=== PATIENT | female | born 1940 | race Caucasian/White ===

== ENCOUNTER → 2017-05-13 | Outpatient (CLI) | payer MEDICARE, OTHER ==
[~2017-05-13] MED LIST: ACET-2222 PO; ACHD5005 PO; CATHETER FLUSH 10 ML SYR IV PRN; CHOL2000 PO; CPR500T PO; D50KC PO; DULO60CA6 PO; ESTR0.5T3 PO; FOLI1TAB24 PO; HYDR1TAB PO; IOHEXOL 350 MG/ML 100 ML (OMNIPAQUE 350) VIAL IV ONE; LEVO500T2 PO; LVT.05T PO; LVT.088T; MECL12.579 PO; MULT-974 PO; NAPR220C11 PO; NF-ESOM40C PO; NITR-65 PO; NS 100 ML (IVPB) BAG IV ONE; OMEP-10 PO; ONDA4TAB8 SL; ONDAN4ODT PO; PARO7.5C PO; PRD20T PO; RNT150T PO; SCP1.5TD TD; SULF1TAB38 PO; TRAM50TA2 PO; VITA15DR3 PO; VITIAMS
[2017-05-13 14:22] LABS: RED BLOOD COUNT 5.46 10^6/uL (4.35-5.85); RED CELL DISTRIBUTION WIDTH 13.9 % (10.0-14.5); WHITE BLOOD COUNT 9.7 10^3/uL (4.3-11.0)
[2017-05-13 14:38] LABS: ALBUMIN 4.4 GM/DL (3.2-4.5); BILIRUBIN,TOTAL 0.6 MG/DL (0.1-1.0); CALCIUM 10.2 MG/DL (8.5-10.1); CREATININE SERUM 0.94 MG/DL (0.60-1.30); POTASSIUM 4.2 MMOL/L (3.6-5.0)
--- NOTE | 2017-05-13 15:18 | Diagnostic Imaging Report ---
PROCEDURE: CT abdomen and pelvis with contrast. TECHNIQUE: Multiple contiguous axial images were obtained through the abdomen and pelvis after administration of intravenous contrast. INDICATION: Abdominal pain with nausea and diarrhea. COMPARISON: CT abdomen and pelvis of 11/30/2015. FINDINGS: Lower chest: The lung bases are clear. No pericardial or pleural effusion. Peritoneum: No free intraperitoneal air or fluid. Liver and biliary system: Diffuse hypoattenuation of the liver suggests hepatic steatosis. No focal hepatic lesion. Status post cholecystectomy. No biliary duct dilatation. Spleen and Pancreas: Spleen is normal. The pancreas enhances normally without mass lesion or peripancreatic inflammatory changes. Adrenals: Normal. tract: Stable large exophytic cyst arising from the posterior mid portion of the right kidney, which measures 8.3 x 5.1 cm. No suspicious enhancing renal mass on either side. No obstructive uropathy or urinary tract calculi. Urinary bladder is decompressed and poorly evaluated. Status post hysterectomy. No adnexal mass. GI tract: Stable small hiatus hernia. In the right lower quadrant of the abdomen, there are multiple fluid-filled small bowel loops which demonstrate circumferential wall thickening indicative of enteritis. There is surrounding stranding in the mesenteric fat. No pneumatosis, abscess formation, or evidence of perforation. No dilated small bowel loops to indicate bowel obstruction. Appendix is normal. Vasculature and Lymph nodes: Normal caliber aorta with scattered atherosclerotic plaques. No abdominal or pelvic lymphadenopathy. Retroaortic left renal vein is noted. Musculoskeletal: No concerning osseous lesion. Right total hip arthroplasty without complication. IMPRESSION: 1. Active enteritis involving multiple bowel loops in the right lower quadrant. This is likely infectious in etiology. An ischemic etiology would have a similar appearance, although this is thought less likely due to minimal atherosclerotic disease throughout the aorta and its branches. 2. No bowel obstruction, perforation, or abscess. 3. Diffuse hepatic steatosis. Dictated by: Dictated on workstation # [id number]
== END ==
LOC: RAD 13:57
PROVIDERS: ATTEND Nurse Practitioner Family
DX: K52.9 Noninfective gastroenteritis and colitis, unspecified (principal); K76.0 Fatty (change of) liver, not elsewhere classified; N28.1 Cyst of kidney, acquired; K44.9 Diaphragmatic hernia without obstruction or gangrene; Z96.641 Presence of right artificial hip joint; Z90.49 Acquired absence of other specified parts of digestive tract
CPT/HCPCS: 36415; 74177; 80053; 85027

== ENCOUNTER → 2017-07-08 | Outpatient (CLI) | payer MEDICARE, OTHER ==
[~2017-07-08] MED LIST changes: -CATHETER FLUSH 10 ML SYR IV PRN; -IOHEXOL 350 MG/ML 100 ML (OMNIPAQUE 350) VIAL IV ONE; -NS 100 ML (IVPB) BAG IV ONE
== END ==
LOC: PREOP 05:20
PROVIDERS: ATTEND Surgery
DX: Z01.818 Encounter for other preprocedural examination (principal); Z12.11 Encounter for screening for malignant neoplasm of colon; K21.9 Gastro-esophageal reflux disease without esophagitis

== ENCOUNTER 2017-07-21 05:37 | Outpatient (CLI) | payer MEDICARE, OTHER ==
[~2017-07-21] VITALS: Ht 167.6 cm; Wt 78.0 kg
[2017-07-21] MEDS ORDERED: CHOL200014 PO (11:07)
[2017-07-21] MEDS ORDERED: ESOM40CA52 PO (11:07)
[2017-07-21] MEDS ORDERED: BUPR-42 PO (11:07)
[2017-07-21] MEDS ORDERED: NAPR220C46 PO (11:07)
== END 2017-07-21 11:08 ==
LOC: PREOP 05:37
PROVIDERS: ATTEND Surgery
DX: Z01.818 Encounter for other preprocedural examination (principal); K21.9 Gastro-esophageal reflux disease without esophagitis; Z12.11 Encounter for screening for malignant neoplasm of colon

== ENCOUNTER 2017-07-25 07:30 | Day surgery (SDC) | payer MEDICARE, OTHER ==
[~2017-07-25] VITALS: Ht 167.6 cm; Wt 78.0 kg
[~2017-07-25 07:30] MED LIST changes: +BUPR-42 PO; +CHOL200014 PO; +ESOM40CA52 PO; +NAPR220C46 PO
--- OUTSIDE RECORDS SUMMARY | 2017-07-25 07:32 | XMS REPORT ---
Author ISMAEL Villeda [employer] Address Unknown Phone Unavailable Care Team Providers Care Refined Syrup Operator Name Role Phone ISMAEL VELASCO Unavailable Allergies No Known Allergies Problems Problem Type Condition Code Onset Dates Condition Status Assessment Screening for tuberculosis Z11.1 Active Assessment Visit for TB skin test Z11.1 Active Medications No Known Medications Procedures Procedure Coding System Code Date TB INTRADERMAL TEST CPT-4 32754 Aug 23, 2016 Results Name Result Date Reference Range Unit Abnormality Flag TB INTRADERMAL ----INDURATION (mm) 0mm 20160825 0 - 15 mm ----Time Read [id number] ----Date read 08/25/1620160825 ----Injected by Ana MAKI [id number] ----Exp. date [id number] ----Read by Anyi [id number] ----Date injected 08/23/201620160825 ----RESULTS (Pos/Neg) negative [id number] ----Time Injected 09:36 AM [id number] ----Site RFA [id number] ----Lot # [id number] Summary Purpose eClinicalWorks Submission
--- OUTSIDE RECORDS SUMMARY | 2017-07-25 07:33 | XMS REPORT | Continuity of Care Document ---
Author Author [facility] Organization [facility] Address Unknown Phone Unavailable Allergies Active Description Code Type Severity Reaction Onset Reported/Identified Relationship to Patient Clinical Status Yes Penicillins [id number] Drug Allergy Mild RASH, ITCHING 12/10/2010 Yes codeine [id number] Drug Allergy Unknown RASH, ITCHING 12/06/2014 Medications Problems Date Dx Coded Attending Type Code Diagnosis Diagnosed By 10/17/2010 Ot 446.5 10/17/2010 Ot 780.4 10/28/2010 Ot 780.4 10/28/2010 Ot 787.01 12/10/2010 Ot 173.0 12/10/2010 Ot 173.3 02/14/2011 Ot 599.0 02/14/2011 Ot 788.0 02/14/2011 Ot 789.09 03/08/2011 Ot 300.00 03/08/2011 Ot 599.0 03/08/2011 Ot 782.1 04/06/2011 Ot 530.19 04/06/2011 Ot 535.40 10/22/2011 Ot 276.51 10/22/2011 Ot 787.03 10/22/2011 Ot 787.91 11/15/2014 Ot 433.30 11/15/2014 Ot 793.89 11/15/2014 Ot V76.12 11/15/2014 Ot 173.0 11/15/2014 Ot 173.3 11/15/2014 Ot 780.79 11/15/2014 Ot V72.63 11/15/2014 Ot V72.81 11/15/2014 Ot V74.8 11/15/2014 Ot 530.81 11/15/2014 Ot 553.3 11/15/2014 Ot 723.1 11/15/2014 Ot 787.20 11/15/2014 Ot 433.10 11/15/2014 Ot 268.9 11/15/2014 Ot 733.90 11/15/2014 Ot V82.81 11/15/2014 KARIN MUSTAFA FACC, ALI FACP CCDS Ot 530.81 11/15/2014 KARIN MUSTAFA FACC, ALI FACP CCDS Ot 627.2 11/15/2014 KARIN MUSTAFA FACC, ALI FACP CCDS Ot 780.79 11/15/2014 KARIN MUSTAFA FACC, ALI FACP CCDS Ot 786.09 11/15/2014 KARIN MUSTAFA FACC, ALI FACP CCDS Ot 786.50 11/15/2014 KARIN MUSTAFA FACC, ALI FACP CCDS Ot 530.81 11/15/2014 KARIN MUSTAFA FACC, ALI FACP CCDS Ot 627.2 11/15/2014 KARIN MUSTAFA FACC, ALI FACP CCDS Ot 780.79 11/15/2014 KARIN MUSTAFA FACC, ALI FACP CCDS Ot 786.09 11/15/2014 KARIN MUSTAFA FACC, ALI FACP CCDS Ot 786.50 11/25/2014 Ot 433.30 11/25/2014 Ot 793.89 11/25/2014 Ot V76.12 11/25/2014 Ot 173.0 11/25/2014 Ot 173.3 11/25/2014 Ot 780.79 11/25/2014 Ot V72.63 11/25/2014 Ot V72.81 11/25/2014 Ot V74.8 11/25/2014 Ot 530.81 11/25/2014 Ot 553.3 11/25/2014 Ot 723.1 11/25/2014 Ot 787.20 11/25/2014 Ot 433.10 11/25/2014 Ot 268.9 11/25/2014 Ot 733.90 11/25/2014 Ot V82.81 11/25/2014 KARIN MUSTAFA FACC, ALI FACP CCDS Ot 530.81 11/25/2014 KARIN MUSTAFA FACC, ALI FACP CCDS Ot 627.2 11/25/2014 KARIN MUSTAFA FACC, ALI FACP CCDS Ot 780.79 11/25/2014 KARIN MUSTAFA FACC, ALI FACP CCDS Ot 786.09 11/25/2014 KARIN MUSTAFA FACC, ALI FACP CCDS Ot 786.50 11/25/2014 KARIN MUSTAFA FACC, ALI FACP CCDS Ot 530.81 11/25/2014 KARIN MUSTAFA FACC, ALI FACP CCDS Ot 627.2 11/25/2014 KARIN BELLC, ALI FACP CCDS Ot 780.79 11/25/2014 KARIN MUSTAFA FACC, ALI FACP CCDS Ot 786.09 11/25/2014 KARIN MUSTAFA FACC, ALI FACP CCDS Ot 786.50 12/06/2014 Ot 272.0 PURE HYPERCHOLESTEROLEM 12/06/2014 Ot 530.81 ESOPHAGEAL REFLUX 12/06/2014 Ot 729.5 PAIN IN LIMB 12/06/2014 Ot 786.50 CHEST PAIN NOS 12/06/2014 Ot V58.69 OT MED,LT,CURRENT USE 11/06/2015 Ot 173.0 11/06/2015 Ot 173.3 11/06/2015 Ot 780.79 11/06/2015 Ot V72.63 11/06/2015 Ot V72.81 11/06/2015 Ot V74.8 11/06/2015 Ot 530.81 11/06/2015 Ot 553.3 11/06/2015 Ot 723.1 11/06/2015 Ot 787.20 11/06/2015 Ot 433.10 11/06/2015 Ot 268.9 11/06/2015 Ot 733.90 11/06/2015 Ot V82.81 11/06/2015 KARIN MUSTAFA FACC, YULIET FACP CCDS Ot 530.81 11/06/2015 KARIN MUSTAFA FACC, ALI FACP CCDS Ot 627.2 11/06/2015 KARIN MUSTAFA FACC, ALI FACP CCDS Ot 780.79 11/06/2015 KARIN BELLC, ALI FACP CCDS Ot 786.09 11/06/2015 KARIN BELLC, ALI FACP CCDS Ot 786.50 11/06/2015 KARIN MUSTAFA FACC, ALI FACP CCDS Ot 530.81 11/06/2015 KARIN MUSTAFA FACC, ALI FACP CCDS Ot 627.2 11/06/2015 KARIN BELLC, ALI FACP CCDS Ot 780.79 11/06/2015 KARIN BELLC, ALI FACP CCDS Ot 786.09 11/06/2015 KARIN BELLC, ALI FACP CCDS Ot 786.50 11/06/2015 JUAN CHEN MD Ot 785.9 11/06/2015 Ot 173.0 11/06/2015 Ot 173.3 11/06/2015 Ot 780.79 11/06/2015 Ot V72.63 11/06/2015 Ot V72.81 11/06/2015 Ot V74.8 11/06/2015 Ot 530.81 11/06/2015 Ot 553.3 11/06/2015 Ot 723.1 11/06/2015 Ot 787.20 11/06/2015 Ot 433.10 11/06/2015 Ot 268.9 11/06/2015 Ot 733.90 11/06/2015 Ot V82.81 11/06/2015 KARIN MUSTAFA FAC, ALI FACP CCDS Ot 530.81 11/06/2015 KARIN MUSTAFA FAC, ALI FACP CCDS Ot 627.2 11/06/2015 KARIN MUSTAFA FAC, ALI FACP CCDS Ot 780.79 11/06/2015 KARIN MUSTAFA FAC, ALI FACP CCDS Ot 786.09 11/06/2015 KARIN MUSTAFA FAC, ALI FACP CCDS Ot 786.50 11/06/2015 KARIN MUSTAFA FAC, ALI FACP CCDS Ot 530.81 11/06/2015 KARIN MUSTAFA FACC, ALI FACP CCDS Ot 627.2 11/06/2015 KARIN MUSTAFA FAC, ALI FACP CCDS Ot 780.79 11/06/2015 KARIN MUSTAFA FAC, ALI FACP CCDS Ot 786.09 11/06/2015 KARIN MUSTAFA FAC, ALI FACP CCDS Ot 786.50 11/06/2015 GUSTAVO MUSTAFA, JUAN A Ot 785.9 11/11/2015 GUSTAVO MUSTAFA, JUAN A Ot 785.9 11/27/2015 BLADIMIR ARCE Ot I65.23 11/30/2015 BRITT MUSTAFA, SATINDER Parra Ot M79.1 MYALGIA 11/30/2015 SATINDER DE LA TORRE MD Ot N28.1 CYST OF KIDNEY, ACQUIRED 11/30/2015 BRITT MUSTAFA, SATINDER Parra Ot R10.11 RIGHT UPPER QUADRANT PAIN 11/30/2015 SATINDER DE LA TORRE MD Ot R11.2 NAUSEA WITH VOMITING, UNSPECIFIED 11/30/2015 SATINDER DE LA TORRE MD Ot R19.7 DIARRHEA, UNSPECIFIED 11/30/2015 SATINDER DE LA TORRE MD Ot Z98.1 ARTHRODESIS STATUS 12/12/2015 BLADIMIR ARCE SOUND TECHNICIAN Ot I65.23 01/12/2016 BLADIMIR ARCE SOUND TECHNICIAN Ot M19.031 01/15/2016 BLADIMIR ARCE SOUND TECHNICIAN Ot M19.031 01/16/2016 BRITT MUSTAFA, SATINDER T Ot M79.1 MYALGIA 01/16/2016 BRITT MUSTAFA, SATINDER T Ot N28.1 CYST OF KIDNEY, ACQUIRED 01/16/2016 SATINDER DE LA TORRE MD T Ot R10.11 RIGHT UPPER QUADRANT PAIN 01/16/2016 SATINDER DE LA TORRE MD T Ot R11.2 NAUSEA WITH VOMITING, UNSPECIFIED 01/16/2016 SATINDER DE LA TORRE MD T Ot R19.7 DIARRHEA, UNSPECIFIED 01/16/2016 BRITT MUSTAFA, SATINDER T Ot Z98.1 ARTHRODESIS STATUS 01/29/2016 BLADIMIR ARCE SOUND TECHNICIAN Ot M19.031 PRIMARY OSTEOARTHRITIS, RIGHT WRIST 01/30/2016 SATINDER DE LA TORRE MD T Ot M79.1 MYALGIA 01/30/2016 BRITT MUSTAFA, SATINDER T Ot N28.1 CYST OF KIDNEY, ACQUIRED 01/30/2016 SATINDER DE LA TORRE MD T Ot R10.11 RIGHT UPPER QUADRANT PAIN 01/30/2016 SATINDER DE LA TORRE MD T Ot R11.2 NAUSEA WITH VOMITING, UNSPECIFIED 01/30/2016 SATINDER DE LA TORRE MD T Ot R19.7 DIARRHEA, UNSPECIFIED 01/30/2016 BRITT MUSTAFA, SATINDER T Ot Z98.1 ARTHRODESIS STATUS 02/19/2016 BLADIMIR ARCE SOUND TECHNICIAN Ot M19.031 PRIMARY OSTEOARTHRITIS, RIGHT WRIST 02/20/2016 THALIA HU SALES PROMOTION DIRECTOR Ot M25.521 PAIN IN RIGHT ELBOW 02/20/2016 THALIA HU SALES PROMOTION DIRECTOR Ot M79.631 PAIN IN RIGHT FOREARM 03/19/2016 LISA RIVERA DO Ot M25.531 PAIN IN RIGHT WRIST 03/19/2016 LISA RIVERA DO Ot M25.531 PAIN IN RIGHT WRIST 04/09/2016 LISA RIVERA DO Ot M24.831 OTH SPECIFIC JOINT DERANGEMENTS OF RIGHT 04/09/2016 LISA RIVERA DO Ot M25.531 PAIN IN RIGHT WRIST 04/09/2016 LISA RIVERA DO Ot M65.841 OTHER SYNOVITIS AND TENOSYNOVITIS, RIGHT 04/21/2016 LISA RIVERA DO Ot M24.831 OTH SPECIFIC JOINT DERANGEMENTS OF RIGHT 04/21/2016 LISA RIVERA DO Ot M25.531 PAIN IN RIGHT WRIST 04/21/2016 LISA RIVERA DO Ot M65.841 OTHER SYNOVITIS AND TENOSYNOVITIS, RIGHT 05/13/2017 Ot 433.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 W O CEREBRAL IN 05/13/2017 Ot 268.9 VITAMIN D DEFICIENCY NOS 05/13/2017 Ot 733.90 BONE CARTILAGE DIS NOS 05/13/2017 Ot V82.81 SCREENING FOR OSTEOPOROSIS 05/13/2017 KARIN MUSTAFA FACC, ALI FACP CCDS Ot 530.81 ESOPHAGEAL REFLUX 05/13/2017 KARIN MUSTAFA FACC, ALI FACP CCDS Ot 627.2 SYMPT MENOPAUSE OR FEMALE CLIMACTERIC ST 05/13/2017 KARIN MUSTAFA FACC, ALI FACP CCDS Ot 780.79 OTH MALAISE FATIGUE 05/13/2017 KARIN MUSTAFA FACC, ALI FACP CCDS Ot 786.09 RESPIRATORY ABNORM NEC 05/13/2017 KARIN MUSTAFA FACC, ALI FACP CCDS Ot 786.50 CHEST PAIN NOS 05/13/2017 KARIN MUSTAFA FACC, ALI FACP CCDS Ot 530.81 ESOPHAGEAL REFLUX 05/13/2017 KARIN MUSTAFA FACC, ALI FACP CCDS Ot 627.2 SYMPT MENOPAUSE OR FEMALE CLIMACTERIC ST 05/13/2017 KARIN MUSTAFA FACC, ALI FACP CCDS Ot 780.79 OTH MALAISE FATIGUE 05/13/2017 KARIN MUSTAFA FACC, ALI FACP CCDS Ot 786.09 RESPIRATORY ABNORM NEC 05/13/2017 KARIN MUSTAFA FACC, ALI FACP CCDS Ot 786.50 CHEST PAIN NOS 05/13/2017 JUAN CHEN MD Ot 785.9 CARDIOVAS SYS SYMP NEC 05/13/2017 BLADIMIR ARCE SOUND TECHNICIAN Ot I65.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 AND STENOSIS OF BILATERAL BUCK 05/13/2017 BLADIMIR ARCE SOUND TECHNICIAN Ot M19.031 PRIMARY OSTEOARTHRITIS, RIGHT WRIST 05/13/2017 THALIA HU Nicholas SALES PROMOTION DIRECTOR Ot M25.521 PAIN IN RIGHT ELBOW 05/13/2017 THALIA HU Nicholas SALES PROMOTION DIRECTOR Ot M79.631 PAIN IN RIGHT FOREARM 05/13/2017 MIGUEL CASTRO LISA Alexander Ot M24.831 OTH SPECIFIC JOINT DERANGEMENTS OF RIGHT 05/13/2017 MIGUEL CASTRO LISA Alexander Ot M25.531 PAIN IN RIGHT WRIST 05/13/2017 MIGUEL CASTRO LISA Alexander Ot M65.841 OTHER SYNOVITIS AND TENOSYNOVITIS, RIGHT 05/16/2017 BLADIMIR ARCE SOUND TECHNICIAN Ot K44.9 DIAPHRAGMATIC HERNIA WITHOUT OBSTRUCTION 05/16/2017 BLADIMIR ARCE SOUND TECHNICIAN Ot K52.9 NONINFECTIVE GASTROENTERITIS AND COLITIS 05/16/2017 BLADIMIR ARCE SOUND TECHNICIAN Ot K76.0 FATTY (CHANGE OF) LIVER, NOT ELSEWHERE C 05/16/2017 BLADIMIR ARCE SOUND TECHNICIAN Ot N28.1 CYST OF KIDNEY, ACQUIRED 05/16/2017 BLADIMIR ARCE SOUND TECHNICIAN Ot Z90.49 ACQUIRED ABSENCE OF OTHER SPECIFIED PART 05/16/2017 BLADIMIR ARCE SOUND TECHNICIAN Ot Z96.641 PRESENCE OF RIGHT ARTIFICIAL HIP JOINT 06/07/2017 BLADIMIR ARCE SOUND TECHNICIAN Ot K44.9 DIAPHRAGMATIC HERNIA WITHOUT OBSTRUCTION 06/07/2017 BLADIMIR ARCE SOUND TECHNICIAN Ot K52.9 NONINFECTIVE GASTROENTERITIS AND COLITIS 06/07/2017 BLADIMIR ARCE SOUND TECHNICIAN Ot K76.0 FATTY (CHANGE OF) LIVER, NOT ELSEWHERE C 06/07/2017 BLADIMIR ARCE SOUND TECHNICIAN Ot N28.1 CYST OF KIDNEY, ACQUIRED 06/07/2017 BLADIMIR ARCE SOUND TECHNICIAN Ot Z90.49 ACQUIRED ABSENCE OF OTHER SPECIFIED PART 06/07/2017 BLADIMIR ARCE SOUND TECHNICIAN Ot Z96.641 PRESENCE OF RIGHT ARTIFICIAL HIP JOINT Procedures Results Test Result Range Automated blood complete blood count (hemogram) panel - 05/13/17 14:12 Blood leukocytes automated count (number/volume) 9.7 10*3/ uL 4.3-11.0 Blood erythrocytes automated count (number/volume) 5.46 10*6 /uL 4.35-5.85 Venous blood hemoglobin measurement (mass/volume) 16.4 g/dL 11.5-16.0 Blood hematocrit (volume fraction) 49 % 35-52 Automated erythrocyte mean corpuscular volume 89 [foz_us] 80-99 Automated erythrocyte mean corpuscular hemoglobin (mass per erythrocyte) 30 pg 25-34 Automated erythrocyte mean corpuscular hemoglobin concentration measurement ( mass/volume) 34 g/dL 32-36 Automated erythrocyte distribution width ratio 13.9 % 10.0-14.5 Automated blood platelet count (count/volume) 298 10*3/uL 130-400 Automated blood platelet mean volume measurement 10.0 [foz_ us] 7.4-10.4 Comprehensive metabolic panel - 05/13/17 14:12 Serum or plasma sodium measurement (moles/volume) 142 mmol/ L 135-145 Serum or plasma potassium measurement (moles/volume) 4.2 mmol/L 3.6-5.0 Serum or plasma chloride measurement (moles/volume) 106 mmol /L 98-107 Carbon dioxide 25 mmol/L 21-32 Serum or plasma anion gap determination (moles/volume) 11 mmol/L 5-14 Serum or plasma urea nitrogen measurement (mass/volume) 7 mg /dL 7-18 Serum or plasma creatinine measurement (mass/volume) 0.94 mg /dL 0.60-1.30 Serum or plasma urea nitrogen/creatinine mass ratio 7 NRG Serum or plasma creatinine measurement with calculation of estimated glomerular filtration rate 58 NRG Serum or plasma glucose measurement (mass/volume) 116 mg/dL 70-105 Serum or plasma calcium measurement (mass/volume) 10.2 mg/ dL 8.5-10.1 Serum or plasma total bilirubin measurement (mass/volume) 0.6 mg/dL 0.1-1.0 Serum or plasma alkaline phosphatase measurement (enzymatic activity/volume) 134 U/L 40-136 Serum or plasma aspartate aminotransferase measurement (enzymatic activity/ volume) 25 U/L 5-34 Serum or plasma alanine aminotransferase measurement (enzymatic activity/volume ) 27 U/L 0-55 Serum or plasma protein measurement (mass/volume) 8.0 g/dL 6.4-8.2 Serum or plasma albumin measurement (mass/volume) 4.4 g/dL 3.2-4.5 Encounters ACCT No. Visit Date/Time Discharge Status Pt. Type Provider Facility Loc./Unit Complaint [id number] 07/08/2017 05:20:00 2016 23:59:59 CLS Outpatient TREVOR BEACH MD [facility] PREOP SCREENING/CHRONIC GERD [id number] 05/13/2017 13:57:00 2016 23:59:59 CLS Outpatient BLADIMIR ARCE [facility] RAD ABD PAIN [id number] 03/19/2016 17:02:00 2015 23:59:59 CLS Outpatient MIGUEL LISA [facility] RAD RT WRIST PAIN [id number] 02/19/2016 09:38:00 2015 23:59:59 CLS Outpatient THALIA HU APRN [facility] RAD RT ELBOW AND FOREARM PAIN SEVERE [id number] 01/09/2016 14:34:00 2015 23:59:59 CLS Outpatient BLADIMIR ARCE [facility] RAD RT WRIST PAIN [id number] 11/30/2015 09:03:00 2015 13:12:00 DIS Emergency BRITT MUSTAFA, SATINDER Parra [facility] ER BODY ACHES,VOMITING,DIARRHEA [id number] 11/06/2015 12:33:00 2015 23:59:59 CLS Outpatient BLADIMIR ARCE [facility] RAD STENOSIS [id number] 11/18/2014 11:00:00 2014 23:59:59 CLS Outpatient JUAN CHEN MD [facility] RAD CAROTID BRUIT [id number] 07/30/2013 10:59:00 2012 23:59:59 CLS Outpatient KARIN MUSTAFA FACC, YULIET BERRIOS CCDS [facility] RAD CP,DYSPNEA,WEAKNESS [id number] 07/25/2013 07:44:00 2012 23:59:59 CLS Outpatient YULIET FRAZIER MD, FACC, FACP CCDS [facility] CARD CP,DYSPNEA,WEAKNESS [id number] 07/25/2017 09:15:00 PEN Preadmit TREVOR BEACH MD [facility] ENDO SCREENING/CHRONIC GERD [id number] 12/06/2014 06:47:00 Document Registration [id number] 01/05/2013 08:43:00 Document Registration [id number] 02/11/2012 10:40:00 Document Registration [id number] 10/22/2011 06:11:00 Document Registration [id number] 04/22/2011 08:29:00 Document Registration [id number] 04/06/2011 07:26:00 Document Registration [id number] 03/08/2011 06:38:00 Document Registration [id number] 02/14/2011 16:13:00 Document Registration [id number] 12/10/2010 05:38:00 Document Registration [id number] 12/03/2010 11:01:00 Document Registration [id number] 10/28/2010 12:35:00 Document Registration [id number] 10/17/2010 12:21:00 Document Registration [id number] 03/30/2010 09:50:00 Document Registration
[2017-07-25 07:57] VITALS: BP 114/52
[2017-07-25] MEDS ORDERED: HURRICAINE EXT TUBE (BENZOCAINE) XX PRN (08:00)
[2017-07-25] MEDS ORDERED: NS IV 500 ML 500 ML IV PRN (08:00)
[2017-07-25] MEDS ORDERED: fentaNYL INJECTION 100 MCG/2 ML AMP ONE ×2 (09:25)
[2017-07-25] MEDS ORDERED: HURRICAINE EXT TUBE (BENZOCAINE) ONE (09:26)
[2017-07-25] MEDS ORDERED: MIDAZOLAM 2 MG/2 ML (VERSED) VIAL ONE ×4 (09:26)
--- NOTE | 2017-07-25 09:35 | History & Physicial ---
History of Present Illness History of Present Illness Reason for visit/HPI to undergo upper endoscopy to investigate symptoms of reflux disease and concomitant screening colonoscopy. Reports being told about a rectal polyp on a screening colonoscopy 15 years ago. No family history of colon cancer. Date of Admission Date Seen by Provider: Jul 25, 2017 Time Seen by Provider: 09:32 I consulted on this patient on 07/25/17 09:31 Attending Physician Trevor Perales MD Admitting Physician Abril Sheridan MD Consult Allergies and Home Medications Allergies Coded Allergies: Penicillins (Verified Allergy, Mild, RASH, ITCHING, 12/10/10) codeine (Unverified Allergy, Unknown, RASH, ITCHING, 12/06/14) Home Medications Bupropion HCl 150 Mg Tab.er.24h, 150 MG PO DAILY, (Reported) Cholecalciferol (Vitamin D3) 2,000 Unit Tablet, 2,000 UNIT PO DAILY, (Reported) Esomeprazole Magnesium 40 Mg Capsule.dr, 40 MG PO DAILY, (Reported) Naproxen Sodium 220 Mg Capsule, 440 MG PO DAILY, (Reported) take 2 (220mg) tabs Past Cslzafl-Dhdozo-Mdqqdk Hx Patient Social History Marrital Status: Employed/Student: retired Alcohol Use: Denies Use Recreational Drug Use: No Smoking Status: Former Smoker Recent Foreign Travel: No Contact w/other who traveled: No Recent Hopitalizations: No Recent Infectious Disease Expo: No Immunizations Up To Date Date of Pneumonia Vaccine: Jul 03, 2013 Date of Influenza Vaccine: Jul 03, 2016 Seasonal Allergies Seasonal Allergies: No Surgeries Yes Section, Hysterectomy, Joint Replacement, Orthopedic Respiratory No Cardiovascular Yes High Cholesterol Reproductive System : Yes Hx Reproductive Disorders: No Sexually Transmitted Disease: No FA[employer] FO[employer]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 History: Hysterectomy Gastrointestinal Yes Gastroesophageal Reflux Musculoskeletal Yes Arthritis, Chronic Back Pain Endocrine History of Endocrine Disorders: No Cancer Skin Psychosocial History of Psychiatric Problem: Yes Behavioral Health Disorders: Anxiety, Depression Integumentary Skin/Integumentary Disorders: Psoriasis Blood Transfusions Adverse Reaction to a Blood Tr: No Constitutional: no symptoms reported EENTM: no symptoms reported Respiratory: no symptoms reported Cardiovascular: no symptoms reported Gastrointestinal: see HPI Genitourinary: no symptoms reported Musculoskeletal: joint pain Skin: rash Psychiatric/Neurological: Anxiety Physical Exam Vital Signs Vital Sign - Last 12Hours 07/25/17 07:57 Temp 97.5 Pulse 81 Resp 16 B/P (MAP) 114/52 Pulse Ox 95 O2 Delivery Room Air Capillary Refill : General Appearance: No Apparent Distress HEENT: Normal ENT Inspection Neck: Normal Inspection Respiratory: Lungs Clear Cardiovascular: Regular Rate, Rhythm Gastrointestinal: Non Tender, Soft Back: Normal Inspection Extremity: Normal Inspection Neurologic/Psychiatric: Alert, Oriented x3 Skin: Warm/Dry Assessment/Plan Assessment and Plan epigastric pain. Personal history of polyps.4 upper endoscopy and colonoscopy. Details reviewed thoroughly and she is in agreement to proceed. Problems: TREVOR PERALES MD Jul 25, 2017 9:35 am
--- NOTE | 2017-07-25 09:36 | Conscious Sedation/ASA ---
Conscious Sedation Pre-Proced Time Reviewed: 08:56 ASA Class: 2 Airway Mallampati Classification: ([place] appropriate class) I. II. III, IV Lungs Heart ASA score ASA 1: a normal healthy patient ASA 2: a patient with a mild systemic disease (mid diabetes, controlled hypertension, obesity ASA 3: a patient with a severe systemic disease that limits activity (angina , COPD, prior Myocardial infarction) ASA 4: a patient with an incapacitating disease that is a constant threat to life (CHF, renal failure) ASA 5: a moribund patient not expected to survive 24 hrs. (ruptured aneurysm) ASA 6: a declared brain patient whose organs are being harvested. For emergent operations, add the letter E after the classification Grade 2 Sedation Plan: Discussed options with patient/fam Note The patient is an appropriate candidate to undergo the planned procedure, sedation, and anesthesia. The patient immediately re-assessed prior to indication. TREVOR BEACH MD Jul 25, 2017 9:36 am
[2017-07-25] MEDS: fentaNYL INJECTION 100 MCG/2 ML AMP IVP PRN ×2 (09:39→09:57)
[2017-07-25] MEDS: MIDAZOLAM 2 MG/2 ML (VERSED) VIAL IVP PRN ×3 (09:40→10:05)
--- NOTE | 2017-07-25 10:18 | Endo Procedure Record ---
Endo Procedure Report Date of Procedure Jul 25, 2017 Surgeon (s) TREVOR BEACH MD Post Procedure/Op Diagnosis EGD: Hiatal hernia. Antral erosions and distal gastritis colonoscopy: 1 mm polyp at mid transverse colon Procedure Performed EGD with antral biopsy Colonoscopy to cecum hot biopsy polypectomy Description of Procedure Anesthesia Type: Conscious Sedation Specimen(s) collected/removed antral mucosa. Transverse colon polyp Description of the Procedure indication for procedure: This lady came in for an endoscopic assessment of symptoms of gastroesophageal reflux and for screening colonoscopy. Informed consent was obtained after reviewing the procedures in detail. Description of the procedures: EGD: She was placed in left lateral decubitus position and her vital signs were monitored. Conscious sedation was achieved using Versed and fentanyl. The proximal gastroscope was then introduced down the esophagus, past the stomach, into the proximal duodenum. Findings Esophagus: Short, hiatal hernia with no esophagitis. Stomach: 1 mm distal gastric erosion with mild gastritis. Biopsy for H. pylori was obtained. Duodenum: Normal She tolerated the procedure well and was turned around in preparation for colonoscopy Impression: Symptoms of reflux disease. Distal gastritis and gastric erosion. Helicobacter status pending. Colonoscopy/polypectomy: Digital rectal examination was unremarkable. The colonoscope was then introduced in the rectum and advanced with some difficulty to the cecum. It was then withdrawn slowly and the mucosa examined in a systematic fashion Findings: Internal hemorrhoids of mild severity. 1 mm polyp at the mid transverse colon, that is excised with hot biopsy forceps. She tolerated the procedures well and was taken back to the nursing area in a stable condition. Impression: Screening colonoscopy. Small polyp excised from the transverse colon. Recommend repeating in 5 years. Copies To: JUAN CHEN MD, XAVIER M MD Jul 25, 2017 10:18 am
--- NOTE | 2017-07-25 10:19 | Discharge Inst-Simple/Standard ---
Discharge Inst-Standard Discharge Medications New, Converted or Re-Newed RX: Other Patient Instructions/Follow Up Plan of Care/Instructions/FU: repeat colonoscopy in 5 years Activity as Tolerated: Yes Discharge Diet: No Restrictions [place] MD Jul 25, 2017 10:19 am
[2017-07-25 10:45] VITALS: BP 127/65
[2017-07-25 11:10] VITALS: BP 116/76
[2017-07-25 11:16] VITALS: BP 116/76
== END 2017-07-25 11:20 | disposition home or self-care (01) ==
LOC: ENDO 07:30
PROVIDERS: ATTEND Surgery
DX: K25.9 Gastric ulcer, unspecified as acute or chronic, without hemorrhage or perforation (principal); K63.5 Polyp of colon; K29.70 Gastritis, unspecified, without bleeding; K44.9 Diaphragmatic hernia without obstruction or gangrene; Z87.891 Personal history of nicotine dependence; E78.00 Pure hypercholesterolemia, unspecified; F32.9 Major depressive disorder, single episode, unspecified; F41.9 Anxiety disorder, unspecified; Z86.010 Personal history of colon polyps
CPT/HCPCS: 88305

== ENCOUNTER → 2018-04-14 | Outpatient (CLI) | payer MEDICARE, OTHER ==
--- NOTE | 2018-04-14 15:15 | Diagnostic Imaging Report ---
PROCEDURE: US carotid duplex, bilateral. TECHNIQUE: Multiple real-time grayscale images were obtained over the carotid arteries in various projections, bilaterally. Additional duplex Doppler and color Doppler images were also obtained. INDICATION: Carotid bruit. FINDINGS: There is mild plaque at the right carotid bifurcation. The velocities are within normal limits. No velocity elevation or stenosis is identified. Both vertebral arteries demonstrate antegrade flow. IMPRESSION: No evidence of a hemodynamically significant stenosis. Parameters based on the consensus panel Joseph-Scale and Doppler ultrasound criteria published August 2003, Radiology, Volume 229. DOPPLER (peak systolic velocity M/S Right Left CCA .74 .75 ICA Proximal .65 .68 ICA Mid .72 .82 ICA Distal .58 1.07 RATIO 1.0 1.7 ECA 1.03 1.01 VERT .60 .50 Dictated by: Dictated on workstation # [id number]
== END ==
LOC: RAD 14:05
PROVIDERS: ATTEND Nurse Practitioner Family
DX: R09.89 Other specified symptoms and signs involving the circulatory and respiratory systems (principal)
CPT/HCPCS: 93880

== ENCOUNTER 2018-06-14 05:57 | Outpatient (CLI) | payer MEDICARE, OTHER ==
[~2018-06-14 05:57] MED LIST changes: -CHOL200014 PO; +CHOL200085 PO; +CYAN10007 PO; +MULT-35 PO
== END 2018-06-14 13:26 | disposition home or self-care (01) ==
LOC: PREOP 05:57
PROVIDERS: ATTEND Specialist
DX: Z01.818 Encounter for other preprocedural examination (principal)

== ENCOUNTER 2018-06-16 07:22 | Day surgery (SDC) | payer MEDICARE, OTHER ==
[~2018-06-16] VITALS: Ht 167.6 cm; Wt 78.0 kg
[2018-06-16] MEDS ORDERED: EPINEPHrine INJECTION 1 MG/ML AMP INJ ONE (07:30)
[2018-06-16] MEDS ORDERED: LIDOCAINE PF 1% 2 ML AMP IR PRN (07:30)
[2018-06-16] MEDS ORDERED: VANCOMYCIN/BSS (COMPOUNDED) 10 MG/ML SYR OP ONE (07:30)
[2018-06-16] MEDS ORDERED: POVIDONE (BETADINE) OPHTH SOLN 5% 30 ML OP ONE (07:30)
[2018-06-16] MEDS ORDERED: TIMOLOL MALEATE 0.5% 5 ML (TIMOPTIC) BTL OU PRN (07:30)
--- OUTSIDE RECORDS SUMMARY | 2018-06-16 07:31 | XMS REPORT | CCD ---
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 Name Role Phone PP Unavailable CCM Unavailable Summary Purpose Interface Exchange Insurance Providers Payer name Policy type / Coverage type Covered republican ID Effective Begin Date Effective End Date WPS Medicare Part B Medicare Part B [id number] Unknown Unknown E[employer] LIFE Medicare Part B [id number] Unknown Unknown Family history Sister Diagnosis Age At Onset No Family Disease Entered N/A Mother Diagnosis Age At Onset Osteoporosis Unknown Daughter Diagnosis Age At Onset No Family Disease Entered N/A Father Diagnosis Age At Onset Heart Attack Unknown Daughter Diagnosis Age At Onset No Family Disease Entered N/A Side Diagnosis Age At Onset Diabetes mellitus Type 2 Unknown Brother Diagnosis Age At Onset Heart Attack Unknown Cancer Unknown Social History Social History Element Codes Description Effective Dates Tobacco history SNOMED CT: 486934517 Never smoker 11/30/[address]: 311242682 Never drinks alcohol 11/30/2012 Has the patient ever used illegal drugs? Unknown Has never used illegal drugs 11/30/2012 Has the patient used marijuana? Unknown No 11/30/2012 Has the patient used cocaine? Unknown No 11/30/2012 Allergies, Adverse Reactions, Alerts Substance Reaction Codes Entered Date Inactivated Date Status CODEINE rash RxNorm: 2670 11/30/2012 No Inactive Date Active Past Medical History Illness Codes Condition Status Onset Date Resolved Date Generalized anxiety disorder ICD-9: 300.00 ICD-10: F41.1 Active 06/21/2017 Unknown Major depressive disorder, single episode, moderate ICD-9: 296.22 ICD-10: F32.1 Active 06/21/2017 Unknown Other psoriasis ICD-9 : 696.1 ICD-10: L40.8 Active 11/16/2016 Unknown Periapical abscess without sinus ICD-9: 522.4 ICD-10: K04.7 Active 10/18/2017 Unknown Gastro-esophageal reflux disease without esophagitis ICD-9: 530.81 ICD-10: K21.9 Active 06/14/2017 Unknown Generalized abdominal pain ICD-9: 789.07 ICD-10: R10.84 Active 05/13/2017 Unknown Major depressive disorder, single episode, unspecified ICD-9: 311 ICD-10: F32.9 Active 04/12/2016 Unknown Other pruritus ICD-9: 698.8 ICD-10: L29.8 Active 06/14/2017 Unknown Infectious gastroenteritis and colitis, unspecified ICD-9: 009.0 ICD-10: A09 Active 05/13/2017 Unknown Nausea ICD-9: 787.02 ICD-10: R11.0 Active 12/08/2015 Unknown Other fatigue ICD-9: 780.79 ICD-10: R53.83 Active 01/13/2017 Unknown Vitamin B12 deficiency anemia, unspecified ICD-9: 266.2 ICD-10: D51.9 Active 10/30/2015 Unknown Vitamin D deficiency, unspecified ICD-9: 268.9 ICD-10: E55.9 Active 12/05/2012 Unknown Other chronic pain ICD -9: 338.29 ICD-10: G89.29 Active 06/09/2016 Unknown Primary generalized (osteo)arthritis ICD-9: 715.09 ICD-10: M15.0 Active 06/09/2016 Unknown Muscle weakness (generalized) ICD-9: 780.79 ICD-10: M62.81 Active 04/12/2016 Unknown Pain in left hand ICD- 9: 729.5 ICD-10: M79.642 Active 04/12/2016 Unknown Pain in right hand ICD -9: 729.5 ICD-10: M79.641 Active 04/12/2016 Unknown Cellulitis of chest wall ICD-9: 682.2 ICD-10: L03.313 Active 03/21/2016 Unknown Pain in right wrist ICD-9: 719.43 ICD-10: M25.531 Active 03/01/2016 Unknown Tinea corporis ICD-9: 110.5 ICD-10: B35.4 Active 02/22/2016 Unknown Rash and other nonspecific skin eruption ICD-9: 782.1 ICD-10: R21 Active 11/13/2015 Unknown Mixed hyperlipidemia ICD-9: 272.4 ICD-10: E78.2 Active 10/30/2015 Unknown Biceps tendonitis ICD- 9: 726.12 Active 12/12/2014 Unknown CAROTID ART OCC W/O INFARC ICD-9: 433.10 Active 11/11/2014 Unknown HYPERLIPIDEMIA ICD-9: 272.4 Active 11/11/2014 Unknown Diaphoresis ICD-9: 780.8 Active 07/03/2014 Unknown Fatigue ICD-9: 780.79 Active 07/03/2014 Unknown Sleep-disordered breathing ICD-9: 780.59 Active 07/03/2014 Unknown Tinea corporis ICD-9: 110.5 Active 07/03/2014 Unknown VACCIN FOR INFLUENZA ICD-9: V04.81 ICD-10: Z23 Active 07/03/2014 Unknown Sciatica Unknown Active 12/04/2013 Unknown Rash ICD-9: 782.1 Active 12/04/2013 Unknown Sciatica ICD-9: 724.3 Active 12/04/2013 Unknown Post menopausal syndrome ICD-9: V49.81 Active 07/16/2013 Unknown Abdominal pain ICD-9: 789.00 Active 07/02/2013 Unknown Hot flashes not due to menopause ICD-9: 782.62 Active 2012 Unknown Nausea ICD-9: 787.02 Active 07/02/2013 Unknown Acute back pain ICD-9 : 724.5 Active 06/18/2013 Unknown Acute oral pain ICD-9 : 528.9 Active 06/18/2013 Unknown Chills ICD-9: 780.64 Active 06/18/2013 Unknown Vitamin B12 deficiency ICD-9: 266.2 Active 02/15/2013 Unknown Vitamin B12 deficiency (dietary) anemia ICD-9: 281.1 Active Unknown Hyperlipidemia Unknown Active 12/15/2012 Unknown Elevated blood pressure ICD-9: 796.2 Active 12/15/2012 Unknown Abnormal glucose ICD-9 : 790.29 Active 12/05/2012 Unknown Arthritis ICD-9: 716.90 Active 12/05/2012 Unknown Benign essential tremor ICD-9: 333.1 Active 12/05/2012 Unknown Depressive disorder ICD-9: 311 Active 12/05/2012 Unknown Drug therapy ICD-9: V58.69 Active 12/05/2012 Unknown Insomnia ICD-9: 780.52 Active 12/05/2012 Unknown Peripheral neuropathy ICD-9: 356.9 Active 12/05/2012 Unknown Routine physicl lab exam ICD-9: V72.62 Active 12/05/2012 Unknown Vitamin d deficiency ICD-9: 268.9 Active 12/05/2012 Unknown Depression Unknown Active 11/30/2012 Unknown Gastroesophageal reflux disease Unknown Active 11/30/2012 Unknown shingles Unknown Active 11/30/2012 Unknown ESOPHAGEAL REFLUX ICD- 9: 530.81 Active 11/30/2012 Unknown Problems Condition Codes Effective Dates Condition Status Generalized anxiety disorder ICD-9: 300.00 ICD-10: F41.1 06/21/2017 Active Major depressive disorder, single episode, moderate ICD-9: 296.22 ICD-10: F32.1 06/21/2017 Active Other psoriasis ICD-9 : 696.1 ICD-10: L40.8 11/16/2016 Active Periapical abscess without sinus ICD-9: 522.4 ICD-10: K04.7 10/18/2017 Active Gastro-esophageal reflux disease without esophagitis ICD-9: 530.81 ICD-10: K21.9 06/14/2017 Active Generalized abdominal pain ICD-9: 789.07 ICD-10: R10.84 05/13/2017 Active Major depressive disorder, single episode, unspecified ICD-9: 311 ICD-10: F32.9 04/12/2016 Active Other pruritus ICD-9: 698.8 ICD-10: L29.8 06/14/2017 Active Infectious gastroenteritis and colitis, unspecified ICD-9: 009.0 ICD-10: A09 05/13/2017 Active Nausea ICD-9: 787.02 ICD-10: R11.0 12/08/2015 Active Other fatigue ICD-9: 780.79 ICD-10: R53.83 01/13/2017 Active Vitamin B12 deficiency anemia, unspecified ICD-9: 266.2 ICD-10: D51.9 10/30/2015 Active Vitamin D deficiency, unspecified ICD-9: 268.9 ICD-10: E55.9 12/05/2012 Active Other chronic pain ICD -9: 338.29 ICD-10: G89.29 06/09/2016 Active Primary generalized (osteo)arthritis ICD-9: 715.09 ICD-10: M15.0 06/09/2016 Active Muscle weakness (generalized) ICD-9: 780.79 ICD-10: M62.81 04/12/2016 Active Pain in left hand ICD- 9: 729.5 ICD-10: M79.642 04/12/2016 Active Pain in right hand ICD -9: 729.5 ICD-10: M79.641 04/12/2016 Active Cellulitis of chest wall ICD-9: 682.2 ICD-10: L03.313 03/21/2016 Active Pain in right wrist ICD-9: 719.43 ICD-10: M25.531 03/01/2016 Active Tinea corporis ICD-9: 110.5 ICD-10: B35.4 02/22/2016 Active Rash and other nonspecific skin eruption ICD-9: 782.1 ICD-10: R21 11/13/2015 Active Mixed hyperlipidemia ICD-9: 272.4 ICD-10: E78.2 10/30/2015 Active Biceps tendonitis ICD- 9: 726.12 12/12/2014 Active CAROTID ART OCC W/O INFARC ICD-9: 433.10 11/11/2014 Active HYPERLIPIDEMIA ICD-9: 272.4 11/11/2014 Active Diaphoresis ICD-9: 780.8 07/03/2014 Active Fatigue ICD-9: 780.79 07/03/2014 Active Sleep-disordered breathing ICD-9: 780.59 07/03/2014 Active Tinea corporis ICD-9: 110.5 07/03/2014 Active VACCIN FOR INFLUENZA ICD-9: V04.81 ICD-10: Z23 07/03/2014 Active Sciatica Unknown 12/04/2013 Active Rash ICD-9: 782.1 12/04/2013 Active Sciatica ICD-9: 724.3 12/04/2013 Active Post menopausal syndrome ICD-9: V49.81 07/16/2013 Active Abdominal pain ICD-9: 789.00 07/02/2013 Active Hot flashes not due to menopause ICD-9: 782.62 07/02/2013 Active Nausea ICD-9: 787.02 07/02/2013 Active Acute back pain ICD-9 : 724.5 06/18/2013 Active Acute oral pain ICD-9 : 528.9 06/18/2013 Active Chills ICD-9: 780.64 06/18/2013 Active Vitamin B12 deficiency ICD-9: 266.2 02/15/2013 Active Vitamin B12 deficiency (dietary) anemia ICD-9: 281.1 02/15/2013 Active Hyperlipidemia Unknown 12/15/2012 Active Elevated blood pressure ICD-9: 796.2 12/15/2012 Active Abnormal glucose ICD-9 : 790.29 12/05/2012 Active Arthritis ICD-9: 716.90 12/05/2012 Active Benign essential tremor ICD-9: 333.1 12/05/2012 Active Depressive disorder ICD-9: 311 12/05/2012 Active Drug therapy ICD-9: V58.69 12/05/2012 Active Insomnia ICD-9: 780.52 12/05/2012 Active Peripheral neuropathy ICD-9: 356.9 12/05/2012 Active Routine physicl lab exam ICD-9: V72.62 12/05/2012 Active Vitamin d deficiency ICD-9: 268.9 12/05/2012 Active Depression Unknown 11/30/2012 Active Gastroesophageal reflux disease Unknown 11/30/2012 Active shingles Unknown 11/30/2012 Active ESOPHAGEAL REFLUX ICD- 9: 530.81 11/30/2012 Active Medications Medication Codes Instructions Start Date Stop Date Status Fill Instructions Nexium 40 mg capsule,delayed release RxNorm: 968955 TAKE ONE CAPSULE BY MOUTH ONCE DAILY 10/31/2017 No Stop Date Active Cymbalta 30 mg capsule,delayed release RxNorm: 952685 1 Capsule(s) PO daily 10/18/2017 04/15/2018 Active tramadol 50 mg tablet RxNorm: 975308 1 Tablet(s) PO TID as needed 10/18/2017 No Stop Date Active clindamycin HCl 300 mg capsule RxNorm: 511284 1 Capsule(s) PO TID 10/18/2017 10/27/2017 Inactive Cymbalta 30 mg capsule,delayed release RxNorm: 808619 1 Capsule(s) PO daily 10/04/2017 10/17/2017 Inactive Cymbalta 30 mg capsule,delayed release RxNorm: 964355 1 Capsule(s) PO daily 10/04/2017 10/03/2017 Inactive betamethasone dipropionate 0.05 % topical cream RxNorm: 298119 1 Application TOP BID 08/31/2017 No Stop Date Active prednisone 20 mg tablet RxNorm: 329206 2 Tablet(s) PO daily 09/04/2017 Inactive Wellbutrin XL 150 mg 24 hr tablet, extended release RxNorm: 656788 1 Tablet(s) PO daily 07/26/2017 10/17/2017 Inactive Wellbutrin XL 150 mg 24 hr tablet, extended release RxNorm: 366846 1 Tablet(s) PO daily 06/21/2017 07/20/2017 Inactive hydroxyzine HCl 25 mg tablet RxNorm: 762317 1 Tablet(s) PO TID as needed 06/14/2017 No Stop Date Active itching/insomnia Pepcid 20 mg tablet RxNorm: 818092 1 Tablet(s) PO BID 201606/23/2017 Inactive Flagyl 500 mg tablet RxNorm: 309430 1 Tablet(s) PO TID 201605/22/2017 Inactive Cipro 500 mg tablet RxNorm: 316541 1 Tablet(s) PO BID 201605/22/2017 Inactive Lexapro 20 mg tablet RxNorm: 608060 Tablet(s) TAKE ONE TABLET BY MOUTH ONCE DAILY 03/04/2017 08/15/2017 Inactive Nexium 40 mg capsule,delayed release RxNorm: 535593 TAKE ONE CAPSULE BY MOUTH ONCE DAILY 02/14/2017 08/15/2017 Inactive Vitamin D2 50,000 unit capsule RxNorm: 796808 1 Capsule(s) PO QW 01/19/2017 04/12/2017 Inactive one weekly for 12 weeks then 2000 units daily thereafter Lexapro 20 mg tablet RxNorm: 828968 TAKE ONE TABLET BY MOUTH ONCE DAILY 01/14/2017 03/03/2017 Inactive betamethasone dipropionate 0.05 % topical ointment RxNorm: 495130 1 Application TOP BID in between gentamycin applications 11/16/2016 No Stop Date Active prednisone 10 mg tablet RxNorm: 559662 Tablet(s) PO UD 201610/17/2017 Inactive 6,6,5,5,4,4,3,3,2,2,1,1, then 1/2 every other day x 2 doses Lexapro 20 mg tablet RxNorm: 803199 Tablet(s) 1 Tablet(s) PO daily 08/27/2016 03/03/2017 Inactive Lexapro 20 mg tablet RxNorm: 965342 1 Tablet(s) PO daily 201508/26/2016 Inactive Lexapro 20 mg tablet RxNorm: 222742 1 Tablet(s) PO daily 201508/24/2016 Inactive Lexapro 20 mg tablet RxNorm: 533355 1 Tablet(s) PO daily 201507/21/2016 Inactive hydrocodone 5 mg-acetaminophen 325 mg tablet RxNorm: 498805 1 Tablet(s) PO Q6 PRN 06/10/2016 No Stop Date Active hydroxyzine HCl 25 mg tablet RxNorm: 095817 1 Tablet(s) PO HS PRN 06/10/2016 07/09/2016 Inactive itching/anxiety/insomnia meloxicam 7.5 mg tablet RxNorm: 769692 2 Tablet(s) PO daily 05/201608/16/2017 Inactive Lexapro 20 mg tablet RxNorm: 678903 1 Tablet(s) PO daily 201506/10/2016 Inactive prednisone 10 mg tablets in a dose pack RxNorm: 340730 1 Tablet(s) PO UD 04/13/2016 04/18/2016 Inactive 6-5-4-3-2-1 Kenalog 40 mg/mL suspension for injection RxNorm: 5979947 Milliliter(s) Inj 04/13/2016 04/13/2016 Inactive Lexapro 20 mg tablet RxNorm: 403968 1 Tablet(s) PO daily 201504/29/2016 Inactive Vitamin D3 5,000 unit tablet RxNorm: 144440 2 Tablet(s) PO daily 03/22/2016 No Stop Date Active gentamicin 0.1 % topical ointment RxNorm: 487086 1 Application TOP QID to affected skin tissue 03/22/20162015 Inactive folic acid 1 mg tablet RxNorm: 435675 1 Tablet(s) PO daily 10/17/2017 Inactive betamethasone dipropionate 0.05 % topical ointment RxNorm: 652770 1 Application TOP BID in between gentamycin applications 03/15/2016 11/15/2016 Inactive gentamicin 0.1 % topical ointment RxNorm: 927870 1 Application TOP QID to affected skin tissue 03/02/20162015 Inactive ciprofloxacin 500 mg tablet RxNorm: 892265 1 Tablet(s) PO BID 03/02/2016 03/11/2016 Inactive nystatin 100,000 unit/gram topical cream RxNorm: 206206 1 Application TOP BID 02/23/2016 No Stop Date Active Lexapro 20 mg tablet RxNorm: 995602 1 Tablet(s) PO daily 201503/23/2016 Inactive prednisone 20 mg tablet RxNorm: 773812 2 Tablet(s) PO daily 02/27/2016 Inactive Ultram 50 mg tablet RxNorm: 400430 1 Tablet(s) PO Q6 PRN as needed 02/19/2016 03/01/2016 Inactive duloxetine 60 mg capsule,delayed release RxNorm: 985420 1 Capsule(s) PO daily 01/26/2016 03/01/2016 Inactive [SAVINGS FOR UNINSURED PATIENTS -- BIN:815244, PCN: ASPROD1, Group: [id number], ID# [id number], Process claim through [employer], for questions: . THIS IS NOT INSURANCE.] Nexium 40 mg capsule,delayed release RxNorm: 421899 1 Tablet(s) PO daily 01/09/2016 04/02/2017 Inactive [SAVINGS FOR NON-COVERED DRUGS -- BIN:252943, PCN: ASPROD1, Group: XXXXX, ID# [id number], Questions: . THIS IS NOT INSURANCE.] ketoconazole 2 % topical cream RxNorm: 254053 1 Application TOP BID 01/09/2016 01/22/2016 Inactive triamcinolone acetonide 0.1 % topical cream RxNorm: 5379970 1 Application TOP BID 01/09/2016 01/22/2016 Inactive Nexium 40 mg capsule,delayed release RxNorm: 507428 1 Tablet(s) PO daily 01/09/2016 01/08/2016 Inactive [SAVINGS FOR NON-COVERED DRUGS -- BIN:248003, PCN: ASPROD1, Group: XXXXX, ID# [id number], Questions: . THIS IS NOT INSURANCE.] Diflucan 150 mg tablet RxNorm: 804756 1 Tablet(s) PO daily 05/201602/06/2016 Inactive daily x 7 days then weekly x 4 weeks clotrimazole 1 % topical cream RxNorm: 930117 1 Application TOP BID 12/09/2015 12/22/2015 Inactive hydroxyzine HCl 25 mg tablet RxNorm: 063931 1 Tablet(s) PO HS PRN 11/14/2015 06/13/2017 Inactive itching/insomnia Levaquin 500 mg tablet RxNorm: 366141 1 Tablet(s) PO daily 09/201611/23/2015 Inactive Vitamin D2 50,000 unit capsule RxNorm: 507363 1 Capsule(s) PO QW 11/05/2015 01/27/2016 Inactive one weekly for 12 weeks then 2000 units daily thereafter duloxetine 60 mg capsule,delayed release RxNorm: 404486 1 Capsule(s) PO daily 11/04/2015 01/25/2016 Inactive [SAVINGS FOR UNINSURED PATIENTS -- BIN:275321, PCN: ASPROD1, Group: [id number], ID# [id number], Process claim through [employer], for questions: . THIS IS NOT INSURANCE.] Levaquin 500 mg tablet RxNorm: 823081 1 Tablet(s) PO daily hold diflucan while on the ABX then resume diflucan once completed 11/03/2015 11/09/2015 Inactive Levaquin 500 mg tablet RxNorm: 908853 1 Tablet(s) PO daily 10/201511/02/2015 Inactive nystatin 100,000 unit/gram topical powder RxNorm: 397908 1 Application TOP QID apply to breast tissue, and abdominal folds 10/31/2015 12/29/2015 Inactive dispense quantity sufficient Diflucan 150 mg tablet RxNorm: 983990 1 Tablet(s) PO daily 11/13/2015 Inactive daily x 10 days then weekly x 4 weeks Diflucan 150 mg tablet RxNorm: 970237 1 Tablet(s) PO every other day 10/08/2015 11/18/2015 Inactive [SAVINGS FOR UNINSURED PATIENTS -- BIN:622943, PCN: ASPROD1, Group: [id number], ID# [id number], Process claim through [employer], for questions: . THIS IS NOT INSURANCE.] nystatin 100,000 unit/gram topical powder RxNorm: 254762 1 Application TOP QID apply to breast tissue, and abdominal folds 07/28/2015 08/24/2015 Inactive dispense quantity sufficient mupirocin 2 % topical ointment RxNorm: 913232 1 Application TOP TID apply under breast tissue and abdominal folds 07/24/2015 03/01/2016 Inactive dispense qs x 14 days nystatin 100,000 unit/gram topical powder RxNorm: 892623 1 Application TOP QID apply to breast tissue, and abdominal folds 07/24/2015 07/27/2015 Inactive dispense quantity sufficient pravastatin 20 mg tablet RxNorm: 318742 1 Tablet(s) PO daily 03/01/2016 Inactive [SAVINGS FOR UNINSURED PATIENTS -- BIN:583595, PCN: ASPROD1, Group: [id number] , ID# [id number], Process claim through [employer], for questions: . THIS IS NOT INSURANCE.] Nexium 40 mg capsule,delayed release RxNorm: 675157 TAKE ONE CAPSULE BY MOUTH ONCE DAILY 12/30/2014 06/27/2015 Inactive Nexium 40 mg capsule,delayed release RxNorm: 111944 1 Tablet(s) PO daily 12/30/2014 01/08/2016 Inactive [SAVINGS FOR NON-COVERED DRUGS -- BIN:114794, PCN: ASPROD1, Group: XXXXX, ID# [id number], Questions: . THIS IS NOT INSURANCE.] prednisone 20 mg tablet RxNorm: 902138 3 Tablet(s) PO daily 09/201512/16/2014 Inactive [SAVINGS FOR NON-COVERED DRUGS -- BIN:423494, PCN: ASPROD1, Group: XXXXX, ID# [id number], Questions: . THIS IS NOT INSURANCE.] Kenalog 40 mg/mL suspension for injection RxNorm: 0399356 Milliliter(s) Inj 12/12/2014 12/12/2014 Inactive [SAVINGS FOR NON-COVERED DRUGS -- BIN:927164, PCN: ASPROD1, Group: XXXXX, ID# [id number], Questions: . THIS IS NOT INSURANCE.] pravastatin 10 mg tablet RxNorm: 163181 1 Tablet(s) PO daily 11/17/2014 Inactive pravastatin 10 mg tablet RxNorm: 179163 1 Tablet(s) PO daily 11/17/2014 Inactive [SAVINGS FOR UNINSURED PATIENTS -- BIN:434129, PCN: ASPROD1, Group: [id number] , ID# [id number], Process claim through [employer], for questions: . THIS IS NOT INSURANCE.] pravastatin 10 mg tablet RxNorm: 400129 1 Tablet(s) PO daily 06/15/2015 Inactive pravastatin 10 mg tablet RxNorm: 290561 1 Tablet(s) PO daily 03/02/2015 Inactive [SAVINGS FOR UNINSURED PATIENTS -- BIN:672821, PCN: ASPROD1, Group: [id number] , ID# [id number], Process claim through [employer], for questions: . THIS IS NOT INSURANCE.] duloxetine 60 mg capsule,delayed release RxNorm: 091053 1 Capsule(s) PO daily 11/11/2014 06/08/2015 Inactive [SAVINGS FOR UNINSURED PATIENTS -- BIN:796456, PCN: ASPROD1, Group: [id number], ID# [id number], Process claim through [employer], for questions: . THIS IS NOT INSURANCE.] Brisdelle 7.5 mg capsule RxNorm: 2488708 1 Capsule(s) PO daily 11/11/2014 01/09/2015 Inactive [SAVINGS FOR UNINSURED PATIENTS -- BIN:995303, PCN: ASPROD1, Group: AME08, ID# [id number], Process claim through [employer], for questions: . THIS IS NOT INSURANCE.] Diflucan 150 mg tablet RxNorm: 316539 1 Tablet(s) PO every other day 11/11/2014 12/22/2014 Inactive [SAVINGS FOR UNINSURED PATIENTS -- BIN:928682, PCN: ASPROD1, Group: [id number], ID# [id number], Process claim through [employer], for questions: [phone]. THIS IS NOT INSURANCE.] nystatin 100,000 unit/gram topical powder RxNorm: 569624 1 Application TOP QID apply to breast tissue, and abdominal folds 07/15/2014 07/28/2014 Inactive dispense quantity sufficient Diflucan 150 mg tablet RxNorm: 202848 1 Tablet(s) PO daily 10/201307/07/2014 Inactive mupirocin 2 % topical ointment RxNorm: 464315 1 Application TOP TID apply under breast tissue and abdominal folds 05/17/2014 06/13/2014 Inactive dispense qs x 14 days gemfibrozil 600 mg tablet RxNorm: 404847 1 Tablet(s) PO BID 08/201412/10/2013 Inactive gemfibrozil 600 mg tablet RxNorm: 817200 1 Tablet(s) PO BID 08/201403/02/2015 Inactive Medrol ([place]armine) 4 mg tablets in a dose pack RxNorm: 733916 Tablet(s) PO as directed 12/05/2013 06/03/2014 Inactive Ultram 50 mg tablet RxNorm: 434725 1 Tablet(s) PO Q6 PRN 12/0502/18/2016 Inactive nystatin 100,000 unit/gram topical powder RxNorm: 354887 1 Application TOP QID apply to breast tissue, and abdominal folds 12/04/2013 07/02/2014 Inactive dispense quantity sufficient Nexium 40 mg capsule,delayed release RxNorm: 495336 1 Tablet(s) PO daily 12/04/2013 12/29/2014 Inactive Kenalog 40 mg/mL suspension for injection RxNorm: 8619669 Milliliter(s) Inj 12/04/2013 12/04/2013 Inactive mupirocin 2 % topical ointment RxNorm: 702138 1 Application TOP TID apply under breast tissue and abdominal folds 12/04/2013 12/17/2013 Inactive dispense qs x 14 days Cymbalta 60 mg capsule,delayed release RxNorm: 133456 1 Capsule(s) PO daily 12/04/2013 11/10/2014 Inactive Diflucan 150 mg tablet RxNorm: 054886 1 Tablet(s) PO daily 11/28/2013 Inactive Cymbalta 60 mg capsule,delayed release RxNorm: 970312 1 Capsule(s) PO daily 11/13/2013 12/03/2013 Inactive Diflucan 150 mg tablet RxNorm: 902309 1 Tablet(s) PO daily 08/201411/19/2013 Inactive nystatin 100,000 unit/gram topical powder RxNorm: 658412 1 Gram(s) TOP BID 11/13/2013 11/22/2013 Inactive Vitamin D2 50,000 unit capsule RxNorm: 543742 1 Capsule(s) PO QW 07/03/2013 No Stop Date Active one weekly for 12 weeks then 2000 units daily thereafter sucralfate 100 mg/mL Oral Susp RxNorm: 013114 10 Milliliter(s) PO QID 07/02/2013 10/29/2013 Inactive estradiol 0.5 mg tablet RxNorm: 269768 1 Tablet(s) PO daily 07/02/2014 Inactive promethazine 25 mg/mL Injection RxNorm: 661771 Milliliter(s) Inj 07/02/2013 07/02/2013 Inactive Kenalog 40 mg/mL Susp for Injection RxNorm: 6972582 Milliliter(s) Inj 06/18/2013 06/18/2013 Inactive clindamycin 300 mg capsule RxNorm: 146639 1 Capsule(s) PO TID 06/18/2013 06/24/2013 Inactive meloxicam 7.5 mg tablet RxNorm: 132448 1 Tablet(s) PO daily 07/01/2013 Inactive Cymbalta 60 mg capsule,delayed release RxNorm: 494937 1 Capsule(s) PO daily 05/07/2013 11/02/2013 Inactive Nexium 40 mg capsule,delayed release RxNorm: 021368 1 Tablet(s) PO daily 02/15/2013 09/12/2013 Inactive Vitamin D2 50,000 unit capsule RxNorm: 245921 1 Capsule(s) PO QW 12/07/2012 03/06/2013 Inactive one weekly for 12 weeks then 2000 units daily thereafter Vitamin D2 50,000 unit capsule RxNorm: 842681 1 Capsule(s) PO QW 12/07/2012 12/06/2012 Inactive one weekly for 12 weeks then 2000 units daily thereafter pantoprazole 40 mg tablet,delayed release RxNorm: 602867 1 Tablet(s) PO QPM 11/30/2012 02/14/2013 Inactive sucralfate 100 mg/mL Oral Susp RxNorm: 538843 10 Milliliter(s) PO QID 10 ML by mouth before meals and before bed 11/30/2012 02/15/2013 Inactive multivitamin tablet RxNorm: 1 Tablet(s) PO daily No Start Date Active jonny [place] 3 Krill Oil RxNorm: 1 PO BID No Start Date Active Xanax 0.5 mg tablet RxNorm: 019101 1/2 to 1 Tablet(s) PO Q6 PRN No Start Date 03/01/2016 Inactive Cymbalta 60 mg capsule,delayed release RxNorm: 128277 1 Capsule(s) PO daily No Start Date 05/06/2013 Inactive betamethasone dipropionate 0.05 % topical ointment RxNorm: 563667 1 Application TOP BID in between gentamycin applications No Start Date 03/14/2016 Inactive Aleve 220 mg tablet RxNorm: 188274 2 Tablet(s) PO daily No Start Date 03/21/2016 Inactive Vitamin B-12 1,000 mcg tablet RxNorm: 628845 1 Tablet(s) PO daily No Start Date 10/17/2017 Inactive Vitamin D3 2,000 unit capsule RxNorm: 929990 1 Capsule(s) PO daily No Start Date 12/12/2013 Inactive omeprazole 20 mg capsule,delayed release RxNorm: 908223 1 Capsule(s) PO daily No Start Date 11/30/2012 Inactive Ultram 50 mg tablet RxNorm: 286517 1 Tablet(s) PO Q6 PRN No Start Date 12/04/2013 Inactive folic acid oral RxNorm : oral No Start Date 03/21/2016 Inactive Vitamin D3 5,000 unit tablet RxNorm: 129672 1 Tablet(s) PO daily No Start Date 03/21/2016 Inactive Calcium 500 + D (D3) 500 mg-125 unit tablet RxNorm: 284937 1 Tablet(s) PO daily No Start Date 03/21/2016 Inactive Medrol (Carmine) 4 mg tablets in a dose pack RxNorm: 972802 Tablet(s) PO as doctor directed No Start Date 12/04/2013 Inactive Medication Administered Medication Codes Instructions Start Date Status Kenalog 40 mg/mL suspension for injection RxNorm: 3378773 Milliliter 04/13/2016 No longer Active Kenalog 40 mg/mL suspension for injection RxNorm: 3068197 [facility] 12/12/2014 No longer Active Kenalog 40 mg/mL suspension for injection RxNorm: 1389066 [facility] 12/04/2013 No longer Active promethazine 25 mg/mL Injection RxNorm: 645124 [facility] 07/02/2013 No longer Active Kenalog 40 mg/mL Susp for Injection RxNorm: 4314783 [facility] 06/18/2013 No longer Active Immunizations Vaccine Codes Date Status Influenza CVX: 141 07/03/2014 completed Influenza CVX: 141 10/02/2012 completed Assessments Condition Codes Effective Dates Generalized anxiety disorder ICD-10: F41.1 ICD-9: 300.00 10/18/2017 Periapical abscess without sinus ICD-10: K04.7 ICD-9: 522.4 10/18/2017 Major depressive disorder, single episode, moderate ICD-10: F32.1 ICD-9: 296.22 10/18/2017 Other psoriasis ICD-10: L40.8 ICD-9: 696.1 10/18/2017 Gastro-esophageal reflux disease without esophagitis ICD-10 : K21.9 ICD-9: 530.81 08/31/2017 Major depressive disorder, single episode, unspecified ICD- 10: F32.9 ICD-9: 311 06/14/2017 Other pruritus ICD-10: L29.8 ICD-9: 698.8 06/14/2017 Generalized abdominal pain ICD-10: R10.84 ICD-9: 789.07 05/13/2017 Nausea ICD-10: R11.0 ICD-9: 787.02 05/13/2017 Infectious gastroenteritis and colitis, unspecified ICD-10: A09 ICD-9: 009.0 05/13/2017 Vitamin D deficiency, unspecified ICD-10: E55.9 ICD-9: 268.9 01/13/2017 Vitamin B12 deficiency anemia, unspecified ICD-10: D51.9 ICD-9: 266.2 01/13/2017 Other fatigue ICD-10: R53.83 ICD-9: 780.79 01/13/2017 Primary generalized (osteo)arthritis ICD-10: M15.0 ICD-9: 715.09 06/10/2016 Other chronic pain ICD-10: G89.29 ICD-9: 338.29 06/10/2016 Pain in left hand ICD-10: M79.642 ICD-9: 729.5 04/13/2016 Muscle weakness (generalized) ICD-10: M62.81 ICD-9: 780.79 04/13/2016 Pain in right hand ICD-10: M79.641 ICD-9: 729.5 04/13/2016 Cellulitis of chest wall ICD-10: L03.313 ICD-9: 682.2 03/22/2016 Pain in right wrist ICD-10: M25.531 ICD-9: 719.43 03/02/2016 Tinea corporis ICD-10: B35.4 ICD-9: 110.5 02/23/2016 Rash and other nonspecific skin eruption ICD-10: R21 ICD-9: 782.1 11/14/2015 Mixed hyperlipidemia ICD-10: E78.2 ICD-9: 272.4 10/31/2015 Biceps tendonitis ICD-9: 726.12 2014 CAROTID ART OCC W/O INFARC ICD-9: 433.10 11/11/2014 Tinea corporis ICD-9: 110.5 11/11/2014 HYPERLIPIDEMIA ICD-9: 272.4 11/11/2014 Sleep-disordered breathing ICD-9: 780.59 07/03/2014 Diaphoresis ICD-9: 780.8 07/03/2014 VACCIN FOR INFLUENZA ICD-10: Z23 ICD-9: V04.81 07/03/2014 Fatigue ICD-9: 780.79 07/03/2014 Sciatica ICD-9: 724.3 12/04/2013 VITAMIN D DEFICIENCY ICD-9: 268.9 2013 OTHER ABNORMAL GLUCOSE ICD-9: 790.29 01/2014 DEPRESSIVE DISORDER NEC ICD-9: 311 2013 B12 DEFIC ANEMIA NEC ICD-9: 281.1 2013 Rash ICD-9: 782.1 12/04/2013 Post menopausal syndrome ICD-9: V49.81 ESOPHAGEAL REFLUX ICD-9: 530.81 2012 IDIO PERIPH NEURPTHY ICD-9: 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 2012 Nausea ICD-9: 787.02 07/02/2013 Abdominal pain ICD-9: 789.00 07/02/2013 Hot flashes not due to menopause ICD-9: 782.62 07/02/2013 Acute oral pain ICD-9: 528.9 06/18/2013 Acute back pain ICD-9: 724.5 06/18/2013 Chills ICD-9: 780.64 06/18/2013 Vitamin B12 deficiency ICD-9: 266.2 02/15 Elevated blood pressure ICD-9: 796.2 Benign essential tremor ICD-9: 333.1 01/2013 Insomnia ICD-9: 780.52 12/05/2012 Drug therapy ICD-9: V58.69 12/05/2012 Routine physicl lab exam ICD-9: V72.62 Arthritis ICD-9: 716.90 12/05/2012 Reason For Visit Reason For Visit Effective Dates Notes anxiety 10/18/2017 medication follow up 08/31/2017 medication follow up 06/21/2017 fatigue 06/14/2017 abdominal pain 05/13/2017 psoriasis 11/30/2016 psoriasis 11/16/2016 joint complaint 06/10/2016 joint complaint 04/13/2016 pain wrist pain 03/22/2016 wrist pain 03/02/2016 wrist pain 02/23/2016 rash 01/09/2016 Hospital Follow Up 12/09/2015 rash 11/14/2015 rash 10/31/2015 Hospital Follow Up 12/12/2014 rash 11/11/2014 excessive sweating diaphoresis 07/03/2014 under breasts and abd fold rash 12/04/2013 rash 11/13/2013 medication follow up 07/16/2013 back pain 07/02/2013 back pain 06/18/2013 fatigue 02/15/2013 hyperlipidemia 12/15/2012 fatigue 11/30/2012 Results Observation Observation Code Item Item Code Result Date Vitamin D 25 Oh Sif1937 VITAMIN D, 25 HYDROXY 34.42 ng/mL B12 Cgs677 B12 562.00 pg/ml 01/13/2017 Cbc With Differential Ord2 WBC 8.06 K/ul 01/13/2017 Cbc With Differential Ord2 RBC 4.68 M/ul 01/13/2017 Cbc With Differential Ord2 HGB 14.9 g/dl 01/13/2017 Cbc With Differential Ord2 HCT 44.4 % 01/13/2017 Cbc With Differential Ord2 Neut% 54.2 % 01/13/2017 Cbc With Differential Ord2 Lymph% 36.7 % 01/13/2017 Cbc With Differential Ord2 MCV 94.9 fl 01/13/2017 Cbc With Differential Ord2 [place]% 6.7 % 01/13/2017 Cbc With Differential Ord2 MCH 31.8 pg 01/13/2017 Cbc With Differential Ord2 MCHC 33.6 pg 01/13/2017 Cbc With Differential Ord2 Eos% 1.9 % 01/13/2017 Cbc With Differential Ord2 PLT 271 K/ul 01/13/2017 Cbc With Differential Ord2 Baso% 0.5 % 01/13/2017 Cbc With Differential Ord2 Neut ABS# 4.37 K/ul 01/13/2017 Cbc With Differential Ord2 RDW 13.3 % 01/13/2017 Cbc With Differential Ord2 Lymph ABS# 2.96 K/ul 01/13/2017 Cbc With Differential Ord2 [place] ABS# 0.5 K/ul 01/13/2017 Cbc With Differential Ord2 Eos ABS# 0.2 K/ul 01/13/2017 Cbc With Differential Ord2 Baso ABS# 0.0 K/ul 01/13/2017 Elle Reflex Profile [id number] ELLE (ARVIND) SCREEN NONE DETECTED 04/17/2016 Comp Metabolic Igt756 NA 138 mEq/L 04/13/2016 Comp Metabolic Luy051 K 3.7 mEq/L 04/13/2016 Comp Metabolic Ztr899 CL 104 mEq/L 04/13/2016 Comp Metabolic Eaj875 CO2 25.0 mEq/L 04/13/2016 Comp Metabolic Sxn643 ANION GAP 13 04/13/2016 Comp Metabolic Kvw660 GLUCOSE 146 mg/dL 04/13/2016 Comp Metabolic Lrx518 Creat 0.9 mg/dL 04/13/2016 Comp Metabolic Jzs604 eGFR 69 ml/min/1.73m2 04/13/2016 Comp Metabolic Vpw914 BUN 14 mg/dL 04/13/2016 Comp Metabolic Uam749 B/C Ratio 16.5 Ratio 04/13/2016 Comp Metabolic Pxi584 CALCIUM 9.5 mg/dL 04/13/2016 Comp Metabolic Nzv592 ALK PHOS 107 U/L 04/13/2016 Comp Metabolic Dzy651 AST(SGOT) 16 U/L 04/13/2016 Comp Metabolic Lqv493 ALT(SGPT) 17 U/L 04/13/2016 Comp Metabolic Otf807 BILI T 0.2 mg/dL 04/13/2016 Comp Metabolic Xip775 ALBUMIN 4.0 g/dL 04/13/2016 Comp Metabolic Vej319 TPRO 6.6 g/dL 04/13/2016 Comp Metabolic Mbn879 GLOB 2.6 g/dL 04/13/2016 Comp Metabolic Bim434 A/G Ratio 1.5 Ratio 04/13/2016 Comp Metabolic Mlt164 Osmo 279 mOsmo 04/13/2016 Sed Rate Ord21 ESR 36 mm/hr 04/13/2016 C-Reactive Protein Qnt Crqnt CRP 1.3 mg/dl 04/13/2016 Uric Acid Ord77 Uric A 6.7 mg/dL 04/13/2016 Ra Factor Ynf677 RA FACTOR <10 IU/ml 04/13/2016 Cbc With Differential Ord2 WBC 9.07 K/ul 04/13/2016 Cbc With Differential Ord2 RBC 4.38 M/ul 04/13/2016 Cbc With Differential Ord2 HGB 13.5 g/dl 04/13/2016 Cbc With Differential Ord2 Neut% 49.1 % 04/13/2016 Cbc With Differential Ord2 HCT 40.0 % 04/13/2016 Cbc With Differential Ord2 MCV 91.3 fl 04/13/2016 Cbc With Differential Ord2 Lymph% 42.6 % 04/13/2016 Cbc With Differential Ord2 MCH 30.8 pg 04/13/2016 Cbc With Differential Ord2 [place]% 6.7 % 04/13/2016 Cbc With Differential Ord2 MCHC 33.8 pg 04/13/2016 Cbc With Differential Ord2 Eos% 1.3 % 04/13/2016 Cbc With Differential Ord2 PLT 270 K/ul 04/13/2016 Cbc With Differential Ord2 Baso% 0.3 % 04/13/2016 Cbc With Differential Ord2 RDW 13.7 % 04/13/2016 Cbc With Differential Ord2 Neut ABS# 4.45 K/ul 04/13/2016 Cbc With Differential Ord2 Lymph ABS# 3.86 K/ul 04/13/2016 Cbc With Differential Ord2 [place] ABS# 0.6 K/ul 04/13/2016 Cbc With Differential Ord2 Eos ABS# 0.1 K/ul 04/13/2016 Cbc With Differential Ord2 Baso ABS# 0.0 K/ul 04/13/2016 Vitamin D 25 Oh [id number] VITAMIN D, 25 HYDROXY 49.37 ng/mL Sed Rate Ord21 ESR 37 mm/hr 02/24/2016 C-Reactive Protein Qnt Crqnt CRP 1.8 mg/dl 02/24/2016 Cbc With Differential Ord2 WBC 10.59 K/ul 02/24/2016 Cbc With Differential Ord2 RBC 5.13 M/ul 02/24/2016 Cbc With Differential Ord2 HGB 15.6 g/dl 02/24/2016 Cbc With Differential Ord2 HCT 47.2 % 02/24/2016 Cbc With Differential Ord2 Neut% 48.7 % 02/24/2016 Cbc With Differential Ord2 Lymph% 42.8 % 02/24/2016 Cbc With Differential Ord2 MCV 92.0 fl 02/24/2016 Cbc With Differential Ord2 MCH 30.4 pg 02/24/2016 Cbc With Differential Ord2 [place]% 6.8 % 02/24/2016 Cbc With Differential Ord2 MCHC 33.1 pg 02/24/2016 Cbc With Differential Ord2 Eos% 1.4 % 02/24/2016 Cbc With Differential Ord2 Baso% 0.3 % 02/24/2016 Cbc With Differential Ord2 PLT 361 K/ul 02/24/2016 Cbc With Differential Ord2 Neut ABS# 5.16 K/ul 02/24/2016 Cbc With Differential Ord2 RDW 13.6 % 02/24/2016 Cbc With Differential Ord2 Lymph ABS# 4.53 K/ul 02/24/2016 Cbc With Differential Ord2 [place] ABS# 0.7 K/ul 02/24/2016 Cbc With Differential Ord2 Eos ABS# 0.2 K/ul 02/24/2016 Cbc With Differential Ord2 Baso ABS# 0.0 K/ul 02/24/2016 Comp Metabolic Wxp815 NA 136 mEq/L 02/24/2016 Comp Metabolic Ryi635 K 4.2 mEq/L 02/24/2016 Comp Metabolic Idz250 CL 98 mEq/L 02/24/2016 Comp Metabolic Nje832 CO2 30.0 mEq/L 02/24/2016 Comp Metabolic Qjs065 ANION GAP 12 02/24/2016 Comp Metabolic Dux011 GLUCOSE 115 mg/dL 02/24/2016 Comp Metabolic Haq683 Creat 0.9 mg/dL 02/24/2016 Comp Metabolic Clb913 eGFR 67 ml/min/1.73m2 02/24/2016 Comp Metabolic Qwe589 BUN 22 mg/dL 02/24/2016 Comp Metabolic Zet401 B/C Ratio 25.3 Ratio 02/24/2016 Comp Metabolic Mfp120 CALCIUM 9.8 mg/dL 02/24/2016 Comp Metabolic Uye230 ALK PHOS 124 U/L 02/24/2016 Comp Metabolic Ola404 AST(SGOT) 19 U/L 02/24/2016 Comp Metabolic Zdl642 ALT(SGPT) 18 U/L 02/24/2016 Comp Metabolic Syq465 BILI T 0.4 mg/dL 02/24/2016 Comp Metabolic Xir984 ALBUMIN 4.6 g/dL 02/24/2016 Comp Metabolic Myg448 TPRO 7.8 g/dL 02/24/2016 Comp Metabolic Flz949 GLOB 3.3 g/dL 02/24/2016 Comp Metabolic Vyb019 A/G Ratio 1.4 Ratio 02/24/2016 Comp Metabolic Mcp742 Osmo 276 mOsmo 02/24/2016 Tsh Ord6 hTSH II 4.37 uIU/mL 10/31/2015 B12 Cst173 B12 327.00 pg/ml 10/31/2015 Cbc With Differential Ord2 WBC 7.04 K/ul 10/31/2015 Cbc With Differential Ord2 RBC 4.76 M/ul 10/31/2015 Cbc With Differential Ord2 HGB 14.9 g/dl 10/31/2015 Cbc With Differential Ord2 Neut% 41.7 % 10/31/2015 Cbc With Differential Ord2 HCT 43.4 % 10/31/2015 Cbc With Differential Ord2 MCV 91.2 fl 10/31/2015 Cbc With Differential Ord2 Lymph% 48.4 % 10/31/2015 Cbc With Differential Ord2 [place]% 7.2 % 10/31/2015 Cbc With Differential Ord2 MCH 31.3 pg 10/31/2015 Cbc With Differential Ord2 Eos% 2.1 % 10/31/2015 Cbc With Differential Ord2 MCHC 34.3 pg 10/31/2015 Cbc With Differential Ord2 PLT 263 K/ul 10/31/2015 Cbc With Differential Ord2 Baso% 0.6 % 10/31/2015 Cbc With Differential Ord2 RDW 13.4 % 10/31/2015 Cbc With Differential Ord2 Neut ABS# 2.93 K/ul 10/31/2015 Cbc With Differential Ord2 Lymph ABS# 3.41 K/ul 10/31/2015 Cbc With Differential Ord2 [place] ABS# 0.5 K/ul 10/31/2015 Cbc With Differential Ord2 Eos ABS# 0.2 K/ul 10/31/2015 Cbc With Differential Ord2 Baso ABS# 0.0 K/ul 10/31/2015 Cbc With Differential Ord2 New Analyzer Notice Please note new ref ranges starting 10-15-2015 due to implemntation of new five part differential hematolgy analyzer. 10/31/2015 Vitamin D 25 Oh [id number] VITAMIN D, 25 HYDROXY 33.87 ng/mL Lipid Ord30 CHOL 168 mg/dL 10/31/2015 Lipid Ord30 HDL 30.0 mg/dl 10/31/2015 Lipid Ord30 TRIG 293 mg/dL 10/31/2015 Lipid Ord30 LDL 79 mg/dL 10/31/2015 Lipid Ord30 C/HDL 5.6 Ratio 10/31/2015 Comp Metabolic Mye498 NA 140 mEq/L 10/31/2015 Comp Metabolic Xsx355 K 4.0 mEq/L 10/31/2015 Comp Metabolic Lnj292 CL 103 mEq/L 10/31/2015 Comp Metabolic Wfs002 CO2 29.0 mEq/L 10/31/2015 Comp Metabolic Eew527 ANION GAP 12 10/31/2015 Comp Metabolic Ydv054 GLUCOSE 104 mg/dL 10/31/2015 Comp Metabolic Avl798 Creat 0.9 mg/dL 10/31/2015 Comp Metabolic Yem571 eGFR 62 ml/min/1.73m2 10/31/2015 Comp Metabolic Yax048 BUN 13 mg/dL 10/31/2015 Comp Metabolic Bbu906 B/C Ratio 13.8 Ratio 10/31/2015 Comp Metabolic Kki424 CALCIUM 9.5 mg/dL 10/31/2015 Comp Metabolic Eeo629 ALK PHOS 102 U/L 10/31/2015 Comp Metabolic Fku534 AST(SGOT) 19 U/L 10/31/2015 Comp Metabolic Gqm762 ALT(SGPT) 17 U/L 10/31/2015 Comp Metabolic Qww470 BILI T 0.3 mg/dL 10/31/2015 Comp Metabolic Awk389 ALBUMIN 4.1 g/dL 10/31/2015 Comp Metabolic Mke131 TPRO 6.8 g/dL 10/31/2015 Comp Metabolic Hsd595 GLOB 2.7 g/dL 10/31/2015 Comp Metabolic Rze105 A/G Ratio 1.5 Ratio 10/31/2015 Comp Metabolic Gat983 Osmo 280 mOsmo 10/31/2015 CHEM 14 6486836 AST 19 U/L 02/28/2015 CHEM 14 6173234 ALT 15 IU/L 02/28/2015 CHEM 14 7195049 BUN 16 MG/DL 02/28/2015 CHEM 14 5874528 ALBUMIN 4.7 GM/DL 02/28/2015 CHEM 14 6149061 CHLORIDE 99 MMOL/L 02/28/2015 CHEM 14 9385243 BILI TOT 0.5 MG/DL 02/28/2015 CHEM 14 3531914 ALK PHOS 111 U/L 02/28/2015 CHEM 14 8931280 SODIUM 135 MMOL/L 02/28/2015 CHEM 14 3025459 CREATININE 1.10 MG/DL 02/28/2015 CHEM 14 1274257 CALCIUM 10.1 MG/DL 02/28/2015 CHEM 14 0829203 POTASSIUM 4.0 MMOL/L 02/28/2015 CHEM 14 3031294 PROT TOT 8.2 GM/DL 02/28/2015 CHEM 14 5379388 GLUCOSE 123 MG/DL 02/28/2015 CHEM 14 9940567 BICARB 29 MMOL/L 02/28/2015 CHEM 14 9093985 ANION GAP 7 MEQ/L 02/28/2015 LIPID GRP HDL TEST 38 MG/DL 02/28/2015 LIPID GRP TRIG 312 MG/DL 02/28/2015 LIPID GRP TEST LDL 148 MG/DL 02/28/2015 LIPID GRP CHOL 248 MG/DL 02/28/2015 LIPID GRP RCHOL/HDL 6.53 RATIO 02/28/2015 LIPID GRP NON-HDL CH 210 MG/DL 02/28/2015 GFR CALC 0568026 GFR AA 59.0L ML/MIN 02/28/2015 GFR CALC 4562173 GFR NON-AA 49.0L ML/MIN 02/28/2015 GFR CALC 9213478 GFR AA >60 ML/MIN 11/11/2014 GFR CALC 4884890 GFR NON-AA 55.0L ML/MIN 11/11/2014 CHEM 14 4918604 AST 20 U/L 11/11/2014 CHEM 14 3104197 ALT 14 IU/L 11/11/2014 CHEM 14 6092990 BUN 13 MG/DL 11/11/2014 CHEM 14 4166104 ALBUMIN 4.4 GM/DL 11/11/2014 CHEM 14 4869033 CHLORIDE 104 MMOL/L 11/11/2014 CHEM 14 0874721 BILI TOT 0.3 MG/DL 11/11/2014 CHEM 14 0602434 ALK PHOS 113 U/L 11/11/2014 CHEM 14 7753439 SODIUM 140 MMOL/L 11/11/2014 CHEM 14 3868811 CREATININE 0.98 MG/DL 11/11/2014 CHEM 14 5247816 CALCIUM 9.6 MG/DL 11/11/2014 CHEM 14 9393179 POTASSIUM 3.9 MMOL/L 11/11/2014 CHEM 14 2078919 PROT TOT 7.5 GM/DL 11/11/2014 CHEM 14 5297847 GLUCOSE 102 MG/DL 11/11/2014 CHEM 14 2859497 BICARB 28 MMOL/L 11/11/2014 CHEM 14 3702801 ANION GAP 8 MEQ/L 11/11/2014 CBC 8436345 WBC 6.6 10e9/L 11/11/2014 CBC 9678541 RBC 4.89 10e12/L 11/11/2014 CBC 5452774 HGB 15.2 g/dL 11/11/2014 CBC 8978304 HCT DET 45.2 % 11/11/2014 CBC 4346905 MCV 92.4 fL 11/11/2014 CBC 9668975 MCH 31.1 pg 11/11/2014 CBC 2847440 MCHC 33.6 g/dL 11/11/2014 CBC 3130067 PLT 275 10e9/L 11/11/2014 CBC 0516906 MPV 10.1 fL 11/11/2014 CBC 4051030 RC % 43.7 % 11/11/2014 CBC 4204536 LY % 46.5 % 11/11/2014 CBC 9253796 MON % 7.2 % 11/11/2014 CBC 4315450 EOS % 2.0 % 11/11/2014 CBC 6344532 BASO % 0.6 % 11/11/2014 CBC 2587635 RDW 13.3 % 11/11/2014 CBC 8842402 ABS RC 2.88 10e9/L 11/11/2014 CBC 9095256 ABS LYMPH 3.07 10e9/L 11/11/2014 CBC 4560893 ABS MONO 0.48 10e9/L 11/11/2014 CBC 7568576 ABS EOS 0.13 10e9/L 11/11/2014 CBC 4566717 ABS BASO 0.04 10e9/L 11/11/2014 CBC 9497458 RDW-SD 44.1 fL 11/11/2014 LIPID GRP HDL TEST 34 MG/DL 11/11/2014 LIPID GRP TRIG 173 MG/DL 11/11/2014 LIPID GRP TEST LDL 140 MG/DL 11/11/2014 LIPID GRP CHOL 209 MG/DL 11/11/2014 LIPID GRP RCHOL/HDL 6.15 RATIO 11/11/2014 LIPID GRP NON-HDL CH 175 MG/DL 11/11/2014 TSH 4677510 TSH 2.055 uIU/ML 11/11/2014 TSH 7361667 TSH 2.956 uIU/ML 12/04/2013 VIT D TOTL 8686182 VIT D TOTL 29 NG/ML 12/04/2013 LIPID GRP HDL TEST 33 MG/DL 12/04/2013 LIPID GRP TRIG 291 MG/DL 12/04/2013 LIPID GRP TEST LDL 124 MG/DL 12/04/2013 LIPID GRP CHOL 215 MG/DL 12/04/2013 LIPID GRP RCHOL/HDL 6.52 RATIO 12/04/2013 GFR CALC 3259397 GFR AA >60 ML/MIN 12/04/2013 GFR CALC 2315285 GFR NON-AA 57.0L ML/MIN 12/04/2013 CBC 0429817 WBC 7.2 10e9/L 12/04/2013 CBC 4719382 RBC 4.98 10e12/L 12/04/2013 CBC 5931479 HGB 15.8 g/dL 12/04/2013 CBC 1182586 HCT DET 46.0 % 12/04/2013 CBC 1725310 MCV 92.4 fL 12/04/2013 CBC 0573102 MCH 31.7 pg 12/04/2013 CBC 7669452 MCHC 34.3 g/dL 12/04/2013 CBC 1141699 PLT 266 10e9/L 12/04/2013 CBC 3879771 MPV 9.9 fL 12/04/2013 CBC 6492524 RC % 49.1 % 12/04/2013 CBC 0232425 LY % 41.9 % 12/04/2013 CBC 7471425 MON % 6.5 % 12/04/2013 CBC 0006670 EOS % 1.8 % 12/04/2013 CBC 6748353 BASO % 0.7 % 12/04/2013 CBC 2716880 RDW 13.3 % 12/04/2013 CBC 0514379 ABS RC 3.54 10e9/L 12/04/2013 CBC 8631802 ABS LYMPH 3.02 10e9/L 12/04/2013 CBC 0097722 ABS MONO 0.47 10e9/L 12/04/2013 CBC 7763414 ABS EOS 0.13 10e9/L 12/04/2013 CBC 8087472 ABS BASO 0.05 10e9/L 12/04/2013 CBC 4925278 RDW-SD 44.0 fL 12/04/2013 CHEM 14 2426421 AST 20 U/L 12/04/2013 CHEM 14 8883241 ALT 18 IU/L 12/04/2013 CHEM 14 5258507 BUN 13 MG/DL 12/04/2013 CHEM 14 3903527 ALBUMIN 4.5 GM/DL 12/04/2013 CHEM 14 4302882 CHLORIDE 104 MMOL/L 12/04/2013 CHEM 14 2502516 BILI TOT 0.3 MG/DL 12/04/2013 CHEM 14 0146125 ALK PHOS 92 U/L 12/04/2013 CHEM 14 9704117 SODIUM 140 MMOL/L 12/04/2013 CHEM 14 4693192 CREATININE 0.96 MG/DL 12/04/2013 CHEM 14 3498757 CALCIUM 9.8 MG/DL 12/04/2013 CHEM 14 1234386 POTASSIUM 4.2 MMOL/L 12/04/2013 CHEM 14 2588317 PROT TOT 7.1 GM/DL 12/04/2013 CHEM 14 3883313 GLUCOSE 111 MG/DL 12/04/2013 CHEM 14 7537514 BICARB 27 MMOL/L 12/04/2013 CHEM 14 1017996 ANION GAP 9 MEQ/L 12/04/2013 A1C HPLC 3719155 A1C HPLC 76496-7 5.4 % 12/04/2013 VIT B 12 8696484 VIT B 12 672 PG/ML 07/02/2013 GFR CALC 5853711 GFR AA >60 ML/MIN 07/02/2013 GFR CALC 4287325 GFR NON-AA 54.0L ML/MIN 07/02/2013 TSH 6492316 TSH 1.599 uIU/ML 07/02/2013 FREE T4 4365576 FREE T4 1.09 NG/DL 07/02/2013 CBC 6961627 WBC 11.1 10e9/L 07/02/2013 CBC 4024156 RBC 5.08 10e12/L 07/02/2013 CBC 6391034 HGB 16.1 g/dL 07/02/2013 CBC 8372451 HCT DET 46.6 % 07/02/2013 CBC 3081694 MCV 91.7 fL 07/02/2013 CBC 8899481 MCH 31.7 pg 07/02/2013 CBC 5103745 MCHC 34.5 g/dL 07/02/2013 CBC 6065181 PLT 287 10e9/L 07/02/2013 CBC 3755605 MPV 9.6 fL 07/02/2013 CBC 1187802 RC % 56.1 % 07/02/2013 CBC 5596173 LY % 35.3 % 07/02/2013 CBC 8539848 MON % 7.1 % 07/02/2013 CBC 4292269 EOS % 1.2 % 07/02/2013 CBC 8680961 BASO % 0.3 % 07/02/2013 CBC 1639851 RDW 14.1 % 07/02/2013 CBC 9242640 ABS RC 6.23 10e9/L 07/02/2013 CBC 5412668 ABS LYMPH 3.92 10e9/L 07/02/2013 CBC 2825656 ABS MONO 0.79 10e9/L 07/02/2013 CBC 0144560 ABS EOS 0.13 10e9/L 07/02/2013 CBC 5336441 ABS BASO 0.03 10e9/L 07/02/2013 CBC 1276248 RDW-SD 46.1 fL 07/02/2013 VIT D TOTL 8597513 VIT D TOTL 29 NG/ML 07/02/2013 CHEM 14 6395353 AST 19 U/L 07/02/2013 CHEM 14 9513956 ALT 20 IU/L 07/02/2013 CHEM 14 8342831 BUN 17 MG/DL 07/02/2013 CHEM 14 5835687 ALBUMIN 4.9 GM/DL 07/02/2013 CHEM 14 3750859 CHLORIDE 103 MMOL/L 07/02/2013 CHEM 14 8427707 BILI TOT 0.3 MG/DL 07/02/2013 CHEM 14 8122221 ALK PHOS 108 U/L 07/02/2013 CHEM 14 0841493 SODIUM 139 MMOL/L 07/02/2013 CHEM 14 5901042 CREATININE 1.01 MG/DL 07/02/2013 CHEM 14 7573557 CALCIUM 10.1 MG/DL 07/02/2013 CHEM 14 9114593 POTASSIUM 4.2 MMOL/L 07/02/2013 CHEM 14 0929723 PROT TOT 7.5 GM/DL 07/02/2013 CHEM 14 4317346 GLUCOSE 94 MG/DL 07/02/2013 CHEM 14 0826803 BICARB 29 MMOL/L 07/02/2013 CHEM 14 9691929 ANION GAP 7 MEQ/L 07/02/2013 A1C HPLC 5939090 A1C HPLC 88824-4 5.9 % 12/06/2012 CBC 2461400 WBC 8.0 10e9/L 12/05/2012 CBC 7293500 RBC 4.83 10e12/L 12/05/2012 CBC 8458064 HGB 15.1 g/dL 12/05/2012 CBC 0731691 HCT DET 44.0 % 12/05/2012 CBC 2429240 MCV 91.1 fL 12/05/2012 CBC 9262482 MCH 31.3 pg 12/05/2012 CBC 8836708 MCHC 34.3 g/dL 12/05/2012 CBC 3892382 PLT 260 10e9/L 12/05/2012 CBC 4018260 MPV 10.0 fL 12/05/2012 CBC 7406174 RC % 41.9 % 12/05/2012 CBC 9678615 LY % 48.1 % 12/05/2012 CBC 1322522 MON % 7.6 % 12/05/2012 CBC 6773121 EOS % 1.9 % 12/05/2012 CBC 1524247 BASO % 0.5 % 12/05/2012 CBC 5821158 RDW 13.4 % 12/05/2012 CBC 3047701 ABS RC 3.35 10e9/L 12/05/2012 CBC 4434144 ABS LYMPH 3.85 10e9/L 12/05/2012 CBC 4849104 ABS MONO 0.61 10e9/L 12/05/2012 CBC 5245352 ABS EOS 0.15 10e9/L 12/05/2012 CBC 0131843 ABS BASO 0.04 10e9/L 12/05/2012 CBC 5054175 RDW-SD 43.4 fL 12/05/2012 FERRITIN 3642693 FERRITIN 151 NG/ML 12/05/2012 CRP 5054357 CRP 0.6 MG/DL 12/05/2012 FOLIC ACID 4331662 FOLIC ACID 12.2 NG/ML 12/05/2012 VIT B 12 0278819 VIT B 12 389 PG/ML 12/05/2012 GFR CALC 4144473 GFR AA >60 ML/MIN 12/05/2012 GFR CALC 7668166 GFR NON-AA 57.0L ML/MIN 12/05/2012 LIPID GRP HDL TEST 28 MG/DL 12/05/2012 LIPID GRP TRIG 237 MG/DL 12/05/2012 LIPID GRP TEST LDL 98 MG/DL 12/05/2012 LIPID GRP CHOL 173 MG/DL 12/05/2012 LIPID GRP RCHOL/HDL 6.18 RATIO 12/05/2012 VIT D TOTL 3679002 VIT D TOTL 16 NG/ML 12/05/2012 CHEM 14 2734526 AST 21 U/L 12/05/2012 CHEM 14 7143772 ALT 24 IU/L 12/05/2012 CHEM 14 8674967 BUN 14 MG/DL 12/05/2012 CHEM 14 3961327 ALBUMIN 4.3 GM/DL 12/05/2012 CHEM 14 3262838 CHLORIDE 106 MMOL/L 12/05/2012 CHEM 14 8219703 BILI TOT 0.4 MG/DL 12/05/2012 CHEM 14 1175957 ALK PHOS 102 U/L 12/05/2012 CHEM 14 [id number] SODIUM 141 MMOL/L 12/05/2012 CHEM 14 [id number] CREATININE 0.96 MG/DL 12/05/2012 CHEM 14 2679316 CALCIUM 9.8 MG/DL 12/05/2012 CHEM 14 2158596 POTASSIUM 4.1 MMOL/L 12/05/2012 CHEM 14 9174974 PROT TOT 6.8 GM/DL 12/05/2012 CHEM 14 8281885 GLUCOSE 107 MG/DL 12/05/2012 CHEM 14 [id number] BICARB 28 MMOL/L 12/05/2012 CHEM 14 [id number] ANION GAP 7 MEQ/L 12/05/2012 TSH 8138525 TSH 3.097 uIU/ML 12/05/2012 %SAT/TIBC 7799743 TIBC 305 UG/DL 12/05/2012 %SAT/TIBC 9530375 % SATURAT 25 % 12/05/2012 %SAT/TIBC 8745039 UIBC 229 MCG/DL 12/05/2012 ESR 0142439 ESR 14 MM/HR 12/05/2012 IRON TEST [id number] IRON TEST 76 UG/DL 12/05/2012 MAGNESIUM [id number] MAGNESIUM 1.6 MEQ/L 12/05/2012 UA 96775 Specific [place] 1.030 DateTime(Free Text in ) UA 86640 PH 5.0 DateTime(Free Text in ) UA 53604 GLUCOSE neg DateTime(Free Text in ) UA 89877 Protein neg DateTime(Free Text in ) UA 69508 Blood neg DateTime(Free Text in ) UA 36997 Bilirubin neg DateTime(Free Text in ) UA 84003 Ketones neg DateTime(Free Text in ) UA 49187 Urobilinogen neg DateTime(Free Text in ) UA 25764 Nitrite neg DateTime(Free Text in ) UA 02281 Leukocytes trace DateTime(Free Text in ) Review of Systems System Result Effective Dates Constitutional No recent illness 2017 Constitutional No diaphoresis 10/18/2017 Constitutional No chills 10/18/2017 Constitutional No fever 10/18/2017 Eyes No eye erythema 10/18/2017 Ears/Nose/Throat/Neck No nasal allergies 10/18/2017 Ears/Nose/Throat/Neck No nasal discharge 10/18/2017 Ears/Nose/Throat/Neck oral pain 2017 Cardiovascular No chest pain/pressure Cardiovascular No dyspnea 10/18/2017 Respiratory No cough 10/18/2017 Respiratory No chest congestion 2017 Gastrointestinal No constipation 2017 Gastrointestinal No diarrhea 10/18/2017 Gastrointestinal No abdominal pain 2017 Dermatologic rash 10/18/2017 Neurologic No alteration of consciousness 10/18/2017 Neurologic No mental status change 2017 Psychiatric depression 10/18/2017 Psychiatric anxiety 10/18/2017 Constitutional No recent illness 2016 Constitutional No chills 08/31/2017 Constitutional No diaphoresis 08/31/2017 Constitutional No fever 08/31/2017 Eyes No eye erythema 08/31/2017 Ears/Nose/Throat/Neck No nasal discharge 08/31/2017 Ears/Nose/Throat/Neck nasal allergies Cardiovascular No chest pain/pressure Cardiovascular No dyspnea 08/31/2017 Respiratory No cough 08/31/2017 Respiratory No chest congestion 2016 Gastrointestinal No constipation 2016 Gastrointestinal No diarrhea 08/31/2017 Gastrointestinal gastroesophageal reflux 08/31/2017 Gastrointestinal No vomiting 08/31/2017 Dermatologic rash 08/31/2017 Neurologic No alteration of consciousness 08/31/2017 Neurologic No mental status change 2016 Psychiatric anxiety 08/31/2017 Psychiatric depression 08/31/2017 Constitutional No recent illness 2016 Constitutional No chills 06/21/2017 Constitutional No diaphoresis 06/21/2017 Constitutional fatigue 06/21/2017 Constitutional No fever 06/21/2017 Constitutional malaise 06/21/2017 Eyes No eye erythema 06/21/2017 Ears/Nose/Throat/Neck No nasal allergies 06/21/2017 Ears/Nose/Throat/Neck No nasal discharge 06/21/2017 Cardiovascular No chest pain/pressure Cardiovascular No dyspnea 06/21/2017 Respiratory No cough 06/21/2017 Respiratory No dyspnea 06/21/2017 Gastrointestinal No abdominal pain 2016 Musculoskeletal No joint complaint 2016 Dermatologic rash 06/21/2017 Neurologic No alteration of consciousness 06/21/2017 Neurologic No mental status change 2016 Psychiatric anxiety 06/21/2017 Psychiatric depression 06/21/2017 Constitutional No recent illness 2016 Constitutional No chills 06/14/2017 Constitutional No diaphoresis 06/14/2017 Constitutional No fever 06/14/2017 Constitutional fatigue 06/14/2017 Constitutional malaise 06/14/2017 Eyes No eye erythema 06/14/2017 Ears/Nose/Throat/Neck No nasal discharge 06/14/2017 Ears/Nose/Throat/Neck No nasal allergies 06/14/2017 Cardiovascular No chest pain/pressure 09/2017 Cardiovascular No dyspnea 06/14/2017 Respiratory No cough 06/14/2017 Respiratory No dyspnea 06/14/2017 Gastrointestinal No abdominal pain 2016 Musculoskeletal No joint complaint 2016 Dermatologic rash 06/14/2017 Neurologic No alteration of consciousness 06/14/2017 Neurologic No mental status change 2016 Psychiatric depression 06/14/2017 Psychiatric anxiety 06/14/2017 Constitutional recent illness 05/13/2017 Constitutional anorexia 05/13/2017 Constitutional No night sweats 2016 Constitutional No chills 05/13/2017 Constitutional No diaphoresis 05/13/2017 Constitutional fatigue 05/13/2017 Constitutional No fever 05/13/2017 Constitutional No insomnia 05/13/2017 Constitutional No malaise 05/13/2017 Constitutional No weight loss 05/13/2017 Constitutional No weight gain 05/13/2017 Eyes No eye discharge 05/13/2017 Eyes No eye erythema 05/13/2017 Ears/Nose/Throat/Neck No dizziness 2016 Cardiovascular No chest pain/pressure 08/2017 Respiratory No cough 05/13/2017 Gastrointestinal abdominal pain 2016 Gastrointestinal No constipation 2016 Gastrointestinal No diarrhea 05/13/2017 Gastrointestinal nausea 05/13/2017 Gastrointestinal vomiting 05/13/2017 Genitourinary/Nephrology No dysuria 05/13 Musculoskeletal No joint complaint 2016 Dermatologic No rash 05/13/2017 Neurologic No alteration of consciousness 05/13/2017 Constitutional No recent illness 2016 Constitutional No fever 11/30/2016 Eyes No eye erythema 11/30/2016 Ears/Nose/Throat/Neck No nasal allergies 11/30/2016 Ears/Nose/Throat/Neck No nasal discharge 11/30/2016 Cardiovascular No chest pain/pressure Cardiovascular No dyspnea 11/30/2016 Respiratory No cough 11/30/2016 Respiratory No dyspnea 11/30/2016 Gastrointestinal No abdominal pain 2016 Dermatologic rash 11/30/2016 Neurologic No alteration of consciousness 11/30/2016 Neurologic No mental status change 2016 Constitutional No recent illness 2016 Constitutional No fever 11/16/2016 Eyes No eye erythema 11/16/2016 Ears/Nose/Throat/Neck No nasal allergies 11/16/2016 Ears/Nose/Throat/Neck No nasal discharge 11/16/2016 Cardiovascular No chest pain/pressure Cardiovascular No dyspnea 11/16/2016 Respiratory No cough 11/16/2016 Respiratory No dyspnea 11/16/2016 Gastrointestinal No abdominal pain 2016 Dermatologic rash 11/16/2016 Neurologic No alteration of consciousness 11/16/2016 Neurologic No mental status change 2016 Constitutional No recent illness 2015 Constitutional No anorexia 06/10/2016 Constitutional No night sweats 2015 Constitutional No chills 06/10/2016 Constitutional No diaphoresis 06/10/2016 Constitutional fatigue 06/10/2016 Constitutional No fever 06/10/2016 Constitutional insomnia 06/10/2016 Constitutional No malaise 06/10/2016 Constitutional No weight loss 06/10/2016 Constitutional No weight gain 06/10/2016 Eyes No eye discharge 06/10/2016 Eyes No eye erythema 06/10/2016 Ears/Nose/Throat/Neck dizziness 2015 Ears/Nose/Throat/Neck No headache 2015 Cardiovascular No chest pain/pressure 05/2016 Cardiovascular No dyspnea 06/10/2016 Cardiovascular No edema 06/10/2016 Respiratory No productive sputum 2015 Respiratory No cough 06/10/2016 Gastrointestinal No abdominal pain 2015 Gastrointestinal No constipation 2015 Gastrointestinal No diarrhea 06/10/2016 Genitourinary/Nephrology No dysuria 06/10 Musculoskeletal joint complaint 2015 Musculoskeletal muscle weakness 2015 Musculoskeletal myalgias 06/10/2016 Dermatologic No rash 06/10/2016 Neurologic No alteration of consciousness 06/10/2016 Psychiatric depression 06/10/2016 Constitutional No recent illness 2015 Constitutional No anorexia 04/13/2016 Constitutional No night sweats 2015 Constitutional No chills 04/13/2016 Constitutional No diaphoresis 04/13/2016 Constitutional No fever 04/13/2016 Constitutional fatigue 04/13/2016 Constitutional insomnia 04/13/2016 Constitutional No malaise 04/13/2016 Constitutional No weight loss 04/13/2016 Constitutional No weight gain 04/13/2016 Eyes No eye discharge 04/13/2016 Eyes No eye erythema 04/13/2016 Ears/Nose/Throat/Neck dizziness 2015 Ears/Nose/Throat/Neck No headache 2015 Cardiovascular No chest pain/pressure 09/2016 Cardiovascular No dyspnea 04/13/2016 Cardiovascular No edema 04/13/2016 Respiratory No productive sputum 2015 Respiratory No cough 04/13/2016 Gastrointestinal No abdominal pain 2015 Gastrointestinal No constipation 2015 Gastrointestinal No diarrhea 04/13/2016 Genitourinary/Nephrology No dysuria 04/13 Musculoskeletal joint complaint 2015 Musculoskeletal myalgias 04/13/2016 Musculoskeletal muscle weakness 2015 Dermatologic No rash 04/13/2016 Neurologic No alteration of consciousness 04/13/2016 Psychiatric depression 04/13/2016 Constitutional No recent illness 2015 Constitutional No chills 03/22/2016 Constitutional No diaphoresis 03/22/2016 Constitutional No fatigue 03/22/2016 Constitutional No fever 03/22/2016 Constitutional No insomnia 03/22/2016 Constitutional No malaise 03/22/2016 Eyes No blindness 03/22/2016 Ears/Nose/Throat/Neck No nasal allergies 03/22/2016 Ears/Nose/Throat/Neck No nasal discharge 03/22/2016 Cardiovascular No chest pain/pressure Cardiovascular No dyspnea 03/22/2016 Respiratory No chest congestion 2015 Respiratory No cough 03/22/2016 Respiratory No dyspnea on exertion 2015 Respiratory No dyspnea 03/22/2016 Gastrointestinal No abdominal pain 2015 Musculoskeletal joint complaint 2015 Musculoskeletal myalgias 03/22/2016 Dermatologic rash 03/22/2016 Neurologic No alteration of consciousness 03/22/2016 Neurologic No mental status change 2015 Psychiatric anxiety 03/22/2016 Psychiatric depression 03/22/2016 Constitutional No recent illness 2015 Constitutional No chills 03/02/2016 Constitutional No diaphoresis 03/02/2016 Constitutional No fatigue 03/02/2016 Constitutional No fever 03/02/2016 Constitutional No insomnia 03/02/2016 Constitutional No malaise 03/02/2016 Eyes No blindness 03/02/2016 Ears/Nose/Throat/Neck No nasal allergies 03/02/2016 Ears/Nose/Throat/Neck No nasal discharge 03/02/2016 Cardiovascular No chest pain/pressure Cardiovascular No dyspnea 03/02/2016 Respiratory No chest congestion 2015 Respiratory No cough 03/02/2016 Respiratory No dyspnea on exertion 2015 Respiratory No dyspnea 03/02/2016 Gastrointestinal No abdominal pain 2015 Musculoskeletal joint complaint 2015 Musculoskeletal myalgias 03/02/2016 Dermatologic rash 03/02/2016 Neurologic No alteration of consciousness 03/02/2016 Neurologic No mental status change 2015 Psychiatric anxiety 03/02/2016 Psychiatric depression 03/02/2016 Constitutional No chills 02/23/2016 Constitutional No diaphoresis 02/23/2016 Constitutional No fatigue 02/23/2016 Constitutional No fever 02/23/2016 Constitutional No insomnia 02/23/2016 Constitutional No malaise 02/23/2016 Cardiovascular No chest pain/pressure Cardiovascular No dyspnea 02/23/2016 Respiratory No chest congestion 2015 Respiratory No cough 02/23/2016 Respiratory No dyspnea on exertion 2015 Respiratory No dyspnea 02/23/2016 Musculoskeletal myalgias 02/23/2016 Constitutional No recent illness 2015 Eyes No eye erythema 02/23/2016 Ears/Nose/Throat/Neck No nasal allergies 02/23/2016 Ears/Nose/Throat/Neck No nasal discharge 02/23/2016 Gastrointestinal No abdominal pain 2015 Musculoskeletal joint complaint 2015 Dermatologic rash 02/23/2016 Neurologic No alteration of consciousness 02/23/2016 Neurologic No mental status change 2015 Psychiatric depression 02/23/2016 Psychiatric anxiety 02/23/2016 Constitutional No recent illness 2015 Constitutional No anorexia 01/09/2016 Constitutional No night sweats 2015 Constitutional No chills 01/09/2016 Constitutional No diaphoresis 01/09/2016 Constitutional No fatigue 01/09/2016 Constitutional No fever 01/09/2016 Constitutional No insomnia 01/09/2016 Constitutional No malaise 01/09/2016 Constitutional No weight loss 01/09/2016 Constitutional No weight gain 01/09/2016 Constitutional No obesity 01/09/2016 Dermatologic rash 01/09/2016 Dermatologic No sores 01/09/2016 Musculoskeletal joint complaint 2015 Musculoskeletal No muscle weakness 2015 Musculoskeletal myalgias 01/09/2016 Musculoskeletal swelling 01/09/2016 Respiratory No cough 01/09/2016 Respiratory No dyspnea on exertion 2015 Respiratory No dyspnea 01/09/2016 Respiratory No chest congestion 2015 Respiratory No cigarette smoking 2015 Respiratory No chest tightness 2015 Cardiovascular No chest pain/pressure 05/2016 Cardiovascular No dyspnea 01/09/2016 Constitutional No recent illness 2015 Constitutional No anorexia 12/09/2015 Constitutional No night sweats 2015 Constitutional No chills 12/09/2015 Constitutional No diaphoresis 12/09/2015 Constitutional No fatigue 12/09/2015 Constitutional No fever 12/09/2015 Constitutional No insomnia 12/09/2015 Constitutional No malaise 12/09/2015 Constitutional No weight loss 12/09/2015 Constitutional No weight gain 12/09/2015 Constitutional No obesity 12/09/2015 Ears/Nose/Throat/Neck No headache 2015 Ears/Nose/Throat/Neck No nasal allergies 12/09/2015 Ears/Nose/Throat/Neck No nasal discharge 12/09/2015 Ears/Nose/Throat/Neck No otalgia 2015 Ears/Nose/Throat/Neck No otitis media 05/2016 Ears/Nose/Throat/Neck No sinus congestion 12/09/2015 Ears/Nose/Throat/Neck No sore throat 05/2016 Cardiovascular No chest pain/pressure 05/2016 Respiratory No chest congestion 2015 Respiratory No chest tightness 2015 Respiratory No cigarette smoking 2015 Respiratory No cough 12/09/2015 Respiratory No dyspnea on exertion 2015 Respiratory No dyspnea 12/09/2015 Gastrointestinal No constipation 2015 Gastrointestinal diarrhea 12/09/2015 Genitourinary/Nephrology No dysuria 12/08 Musculoskeletal No bone pain 12/09/2015 Musculoskeletal No joint complaint 2015 Musculoskeletal No muscle weakness 2015 Musculoskeletal No myalgias 12/09/2015 Dermatologic rash 12/09/2015 Dermatologic No sores 12/09/2015 Psychiatric anxiety 12/09/2015 Psychiatric depression 12/09/2015 Gastrointestinal No abdominal pain 2015 Gastrointestinal nausea 12/09/2015 Gastrointestinal No vomiting 12/09/2015 Constitutional No recent illness 2015 Constitutional No anorexia 11/14/2015 Constitutional No night sweats 2015 Constitutional No chills 11/14/2015 Constitutional No diaphoresis 11/14/2015 Constitutional No fatigue 11/14/2015 Constitutional No fever 11/14/2015 Constitutional No insomnia 11/14/2015 Constitutional No malaise 11/14/2015 Constitutional No weight loss 11/14/2015 Constitutional No weight gain 11/14/2015 Constitutional No obesity 11/14/2015 Gastrointestinal No diarrhea 11/14/2015 Gastrointestinal No constipation 2015 Respiratory No cough 11/14/2015 Respiratory No cigarette smoking 2015 Respiratory No chest tightness 2015 Respiratory No chest congestion 2015 Respiratory No dyspnea 11/14/2015 Respiratory No dyspnea on exertion 2015 Cardiovascular No chest pain/pressure 09/2016 Dermatologic rash 11/14/2015 Dermatologic No sores 11/14/2015 Musculoskeletal No joint complaint 2015 Musculoskeletal No myalgias 11/14/2015 Musculoskeletal No muscle weakness 2015 Musculoskeletal No bone pain 11/14/2015 Genitourinary/Nephrology No dysuria 11/14 Ears/Nose/Throat/Neck No headache 2015 Ears/Nose/Throat/Neck No nasal allergies 11/14/2015 Ears/Nose/Throat/Neck No nasal discharge 11/14/2015 Ears/Nose/Throat/Neck No otalgia 2015 Ears/Nose/Throat/Neck No otitis media 09/2016 Ears/Nose/Throat/Neck No sore throat 09/2016 Ears/Nose/Throat/Neck No sinus congestion 11/14/2015 Dermatologic skin cancer 11/14/2015 Psychiatric anxiety 11/14/2015 Psychiatric depression 11/14/2015 Constitutional No anorexia 10/31/2015 Constitutional No recent illness 2015 Constitutional No night sweats 2015 Constitutional No chills 10/31/2015 Constitutional No diaphoresis 10/31/2015 Constitutional No fatigue 10/31/2015 Constitutional No fever 10/31/2015 Constitutional No insomnia 10/31/2015 Constitutional No malaise 10/31/2015 Constitutional No weight loss 10/31/2015 Constitutional No weight gain 10/31/2015 Eyes No eye discharge 10/31/2015 Eyes No eye erythema 10/31/2015 Dermatologic rash 10/31/2015 Dermatologic No sores 10/31/2015 Respiratory No productive sputum 2015 Respiratory No cough 10/31/2015 Gastrointestinal No hemorrhoids 2015 Gastrointestinal No constipation 2015 Genitourinary/Nephrology No dysuria 10/31 Psychiatric depression 10/31/2015 Constitutional No recent illness 2014 Constitutional No chills 12/12/2014 Constitutional No fatigue 12/12/2014 Constitutional No fever 12/12/2014 Constitutional No insomnia 12/12/2014 Constitutional No malaise 12/12/2014 Cardiovascular No chest pain/pressure 09/2015 Cardiovascular No dyspnea 12/12/2014 Cardiovascular No edema 12/12/2014 Cardiovascular No exercise intolerance Cardiovascular No fatigue 12/12/2014 Cardiovascular No near-syncope/dizziness 12/12/2014 Respiratory No chest tightness 2014 Respiratory No cigarette smoking 2014 Respiratory No cough 12/12/2014 Respiratory No dyspnea 12/12/2014 Respiratory No pedal edema 12/12/2014 Respiratory No snoring 12/12/2014 Respiratory No wheezing 12/12/2014 Gastrointestinal No hemorrhoids 2014 Gastrointestinal No abdominal pain 2014 Gastrointestinal No constipation 2014 Gastrointestinal No diarrhea 12/12/2014 Gastrointestinal No gastroesophageal reflux 12/12/2014 Gastrointestinal No melena 12/12/2014 Gastrointestinal No nausea 12/12/2014 Gastrointestinal No vomiting 12/12/2014 Genitourinary/Nephrology No dysuria 12/12 Genitourinary/Nephrology No nocturia 09/2015 Genitourinary/Nephrology No urinary incontinence 12/12/2014 Musculoskeletal No stiffness 12/12/2014 Musculoskeletal No swelling 12/12/2014 Musculoskeletal No back pain 12/12/2014 Musculoskeletal No muscle weakness 2014 Musculoskeletal myalgias 12/12/2014 Psychiatric No anxiety 12/12/2014 Psychiatric No depression 12/12/2014 Musculoskeletal shoulder pain 12/12/2014 Constitutional No recent illness 2014 Constitutional No chills 11/11/2014 Constitutional No fatigue 11/11/2014 Constitutional No fever 11/11/2014 Constitutional No insomnia 11/11/2014 Constitutional No malaise 11/11/2014 Cardiovascular No chest pain/pressure 06/2015 Cardiovascular No dyspnea 11/11/2014 Cardiovascular No edema 11/11/2014 Cardiovascular No exercise intolerance Cardiovascular No fatigue 11/11/2014 Cardiovascular No near-syncope/dizziness 11/11/2014 Respiratory No chest tightness 2014 Respiratory No cigarette smoking 2014 Respiratory No cough 11/11/2014 Respiratory No dyspnea 11/11/2014 Respiratory No pedal edema 11/11/2014 Respiratory No snoring 11/11/2014 Respiratory No wheezing 11/11/2014 Gastrointestinal No hemorrhoids 2014 Gastrointestinal No abdominal pain 2014 Gastrointestinal No constipation 2014 Gastrointestinal No diarrhea 11/11/2014 Gastrointestinal No gastroesophageal reflux 11/11/2014 Gastrointestinal No melena 11/11/2014 Gastrointestinal No nausea 11/11/2014 Gastrointestinal No vomiting 11/11/2014 Genitourinary/Nephrology No dysuria 11/11 Genitourinary/Nephrology No nocturia 06/2015 Genitourinary/Nephrology No urinary incontinence 11/11/2014 Musculoskeletal No stiffness 11/11/2014 Musculoskeletal No swelling 11/11/2014 Musculoskeletal No back pain 11/11/2014 Musculoskeletal No muscle weakness 2014 Musculoskeletal myalgias 11/11/2014 Dermatologic rash 11/11/2014 Psychiatric No anxiety 11/11/2014 Psychiatric No depression 11/11/2014 Eyes No blindness 11/11/2014 Eyes No vision change 11/11/2014 Ears/Nose/Throat/Neck No dental pain 06/2015 Ears/Nose/Throat/Neck No dizziness 2014 Ears/Nose/Throat/Neck No dysphagia 2014 Ears/Nose/Throat/Neck No headache 2014 Ears/Nose/Throat/Neck No hearing loss 06/2015 Ears/Nose/Throat/Neck No nasal allergies 11/11/2014 Ears/Nose/Throat/Neck No sore throat 06/2015 Ears/Nose/Throat/Neck No postnasal drip 11/11/2014 Ears/Nose/Throat/Neck No sinus congestion 11/11/2014 Neurologic No dizziness 11/11/2014 Neurologic No headache 11/11/2014 Neurologic No neck pain 11/11/2014 Neurologic No syncope 11/11/2014 Dermatologic sores 11/11/2014 Constitutional No recent illness 2013 Constitutional night sweats 07/03/2014 Constitutional diaphoresis 07/03/2014 Constitutional fatigue 07/03/2014 Constitutional No fever 07/03/2014 Constitutional malaise 07/03/2014 Constitutional weight gain 07/03/2014 Ears/Nose/Throat/Neck No dizziness 2013 Ears/Nose/Throat/Neck No facial weakness 07/03/2014 Ears/Nose/Throat/Neck No headache 2013 Cardiovascular No dyspnea 07/03/2014 Cardiovascular exercise intolerance 07/03 Cardiovascular fatigue 07/03/2014 Cardiovascular hypertension 07/03/2014 Respiratory No cough 07/03/2014 Respiratory No chest tightness 2013 Respiratory No chest congestion 2013 Respiratory No dyspnea on exertion 2013 Respiratory snoring 07/03/2014 Gastrointestinal No abdominal pain 2013 Dermatologic rash 07/03/2014 Dermatologic sores 07/03/2014 Psychiatric No anxiety 07/03/2014 Psychiatric depression 07/03/2014 Neurologic No headache 07/03/2014 Neurologic No dizziness 07/03/2014 Constitutional No recent illness 2013 Constitutional No chills 12/04/2013 Constitutional No fatigue 12/04/2013 Constitutional No fever 12/04/2013 Constitutional No insomnia 12/04/2013 Constitutional No malaise 12/04/2013 Cardiovascular No chest pain/pressure 01/2014 Cardiovascular No dyspnea 12/04/2013 Cardiovascular No edema 12/04/2013 Cardiovascular No exercise intolerance Cardiovascular No fatigue 12/04/2013 Cardiovascular No near-syncope/dizziness 12/04/2013 Respiratory No chest tightness 2013 Respiratory No cigarette smoking 2013 Respiratory No cough 12/04/2013 Respiratory No dyspnea 12/04/2013 Respiratory No pedal edema 12/04/2013 Respiratory No snoring 12/04/2013 Respiratory No wheezing 12/04/2013 Musculoskeletal No stiffness 12/04/2013 Musculoskeletal No swelling 12/04/2013 Musculoskeletal No muscle weakness 2013 Musculoskeletal myalgias 12/04/2013 Psychiatric No anxiety 12/04/2013 Psychiatric No depression 12/04/2013 Musculoskeletal No back pain 12/04/2013 Gastrointestinal No hemorrhoids 2013 Gastrointestinal No abdominal pain 2013 Gastrointestinal No constipation 2013 Gastrointestinal No diarrhea 12/04/2013 Gastrointestinal No gastroesophageal reflux 12/04/2013 Gastrointestinal No melena 12/04/2013 Gastrointestinal No nausea 12/04/2013 Gastrointestinal No vomiting 12/04/2013 Genitourinary/Nephrology No dysuria 12/04 Genitourinary/Nephrology No nocturia 01/2014 Genitourinary/Nephrology No urinary incontinence 12/04/2013 Dermatologic rash 12/04/2013 Constitutional No recent illness 2013 Constitutional No anorexia 11/13/2013 Constitutional No night sweats 2013 Constitutional No chills 11/13/2013 Constitutional No diaphoresis 11/13/2013 Constitutional No fatigue 11/13/2013 Constitutional No fever 11/13/2013 Constitutional No insomnia 11/13/2013 Constitutional No malaise 11/13/2013 Constitutional No weight loss 11/13/2013 Constitutional No weight gain 11/13/2013 Constitutional No recent illness 2012 Constitutional No chills 07/16/2013 Constitutional No fatigue 07/16/2013 Constitutional No fever 07/16/2013 Constitutional No insomnia 07/16/2013 Constitutional No malaise 07/16/2013 Cardiovascular No chest pain/pressure Cardiovascular No dyspnea 07/16/2013 Cardiovascular No edema 07/16/2013 Cardiovascular No exercise intolerance Cardiovascular No fatigue 07/16/2013 Cardiovascular No near-syncope/dizziness 07/16/2013 Respiratory No chest tightness 2012 Respiratory No cigarette smoking 2012 Respiratory No cough 07/16/2013 Respiratory No dyspnea 07/16/2013 Respiratory No pedal edema 07/16/2013 Respiratory No snoring 07/16/2013 Respiratory No wheezing 07/16/2013 Psychiatric No anxiety 07/16/2013 Psychiatric No depression 07/16/2013 Musculoskeletal No stiffness 07/16/2013 Musculoskeletal No swelling 07/16/2013 Musculoskeletal No muscle weakness 2012 Musculoskeletal No myalgias 07/16/2013 Constitutional No recent illness 2012 Constitutional No anorexia 07/02/2013 Constitutional No night sweats 2012 Constitutional No chills 07/02/2013 Constitutional No diaphoresis 07/02/2013 Constitutional fatigue 07/02/2013 Constitutional No fever 07/02/2013 Constitutional insomnia 07/02/2013 Constitutional No malaise 07/02/2013 Eyes No eye discharge 07/02/2013 Eyes No eye erythema 07/02/2013 Ears/Nose/Throat/Neck No dizziness 2012 Ears/Nose/Throat/Neck No headache 2012 Cardiovascular No chest pain/pressure Respiratory No cough 07/02/2013 Genitourinary/Nephrology No dysuria 07/02 Musculoskeletal No joint complaint 2012 Dermatologic No rash 07/02/2013 Dermatologic No sores 07/02/2013 Psychiatric anxiety 07/02/2013 Psychiatric depression 07/02/2013 Endocrine sweating 07/02/2013 Constitutional No recent illness 2012 Constitutional No anorexia 06/18/2013 Constitutional No night sweats 2012 Constitutional No chills 06/18/2013 Constitutional No diaphoresis 06/18/2013 Constitutional fatigue 06/18/2013 Constitutional No fever 06/18/2013 Constitutional insomnia 06/18/2013 Constitutional No malaise 06/18/2013 Eyes No eye discharge 06/18/2013 Eyes No eye erythema 06/18/2013 Cardiovascular No chest pain/pressure Respiratory No cough 06/18/2013 Genitourinary/Nephrology No dysuria 06/18 Dermatologic No rash 06/18/2013 Dermatologic No sores 06/18/2013 Psychiatric anxiety 06/18/2013 Psychiatric depression 06/18/2013 Ears/Nose/Throat/Neck dental pain 2012 Constitutional No recent illness 2012 Constitutional No anorexia 02/15/2013 Constitutional No night sweats 2012 Constitutional No chills 02/15/2013 Constitutional No diaphoresis 02/15/2013 Constitutional fatigue 02/15/2013 Constitutional No fever 02/15/2013 Constitutional insomnia 02/15/2013 Constitutional No malaise 02/15/2013 Eyes No eye discharge 02/15/2013 Eyes No eye erythema 02/15/2013 Ears/Nose/Throat/Neck No dizziness 2012 Ears/Nose/Throat/Neck No headache 2012 Cardiovascular No chest pain/pressure Respiratory No cough 02/15/2013 Genitourinary/Nephrology No dysuria 02/15 Musculoskeletal No joint complaint 2012 Dermatologic No rash 02/15/2013 Dermatologic No sores 02/15/2013 Psychiatric depression 02/15/2013 Psychiatric anxiety 02/15/2013 Constitutional No recent illness 2012 Constitutional No anorexia 12/15/2012 Constitutional No night sweats 2012 Constitutional No chills 12/15/2012 Constitutional No diaphoresis 12/15/2012 Constitutional fatigue 12/15/2012 Constitutional No fever 12/15/2012 Constitutional No insomnia 12/15/2012 Constitutional No malaise 12/15/2012 Eyes No eye discharge 12/15/2012 Eyes No eye erythema 12/15/2012 Ears/Nose/Throat/Neck No dizziness 2012 Ears/Nose/Throat/Neck No headache 2012 Cardiovascular No chest pain/pressure Respiratory No cough 12/15/2012 Gastrointestinal No vomiting 12/15/2012 Gastrointestinal No nausea 12/15/2012 Gastrointestinal No abdominal pain 2012 Gastrointestinal No constipation 2012 Gastrointestinal No diarrhea 12/15/2012 Genitourinary/Nephrology No dysuria 12/15 Musculoskeletal No joint complaint 2012 Dermatologic No sores 12/15/2012 Dermatologic No rash 12/15/2012 Genitourinary/Nephrology No dysuria 11/30 Musculoskeletal No joint complaint 2012 Dermatologic No rash 11/30/2012 Dermatologic No sores 11/30/2012 Constitutional No recent illness 2012 Constitutional No anorexia 11/30/2012 Constitutional No night sweats 2012 Constitutional No chills 11/30/2012 Constitutional No diaphoresis 11/30/2012 Constitutional fatigue 11/30/2012 Constitutional No fever 11/30/2012 Constitutional No insomnia 11/30/2012 Constitutional No malaise 11/30/2012 Eyes No eye discharge 11/30/2012 Eyes No eye erythema 11/30/2012 Ears/Nose/Throat/Neck No dizziness 2012 Ears/Nose/Throat/Neck No headache 2012 Cardiovascular No chest pain/pressure Respiratory No cough 11/30/2012 Gastrointestinal No abdominal pain 2012 Gastrointestinal No constipation 2012 Gastrointestinal No diarrhea 11/30/2012 Gastrointestinal No nausea 11/30/2012 Gastrointestinal No vomiting 11/30/2012 Physical Exam Exam Name System Name Item Name Status Result Effective Dates Notes Full Exam - General 1994 Constitutional general appearance Overall: well developed 10/18/2017 None Full Exam - General 1994 Constitutional general appearance Overall: in no acute distress 10/18/2017 None Full Exam - General 1994 Constitutional general appearance Overall: well nourished 10/18/2017 None Full Exam - General 1994 Eyes conjunctiva /eyelids Overall: conjunctiva clear 10/18/2017 None Full Exam - General 1994 Eyes conjunctiva /eyelids Overall: cornea clear 10/18/2017 None Full Exam - General 1994 Eyes conjunctiva /eyelids Overall: eyelids normal 10/18/2017 None Full Exam - General 1994 Eyes pupils and irises Overall: pupils equal, round, reactive to light and accomodation 10/18/2017 None Full Exam - General 1994 Ears/Nose/Throat lips/teeth/gingiva Overall: benign lips 10/18/2017 None Full Exam - General 1994 Ears/Nose/Throat lips/teeth/gingiva Teeth: broken teeth 10/18/2017 None Full Exam - General 1994 Ears/Nose/Throat lips/teeth/gingiva Teeth: partially edentulous 10/18/2017 None Full Exam - General 1994 Ears/Nose/Throat lips/teeth/gingiva Teeth: wears partial plate 10/18/2017 None Full Exam - General 1994 Ears/Nose/Throat oral cavity/pharynx/larynx Overall: oral mucosa clear 10/18/2017 None Full Exam - General 1994 Respiratory respiratory effort/rhythm Overall: no retractions 10/18/2017 None Full Exam - General 1994 Respiratory respiratory effort/rhythm Overall: normal rate 10/18/2017 None Full Exam - General 1994 Respiratory auscultation Overall: breath sounds clear bilaterally 10/18/2017 None Full Exam - General 1994 Cardiovascular auscultation of heart Overall: normal heart sounds 10/18/2017 None Full Exam - General 1994 Cardiovascular auscultation of heart Overall: regular rate 10/18/2017 None Full Exam - General 1994 Musculoskeletal head and neck Overall: head atraumatic 10/18/2017 None Full Exam - General 1994 Musculoskeletal gait and station Overall: normal station 10/18/2017 None Full Exam - General 1994 Musculoskeletal gait and station Overall: normal gait 10/18/2017 None Full Exam - General 1994 Neurologic cranial nerves Overall: crainial nerves 2 - 12 grossly intact 10/18/2017 None Full Exam - General 1994 Psychiatric orientation/consciousness Overall: oriented to person, place and time 10/18/2017 None Full Exam - General 1994 Psychiatric mood and affect Overall: normal mood and affect 10/18/2017 None Full Exam - General 1994 Psychiatric appearance Overall: well-groomed, good eye contact 10/18/2017 None Full Exam - General 1994 Constitutional general appearance Overall: well developed 08/31/2017 None Full Exam - General 1994 Constitutional general appearance Overall: well nourished 08/31/2017 None Full Exam - General 1994 Constitutional general appearance Evidence of Distress: mild distress 08/31/2017 None Full Exam - General 1994 Constitutional general appearance Evidence of Distress: anxious 08/31/2017 None Full Exam - General 1994 Constitutional general appearance Evidence of Distress: tearful 08/31/2017 None Full Exam - General 1994 Eyes conjunctiva /eyelids Overall: conjunctiva clear 08/31/2017 None Full Exam - General 1994 Eyes conjunctiva /eyelids Overall: cornea clear 08/31/2017 None Full Exam - General 1994 Eyes conjunctiva /eyelids Overall: eyelids normal 08/31/2017 None Full Exam - General 1994 Ears/Nose/Throat lips/teeth/gingiva Overall: benign lips 08/31/2017 None Full Exam - General 1994 Ears/Nose/Throat oral cavity/pharynx/larynx Overall: oral mucosa clear 08/31/2017 None Full Exam - General 1994 Respiratory respiratory effort/rhythm Overall: no retractions 08/31/2017 None Full Exam - General 1994 Respiratory respiratory effort/rhythm Overall: normal rate 08/31/2017 None Full Exam - General 1994 Respiratory auscultation Overall: breath sounds clear bilaterally 08/31/2017 None Full Exam - General 1994 Respiratory auscultation Diffuse: diminished 08/31/2017 None Full Exam - General 1994 Cardiovascular auscultation of heart Overall: regular rate 08/31/2017 None Full Exam - General 1994 Cardiovascular auscultation of heart Overall: normal heart sounds 08/31/2017 None Full Exam - General 1994 Musculoskeletal gait and station Overall: normal gait 08/31/2017 None Full Exam - General 1994 Musculoskeletal gait and station Overall: normal station 08/31/2017 None Full Exam - General 1994 Musculoskeletal head and neck Overall: head atraumatic 08/31/2017 None Full Exam - General 1994 Integument inspection of skin Location: right leg 08/31/2017 None Full Exam - General 1994 Integument inspection of skin Location: left leg 08/31/2017 None Full Exam - General 1994 Integument inspection of skin Location: right arm 08/31/2017 None Full Exam - General 1994 Integument inspection of skin Location: left arm 08/31/2017 None Full Exam - General 1994 Integument inspection of skin Dermatitis: scaling 08/31/2017 None Full Exam - General 1994 Integument inspection of skin Pigmentation: erythematous 08/31/2017 None Full Exam - General 1994 Integument inspection of skin Consistency: dry 08/31/2017 None Full Exam - General 1994 Neurologic cranial nerves Overall: crainial nerves 2 - 12 grossly intact 08/31/2017 None Full Exam - General 1994 Psychiatric orientation/consciousness Overall: oriented to person, place and time 08/31/2017 None Full Exam - General 1994 Psychiatric mood and affect Mood: flat 08/31/2017 None Full Exam - General 1994 Psychiatric mood and affect Mood: depressed 08/31/2017 None Full Exam - General 1994 Psychiatric mood and affect Mood: anxious 08/31/2017 None Full Exam - General 1994 Psychiatric mood and affect Affect: mood congruent 08/31/2017 None Full Exam - General 1994 Psychiatric appearance Overall: well-groomed, good eye contact 08/31/2017 None Full Exam - General 1994 Constitutional general appearance Overall: well developed 06/21/2017 None Full Exam - General 1994 Constitutional general appearance Overall: in no acute distress 06/21/2017 None Full Exam - General 1994 Constitutional general appearance Overall: well nourished 06/21/2017 None Full Exam - General 1994 Eyes conjunctiva /eyelids Overall: conjunctiva clear 06/21/2017 None Full Exam - General 1994 Eyes conjunctiva /eyelids Overall: eyelids normal 06/21/2017 None Full Exam - General 1994 Ears/Nose/Throat oral cavity/pharynx/larynx Overall: oral mucosa clear 06/21/2017 None Full Exam - General 1994 Respiratory auscultation Overall: breath sounds clear bilaterally 06/21/2017 None Full Exam - General 1994 Respiratory respiratory effort/rhythm Overall: no retractions 06/21/2017 None Full Exam - General 1994 Respiratory respiratory effort/rhythm Overall: normal rate 06/21/2017 None Full Exam - General 1994 Cardiovascular auscultation of heart Overall: regular rate 06/21/2017 None Full Exam - General 1994 Cardiovascular auscultation of heart Overall: normal heart sounds 06/21/2017 None Full Exam - General 1994 Musculoskeletal gait and station Overall: normal gait 06/21/2017 None Full Exam - General 1994 Musculoskeletal gait and station Overall: normal station 06/21/2017 None Full Exam - General 1994 Musculoskeletal head and neck Overall: head atraumatic 06/21/2017 None Full Exam - General 1994 Integument inspection of skin Dermatitis: erythema 06/21/2017 None Full Exam - General 1994 Integument inspection of skin Dermatitis: scaling 06/21/2017 None Full Exam - General 1994 Integument inspection of skin Location: left leg 06/21/2017 None Full Exam - General 1994 Integument inspection of skin Location: right leg 06/21/2017 None Full Exam - General 1994 Neurologic cranial nerves Overall: crainial nerves 2 - 12 grossly intact 06/21/2017 None Full Exam - General 1994 Psychiatric orientation/consciousness Overall: oriented to person, place and time 06/21/2017 None Full Exam - General 1994 Psychiatric mood and affect Mood: depressed 06/21/2017 None Full Exam - General 1994 Psychiatric appearance Overall: well-groomed, good eye contact 06/21/2017 None Full Exam - General 1994 Constitutional general appearance Overall: well developed 06/14/2017 None Full Exam - General 1994 Constitutional general appearance Overall: in no acute distress 06/14/2017 None Full Exam - General 1994 Constitutional general appearance Overall: well nourished 06/14/2017 None Full Exam - General 1994 Eyes conjunctiva /eyelids Overall: conjunctiva clear 06/14/2017 None Full Exam - General 1994 Eyes conjunctiva /eyelids Overall: eyelids normal 06/14/2017 None Full Exam - General 1994 Ears/Nose/Throat oral cavity/pharynx/larynx Overall: oral mucosa clear 06/14/2017 None Full Exam - General 1994 Respiratory respiratory effort/rhythm Overall: no retractions 06/14/2017 None Full Exam - General 1994 Respiratory respiratory effort/rhythm Overall: normal rate 06/14/2017 None Full Exam - General 1994 Respiratory auscultation Overall: breath sounds clear bilaterally 06/14/2017 None Full Exam - General 1994 Cardiovascular auscultation of heart Overall: regular rate 06/14/2017 None Full Exam - General 1994 Cardiovascular auscultation of heart Overall: normal heart sounds 06/14/2017 None Full Exam - General 1994 Musculoskeletal gait and station Overall: normal gait 06/14/2017 None Full Exam - General 1994 Musculoskeletal gait and station Overall: normal station 06/14/2017 None Full Exam - General 1994 Musculoskeletal head and neck Overall: head atraumatic 06/14/2017 None Full Exam - General 1994 Integument inspection of skin Location: right leg 06/14/2017 None Full Exam - General 1994 Integument inspection of skin Location: left leg 06/14/2017 None Full Exam - General 1994 Integument inspection of skin Dermatitis: erythema 06/14/2017 None Full Exam - General 1994 Integument inspection of skin Dermatitis: scaling 06/14/2017 None Full Exam - General 1994 Neurologic cranial nerves Overall: crainial nerves 2 - 12 grossly intact 06/14/2017 None Full Exam - General 1994 Psychiatric orientation/consciousness Overall: oriented to person, place and time 06/14/2017 None Full Exam - General 1994 Psychiatric appearance Overall: well-groomed, good eye contact 06/14/2017 None Full Exam - General 1994 Psychiatric mood and affect Mood: depressed 06/14/2017 None Full Exam - General 1994 Constitutional general appearance Overall: well developed 05/13/2017 None Full Exam - General 1994 Constitutional general appearance Overall: well nourished 05/13/2017 None Full Exam - General 1994 Constitutional general appearance Evidence of Distress: in no acute distress 05/13/2017 None Full Exam - General 1994 Psychiatric orientation/consciousness Overall: oriented to person, place and time 05/13/2017 None Full Exam - General 1994 Lymphatic neck nodes Overall: posterior cervical chain benign 05/13/2017 None Full Exam - General 1994 Lymphatic neck nodes Overall: anterior cervical chain benign 05/13/2017 None Full Exam - General 1994 Ears/Nose/Throat otoscopic exam Overall: tympanic membranes clear 05/13/2017 None Full Exam - General 1994 Ears/Nose/Throat otoscopic exam Overall: external auditory canals clear 05/13/2017 None Full Exam - General 1994 Eyes conjunctiva /eyelids Overall: conjunctiva clear 05/13/2017 None Full Exam - General 1994 Eyes pupils and irises Overall: pupils equal, round, reactive to light and accomodation 05/13/2017 None Full Exam - General 1994 Respiratory auscultation Overall: breath sounds clear bilaterally 05/13/2017 None Full Exam - General 1994 Respiratory respiratory effort/rhythm Overall: no retractions 05/13/2017 None Full Exam - General 1994 Respiratory respiratory effort/rhythm Overall: normal rate 05/13/2017 None Full Exam - General 1994 Cardiovascular auscultation of heart Overall: no murmurs 05/13/2017 None Full Exam - General 1994 Cardiovascular auscultation of heart Overall: normal heart sounds 05/13/2017 None Full Exam - General 1994 Cardiovascular auscultation of heart Overall: regular rate 05/13/2017 None Full Exam - General 1994 Cardiovascular extremities Overall: no clubbing 05/13/2017 None Full Exam - General 1994 Abdomen abdominal exam Bowel sounds: hypoactive 05/13/2017 None Full Exam - General 1994 Abdomen abdominal exam Upper quadrant: tender to palpation 05/13/2017 None Full Exam - General 1994 Abdomen abdominal exam Lower quadrant: tender to palpation 05/13/2017 None Full Exam - General 1994 Abdomen abdominal exam Upper quadrant: rebound tenderness 05/13/2017 None Full Exam - Dermatology Constitutional general appearance Overall: well nourished 11/30/2016 None Full Exam - Dermatology Constitutional general appearance Overall: well developed 11/30/2016 None Full Exam - Dermatology Constitutional general appearance Overall: in no acute distress 11/30/2016 None Full Exam - Dermatology Eyes conjunctiva/ eyelids Overall: clear conjunctiva bilaterally 11/30/2016 None Full Exam - Dermatology Respiratory auscultation Overall: breath sounds clear bilaterally 11/30/2016 None Full Exam - Dermatology Respiratory respiratory effort/rhythm Overall: no retractions 11/30/2016 None Full Exam - Dermatology Respiratory respiratory effort/rhythm Overall: normal rate 11/30/2016 None Full Exam - Dermatology Integument insp & palp - abdomen Lesion: plaque 11/30/2016 None Full Exam - Dermatology Integument insp & palp - abdomen Location: on the lower abdomen 11/30/2016 None Full Exam - Dermatology Integument insp & palp - abdomen Color: erythematous 11/30/2016 None Full Exam - Dermatology Integument insp & palp - abdomen Appearance: scaly 11/30/2016 None Full Exam - Dermatology Integument insp & palp - back Lesion: plaque 11/30/2016 None Full Exam - Dermatology Integument insp & palp - back Location: on the mid back 11/30/2016 None Full Exam - Dermatology Integument insp & palp - back Location: on the lower back 11/30/2016 None Full Exam - Dermatology Integument insp & palp - back Color: erythematous 11/30/2016 None Full Exam - Dermatology Integument insp & palp - back Appearance: scaly 11/30/2016 None Full Exam - Dermatology Integument insp & palp - left upper extremity Lesion: plaque 11/30/2016 None Full Exam - Dermatology Integument insp & palp - left upper extremity Location: on the forearm 11/30/2016 None Full Exam - Dermatology Integument insp & palp - left upper extremity Color: erythematous 11/30/2016 None Full Exam - Dermatology Integument insp & palp - left upper extremity Appearance: scaly 11/30/2016 None Full Exam - Dermatology Integument insp & palp - right upper extremity Lesion: plaque 11/30/2016 None Full Exam - Dermatology Integument insp & palp - right upper extremity Location: on the forearm 11/30/2016 None Full Exam - Dermatology Integument insp & palp - right upper extremity Color: erythematous 11/30/2016 None Full Exam - Dermatology Integument insp & palp - right upper extremity Appearance: scaly 11/30/2016 None Full Exam - Dermatology Integument insp & palp - left lower extremity Lesion: plaque 11/30/2016 None Full Exam - Dermatology Integument insp & palp - left lower extremity Location: on the harris 11/30/2016 None Full Exam - Dermatology Integument insp & palp - left lower extremity Location: on the calf 11/30/2016 None Full Exam - Dermatology Integument insp & palp - left lower extremity Color: erythematous 11/30/2016 None Full Exam - Dermatology Integument insp & palp - left lower extremity Appearance: scaly 11/30/2016 None Full Exam - Dermatology Integument insp & palp - right lower extremity Lesion: plaque 11/30/2016 None Full Exam - Dermatology Integument insp & palp - right lower extremity Location: on the harris 11/30/2016 None Full Exam - Dermatology Integument insp & palp - right lower extremity Location: on the calf 11/30/2016 None Full Exam - Dermatology Integument insp & palp - right lower extremity Color: erythematous 11/30/2016 None Full Exam - Dermatology Integument insp & palp - right lower extremity Appearance: scaly 11/30/2016 None Full Exam - Dermatology Psychiatric orientation Overall: oriented to person, place and time 11/30/2016 None Full Exam - Dermatology Psychiatric mood and affect Overall: normal mood and affect 11/30/2016 None Full Exam - Dermatology Psychiatric mood and affect Mood: anxious 11/30/2016 None Full Exam - Dermatology Constitutional general appearance Overall: well nourished 11/16/2016 None Full Exam - Dermatology Constitutional general appearance Overall: well developed 11/16/2016 None Full Exam - Dermatology Constitutional general appearance Overall: in no acute distress 11/16/2016 None Full Exam - Dermatology Eyes conjunctiva/ eyelids Overall: clear conjunctiva bilaterally 11/16/2016 None Full Exam - Dermatology Ears/Nose/Throat lips/teeth/gingiva Overall: benign lips 11/16/2016 None Full Exam - Dermatology Respiratory respiratory effort/rhythm Overall: no retractions 11/16/2016 None Full Exam - Dermatology Respiratory respiratory effort/rhythm Overall: normal rate 11/16/2016 None Full Exam - Dermatology Respiratory auscultation Overall: breath sounds clear bilaterally 11/16/2016 None Full Exam - Dermatology Integument insp & palp - back Location: on the lower back 11/16/2016 None Full Exam - Dermatology Integument insp & palp - back Location: on the mid back 11/16/2016 None Full Exam - Dermatology Integument insp & palp - back Lesion: plaque 11/16/2016 None Full Exam - Dermatology Integument insp & palp - back Color: erythematous 11/16/2016 None Full Exam - Dermatology Integument insp & palp - back Appearance: scaly 11/16/2016 None Full Exam - Dermatology Integument insp & palp - left upper extremity Location: on the forearm 11/16/2016 None Full Exam - Dermatology Integument insp & palp - left upper extremity Color: erythematous 11/16/2016 None Full Exam - Dermatology Integument insp & palp - left upper extremity Lesion: plaque 11/16/2016 None Full Exam - Dermatology Integument insp & palp - left upper extremity Appearance: scaly 11/16/2016 None Full Exam - Dermatology Integument insp & palp - right upper extremity Location: on the forearm 11/16/2016 None Full Exam - Dermatology Integument insp & palp - right upper extremity Lesion: plaque 11/16/2016 None Full Exam - Dermatology Integument insp & palp - right upper extremity Color: erythematous 11/16/2016 None Full Exam - Dermatology Integument insp & palp - right upper extremity Appearance: scaly 11/16/2016 None Full Exam - Dermatology Integument insp & palp - abdomen Location: on the lower abdomen 11/16/2016 None Full Exam - Dermatology Integument insp & palp - abdomen Color: erythematous 11/16/2016 None Full Exam - Dermatology Integument insp & palp - abdomen Lesion: plaque 11/16/2016 None Full Exam - Dermatology Integument insp & palp - abdomen Appearance: scaly 11/16/2016 None Full Exam - Dermatology Integument insp & palp - left lower extremity Location: on the harris 11/16/2016 None Full Exam - Dermatology Integument insp & palp - left lower extremity Location: on the calf 11/16/2016 None Full Exam - Dermatology Integument insp & palp - left lower extremity Lesion: plaque 11/16/2016 None Full Exam - Dermatology Integument insp & palp - left lower extremity Color: erythematous 11/16/2016 None Full Exam - Dermatology Integument insp & palp - left lower extremity Appearance: scaly 11/16/2016 None Full Exam - Dermatology Integument insp & palp - right lower extremity Lesion: plaque 11/16/2016 None Full Exam - Dermatology Integument insp & palp - right lower extremity Location: on the calf 11/16/2016 None Full Exam - Dermatology Integument insp & palp - right lower extremity Location: on the [place]arris 11/16/2016 None Full Exam - Dermatology Integument insp & palp - right lower extremity Color: erythematous 11/16/2016 None Full Exam - Dermatology Integument insp & palp - right lower extremity Appearance: scaly 11/16/2016 None Full Exam - Dermatology Psychiatric orientation Overall: oriented to person, place and time 11/16/2016 None Full Exam - Dermatology Psychiatric mood and affect Overall: normal mood and affect 11/16/2016 None Full Exam - General 1994 Constitutional general appearance Development: well developed 06/10/2016 None Full Exam - General 1994 Constitutional general appearance Development: appears stated age 0906/10/2016 None Full Exam - General 1994 Constitutional general appearance Hygiene/Attention to Grooming: good hygiene 06/10/2016 None Full Exam - General 1994 Eyes conjunctiva /eyelids Overall: conjunctiva clear 06/10/2016 None Full Exam - General 1994 Eyes conjunctiva /eyelids Overall: cornea clear 06/10/2016 None Full Exam - General 1994 Eyes conjunctiva /eyelids Overall: eyelids normal 06/10/2016 None Full Exam - General 1994 Eyes pupils and irises Overall: pupils equal, round, reactive to light and accomodation 06/10/2016 None Full Exam - General 1994 Ears/Nose/Throat lips/teeth/gingiva Overall: benign lips 06/10/2016 None Full Exam - General 1994 Ears/Nose/Throat lips/teeth/gingiva Overall: normal dentition 06/10/2016 None Full Exam - General 1994 Respiratory respiratory effort/rhythm Overall: no retractions 06/10/2016 None Full Exam - General 1994 Respiratory respiratory effort/rhythm Overall: normal rate 06/10/2016 None Full Exam - General 1994 Cardiovascular extremities Overall: no clubbing 06/10/2016 None Full Exam - General 1994 Abdomen abdominal exam Overall: no tenderness 06/10/2016 None Full Exam - General 1994 Abdomen abdominal exam Overall: normal bowel sounds 06/10/2016 None Full Exam - General 1994 Musculoskeletal digits and nails MCPs: swelling 06/10/2016 None Full Exam - General 1994 Musculoskeletal upper extremity Palpation - wrist: tender 06/10/2016 None Full Exam - General 1994 Musculoskeletal upper extremity ROM - wrist: pain with flexion 06/10/2016 None Full Exam - General 1994 Neurologic cranial nerves Overall: crainial nerves 2 - 12 grossly intact 06/10/2016 None Full Exam - General 1994 Psychiatric orientation/consciousness Overall: oriented to person, place and time 06/10/2016 None Full Exam - General 1994 Psychiatric mood and affect Mood: depressed 06/10/2016 None Full Exam - General 1994 Psychiatric appearance Overall: well-groomed, good eye contact 06/10/2016 None Full Exam - General 1994 Musculoskeletal digits and nails MCPs: first 06/10/2016 None Full Exam - General 1994 Constitutional general appearance Development: well developed 04/13/2016 None Full Exam - General 1994 Constitutional general appearance Development: appears stated age 0704/13/2016 None Full Exam - General 1994 Constitutional general appearance Hygiene/Attention to Grooming: good hygiene 04/13/2016 None Full Exam - General 1994 Eyes conjunctiva /eyelids Overall: conjunctiva clear 04/13/2016 None Full Exam - General 1994 Eyes conjunctiva /eyelids Overall: cornea clear 04/13/2016 None Full Exam - General 1994 Eyes conjunctiva /eyelids Overall: eyelids normal 04/13/2016 None Full Exam - General 1994 Eyes pupils and irises Overall: pupils equal, round, reactive to light and accomodation 04/13/2016 None Full Exam - General 1994 Ears/Nose/Throat lips/teeth/gingiva Overall: benign lips 04/13/2016 None Full Exam - General 1994 Ears/Nose/Throat lips/teeth/gingiva Overall: normal dentition 04/13/2016 None Full Exam - General 1994 Respiratory respiratory effort/rhythm Overall: no retractions 04/13/2016 None Full Exam - General 1994 Respiratory respiratory effort/rhythm Overall: normal rate 04/13/2016 None Full Exam - General 1994 Cardiovascular extremities Overall: no clubbing 04/13/2016 None Full Exam - General 1994 Musculoskeletal upper extremity Palpation - wrist: tender 04/13/2016 None Full Exam - General 1994 Musculoskeletal upper extremity ROM - wrist: pain with flexion 04/13/2016 None Full Exam - General 1994 Neurologic cranial nerves Overall: crainial nerves 2 - 12 grossly intact 04/13/2016 None Full Exam - General 1994 Psychiatric orientation/consciousness Overall: oriented to person, place and time 04/13/2016 None Full Exam - General 1994 Psychiatric mood and affect Mood: depressed 04/13/2016 None Full Exam - General 1994 Psychiatric appearance Overall: well-groomed, good eye contact 04/13/2016 None Full Exam - General 1994 Abdomen abdominal exam Overall: no tenderness 04/13/2016 None Full Exam - General 1994 Abdomen abdominal exam Overall: normal bowel sounds 04/13/2016 None Full Exam - General 1994 Musculoskeletal digits and nails MCPs: third 04/13/2016 None Full Exam - General 1994 Musculoskeletal digits and nails MCPs: swelling 04/13/2016 None Full Exam - General 1994 Constitutional general appearance Development: well developed 03/22/2016 None Full Exam - General 1994 Constitutional general appearance Development: appears stated age 0603/22/2016 None Full Exam - General 1994 Constitutional general appearance Hygiene/Attention to Grooming: good hygiene 03/22/2016 None Full Exam - General 1994 Eyes conjunctiva /eyelids Overall: conjunctiva clear 03/22/2016 None Full Exam - General 1994 Eyes conjunctiva /eyelids Overall: cornea clear 03/22/2016 None Full Exam - General 1994 Eyes conjunctiva /eyelids Overall: eyelids normal 03/22/2016 None Full Exam - General 1994 Eyes pupils and irises Overall: pupils equal, round, reactive to light and accomodation 03/22/2016 None Full Exam - General 1994 Ears/Nose/Throat lips/teeth/gingiva Overall: benign lips 03/22/2016 None Full Exam - General 1994 Ears/Nose/Throat lips/teeth/gingiva Overall: normal dentition 03/22/2016 None Full Exam - General 1994 Respiratory respiratory effort/rhythm Overall: no retractions 03/22/2016 None Full Exam - General 1994 Respiratory respiratory effort/rhythm Overall: normal rate 03/22/2016 None Full Exam - General 1994 Cardiovascular extremities Overall: no clubbing 03/22/2016 None Full Exam - General 1994 Musculoskeletal upper extremity Palpation - wrist: tender 03/22/2016 None Full Exam - General 1994 Musculoskeletal upper extremity ROM - wrist: pain with flexion 03/22/2016 None Full Exam - General 1994 Integument inspection of skin Dermatitis: erythema 03/22/2016 under left breast and right breast and right groin/lower abdominal fold - tissue with minimal erythema Full Exam - General 1994 Integument inspection of skin Rash/Lesions: patch 03/22/2016 None Full Exam - General 1994 Neurologic cranial nerves Overall: crainial nerves 2 - 12 grossly intact 03/22/2016 None Full Exam - General 1994 Psychiatric orientation/consciousness Overall: oriented to person, place and time 03/22/2016 None Full Exam - General 1994 Psychiatric mood and affect Mood: depressed 03/22/2016 None Full Exam - General 1994 Psychiatric appearance Overall: well-groomed, good eye contact 03/22/2016 None Full Exam - General 1994 Constitutional general appearance Development: well developed 03/02/2016 None Full Exam - General 1994 Constitutional general appearance Development: appears stated age 0503/02/2016 None Full Exam - General 1994 Constitutional general appearance Hygiene/Attention to Grooming: good hygiene 03/02/2016 None Full Exam - General 1994 Eyes conjunctiva /eyelids Overall: conjunctiva clear 03/02/2016 None Full Exam - General 1994 Eyes conjunctiva /eyelids Overall: cornea clear 03/02/2016 None Full Exam - General 1994 Eyes conjunctiva /eyelids Overall: eyelids normal 03/02/2016 None Full Exam - General 1994 Eyes pupils and irises Overall: pupils equal, round, reactive to light and accomodation 03/02/2016 None Full Exam - General 1994 Ears/Nose/Throat lips/teeth/gingiva Overall: benign lips 03/02/2016 None Full Exam - General 1994 Ears/Nose/Throat lips/teeth/gingiva Overall: normal dentition 03/02/2016 None Full Exam - General 1994 Respiratory respiratory effort/rhythm Overall: no retractions 03/02/2016 None Full Exam - General 1994 Respiratory respiratory effort/rhythm Overall: normal rate 03/02/2016 None Full Exam - General 1994 Cardiovascular extremities Overall: no clubbing 03/02/2016 None Full Exam - General 1994 Musculoskeletal upper extremity Palpation - wrist: tender 03/02/2016 None Full Exam - General 1994 Musculoskeletal upper extremity ROM - wrist: pain with flexion 03/02/2016 None Full Exam - General 1994 Integument inspection of skin Dermatitis: erythema 03/02/2016 under left breast and right breast and right groin/lower abdominal fold - macerated tissue with erythema Full Exam - General 1994 Integument inspection of skin Rash/Lesions: patch 03/02/2016 None Full Exam - General 1994 Neurologic cranial nerves Overall: crainial nerves 2 - 12 grossly intact 03/02/2016 None Full Exam - General 1994 Psychiatric orientation/consciousness Overall: oriented to person, place and time 03/02/2016 None Full Exam - General 1994 Psychiatric mood and affect Mood: depressed 03/02/2016 None Full Exam - General 1994 Psychiatric appearance Overall: well-groomed, good eye contact 03/02/2016 None Full Exam - General 1994 Constitutional general appearance Development: well developed 02/23/2016 None Full Exam - General 1994 Constitutional general appearance Development: appears stated age 0502/23/2016 None Full Exam - General 1994 Constitutional general appearance Hygiene/Attention to Grooming: good hygiene 02/23/2016 None Full Exam - General 1994 Eyes conjunctiva /eyelids Overall: conjunctiva clear 02/23/2016 None Full Exam - General 1994 Eyes conjunctiva /eyelids Overall: cornea clear 02/23/2016 None Full Exam - General 1994 Eyes conjunctiva /eyelids Overall: eyelids normal 02/23/2016 None Full Exam - General 1994 Eyes pupils and irises Overall: pupils equal, round, reactive to light and accomodation 02/23/2016 None Full Exam - General 1994 Ears/Nose/Throat lips/teeth/gingiva Overall: benign lips 02/23/2016 None Full Exam - General 1994 Ears/Nose/Throat lips/teeth/gingiva Overall: normal dentition 02/23/2016 None Full Exam - General 1994 Respiratory respiratory effort/rhythm Overall: no retractions 02/23/2016 None Full Exam - General 1994 Respiratory respiratory effort/rhythm Overall: normal rate 02/23/2016 None Full Exam - General 1994 Cardiovascular extremities Overall: no clubbing 02/23/2016 None Full Exam - General 1994 Musculoskeletal upper extremity Palpation - wrist: tender 02/23/2016 None Full Exam - General 1994 Integument inspection of skin Dermatitis: erythema 02/23/2016 under left breast and right breast and right groin/lower abdominal fold - macerated tissue with erythema Full Exam - General 1994 Integument inspection of skin Rash/Lesions: patch 02/23/2016 None Full Exam - General 1994 Neurologic cranial nerves Overall: crainial nerves 2 - 12 grossly intact 02/23/2016 None Full Exam - General 1994 Psychiatric orientation/consciousness Overall: oriented to person, place and time 02/23/2016 None Full Exam - General 1994 Musculoskeletal upper extremity Palpation - wrist: positive Tinel's test 02/23/2016 None Full Exam - General 1994 Musculoskeletal upper extremity ROM - wrist: pain with flexion 02/23/2016 None Full Exam - General 1994 Psychiatric mood and affect Mood: depressed 02/23/2016 None Full Exam - General 1994 Psychiatric appearance Overall: well-groomed, good eye contact 02/23/2016 None Full Exam - General 1994 Constitutional general appearance Development: well developed 01/09/2016 None Full Exam - General 1994 Constitutional general appearance Development: appears stated age 0401/09/2016 None Full Exam - General 1994 Constitutional general appearance Hygiene/Attention to Grooming: good hygiene 01/09/2016 None Full Exam - General 1994 Eyes conjunctiva /eyelids Overall: conjunctiva clear 01/09/2016 None Full Exam - General 1994 Eyes conjunctiva /eyelids Overall: cornea clear 01/09/2016 None Full Exam - General 1994 Eyes conjunctiva /eyelids Overall: eyelids normal 01/09/2016 None Full Exam - General 1994 Eyes pupils and irises Overall: pupils equal, round, reactive to light and accomodation 01/09/2016 None Full Exam - General 1994 Ears/Nose/Throat lips/teeth/gingiva Overall: benign lips 01/09/2016 None Full Exam - General 1994 Ears/Nose/Throat lips/teeth/gingiva Overall: normal dentition 01/09/2016 None Full Exam - General 1994 Ears/Nose/Throat oral cavity/pharynx/larynx Overall: oral mucosa clear 01/09/2016 None Full Exam - General 1994 Ears/Nose/Throat oral cavity/pharynx/larynx Overall: oropharyngeal mucosa clear 01/09/2016 None Full Exam - General 1994 Ears/Nose/Throat oral cavity/pharynx/larynx Overall: hypopharynx benign 01/09/2016 None Full Exam - General 1994 Ears/Nose/Throat oral cavity/pharynx/larynx Overall: no masses 01/09/2016 None Full Exam - General 1994 Respiratory auscultation Overall: breath sounds clear bilaterally 01/09/2016 None Full Exam - General 1994 Respiratory respiratory effort/rhythm Overall: no retractions 01/09/2016 None Full Exam - General 1994 Respiratory respiratory effort/rhythm Overall: normal rate 01/09/2016 None Full Exam - General 1994 Cardiovascular extremities Overall: no clubbing 01/09/2016 None Full Exam - General 1994 Cardiovascular auscultation of heart Overall: regular rate 01/09/2016 None Full Exam - General 1994 Cardiovascular auscultation of heart Overall: normal heart sounds 01/09/2016 None Full Exam - General 1994 Abdomen abdominal exam Overall: no tenderness 01/09/2016 None Full Exam - General 1994 Abdomen abdominal exam Overall: normal bowel sounds 01/09/2016 None Full Exam - General 1994 Integument inspection of skin Dermatitis: erythema 01/09/2016 under left breast and right breast and right groin/lower abdominal fold - macerated tissue with erythema Full Exam - General 1994 Integument inspection of skin Rash/Lesions: patch 01/09/2016 None Full Exam - General 1994 Neurologic deep tendon reflexes Overall: deep tendon reflexes intact 01/09/2016 None Full Exam - General 1994 Neurologic cranial nerves Overall: crainial nerves 2 - 12 grossly intact 01/09/2016 None Full Exam - General 1994 Psychiatric orientation/consciousness Overall: oriented to person, place and time 01/09/2016 None Full Exam - General 1994 Psychiatric mood and affect Overall: normal mood and affect 01/09/2016 None Full Exam - General 1994 Musculoskeletal upper extremity Inspection - wrist: redness 01/09/2016 None Full Exam - General 1994 Musculoskeletal upper extremity Palpation - wrist: tender 01/09/2016 None Full Exam - General 1994 Constitutional general appearance Development: well developed 12/09/2015 None Full Exam - General 1994 Constitutional general appearance Development: appears stated age 0312/09/2015 None Full Exam - General 1994 Constitutional general appearance Hygiene/Attention to Grooming: good hygiene 12/09/2015 None Full Exam - General 1994 Eyes conjunctiva /eyelids Overall: conjunctiva clear 12/09/2015 None Full Exam - General 1994 Eyes conjunctiva /eyelids Overall: cornea clear 12/09/2015 None Full Exam - General 1994 Eyes conjunctiva /eyelids Overall: eyelids normal 12/09/2015 None Full Exam - General 1994 Eyes pupils and irises Overall: pupils equal, round, reactive to light and accomodation 12/09/2015 None Full Exam - General 1994 Ears/Nose/Throat lips/teeth/gingiva Overall: benign lips 12/09/2015 None Full Exam - General 1994 Ears/Nose/Throat lips/teeth/gingiva Overall: normal dentition 12/09/2015 None Full Exam - General 1994 Ears/Nose/Throat oral cavity/pharynx/larynx Overall: oral mucosa clear 12/09/2015 None Full Exam - General 1994 Ears/Nose/Throat oral cavity/pharynx/larynx Overall: oropharyngeal mucosa clear 12/09/2015 None Full Exam - General 1994 Ears/Nose/Throat oral cavity/pharynx/larynx Overall: hypopharynx benign 12/09/2015 None Full Exam - General 1994 Ears/Nose/Throat oral cavity/pharynx/larynx Overall: no masses 12/09/2015 None Full Exam - General 1994 Respiratory auscultation Overall: breath sounds clear bilaterally 12/09/2015 None Full Exam - General 1994 Respiratory respiratory effort/rhythm Overall: no retractions 12/09/2015 None Full Exam - General 1994 Respiratory respiratory effort/rhythm Overall: normal rate 12/09/2015 None Full Exam - General 1994 Cardiovascular extremities Overall: no clubbing 12/09/2015 None Full Exam - General 1994 Cardiovascular auscultation of heart Overall: regular rate 12/09/2015 None Full Exam - General 1994 Cardiovascular auscultation of heart Overall: normal heart sounds 12/09/2015 None Full Exam - General 1994 Abdomen abdominal exam Overall: no tenderness 12/09/2015 None Full Exam - General 1994 Abdomen abdominal exam Overall: normal bowel sounds 12/09/2015 None Full Exam - General 1994 Integument inspection of skin Dermatitis: erythema 12/09/2015 under left breast and right breast and right groin/lower abdominal fold - macerated tissue with erythema Full Exam - General 1994 Integument inspection of skin Rash/Lesions: patch 12/09/2015 None Full Exam - General 1994 Neurologic deep tendon reflexes Overall: deep tendon reflexes intact 12/09/2015 None Full Exam - General 1994 Neurologic cranial nerves Overall: crainial nerves 2 - 12 grossly intact 12/09/2015 None Full Exam - General 1994 Psychiatric orientation/consciousness Overall: oriented to person, place and time 12/09/2015 None Full Exam - General 1994 Psychiatric mood and affect Overall: normal mood and affect 12/09/2015 None Full Exam - General 1994 Constitutional general appearance Development: well developed 11/14/2015 None Full Exam - General 1994 Constitutional general appearance Development: appears stated age 0211/14/2015 None Full Exam - General 1994 Constitutional general appearance Hygiene/Attention to Grooming: good hygiene 11/14/2015 None Full Exam - General 1994 Eyes conjunctiva /eyelids Overall: conjunctiva clear 11/14/2015 None Full Exam - General 1994 Eyes conjunctiva /eyelids Overall: cornea clear 11/14/2015 None Full Exam - General 1994 Eyes conjunctiva /eyelids Overall: eyelids normal 11/14/2015 None Full Exam - General 1994 Eyes pupils and irises Overall: pupils equal, round, reactive to light and accomodation 11/14/2015 None Full Exam - General 1994 Ears/Nose/Throat lips/teeth/gingiva Overall: benign lips 11/14/2015 None Full Exam - General 1994 Ears/Nose/Throat lips/teeth/gingiva Overall: normal dentition 11/14/2015 None Full Exam - General 1994 Ears/Nose/Throat oral cavity/pharynx/larynx Overall: oral mucosa clear 11/14/2015 None Full Exam - General 1994 Ears/Nose/Throat oral cavity/pharynx/larynx Overall: oropharyngeal mucosa clear 11/14/2015 None Full Exam - General 1994 Ears/Nose/Throat oral cavity/pharynx/larynx Overall: hypopharynx benign 11/14/2015 None Full Exam - General 1994 Ears/Nose/Throat oral cavity/pharynx/larynx Overall: no masses 11/14/2015 None Full Exam - General 1994 Respiratory auscultation Overall: breath sounds clear bilaterally 11/14/2015 None Full Exam - General 1994 Respiratory respiratory effort/rhythm Overall: no retractions 11/14/2015 None Full Exam - General 1994 Respiratory respiratory effort/rhythm Overall: normal rate 11/14/2015 None Full Exam - General 1994 Cardiovascular extremities Overall: no clubbing 11/14/2015 None Full Exam - General 1994 Cardiovascular auscultation of heart Overall: regular rate 11/14/2015 None Full Exam - General 1994 Cardiovascular auscultation of heart Overall: normal heart sounds 11/14/2015 None Full Exam - General 1994 Abdomen abdominal exam Overall: no tenderness 11/14/2015 None Full Exam - General 1994 Abdomen abdominal exam Overall: normal bowel sounds 11/14/2015 None Full Exam - General 1994 Integument inspection of skin Dermatitis: erythema 11/14/2015 under left breast and right breast and right groin/lower abdominal fold - macerated tissue with erythema Full Exam - General 1994 Neurologic deep tendon reflexes Overall: deep tendon reflexes intact 11/14/2015 None Full Exam - General 1994 Neurologic cranial nerves Overall: crainial nerves 2 - 12 grossly intact 11/14/2015 None Full Exam - General 1994 Psychiatric orientation/consciousness Overall: oriented to person, place and time 11/14/2015 None Full Exam - General 1994 Psychiatric mood and affect Overall: normal mood and affect 11/14/2015 None Full Exam - General 1994 Integument inspection of skin Rash/Lesions: patch 11/14/2015 None Full Exam - General 1994 Constitutional general appearance Development: well developed 10/31/2015 None Full Exam - General 1994 Constitutional general appearance Development: appears stated age 0110/31/2015 None Full Exam - General 1994 Constitutional general appearance Hygiene/Attention to Grooming: good hygiene 10/31/2015 None Full Exam - General 1994 Eyes conjunctiva /eyelids Overall: conjunctiva clear 10/31/2015 None Full Exam - General 1994 Eyes conjunctiva /eyelids Overall: cornea clear 10/31/2015 None Full Exam - General 1994 Eyes conjunctiva /eyelids Overall: eyelids normal 10/31/2015 None Full Exam - General 1994 Eyes pupils and irises Overall: pupils equal, round, reactive to light and accomodation 10/31/2015 None Full Exam - General 1994 Ears/Nose/Throat otoscopic exam Overall: external auditory canals clear 10/31/2015 None Full Exam - General 1994 Ears/Nose/Throat otoscopic exam Overall: tympanic membranes clear 10/31/2015 None Full Exam - General 1994 Ears/Nose/Throat lips/teeth/gingiva Overall: benign lips 10/31/2015 None Full Exam - General 1994 Ears/Nose/Throat lips/teeth/gingiva Overall: normal dentition 10/31/2015 None Full Exam - General 1994 Ears/Nose/Throat oral cavity/pharynx/larynx Overall: oral mucosa clear 10/31/2015 None Full Exam - General 1994 Ears/Nose/Throat oral cavity/pharynx/larynx Overall: oropharyngeal mucosa clear 10/31/2015 None Full Exam - General 1994 Ears/Nose/Throat oral cavity/pharynx/larynx Overall: hypopharynx benign 10/31/2015 None Full Exam - General 1994 Ears/Nose/Throat oral cavity/pharynx/larynx Overall: no masses 10/31/2015 None Full Exam - General 1994 Respiratory auscultation Overall: breath sounds clear bilaterally 10/31/2015 None Full Exam - General 1994 Respiratory respiratory effort/rhythm Overall: no retractions 10/31/2015 None Full Exam - General 1994 Respiratory respiratory effort/rhythm Overall: normal rate 10/31/2015 None Full Exam - General 1994 Cardiovascular inspection of carotid pulses Carotid pulse: carotid bruit 10/31/2015 None Full Exam - General 1994 Cardiovascular extremities Overall: no clubbing 10/31/2015 None Full Exam - General 1994 Cardiovascular auscultation of heart Overall: regular rate 10/31/2015 None Full Exam - General 1994 Cardiovascular auscultation of heart Overall: normal heart sounds 10/31/2015 None Full Exam - General 1994 Abdomen abdominal exam Overall: no tenderness 10/31/2015 None Full Exam - General 1994 Abdomen abdominal exam Overall: normal bowel sounds 10/31/2015 None Full Exam - General 1994 Integument inspection of skin Dermatitis: erythema 10/31/2015 under left breast and right breast and right groin/lower abdominal fold - macerated tissue with erythema - appearance of yeast infection under tissue. Full Exam - General 1994 Neurologic deep tendon reflexes Overall: deep tendon reflexes intact 10/31/2015 None Full Exam - General 1994 Neurologic cranial nerves Overall: crainial nerves 2 - 12 grossly intact 10/31/2015 None Full Exam - General 1994 Psychiatric orientation/consciousness Overall: oriented to person, place and time 10/31/2015 None Full Exam - General 1994 Psychiatric mood and affect Overall: normal mood and affect 10/31/2015 None Full Exam - General 1994 Constitutional general appearance Development: well developed 12/12/2014 None Full Exam - General 1994 Constitutional general appearance Development: appears stated age 0312/12/2014 None Full Exam - General 1994 Constitutional general appearance Hygiene/Attention to Grooming: good hygiene 12/12/2014 None Full Exam - General 1994 Eyes conjunctiva /eyelids Overall: conjunctiva clear 12/12/2014 None Full Exam - General 1994 Eyes conjunctiva /eyelids Overall: cornea clear 12/12/2014 None Full Exam - General 1994 Eyes conjunctiva /eyelids Overall: eyelids normal 12/12/2014 None Full Exam - General 1994 Eyes pupils and irises Overall: pupils equal, round, reactive to light and accomodation 12/12/2014 None Full Exam - General 1994 Ears/Nose/Throat otoscopic exam Overall: external auditory canals clear 12/12/2014 None Full Exam - General 1994 Ears/Nose/Throat otoscopic exam Overall: tympanic membranes clear 12/12/2014 None Full Exam - General 1994 Ears/Nose/Throat lips/teeth/gingiva Overall: benign lips 12/12/2014 None Full Exam - General 1994 Ears/Nose/Throat lips/teeth/gingiva Overall: normal dentition 12/12/2014 None Full Exam - General 1994 Ears/Nose/Throat oral cavity/pharynx/larynx Overall: oral mucosa clear 12/12/2014 None Full Exam - General 1994 Ears/Nose/Throat oral cavity/pharynx/larynx Overall: oropharyngeal mucosa clear 12/12/2014 None Full Exam - General 1994 Ears/Nose/Throat oral cavity/pharynx/larynx Overall: hypopharynx benign 12/12/2014 None Full Exam - General 1994 Ears/Nose/Throat oral cavity/pharynx/larynx Overall: no masses 12/12/2014 None Full Exam - General 1994 Respiratory auscultation Overall: breath sounds clear bilaterally 12/12/2014 None Full Exam - General 1994 Respiratory respiratory effort/rhythm Overall: no retractions 12/12/2014 None Full Exam - General 1994 Respiratory respiratory effort/rhythm Overall: normal rate 12/12/2014 None Full Exam - General 1994 Cardiovascular extremities Overall: no clubbing 12/12/2014 None Full Exam - General 1994 Cardiovascular auscultation of heart Overall: regular rate 12/12/2014 None Full Exam - General 1994 Cardiovascular auscultation of heart Overall: normal heart sounds 12/12/2014 None Full Exam - General 1994 Abdomen abdominal exam Overall: no tenderness 12/12/2014 None Full Exam - General 1994 Abdomen abdominal exam Overall: normal bowel sounds 12/12/2014 None Full Exam - General 1994 Musculoskeletal spine, ribs and pelvis Sacroiliac joints: nontender 12/12/2014 but pt has tenderness deep in buttock on the left with pain down her posterior thigh Full Exam - General 1994 Integument inspection of skin Dermatitis: erythema 12/12/2014 under left breast and right breast and right groin/lower abdominal fold - macerated tissue with erythema - appearance of yeast infection under tissue. Full Exam - General 1994 Neurologic deep tendon reflexes Overall: deep tendon reflexes intact 12/12/2014 None Full Exam - General 1994 Neurologic cranial nerves Overall: crainial nerves 2 - 12 grossly intact 12/12/2014 None Full Exam - General 1994 Psychiatric orientation/consciousness Overall: oriented to person, place and time 12/12/2014 None Full Exam - General 1994 Psychiatric mood and affect Overall: normal mood and affect 12/12/2014 None Full Exam - General 1994 Musculoskeletal upper extremity Inspection - shoulder: a normal exam 12/12/2014 None Full Exam - General 1994 Musculoskeletal upper extremity Palpation - shoulder: tenderness @ subacromial space 12/12/2014 None Full Exam - General 1994 Musculoskeletal upper extremity Palpation - shoulder: tenderness @ bicipital groove 12/12/2014 None Full Exam - General 1994 Constitutional general appearance Development: well developed 11/11/2014 None Full Exam - General 1994 Constitutional general appearance Development: appears stated age 0211/11/2014 None Full Exam - General 1994 Constitutional general appearance Hygiene/Attention to Grooming: good hygiene 11/11/2014 None Full Exam - General 1994 Eyes conjunctiva /eyelids Overall: conjunctiva clear 11/11/2014 None Full Exam - General 1994 Eyes conjunctiva /eyelids Overall: cornea clear 11/11/2014 None Full Exam - General 1994 Eyes conjunctiva /eyelids Overall: eyelids normal 11/11/2014 None Full Exam - General 1994 Eyes pupils and irises Overall: pupils equal, round, reactive to light and accomodation 11/11/2014 None Full Exam - General 1994 Ears/Nose/Throat otoscopic exam Overall: external auditory canals clear 11/11/2014 None Full Exam - General 1994 Ears/Nose/Throat otoscopic exam Overall: tympanic membranes clear 11/11/2014 None Full Exam - General 1994 Ears/Nose/Throat lips/teeth/gingiva Overall: benign lips 11/11/2014 None Full Exam - General 1994 Ears/Nose/Throat lips/teeth/gingiva Overall: normal dentition 11/11/2014 None Full Exam - General 1994 Ears/Nose/Throat oral cavity/pharynx/larynx Overall: oral mucosa clear 11/11/2014 None Full Exam - General 1994 Ears/Nose/Throat oral cavity/pharynx/larynx Overall: oropharyngeal mucosa clear 11/11/2014 None Full Exam - General 1994 Ears/Nose/Throat oral cavity/pharynx/larynx Overall: hypopharynx benign 11/11/2014 None Full Exam - General 1994 Ears/Nose/Throat oral cavity/pharynx/larynx Overall: no masses 11/11/2014 None Full Exam - General 1994 Respiratory auscultation Overall: breath sounds clear bilaterally 11/11/2014 None Full Exam - General 1994 Respiratory respiratory effort/rhythm Overall: no retractions 11/11/2014 None Full Exam - General 1994 Respiratory respiratory effort/rhythm Overall: normal rate 11/11/2014 None Full Exam - General 1994 Cardiovascular extremities Overall: no clubbing 11/11/2014 None Full Exam - General 1994 Cardiovascular auscultation of heart Overall: regular rate 11/11/2014 None Full Exam - General 1994 Cardiovascular auscultation of heart Overall: normal heart sounds 11/11/2014 None Full Exam - General 1994 Abdomen abdominal exam Overall: no tenderness 11/11/2014 None Full Exam - General 1994 Abdomen abdominal exam Overall: normal bowel sounds 11/11/2014 None Full Exam - General 1994 Musculoskeletal spine, ribs and pelvis Sacroiliac joints: nontender 11/11/2014 but pt has tenderness deep in buttock on the left with pain down her posterior thigh Full Exam - General 1994 Integument inspection of skin Dermatitis: erythema 11/11/2014 under left breast and right breast and right groin/lower abdominal fold - macerated tissue with erythema - appearance of yeast infection under tissue. Full Exam - General 1994 Neurologic deep tendon reflexes Overall: deep tendon reflexes intact 11/11/2014 None Full Exam - General 1994 Neurologic cranial nerves Overall: crainial nerves 2 - 12 grossly intact 11/11/2014 None Full Exam - General 1994 Psychiatric orientation/consciousness Overall: oriented to person, place and time 11/11/2014 None Full Exam - General 1994 Psychiatric mood and affect Overall: normal mood and affect 11/11/2014 None Full Exam - General 1994 Cardiovascular inspection of carotid pulses Carotid pulse: carotid bruit 11/11/2014 None Full Exam - General 1994 Constitutional general appearance Development: well developed 07/03/2014 None Full Exam - General 1994 Constitutional general appearance Development: appears stated age 1007/03/2014 None Full Exam - General 1994 Constitutional general appearance Hygiene/Attention to Grooming: good hygiene 07/03/2014 None Full Exam - General 1994 Eyes conjunctiva /eyelids Overall: conjunctiva clear 07/03/2014 None Full Exam - General 1994 Eyes conjunctiva /eyelids Overall: cornea clear 07/03/2014 None Full Exam - General 1994 Eyes conjunctiva /eyelids Overall: eyelids normal 07/03/2014 None Full Exam - General 1994 Eyes pupils and irises Overall: pupils equal, round, reactive to light and accomodation 07/03/2014 None Full Exam - General 1994 Ears/Nose/Throat otoscopic exam Overall: external auditory canals clear 07/03/2014 None Full Exam - General 1994 Ears/Nose/Throat otoscopic exam Overall: tympanic membranes clear 07/03/2014 None Full Exam - General 1994 Ears/Nose/Throat lips/teeth/gingiva Overall: benign lips 07/03/2014 None Full Exam - General 1994 Ears/Nose/Throat lips/teeth/gingiva Overall: normal dentition 07/03/2014 None Full Exam - General 1994 Ears/Nose/Throat oral cavity/pharynx/larynx Overall: oral mucosa clear 07/03/2014 None Full Exam - General 1994 Ears/Nose/Throat oral cavity/pharynx/larynx Overall: oropharyngeal mucosa clear 07/03/2014 None Full Exam - General 1994 Ears/Nose/Throat oral cavity/pharynx/larynx Overall: no masses 07/03/2014 None Full Exam - General 1994 Respiratory auscultation Overall: breath sounds clear bilaterally 07/03/2014 None Full Exam - General 1994 Respiratory respiratory effort/rhythm Overall: no retractions 07/03/2014 None Full Exam - General 1994 Respiratory respiratory effort/rhythm Overall: normal rate 07/03/2014 None Full Exam - General 1994 Cardiovascular extremities Overall: no clubbing 07/03/2014 None Full Exam - General 1994 Cardiovascular auscultation of heart Overall: regular rate 07/03/2014 None Full Exam - General 1994 Cardiovascular auscultation of heart Overall: normal heart sounds 07/03/2014 None Full Exam - General 1994 Abdomen abdominal exam Overall: no tenderness 07/03/2014 None Full Exam - General 1994 Abdomen abdominal exam Overall: normal bowel sounds 07/03/2014 None Full Exam - General 1994 Integument inspection of skin Dermatitis: erythema 07/03/2014 under left breast and right breast and right groin/lower abdominal fold - macerated tissue with erythema - appearance of yeast infection under tissue. Full Exam - General 1994 Psychiatric orientation/consciousness Overall: oriented to person, place and time 07/03/2014 None Full Exam - General 1994 Psychiatric mood and affect Overall: normal mood and affect 07/03/2014 None Full Exam - General 1994 Constitutional general appearance Hygiene/Attention to Grooming: normal grooming 07/03/2014 None Full Exam - General 1994 Ears/Nose/Throat oral cavity/pharynx/larynx Overall: hypopharynx benign 07/03/2014 but difficult to visualize due to thick tongue and arched palate Full Exam - General 1994 Constitutional general appearance Development: well developed 12/04/2013 None Full Exam - General 1994 Constitutional general appearance Development: appears stated age 0312/04/2013 None Full Exam - General 1994 Constitutional general appearance Hygiene/Attention to Grooming: good hygiene 12/04/2013 None Full Exam - General 1994 Eyes conjunctiva /eyelids Overall: conjunctiva clear 12/04/2013 None Full Exam - General 1994 Eyes conjunctiva /eyelids Overall: cornea clear 12/04/2013 None Full Exam - General 1994 Eyes conjunctiva /eyelids Overall: eyelids normal 12/04/2013 None Full Exam - General 1994 Eyes pupils and irises Overall: pupils equal, round, reactive to light and accomodation 12/04/2013 None Full Exam - General 1994 Ears/Nose/Throat otoscopic exam Overall: external auditory canals clear 12/04/2013 None Full Exam - General 1994 Ears/Nose/Throat otoscopic exam Overall: tympanic membranes clear 12/04/2013 None Full Exam - General 1994 Ears/Nose/Throat lips/teeth/gingiva Overall: benign lips 12/04/2013 None Full Exam - General 1994 Ears/Nose/Throat lips/teeth/gingiva Overall: normal dentition 12/04/2013 None Full Exam - General 1994 Ears/Nose/Throat oral cavity/pharynx/larynx Overall: oral mucosa clear 12/04/2013 None Full Exam - General 1995 Ears/Nose/Throat oral cavity/pharynx/larynx Overall: oropharyngeal mucosa clear 12/04/2013 None Full Exam - General 1994 Ears/Nose/Throat oral cavity/pharynx/larynx Overall: hypopharynx benign 12/04/2013 None Full Exam - General 1994 Ears/Nose/Throat oral cavity/pharynx/larynx Overall: no masses 12/04/2013 None Full Exam - General 1994 Respiratory auscultation Overall: breath sounds clear bilaterally 12/04/2013 None Full Exam - General 1994 Respiratory respiratory effort/rhythm Overall: no retractions 12/04/2013 None Full Exam - General 1994 Respiratory respiratory effort/rhythm Overall: normal rate 12/04/2013 None Full Exam - General 1994 Cardiovascular extremities Overall: no clubbing 12/04/2013 None Full Exam - General 1994 Cardiovascular auscultation of heart Overall: regular rate 12/04/2013 None Full Exam - General 1994 Cardiovascular auscultation of heart Overall: normal heart sounds 12/04/2013 None Full Exam - General 1994 Abdomen abdominal exam Overall: no tenderness 12/04/2013 None Full Exam - General 1994 Abdomen abdominal exam Overall: normal bowel sounds 12/04/2013 None Full Exam - General 1994 Neurologic deep tendon reflexes Overall: deep tendon reflexes intact 12/04/2013 None Full Exam - General 1994 Neurologic cranial nerves Overall: crainial nerves 2 - 12 grossly intact 12/04/2013 None Full Exam - General 1994 Psychiatric orientation/consciousness Overall: oriented to person, place and time 12/04/2013 None Full Exam - General 1994 Psychiatric mood and affect Overall: normal mood and affect 12/04/2013 None Full Exam - General 1994 Integument inspection of skin Dermatitis: erythema 12/04/2013 under left breast and right breast and right groin/lower abdominal fold - macerated tissue with erythema - appearance of yeast infection under tissue. Full Exam - General 1994 Musculoskeletal spine, ribs and pelvis Sacroiliac joints: nontender 12/04/2013 but pt has tenderness deep in buttock on the left with pain down her posterior thigh Full Exam - General 1994 Constitutional general appearance Overall: well developed 11/13/2013 None Full Exam - General 1994 Constitutional general appearance Overall: in no acute distress 11/13/2013 None Full Exam - General 1994 Constitutional general appearance Overall: well nourished 11/13/2013 None Full Exam - General 1994 Psychiatric orientation/consciousness Overall: oriented to person, place and time 11/13/2013 None Full Exam - General 1994 Integument inspection of skin Location: inguinal area 11/13/2013 right Full Exam - General 1994 Integument inspection of skin Dermatitis: erythema 11/13/2013 None Full Exam - General 1994 Integument inspection of skin Rash/Lesions: patch 11/13/2013 under breasts and right abdominal fold Full Exam - General 1994 Constitutional general appearance Development: appears stated age 1007/16/2013 None Full Exam - General 1994 Constitutional general appearance Development: well developed 07/16/2013 None Full Exam - General 1994 Constitutional general appearance Hygiene/Attention to Grooming: good hygiene 07/16/2013 None Full Exam - General 1994 Eyes conjunctiva /eyelids Overall: conjunctiva clear 07/16/2013 None Full Exam - General 1994 Eyes conjunctiva /eyelids Overall: cornea clear 07/16/2013 None Full Exam - General 1994 Eyes conjunctiva /eyelids Overall: eyelids normal 07/16/2013 None Full Exam - General 1994 Eyes pupils and irises Overall: pupils equal, round, reactive to light and accomodation 07/16/2013 None Full Exam - General 1995 Ears/Nose/Throat otoscopic exam Overall: external auditory canals clear 07/16/2013 None Full Exam - General 1995 Ears/Nose/Throat otoscopic exam Overall: tympanic membranes clear 07/16/2013 None Full Exam - General 1995 Ears/Nose/Throat lips/teeth/gingiva Overall: benign lips 07/16/2013 None Full Exam - General 1995 Ears/Nose/Throat lips/teeth/gingiva Overall: normal dentition 07/16/2013 None Full Exam - General 1995 Ears/Nose/Throat oral cavity/pharynx/larynx Overall: hypopharynx benign 07/16/2013 None Full Exam - General 1995 Ears/Nose/Throat oral cavity/pharynx/larynx Overall: no masses 07/16/2013 None Full Exam - General 1995 Ears/Nose/Throat oral cavity/pharynx/larynx Overall: oral mucosa clear 07/16/2013 None Full Exam - General 1995 Ears/Nose/Throat oral cavity/pharynx/larynx Overall: oropharyngeal mucosa clear 07/16/2013 None Full Exam - General 1994 Respiratory auscultation Overall: breath sounds clear bilaterally 07/16/2013 None Full Exam - General 1994 Respiratory respiratory effort/rhythm Overall: no retractions 07/16/2013 None Full Exam - General 1994 Respiratory respiratory effort/rhythm Overall: normal rate 07/16/2013 None Full Exam - General 1994 Cardiovascular extremities Overall: no clubbing 07/16/2013 None Full Exam - General 1994 Cardiovascular auscultation of heart Overall: normal heart sounds 07/16/2013 None Full Exam - General 1994 Cardiovascular auscultation of heart Overall: regular rate 07/16/2013 None Full Exam - General 1994 Abdomen abdominal exam Overall: no tenderness 07/16/2013 None Full Exam - General 1994 Abdomen abdominal exam Overall: normal bowel sounds 07/16/2013 None Full Exam - General 1994 Integument inspection of skin Overall: few scattered moles, no gross abnormalities 07/16/2013 None Full Exam - General 1994 Neurologic deep tendon reflexes Overall: deep tendon reflexes intact 07/16/2013 None Full Exam - General 1994 Neurologic cranial nerves Overall: crainial nerves 2 - 12 grossly intact 07/16/2013 None Full Exam - General 1994 Psychiatric orientation/consciousness Overall: oriented to person, place and time 07/16/2013 None Full Exam - General 1994 Psychiatric mood and affect Overall: normal mood and affect 07/16/2013 None Full Exam - General 1995 Constitutional general appearance Overall: well developed 07/02/2013 None Full Exam - General 1995 Constitutional general appearance Overall: in no acute distress 07/02/2013 None Full Exam - General 1995 Constitutional general appearance Overall: well nourished 07/02/2013 None Full Exam - General 1995 Eyes conjunctiva /eyelids Overall: conjunctiva clear 07/02/2013 None Full Exam - General 1995 Eyes conjunctiva /eyelids Overall: cornea clear 07/02/2013 None Full Exam - General 1995 Eyes conjunctiva /eyelids Overall: eyelids normal 07/02/2013 None Full Exam - General 1995 Eyes pupils and irises Overall: pupils equal, round, reactive to light and accomodation 07/02/2013 None Full Exam - General 1995 Ears/Nose/Throat otoscopic exam Overall: external auditory canals clear 07/02/2013 None Full Exam - General 1995 Ears/Nose/Throat otoscopic exam Overall: tympanic membranes clear 07/02/2013 None Full Exam - General 1995 Ears/Nose/Throat oral cavity/pharynx/larynx Overall: oral mucosa clear 07/02/2013 None Full Exam - General 1995 Ears/Nose/Throat oral cavity/pharynx/larynx Overall: oropharyngeal mucosa clear 07/02/2013 None Full Exam - General 1995 Ears/Nose/Throat oral cavity/pharynx/larynx Overall: no masses 07/02/2013 None Full Exam - General 1994 Respiratory auscultation Overall: breath sounds clear bilaterally 07/02/2013 None Full Exam - General 1994 Respiratory respiratory effort/rhythm Overall: no retractions 07/02/2013 None Full Exam - General 1994 Respiratory respiratory effort/rhythm Overall: normal rate 07/02/2013 None Full Exam - General 1994 Cardiovascular extremities Overall: no clubbing 07/02/2013 None Full Exam - General 1994 Cardiovascular auscultation of heart Overall: regular rate 07/02/2013 None Full Exam - General 1994 Cardiovascular auscultation of heart Overall: normal heart sounds 07/02/2013 None Full Exam - General 1994 Cardiovascular auscultation of heart Overall: no murmurs 07/02/2013 None Full Exam - General 1994 Abdomen abdominal exam Overall: no tenderness 07/02/2013 None Full Exam - General 1994 Abdomen abdominal exam Overall: normal bowel sounds 07/02/2013 None Full Exam - General 1994 Lymphatic neck nodes Overall: anterior cervical chain benign 07/02/2013 None Full Exam - General 1994 Lymphatic neck nodes Overall: posterior cervical chain benign 07/02/2013 None Full Exam - General 1994 Neurologic cranial nerves Overall: crainial nerves 2 - 12 grossly intact 07/02/2013 None Full Exam - General 1994 Psychiatric orientation/consciousness Overall: oriented to person, place and time 07/02/2013 None Full Exam - General 1994 Lymphatic neck nodes Overall: posterior cervical chain benign 06/18/2013 None Full Exam - General 1994 Neurologic cranial nerves Overall: crainial nerves 2 - 12 grossly intact 06/18/2013 None Full Exam - General 1994 Psychiatric orientation/consciousness Overall: oriented to person, place and time 06/18/2013 None Full Exam - General 1994 Musculoskeletal spine, ribs and pelvis Sacroiliac joints: tender right sacroiliac joint 06/18/2013 None Full Exam - General 1994 Musculoskeletal spine, ribs and pelvis Sacroiliac joints: tender left sacroiliac joint 06/18/2013 None Full Exam - General 1994 Ears/Nose/Throat oral cavity/pharynx/larynx Overall: oral mucosa clear 06/18/2013 None Full Exam - General 1995 Ears/Nose/Throat oral cavity/pharynx/larynx Overall: oropharyngeal mucosa clear 06/18/2013 None Full Exam - General 1995 Ears/Nose/Throat oral cavity/pharynx/larynx Overall: no masses 06/18/2013 None Full Exam - General 1994 Respiratory auscultation Overall: breath sounds clear bilaterally 06/18/2013 None Full Exam - General 1994 Respiratory respiratory effort/rhythm Overall: no retractions 06/18/2013 None Full Exam - General 1994 Respiratory respiratory effort/rhythm Overall: normal rate 06/18/2013 None Full Exam - General 1994 Cardiovascular extremities Overall: no clubbing 06/18/2013 None Full Exam - General 1994 Cardiovascular auscultation of heart Overall: regular rate 06/18/2013 None Full Exam - General 1994 Cardiovascular auscultation of heart Overall: normal heart sounds 06/18/2013 None Full Exam - General 1994 Cardiovascular auscultation of heart Overall: no murmurs 06/18/2013 None Full Exam - General 1994 Abdomen abdominal exam Overall: no tenderness 06/18/2013 None Full Exam - General 1994 Abdomen abdominal exam Overall: normal bowel sounds 06/18/2013 None Full Exam - General 1994 Lymphatic neck nodes Overall: anterior cervical chain benign 06/18/2013 None Full Exam - General 1994 Constitutional general appearance Overall: well developed 06/18/2013 None Full Exam - General 1994 Constitutional general appearance Overall: in no acute distress 06/18/2013 None Full Exam - General 1994 Constitutional general appearance Overall: well nourished 06/18/2013 None Full Exam - General 1994 Eyes conjunctiva /eyelids Overall: conjunctiva clear 06/18/2013 None Full Exam - General 1994 Eyes conjunctiva /eyelids Overall: cornea clear 06/18/2013 None Full Exam - General 1994 Eyes conjunctiva /eyelids Overall: eyelids normal 06/18/2013 None Full Exam - General 1994 Eyes pupils and irises Overall: pupils equal, round, reactive to light and accomodation 06/18/2013 None Full Exam - General 1995 Ears/Nose/Throat otoscopic exam Overall: external auditory canals clear 06/18/2013 None Full Exam - General 1995 Ears/Nose/Throat otoscopic exam Overall: tympanic membranes clear 06/18/2013 None Full Exam - General 1994 Constitutional general appearance Overall: well developed 02/15/2013 None Full Exam - General 1994 Constitutional general appearance Overall: in no acute distress 02/15/2013 None Full Exam - General 1994 Constitutional general appearance Overall: well nourished 02/15/2013 None Full Exam - General 1994 Eyes conjunctiva /eyelids Overall: conjunctiva clear 02/15/2013 None Full Exam - General 1994 Eyes conjunctiva /eyelids Overall: cornea clear 02/15/2013 None Full Exam - General 1994 Eyes conjunctiva /eyelids Overall: eyelids normal 02/15/2013 None Full Exam - General 1994 Eyes pupils and irises Overall: pupils equal, round, reactive to light and accomodation 02/15/2013 None Full Exam - General 1995 Ears/Nose/Throat otoscopic exam Overall: external auditory canals clear 02/15/2013 None Full Exam - General 1995 Ears/Nose/Throat otoscopic exam Overall: tympanic membranes clear 02/15/2013 None Full Exam - General 1995 Ears/Nose/Throat oral cavity/pharynx/larynx Overall: oral mucosa clear 02/15/2013 None Full Exam - General 1995 Ears/Nose/Throat oral cavity/pharynx/larynx Overall: oropharyngeal mucosa clear 02/15/2013 None Full Exam - General 1995 Ears/Nose/Throat oral cavity/pharynx/larynx Overall: no masses 02/15/2013 None Full Exam - General 1994 Respiratory auscultation Overall: breath sounds clear bilaterally 02/15/2013 None Full Exam - General 1994 Respiratory respiratory effort/rhythm Overall: no retractions 02/15/2013 None Full Exam - General 1994 Respiratory respiratory effort/rhythm Overall: normal rate 02/15/2013 None Full Exam - General 1994 Cardiovascular extremities Overall: no clubbing 02/15/2013 None Full Exam - General 1994 Cardiovascular auscultation of heart Overall: regular rate 02/15/2013 None Full Exam - General 1994 Cardiovascular auscultation of heart Overall: normal heart sounds 02/15/2013 None Full Exam - General 1994 Cardiovascular auscultation of heart Overall: no murmurs 02/15/2013 None Full Exam - General 1994 Abdomen abdominal exam Overall: no tenderness 02/15/2013 None Full Exam - General 1994 Abdomen abdominal exam Overall: normal bowel sounds 02/15/2013 None Full Exam - General 1994 Lymphatic neck nodes Overall: anterior cervical chain benign 02/15/2013 None Full Exam - General 1994 Lymphatic neck nodes Overall: posterior cervical chain benign 02/15/2013 None Full Exam - General 1994 Neurologic cranial nerves Overall: crainial nerves 2 - 12 grossly intact 02/15/2013 None Full Exam - General 1994 Psychiatric orientation/consciousness Overall: oriented to person, place and time 02/15/2013 None Full Exam - General 1994 Psychiatric orientation/consciousness Overall: oriented to person, place and time 12/15/2012 None Full Exam - General 1994 Neurologic cranial nerves Overall: crainial nerves 2 - 12 grossly intact 12/15/2012 None Full Exam - General 1994 Lymphatic neck nodes Overall: anterior cervical chain benign 12/15/2012 None Full Exam - General 1994 Lymphatic neck nodes Overall: posterior cervical chain benign 12/15/2012 None Full Exam - General 1994 Abdomen abdominal exam Overall: no tenderness 12/15/2012 None Full Exam - General 1994 Abdomen abdominal exam Overall: normal bowel sounds 12/15/2012 None Full Exam - General 1994 Cardiovascular extremities Overall: no clubbing 12/15/2012 None Full Exam - General 1994 Cardiovascular auscultation of heart Overall: regular rate 12/15/2012 None Full Exam - General 1994 Cardiovascular auscultation of heart Overall: normal heart sounds 12/15/2012 None Full Exam - General 1994 Cardiovascular auscultation of heart Overall: no murmurs 12/15/2012 None Full Exam - General 1994 Respiratory auscultation Overall: breath sounds clear bilaterally 12/15/2012 None Full Exam - General 1994 Respiratory respiratory effort/rhythm Overall: normal rate 12/15/2012 None Full Exam - General 1994 Respiratory respiratory effort/rhythm Overall: no retractions 12/15/2012 None Full Exam - General 1995 Ears/Nose/Throat otoscopic exam Overall: tympanic membranes clear 12/15/2012 None Full Exam - General 1995 Ears/Nose/Throat otoscopic exam Overall: external auditory canals clear 12/15/2012 None Full Exam - General 1995 Ears/Nose/Throat oral cavity/pharynx/larynx Overall: oropharyngeal mucosa clear 12/15/2012 None Full Exam - General 1995 Ears/Nose/Throat oral cavity/pharynx/larynx Overall: no masses 12/15/2012 None Full Exam - General 1995 Ears/Nose/Throat oral cavity/pharynx/larynx Overall: oral mucosa clear 12/15/2012 None Full Exam - General 1994 Eyes pupils and irises Overall: pupils equal, round, reactive to light and accomodation 12/15/2012 None Full Exam - General 1994 Eyes conjunctiva /eyelids Overall: conjunctiva clear 12/15/2012 None Full Exam - General 1994 Eyes conjunctiva /eyelids Overall: eyelids normal 12/15/2012 None Full Exam - General 1995 Eyes conjunctiva /eyelids Overall: cornea clear 12/15/2012 None Full Exam - General 1994 Constitutional general appearance Overall: well nourished 12/15/2012 None Full Exam - General 1994 Constitutional general appearance Overall: well developed 12/15/2012 None Full Exam - General 1994 Constitutional general appearance Overall: in no acute distress 12/15/2012 None Full Exam - General 1995 Ears/Nose/Throat oral cavity/pharynx/larynx Overall: no masses 11/30/2012 None Full Exam - General 1994 Respiratory auscultation Overall: breath sounds clear bilaterally 11/30/2012 None Full Exam - General 1994 Respiratory respiratory effort/rhythm Overall: no retractions 11/30/2012 None Full Exam - General 1994 Respiratory respiratory effort/rhythm Overall: normal rate 11/30/2012 None Full Exam - General 1994 Cardiovascular extremities Overall: no clubbing 11/30/2012 None Full Exam - General 1994 Cardiovascular auscultation of heart Overall: regular rate 11/30/2012 None Full Exam - General 1994 Cardiovascular auscultation of heart Overall: normal heart sounds 11/30/2012 None Full Exam - General 1994 Cardiovascular auscultation of heart Overall: no murmurs 11/30/2012 None Full Exam - General 1994 Abdomen abdominal exam Overall: no tenderness 11/30/2012 None Full Exam - General 1994 Abdomen abdominal exam Overall: normal bowel sounds 11/30/2012 None Full Exam - General 1995 Lymphatic neck nodes Overall: anterior cervical chain benign 11/30/2012 None Full Exam - General 1994 Lymphatic neck nodes Overall: posterior cervical chain benign 11/30/2012 None Full Exam - General 1994 Neurologic cranial nerves Overall: crainial nerves 2 - 12 grossly intact 11/30/2012 None Full Exam - General 1994 Psychiatric orientation/consciousness Overall: oriented to person, place and time 11/30/2012 None Full Exam - General 1994 Constitutional general appearance Overall: well developed 11/30/2012 None Full Exam - General 1994 Constitutional general appearance Overall: in no acute distress 11/30/2012 None Full Exam - General 1994 Constitutional general appearance Overall: well nourished 11/30/2012 None Full Exam - General 1994 Eyes conjunctiva /eyelids Overall: conjunctiva clear 11/30/2012 None Full Exam - General 1994 Eyes conjunctiva /eyelids Overall: cornea clear 11/30/2012 None Full Exam - General 1994 Eyes conjunctiva /eyelids Overall: eyelids normal 11/30/2012 None Full Exam - General 1994 Eyes pupils and irises Overall: pupils equal, round, reactive to light and accomodation 11/30/2012 None Full Exam - General 1994 Ears/Nose/Throat otoscopic exam Overall: external auditory canals clear 11/30/2012 None Full Exam - General 1994 Ears/Nose/Throat otoscopic exam Overall: tympanic membranes clear 11/30/2012 None Full Exam - General 1994 Ears/Nose/Throat oral cavity/pharynx/larynx Overall: oral mucosa clear 11/30/2012 None Full Exam - General 1995 Ears/Nose/Throat oral cavity/pharynx/larynx Overall: oropharyngeal mucosa clear 11/30/2012 None Procedures Procedure Codes Date TRIAMCINOLONE ACET INJ NOS CPT-4: J3301 04/13/2016 TRIAMCINOLONE ACET INJ NOS CPT-4: J3301 12/12/2014 THER/PROPH/DIAG INJ SC/IM CPT-4: 06999 12/12/2014 FLU VACC 4 CECILIA 3 YRS PLUS IM SNOMED CT: [id number] CPT-4: 72388 07/03/2014 ADMIN INFLUENZA VIRUS VAC Assigned to/Lorraine White CPT-4: [id number] 07/03/2014 ROUTINE VENIPUNCTURE CPT-4: 82552 12/04/2013 TRIAMCINOLONE ACET INJ NOS CPT-4: J3301 12/04/2013 THER/PROPH/DIAG INJ SC/IM CPT-4: 86255 12/04/2013 ROUTINE VENIPUNCTURE CPT-4: 01772 07/02/2013 THER/PROPH/DIAG INJ SC/IM CPT-4: 80504 07/02/2013 PROMETHAZINE HCL INJECTION CPT-4: J2550 07/02/2013 PRESCRIP TRANSMIT VIA ERX SY CPT-4: G8553 07/02/2013 TRIAMCINOLONE ACET INJ NOS CPT-4: J3301 06/18/2013 THER/PROPH/DIAG INJ SC/IM CPT-4: 05123 06/18/2013 URINALYSIS NONAUTO W/O SCOPE CPT-4: 79232 06/18/2013 PRESCRIP TRANSMIT VIA ERX SY CPT-4: G8553 06/18/2013 VITAMIN B12 INJECTION CPT-4: J3420 02/15/2013 PRESCRIP TRANSMIT VIA ERX SY CPT-4: G8553 02/15/2013 ROUTINE VENIPUNCTURE CPT-4: 83078 12/05/2012 PRESCRIP TRANSMIT VIA ERX SY CPT-4: G8553 11/30/2012 Vital Signs Date Vital 10/18/2017 Blood Pressure 1: 134/84 Code : 8480-6 BMI: 29.0 Code : 72544-2 Heart Rate 1 : 71 bpm Height: 5'5" SpO2: 98% Weight: 174 lbs 08/31/2017 Blood Pressure 1: 134/76 Code : 8480-6 BMI: 29.5 Code : 40559-8 Heart Rate 1 : 78 bpm Height: 5'5" SpO2: 96% Weight: 177 lbs 06/21/2017 Blood Pressure 1: 136/82 Code : 8480-6 BMI: 29.6 Code : 33422-8 Heart Rate 1 : 76 bpm Height: 5'5" SpO2: 98% Weight: 178 lbs 06/14/2017 Blood Pressure 1: 132/74 Code : 8480-6 BMI: 29.0 Code : 87302-9 Heart Rate 1 : 71 bpm Height: 5'5" SpO2: 97% Weight: 174 lbs 05/13/2017 Blood Pressure 1: 122/80 Code : 8480-6 BMI: 29.6 Code : 83719-6 Heart Rate 1 : 88 bpm Height: 5'5" SpO2: 97% Temperature: 37.1 (C) / 98.7 (F) Weight: 178 lbs 11/30/2016 Blood Pressure 1: 136/70 Code : 8480-6 BMI: 31.6 Code : 17099-8 Heart Rate 1 : 74 bpm Height: 5'5" SpO2: 96% Weight: 190 lbs 11/16/2016 Blood Pressure 1: 124/76 Code : 8480-6 BMI: 32.1 Code : 50609-7 Heart Rate 1 : 94 bpm Height: 5'5" SpO2: 97% Weight: 193 lbs 06/10/2016 Blood Pressure 1: 128/86 Code : 8480-6 BMI: 30.3 Code : 62451-1 Heart Rate 1 : 88 bpm Height: 5'5" SpO2: 98% Weight: 182 lbs 04/13/2016 Blood Pressure 1: 102/56 Code : 8480-6 BMI: 30.5 Code : 52509-1 Heart Rate 1 : 63 bpm Height: 5'5" SpO2: 94% Weight: 183 lbs 03/22/2016 Blood Pressure 1: 138/78 Code : 8480-6 BMI: 30.5 Code : 00822-5 Heart Rate 1 : 63 bpm Height: 5'5" SpO2: 97% Weight: 183 lbs 03/02/2016 Blood Pressure 1: 122/72 Code : 8480-6 BMI: 30.8 Code : 14261-1 Heart Rate 1 : 71 bpm Height: 5'5" SpO2: 97% Weight: 185 lbs 02/23/2016 Blood Pressure 1: 146/86 Code : 8480-6 BMI: 30.3 Code : 37842-1 Heart Rate 1 : 100 bpm Height: 5'5" SpO2: 98% Weight: 182 lbs 01/09/2016 Blood Pressure 1: 138/74 Code : 8480-6 BMI: 31.6 Code : 15588-2 Heart Rate 1 : 83 bpm Height: 5'5" SpO2: 95% Weight: 190 lbs 12/09/2015 Blood Pressure 1: 140/70 Code : 8480-6 BMI: 30.5 Code : 39364-1 Heart Rate 1 : 73 bpm Height: 5'5" SpO2: 93% Weight: 183 lbs 11/14/2015 Blood Pressure 1: 174/84 Code : 8480-6 Blood Pressure 1: 156/84 Code: 8480-6 BMI: 31.6 Code: 14987-2 Heart Rate 1: 70 bpm Height: 5'5" SpO2: 97% Weight: 190 lbs 10/31/2015 Blood Pressure 1: 138/80 Code : 8480-6 BMI: 31.5 Code : 10342-5 Heart Rate 1 : 82 bpm Height: 5'5" SpO2: 98% Weight: 189 lbs 12/12/2014 Blood Pressure 1: 150/80 Code : 8480-6 BMI: 30.1 Code : 79064-4 Heart Rate 1 : 68 bpm Height: 5'5" Weight: 181 lbs 11/11/2014 Blood Pressure 1: 132/84 Code : 8480-6 BMI: 31.0 Code : 64786-1 Heart Rate 1 : 72 bpm Height: 5'5" Weight: 186 lbs 07/03/2014 Blood Pressure 1: 128/88 Code : 8480-6 BMI: 31.8 Code : 77129-6 Heart Rate 1 : 84 bpm Height: 5'5" SpO2: 96% Weight: 191 lbs 12/04/2013 Blood Pressure 1: 124/90 Code : 8480-6 BMI: 31.5 Code : 37332-5 Heart Rate 1 : 84 bpm Height: 5'5" Weight: 189 lbs 11/13/2013 Blood Pressure 1: 124/78 Code : 8480-6 BMI: 31.5 Code : 41766-0 Heart Rate 1 : 72 bpm Height: 5'5" Weight: 189 lbs 07/16/2013 Blood Pressure 1: 136/82 Code : 8480-6 BMI: 31.0 Code : 18642-6 Heart Rate 1 : 80 bpm Height: 5'5" Weight: 186 lbs 07/02/2013 Blood Pressure 1: 118/84 Code : 8480-6 BMI: 30.1 Code : 87553-7 Heart Rate 1 : 84 bpm Height: 5'5" SpO2: 98% Temperature: 36.3 (C) / 97.3 (F) Weight: 181 lbs 06/18/2013 Blood Pressure 1: 134/80 Code : 8480-6 BMI: 30.5 Code : 45431-6 Heart Rate 1 : 80 bpm Height: 5'5" Temperature: 36.1 (C) / 97.0 (F) Weight: 183 lbs 02/15/2013 Blood Pressure 1: 136/82 Code : 8480-6 BMI: 30.6 Code : 91488-7 Heart Rate 1 : 84 bpm Height: 5'5" Respiratory Rate: 16 bpm Weight: 184 lbs 12/15/2012 Blood Pressure 1: 140/78 Code : 8480-6 BMI: 31.5 Code : 45449-5 Heart Rate 1 : 68 bpm Height: 5'5" Weight: 189 lbs 11/30/2012 Blood Pressure 1: 132/70 Code : 8480-6 BMI: 31.7 Code : 39740-3 Heart Rate 1 : 84 bpm Height: 5'5" Respiratory Rate: 20 bpm Weight: 190 lbs 5 oz Functional Status No Functional Status data History of Present Illness Symptom Name Status Result Effective Date Notes anxiety Onset and Resolution ongoing 10/18/2017 None anxiety Alleviating Factors medication 10/18/2017 None depression Onset and Resolution ongoing 10/18/2017 None depression Alleviating Factors medication 10/18/2017 None medication follow up Location oral intake 08/31/2017 None medication follow up Quality chronic 08/31/2017 None medication follow up Additional Comments medication use 06/21/2017 None medication follow up Location oral intake 06/21/2017 None fatigue Limitation on Activities moderately limits activities 06/14/2017 None fatigue Onset of Symptom 4 months ago 06/14/2017 None fatigue Frequency of Episodes daily 06/14/2017 None fatigue Quality constant 06/14/2017 None fatigue Onset and Resolution gradual in onset 06/14/2017 None depression Quality chronic 06/14/2017 None depression Quality worsening 06/14/2017 None depression Onset and Resolution ongoing 06/14/2017 None depression Limitation on Activities moderately limits activities 06/14/2017 None depression Pertinent Findings Denies self -harm 06/14/2017 None depression Pertinent Findings Denies suicidal ideation 06/14/2017 None abdominal pain Location diffusely 05/13/2017 None abdominal pain Quality aching 05/13/2017 None abdominal pain Quality constant 05/13/2017 None abdominal pain Quality cramping 05/13/2017 None nausea Quality intermittent 05/13/2017 None nausea Onset and Resolution sudden in onset 05/13/2017 None diarrhea Quality loose 05/13/2017 None diarrhea Quality intermittent 05/13/2017 None diarrhea Onset and Resolution sudden in onset 05/13/2017 None abdominal pain Onset and Resolution ongoing 05/13/2017 None abdominal pain Onset of Symptom during adulthood 05/13/2017 None abdominal pain Limitation on Activities does not limit activities 05/13/2017 None abdominal pain Frequency of Episodes unchanged 05/13/2017 None abdominal pain Length of Episodes _ hours 05/13/2017 None psoriasis Alleviating Factors prescription medication 11/30/2016 None psoriasis Frequency of Episodes daily 11/30/2016 None psoriasis Onset of Symptom 6 months ago 11/30/2016 None psoriasis Quality constant 11/30/2016 None psoriasis Alleviating Factors prescription medication 11/16/2016 None psoriasis Frequency of Episodes daily 11/16/2016 None psoriasis Onset of Symptom 6 months ago 11/16/2016 None psoriasis Prior Treatments prescription medications 11/16/2016 None psoriasis Quality constant 11/16/2016 None joint complaint Location in both hips 06/10/2016 None joint complaint Location on both elbows 06/10/2016 both hands joint complaint Location on both knees 06/10/2016 None joint complaint Location on both shoulders 06/10/2016 None joint complaint Onset of Symptom _ months ago 06/10/2016 None joint complaint Limitation on Activities moderately limits activities 06/10/2016 None joint complaint Frequency of Episodes daily 06/10/2016 None joint complaint Pertinent Findings limitation of motion 06/10/2016 None joint complaint Location diffusely 04/13/2016 None joint complaint Quality aching 04/13/2016 None joint complaint Quality constant 04/13/2016 None joint complaint Quality dull pain 04/13/2016 None joint complaint Onset and Resolution sudden in onset 04/13/2016 None muscle weakness Location diffusely 04/13/2016 None muscle weakness Onset and Resolution gradual in onset 04/13/2016 None muscle weakness Onset of Symptom _ years ago 04/13/2016 None muscle weakness Frequency of Episodes daily 04/13/2016 None muscle weakness Quality both sides 04/13/2016 None muscle weakness Quality lower extremities 04/13/2016 None muscle weakness Quality upper extremities 04/13/2016 None muscle weakness Limitation on Activities moderately limits activities 04/13/2016 None muscle weakness Triggers no known associated factors 04/13/2016 None wrist pain Location on the right 03/22/2016 None wrist pain Location in the radial region 03/22/2016 None wrist pain Quality sharp pain 03/22/2016 None wrist pain Quality throbbing 03/22/2016 None wrist pain Quality burning sensation 03/22/2016 None wrist pain Quality acute 03/22/2016 None wrist pain Onset and Resolution ongoing 03/22/2016 None wrist pain Limitation on Activities is incapacitating 03/22/2016 None wrist pain Severity severe 03/22/2016 None wrist pain Exacerbating Factors dorsiflexion 03/22/2016 None wrist pain Exacerbating Factors palmar flexion 03/22/2016 None wrist pain Exacerbating Factors wrist motion 03/22/2016 None wrist pain Pertinent Findings Denies bruising 03/22/2016 None wrist pain Pertinent Findings decreased range of motion 03/22/2016 None wrist pain Pertinent Findings pain with movement 03/22/2016 None wrist pain Pertinent Findings Denies swelling 03/22/2016 None wrist pain Pertinent Findings Denies warmth 03/22/2016 None depression Onset and Resolution gradual in onset 03/22/2016 None depression Limitation on Activities moderately limits activities 03/22/2016 None depression Frequency of Episodes daily 03/22/2016 None depression Pertinent Findings depressed mood 03/22/2016 None rash Quality recurrent 03/22/2016 None rash Onset and Resolution ongoing 03/22/2016 None rash Limitation on Activities does not limit activities 03/22/2016 None rash Pertinent Findings itching 03/22/2016 None rash Pertinent Findings pain 03/22/2016 None wrist pain Quality improving 03/22/2016 None wrist pain Limitation on Activities moderately limits activities 03/22/2016 None depression Onset and Resolution ongoing 03/22/2016 None depression Quality improving 03/22/2016 None rash Onset of Symptom months ago 03/22/2016 None rash Severity improving 03/22/2016 None rash Alleviating Factors treatment medication 03/22/2016 None wrist pain Location on the right 03/02/2016 None wrist pain Location in the radial region 03/02/2016 None wrist pain Quality sharp pain 03/02/2016 None wrist pain Quality throbbing 03/02/2016 None wrist pain Quality burning sensation 03/02/2016 None wrist pain Quality acute 03/02/2016 None wrist pain Onset and Resolution ongoing 03/02/2016 None wrist pain Limitation on Activities is incapacitating 03/02/2016 None wrist pain Severity severe 03/02/2016 None wrist pain Exacerbating Factors dorsiflexion 03/02/2016 None wrist pain Exacerbating Factors palmar flexion 03/02/2016 None wrist pain Exacerbating Factors wrist motion 03/02/2016 None wrist pain Pertinent Findings Denies bruising 03/02/2016 None wrist pain Pertinent Findings decreased range of motion 03/02/2016 None wrist pain Pertinent Findings pain with movement 03/02/2016 None wrist pain Pertinent Findings Denies swelling 03/02/2016 None wrist pain Pertinent Findings Denies warmth 03/02/2016 None rash Onset and Resolution ongoing 03/02/2016 None rash Limitation on Activities does not limit activities 03/02/2016 None depression Onset and Resolution gradual in onset 03/02/2016 None depression Onset of Symptom 2 months ago 03/02/2016 None depression Limitation on Activities moderately limits activities 03/02/2016 None depression Frequency of Episodes daily 03/02/2016 None depression Pertinent Findings depressed mood 03/02/2016 None rash Quality recurrent 03/02/2016 None rash Onset of Symptom 5 months ago 03/02/2016 None rash Severity worsening 03/02/2016 None rash Pertinent Findings pain 03/02/2016 None rash Pertinent Findings itching 03/02/2016 None wrist pain Location on the right 02/23/2016 None wrist pain Location in the radial region 02/23/2016 None wrist pain Quality sharp pain 02/23/2016 None wrist pain Quality acute 02/23/2016 None wrist pain Quality burning sensation 02/23/2016 None wrist pain Quality throbbing 02/23/2016 None wrist pain Onset and Resolution ongoing 02/23/2016 None wrist pain Limitation on Activities is incapacitating 02/23/2016 None wrist pain Severity severe 02/23/2016 None wrist pain Severity moderate 02/23/2016 None wrist pain Mechanism of injury unknown 02/23/2016 None wrist pain Exacerbating Factors wrist motion 02/23/2016 None wrist pain Exacerbating Factors palmar flexion 02/23/2016 None wrist pain Exacerbating Factors dorsiflexion 02/23/2016 None wrist pain Pertinent Findings decreased range of motion 02/23/2016 None wrist pain Pertinent Findings pain with movement 02/23/2016 None wrist pain Pertinent Findings Denies swelling 02/23/2016 None wrist pain Pertinent Findings Denies warmth 02/23/2016 None wrist pain Pertinent Findings Denies bruising 02/23/2016 None rash Quality acute 05/2016 None rash Onset and Resolution ongoing 01/09/2016 None rash Onset of Symptom 1 month ago 01/09/2016 None rash Limitation on Activities does not limit activities 01/09/2016 None rash Severity improving 01/09/2016 None rash Triggers no known triggers 01/09/2016 None depression Onset and Resolution gradual in onset 01/09/2016 None depression Onset of Symptom 2 months ago 01/09/2016 None depression Limitation on Activities moderately limits activities 01/09/2016 None depression Frequency of Episodes daily 01/09/2016 None depression Pertinent Findings depressed mood 01/09/2016 None Hospital Follow Up Frequency of Episodes 1.5 weeks 12/09/2015 None Hospital Follow Up Pertinent Findings pain 12/09/2015 None rash Quality acute 09/2016 None rash Onset and Resolution ongoing 11/14/2015 None rash Onset of Symptom 1 month ago 11/14/2015 None rash Limitation on Activities does not limit activities 11/14/2015 None rash Severity improving 11/14/2015 None rash Triggers no known triggers 11/14/2015 None depression Onset and Resolution gradual in onset 11/14/2015 None depression Onset of Symptom 2 months ago 11/14/2015 None depression Limitation on Activities moderately limits activities 11/14/2015 None depression Frequency of Episodes daily 11/14/2015 None depression Pertinent Findings depressed mood 11/14/2015 None rash Location-Trunk on both breasts 10/31/2015 None rash Location-Trunk in the right groin area 10/31/2015 None rash Location-Trunk in the left groin area 10/31/2015 None depression Onset and Resolution gradual in onset 10/31/2015 None depression Onset of Symptom 2 months ago 10/31/2015 None depression Limitation on Activities moderately limits activities 10/31/2015 None depression Frequency of Episodes daily 10/31/2015 None depression Pertinent Findings depressed mood 10/31/2015 None rash Quality acute None rash Onset and Resolution ongoing 10/31/2015 None rash Color erythematous 10/31/2015 None rash Onset of Symptom 1 month ago 10/31/2015 None rash Limitation on Activities does not limit activities 10/31/2015 None rash Prior Treatments unresponsive to treatment 10/31/2015 None rash Severity improving 10/31/2015 None rash Triggers no known triggers 10/31/2015 None Hospital Follow Up _ Other: _ 12/12/2014 acid reflux. Had 3 Nitro and Morphine and her pain subsided. Was also given some type of liquid for acid reflux. Hospital Follow Up Onset of Symptom _ weeks ago 12/12/2014 happened last Tuesday. Was not admitted, just went to ER. Hospital Follow Up Pertinent Findings pain 12/12/2014 still has pain in left arm , from shoulder down to forearm, but bearable. Also having pain in right upper arm. rash Location-Major on the abdomen 11/11/2014 lower right side under skin fold rash Location-Trunk on the upper chest 11/11/2014 under both breasts rash Onset of Symptom _ weeks ago 11/11/2014 None rash Pertinent Findings Denies fever 11/11/2014 None rash Pertinent Findings itching 11/11/2014 None rash Pertinent Findings pain 11/11/2014 reports blistering under left breast ~generic Location diffusely 11/11/2014 reports excessive sweating. ~generic Onset and Resolution ongoing 11/11/2014 None ~generic Pertinent Findings Denies fever 11/11/2014 None rash Quality acute 06/2015 None rash Quality recurrent 11/11/2014 None rash Quality worsening 11/11/2014 None rash Quality enlarging 11/11/2014 None rash Onset and Resolution sudden in onset 11/11/2014 None rash Limitation on Activities does not limit activities 11/11/2014 None rash Severity worsening 11/11/2014 None rash Pertinent Findings history of similar rash 11/11/2014 None rash Pertinent Findings tenderness 11/11/2014 None diaphoresis Quality intermittent 07/03/2014 None diaphoresis Onset and Resolution ongoing 07/03/2014 None diaphoresis Severity severe 07/03/2014 None diaphoresis Triggers no known associated factors 07/03/2014 None diaphoresis Pertinent Findings Denies dizziness 07/03/2014 None diaphoresis Pertinent Findings dyspnea 07/03/2014 None rash Color pink 2013 None rash Pertinent Findings itching 07/03/2014 None rash Pertinent Findings Denies pain 07/03/2014 None rash Quality acute 01/2014 None rash Quality recurrent 12/04/2013 None rash Quality worsening 12/04/2013 None rash Quality enlarging 12/04/2013 None rash Onset and Resolution sudden in onset 12/04/2013 None rash Onset of Symptom _ weeks ago 12/04/2013 None rash Limitation on Activities does not limit activities 12/04/2013 None rash Severity worsening 12/04/2013 None rash Pertinent Findings history of similar rash 12/04/2013 None rash Pertinent Findings Denies itching 12/04/2013 None rash Pertinent Findings tenderness 12/04/2013 None hip pain Location on the left 12/04/2013 None hip pain Quality sharp pain 12/04/2013 None hip pain Quality worsening 12/04/2013 None hip pain Severity moderate 12/04/2013 None hip pain Radiating radiates down the leg to the foot 12/04/2013 None hip pain Location in the posterior region 12/04/2013 None hip pain Location in the buttocks 12/04/2013 None hip pain Pertinent Findings Denies bruising 12/04/2013 None hip pain Pertinent Findings decreased range of motion 12/04/2013 None hip pain Pertinent Findings straight leg raise pain 12/04/2013 None rash Location-Major on the chest 11/13/2013 None rash Location-Major on the abdomen 11/13/2013 UNDER FOLDS rash Quality acute 08/2014 None rash Color pink 2013 None rash Color red 2013 None rash Onset and Resolution sudden in onset 11/13/2013 None rash Quality recurrent 11/13/2013 None rash Quality worsening 11/13/2013 None rash Quality enlarging 11/13/2013 None rash Pertinent Findings tenderness 11/13/2013 None rash Pertinent Findings Denies itching 11/13/2013 None rash Pertinent Findings history of similar rash 11/13/2013 None rash Onset of Symptom _ weeks ago 11/13/2013 None rash Limitation on Activities does not limit activities 11/13/2013 None rash Severity worsening 11/13/2013 None medication follow up Location oral intake 07/16/2013 estradiol. patient states she is feeling much better. very happy with outcome. medication follow up Additional Comments medication use 07/16/2013 None nausea Onset and Resolution sudden in onset 07/02/2013 None nausea Onset of Symptom 3 days ago 07/02/2013 None nausea Severity moderate 07/02/2013 None nausea Pertinent Findings Denies bloating 07/02/2013 None nausea Pertinent Findings chills 07/02/2013 None back pain Location lumbar-sacral spine 07/02/2013 None back pain Quality improving 07/02/2013 unless she moves quickly back pain Severity mild 07/02/2013 None headache Location diffusely 07/02/2013 None headache Quality acute 07/02/2013 None headache Onset and Resolution sudden in onset 07/02/2013 None headache Onset of Symptom 2 days ago 07/02/2013 None headache Pertinent Findings anxiety 07/02/2013 None headache Pertinent Findings depressed mood 07/02/2013 None headache Pertinent Findings lethargy 07/02/2013 None headache Pertinent Findings nausea 07/02/2013 None headache Pertinent Findings sleep disturbance 07/02/2013 None headache Pertinent Findings weakness 07/02/2013 None headache Pertinent Findings Denies syncope 07/02/2013 but feels like she could pass out back pain Location lumbar-sacral spine 06/18/2013 None back pain Quality acute 06/18/2013 None back pain Onset and Resolution sudden in onset 06/18/2013 None back pain Quality throbbing 06/18/2013 None back pain Quality sharp 06/18/2013 None back pain Quality radiating 06/18/2013 down both legs back pain Pertinent Findings extremity numbness 06/18/2013 right side of thigh back pain Onset of Symptom 3 days ago 06/18/2013 None dyspepsia Quality upset stomach 02/15/2013 None dyspepsia Quality worsening 02/15/2013 took carafate and was nauseated all the time. taking omeprazole and it only takes the edge off dyspepsia Onset and Resolution ongoing 02/15/2013 None dyspepsia Pertinent Findings nausea 02/15/2013 None fatigue Quality worsening 02/15/2013 states she doesn't want to get out [facility] depression Quality chronic 02/15/2013 None depression Quality worsening 02/15/2013 thinks cymbalta isn't working dyspepsia Severity severe 02/15/2013 None dyspepsia Significant Medical Conditions acid reflux 02/15/2013 None dyspepsia Triggers meals 02/15/2013 None hyperlipidemia Onset of Symptom during adulthood 12/15/2012 None hyperlipidemia Triggers no known associated factors 12/15/2012 None hyperlipidemia Exacerbating Factors diet 12/15/2012 None hyperlipidemia Pertinent Findings Denies nausea 12/15/2012 None hyperlipidemia Pertinent Findings obesity 12/15/2012 None hyperlipidemia Pertinent Findings Denies vomiting 12/15/2012 None hyperlipidemia Quality decreased HDL 12/15/2012 None hyperlipidemia Quality increased TG 12/15/2012 None hyperlipidemia Onset and Resolution ongoing 12/15/2012 None fatigue Onset and Resolution gradual in onset 11/30/2012 None fatigue Onset of Symptom 1 1/2 months ago 11/30/2012 None gastroesophageal reflux Quality chronic 11/30/2012 None gastroesophageal reflux Onset and Resolution ongoing 11/30/2012 state omeprazole isnt working depression Quality chronic 11/30/2012 None depression Onset and Resolution ongoing 11/30/2012 states cymbalta is working now depression Triggers no known associated factors 11/30/2012 None depression Pertinent Findings Denies anxiety 11/30/2012 None depression Pertinent Findings depressed mood 11/30/2012 None depression Pertinent Findings sleep disturbance 11/30/2012 None Advance Directives No Advance Directive data Encounters Encounter Performer Location Codes Date EST. PATIENT, LEVEL III Diagnosis: Generalized anxiety disorder[ICD10: F41.1] Diagnosis: Major depressive disorder, single episode, moderate[ICD10: F32.1] Diagnosis: Other psoriasis[ICD10: L40.8] Diagnosis: Periapical abscess without sinus[ICD10: K04.7] Cydney Sheridan MD, [facility] CPT-4: 68784 10/18/2017 [id number] EST. PATIENT, LEVEL III Diagnosis: Gastro-esophageal reflux disease without esophagitis[ICD10: K21.9] Diagnosis: Generalized anxiety disorder[ICD10: F41.1] Diagnosis: Major depressive disorder, single episode, moderate[ICD10: F32.1] Diagnosis: Other psoriasis[ICD10: L40.8] Cydney Sheridan MD, [facility] CPT-4 : 67809 08/31/2017 93783 EST. PATIENT, LEVEL III Diagnosis: Gastro-esophageal reflux disease without esophagitis[ICD10: K21.9] Diagnosis: Generalized anxiety disorder[ICD10: F41.1] Diagnosis: Major depressive disorder, single episode, moderate[ICD10: F32.1] Cydney Sheridan MD, [facility] CPT-4: 66602 06/21/2017 94205 EST. PATIENT, LEVEL IV Diagnosis: Other psoriasis[ICD10: L40.8] Diagnosis: Major depressive disorder, single episode, unspecified[ICD10: F32.9] Diagnosis: Other pruritus[ICD10: L29.8] Diagnosis: Gastro-esophageal reflux disease without esophagitis[ICD10: K21.9] Cydney Sheridan MD, [facility] CPT-4: 40229 06/14/2017 ([id number]) 82111 EST. PATIENT, LEVEL IV Diagnosis: Generalized abdominal pain[ICD10: R10.84] Diagnosis: Infectious gastroenteritis and colitis, unspecified[ICD10: A09] Diagnosis: Nausea[ICD10: R11.0] Ingrid Sheridan MD, [facility] CPT-4: 59999 05/13/2017 30337 EST. PATIENT, LEVEL III Diagnosis: Other psoriasis[ICD10: L40.8] Cydney Sheridan MD, [facility] CPT-4 : 39922 11/30/2016 75028 EST. PATIENT, LEVEL IV Diagnosis: Other psoriasis[ICD10: L40.8] Cydney Sheridan MD, [facility] CPT-4 : 20350 11/16/2016 ([id number]) 31828 EST. PATIENT, LEVEL III Diagnosis: Primary generalized (osteo)arthritis[ICD10: M15.0] Diagnosis: Other chronic pain[ICD10: G89.29] Ingrid Sheridan MD, [facility] CPT-4: 18003 06/10/2016 ([id number]) 59247 EST. PATIENT, LEVEL IV Diagnosis: Muscle weakness (generalized)[ICD10: M62.81] Diagnosis: Pain in right hand[ICD10: M79.641] Diagnosis: Pain in left hand[ICD10: M79.642] Diagnosis: Major depressive disorder, single episode, unspecified[ICD10: F32.9] Ingrid Sheridan MD, [facility] CPT-4: 22153 04/13/2016 ([id number]) 32536 EST. PATIENT, LEVEL III Diagnosis: Vitamin D deficiency, unspecified[ICD10: E55.9] Diagnosis: Cellulitis of chest wall[ICD10: L03.313] Abril Sheridan MD, [facility] CPT-4: 37020 03/22/2016 ([id number]) 35204 EST. PATIENT, LEVEL IV Diagnosis: Cellulitis of chest wall[ICD10: L03.313] Diagnosis: Pain in right wrist[ICD10: M25.531] Diagnosis: Muscle weakness (generalized)[ICD10: M62.81] Diagnosis: Major depressive disorder, single episode, unspecified[ICD10: F32.9] Abril Sheridan MD, [facility] CPT-4: 45777 03/02/2016 36918 EST. PATIENT, LEVEL IV Diagnosis: Pain in right wrist[ICD10: M25.531] Diagnosis: Tinea corporis[ICD10: B35.4] Diagnosis: Major depressive disorder, single episode, unspecified[ICD10: F32.9] Diagnosis: Vitamin D deficiency, unspecified[ICD10: E55.9] Cydney Sheridan MD, [facility] CPT-4: 76698 02/23/2016 ([id number]) 20724 EST. PATIENT, LEVEL III Diagnosis: Tinea corporis[ICD10: B35.4] Diagnosis: Pain in right wrist[ICD10: M25.531] Ingrid Sheridan MD, [facility] CPT-4: 55587 01/09/2016 ([id number]) 29231 EST. PATIENT, LEVEL III Diagnosis: Tinea corporis[ICD10: B35.4] Diagnosis: Nausea[ICD10: R11.0] Ingrid Sheridan MD, [facility] CPT-4: 52868 12/09/2015 ([id number]) 23298 EST. PATIENT, LEVEL III Diagnosis: Tinea corporis[ICD10: B35.4] Diagnosis: Rash and other nonspecific skin eruption[ICD10: R21] Ingrid Sheridan MD, [facility] CPT-4: 21906 11/14/2015 ([id number]) 96895 EST. PATIENT, LEVEL IV Diagnosis: Tinea corporis[ICD10: B35.4] Diagnosis: Rash and other nonspecific skin eruption[ICD10: R21] Diagnosis: Major depressive disorder, single episode, unspecified[ICD10: F32.9] Diagnosis: Vitamin B12 deficiency anemia, unspecified[ICD10: D51.9] Diagnosis: Vitamin D deficiency, unspecified[ICD10: E55.9] Diagnosis: Mixed hyperlipidemia[ICD10: E78.2] Ingrid Sheridan MD, [facility] CPT-4: 33323 10/31/2015 ([id number]) 11987 EST. PATIENT, LEVEL III Diagnosis: Biceps tendonitis[ICD9: 726.12] Abril Sheridan MD, [facility] CPT- 4: 09147 12/12/2014 ([id number]) 11526 EST. 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 PATIENT, LEVEL IV Diagnosis: Sleep-disordered breathing[ICD9: 780.59] Diagnosis: Fatigue[ICD9: 780.79] Diagnosis: Diaphoresis[ICD9: 780.8] Diagnosis: Tinea corporis[ICD9: 110.5] Abril Sheridan MD, [facility] CPT- 4: 86263 07/03/2014 ([id number]) 26495 EST. PATIENT, LEVEL IV Diagnosis: HYPERLIPIDEMIA[ICD9: 272.4] Diagnosis: DEPRESSIVE DISORDER NEC[ICD9: 311] Diagnosis: Rash[ICD9: 782.1] Diagnosis: Sciatica[ICD9: 724.3] Abril Sheridan MD, [facility] CPT-4: 86227 12/04/2013 ([id number]) 56709 EST. PATIENT, LEVEL III Diagnosis: Tinea corporis[ICD9: 110.5] Ingrid Sheridan MD, [facility] CPT-4: 50989 11/13/2013 ([id number]) 39445 EST. PATIENT, LEVEL III Diagnosis: ESOPHAGEAL REFLUX[ICD9: 530.81] Diagnosis: Post menopausal syndrome[ICD9: V49.81] Abril Sheridan MD, [facility] CPT-4: 54695 07/16/2013 ([id number]) 43147 EST. PATIENT, LEVEL IV Diagnosis: ESOPHAGEAL REFLUX[ICD9: 530.81] Diagnosis: MALAISE AND FATIGUE[ICD9: 780.79] Diagnosis: Abdominal pain[ICD9: 789.00] Diagnosis: B12 DEFIC ANEMIA NEC[ICD9: 281.1] Abril Sheridan MD, [facility] CPT-4: 98068 07/02/2013 ([id number]) 09182 EST. PATIENT, LEVEL III Diagnosis: Acute back pain[ICD9: 724.5] Diagnosis: Chills[ICD9: 780.64] Diagnosis: Acute oral pain[ICD9: 528.9] Abril Sheridan MD, [facility] CPT- 4: 57798 06/18/2013 67333 EST. PATIENT, LEVEL IV Diagnosis: ESOPHAGEAL REFLUX[ICD9: 530.81] Diagnosis: VITAMIN D DEFICIENCY[ICD9: 268.9] Diagnosis: Vitamin B12 deficiency[ICD9: 266.2] Diagnosis: Vitamin B12 deficiency (dietary) anemia[ICD9: 281.1] Diagnosis: DEPRESSIVE DISORDER NEC[ICD9: 311] [facility] CPT-4: 87448 02/15/2013 ([id number]) 90612 EST. PATIENT, LEVEL IV Diagnosis: Hyperlipidemia[ICD9: 272.4] Diagnosis: VITAMIN D DEFICIENCY[ICD9: 268.9] Diagnosis: Elevated blood sugar[ICD9: 790.29] Diagnosis: Elevated blood pressure[ICD9: 796.2] Diagnosis: MALAISE AND FATIGUE[ICD9: 780.79] Ingrid [facility] CPT-4: 45292 12/15/2012 [id number]) 52610 EST. PATIENT, LEVEL III Diagnosis: ESOPHAGEAL REFLUX[ICD9: 530.81] Diagnosis: DEPRESSIVE DISORDER NEC[ICD9: 311] [facility] CPT-4: 32032 11/30/2012 Plan of Care Planned Activity Notes Codes Status Date Visit Plan: Chronic Depression and anxiety - the pt has symptoms of chronic anxiety and depression that have been fairly well controlled since the last office visit. The pt has expected periods of exacerbation with abatement of the symptoms with change in situational exposure. No change in current medications. 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 The pt has expected periods of exacerbation with abatement of the symptoms with change in situational exposure. Esophageal Reflux - the patient has been counseled against excessive intake of caffeine, spicy foods, peppermint, and cinnamon - all of which can exacerbate esophageal reflux. The patient is to take medications as prescribed and call the office if the symptoms are not improving. Psoriasis - will send RX - pt is to follow up with her specialist. The patient is to call for any change in symptoms, increase in size of the lesion, increase in pain, worsening redness , warmth, discharge. 08/31/2017 Appointment: Cydney Gilbert [facility]Ptel[facility] [address] [facility] [place] (15 min) Moderate 08/31/2017 Patient Education: Patient Medication Summary Completed 08/31/2017 Referral: Raghav Perales Referral Initiated 07/11/2017 Referral: Raghav Perlaes pt scheduled Initiated 06/27/2017 Visit Plan: Esophageal Reflux - the patient has been counseled against excessive intake of caffeine, spicy foods, peppermint, and cinnamon - all of which can exacerbate esophageal reflux. The patient is to take medications as prescribed and call the office if the symptoms are not improving. Anxiety - the patient has uncontrolled anxiety and will benefit from an SSRI on a daily basis to attempt control of the symptoms of anxiety ( tachycardia, overwhelming sensations, stress, insomnia, etc). Pt is aware of the risks and benefits of treatment with the above medications. Depression - uncontrolled - Pt has been counseled about the diagnosis of depression, the potential causes, and risks associated with the diagnosis. The pt denies suicidal ideation, or plans. The patient has been counseled about treatment options, and understands the risks associated with treatment of depression, as well as the risks associated with NOT treating the depression. I believe the pt will benefit from medical intervention and an antidepressant has been appropriately prescribed for this patient. 06/21/2017 Appointment: Cydney Gilbert WPtel: [phone] [facility] [place] (30 min) Complex 06/21/2017 Patient Education: Patient Medication Summary Completed 06/21/2017 Care Plan: Referral Order SNOMED-CT : 446242472 Pending 06/19/2017 Visit Plan: Psoriasis - Defer to Dermatology - pt is to notify clinic with changes in treatment plan. Pruritis - will send RX - pt is to notify clinic if symptoms do not improve, if they worsen, or with any changes , questions, or concerns. Depression - uncontrolled - Pt has been counseled about the diagnosis of depression, the potential causes, and risks associated with the diagnosis. The pt denies suicidal ideation, or plans. The patient has been counseled about treatment options, and understands the risks associated with treatment of depression, as well as the risks associated with NOT treating the depression. I believe the pt will benefit from medical intervention and an antidepressant has been appropriately prescribed for this patient. Esophageal Reflux - the patient has been counseled against excessive intake of caffeine, spicy foods, peppermint, and cinnamon - all of which can exacerbate esophageal reflux. The patient is to take medications as prescribed and call the office if the symptoms are not improving. 06/14/2017 Patient Education: Patient Medication Summary Completed 06/14/2017 Visit Plan: Infectious enteritis - discussed need to stay away from milk products while acutely ill with diarrhea and nausea and emesis as it may worsen the symptoms. Liquids initially until the nausea improves, then recommend to advance to bland diet for 1 day, then advance as tolerated. Call if symptoms not improved. 05/13/2017 Appointment: Ingrid Llanes WPtel: [address] [phone] (10 min) Simple 05/13/2017 Patient Education: Patient Medication Summary Completed 05/13/2017 Patient Education: Patient Medication Summary Completed 01/13/2017 Appointment: Abril Sheridan WPtel: [facility] (15 min) Moderate 12/09/2016 Visit Plan: Psoriasis - symptoms have improved from previous appointment - she is wanting to start Otezla - Spoke with Dr. Woods office on the phone, they are OK with prescribing the medication - appointment date and time given to pt. Pt is to notify clinic with any questions or concerns. 11/30/2016 Appointment: Cydney Gilbert WPtel: [facility] [place] (30 min) Complex 11/30/2016 Patient Education: Patient Medication Summary Completed 11/30/2016 Patient Education: Obesity Completed 11/30/2016 Visit Plan: Psoriasis Flare - Pt states that she has been seeing Dr. Woods, who wants to start her on Humira - she states that she does not want to start Humira, but has seen commercials for Otezla and she would like to try that - Will discuss with Dr. Sheridan - will send RX for acute flare and pruritus. 11/16/2016 Appointment: Cydney Gilbert WPtel: [phone] [facility] [place] (30 min) Complex 11/16/2016 Patient Education: Patient Medication Summary Completed 11/16/2016 Patient Education: Obesity Completed 11/16/2016 Visit Plan: Arthritis- occasionally uncontrolled symptoms- recommend pt to take antiinflammatory as directed for pain control. Use tylenol for break through pain symptoms. Chronic Pain Syndrome - pt has chronic pain - has been maintained on current medications, has not sought out other medications , only uses PRN pain medications as directed, and understands the consequences of over-medication. 06/10/2016 Patient Education: Patient Medication Summary Completed 06/10/2016 Patient Education: Obesity Completed 06/10/2016 Appointment: Ingrid Llanes WPtel: [facility] [phone] (15 min) Moderate 06/04/2016 Visit Plan: Inflammation of multiple joints including wrists, hands and muscles aches of legs-recheck inflammatory markers plus uric acid, elle, rf-kenlaog injection today in the office-start prednisone taper tomorrow Dityxbjncq-rdpqfbno-mm change in medication 04/13/2016 Patient Education: Patient Medication Summary Completed 04/13/2016 Patient Education: Obesity Completed 04/13/2016 Visit Plan: Cellulitis of chest wall - improving - but not completely resolved - refilled gentamycin drops for topical treatment of infection. Vitamin D deficiency - resume daily vitamin D supplementation. Hand pain - pt to keep appt with specialist for treatment of wrist derrangement. 03/22/2016 Patient Education: Patient Medication Summary Completed 03/22/2016 Patient Education: Obesity Completed 03/22/2016 Visit Plan: Cellulitis - continue with oral antibiotics as previously directed, return to clinic as previously directed, call for acute change in symptoms, worsening redness, warmth, discharge. rx for ciprofloxacin oral and gentamycin topically Inflammation of wrist and total body aches - recommend labs - crp, esr, cbc continue with increase in lexapro as previously directed at appt a few days ago 03/02/2016 Patient Education: Patient Medication Summary Completed 03/02/2016 Patient Education: Obesity Completed 03/02/2016 [facility] Completed 02/26/2016 Care Plan: Referral Order SNOMED-CT : [id number] Pending 02/24/2016 Visit Plan: Right wrist pain - ongoing - will check labs, refer to Dr. Mellisa Cline - will send RX, pt is to notify clinic if symptoms do not improve, if they worsen, or with any concerns Depression - uncontrolled - Pt has been counseled about the diagnosis of depression, the potential causes , and risks associated with the diagnosis. The pt denies suicidal ideation, or plans. The patient has been counseled about treatment options, and understands the risks associated with treatment of depression, as well as the risks associated with NOT treating the depression. I believe the pt will benefit from medical intervention and an antidepressant has been appropriately prescribed for this patient. 02/23/2016 Appointment: Cydney Gilbert WPtel: [facility] (15 min) Moderate 02/23/2016 Patient Education: Patient Medication Summary Completed 02/23/2016 Patient Education: Obesity Completed 02/23/2016 Appointment: Ingrid Llanes WPtel: [phone] [place] [address] (15 min) Moderate 01/29/2016 Visit Plan: Tinea-start triamcinolone/ketoconazole cream twice daily Right wrist pain-xray wrist 01/09/2016 Appointment: (30 min) Complex 01/09/2016 Patient Education: Patient Medication Summary Completed 01/09/2016 Patient Education: Obesity Completed 01/09/2016 Appointment: (15 min) Moderate 12/16/2015 Visit Plan: Tinea-continue Diflucan-start clotrimazole as directed Gastroenteritis-symptoms improved-call if symptoms do not resolve or if any worse 12/09/2015 Appointment: (30 min) Complex 12/09/2015 Patient Education: Patient Medication Summary Completed 12/09/2015 Patient Education: Obesity Completed 12/09/2015 Appointment: (15 min) Moderate 11/25/2015 Visit Plan: Rash-culture grew pseudomonas-recommend repeat course of levaquin-continue nystatin powder and keep clean/dry. Follow up in 10 days 11/14/2015 Appointment: (15 min) Moderate 11/14/2015 Patient Education: Patient Medication Summary Completed 11/14/2015 Visit Plan: Rash-cultured today in the office-Rx for diflucan and nystatin provided and instructed on use-follow up in 2 weeks Hqxdfvxtlg-fpjzhhhgx-vbm vitamin B12 and folic acid-check labs Hyerlipidemia- check labs 10/31/2015 Appointment: Ingrid Llanes WPtel: [address] [place], [place] [phone] (15 min) Moderate 10/31/2015 Patient Education: Patient Medication Summary Completed 10/31/2015 Visit Plan: Biceps tendinitis - pt to do exercises as directed, ant-inflammatories directed to be taken per RX instructions and pt to call if symptoms are not improved. 12/12/2014 Appointment: Abril Sheridan WPtel: [address] [place], [place] [phone] Follow up 12/12/2014 Patient Education: Patient Medication Summary Completed 12/12/2014 Appointment: Abril Sheridan WPtel: [address] [place], [place] [phone] [place] [address] follow up 12/11/2014 Visit Plan: Hyperlipidemia - pt has been counseled about appropriate diet, exercise, and need for low fat food choices. I have discussed the need for the patient to take medications as prescribed. If the patient has negative side effects from the medication, they are to CALL the office and not abruptly discontinue the medication without discussion with a practitioner in the office. We will check labs in 3-6 months for follow up on the patient's chronic medical problem and to assure normal liver response to medications. Hot flashes - pt to start on brisdel 7.5mg daily. Rash - rx for diflucan. 11/11/2014 Appointment: Abril Sheridan WPtel: [address] [place], [place] [phone] Follow up 11/11/2014 Patient Education: Patient Medication Summary Completed 11/11/2014 Care Plan: COMPLETE CBC AUTOMATED LOINC : 54108-0 Ordered 11/11/2014 Appointment: Abril Sheridan WPtel: [address] [place], [place] [phone] Follow up 11/04/2014 Visit Plan: Sleep disordered breathing - recommended appt for sleep apnea evaluation - appt with gallo on 07/16/14 @240pm Tinea - RX sent electronically to the pt's pharmacy. 07/03/2014 Appointment: Abril Sheridan WPtel: [facility] Follow up 07/03/2014 Patient Education: Patient Medication Summary Completed 07/03/2014 Visit Plan: Rash - uncertain etiology - recommended culture - continue with nystatin powder, and start on mupirocin ointment three times daily - try to keep skin folds clean and dry, and we will call her with the result of the skin culture, if the lesions do not improve, we will need to consider other treatments. Sciatica- exercises discussed with the patient, pt to continue with antiinflammatories. Pt is to call if the symptoms do not improve or if they worsen. Depression - improved on cymbalta - pt states that generic cymbalta did NOT work at all and cannot use the generic medication - she should call if the symptoms return. Vitamin D deficiency - recommended pt to continue with vitamin d supplementation. Hyperlipidemia - check labs. 12/04/2013 Appointment: Abril Sheridan WPtel: [facility] Other 12/04/2013 Patient Education: Patient Medication Summary Completed 12/04/2013 Visit Plan: Tinea-discussed natural and expected course of this diagnosis and to alert me if symptoms do not follow expected course, or if any worse, RX sent to patient's pharmacy and instructed on use. Patient verbalized understanding of plan. 11/13/2013 Appointment: Ingrid Llanes WPtel: [phone] Other 11/13/2013 Patient Education: Patient Medication Summary Completed 11/13/2013 Appointment: Abril Sheridan WPtel: [address] [place], [place] [phone] Follow up 10/16/2013 Visit Plan: Esophageal Reflux - the patient has been counseled against excessive intake of caffiene, spicy foods, peppermint, and cinnamon - all of which can exacerbate esophageal reflux. The patient is to take medications as prescribed and call the office if the symptoms are not improving. Post menopausal - pt to continue with estradiol, monitor symptoms, call if not improving. 07/16/2013 Appointment: Abril Sheridan WPtel: [address] [place], [place] [phone] Follow up 07/16/2013 Patient Education: Patient Medication Summary Completed 07/16/2013 Visit Plan: Esophageal Reflux - the patient has been counseled against excessive intake of caffiene, spicy foods, peppermint, and cinnamon - all of which can exacerbate esophageal reflux. The patient is to take medications as prescribed and call the office if the symptoms are not improving. Arthritis- occasionally uncontrolled symptoms- recommend pt to take antiinflammatory as directed for pain control. Use tylenol for break through pain symptoms. Hot flashes - start on low dose of estrogen to see if this may be a part of the reason pt is having the hot flashes Low back pain- the patient was instructed in appropriate posture, need for weight loss to alleviate abdominal obesity that is worsening the patient's back pain.. The pt is to use prn antiinflammatories to manage acute pain. The patient is to call the office if the pain is worsening or does not improve. 07/02/2013 Appointment: Abril Sheridan WPtel: [address] [place], [place] [phone] Other 07/02/2013 Patient Education: Patient Medication Summary Completed 07/02/2013 Visit Plan: Back pain - uncertain eitiology - check labs if symptoms not improved with MOBIC , will monitor cbc, chem panel, and add esr/ crp. Pt to start on mobic orally, RX for this sent to pt pharmacy - pt also given kenalog shot today in clinic. Chills/ sweats - may be multiple different differential diagnosis - however, pt has been having dental problems, will treat with clindamycin for potential oral infection and call if not improving. 06/18/2013 Appointment: Abril Sheridan WPtel: [address] [place], [place] [phone] [place] Other 06/18/2013 Patient Education: Patient Medication Summary Completed 06/18/2013 Appointment: Abril Sheridan WPtel: [address] [place], [place] [phone] [place] Follow up 03/01/2013 Visit Plan: Esophageal Reflux - the patient has been counseled against excessive intake of caffiene, spicy foods, peppermint, and cinnamon - all of which can exacerbate esophageal reflux. The patient is to take medications as prescribed and call the office if the symptoms are not improving. start on nexium referral to Dr. Earl for EGD B 12 deficiency - macrocytosis - severe fatigue - recommended shot today. Depression and insomnia - uncontrolled - will continue with cymbalta - hopefully with better sleep and b12, her depression will improve, will monitor and start on xanax 0.25mg po q 8 hours prn for anxiety/insomnia. Vitamin D deficiency - start on vitamin D 2000 units daily. 02/15/2013 Appointment: Abril Sher[phone] [facility] Follow up 02/15/2013 Patient Education: Patient Medication Summary Completed 02/15/2013 Visit Plan: Hyperlipidemia - pt has been counseled about appropriate diet, exercise, and need for low fat food choices. I have discussed the need for the patient to take medications as prescribed. If the patient has negative side effects from the medication, they are to CALL the office and not abruptly discontinue the medication without discussion with a practicioner in the office. We will check labs in 3-6 months for follow up on the patient's chronic medical problem and to assure normal liver response to medications. Vitamin D deficiency-start on 50,000 units weekly then 2000 units daily. Elevated blood sugar-hgb a1c 5.9%-discussed dietary and lifestyle modifications and ADA diet-cut back on sweets and carbs and repeat labs in 3 months. Elevated Blood Pressure - without diagnosis of hypertension - pt has been instructed to check blood pressure as an outpatient, record blood pressure and heart rate and report to the clinic in two weeks on the findings. Pt advised to cut back on added salt in the diet. Fatigue-B12 level low normal-recommend b complex daily and repeat labs in a few months. TSH 3-plan to repeat in 3 months as well. 12/15/2012 Appointment: Ingrid Llanes [facility]el: [phone] [facility] [id number] Follow up 12/15/2012 Patient Education: Patient Medication Summary Completed 12/15/2012 Patient Education: Patient Medication Summary Completed 12/05/2012 Visit Plan: Esophageal Reflux - the patient has been counseled against excessive intake of caffiene, spicy foods, peppermint, and cinnamon - all of which can exacerbate esophageal reflux. The patient is to take medications as prescribed and call the office if the symptoms are not improving. Pt started on carafate and pantoprazole. Chronic Depression and anxiety - the pt has symptoms of chronic anxiety and depression that have been fairly well controlled since the last office visit. The pt has expected periods of exacerbation with abatement of the symptoms with change in situational exposure. No change in current medications. 11/30/2012 Appointment: Abril Sheridan WPtel: [phone] [id number] New Patient 11/30/2012 Patient Education: Patient Medication Summary Completed 11/30/2012 Appointment: Abril Sheridan WPtel: [phone] [id number] New Patient 10/24/2012 Referral: Tj Pak [facility] Referral Initiated Referral: Raghav Perales Referral Initiated Instructions Comment decrease lexapro to 1/2 pill x 2 weeks then stop it. In 1 week start wellbutrin continue your current reflux medications colonoscopy and EGD with Dr. Hawley on 07/11 - they will fax you information for preparation. The hospital will call you the before to give you an exact time. Follow up in 1 month to see how the wellbutrin is doing. Let me know if you are not doing better and I will see you sooner. . Esophageal Reflux - the patient has been counseled against excessive intake of caffeine, spicy foods, peppermint, and cinnamon - all of which can exacerbate esophageal reflux. The patient is to take medications as prescribed and call the office if the symptoms are not improving. Anxiety - the patient has uncontrolled anxiety and will benefit from an SSRI on a daily basis to attempt control of the symptoms of anxiety (tachycardia, overwhelming sensations, stress, insomnia, etc). Pt is aware of the risks and benefits of treatment with the above medications. Depression - uncontrolled - Pt has been counseled about the diagnosis of depression, the potential causes, and risks associated with the diagnosis. The pt denies suicidal ideation, or plans. The patient has been counseled about treatment options, and understands the risks associated with treatment of depression, as well as the risks associated with NOT treating the depression. I believe the pt will benefit from medical intervention and an antidepressant has been appropriately prescribed for this patient. . Biceps tendinitis - pt to do exercises as directed, ant- inflammatories directed to be taken per RX instructions and pt to call if symptoms are not improved. . Chronic Depression and anxiety - the pt has symptoms of chronic anxiety and depression that have been fairly well controlled since the last office visit. The pt has expected periods of exacerbation with abatement of the symptoms with change in situational exposure. Esophageal Reflux - the patient has been counseled against excessive intake of caffeine, spicy foods, peppermint, and cinnamon - all of which can exacerbate esophageal reflux. The patient is to take medications as prescribed and call the office if the symptoms are not improving. Psoriasis - will send RX - pt is to follow up with her specialist. The patient is to call for any change in symptoms, increase in size of the lesion, increase in pain, worsening redness, warmth, discharge. . Psoriasis Flare - Pt states that she has been seeing Dr. Woods, who wants to start her on Humira - she states that she does not want to start Humira, but has seen commercials for Otezla and she would like to try that - Will discuss with Dr. Sheridan - will send RX for acute flare and pruritus. Appointment with Dr. Woods on at 9 AM - they said they are OK with prescribing you Otezla. . Psoriasis - symptoms have improved from previous appointment - she is wanting to start Otezla - Spoke with Dr. Woods office on the phone, they are OK with prescribing the medication - appointment date and time given to pt. Pt is to notify clinic with any questions or concerns. . Tinea-start triamcinolone/ketoconazole cream twice daily Right wrist pain-xray wrist b12 liquid start on vitamin D 2000mg daily. Esophageal Reflux - the patient has been counseled against excessive intake of caffiene, spicy foods, peppermint, and cinnamon - all of which can exacerbate esophageal reflux. The patient is to take medications as prescribed and call the office if the symptoms are not improving. start on nexium referral to Dr. Earl for EGD B 12 deficiency - macrocytosis - severe fatigue - recommended shot today. Depression and insomnia - uncontrolled - will continue with cymbalta - hopefully with better sleep and b12, her depression will improve, will monitor and start on xanax 0.25mg po q 8 hours prn for anxiety/insomnia. Vitamin D deficiency - start on vitamin D 2000 units daily. . Arthritis- occasionally uncontrolled symptoms- recommend pt to take antiinflammatory as directed for pain control. Use tylenol for break through pain symptoms. Chronic Pain Syndrome - pt has chronic pain - has been maintained on current medications, has not sought out other medications, only uses PRN pain medications as directed, and understands the consequences of over-medication. recommended pt to increase the nystatin powder to four times daily use mupirocin ointment three times daily.. Rash - uncertain etiology - recommended culture - continue with nystatin powder, and start on mupirocin ointment three times daily - try to keep skin folds clean and dry, and we will call her with the result of the skin culture, if the lesions do not improve, we will need to consider other treatments. Sciatica- exercises discussed with the patient, pt to continue with antiinflammatories. Pt is to call if the symptoms do not improve or if they worsen. Depression - improved on cymbalta - pt states that generic cymbalta did NOT work at all and cannot use the generic medication - she should call if the symptoms return. Vitamin D deficiency - recommended pt to continue with vitamin d supplementation. Hyperlipidemia - check labs. . Back pain - uncertain eitiology - check labs if symptoms not improved with MOBIC , will monitor cbc, chem panel, and add esr/crp. Pt to start on mobic orally, RX for this sent to pt pharmacy - pt also given kenalog shot today in clinic. Chills/ sweats - may be multiple different differential diagnosis - however, pt has been having dental problems, will treat with clindamycin for potential oral infection and call if not improving. . Hyperlipidemia - pt has been counseled about appropriate diet, exercise, and need for low fat food choices. I have discussed the need for the patient to take medications as prescribed. If the patient has negative side effects from the medication, they are to CALL the office and not abruptly discontinue the medication without discussion with a practitioner in the office. We will check labs in 3-6 months for follow up on the patient's chronic medical problem and to assure normal liver response to medications. Hot flashes - pt to start on brisdel 7.5mg daily. Rash - rx for diflucan. 1. will send hydroxyzine to take as needed for itching 2. I will call Dr. Woods office about changing the otezla - keep your appointment with her - call me and let me know what she says at your appointment. 3. will send pepcid to start for both itching and reflux/heartburn keep taking the generic nexium as well. 4. Come back in 1 week and we will stop your lexapro and switch you to a different medication possibly prozac or wellbutrin 5. I will refer you to Dr. Perales for a colonoscopy Call me with any changes, questions, or concerns before your next appointment. . Psoriasis - Defer to Dermatology - pt is to notify clinic with changes in treatment plan. Pruritis - will send RX - pt is to notify clinic if symptoms do not improve, if they worsen, or with any changes, questions, or concerns. Depression - uncontrolled - Pt has been counseled about the diagnosis of depression, the potential causes, and risks associated with the diagnosis. The pt denies suicidal ideation, or plans. The patient has been counseled about treatment options, and understands the risks associated with treatment of depression, as well as the risks associated with NOT treating the depression. I believe the pt will benefit from medical intervention and an antidepressant has been appropriately prescribed for this patient. Esophageal Reflux - the patient has been counseled against excessive intake of caffeine, spicy foods, peppermint, and cinnamon - all of which can exacerbate esophageal reflux. The patient is to take medications as prescribed and call the office if the symptoms are not improving. Vitamin D 5000 units daily [employer] and home - get two old goats - use on wrist twice daily. zopsor one pill three times daily x 6 days - then get ibuprofen and take three pills daily x 1 week then two pills twice daily x 2 weeks then as needed thereafter . Cellulitis - continue with oral antibiotics as previously directed, return to clinic as previously directed, call for acute change in symptoms, worsening redness, warmth, discharge. rx for ciprofloxacin oral and gentamycin topically Inflammation of wrist and total body aches - recommend labs - crp, esr, cbc continue with increase in lexapro as previously directed at appt a few days ago CALL TUESDAY WITH UPDATE . Son-discussed natural and expected course of this diagnosis and to alert me if symptoms do not follow expected course, or if any worse, RX sent to patient's pharmacy and instructed on use. Patient verbalized understanding of plan. [employer] oil 1 tab twice daily B complex daily After you finish the prescription vitamin D, start vitamin D 2000 units daily. Recommend increasing exercise to 30 minutes most days of the week. Decrease fatty food intake-no fried foods, fast foods. Cut back on sweets as well. . Hyperlipidemia - pt has been counseled about appropriate diet, exercise, and need for low fat food choices. I have discussed the need for the patient to take medications as prescribed. If the patient has negative side effects from the medication, they are to CALL the office and not abruptly discontinue the medication without discussion with a practicioner in the office. We will check labs in 3-6 months for follow up on the patient's chronic medical problem and to assure normal liver response to medications. Vitamin D deficiency-start on 50,000 units weekly then 2000 units daily. Elevated blood sugar-hgb a1c 5.9%-discussed dietary and lifestyle modifications and ADA diet-cut back on sweets and carbs and repeat labs in 3 months. Elevated Blood Pressure - without diagnosis of hypertension - pt has been instructed to check blood pressure as an outpatient, record blood pressure and heart rate and report to the clinic in two weeks on the findings. Pt advised to cut back on added salt in the diet. Fatigue-B12 level low normal-recommend b complex daily and repeat labs in a few months. TSH 3-plan to repeat in 3 months as well. . Chronic Depression and anxiety - the pt has symptoms of chronic anxiety and depression that have been fairly well controlled since the last office visit. The pt has expected periods of exacerbation with abatement of the symptoms with change in situational exposure. No change in current medications. 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 Esophageal Reflux - the patient has been counseled against excessive intake of caffiene, spicy foods, peppermint, and cinnamon - all of which can exacerbate esophageal reflux. The patient is to take medications as prescribed and call the office if the symptoms are not improving. Arthritis- occasionally uncontrolled symptoms- recommend pt to take antiinflammatory as directed for pain control. Use tylenol for break through pain symptoms. Hot flashes - start on low dose of estrogen to see if this may be a part of the reason pt is having the hot flashes Low back pain- the patient was instructed in appropriate posture, need for weight loss to alleviate abdominal obesity that is worsening the patient's back pain.. The pt is to use prn antiinflammatories to manage acute pain. The patient is to call the office if the pain is worsening or does not improve. DIFLUCAN 150MG DAILY X 10 DAYS THEN WEEKLY X 4 WEEKS KEEP GROIN AND BREASTS DRY USE NYSTATIN POWDER 4 TIMES DAILY VITAMIN B12 2000MCG DAILY FOLIC ACID 1MG DAILY . Rash-cultured today in the office-Rx for diflucan and nystatin provided and instructed on use-follow up in 2 weeks Cnxcglqhgm-oitwfvpcg-ghy vitamin B12 and folic acid-check labs Hyerlipidemia-check labs cbc, cmp CT ABD/PELVIS Clear liquid diet-advance as tolerated . Infectious enteritis - discussed need to stay away from milk products while acutely ill with diarrhea and nausea and emesis as it may worsen the symptoms. Liquids initially until the nausea improves, then recommend to advance to bland diet for 1 day, then advance as tolerated. Call if symptoms not improved. . Sleep disordered breathing - recommended appt for sleep apnea evaluation - appt with gallo on 07/16/14 @240pm Tinea - RX sent electronically to the pt's pharmacy. LEVAQUIN 500MG DAILY X 10 DAYS KEEP CLEAN AND DRY STOP USING MUPIROCIN OINTMENT-USE ONLY THE NYSTATIN POWDER LET AIR OUT WHEN ABLE FOLLOW UP IN 10 DAYS PRESCRIPTION FOR HYDROXYZINE TO USE NEEDED AT BEDTIME FOR ITCHING . Rash- culture grew pseudomonas-recommend repeat course of levaquin-continue nystatin powder and keep clean/dry. Follow up in 10 days . Cellulitis of chest wall - improving - but not completely resolved - refilled gentamycin drops for topical treatment of infection. Vitamin D deficiency - resume daily vitamin D supplementation. Hand pain - pt to keep appt with specialist for treatment of wrist derrangement. . Tinea-continue Diflucan-start clotrimazole as directed Gastroenteritis-symptoms improved-call if symptoms do not resolve or if any worse PREDNISONE 10MG 6-5-4-3-2-1 START TOMORROW!! OK TO TAKE HYDROCODONE NEEDED HOLD IBUPROFEN UNTIL YOU ARE FINISHED WITH THE PREDNISONE . Inflammation of multiple joints including wrists, hands and muscles aches of legs-recheck inflammatory markers plus uric acid, elle, rf-kenlaog injection today in the office-start prednisone taper tomorrow Ztnthqbvss-gpxqutxr-op change in medication . Esophageal Reflux - the patient has been counseled against excessive intake of caffiene, spicy foods, peppermint, and cinnamon - all of which can exacerbate esophageal reflux. The patient is to take medications as prescribed and call the office if the symptoms are not improving. Pt started on carafate and pantoprazole. Chronic Depression and anxiety - the pt has symptoms of chronic anxiety and depression that have been fairly well controlled since the last office visit. The pt has expected periods of exacerbation with abatement of the symptoms with change in situational exposure. No change in current medications. . Esophageal Reflux - the patient has been counseled against excessive intake of caffiene, spicy foods, peppermint, and cinnamon - all of which can exacerbate esophageal reflux. The patient is to take medications as prescribed and call the office if the symptoms are not improving. Post menopausal - pt to continue with estradiol, monitor symptoms, call if not improving. Will change from Cymbalta to Lexapro - take Cymbalta 60mg every other day x1 week. Take 1/2 Lexapro daily X1 week, then stop Cymbalta and take full pill of Lexapro daily. I will refer you to Dr. Pak. Take steroid as directed. Come get your blood drawn before starting the Prednisone. Take Lexapro at night, it can make you sleepy. . Right wrist pain - ongoing - will check labs, refer to Dr. Mellisa Cline - will send RX, pt is to notify clinic if symptoms do not improve, if they worsen, or with any concerns Depression - uncontrolled - Pt has been counseled about the diagnosis of depression, the potential causes, and risks associated with the diagnosis. The pt denies suicidal ideation, or plans. The patient has been counseled about treatment options, and understands the risks associated with treatment of depression, as well as the risks associated with NOT treating the depression. I believe the pt will benefit from medical intervention and an antidepressant has been appropriately prescribed for this patient.
--- OUTSIDE RECORDS SUMMARY | 2018-06-16 07:35 | XMS REPORT | CCD ---
Author Author Abril Sheridan Organization Abril Sheridan MD, [facility] Address [address] [place] [address] Phone Care Team Providers Care Service Girl Name Role Phone PP Unavailable CCM Unavailable Summary Purpose Interface Exchange Insurance Providers Payer name Policy type / Coverage type Covered alliance party ID Effective Begin Date Effective End Date WPS Medicare Part B Medicare Part B [id number] Unknown Unknown [employer] Medicare Part B [id number] Unknown Unknown Family history Sister Diagnosis Age [...] Description Effective Dates Tobacco history SNOMED CT: 048553861 Never smoker 11/30/[address]: 754008616 Never drinks alcohol 11/30/2012 Has the patient [...] Start Date Stop Date Status Fill Instructions Cymbalta 30 mg capsule,delayed release RxNorm: 025585 1 Capsule(s) PO daily 10/18/2017 04/15/2018 Active clindamycin HCl 300 mg capsule RxNorm: 527894 1 Capsule(s) PO TID 10/18/2017 10/27/2017 Active tramadol 50 mg tablet RxNorm: 646201 1 Tablet(s) PO TID as needed 10/18/2017 No Stop Date Active Cymbalta 30 mg capsule,delayed release RxNorm: 777063 1 Capsule(s) PO daily 10/04/2017 10/17/2017 Inactive Cymbalta 30 mg capsule,delayed release RxNorm: 274641 1 Capsule(s) PO daily 10/04/2017 10/03/2017 Inactive betamethasone dipropionate 0.05 % topical cream RxNorm: 354816 1 Application TOP BID 08/31/2017 No Stop Date Active prednisone 20 mg tablet RxNorm: 202299 2 Tablet(s) PO daily 09/04/2017 Inactive Wellbutrin XL 150 mg 24 hr tablet, extended release RxNorm: 543099 1 Tablet(s) PO daily 07/26/2017 10/17/2017 Inactive Wellbutrin XL 150 mg 24 hr tablet, extended release RxNorm: 332590 1 Tablet(s) PO daily 06/21/2017 07/20/2017 Inactive hydroxyzine HCl 25 mg tablet RxNorm: 817764 1 Tablet(s) PO TID as needed 06/14/2017 No Stop Date Active itching/insomnia Pepcid 20 mg tablet RxNorm: 861078 1 Tablet(s) PO BID 201606/23/2017 Inactive Flagyl 500 mg tablet RxNorm: 977971 1 Tablet(s) PO TID 201605/22/2017 Inactive Cipro 500 mg tablet RxNorm: 377796 1 Tablet(s) PO BID 201605/22/2017 Inactive Lexapro 20 mg tablet RxNorm: 610445 Tablet(s) TAKE ONE TABLET BY MOUTH ONCE DAILY 03/04/2017 08/15/2017 Inactive Nexium 40 mg capsule,delayed release RxNorm: 799356 TAKE ONE CAPSULE BY MOUTH ONCE DAILY 02/14/2017 08/15/2017 Inactive Vitamin D2 50,000 unit capsule RxNorm: 009959 1 Capsule(s) PO QW 01/19/2017 04/12/2017 Inactive one weekly for 12 weeks then 2000 units daily thereafter Lexapro 20 mg tablet RxNorm: 477681 TAKE ONE TABLET BY MOUTH ONCE DAILY 01/14/2017 03/03/2017 Inactive betamethasone dipropionate 0.05 % topical ointment RxNorm: 781620 1 Application TOP BID in between gentamycin applications 11/16/2016 No Stop Date Active prednisone 10 mg tablet RxNorm: 664133 Tablet(s) PO UD 201610/17/2017 Inactive 6,6,5,5,4,4,3,3,2,2,1,1, then 1/2 every other day x 2 doses Lexapro 20 mg tablet RxNorm: 802447 Tablet(s) 1 Tablet(s) PO daily 08/27/2016 03/03/2017 Inactive Lexapro 20 mg tablet RxNorm: 292567 1 Tablet(s) PO daily 201508/26/2016 Inactive Lexapro 20 mg tablet RxNorm: 591273 1 Tablet(s) PO daily 201508/24/2016 Inactive Lexapro 20 mg tablet RxNorm: 575837 1 Tablet(s) PO daily 201507/21/2016 Inactive hydrocodone 5 mg-acetaminophen 325 mg tablet RxNorm: 683748 1 Tablet(s) PO Q6 PRN 06/10/2016 No Stop Date Active hydroxyzine HCl 25 mg tablet RxNorm: 324309 1 Tablet(s) PO HS PRN 06/10/2016 07/09/2016 Inactive itching/anxiety/insomnia meloxicam 7.5 mg tablet RxNorm: 066360 2 Tablet(s) PO daily 05/201608/16/2017 Inactive Lexapro 20 mg tablet RxNorm: 046849 1 Tablet(s) PO daily 201506/10/2016 Inactive prednisone 10 mg tablets in a dose pack RxNorm: 178787 1 Tablet(s) PO UD 04/13/2016 04/18/2016 Inactive 6-5-4-3-2-1 Kenalog 40 mg/mL suspension for injection RxNorm: 2229824 Milliliter(s) Inj 04/13/2016 04/13/2016 Inactive Lexapro 20 mg tablet RxNorm: 276999 1 Tablet(s) PO daily 201504/29/2016 Inactive Vitamin D3 5,000 unit tablet RxNorm: 571533 2 Tablet(s) PO daily 03/22/2016 No Stop Date Active gentamicin 0.1 % topical ointment RxNorm: 204448 1 Application TOP QID to affected skin tissue 03/22/20162015 Inactive folic acid 1 mg tablet RxNorm: 845697 1 Tablet(s) PO daily 10/17/2017 Inactive betamethasone dipropionate 0.05 % topical ointment RxNorm: 699406 1 Application TOP BID in between gentamycin applications 03/15/2016 11/15/2016 Inactive gentamicin 0.1 % topical ointment RxNorm: 497671 1 Application TOP QID to affected skin tissue 03/02/20162015 Inactive ciprofloxacin 500 mg tablet RxNorm: 335666 1 Tablet(s) PO BID 03/02/2016 03/11/2016 Inactive nystatin 100,000 unit/gram topical cream RxNorm: 852999 1 Application TOP BID 02/23/2016 No Stop Date Active Lexapro 20 mg tablet RxNorm: 397023 1 Tablet(s) PO daily 201503/23/2016 Inactive prednisone 20 mg tablet RxNorm: 045527 2 Tablet(s) PO daily 02/27/2016 Inactive Ultram 50 mg tablet RxNorm: 909157 1 Tablet(s) PO Q6 PRN as needed 02/19/2016 03/01/2016 Inactive duloxetine 60 mg capsule,delayed release RxNorm: 938953 1 Capsule(s) PO daily 01/26/2016 03/01/2016 Inactive [SAVINGS FOR UNINSURED PATIENTS -- BIN:298247, PCN: ASPROD1, Group: AME08, ID# [id number], Process claim through [employer], for questions: . THIS IS NOT INSURANCE.] Nexium 40 mg capsule,delayed release RxNorm: 541780 1 Tablet(s) PO daily 01/09/2016 04/02/2017 Inactive [SAVINGS FOR NON-COVERED DRUGS -- BIN:702206, PCN: ASPROD1, Group: XXXXX, ID# [id number], Questions: . THIS IS NOT INSURANCE.] ketoconazole 2 % topical cream RxNorm: 613705 1 Application TOP BID 01/09/2016 01/22/2016 Inactive triamcinolone acetonide 0.1 % topical cream RxNorm: 6184446 1 Application TOP BID 01/09/2016 01/22/2016 Inactive Nexium 40 mg capsule,delayed release RxNorm: 165943 1 Tablet(s) PO daily 01/09/2016 01/08/2016 Inactive [SAVINGS FOR NON-COVERED DRUGS -- BIN:302306, PCN: ASPROD1, Group: XXXXX, ID# [id number], Questions: . THIS IS NOT INSURANCE.] Diflucan 150 mg tablet RxNorm: 035888 1 Tablet(s) PO daily 05/201602/06/2016 Inactive daily x 7 days then weekly x 4 weeks clotrimazole 1 % topical cream RxNorm: 558853 1 Application TOP BID 12/09/2015 12/22/2015 Inactive hydroxyzine HCl 25 mg tablet RxNorm: 706029 1 Tablet(s) PO HS PRN 11/14/2015 06/13/2017 Inactive itching/insomnia Levaquin 500 mg tablet RxNorm: 365883 1 Tablet(s) PO daily 09/201611/23/2015 Inactive Vitamin D2 50,000 unit capsule RxNorm: 396547 1 Capsule(s) PO QW 11/05/2015 01/27/2016 Inactive one weekly for 12 weeks then 2000 units daily thereafter duloxetine 60 mg capsule,delayed release RxNorm: 322663 1 Capsule(s) PO daily 11/04/2015 01/25/2016 Inactive [SAVINGS FOR UNINSURED PATIENTS -- BIN:814690, PCN: ASPROD1, Group: AME08, ID# [id number], Process claim through [employer], for questions: . THIS IS NOT INSURANCE.] Levaquin 500 mg tablet RxNorm: 748995 1 Tablet(s) PO daily hold diflucan while on the ABX then resume diflucan once completed 11/03/2015 11/09/2015 Inactive Levaquin 500 mg tablet RxNorm: 193385 1 Tablet(s) PO daily 10/201511/02/2015 Inactive nystatin 100,000 unit/gram topical powder RxNorm: 453286 1 Application TOP QID apply to breast tissue, and abdominal folds 10/31/2015 12/29/2015 Inactive dispense quantity sufficient Diflucan 150 mg tablet RxNorm: 108867 1 Tablet(s) PO daily 11/13/2015 Inactive daily x 10 days then weekly x 4 weeks Diflucan 150 mg tablet RxNorm: 438285 1 Tablet(s) PO every other day 10/08/2015 11/18/2015 Inactive [SAVINGS FOR UNINSURED PATIENTS -- BIN:845491, PCN: ASPROD1, Group: AME08, ID# [id number], Process claim through [employer], for questions: [phone]. THIS IS NOT INSURANCE.] nystatin 100,000 unit/gram topical powder RxNorm: 461937 1 Application TOP QID apply to breast tissue, and abdominal folds 07/28/2015 08/24/2015 Inactive dispense quantity sufficient mupirocin 2 % topical ointment RxNorm: 935770 1 Application TOP TID apply under breast tissue and abdominal folds 07/24/2015 03/01/2016 Inactive dispense qs x 14 days nystatin 100,000 unit/gram topical powder RxNorm: 044580 1 Application TOP QID apply to breast tissue, and abdominal folds 07/24/2015 07/27/2015 Inactive dispense quantity sufficient pravastatin 20 mg tablet RxNorm: 909935 1 Tablet(s) PO daily 03/01/2016 Inactive [SAVINGS FOR UNINSURED PATIENTS -- BIN:034333, PCN: ASPROD1, Group: AME08 , ID# [id number], Process claim through [employer], for questions: . THIS IS NOT INSURANCE.] Nexium 40 mg capsule,delayed release RxNorm: 749168 TAKE ONE CAPSULE BY MOUTH ONCE DAILY 12/30/2014 06/27/2015 Inactive Nexium 40 mg capsule,delayed release RxNorm: 538521 1 Tablet(s) PO daily 12/30/2014 01/08/2016 Inactive [SAVINGS FOR NON-COVERED DRUGS -- BIN:667516, PCN: ASPROD1, Group: XXXXX, ID# [id number], Questions: . THIS IS NOT INSURANCE.] prednisone 20 mg tablet RxNorm: 481663 3 Tablet(s) PO daily 09/201512/16/2014 Inactive [SAVINGS FOR NON-COVERED DRUGS -- BIN:327959, PCN: ASPROD1, Group: XXXXX, ID# [id number], Questions: . THIS IS NOT INSURANCE.] Kenalog 40 mg/mL suspension for injection RxNorm: 8087208 Milliliter(s) Inj 12/12/2014 12/12/2014 Inactive [SAVINGS FOR NON-COVERED DRUGS -- BIN:252380, PCN: ASPROD1, Group: XXXXX, ID# [id number], Questions: . THIS IS NOT INSURANCE.] pravastatin 10 mg tablet RxNorm: 293623 1 Tablet(s) PO daily 11/17/2014 Inactive pravastatin 10 mg tablet RxNorm: 722939 1 Tablet(s) PO daily 11/17/2014 Inactive [SAVINGS FOR UNINSURED PATIENTS -- BIN:343746, PCN: ASPROD1, Group: AME08 , ID# [id number], Process claim through [employer], for questions: . THIS IS NOT INSURANCE.] pravastatin 10 mg tablet RxNorm: 927426 1 Tablet(s) PO daily 06/15/2015 Inactive pravastatin 10 mg tablet RxNorm: 678325 1 Tablet(s) PO daily 03/02/2015 Inactive [SAVINGS FOR UNINSURED PATIENTS -- BIN:634492, PCN: ASPROD1, Group: AME08 , ID# [id number], Process claim through [employer], for questions: . THIS IS NOT INSURANCE.] duloxetine 60 mg capsule,delayed release RxNorm: 167199 1 Capsule(s) PO daily 11/11/2014 06/08/2015 Inactive [SAVINGS FOR UNINSURED PATIENTS -- BIN:808205, PCN: ASPROD1, Group: AME08, ID# [id number], Process claim through [employer], for questions: . THIS IS NOT INSURANCE.] Brisdelle 7.5 mg capsule RxNorm: 1230104 1 Capsule(s) PO daily 11/11/2014 01/09/2015 Inactive [SAVINGS FOR UNINSURED PATIENTS -- BIN:240560, PCN: ASPROD1, Group: AME08, ID# [id number], Process claim through [employer], for questions: [phone]. THIS IS NOT INSURANCE.] Diflucan 150 mg tablet RxNorm: 546595 1 Tablet(s) PO every other day 11/11/2014 12/22/2014 Inactive [SAVINGS FOR UNINSURED PATIENTS -- BIN:353522, PCN: ASPROD1, Group: AME08, ID# [id number], Process claim through [employer], for questions: [phone]. THIS IS NOT INSURANCE.] nystatin 100,000 unit/gram topical powder RxNorm: 866862 1 Application TOP QID apply to breast tissue, and abdominal folds 07/15/2014 07/28/2014 Inactive dispense quantity sufficient Diflucan 150 mg tablet RxNorm: 711146 1 Tablet(s) PO daily 10/201307/07/2014 Inactive mupirocin 2 % topical ointment RxNorm: 056698 1 Application TOP TID apply under breast tissue and abdominal folds 05/17/2014 06/13/2014 Inactive dispense qs x 14 days gemfibrozil 600 mg tablet RxNorm: 440265 1 Tablet(s) PO BID 08/201412/10/2013 Inactive gemfibrozil 600 mg tablet RxNorm: 726022 1 Tablet(s) PO BID 08/201403/02/2015 Inactive Medrol ([place]) 4 mg tablets in a dose pack RxNorm: 922854 Tablet(s) PO as directed 12/05/2013 06/03/2014 Inactive Ultram 50 mg tablet RxNorm: 509382 1 Tablet(s) PO Q6 PRN 12/0502/18/2016 Inactive nystatin 100,000 unit/gram topical powder RxNorm: 432204 1 Application TOP QID apply to breast tissue, and abdominal folds 12/04/2013 07/02/2014 Inactive dispense quantity sufficient Nexium 40 mg capsule,delayed release RxNorm: 245994 1 Tablet(s) PO daily 12/04/2013 12/29/2014 Inactive Kenalog 40 mg/mL suspension for injection RxNorm: 4498134 Milliliter(s) Inj 12/04/2013 12/04/2013 Inactive mupirocin 2 % topical ointment RxNorm: 323650 1 Application TOP TID apply under breast tissue and abdominal folds 12/04/2013 12/17/2013 Inactive dispense qs x 14 days Cymbalta 60 mg capsule,delayed release RxNorm: 619867 1 Capsule(s) PO daily 12/04/2013 11/10/2014 Inactive Diflucan 150 mg tablet RxNorm: 627021 1 Tablet(s) PO daily 11/28/2013 Inactive Cymbalta 60 mg capsule,delayed release RxNorm: 753855 1 Capsule(s) PO daily 11/13/2013 12/03/2013 Inactive Diflucan 150 mg tablet RxNorm: 802663 1 Tablet(s) PO daily 08/201411/19/2013 Inactive nystatin 100,000 unit/gram topical powder RxNorm: 292410 1 Gram(s) TOP BID 11/13/2013 11/22/2013 Inactive Vitamin D2 50,000 unit capsule RxNorm: 929203 1 Capsule(s) PO QW 07/03/2013 No Stop Date Active one weekly for 12 weeks then 2000 units daily thereafter sucralfate 100 mg/mL Oral Susp RxNorm: 506647 10 Milliliter(s) PO QID 07/02/2013 10/29/2013 Inactive estradiol 0.5 mg tablet RxNorm: 077230 1 Tablet(s) PO daily 07/02/2014 Inactive promethazine 25 mg/mL Injection RxNorm: 137298 Milliliter(s) Inj 07/02/2013 07/02/2013 Inactive Kenalog 40 mg/mL Susp for Injection RxNorm: 5867357 Milliliter(s) Inj 06/18/2013 06/18/2013 Inactive clindamycin 300 mg capsule RxNorm: 305826 1 Capsule(s) PO TID 06/18/2013 06/24/2013 Inactive meloxicam 7.5 mg tablet RxNorm: 604424 1 Tablet(s) PO daily 07/01/2013 Inactive Cymbalta 60 mg capsule,delayed release RxNorm: 952202 1 Capsule(s) PO daily 05/07/2013 11/02/2013 Inactive Nexium 40 mg capsule,delayed release RxNorm: 197184 1 Tablet(s) PO daily 02/15/2013 09/12/2013 Inactive Vitamin D2 50,000 unit capsule RxNorm: 057947 1 Capsule(s) PO QW 12/07/2012 03/06/2013 Inactive one weekly for 12 weeks then 2000 units daily thereafter Vitamin D2 50,000 unit capsule RxNorm: 808192 1 Capsule(s) PO QW 12/07/2012 12/06/2012 Inactive one weekly for 12 weeks then 2000 units daily thereafter pantoprazole 40 mg tablet,delayed release RxNorm: 219384 1 Tablet(s) PO QPM 11/30/2012 02/14/2013 Inactive sucralfate 100 mg/mL Oral Susp RxNorm: 895388 10 Milliliter(s) PO QID 10 ML by mouth before meals and before bed 11/30/2012 02/15/2013 Inactive multivitamin tablet RxNorm: 1 Tablet(s) PO daily No Start Date Active jonny Red [place] 3 Krill Oil RxNorm: 1 PO BID No Start Date Active Xanax 0.5 mg tablet RxNorm: 761111 1/2 to 1 Tablet(s) PO Q6 PRN No Start Date 03/01/2016 Inactive Cymbalta 60 mg capsule,delayed release RxNorm: 742173 1 Capsule(s) PO daily No Start Date 05/06/2013 Inactive betamethasone dipropionate 0.05 % topical ointment RxNorm: 646228 1 Application TOP BID in between gentamycin applications No Start Date 03/14/2016 Inactive Aleve 220 mg tablet RxNorm: 088686 2 Tablet(s) PO daily No Start Date 03/21/2016 Inactive Vitamin B-12 1,000 mcg tablet RxNorm: 266506 1 Tablet(s) PO daily No Start Date 10/17/2017 Inactive Vitamin D3 2,000 unit capsule RxNorm: 353841 1 Capsule(s) PO daily No Start Date 12/12/2013 Inactive omeprazole 20 mg capsule,delayed release RxNorm: 499197 1 Capsule(s) PO daily No Start Date 11/30/2012 Inactive Ultram 50 mg tablet RxNorm: 507279 1 Tablet(s) PO Q6 PRN No Start Date 12/04/2013 Inactive folic acid oral RxNorm : oral No Start Date 03/21/2016 Inactive Vitamin D3 5,000 unit tablet RxNorm: 379045 1 Tablet(s) PO daily No Start Date 03/21/2016 Inactive Calcium 500 + D (D3) 500 mg-125 unit tablet RxNorm: 120030 1 Tablet(s) PO daily No Start Date 03/21/2016 Inactive Medrol (Carmine) 4 mg tablets in a dose pack RxNorm: 083593 Tablet(s) PO as doctor directed No Start Date 12/04/2013 Inactive Medication Administered Medication Codes Instructions Start Date Status Kenalog 40 mg/mL suspension for injection RxNorm: 8741146 Milliliter 04/13/2016 No longer Active Kenalog 40 mg/mL suspension for injection RxNorm: 2835656 Milliliter 12/12/2014 No longer Active Kenalog 40 mg/mL suspension for injection RxNorm: 7284742 Milliliter 12/04/2013 No longer Active promethazine 25 mg/mL Injection RxNorm: 404642 Milliliter 07/02/2013 No longer Active Kenalog 40 mg/mL Susp for Injection RxNorm: 1420822 Milliliter 06/18/2013 No longer Active Immunizations Vaccine [...] Code Result Date Vitamin D 25 Oh [id number] VITAMIN D, 25 HYDROXY 34.42 ng/mL Cbc With Differential Ord2 WBC 8.06 K/ul 01/13/2017 Cbc With Differential Ord2 RBC 4.68 M/ul 01/13/2017 Cbc With Differential Ord2 HGB 14.9 g/dl 01/13/2017 Cbc With Differential Ord2 Neut% 54.2 % 01/13/2017 Cbc With Differential Ord2 HCT 44.4 % 01/13/2017 Cbc With Differential Ord2 MCV 94.9 fl 01/13/2017 Cbc With Differential Ord2 Lymph% 36.7 % 01/13/2017 Cbc With Differential Ord2 MCH 31.8 pg 01/13/2017 Cbc With Differential Ord2 [place]% 6.7 % 01/13/2017 Cbc With Differential Ord2 MCHC 33.6 pg 01/13/2017 Cbc With Differential Ord2 Eos% 1.9 % 01/13/2017 Cbc With Differential Ord2 PLT 271 K/ul 01/13/2017 Cbc With Differential Ord2 Baso% 0.5 % 01/13/2017 Cbc With Differential Ord2 RDW 13.3 % 01/13/2017 Cbc With Differential Ord2 Neut ABS# 4.37 K/ul 01/13/2017 Cbc With Differential Ord2 Lymph ABS# 2.96 K/ul 01/13/2017 Cbc With Differential Ord2 [place] ABS# 0.5 K/ul 01/13/2017 Cbc With Differential Ord2 Eos ABS# 0.2 K/ul 01/13/2017 Cbc With Differential Ord2 Baso ABS# 0.0 K/ul 01/13/2017 B12 Hej276 B12 562.00 pg/ml 01/13/2017 Elle Reflex Profile [id number] ELLE (ARVIND) SCREEN NONE DETECTED 04/17/2016 Cbc With Differential Ord2 WBC 9.07 K/ul [...] 30.8 pg 04/13/2016 Cbc With Differential Ord2 [place]% 6.7 % 04/13/2016 Cbc With Differential Ord2 [...] 3.86 K/ul 04/13/2016 Cbc With Differential Ord2 [place] ABS# 0.6 K/ul 04/13/2016 Cbc With Differential Ord2 Eos ABS# 0.1 K/ul 04/13/2016 Cbc With Differential Ord2 Baso ABS# 0.0 K/ul 04/13/2016 Ra Factor Azg406 RA FACTOR <10 IU/ml 04/13/2016 Comp Metabolic Zii478 NA 138 mEq/L 04/13/2016 Comp Metabolic Lld706 K 3.7 mEq/L 04/13/2016 Comp Metabolic Frr547 CL 104 mEq/L 04/13/2016 Comp Metabolic Njv665 CO2 25.0 mEq/L 04/13/2016 Comp Metabolic Ioo171 ANION GAP 13 04/13/2016 Comp Metabolic Aff743 GLUCOSE 146 mg/dL 04/13/2016 Comp Metabolic Gmo383 Creat 0.9 mg/dL 04/13/2016 Comp Metabolic Kkp658 eGFR 69 ml/min/1.73m2 04/13/2016 Comp Metabolic Ihv448 BUN 14 mg/dL 04/13/2016 Comp Metabolic Ial121 B/C Ratio 16.5 Ratio 04/13/2016 Comp Metabolic Czt525 CALCIUM 9.5 mg/dL 04/13/2016 Comp Metabolic Eno376 ALK PHOS 107 U/L 04/13/2016 Comp Metabolic Zmp588 AST(SGOT) 16 U/L 04/13/2016 Comp Metabolic Agp167 ALT(SGPT) 17 U/L 04/13/2016 Comp Metabolic Dfh202 BILI T 0.2 mg/dL 04/13/2016 Comp Metabolic Xdr221 ALBUMIN 4.0 g/dL 04/13/2016 Comp Metabolic Osb732 TPRO 6.6 g/dL 04/13/2016 Comp Metabolic Smi364 GLOB 2.6 g/dL 04/13/2016 Comp Metabolic Yoo645 A/G Ratio 1.5 Ratio 04/13/2016 Comp Metabolic Hfl960 Osmo 279 mOsmo 04/13/2016 Sed Rate Ord21 ESR 36 mm/hr 04/13/2016 Uric Acid Ord77 Uric A 6.7 mg/dL 04/13/2016 C-Reactive Protein Qnt Crqnt CRP 1.3 mg/dl 04/13/2016 Vitamin D 25 Oh Agv1929 VITAMIN D, 25 HYDROXY 49.37 ng/mL Comp Metabolic Jzx630 NA 136 mEq/L 02/24/2016 Comp Metabolic Cmw388 K 4.2 mEq/L 02/24/2016 Comp Metabolic Zho495 CL 98 mEq/L 02/24/2016 Comp Metabolic Oom611 CO2 30.0 mEq/L 02/24/2016 Comp Metabolic Ney896 ANION GAP 12 02/24/2016 Comp Metabolic Tuu151 GLUCOSE 115 mg/dL 02/24/2016 Comp Metabolic Zke802 Creat 0.9 mg/dL 02/24/2016 Comp Metabolic Asm954 eGFR 67 ml/min/1.73m2 02/24/2016 Comp Metabolic Avp872 BUN 22 mg/dL 02/24/2016 Comp Metabolic Nvu638 B/C Ratio 25.3 Ratio 02/24/2016 Comp Metabolic Dpu375 CALCIUM 9.8 mg/dL 02/24/2016 Comp Metabolic Fzk910 ALK PHOS 124 U/L 02/24/2016 Comp Metabolic Bvr607 AST(SGOT) 19 U/L 02/24/2016 Comp Metabolic Mio335 ALT(SGPT) 18 U/L 02/24/2016 Comp Metabolic Nhj974 BILI T 0.4 mg/dL 02/24/2016 Comp Metabolic Dry099 ALBUMIN 4.6 g/dL 02/24/2016 Comp Metabolic Knv153 TPRO 7.8 g/dL 02/24/2016 Comp Metabolic Exk870 GLOB 3.3 g/dL 02/24/2016 Comp Metabolic Gqr820 A/G Ratio 1.4 Ratio 02/24/2016 Comp Metabolic Vbe221 Osmo 276 mOsmo 02/24/2016 Sed Rate Ord21 ESR 37 mm/hr 02/24/2016 C-Reactive Protein Qnt Crqnt CRP 1.8 mg/dl 02/24/2016 Cbc With Differential Ord2 WBC 10.59 K/ul 02/24/2016 Cbc With Differential Ord2 RBC 5.13 M/ul 02/24/2016 Cbc With Differential Ord2 HGB 15.6 g/dl 02/24/2016 Cbc With Differential Ord2 Neut% 48.7 % 02/24/2016 Cbc With Differential Ord2 HCT 47.2 % 02/24/2016 Cbc With Differential Ord2 MCV 92.0 fl 02/24/2016 Cbc With Differential Ord2 Lymph% 42.8 % 02/24/2016 Cbc With Differential Ord2 MCH 30.4 pg 02/24/2016 Cbc With Differential Ord2 [place]% 6.8 % 02/24/2016 Cbc With Differential Ord2 MCHC 33.1 pg 02/24/2016 Cbc With Differential Ord2 Eos% 1.4 % 02/24/2016 Cbc With Differential Ord2 PLT 361 K/ul 02/24/2016 Cbc With Differential Ord2 Baso% 0.3 % 02/24/2016 Cbc With Differential Ord2 RDW 13.6 % 02/24/2016 Cbc With Differential Ord2 Neut ABS# 5.16 K/ul 02/24/2016 Cbc With Differential Ord2 Lymph ABS# 4.53 K/ul 02/24/2016 Cbc With Differential Ord2 [place] ABS# 0.7 K/ul 02/24/2016 Cbc With Differential Ord2 Eos ABS# 0.2 K/ul 02/24/2016 Cbc With Differential Ord2 Baso ABS# 0.0 K/ul 02/24/2016 Cbc With Differential Ord2 WBC 7.04 K/ul 10/31/2015 Cbc With Differential Ord2 RBC 4.76 M/ul 10/31/2015 Cbc With Differential Ord2 HGB 14.9 g/dl 10/31/2015 Cbc With Differential Ord2 Neut% 41.7 % 10/31/2015 Cbc With Differential Ord2 HCT 43.4 % 10/31/2015 Cbc With Differential Ord2 MCV 91.2 fl 10/31/2015 Cbc With Differential Ord2 Lymph% 48.4 % 10/31/2015 Cbc With Differential Ord2 MCH 31.3 pg 10/31/2015 Cbc With Differential Ord2 [place]% 7.2 % 10/31/2015 Cbc With Differential Ord2 MCHC 34.3 pg 10/31/2015 Cbc With Differential Ord2 Eos% 2.1 % 10/31/2015 Cbc With Differential Ord2 PLT 263 K/ul 10/31/2015 Cbc With Differential Ord2 Baso% 0.6 % 10/31/2015 Cbc With Differential Ord2 RDW 13.4 % 10/31/2015 Cbc With Differential Ord2 Neut ABS# 2.93 K/ul 10/31/2015 Cbc With Differential Ord2 Lymph ABS# 3.41 K/ul 10/31/2015 Cbc With Differential Ord2 [place] ABS# 0.5 K/ul 10/31/2015 Cbc With Differential Ord2 Eos ABS# 0.2 K/ul 10/31/2015 Cbc With Differential Ord2 Baso ABS# 0.0 K/ul 10/31/2015 Cbc With Differential Ord2 New Analyzer Notice Please note new ref ranges starting 10-15-2015 due to implemntation of new five part differential hematolgy analyzer. 10/31/2015 Vitamin D 25 Oh [id number] VITAMIN D, 25 HYDROXY 33.87 ng/mL Tsh Ord6 hTSH II 4.37 uIU/mL 10/31/2015 Lipid Ord30 CHOL 168 mg/dL 10/31/2015 Lipid Ord30 HDL 30.0 mg/dl 10/31/2015 Lipid Ord30 TRIG 293 mg/dL 10/31/2015 Lipid Ord30 LDL 79 mg/dL 10/31/2015 Lipid Ord30 C/HDL 5.6 Ratio 10/31/2015 B12 Qvv639 B12 327.00 pg/ml 10/31/2015 Comp Metabolic Lcy356 NA 140 mEq/L 10/31/2015 Comp Metabolic Xvh732 K 4.0 mEq/L 10/31/2015 Comp Metabolic Gkq305 CL 103 mEq/L 10/31/2015 Comp Metabolic Yvb187 CO2 29.0 mEq/L 10/31/2015 Comp Metabolic Bje448 ANION GAP 12 10/31/2015 Comp Metabolic Wrq932 GLUCOSE 104 mg/dL 10/31/2015 Comp Metabolic Wtc292 Creat 0.9 mg/dL 10/31/2015 Comp Metabolic Pqa964 eGFR 62 ml/min/1.73m2 10/31/2015 Comp Metabolic Geu142 BUN 13 mg/dL 10/31/2015 Comp Metabolic Brr027 B/C Ratio 13.8 Ratio 10/31/2015 Comp Metabolic Sfa468 CALCIUM 9.5 mg/dL 10/31/2015 Comp Metabolic Myg517 ALK PHOS 102 U/L 10/31/2015 Comp Metabolic Nwj928 AST(SGOT) 19 U/L 10/31/2015 Comp Metabolic Vtz660 ALT(SGPT) 17 U/L 10/31/2015 Comp Metabolic Oqe330 BILI T 0.3 mg/dL 10/31/2015 Comp Metabolic Xdy681 ALBUMIN 4.1 g/dL 10/31/2015 Comp Metabolic Hen197 TPRO 6.8 g/dL 10/31/2015 Comp Metabolic Ctb277 GLOB 2.7 g/dL 10/31/2015 Comp Metabolic Izr463 A/G Ratio 1.5 Ratio 10/31/2015 Comp Metabolic Xuk445 Osmo 280 mOsmo 10/31/2015 GFR CALC 4265355 GFR AA 59.0L ML/MIN 02/28/2015 GFR CALC 5390118 GFR NON-AA 49.0L ML/MIN 02/28/2015 CHEM 14 6080685 AST 19 U/L 02/28/2015 CHEM 14 4671237 ALT 15 IU/L 02/28/2015 CHEM 14 9475830 BUN 16 MG/DL 02/28/2015 CHEM 14 4051793 ALBUMIN 4.7 GM/DL 02/28/2015 CHEM 14 4035756 CHLORIDE 99 MMOL/L 02/28/2015 CHEM 14 2815303 BILI TOT 0.5 MG/DL 02/28/2015 CHEM 14 9140845 ALK PHOS 111 U/L 02/28/2015 CHEM 14 [id number] SODIUM 135 MMOL/L 02/28/2015 CHEM 14 [id number] CREATININE 1.10 MG/DL 02/28/2015 CHEM 14 3417842 CALCIUM 10.1 MG/DL 02/28/2015 CHEM 14 [id number] POTASSIUM 4.0 MMOL/L 02/28/2015 CHEM 14 0280250 PROT TOT 8.2 GM/DL 02/28/2015 CHEM 14 [id number] GLUCOSE 123 MG/DL 02/28/2015 CHEM 14 [id number] BICARB 29 MMOL/L 02/28/2015 CHEM 14 6037627 ANION GAP 7 MEQ/L 02/28/2015 LIPID GRP HDL TEST 38 MG/DL 02/28/2015 LIPID GRP TRIG 312 MG/DL 02/28/2015 LIPID GRP TEST LDL 148 MG/DL 02/28/2015 LIPID GRP CHOL 248 MG/DL 02/28/2015 LIPID GRP RCHOL/HDL 6.53 RATIO 02/28/2015 LIPID GRP NON-HDL CH 210 MG/DL 02/28/2015 LIPID GRP HDL TEST 34 MG/DL 11/11/2014 LIPID GRP TRIG 173 MG/DL 11/11/2014 LIPID GRP TEST LDL 140 MG/DL 11/11/2014 LIPID GRP CHOL 209 MG/DL 11/11/2014 LIPID GRP RCHOL/HDL 6.15 RATIO 11/11/2014 LIPID GRP [id number] NON-HDL CH 175 MG/DL 11/11/2014 CBC [id number] WBC 6.6 10e9/L 11/11/2014 CBC 0786700 RBC 4.89 10e12/L 11/11/2014 CBC 6162434 HGB 15.2 g/dL 11/11/2014 CBC 7644405 HCT DET 45.2 % 11/11/2014 CBC 3270427 MCV 92.4 fL 11/11/2014 CBC 2861761 MCH 31.1 pg 11/11/2014 CBC 4834114 MCHC 33.6 g/dL 11/11/2014 CBC 5329081 PLT 275 10e9/L 11/11/2014 CBC 0107118 MPV 10.1 fL 11/11/2014 CBC 0802571 RC % 43.7 % 11/11/2014 CBC 1702042 LY % 46.5 % 11/11/2014 CBC 2412684 MON % 7.2 % 11/11/2014 CBC 2482043 EOS % 2.0 % 11/11/2014 CBC 8402383 BASO % 0.6 % 11/11/2014 CBC 2005549 RDW 13.3 % 11/11/2014 CBC 8894290 ABS RC 2.88 10e9/L 11/11/2014 CBC 8036327 ABS LYMPH 3.07 10e9/L 11/11/2014 CBC 7616230 ABS MONO 0.48 10e9/L 11/11/2014 CBC 4839693 ABS EOS 0.13 10e9/L 11/11/2014 CBC 1382153 ABS BASO 0.04 10e9/L 11/11/2014 CBC 2435835 RDW-SD 44.1 fL 11/11/2014 CHEM 14 8165946 AST 20 U/L 11/11/2014 CHEM 14 4798033 ALT 14 IU/L 11/11/2014 CHEM 14 5234354 BUN 13 MG/DL 11/11/2014 CHEM 14 2630238 ALBUMIN 4.4 GM/DL 11/11/2014 CHEM 14 1294631 CHLORIDE 104 MMOL/L 11/11/2014 CHEM 14 4192474 BILI TOT 0.3 MG/DL 11/11/2014 CHEM 14 8087881 ALK PHOS 113 U/L 11/11/2014 CHEM 14 8972374 SODIUM 140 MMOL/L 11/11/2014 CHEM 14 4525235 CREATININE 0.98 MG/DL 11/11/2014 CHEM 14 8456321 CALCIUM 9.6 MG/DL 11/11/2014 CHEM 14 3426701 POTASSIUM 3.9 MMOL/L 11/11/2014 CHEM 14 5052557 PROT TOT 7.5 GM/DL 11/11/2014 CHEM 14 9008401 GLUCOSE 102 MG/DL 11/11/2014 CHEM 14 2387993 BICARB 28 MMOL/L 11/11/2014 CHEM 14 2066042 ANION GAP 8 MEQ/L 11/11/2014 GFR CALC 6914306 GFR AA >60 ML/MIN 11/11/2014 GFR CALC 6667498 GFR NON-AA 55.0L ML/MIN 11/11/2014 TSH 4887209 TSH 2.055 uIU/ML 11/11/2014 TSH 0695368 TSH 2.956 uIU/ML 12/04/2013 A1C HPLC 4645137 A1C HPLC 87922-1 5.4 % 12/04/2013 GFR CALC 9539635 GFR AA >60 ML/MIN 12/04/2013 GFR CALC 5760271 GFR NON-AA 57.0L ML/MIN 12/04/2013 CBC 4474032 WBC 7.2 10e9/L 12/04/2013 CBC 9819655 RBC 4.98 10e12/L 12/04/2013 CBC 6224550 HGB 15.8 g/dL 12/04/2013 CBC 3270397 HCT DET 46.0 % 12/04/2013 CBC 9681289 MCV 92.4 fL 12/04/2013 CBC 3518241 MCH 31.7 pg 12/04/2013 CBC 3392760 MCHC 34.3 g/dL 12/04/2013 CBC 3305535 PLT 266 10e9/L 12/04/2013 CBC 3888925 MPV 9.9 fL 12/04/2013 CBC 3433207 RC % 49.1 % 12/04/2013 CBC 3340334 LY % 41.9 % 12/04/2013 CBC 3495829 MON % 6.5 % 12/04/2013 CBC 8928228 EOS % 1.8 % 12/04/2013 CBC 2679923 BASO % 0.7 % 12/04/2013 CBC 6964030 RDW 13.3 % 12/04/2013 CBC 4011434 ABS RC 3.54 10e9/L 12/04/2013 CBC 3718547 ABS LYMPH 3.02 10e9/L 12/04/2013 CBC 4830897 ABS MONO 0.47 10e9/L 12/04/2013 CBC 6302006 ABS EOS 0.13 10e9/L 12/04/2013 CBC 0559580 ABS BASO 0.05 10e9/L 12/04/2013 CBC 9262112 RDW-SD 44.0 fL 12/04/2013 VIT D TOTL 1650802 VIT D TOTL 29 NG/ML 12/04/2013 LIPID GRP HDL TEST 33 MG/DL 12/04/2013 LIPID GRP TRIG 291 MG/DL 12/04/2013 LIPID GRP TEST LDL 124 MG/DL 12/04/2013 LIPID GRP CHOL 215 MG/DL 12/04/2013 LIPID GRP RCHOL/HDL 6.52 RATIO 12/04/2013 CHEM 14 5647820 AST 20 U/L 12/04/2013 CHEM 14 6314234 ALT 18 IU/L 12/04/2013 CHEM 14 0075617 BUN 13 MG/DL 12/04/2013 CHEM 14 2255248 ALBUMIN 4.5 GM/DL 12/04/2013 CHEM 14 3287586 CHLORIDE 104 MMOL/L 12/04/2013 CHEM 14 5586343 BILI TOT 0.3 MG/DL 12/04/2013 CHEM 14 1201812 ALK PHOS 92 U/L 12/04/2013 CHEM 14 4902147 SODIUM 140 MMOL/L 12/04/2013 CHEM 14 5300400 CREATININE 0.96 MG/DL 12/04/2013 CHEM 14 8676893 CALCIUM 9.8 MG/DL 12/04/2013 CHEM 14 5836824 POTASSIUM 4.2 MMOL/L 12/04/2013 CHEM 14 2695968 PROT TOT 7.1 GM/DL 12/04/2013 CHEM 14 6206825 GLUCOSE 111 MG/DL 12/04/2013 CHEM 14 1308546 BICARB 27 MMOL/L 12/04/2013 CHEM 14 1316379 ANION GAP 9 MEQ/L 12/04/2013 CHEM 14 9199119 AST 19 U/L 07/02/2013 CHEM 14 3750237 ALT 20 IU/L 07/02/2013 CHEM 14 4709071 BUN 17 MG/DL 07/02/2013 CHEM 14 7617645 ALBUMIN 4.9 GM/DL 07/02/2013 CHEM 14 3050527 CHLORIDE 103 MMOL/L 07/02/2013 CHEM 14 0766846 BILI TOT 0.3 MG/DL 07/02/2013 CHEM 14 1187509 ALK PHOS 108 U/L 07/02/2013 CHEM 14 6583087 SODIUM 139 MMOL/L 07/02/2013 CHEM 14 3170039 CREATININE 1.01 MG/DL 07/02/2013 CHEM 14 6873164 CALCIUM 10.1 MG/DL 07/02/2013 CHEM 14 9965245 POTASSIUM 4.2 MMOL/L 07/02/2013 CHEM 14 9222654 PROT TOT 7.5 GM/DL 07/02/2013 CHEM 14 3300722 GLUCOSE 94 MG/DL 07/02/2013 CHEM 14 1070749 BICARB 29 MMOL/L 07/02/2013 CHEM 14 4031807 ANION GAP 7 MEQ/L 07/02/2013 CBC 6846468 WBC 11.1 10e9/L 07/02/2013 CBC 3601001 RBC 5.08 10e12/L 07/02/2013 CBC 1375239 HGB 16.1 g/dL 07/02/2013 CBC 2550546 HCT DET 46.6 % 07/02/2013 CBC 6456414 MCV 91.7 fL 07/02/2013 CBC 4776025 MCH 31.7 pg 07/02/2013 CBC 7323656 MCHC 34.5 g/dL 07/02/2013 CBC 8788405 PLT 287 10e9/L 07/02/2013 CBC 9758709 MPV 9.6 fL 07/02/2013 CBC 6424457 RC % 56.1 % 07/02/2013 CBC 5432813 LY % 35.3 % 07/02/2013 CBC 4319790 MON % 7.1 % 07/02/2013 CBC 4252892 EOS % 1.2 % 07/02/2013 CBC 8007393 BASO % 0.3 % 07/02/2013 CBC 9035232 RDW 14.1 % 07/02/2013 CBC 5462044 ABS CR 6.23 10e9/L 07/02/2013 CBC 8598353 ABS LYMPH 3.92 10e9/L 07/02/2013 CBC 6194515 ABS MONO 0.79 10e9/L 07/02/2013 CBC 3370978 ABS EOS 0.13 10e9/L 07/02/2013 CBC 8078666 ABS BASO 0.03 10e9/L 07/02/2013 CBC 5865730 RDW-SD 46.1 fL 07/02/2013 VIT B 12 6399562 VIT B 12 672 PG/ML 07/02/2013 GFR CALC 5510263 GFR AA >60 ML/MIN 07/02/2013 GFR CALC 7249761 GFR NON-AA 54.0L ML/MIN 07/02/2013 FREE T4 9958844 FREE T4 1.09 NG/DL 07/02/2013 TSH 5478809 TSH 1.599 uIU/ML 07/02/2013 VIT D TOTL 4983984 VIT D TOTL 29 NG/ML 07/02/2013 A1C HPLC 2612846 A1C HPLC 83822-0 5.9 % 12/06/2012 LIPID GRP HDL TEST 28 MG/DL 12/05/2012 LIPID GRP TRIG 237 MG/DL 12/05/2012 LIPID GRP TEST LDL 98 MG/DL 12/05/2012 LIPID GRP CHOL 173 MG/DL 12/05/2012 LIPID GRP RCHOL/HDL 6.18 RATIO 12/05/2012 VIT D TOTL 2297230 VIT D TOTL 16 NG/ML 12/05/2012 CBC 7978930 WBC 8.0 10e9/L 12/05/2012 CBC 4121502 RBC 4.83 10e12/L 12/05/2012 CBC 5064895 HGB 15.1 g/dL 12/05/2012 CBC 9822806 HCT DET 44.0 % 12/05/2012 CBC 0419637 MCV 91.1 fL 12/05/2012 CBC 1470482 MCH 31.3 pg 12/05/2012 CBC 4515886 MCHC 34.3 g/dL 12/05/2012 CBC 7609485 PLT 260 10e9/L 12/05/2012 CBC 9554302 MPV 10.0 fL 12/05/2012 CBC 1106897 RC % 41.9 % 12/05/2012 CBC 4635014 LY % 48.1 % 12/05/2012 CBC 9136903 MON % 7.6 % 12/05/2012 CBC 7365920 EOS % 1.9 % 12/05/2012 CBC 4989149 BASO % 0.5 % 12/05/2012 CBC 4533869 RDW 13.4 % 12/05/2012 CBC 1915630 ABS RC 3.35 10e9/L 12/05/2012 CBC 3520607 ABS LYMPH 3.85 10e9/L 12/05/2012 CBC 5933336 ABS MONO 0.61 10e9/L 12/05/2012 CBC 3482555 ABS EOS 0.15 10e9/L 12/05/2012 CBC 1528679 ABS BASO 0.04 10e9/L 12/05/2012 CBC 2404884 RDW-SD 43.4 fL 12/05/2012 CHEM 14 2691594 AST 21 U/L 12/05/2012 CHEM 14 7128282 ALT 24 IU/L 12/05/2012 CHEM 14 3532833 BUN 14 MG/DL 12/05/2012 CHEM 14 6020878 ALBUMIN 4.3 GM/DL 12/05/2012 CHEM 14 8855715 CHLORIDE 106 MMOL/L 12/05/2012 CHEM 14 9370517 BILI TOT 0.4 MG/DL 12/05/2012 CHEM 14 3749476 ALK PHOS 102 U/L 12/05/2012 CHEM 14 3154999 SODIUM 141 MMOL/L 12/05/2012 CHEM 14 3559572 CREATININE 0.96 MG/DL 12/05/2012 CHEM 14 4093991 CALCIUM 9.8 MG/DL 12/05/2012 CHEM 14 1559283 POTASSIUM 4.1 MMOL/L 12/05/2012 CHEM 14 9511170 PROT TOT 6.8 GM/DL 12/05/2012 CHEM 14 6547194 GLUCOSE 107 MG/DL 12/05/2012 CHEM 14 6959987 BICARB 28 MMOL/L 12/05/2012 CHEM 14 8348222 ANION GAP 7 MEQ/L 12/05/2012 FERRITIN 6866363 FERRITIN 151 NG/ML 12/05/2012 MAGNESIUM 6083898 MAGNESIUM 1.6 MEQ/L 12/05/2012 CRP 4832761 CRP 0.6 MG/DL 12/05/2012 FOLIC ACID 2927917 FOLIC ACID 12.2 NG/ML 12/05/2012 VIT B 12 5973563 VIT B 12 389 PG/ML 12/05/2012 TSH 0562018 TSH 3.097 uIU/ML 12/05/2012 GFR CALC 1800967 GFR AA >60 ML/MIN 12/05/2012 GFR CALC 8504728 GFR NON-AA 57.0L ML/MIN 12/05/2012 %SAT/TIBC 4633154 TIBC 305 UG/DL 12/05/2012 %SAT/TIBC 8862052 % SATURAT 25 % 12/05/2012 %SAT/TIBC 5597591 UIBC 229 MCG/DL 12/05/2012 ESR 2343500 ESR 14 MM/HR 12/05/2012 IRON TEST 6144982 IRON TEST 76 UG/DL 12/05/2012 UA 08522 Specific Esko 1.030 DateTime(Free Text in ) UA 29003 PH 5.0 DateTime(Free Text in ) UA 42729 GLUCOSE neg DateTime(Free Text in ) UA 34526 Protein neg DateTime(Free Text in ) UA 48613 Blood neg DateTime(Free Text in Apr) UA 76579 Bilirubin neg DateTime(Free Text in Apr) UA 07061 Ketones neg DateTime(Free Text in ) UA 73157 Urobilinogen neg DateTime(Free Text in ) UA 93913 Nitrite neg DateTime(Free Text in ) UA 19913 Leukocytes trace DateTime(Free Text in ) Review [...] clear 12/09/2015 None Full Exam - General 1995 Ears/Nose/Throat [...] lips 12/04/2013 None Full Exam - General 1995 Ears/Nose/Throat lips/teeth/gingiva Overall: normal dentition 12/04/2013 None [...] accomodation 07/16/2013 None Full Exam - General 1994 Ears/Nose/Throat [...] affect 07/16/2013 None Full Exam - General 1994 Constitutional general appearance Overall: well developed 07/02/2013 [...] normal 07/02/2013 None Full Exam - General 1994 Eyes [...] 1994 Ears/Nose/Throat oral cavity/pharynx/larynx Overall: no masses 06/18/2013 [...] distress 06/18/2013 None Full Exam - General 1995 Constitutional general appearance Overall: well nourished 06/18/2013 [...] accomodation 02/15/2013 None Full Exam - General 1994 Ears/Nose/Throat otoscopic exam Overall: external auditory canals clear 02/15/2013 None Full Exam - General 1994 Ears/Nose/Throat otoscopic exam Overall: tympanic membranes clear 02/15/2013 None Full Exam - General 1994 Ears/Nose/Throat [...] tenderness 02/15/2013 None Full Exam - General 1995 Abdomen abdominal exam Overall: normal bowel sounds [...] normal 12/15/2012 None Full Exam - General 1994 Eyes conjunctiva /eyelids Overall: cornea clear 12/15/2012 None Full Exam - General 1994 Constitutional general appearance Overall: well nourished 12/15/2012 None Full Exam - General 1994 Constitutional general appearance Overall: well developed 12/15/2012 None Full Exam - General 1994 Constitutional general appearance Overall: in no acute distress 12/15/2012 None Full Exam - General 1994 Ears/Nose/Throat oral cavity/pharynx/larynx Overall: no masses 11/30/2012 [...] time 11/30/2012 None Full Exam - General 1995 Constitutional general appearance Overall: well developed 11/30/2012 [...] CPT-4: J3301 12/12/2014 THER/PROPH/DIAG INJ SC/IM CPT-4: 25732 12/12/2014 FLU VACC 4 CECILIA 3 YRS PLUS IM SNOMED CT: 51717900 CPT-4: 54392 07/03/2014 ADMIN INFLUENZA VIRUS VAC Assigned to/Lorraine White CPT-4: [id number] 07/03/2014 ROUTINE VENIPUNCTURE CPT-4: 87739 12/04/2013 TRIAMCINOLONE ACET INJ NOS CPT-4: J3301 12/04/2013 THER/PROPH/DIAG INJ SC/IM CPT-4: 86962 12/04/2013 ROUTINE VENIPUNCTURE CPT-4: 33145 07/02/2013 THER/PROPH/DIAG INJ SC/IM CPT-4: 68467 07/02/2013 PROMETHAZINE HCL INJECTION CPT-4: J2550 07/02/2013 PRESCRIP TRANSMIT VIA ERX SY CPT-4: G8553 07/02/2013 TRIAMCINOLONE ACET INJ NOS CPT-4: J3301 06/18/2013 THER/PROPH/DIAG INJ SC/IM CPT-4: 40235 06/18/2013 URINALYSIS NONAUTO W/O SCOPE CPT-4: 70682 06/18/2013 PRESCRIP TRANSMIT VIA ERX SY CPT-4: G8553 06/18/2013 VITAMIN B12 INJECTION CPT-4: J3420 02/15/2013 PRESCRIP TRANSMIT VIA ERX SY CPT-4: G8553 02/15/2013 ROUTINE VENIPUNCTURE CPT-4: 87975 12/05/2012 PRESCRIP TRANSMIT VIA ERX SY CPT-4: G8553 11/30/2012 Vital Signs Date Vital 10/18/2017 Blood Pressure 1: 134/84 Code : 8480-6 BMI: 29.0 Code : 59966-8 Heart Rate 1 : 71 bpm Height: 5'5" SpO2: 98% Weight: 174 lbs 08/31/2017 Blood Pressure 1: 134/76 Code : 8480-6 BMI: 29.5 Code : 95010-8 Heart Rate 1 : 78 bpm Height: 5'5" SpO2: 96% Weight: 177 lbs 06/21/2017 Blood Pressure 1: 136/82 Code : 8480-6 BMI: 29.6 Code : 17803-1 Heart Rate 1 : 76 bpm Height: 5'5" SpO2: 98% Weight: 178 lbs 06/14/2017 Blood Pressure 1: 132/74 Code : 8480-6 BMI: 29.0 Code : 93913-7 Heart Rate 1 : 71 bpm Height: 5'5" SpO2: 97% Weight: 174 lbs 05/13/2017 Blood Pressure 1: 122/80 Code : 8480-6 BMI: 29.6 Code : 22259-5 Heart Rate 1 : 88 bpm Height: 5'5" SpO2: 97% Temperature: 37.1 (C) / 98.7 (F) Weight: 178 lbs 11/30/2016 Blood Pressure 1: 136/70 Code : 8480-6 BMI: 31.6 Code : 14213-9 Heart Rate 1 : 74 bpm Height: 5'5" SpO2: 96% Weight: 190 lbs 11/16/2016 Blood Pressure 1: 124/76 Code : 8480-6 BMI: 32.1 Code : 17275-4 Heart Rate 1 : 94 bpm Height: 5'5" SpO2: 97% Weight: 193 lbs 06/10/2016 Blood Pressure 1: 128/86 Code : 8480-6 BMI: 30.3 Code : 02765-2 Heart Rate 1 : 88 bpm Height: 5'5" SpO2: 98% Weight: 182 lbs 04/13/2016 Blood Pressure 1: 102/56 Code : 8480-6 BMI: 30.5 Code : 63665-4 Heart Rate 1 : 63 bpm Height: 5'5" SpO2: 94% Weight: 183 lbs 03/22/2016 Blood Pressure 1: 138/78 Code : 8480-6 BMI: 30.5 Code : 85251-3 Heart Rate 1 : 63 bpm Height: 5'5" SpO2: 97% Weight: 183 lbs 03/02/2016 Blood Pressure 1: 122/72 Code : 8480-6 BMI: 30.8 Code : 01855-1 Heart Rate 1 : 71 bpm Height: 5'5" SpO2: 97% Weight: 185 lbs 02/23/2016 Blood Pressure 1: 146/86 Code : 8480-6 BMI: 30.3 Code : 41676-5 Heart Rate 1 : 100 bpm Height: 5'5" SpO2: 98% Weight: 182 lbs 01/09/2016 Blood Pressure 1: 138/74 Code : 8480-6 BMI: 31.6 Code : 50184-4 Heart Rate 1 : 83 bpm Height: 5'5" SpO2: 95% Weight: 190 lbs 12/09/2015 Blood Pressure 1: 140/70 Code : 8480-6 BMI: 30.5 Code : 67978-5 Heart Rate 1 : 73 bpm Height: 5'5" SpO2: 93% Weight: 183 lbs 11/14/2015 Blood Pressure 1: 174/84 Code : 8480-6 Blood Pressure 1: 156/84 Code: 8480-6 BMI: 31.6 Code: 58034-5 Heart Rate 1: 70 bpm Height: 5'5" SpO2: 97% Weight: 190 lbs 10/31/2015 Blood Pressure 1: 138/80 Code : 8480-6 BMI: 31.5 Code : 32256-4 Heart Rate 1 : 82 bpm Height: 5'5" SpO2: 98% Weight: 189 lbs 12/12/2014 Blood Pressure 1: 150/80 Code : 8480-6 BMI: 30.1 Code : 37971-2 Heart Rate 1 : 68 bpm Height: 5'5" Weight: 181 lbs 11/11/2014 Blood Pressure 1: 132/84 Code : 8480-6 BMI: 31.0 Code : 40586-5 Heart Rate 1 : 72 bpm Height: 5'5" Weight: 186 lbs 07/03/2014 Blood Pressure 1: 128/88 Code : 8480-6 BMI: 31.8 Code : 88960-7 Heart Rate 1 : 84 bpm Height: 5'5" SpO2: 96% Weight: 191 lbs 12/04/2013 Blood Pressure 1: 124/90 Code : 8480-6 BMI: 31.5 Code : 09384-1 Heart Rate 1 : 84 bpm Height: 5'5" Weight: 189 lbs 11/13/2013 Blood Pressure 1: 124/78 Code : 8480-6 BMI: 31.5 Code : 67152-3 Heart Rate 1 : 72 bpm Height: 5'5" Weight: 189 lbs 07/16/2013 Blood Pressure 1: 136/82 Code : 8480-6 BMI: 31.0 Code : 95647-9 Heart Rate 1 : 80 bpm Height: 5'5" Weight: 186 lbs 07/02/2013 Blood Pressure 1: 118/84 Code : 8480-6 BMI: 30.1 Code : 73929-9 Heart Rate 1 : 84 bpm Height: 5'5" SpO2: 98% Temperature: 36.3 (C) / 97.3 (F) Weight: 181 lbs 06/18/2013 Blood Pressure 1: 134/80 Code : 8480-6 BMI: 30.5 Code : 27644-3 Heart Rate 1 : 80 bpm Height: 5'5" Temperature: 36.1 (C) / 97.0 (F) Weight: 183 lbs 02/15/2013 Blood Pressure 1: 136/82 Code : 8480-6 BMI: 30.6 Code : 12625-3 Heart Rate 1 : 84 bpm Height: 5'5" Respiratory Rate: 16 bpm Weight: 184 lbs 12/15/2012 Blood Pressure 1: 140/78 Code : 8480-6 BMI: 31.5 Code : 32168-2 Heart Rate 1 : 68 bpm Height: 5'5" Weight: 189 lbs 11/30/2012 Blood Pressure 1: 132/70 Code : 8480-6 BMI: 31.7 Code : 80943-6 Heart Rate 1 : 84 bpm Height: [...] data Encounters Encounter Performer Location Codes Date 22410 EST. PATIENT, LEVEL III Diagnosis: Generalized anxiety disorder[ICD10: F41.1] Diagnosis: Major depressive disorder, single episode, moderate[ICD10: F32.1] Diagnosis: Other psoriasis[ICD10: L40.8] Diagnosis: Periapical abscess without sinus[ICD10: K04.7] Cydney Sheridan MD, [facility] CPT-4: 14203 10/18/2017 80426 EST. PATIENT, LEVEL III Diagnosis: Gastro-esophageal reflux disease without esophagitis[ICD10: K21.9] Diagnosis: Generalized anxiety disorder[ICD10: F41.1] Diagnosis: Major depressive disorder, single episode, moderate[ICD10: F32.1] Diagnosis: Other psoriasis[ICD10: L40.8] Cydney Sheridan MD, [facility] CPT-4 : 38612 08/31/2017 35189 EST. PATIENT, LEVEL III Diagnosis: Gastro-esophageal reflux disease without esophagitis[ICD10: K21.9] Diagnosis: Generalized anxiety disorder[ICD10: F41.1] Diagnosis: Major depressive disorder, single episode, moderate[ICD10: F32.1] Cydney Sheridan MD, [facility] CPT-4: 84046 06/21/2017 66451 EST. PATIENT, LEVEL IV Diagnosis: Other psoriasis[ICD10: L40.8] Diagnosis: Major depressive disorder, single episode, unspecified[ICD10: F32.9] Diagnosis: Other pruritus[ICD10: L29.8] Diagnosis: Gastro-esophageal reflux disease without esophagitis[ICD10: K21.9] Cydney Sheridan MD, [facility] CPT-4: 61181 06/14/2017 ([id number]) 65073 EST. PATIENT, LEVEL IV Diagnosis: Generalized abdominal pain[ICD10: R10.84] Diagnosis: Infectious gastroenteritis and colitis, unspecified[ICD10: A09] Diagnosis: Nausea[ICD10: R11.0] Ingrid Sheridan MD, [facility] CPT-4: 62282 05/13/2017 13770 EST. PATIENT, LEVEL III Diagnosis: Other psoriasis[ICD10: L40.8] Cydney Sheridan MD, [facility] CPT-4 : 82478 11/30/2016 53816 EST. PATIENT, LEVEL IV Diagnosis: Other psoriasis[ICD10: L40.8] Cydney Sheridan MD, [facility] CPT-4 : 88726 11/16/2016 ([id number]) 43644 EST. PATIENT, LEVEL III Diagnosis: Primary generalized (osteo)arthritis[ICD10: M15.0] Diagnosis: Other chronic pain[ICD10: G89.29] Ingrid Sheridan MD, [facility] CPT-4: 00457 06/10/2016 ([id number]) 61786 EST. PATIENT, LEVEL IV Diagnosis: Muscle weakness (generalized)[ICD10: M62.81] Diagnosis: Pain in right hand[ICD10: M79.641] Diagnosis: Pain in left hand[ICD10: M79.642] Diagnosis: Major depressive disorder, single episode, unspecified[ICD10: F32.9] Ingrid Sheridan MD, [facility] CPT-4: 30991 04/13/2016 ([id number]) 89790 EST. PATIENT, LEVEL III Diagnosis: Vitamin D deficiency, unspecified[ICD10: E55.9] Diagnosis: Cellulitis of chest wall[ICD10: L03.313] Abril Sheridan MD, [facility] CPT-4: 13963 03/22/2016 ([id number]) 36671 EST. PATIENT, LEVEL IV Diagnosis: Cellulitis of chest wall[ICD10: L03.313] Diagnosis: Pain in right wrist[ICD10: M25.531] Diagnosis: Muscle weakness (generalized)[ICD10: M62.81] Diagnosis: Major depressive disorder, single episode, unspecified[ICD10: F32.9] Abril Sheridan MD, [facility] CPT-4: 20536 03/02/2016 59027 EST. PATIENT, LEVEL IV Diagnosis: Pain in right wrist[ICD10: M25.531] Diagnosis: Tinea corporis[ICD10: B35.4] Diagnosis: Major depressive disorder, single episode, unspecified[ICD10: F32.9] Diagnosis: Vitamin D deficiency, unspecified[ICD10: E55.9] Cydney Sheridan MD, [facility] CPT-4: 19249 02/23/2016 ([id number]) 35211 EST. PATIENT, LEVEL III Diagnosis: Tinea corporis[ICD10: B35.4] Diagnosis: Pain in right wrist[ICD10: M25.531] Ingrid Sheridan MD, [facility] CPT-4: 76696 01/09/2016 ([id number]) 80042 EST. PATIENT, LEVEL III Diagnosis: Tinea corporis[ICD10: B35.4] Diagnosis: Nausea[ICD10: R11.0] Ingrid Sheridan MD, [facility] CPT-4: 27754 12/09/2015 ([id number]) 41432 EST. PATIENT, LEVEL III Diagnosis: Tinea corporis[ICD10: B35.4] Diagnosis: Rash and other nonspecific skin eruption[ICD10: R21] Ingrid Sheridan MD, [facility] CPT-4: 21105 11/14/2015 ([id number]) 02202 EST. PATIENT, LEVEL IV Diagnosis: Tinea corporis[ICD10: B35.4] Diagnosis: Rash and other nonspecific skin eruption[ICD10: R21] Diagnosis: Major depressive disorder, single episode, unspecified[ICD10: F32.9] Diagnosis: Vitamin B12 deficiency anemia, unspecified[ICD10: D51.9] Diagnosis: Vitamin D deficiency, unspecified[ICD10: E55.9] Diagnosis: Mixed hyperlipidemia[ICD10: E78.2] Ingrid Sheridan MD, [facility] CPT-4: 07918 10/31/2015 ([id number]) 78324 EST. PATIENT, LEVEL III Diagnosis: Biceps tendonitis[ICD9: 726.12] Abril Sheridan MD, [facility] CPT- 4: 41004 12/12/2014 ([id number]) 55468 EST. 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 PATIENT, LEVEL IV Diagnosis: Sleep-disordered breathing[ICD9: 780.59] Diagnosis: Fatigue[ICD9: 780.79] Diagnosis: Diaphoresis[ICD9: 780.8] Diagnosis: Tinea corporis[ICD9: 110.5] Abril Sheridan MD, [facility] CPT- 4: 38570 07/03/2014 ([id number]) 09377 EST. PATIENT, LEVEL IV Diagnosis: HYPERLIPIDEMIA[ICD9: 272.4] Diagnosis: DEPRESSIVE DISORDER NEC[ICD9: 311] Diagnosis: Rash[ICD9: 782.1] Diagnosis: Sciatica[ICD9: 724.3] Abril Sheridan MD, [facility] CPT-4: 73292 12/04/2013 ([id number]) 28036 EST. PATIENT, LEVEL III Diagnosis: Tinea corporis[ICD9: 110.5] Ingrid Sheridan MD, [facility] CPT-4: 06615 11/13/2013 ([id number]) 61536 EST. PATIENT, LEVEL III Diagnosis: ESOPHAGEAL REFLUX[ICD9: 530.81] Diagnosis: Post menopausal syndrome[ICD9: V49.81] Abril Sheridan MD, [facility] CPT-4: 42364 07/16/2013 ([id number]) 85253 EST. PATIENT, LEVEL IV Diagnosis: ESOPHAGEAL REFLUX[ICD9: 530.81] Diagnosis: MALAISE AND FATIGUE[ICD9: 780.79] Diagnosis: Abdominal pain[ICD9: 789.00] Diagnosis: B12 DEFIC ANEMIA NEC[ICD9: 281.1] Abril Sheridan MD, [facility] CPT-4: 72038 07/02/2013 ([id number]) 67709 EST. PATIENT, LEVEL III Diagnosis: Acute back pain[ICD9: 724.5] Diagnosis: Chills[ICD9: 780.64] Diagnosis: Acute oral pain[ICD9: 528.9] Abril Sheridan MD, [facility] CPT- 4: 82782 06/18/2013 [id number] EST. PATIENT, LEVEL IV Diagnosis: ESOPHAGEAL REFLUX[ICD9: 530.81] Diagnosis: VITAMIN D DEFICIENCY[ICD9: 268.9] Diagnosis: Vitamin B12 deficiency[ICD9: 266.2] Diagnosis: Vitamin B12 deficiency (dietary) anemia[ICD9: 281.1] Diagnosis: DEPRESSIVE DISORDER NEC[ICD9: 311] [facility] CPT-4: 00636 02/15/2013 ([id number] [id number] EST. PATIENT, LEVEL IV Diagnosis: Hyperlipidemia[ICD9: 272.4] Diagnosis: VITAMIN D DEFICIENCY[ICD9: 268.9] Diagnosis: Elevated blood sugar[ICD9: 790.29] Diagnosis: Elevated blood pressure[ICD9: 796.2] Diagnosis: MALAISE AND FATIGUE[ICD9: 780.79] Ingrid Sheridan MD, [facility] CPT-4: 94109 12/15/2012 ([id number] EST. 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 08/31/2017 [facility] [phone] [phone] ([facility]) Moderate 08/31/2017 Patient Education: Patient Medication Summary Completed 08/31/2017 Referral: Raghav Perales Referral Initiated 07/11/2017 Referral: Raghav Perales pt scheduled Initiated 06/27/2017 Visit Plan: Esophageal [...] patient. 06/21/2017 [facility] [phone] [phone] ([facility]) Complex 06/21/2017 Patient Education: Patient Medication Summary Completed 06/21/2017 Care Plan: Referral Order SNOMED-CT : [id number] Pending 06/19/2017 Visit Plan: Psoriasis - Defer [...] improved. 05/13/2017 Appointment: Ingrid Llanes WPtel: [phone] [phone] [place] (10 min) Simple 05/13/2017 Patient Education: Patient Medication Summary Completed 05/13/2017 Patient Education: Patient Medication Summary Completed 01/13/2017 Appointment: Abril Sheridan WPtel: [phone] [phone] [place] (15 min) Moderate 12/09/2016 Visit Plan: Psoriasis - symptoms have improved from previous appointment - she is wanting to start Otezla - Spoke with Dr. Woods office on the phone, they are OK with prescribing the medication - appointment date and time given to pt. Pt is to notify clinic with any questions or concerns. 11/30/2016 Appointment: Cydney Gilbert WPtel: [phone] [phone] (30 min) Complex 11/30/2016 Patient Education: Patient [...] pruritus. 11/16/2016 Appointment: Cydney Gilbert WPtel: [phone] [phone] (30 min) Complex 11/16/2016 Patient Education: Patient [...] Obesity Completed 06/10/2016 [facility]: [facility] [phone] [phone] (15 min) Moderate 06/04/2016 Visit Plan: Inflammation of multiple joints including wrists, hands and muscles aches of legs-recheck inflammatory markers plus uric acid, elle, rf-kenlaog injection today in the office-start prednisone taper tomorrow Rtfyeunlxs-mzmzuhsb-th change in medication 04/13/2016 Patient Education: Patient [...] Patient Education: Obesity Completed 03/02/2016 Referral: Tj Pak Referral Completed 02/26/2016 Care Plan: Referral Order SNOMED-CT : [id number] Pending 02/24/2016 Visit Plan: Right wrist pain [...] this patient. 02/23/2016 Appointment: Cydney Gilbert WPtel: [phone] [facility] (15 min) Moderate 02/23/2016 Patient Education: Patient Medication Summary Completed 02/23/2016 Patient Education: Obesity Completed 02/23/2016 Appointment: Ingrid Llanes WPtel: [phone] [phone] [place] (15 min) Moderate 01/29/2016 Visit Plan: Tinea-start [...] instructed on use-follow up in 2 weeks Fgkwccfeoj-rapfontww-fcl vitamin B12 and folic acid-check labs Hyerlipidemia- check labs 10/31/2015 Appointment: Ingrid Llanesl: [address] [place], [place] [phone] (15 min) Moderate 10/31/2015 Patient Education: Patient Medication Summary Completed 10/31/2015 Visit Plan: Biceps tendinitis - pt to do exercises as directed, ant-inflammatories directed to be taken per RX instructions and pt to call if symptoms are not improved. 12/12/2014 Appointment: Abril Sheridan WPtel: [address] [place], [place] [phone] Follow up 12/12/2014 Patient Education: Patient Medication Summary Completed 12/12/2014 Appointment: Abril Sheridan WPtel: [address] [place], [place] [id number] [place] [address] follow up 12/11/2014 Visit Plan: Hyperlipidemia - [...] for diflucan. 11/11/2014 Appointment: Abril Sheridan WPtel: [address] [place], [place] [phone] Follow up 11/11/2014 Patient Education: Patient Medication Summary Completed 11/11/2014 Care Plan: COMPLETE CBC AUTOMATED LOINC : 03318-8 Ordered 11/11/2014 Appointment: Abril Sheridan WPtel: [address] [place], [place] [phone] Follow up 11/04/2014 Visit Plan: Sleep disordered breathing - recommended appt for sleep apnea evaluation - appt with agllo on 07/16/14 @240pm Tinea - RX sent electronically to the pt's pharmacy. 07/03/2014 Appointment: Abril Sheridan WPtel: [address] [place], [place] [phone] Follow up 07/03/2014 Patient Education: Patient Medication [...] check labs. 12/04/2013 Appointment: Abril Sheridan WPtel: [address] [place], [place] [phone] Other 12/04/2013 Patient Education: Patient Medication Summary Completed 12/04/2013 Visit Plan: Tinea-discussed natural and expected course of this diagnosis and to alert me if symptoms do not follow expected course, or if any worse, RX sent to patient's pharmacy and instructed on use. Patient verbalized understanding of plan. 11/13/2013 Appointment: Ingrid Llanes WPtel: [address] [place], [place] [phone] [place] Other 11/13/2013 Patient Education: Patient Medication Summary Completed 11/13/2013 Appointment: Abril Sheridan WPtel: [address] [place], [place] [phone] [place] Follow up 10/16/2013 Visit Plan: Esophageal Reflux [...] not improving. 07/16/2013 Appointment: Abril Sheridan WPtel: [address] [place], [place] [phone] Follow up 07/16/2013 Patient Education: Patient Medication [...] not improve. 07/02/2013 Appointment: Abril Sheridan WPtel: [address] [place] [address] Other 07/02/2013 Patient Education: Patient Medication Summary [...] not improving. 06/18/2013 Appointment: Abril Sheridan WPtel: [facility] Other 06/18/2013 Patient Education: Patient Medication Summary Completed 06/18/2013 Appointment: Abril Sheridan WPtel: [phone] [facility] Follow up 03/01/2013 Visit Plan: Esophageal Reflux [...] units daily. 02/15/2013 [phone] [facility] up 02/15/2013 Patient Education: Patient Medication [...] as well. 12/15/2012 Appointment: [facility]el[phone] Follow up 12/15/2012 Patient Education: Patient Medication [...] current medications. 11/30/2012 Appointment: Abril Sheridan WPtel: [facility] New Patient 11/30/2012 Patient Education: Patient Medication Summary Completed 11/30/2012 Appointment: Abril Sheridan WPtel: [address] [place], [place] [phone] New Patient 10/24/2012 Referral: [facility] Pak [facility] Referral: Raghav Perales Referral Initiated Instructions Comment PREDNISONE 10MG 6-5-4-3-2-1 START TOMORROW!! OK TO TAKE HYDROCODONE NEEDED HOLD IBUPROFEN UNTIL YOU ARE FINISHED WITH THE PREDNISONE . Inflammation of multiple joints including wrists, hands and muscles aches of legs-recheck inflammatory markers plus uric acid, elle, rf-kenlaog injection today in the office-start prednisone taper tomorrow Dgdercdhen-xkyltwvk-na change in medication . Tinea-continue Diflucan-start clotrimazole as directed Gastroenteritis-symptoms improved-call if symptoms do not resolve or if any worse . Cellulitis of chest wall - improving - but not completely resolved - refilled gentamycin drops for topical treatment of infection. Vitamin D deficiency - resume daily vitamin D supplementation. Hand pain - pt to keep appt with specialist for treatment of wrist derrangement. LEVAQUIN 500MG DAILY X 10 DAYS KEEP CLEAN AND DRY STOP USING MUPIROCIN OINTMENT-USE ONLY THE NYSTATIN POWDER LET AIR OUT WHEN ABLE FOLLOW UP IN 10 DAYS PRESCRIPTION FOR HYDROXYZINE TO USE NEEDED AT BEDTIME FOR ITCHING . Rash- culture grew pseudomonas-recommend repeat course of levaquin-continue nystatin powder and keep clean/dry. Follow up in 10 days . Sleep disordered breathing - recommended appt for sleep apnea evaluation - appt with gallo on 07/16/14 @240pm Tinea - RX sent electronically to the pt's pharmacy. cbc, cmp CT ABD/PELVIS Clear liquid diet-advance as tolerated . Infectious enteritis - discussed need to stay away from milk products while acutely ill with diarrhea and nausea and emesis as it may worsen the symptoms. Liquids initially until the nausea improves, then recommend to advance to bland diet for 1 day, then advance as tolerated. Call if symptoms not improved. decrease lexapro to 1/2 pill x 2 [...] has been appropriately prescribed for this patient. DIFLUCAN 150MG DAILY X 10 DAYS THEN WEEKLY X 4 WEEKS KEEP GROIN AND BREASTS DRY USE NYSTATIN POWDER 4 TIMES DAILY VITAMIN B12 2000MCG DAILY FOLIC ACID 1MG DAILY . Rash-cultured today in the office-Rx for diflucan and nystatin provided and instructed on use-follow up in 2 weeks Felqvsxnry-nrgmubvfy-vnl vitamin B12 and folic acid-check labs Hyerlipidemia-check labs pt to start on carafate four times [...] pain is worsening or does not improve. Will change from Cymbalta to Lexapro - [...] been appropriately prescribed for this patient. . Chronic Depression and anxiety - the pt has symptoms of chronic anxiety and depression that have been fairly well controlled since the last office visit. The pt has expected periods of exacerbation with abatement of the symptoms with change in situational exposure. No change in current medications. 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 Biceps tendinitis - pt to do exercises as directed, ant- inflammatories directed to be taken per RX instructions and pt to call if symptoms are not improved. Jon[employer] Kr[employer] oil 1 tab twice [...] to repeat in 3 months as well. CALL TUESDAY WITH UPDATE . Tinea-discussed natural and expected course of this diagnosis and to alert me if symptoms do not follow expected course, or if any worse, RX sent to patient's pharmacy and instructed on use. Patient verbalized understanding of plan. Vitamin D 5000 units daily [employer] - get two old goats [...] directed at appt a few days ago . Chronic Depression and anxiety - the [...] in pain, worsening redness, warmth, discharge. . Esophageal Reflux - the patient has been counseled against excessive intake of caffiene, spicy foods, peppermint, and cinnamon - all of which can exacerbate esophageal reflux. The patient is to take medications as prescribed and call the office if the symptoms are not improving. Post menopausal - pt to continue with estradiol, monitor symptoms, call if not improving. . Psoriasis Flare - Pt states that she has been seeing Dr. Woods, who wants to start her on Humira - she states that she does not want to start Humira, but has seen commercials for Otezla and she would like to try that - Will discuss with Dr. Sheridan - will send RX for acute flare and pruritus. 1. will send hydroxyzine to take as [...] office if the symptoms are not improving. . Hyperlipidemia - pt has [...] 7.5mg daily. Rash - rx for diflucan. Appointment with Dr. Woods on at 9 [...] clinic with any questions or concerns. . Back pain - uncertain eitiology - [...] oral infection and call if not improving. recommended pt to increase the nystatin powder [...] d supplementation. Hyperlipidemia - check labs. . Arthritis- occasionally uncontrolled symptoms- recommend pt to take antiinflammatory as directed for pain control. Use tylenol for break through pain symptoms. Chronic Pain Syndrome - pt has chronic pain - has been maintained on current medications, has not sought out other medications, only uses PRN pain medications as directed, and understands the consequences of over-medication. . Tinea-start triamcinolone/ketoconazole cream twice daily Right [...] on vitamin D 2000 units daily. . Esophageal Reflux - the patient has [...]
[2018-06-16] MEDS: TETRACAINE 0.5% OPHTH SOLN 4 ML BTL (SINGLE DOSE ONLY) OU PRN ×3 (07:38→07:50)
--- OUTSIDE RECORDS SUMMARY | 2018-06-16 07:40 | XMS REPORT | CCD ---
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 Name Role Phone PP Unavailable CCM Unavailable Summary Purpose Interface Exchange Insurance Providers Payer name Policy type / Coverage type Covered green party ID Effective Begin Date Effective End Date WPS Medicare Part B Medicare Part B [id number] Unknown Unknown [employer] Medicare Part B [id number] Unknown Unknown Family history Sister Diagnosis Age [...] Description Effective Dates Tobacco history SNOMED CT: 756782207 Never smoker 11/30/[address]: 835662330 Never drinks alcohol 11/30/2012 Has the patient [...] Instructions Cymbalta 30 mg capsule,delayed release RxNorm: 963041 1 Capsule(s) PO daily 10/18/2017 04/15/2018 Active clindamycin HCl 300 mg capsule RxNorm: 581072 1 Capsule(s) PO TID 10/18/2017 10/27/2017 Active tramadol 50 mg tablet RxNorm: 665045 1 Tablet(s) PO TID as needed 10/18/2017 No Stop Date Active Cymbalta 30 mg capsule,delayed release RxNorm: 773012 1 Capsule(s) PO daily 10/04/2017 10/17/2017 Inactive Cymbalta 30 mg capsule,delayed release RxNorm: 012521 1 Capsule(s) PO daily 10/04/2017 10/03/2017 Inactive betamethasone dipropionate 0.05 % topical cream RxNorm: 087926 1 Application TOP BID 08/31/2017 No Stop Date Active prednisone 20 mg tablet RxNorm: 567162 2 Tablet(s) PO daily 09/04/2017 Inactive Wellbutrin XL 150 mg 24 hr tablet, extended release RxNorm: 239050 1 Tablet(s) PO daily 07/26/2017 10/17/2017 Inactive Wellbutrin XL 150 mg 24 hr tablet, extended release RxNorm: 318027 1 Tablet(s) PO daily 06/21/2017 07/20/2017 Inactive hydroxyzine HCl 25 mg tablet RxNorm: 279306 1 Tablet(s) PO TID as needed 06/14/2017 No Stop Date Active itching/insomnia Pepcid 20 mg tablet RxNorm: 324794 1 Tablet(s) PO BID 201606/23/2017 Inactive Flagyl 500 mg tablet RxNorm: 032926 1 Tablet(s) PO TID 201605/22/2017 Inactive Cipro 500 mg tablet RxNorm: 543079 1 Tablet(s) PO BID 201605/22/2017 Inactive Lexapro 20 mg tablet RxNorm: 902219 Tablet(s) TAKE ONE TABLET BY MOUTH ONCE DAILY 03/04/2017 08/15/2017 Inactive Nexium 40 mg capsule,delayed release RxNorm: 340299 TAKE ONE CAPSULE BY MOUTH ONCE DAILY 02/14/2017 08/15/2017 Inactive Vitamin D2 50,000 unit capsule RxNorm: 887918 1 Capsule(s) PO QW 01/19/2017 04/12/2017 Inactive one weekly for 12 weeks then 2000 units daily thereafter Lexapro 20 mg tablet RxNorm: 204261 TAKE ONE TABLET BY MOUTH ONCE DAILY 01/14/2017 03/03/2017 Inactive betamethasone dipropionate 0.05 % topical ointment RxNorm: 927614 1 Application TOP BID in between gentamycin applications 11/16/2016 No Stop Date Active prednisone 10 mg tablet RxNorm: 283150 Tablet(s) PO UD 201610/17/2017 Inactive 6,6,5,5,4,4,3,3,2,2,1,1, then 1/2 every other day x 2 doses Lexapro 20 mg tablet RxNorm: 237700 Tablet(s) 1 Tablet(s) PO daily 08/27/2016 03/03/2017 Inactive Lexapro 20 mg tablet RxNorm: 314137 1 Tablet(s) PO daily 201508/26/2016 Inactive Lexapro 20 mg tablet RxNorm: 982671 1 Tablet(s) PO daily 201508/24/2016 Inactive Lexapro 20 mg tablet RxNorm: 795539 1 Tablet(s) PO daily 201507/21/2016 Inactive hydrocodone 5 mg-acetaminophen 325 mg tablet RxNorm: 468752 1 Tablet(s) PO Q6 PRN 06/10/2016 No Stop Date Active hydroxyzine HCl 25 mg tablet RxNorm: 447597 1 Tablet(s) PO HS PRN 06/10/2016 07/09/2016 Inactive itching/anxiety/insomnia meloxicam 7.5 mg tablet RxNorm: 367520 2 Tablet(s) PO daily 05/201608/16/2017 Inactive Lexapro 20 mg tablet RxNorm: 831181 1 Tablet(s) PO daily 201506/10/2016 Inactive prednisone 10 mg tablets in a dose pack RxNorm: 937489 1 Tablet(s) PO UD 04/13/2016 04/18/2016 Inactive 6-5-4-3-2-1 Kenalog 40 mg/mL suspension for injection RxNorm: 6841852 Milliliter(s) Inj 04/13/2016 04/13/2016 Inactive Lexapro 20 mg tablet RxNorm: 034357 1 Tablet(s) PO daily 201504/29/2016 Inactive Vitamin D3 5,000 unit tablet RxNorm: 146646 2 Tablet(s) PO daily 03/22/2016 No Stop Date Active gentamicin 0.1 % topical ointment RxNorm: 234283 1 Application TOP QID to affected skin tissue 03/22/20162015 Inactive folic acid 1 mg tablet RxNorm: 758636 1 Tablet(s) PO daily 10/17/2017 Inactive betamethasone dipropionate 0.05 % topical ointment RxNorm: 646465 1 Application TOP BID in between gentamycin applications 03/15/2016 11/15/2016 Inactive gentamicin 0.1 % topical ointment RxNorm: 855553 1 Application TOP QID to affected skin tissue 03/02/20162015 Inactive ciprofloxacin 500 mg tablet RxNorm: 788196 1 Tablet(s) PO BID 03/02/2016 03/11/2016 Inactive nystatin 100,000 unit/gram topical cream RxNorm: 485214 1 Application TOP BID 02/23/2016 No Stop Date Active Lexapro 20 mg tablet RxNorm: 437445 1 Tablet(s) PO daily 201503/23/2016 Inactive prednisone 20 mg tablet RxNorm: 770558 2 Tablet(s) PO daily 02/27/2016 Inactive Ultram 50 mg tablet RxNorm: 679940 1 Tablet(s) PO Q6 PRN as needed 02/19/2016 03/01/2016 Inactive duloxetine 60 mg capsule,delayed release RxNorm: 930855 1 Capsule(s) PO daily 01/26/2016 03/01/2016 Inactive [SAVINGS FOR UNINSURED PATIENTS -- BIN:391859, PCN: ASPROD1, Group: AME08, ID# [id number], Process claim through Synthace, for questions: . THIS IS NOT INSURANCE.] Nexium 40 mg capsule,delayed release RxNorm: 379751 1 Tablet(s) PO daily 01/09/2016 04/02/2017 Inactive [SAVINGS FOR NON-COVERED DRUGS -- BIN:866914, PCN: ASPROD1, Group: XXXXX, ID# [id number], Questions: . THIS IS NOT INSURANCE.] ketoconazole 2 % topical cream RxNorm: 687533 1 Application TOP BID 01/09/2016 01/22/2016 Inactive triamcinolone acetonide 0.1 % topical cream RxNorm: 6782658 1 Application TOP BID 01/09/2016 01/22/2016 Inactive Nexium 40 mg capsule,delayed release RxNorm: 386617 1 Tablet(s) PO daily 01/09/2016 01/08/2016 Inactive [SAVINGS FOR NON-COVERED DRUGS -- BIN:478871, PCN: ASPROD1, Group: XXXXX, ID# [id number], Questions: . THIS IS NOT INSURANCE.] Diflucan 150 mg tablet RxNorm: 985463 1 Tablet(s) PO daily 05/201602/06/2016 Inactive daily x 7 days then weekly x 4 weeks clotrimazole 1 % topical cream RxNorm: 388399 1 Application TOP BID 12/09/2015 12/22/2015 Inactive hydroxyzine HCl 25 mg tablet RxNorm: 521541 1 Tablet(s) PO HS PRN 11/14/2015 06/13/2017 Inactive itching/insomnia Levaquin 500 mg tablet RxNorm: 394414 1 Tablet(s) PO daily 09/201611/23/2015 Inactive Vitamin D2 50,000 unit capsule RxNorm: 921698 1 Capsule(s) PO QW 11/05/2015 01/27/2016 Inactive one weekly for 12 weeks then 2000 units daily thereafter duloxetine 60 mg capsule,delayed release RxNorm: 757103 1 Capsule(s) PO daily 11/04/2015 01/25/2016 Inactive [SAVINGS FOR UNINSURED PATIENTS -- BIN:949953, PCN: ASPROD1, Group: AME08, ID# [id number], Process claim through Synthace, for questions: . THIS IS NOT INSURANCE.] Levaquin 500 mg tablet RxNorm: 077940 1 Tablet(s) PO daily hold diflucan while on the ABX then resume diflucan once completed 11/03/2015 11/09/2015 Inactive Levaquin 500 mg tablet RxNorm: 059554 1 Tablet(s) PO daily 10/201511/02/2015 Inactive nystatin 100,000 unit/gram topical powder RxNorm: 105547 1 Application TOP QID apply to breast tissue, and abdominal folds 10/31/2015 12/29/2015 Inactive dispense quantity sufficient Diflucan 150 mg tablet RxNorm: 609582 1 Tablet(s) PO daily 11/13/2015 Inactive daily x 10 days then weekly x 4 weeks Diflucan 150 mg tablet RxNorm: 654696 1 Tablet(s) PO every other day 10/08/2015 11/18/2015 Inactive [SAVINGS FOR UNINSURED PATIENTS -- BIN:389780, PCN: ASPROD1, Group: AME08, ID# [id number], Process claim through Synthace, for questions: [phone]. THIS IS NOT INSURANCE.] nystatin 100,000 unit/gram topical powder RxNorm: 563727 1 Application TOP QID apply to breast tissue, and abdominal folds 07/28/2015 08/24/2015 Inactive dispense quantity sufficient mupirocin 2 % topical ointment RxNorm: 837513 1 Application TOP TID apply under breast tissue and abdominal folds 07/24/2015 03/01/2016 Inactive dispense qs x 14 days nystatin 100,000 unit/gram topical powder RxNorm: 909107 1 Application TOP QID apply to breast tissue, and abdominal folds 07/24/2015 07/27/2015 Inactive dispense quantity sufficient pravastatin 20 mg tablet RxNorm: 260537 1 Tablet(s) PO daily 03/01/2016 Inactive [SAVINGS FOR UNINSURED PATIENTS -- BIN:357621, PCN: ASPROD1, Group: AME08 , ID# [id number], Process claim through Synthace, for questions: . THIS IS NOT INSURANCE.] Nexium 40 mg capsule,delayed release RxNorm: 841887 TAKE ONE CAPSULE BY MOUTH ONCE DAILY 12/30/2014 06/27/2015 Inactive Nexium 40 mg capsule,delayed release RxNorm: 520707 1 Tablet(s) PO daily 12/30/2014 01/08/2016 Inactive [SAVINGS FOR NON-COVERED DRUGS -- BIN:864665, PCN: ASPROD1, Group: XXXXX, ID# [id number], Questions: . THIS IS NOT INSURANCE.] prednisone 20 mg tablet RxNorm: 445147 3 Tablet(s) PO daily 09/201512/16/2014 Inactive [SAVINGS FOR NON-COVERED DRUGS -- BIN:746060, PCN: ASPROD1, Group: XXXXX, ID# [id number], Questions: . THIS IS NOT INSURANCE.] Kenalog 40 mg/mL suspension for injection RxNorm: 6840108 Milliliter(s) Inj 12/12/2014 12/12/2014 Inactive [SAVINGS FOR NON-COVERED DRUGS -- BIN:261814, PCN: ASPROD1, Group: XXXXX, ID# [id number], Questions: . THIS IS NOT INSURANCE.] pravastatin 10 mg tablet RxNorm: 826497 1 Tablet(s) PO daily 11/17/2014 Inactive pravastatin 10 mg tablet RxNorm: 200258 1 Tablet(s) PO daily 11/17/2014 Inactive [SAVINGS FOR UNINSURED PATIENTS -- BIN:452003, PCN: ASPROD1, Group: AME08 , ID# [id number], Process claim through MedImpact, for questions: . THIS IS NOT INSURANCE.] pravastatin 10 mg tablet RxNorm: 464193 1 Tablet(s) PO daily 06/15/2015 Inactive pravastatin 10 mg tablet RxNorm: 854971 1 Tablet(s) PO daily 03/02/2015 Inactive [SAVINGS FOR UNINSURED PATIENTS -- BIN:336922, PCN: ASPROD1, Group: AME08 , ID# [id number], Process claim through MedImpact, for questions: . THIS IS NOT INSURANCE.] duloxetine 60 mg capsule,delayed release RxNorm: 413293 1 Capsule(s) PO daily 11/11/2014 06/08/2015 Inactive [SAVINGS FOR UNINSURED PATIENTS -- BIN:083120, PCN: ASPROD1, Group: AME08, ID# [id number], Process claim through MedImpact, for questions: . THIS IS NOT INSURANCE.] Brisdelle 7.5 mg capsule RxNorm: 2452391 1 Capsule(s) PO daily 11/11/2014 01/09/2015 Inactive [SAVINGS FOR UNINSURED PATIENTS -- BIN:661631, PCN: ASPROD1, Group: AME08, ID# [id number], Process claim through MedImpact, for questions: [phone]. THIS IS NOT INSURANCE.] Diflucan 150 mg tablet RxNorm: 796937 1 Tablet(s) PO every other day 11/11/2014 12/22/2014 Inactive [SAVINGS FOR UNINSURED PATIENTS -- BIN:315741, PCN: ASPROD1, Group: AME08, ID# [id number], Process claim through MedImpact, for questions: [phone]. THIS IS NOT INSURANCE.] nystatin 100,000 unit/gram topical powder RxNorm: 047399 1 Application TOP QID apply to breast tissue, and abdominal folds 07/15/2014 07/28/2014 Inactive dispense quantity sufficient Diflucan 150 mg tablet RxNorm: 055038 1 Tablet(s) PO daily 10/201307/07/2014 Inactive mupirocin 2 % topical ointment RxNorm: 259300 1 Application TOP TID apply under breast tissue and abdominal folds 05/17/2014 06/13/2014 Inactive dispense qs x 14 days gemfibrozil 600 mg tablet RxNorm: 335999 1 Tablet(s) PO BID 08/201412/10/2013 Inactive gemfibrozil 600 mg tablet RxNorm: 679876 1 Tablet(s) PO BID 08/201403/02/2015 Inactive Medrol ([place]arm[place]) 4 mg tablets in a dose pack RxNorm: 014387 Tablet(s) PO as directed 12/05/2013 06/03/2014 Inactive Ultram 50 mg tablet RxNorm: 364407 1 Tablet(s) PO Q6 PRN 12/0502/18/2016 Inactive nystatin 100,000 unit/gram topical powder RxNorm: 127488 1 Application TOP QID apply to breast tissue, and abdominal folds 12/04/2013 07/02/2014 Inactive dispense quantity sufficient Nexium 40 mg capsule,delayed release RxNorm: 217867 1 Tablet(s) PO daily 12/04/2013 12/29/2014 Inactive Kenalog 40 mg/mL suspension for injection RxNorm: 1705860 Milliliter(s) Inj 12/04/2013 12/04/2013 Inactive mupirocin 2 % topical ointment RxNorm: 664068 1 Application TOP TID apply under breast tissue and abdominal folds 12/04/2013 12/17/2013 Inactive dispense qs x 14 days Cymbalta 60 mg capsule,delayed release RxNorm: 048719 1 Capsule(s) PO daily 12/04/2013 11/10/2014 Inactive Diflucan 150 mg tablet RxNorm: 729454 1 Tablet(s) PO daily 11/28/2013 Inactive Cymbalta 60 mg capsule,delayed release RxNorm: 776891 1 Capsule(s) PO daily 11/13/2013 12/03/2013 Inactive Diflucan 150 mg tablet RxNorm: 437365 1 Tablet(s) PO daily 08/201411/19/2013 Inactive nystatin 100,000 unit/gram topical powder RxNorm: 112650 1 Gram(s) TOP BID 11/13/2013 11/22/2013 Inactive Vitamin D2 50,000 unit capsule RxNorm: 019650 1 Capsule(s) PO QW 07/03/2013 No Stop Date Active one weekly for 12 weeks then 2000 units daily thereafter sucralfate 100 mg/mL Oral Susp RxNorm: 982438 10 Milliliter(s) PO QID 07/02/2013 10/29/2013 Inactive estradiol 0.5 mg tablet RxNorm: 757728 1 Tablet(s) PO daily 07/02/2014 Inactive promethazine 25 mg/mL Injection RxNorm: 353074 Milliliter(s) Inj 07/02/2013 07/02/2013 Inactive Kenalog 40 mg/mL Susp for Injection RxNorm: 8372098 Milliliter(s) Inj 06/18/2013 06/18/2013 Inactive clindamycin 300 mg capsule RxNorm: 623155 1 Capsule(s) PO TID 06/18/2013 06/24/2013 Inactive meloxicam 7.5 mg tablet RxNorm: 889487 1 Tablet(s) PO daily 07/01/2013 Inactive Cymbalta 60 mg capsule,delayed release RxNorm: 461186 1 Capsule(s) PO daily 05/07/2013 11/02/2013 Inactive Nexium 40 mg capsule,delayed release RxNorm: 284776 1 Tablet(s) PO daily 02/15/2013 09/12/2013 Inactive Vitamin D2 50,000 unit capsule RxNorm: 404154 1 Capsule(s) PO QW 12/07/2012 03/06/2013 Inactive one weekly for 12 weeks then 2000 units daily thereafter Vitamin D2 50,000 unit capsule RxNorm: 386112 1 Capsule(s) PO QW 12/07/2012 12/06/2012 Inactive one weekly for 12 weeks then 2000 units daily thereafter pantoprazole 40 mg tablet,delayed release RxNorm: 085806 1 Tablet(s) PO QPM 11/30/2012 02/14/2013 Inactive sucralfate 100 mg/mL Oral Susp RxNorm: 694042 10 Milliliter(s) PO QID 10 ML by mouth before meals and before bed 11/30/2012 02/15/2013 Inactive multivitamin tablet RxNorm: 1 Tablet(s) PO daily No Start Date Active jonny Red Nabb 3 Krill Oil RxNorm: 1 PO BID No Start Date Active Xanax 0.5 mg tablet RxNorm: 706662 1/2 to 1 Tablet(s) PO Q6 PRN No Start Date 03/01/2016 Inactive Cymbalta 60 mg capsule,delayed release RxNorm: 629476 1 Capsule(s) PO daily No Start Date 05/06/2013 Inactive betamethasone dipropionate 0.05 % topical ointment RxNorm: 057089 1 Application TOP BID in between gentamycin applications No Start Date 03/14/2016 Inactive Aleve 220 mg tablet RxNorm: 341418 2 Tablet(s) PO daily No Start Date 03/21/2016 Inactive Vitamin B-12 1,000 mcg tablet RxNorm: 076201 1 Tablet(s) PO daily No Start Date 10/17/2017 Inactive Vitamin D3 2,000 unit capsule RxNorm: 080848 1 Capsule(s) PO daily No Start Date 12/12/2013 Inactive omeprazole 20 mg capsule,delayed release RxNorm: 477716 1 Capsule(s) PO daily No Start Date 11/30/2012 Inactive Ultram 50 mg tablet RxNorm: 438202 1 Tablet(s) PO Q6 PRN No Start Date 12/04/2013 Inactive folic acid oral RxNorm : oral No Start Date 03/21/2016 Inactive Vitamin D3 5,000 unit tablet RxNorm: 341399 1 Tablet(s) PO daily No Start Date 03/21/2016 Inactive Calcium 500 + D (D3) 500 mg-125 unit tablet RxNorm: 265697 1 Tablet(s) PO daily No Start Date 03/21/2016 Inactive Medrol (Carmine) 4 mg tablets in a dose pack RxNorm: 794740 Tablet(s) PO as doctor directed No Start Date 12/04/2013 Inactive Medication Administered Medication Codes Instructions Start Date Status Kenalog 40 mg/mL suspension for injection RxNorm: 7673135 Milliliter 04/13/2016 No longer Active Kenalog 40 mg/mL suspension for injection RxNorm: 1449541 Milliliter 12/12/2014 No longer Active Kenalog 40 mg/mL suspension for injection RxNorm: 1937141 Milliliter 12/04/2013 No longer Active promethazine 25 mg/mL Injection RxNorm: 372385 Milliliter 07/02/2013 No longer Active Kenalog 40 mg/mL Susp for Injection RxNorm: 1235756 Milliliter 06/18/2013 No longer Active Immunizations Vaccine [...] Code Result Date Vitamin D 25 Oh [id number] VITAMIN D, 25 HYDROXY 34.42 ng/mL Cbc [...] 31.8 pg 01/13/2017 Cbc With Differential Ord2 [place]% 6.7 % 01/13/2017 Cbc With Differential Ord2 [...] 2.96 K/ul 01/13/2017 Cbc With Differential Ord2 [place] ABS# 0.5 K/ul 01/13/2017 Cbc With Differential Ord2 Eos ABS# 0.2 K/ul 01/13/2017 Cbc With Differential Ord2 Baso ABS# 0.0 K/ul 01/13/2017 B12 Xdp264 B12 562.00 pg/ml 01/13/2017 Elle Reflex Profile [id number] ELLE (ARVIND) SCREEN NONE DETECTED 04/17/2016 Cbc [...] 30.8 pg 04/13/2016 Cbc With Differential Ord2 [place]% 6.7 % 04/13/2016 Cbc With Differential Ord2 [...] 3.86 K/ul 04/13/2016 Cbc With Differential Ord2 [place] ABS# 0.6 K/ul 04/13/2016 Cbc With Differential Ord2 Eos ABS# 0.1 K/ul 04/13/2016 Cbc With Differential Ord2 Baso ABS# 0.0 K/ul 04/13/2016 Ra Factor Kzk982 RA FACTOR <10 IU/ml 04/13/2016 Comp Metabolic Xnb602 NA 138 mEq/L 04/13/2016 Comp Metabolic Lkn677 K 3.7 mEq/L 04/13/2016 Comp Metabolic Zji484 CL 104 mEq/L 04/13/2016 Comp Metabolic Bjn727 CO2 25.0 mEq/L 04/13/2016 Comp Metabolic Fyg710 ANION GAP 13 04/13/2016 Comp Metabolic Fgu006 GLUCOSE 146 mg/dL 04/13/2016 Comp Metabolic Rek918 Creat 0.9 mg/dL 04/13/2016 Comp Metabolic Sto518 eGFR 69 ml/min/1.73m2 04/13/2016 Comp Metabolic Nom675 BUN 14 mg/dL 04/13/2016 Comp Metabolic Hxe844 B/C Ratio 16.5 Ratio 04/13/2016 Comp Metabolic Atg760 CALCIUM 9.5 mg/dL 04/13/2016 Comp Metabolic Xfa453 ALK PHOS 107 U/L 04/13/2016 Comp Metabolic Uir597 AST(SGOT) 16 U/L 04/13/2016 Comp Metabolic Eax785 ALT(SGPT) 17 U/L 04/13/2016 Comp Metabolic Ceu523 BILI T 0.2 mg/dL 04/13/2016 Comp Metabolic Neb763 ALBUMIN 4.0 g/dL 04/13/2016 Comp Metabolic Eek850 TPRO 6.6 g/dL 04/13/2016 Comp Metabolic Kyr885 GLOB 2.6 g/dL 04/13/2016 Comp Metabolic Vtc051 A/G Ratio 1.5 Ratio 04/13/2016 Comp Metabolic Qvf371 Osmo 279 mOsmo 04/13/2016 Sed Rate Ord21 ESR 36 mm/hr 04/13/2016 Uric Acid Ord77 Uric A 6.7 mg/dL 04/13/2016 C-Reactive Protein Qnt Crqnt CRP 1.3 mg/dl 04/13/2016 Vitamin D 25 Oh Obf4885 VITAMIN D, 25 HYDROXY 49.37 ng/mL Comp Metabolic Zmj175 NA 136 mEq/L 02/24/2016 Comp Metabolic Ush741 K 4.2 mEq/L 02/24/2016 Comp Metabolic Ykm256 CL 98 mEq/L 02/24/2016 Comp Metabolic Ein507 CO2 30.0 mEq/L 02/24/2016 Comp Metabolic Zds540 ANION GAP 12 02/24/2016 Comp Metabolic Jor898 GLUCOSE 115 mg/dL 02/24/2016 Comp Metabolic Ziu047 Creat 0.9 mg/dL 02/24/2016 Comp Metabolic Cgv921 eGFR 67 ml/min/1.73m2 02/24/2016 Comp Metabolic Hpz519 BUN 22 mg/dL 02/24/2016 Comp Metabolic Sgs017 B/C Ratio 25.3 Ratio 02/24/2016 Comp Metabolic Hun613 CALCIUM 9.8 mg/dL 02/24/2016 Comp Metabolic Zzv087 ALK PHOS 124 U/L 02/24/2016 Comp Metabolic Evf043 AST(SGOT) 19 U/L 02/24/2016 Comp Metabolic Sex004 ALT(SGPT) 18 U/L 02/24/2016 Comp Metabolic Ouz665 BILI T 0.4 mg/dL 02/24/2016 Comp Metabolic Gjb063 ALBUMIN 4.6 g/dL 02/24/2016 Comp Metabolic Dim188 TPRO 7.8 g/dL 02/24/2016 Comp Metabolic For918 GLOB 3.3 g/dL 02/24/2016 Comp Metabolic Mqy857 A/G Ratio 1.4 Ratio 02/24/2016 Comp Metabolic And078 Osmo 276 mOsmo 02/24/2016 Sed Rate Ord21 [...] 30.4 pg 02/24/2016 Cbc With Differential Ord2 [place]% 6.8 % 02/24/2016 Cbc With Differential Ord2 [...] 4.53 K/ul 02/24/2016 Cbc With Differential Ord2 [place] ABS# 0.7 K/ul 02/24/2016 Cbc With Differential [...] 31.3 pg 10/31/2015 Cbc With Differential Ord2 [place]% 7.2 % 10/31/2015 Cbc With Differential Ord2 [...] 3.41 K/ul 10/31/2015 Cbc With Differential Ord2 [place] ABS# 0.5 K/ul 10/31/2015 Cbc With Differential Ord2 Eos ABS# 0.2 K/ul 10/31/2015 Cbc With Differential Ord2 Baso ABS# 0.0 K/ul 10/31/2015 Cbc With Differential Ord2 New Analyzer Notice Please note new ref ranges starting 10-15-2015 due to implemntation of new five part differential hematolgy analyzer. 10/31/2015 Vitamin D 25 Oh Aoc2674 VITAMIN D, 25 HYDROXY 33.87 ng/mL Tsh Ord6 hTSH II 4.37 uIU/mL 10/31/2015 Lipid Ord30 CHOL 168 mg/dL 10/31/2015 Lipid Ord30 HDL 30.0 mg/dl 10/31/2015 Lipid Ord30 TRIG 293 mg/dL 10/31/2015 Lipid Ord30 LDL 79 mg/dL 10/31/2015 Lipid Ord30 C/HDL 5.6 Ratio 10/31/2015 B12 Qfq226 B12 327.00 pg/ml 10/31/2015 Comp Metabolic Hfx169 NA 140 mEq/L 10/31/2015 Comp Metabolic Oqp564 K 4.0 mEq/L 10/31/2015 Comp Metabolic Jpd801 CL 103 mEq/L 10/31/2015 Comp Metabolic Wkf101 CO2 29.0 mEq/L 10/31/2015 Comp Metabolic Cvs422 ANION GAP 12 10/31/2015 Comp Metabolic Apx323 GLUCOSE 104 mg/dL 10/31/2015 Comp Metabolic Mxc501 Creat 0.9 mg/dL 10/31/2015 Comp Metabolic Rut158 eGFR 62 ml/min/1.73m2 10/31/2015 Comp Metabolic Efc945 BUN 13 mg/dL 10/31/2015 Comp Metabolic Nej566 B/C Ratio 13.8 Ratio 10/31/2015 Comp Metabolic Udx958 CALCIUM 9.5 mg/dL 10/31/2015 Comp Metabolic Qae746 ALK PHOS 102 U/L 10/31/2015 Comp Metabolic Lqo011 AST(SGOT) 19 U/L 10/31/2015 Comp Metabolic Gae903 ALT(SGPT) 17 U/L 10/31/2015 Comp Metabolic Uyc757 BILI T 0.3 mg/dL 10/31/2015 Comp Metabolic Wkg130 ALBUMIN 4.1 g/dL 10/31/2015 Comp Metabolic Xga357 TPRO 6.8 g/dL 10/31/2015 Comp Metabolic Fan500 GLOB 2.7 g/dL 10/31/2015 Comp Metabolic Qna055 A/G Ratio 1.5 Ratio 10/31/2015 Comp Metabolic Cew977 Osmo 280 mOsmo 10/31/2015 GFR CALC 9590251 GFR AA 59.0L ML/MIN 02/28/2015 GFR CALC 2801071 GFR NON-AA 49.0L ML/MIN 02/28/2015 CHEM 14 9387217 AST 19 U/L 02/28/2015 CHEM 14 5463193 ALT 15 IU/L 02/28/2015 CHEM 14 0354301 BUN 16 MG/DL 02/28/2015 CHEM 14 7486342 ALBUMIN 4.7 GM/DL 02/28/2015 CHEM 14 5738002 CHLORIDE 99 MMOL/L 02/28/2015 CHEM 14 8207497 BILI TOT 0.5 MG/DL 02/28/2015 CHEM 14 4194567 ALK PHOS 111 U/L 02/28/2015 CHEM 14 1894425 SODIUM 135 MMOL/L 02/28/2015 CHEM 14 0542110 CREATININE 1.10 MG/DL 02/28/2015 CHEM 14 9801035 CALCIUM 10.1 MG/DL 02/28/2015 CHEM 14 5843243 POTASSIUM 4.0 MMOL/L 02/28/2015 CHEM 14 5503531 PROT TOT 8.2 GM/DL 02/28/2015 CHEM 14 5282031 GLUCOSE 123 MG/DL 02/28/2015 CHEM 14 7586755 BICARB 29 MMOL/L 02/28/2015 CHEM 14 9089254 ANION GAP 7 MEQ/L 02/28/2015 LIPID GRP [...] GRP RCHOL/HDL 6.15 RATIO 11/11/2014 LIPID GRP 9938705 NON-HDL CH 175 MG/DL 11/11/2014 CBC 2880170 WBC 6.6 10e9/L 11/11/2014 CBC 2298708 RBC 4.89 10e12/L 11/11/2014 CBC 4518001 HGB 15.2 g/dL 11/11/2014 CBC 2981745 HCT DET 45.2 % 11/11/2014 CBC 1407822 MCV 92.4 fL 11/11/2014 CBC 5472412 MCH 31.1 pg 11/11/2014 CBC 7715463 MCHC 33.6 g/dL 11/11/2014 CBC 5105499 PLT 275 10e9/L 11/11/2014 CBC 9517753 MPV 10.1 fL 11/11/2014 CBC 7251565 RC % 43.7 % 11/11/2014 CBC 2923645 LY % 46.5 % 11/11/2014 CBC 8045989 MON % 7.2 % 11/11/2014 CBC 0876094 EOS % 2.0 % 11/11/2014 CBC 9827117 BASO % 0.6 % 11/11/2014 CBC 6980800 RDW 13.3 % 11/11/2014 CBC 9059018 ABS RC 2.88 10e9/L 11/11/2014 CBC 4793773 ABS LYMPH 3.07 10e9/L 11/11/2014 CBC 4905701 ABS MONO 0.48 10e9/L 11/11/2014 CBC 2644312 ABS EOS 0.13 10e9/L 11/11/2014 CBC 6185666 ABS BASO 0.04 10e9/L 11/11/2014 CBC 4441755 RDW-SD 44.1 fL 11/11/2014 CHEM 14 7524925 AST 20 U/L 11/11/2014 CHEM 14 8056654 ALT 14 IU/L 11/11/2014 CHEM 14 1671285 BUN 13 MG/DL 11/11/2014 CHEM 14 8282855 ALBUMIN 4.4 GM/DL 11/11/2014 CHEM 14 5214759 CHLORIDE 104 MMOL/L 11/11/2014 CHEM 14 6403852 BILI TOT 0.3 MG/DL 11/11/2014 CHEM 14 9565516 ALK PHOS 113 U/L 11/11/2014 CHEM 14 7317317 SODIUM 140 MMOL/L 11/11/2014 CHEM 14 4156141 CREATININE 0.98 MG/DL 11/11/2014 CHEM 14 2510845 CALCIUM 9.6 MG/DL 11/11/2014 CHEM 14 8681183 POTASSIUM 3.9 MMOL/L 11/11/2014 CHEM 14 0669535 PROT TOT 7.5 GM/DL 11/11/2014 CHEM 14 2543602 GLUCOSE 102 MG/DL 11/11/2014 CHEM 14 2600384 BICARB 28 MMOL/L 11/11/2014 CHEM 14 1674309 ANION GAP 8 MEQ/L 11/11/2014 GFR CALC 6988851 GFR AA >60 ML/MIN 11/11/2014 GFR CALC 8799365 GFR NON-AA 55.0L ML/MIN 11/11/2014 TSH 3515634 TSH 2.055 uIU/ML 11/11/2014 TSH 0564731 TSH 2.956 uIU/ML 12/04/2013 A1C HPLC 5968300 A1C HPLC 21829-4 5.4 % 12/04/2013 GFR CALC 6252078 GFR AA >60 ML/MIN 12/04/2013 GFR CALC 4486528 GFR NON-AA 57.0L ML/MIN 12/04/2013 CBC 9859770 WBC 7.2 10e9/L 12/04/2013 CBC 3624872 RBC 4.98 10e12/L 12/04/2013 CBC 1401890 HGB 15.8 g/dL 12/04/2013 CBC 3124638 HCT DET 46.0 % 12/04/2013 CBC 6378707 MCV 92.4 fL 12/04/2013 CBC 7362372 MCH 31.7 pg 12/04/2013 CBC 2590741 MCHC 34.3 g/dL 12/04/2013 CBC 3148282 PLT 266 10e9/L 12/04/2013 CBC 0718565 MPV 9.9 fL 12/04/2013 CBC 6978340 RC % 49.1 % 12/04/2013 CBC 3922950 LY % 41.9 % 12/04/2013 CBC 3984163 MON % 6.5 % 12/04/2013 CBC [id number] EOS % 1.8 % 12/04/2013 CBC 3806049 BASO % 0.7 % 12/04/2013 CBC 7083622 RDW 13.3 % 12/04/2013 CBC 6894841 ABS RC 3.54 10e9/L 12/04/2013 CBC 1177752 ABS LYMPH 3.02 10e9/L 12/04/2013 CBC 5452023 ABS MONO 0.47 10e9/L 12/04/2013 CBC 8572969 ABS EOS 0.13 10e9/L 12/04/2013 CBC 9057983 ABS BASO 0.05 10e9/L 12/04/2013 CBC 6826178 RDW-SD 44.0 fL 12/04/2013 VIT D TOTL 8494671 VIT D TOTL 29 NG/ML 12/04/2013 LIPID GRP HDL TEST 33 MG/DL 12/04/2013 LIPID GRP TRIG 291 MG/DL 12/04/2013 LIPID GRP TEST LDL 124 MG/DL 12/04/2013 LIPID GRP CHOL 215 MG/DL 12/04/2013 LIPID GRP RCHOL/HDL 6.52 RATIO 12/04/2013 CHEM 14 9667166 AST 20 U/L 12/04/2013 CHEM 14 7425636 ALT 18 IU/L 12/04/2013 CHEM 14 1588438 BUN 13 MG/DL 12/04/2013 CHEM 14 7587147 ALBUMIN 4.5 GM/DL 12/04/2013 CHEM 14 5381683 CHLORIDE 104 MMOL/L 12/04/2013 CHEM 14 0580068 BILI TOT 0.3 MG/DL 12/04/2013 CHEM 14 6084881 ALK PHOS 92 U/L 12/04/2013 CHEM 14 6553702 SODIUM 140 MMOL/L 12/04/2013 CHEM 14 6092026 CREATININE 0.96 MG/DL 12/04/2013 CHEM 14 6163743 CALCIUM 9.8 MG/DL 12/04/2013 CHEM 14 9468179 POTASSIUM 4.2 MMOL/L 12/04/2013 CHEM 14 9099323 PROT TOT 7.1 GM/DL 12/04/2013 CHEM 14 4590037 GLUCOSE 111 MG/DL 12/04/2013 CHEM 14 9621465 BICARB 27 MMOL/L 12/04/2013 CHEM 14 8265731 ANION GAP 9 MEQ/L 12/04/2013 CHEM 14 7907013 AST 19 U/L 07/02/2013 CHEM 14 4094924 ALT 20 IU/L 07/02/2013 CHEM 14 4846094 BUN 17 MG/DL 07/02/2013 CHEM 14 0056231 ALBUMIN 4.9 GM/DL 07/02/2013 CHEM 14 5606277 CHLORIDE 103 MMOL/L 07/02/2013 CHEM 14 0566838 BILI TOT 0.3 MG/DL 07/02/2013 CHEM 14 3702977 ALK PHOS 108 U/L 07/02/2013 CHEM 14 6059288 SODIUM 139 MMOL/L 07/02/2013 CHEM 14 2920755 CREATININE 1.01 MG/DL 07/02/2013 CHEM 14 4108475 CALCIUM 10.1 MG/DL 07/02/2013 CHEM 14 6027531 POTASSIUM 4.2 MMOL/L 07/02/2013 CHEM 14 9093237 PROT TOT 7.5 GM/DL 07/02/2013 CHEM 14 1570026 GLUCOSE 94 MG/DL 07/02/2013 CHEM 14 1389894 BICARB 29 MMOL/L 07/02/2013 CHEM 14 8520209 ANION GAP 7 MEQ/L 07/02/2013 CBC 5848627 WBC 11.1 10e9/L 07/02/2013 CBC 8826109 RBC 5.08 10e12/L 07/02/2013 CBC 3026626 HGB 16.1 g/dL 07/02/2013 CBC 2321822 HCT DET 46.6 % 07/02/2013 CBC 1905835 MCV 91.7 fL 07/02/2013 CBC 1406608 MCH 31.7 pg 07/02/2013 CBC 8573044 MCHC 34.5 g/dL 07/02/2013 CBC 1903471 PLT 287 10e9/L 07/02/2013 CBC 5384620 MPV 9.6 fL 07/02/2013 CBC 0037487 RC % 56.1 % 07/02/2013 CBC 2655960 LY % 35.3 % 07/02/2013 CBC 9405038 MON % 7.1 % 07/02/2013 CBC 5821683 EOS % 1.2 % 07/02/2013 CBC 9942795 BASO % 0.3 % 07/02/2013 CBC 9333081 RDW 14.1 % 07/02/2013 CBC 5168569 ABS RC 6.23 10e9/L 07/02/2013 CBC 4289602 ABS LYMPH 3.92 10e9/L 07/02/2013 CBC 4624050 ABS MONO 0.79 10e9/L 07/02/2013 CBC 4387475 ABS EOS 0.13 10e9/L 07/02/2013 CBC 5282684 ABS BASO 0.03 10e9/L 07/02/2013 CBC 2206423 RDW-SD 46.1 fL 07/02/2013 VIT B 12 1199923 VIT B 12 672 PG/ML 07/02/2013 GFR CALC 3015237 GFR AA >60 ML/MIN 07/02/2013 GFR CALC 5760305 GFR NON-AA 54.0L ML/MIN 07/02/2013 FREE T4 3845953 FREE T4 1.09 NG/DL 07/02/2013 TSH 8490082 TSH 1.599 uIU/ML 07/02/2013 VIT D TOTL 2569026 VIT D TOTL 29 NG/ML 07/02/2013 A1C HPLC 9235531 A1C HPLC 94830-8 5.9 % 12/06/2012 LIPID GRP HDL TEST 28 MG/DL 12/05/2012 LIPID GRP TRIG 237 MG/DL 12/05/2012 LIPID GRP TEST LDL 98 MG/DL 12/05/2012 LIPID GRP CHOL 173 MG/DL 12/05/2012 LIPID GRP RCHOL/HDL 6.18 RATIO 12/05/2012 VIT D TOTL 9767975 VIT D TOTL 16 NG/ML 12/05/2012 CBC 3076918 WBC 8.0 10e9/L 12/05/2012 CBC 8301542 RBC 4.83 10e12/L 12/05/2012 CBC 7340136 HGB 15.1 g/dL 12/05/2012 CBC 8359748 HCT DET 44.0 % 12/05/2012 CBC 1778702 MCV 91.1 fL 12/05/2012 CBC 8166678 MCH 31.3 pg 12/05/2012 CBC 1392307 MCHC 34.3 g/dL 12/05/2012 CBC 4914668 PLT 260 10e9/L 12/05/2012 CBC 1654363 MPV 10.0 fL 12/05/2012 CBC 8690457 RC % 41.9 % 12/05/2012 CBC 9637032 LY % 48.1 % 12/05/2012 CBC 6693054 MON % 7.6 % 12/05/2012 CBC 9118258 EOS % 1.9 % 12/05/2012 CBC 6186495 BASO % 0.5 % 12/05/2012 CBC 9837596 RDW 13.4 % 12/05/2012 CBC 2558976 ABS RC 3.35 10e9/L 12/05/2012 CBC 5823652 ABS LYMPH 3.85 10e9/L 12/05/2012 CBC 4206021 ABS MONO 0.61 10e9/L 12/05/2012 CBC 6008466 ABS EOS 0.15 10e9/L 12/05/2012 CBC 5078777 ABS BASO 0.04 10e9/L 12/05/2012 CBC 6634056 RDW-SD 43.4 fL 12/05/2012 CHEM 14 8673225 AST 21 U/L 12/05/2012 CHEM 14 4445345 ALT 24 IU/L 12/05/2012 CHEM 14 3079989 BUN 14 MG/DL 12/05/2012 CHEM 14 1105027 ALBUMIN 4.3 GM/DL 12/05/2012 CHEM 14 6857653 CHLORIDE 106 MMOL/L 12/05/2012 CHEM 14 3749184 BILI TOT 0.4 MG/DL 12/05/2012 CHEM 14 2600567 ALK PHOS 102 U/L 12/05/2012 CHEM 14 5631041 SODIUM 141 MMOL/L 12/05/2012 CHEM 14 8852921 CREATININE 0.96 MG/DL 12/05/2012 CHEM 14 7579041 CALCIUM 9.8 MG/DL 12/05/2012 CHEM 14 3280885 POTASSIUM 4.1 MMOL/L 12/05/2012 CHEM 14 8107585 PROT TOT 6.8 GM/DL 12/05/2012 CHEM 14 8662764 GLUCOSE 107 MG/DL 12/05/2012 CHEM 14 8151387 BICARB 28 MMOL/L 12/05/2012 CHEM 14 6414842 ANION GAP 7 MEQ/L 12/05/2012 FERRITIN 8383133 FERRITIN 151 NG/ML 12/05/2012 MAGNESIUM 1038881 MAGNESIUM 1.6 MEQ/L 12/05/2012 CRP 4802572 CRP 0.6 MG/DL 12/05/2012 FOLIC ACID 1841897 FOLIC ACID 12.2 NG/ML 12/05/2012 VIT B 12 2933166 VIT B 12 389 PG/ML 12/05/2012 TSH 4742482 TSH 3.097 uIU/ML 12/05/2012 GFR CALC 4500602 GFR AA >60 ML/MIN 12/05/2012 GFR CALC 1752901 GFR NON-AA 57.0L ML/MIN 12/05/2012 %SAT/TIBC 7972409 TIBC 305 UG/DL 12/05/2012 %SAT/TIBC 4839089 % SATURAT 25 % 12/05/2012 %SAT/TIBC 1235254 UIBC 229 MCG/DL 12/05/2012 ESR 6706110 ESR 14 MM/HR 12/05/2012 IRON TEST 7420269 IRON TEST 76 UG/DL 12/05/2012 UA 47875 Specific [place] 1.030 DateTime(Free Text in ) UA 20995 PH 5.0 DateTime(Free Text in ) UA 13936 GLUCOSE neg DateTime(Free Text in ) UA 93725 Protein neg DateTime(Free Text in ) UA 04646 Blood neg DateTime(Free Text in Apr) UA 42806 Bilirubin neg DateTime(Free Text in Apr) UA 66681 Ketones neg DateTime(Free Text in ) UA 97004 Urobilinogen neg DateTime(Free Text in ) UA 33995 Nitrite neg DateTime(Free Text in ) UA 08044 Leukocytes trace DateTime(Free Text in ) Review [...] CPT-4: J3301 12/12/2014 THER/PROPH/DIAG INJ SC/IM CPT-4: 19901 12/12/2014 FLU VACC 4 CECILIA 3 YRS PLUS IM SNOMED CT: 31349550 CPT-4: 13271 07/03/2014 ADMIN INFLUENZA VIRUS VAC Assigned to/Lorraine White CPT-4: U7923Ynpbhiu 07/03/2014 ROUTINE VENIPUNCTURE CPT-4: 31554 12/04/2013 TRIAMCINOLONE ACET INJ NOS CPT-4: J3301 12/04/2013 THER/PROPH/DIAG INJ SC/IM CPT-4: 83599 12/04/2013 ROUTINE VENIPUNCTURE CPT-4: 13227 07/02/2013 THER/PROPH/DIAG INJ SC/IM CPT-4: 29345 07/02/2013 PROMETHAZINE HCL INJECTION CPT-4: J2550 07/02/2013 PRESCRIP TRANSMIT VIA ERX SY CPT-4: G8553 07/02/2013 TRIAMCINOLONE ACET INJ NOS CPT-4: J3301 06/18/2013 THER/PROPH/DIAG INJ SC/IM CPT-4: 05452 06/18/2013 URINALYSIS NONAUTO W/O SCOPE CPT-4: 63029 06/18/2013 PRESCRIP TRANSMIT VIA ERX SY CPT-4: G8553 06/18/2013 VITAMIN B12 INJECTION CPT-4: J3420 02/15/2013 PRESCRIP TRANSMIT VIA ERX SY CPT-4: G8553 02/15/2013 ROUTINE VENIPUNCTURE CPT-4: 04836 12/05/2012 PRESCRIP TRANSMIT VIA ERX SY CPT-4: G8553 11/30/2012 Vital Signs Date Vital 10/18/2017 Blood Pressure 1: 134/84 Code : 8480-6 BMI: 29.0 Code : 60049-6 Heart Rate 1 : 71 bpm Height: 5'5" SpO2: 98% Weight: 174 lbs 08/31/2017 Blood Pressure 1: 134/76 Code : 8480-6 BMI: 29.5 Code : 67672-1 Heart Rate 1 : 78 bpm Height: 5'5" SpO2: 96% Weight: 177 lbs 06/21/2017 Blood Pressure 1: 136/82 Code : 8480-6 BMI: 29.6 Code : 44302-7 Heart Rate 1 : 76 bpm Height: 5'5" SpO2: 98% Weight: 178 lbs 06/14/2017 Blood Pressure 1: 132/74 Code : 8480-6 BMI: 29.0 Code : 60277-8 Heart Rate 1 : 71 bpm Height: 5'5" SpO2: 97% Weight: 174 lbs 05/13/2017 Blood Pressure 1: 122/80 Code : 8480-6 BMI: 29.6 Code : 90665-1 Heart Rate 1 : 88 bpm Height: 5'5" SpO2: 97% Temperature: 37.1 (C) / 98.7 (F) Weight: 178 lbs 11/30/2016 Blood Pressure 1: 136/70 Code : 8480-6 BMI: 31.6 Code : 68820-8 Heart Rate 1 : 74 bpm Height: 5'5" SpO2: 96% Weight: 190 lbs 11/16/2016 Blood Pressure 1: 124/76 Code : 8480-6 BMI: 32.1 Code : 45020-5 Heart Rate 1 : 94 bpm Height: 5'5" SpO2: 97% Weight: 193 lbs 06/10/2016 Blood Pressure 1: 128/86 Code : 8480-6 BMI: 30.3 Code : 74098-6 Heart Rate 1 : 88 bpm Height: 5'5" SpO2: 98% Weight: 182 lbs 04/13/2016 Blood Pressure 1: 102/56 Code : 8480-6 BMI: 30.5 Code : 78330-5 Heart Rate 1 : 63 bpm Height: 5'5" SpO2: 94% Weight: 183 lbs 03/22/2016 Blood Pressure 1: 138/78 Code : 8480-6 BMI: 30.5 Code : 44644-8 Heart Rate 1 : 63 bpm Height: 5'5" SpO2: 97% Weight: 183 lbs 03/02/2016 Blood Pressure 1: 122/72 Code : 8480-6 BMI: 30.8 Code : 03896-7 Heart Rate 1 : 71 bpm Height: 5'5" SpO2: 97% Weight: 185 lbs 02/23/2016 Blood Pressure 1: 146/86 Code : 8480-6 BMI: 30.3 Code : 38208-6 Heart Rate 1 : 100 bpm Height: 5'5" SpO2: 98% Weight: 182 lbs 01/09/2016 Blood Pressure 1: 138/74 Code : 8480-6 BMI: 31.6 Code : 85592-4 Heart Rate 1 : 83 bpm Height: 5'5" SpO2: 95% Weight: 190 lbs 12/09/2015 Blood Pressure 1: 140/70 Code : 8480-6 BMI: 30.5 Code : 58294-1 Heart Rate 1 : 73 bpm Height: 5'5" SpO2: 93% Weight: 183 lbs 11/14/2015 Blood Pressure 1: 174/84 Code : 8480-6 Blood Pressure 1: 156/84 Code: 8480-6 BMI: 31.6 Code: 45239-8 Heart Rate 1: 70 bpm Height: 5'5" SpO2: 97% Weight: 190 lbs 10/31/2015 Blood Pressure 1: 138/80 Code : 8480-6 BMI: 31.5 Code : 57298-5 Heart Rate 1 : 82 bpm Height: 5'5" SpO2: 98% Weight: 189 lbs 12/12/2014 Blood Pressure 1: 150/80 Code : 8480-6 BMI: 30.1 Code : 17127-3 Heart Rate 1 : 68 bpm Height: 5'5" Weight: 181 lbs 11/11/2014 Blood Pressure 1: 132/84 Code : 8480-6 BMI: 31.0 Code : 35629-8 Heart Rate 1 : 72 bpm Height: 5'5" Weight: 186 lbs 07/03/2014 Blood Pressure 1: 128/88 Code : 8480-6 BMI: 31.8 Code : 93065-7 Heart Rate 1 : 84 bpm Height: 5'5" SpO2: 96% Weight: 191 lbs 12/04/2013 Blood Pressure 1: 124/90 Code : 8480-6 BMI: 31.5 Code : 29827-6 Heart Rate 1 : 84 bpm Height: 5'5" Weight: 189 lbs 11/13/2013 Blood Pressure 1: 124/78 Code : 8480-6 BMI: 31.5 Code : 33398-4 Heart Rate 1 : 72 bpm Height: 5'5" Weight: 189 lbs 07/16/2013 Blood Pressure 1: 136/82 Code : 8480-6 BMI: 31.0 Code : 73482-4 Heart Rate 1 : 80 bpm Height: 5'5" Weight: 186 lbs 07/02/2013 Blood Pressure 1: 118/84 Code : 8480-6 BMI: 30.1 Code : 09249-9 Heart Rate 1 : 84 bpm Height: 5'5" SpO2: 98% Temperature: 36.3 (C) / 97.3 (F) Weight: 181 lbs 06/18/2013 Blood Pressure 1: 134/80 Code : 8480-6 BMI: 30.5 Code : 89738-6 Heart Rate 1 : 80 bpm Height: 5'5" Temperature: 36.1 (C) / 97.0 (F) Weight: 183 lbs 02/15/2013 Blood Pressure 1: 136/82 Code : 8480-6 BMI: 30.6 Code : 89650-3 Heart Rate 1 : 84 bpm Height: 5'5" Respiratory Rate: 16 bpm Weight: 184 lbs 12/15/2012 Blood Pressure 1: 140/78 Code : 8480-6 BMI: 31.5 Code : 37489-1 Heart Rate 1 : 68 bpm Height: 5'5" Weight: 189 lbs 11/30/2012 Blood Pressure 1: 132/70 Code : 8480-6 BMI: 31.7 Code : 99530-1 Heart Rate 1 : 84 bpm Height: [...] data Encounters Encounter Performer Location Codes Date 11297 EST. PATIENT, LEVEL III Diagnosis: Generalized anxiety disorder[ICD10: F41.1] Diagnosis: Major depressive disorder, single episode, moderate[ICD10: F32.1] Diagnosis: Other psoriasis[ICD10: L40.8] Diagnosis: Periapical abscess without sinus[ICD10: K04.7] Cydney Sheridan MD, [facility] CPT-4: 75337 10/18/2017 09799 EST. PATIENT, LEVEL III Diagnosis: Gastro-esophageal reflux disease without esophagitis[ICD10: K21.9] Diagnosis: Generalized anxiety disorder[ICD10: F41.1] Diagnosis: Major depressive disorder, single episode, moderate[ICD10: F32.1] Diagnosis: Other psoriasis[ICD10: L40.8] Cydney Sheridan MD, [facility] CPT-4 : 40588 08/31/2017 57700 EST. PATIENT, LEVEL III Diagnosis: Gastro-esophageal reflux disease without esophagitis[ICD10: K21.9] Diagnosis: Generalized anxiety disorder[ICD10: F41.1] Diagnosis: Major depressive disorder, single episode, moderate[ICD10: F32.1] Cydney Sheridan MD, [facility] CPT-4: 96835 06/21/2017 97284 EST. PATIENT, LEVEL IV Diagnosis: Other psoriasis[ICD10: L40.8] Diagnosis: Major depressive disorder, single episode, unspecified[ICD10: F32.9] Diagnosis: Other pruritus[ICD10: L29.8] Diagnosis: Gastro-esophageal reflux disease without esophagitis[ICD10: K21.9] Cydney Sheridan MD, [facility] CPT-4: 59616 06/14/2017 ([id number]) 12577 EST. PATIENT, LEVEL IV Diagnosis: Generalized abdominal pain[ICD10: R10.84] Diagnosis: Infectious gastroenteritis and colitis, unspecified[ICD10: A09] Diagnosis: Nausea[ICD10: R11.0] Ingrid Sheridan MD, [facility] CPT-4: 36627 05/13/2017 11629 EST. PATIENT, LEVEL III Diagnosis: Other psoriasis[ICD10: L40.8] Cydney Sheridan MD, [facility] CPT-4 : 21650 11/30/2016 85035 EST. PATIENT, LEVEL IV Diagnosis: Other psoriasis[ICD10: L40.8] Cydney Sheridan MD, [facility] CPT-4 : 83007 11/16/2016 ([id number]) 28311 EST. PATIENT, LEVEL III Diagnosis: Primary generalized (osteo)arthritis[ICD10: M15.0] Diagnosis: Other chronic pain[ICD10: G89.29] Ingrid Sheridan MD, [facility] CPT-4: 40425 06/10/2016 ([id number]) 99676 EST. PATIENT, LEVEL IV Diagnosis: Muscle weakness (generalized)[ICD10: M62.81] Diagnosis: Pain in right hand[ICD10: M79.641] Diagnosis: Pain in left hand[ICD10: M79.642] Diagnosis: Major depressive disorder, single episode, unspecified[ICD10: F32.9] Ingrid Sheridan MD, [facility] CPT-4: 97308 04/13/2016 ([id number]) 80691 EST. PATIENT, LEVEL III Diagnosis: Vitamin D deficiency, unspecified[ICD10: E55.9] Diagnosis: Cellulitis of chest wall[ICD10: L03.313] Abril Sheridan MD, [facility] CPT-4: 52730 03/22/2016 ([id number]) 44063 EST. PATIENT, LEVEL IV Diagnosis: Cellulitis of chest wall[ICD10: L03.313] Diagnosis: Pain in right wrist[ICD10: M25.531] Diagnosis: Muscle weakness (generalized)[ICD10: M62.81] Diagnosis: Major depressive disorder, single episode, unspecified[ICD10: F32.9] Abril Sheridan MD, [facility] CPT-4: 82606 03/02/2016 01570 EST. PATIENT, LEVEL IV Diagnosis: Pain in right wrist[ICD10: M25.531] Diagnosis: Tinea corporis[ICD10: B35.4] Diagnosis: Major depressive disorder, single episode, unspecified[ICD10: F32.9] Diagnosis: Vitamin D deficiency, unspecified[ICD10: E55.9] Cydney Sheridan MD, [facility] CPT-4: 32844 02/23/2016 ([id number]) 51835 EST. PATIENT, LEVEL III Diagnosis: Tinea corporis[ICD10: B35.4] Diagnosis: Pain in right wrist[ICD10: M25.531] Ingrid Sheridan MD, [facility] CPT-4: 16405 01/09/2016 ([id number]) 68029 EST. PATIENT, LEVEL III Diagnosis: Tinea corporis[ICD10: B35.4] Diagnosis: Nausea[ICD10: R11.0] Ingrid Sheridan MD, [facility] CPT-4: 67646 12/09/2015 ([id number]) 15699 EST. PATIENT, LEVEL III Diagnosis: Tinea corporis[ICD10: B35.4] Diagnosis: Rash and other nonspecific skin eruption[ICD10: R21] Ingrid Sheridan MD, [facility] CPT-4: 27130 11/14/2015 ([id number]) 70095 EST. PATIENT, LEVEL IV Diagnosis: Tinea corporis[ICD10: B35.4] Diagnosis: Rash and other nonspecific skin eruption[ICD10: R21] Diagnosis: Major depressive disorder, single episode, unspecified[ICD10: F32.9] Diagnosis: Vitamin B12 deficiency anemia, unspecified[ICD10: D51.9] Diagnosis: Vitamin D deficiency, unspecified[ICD10: E55.9] Diagnosis: Mixed hyperlipidemia[ICD10: E78.2] Ingrid Sheridan MD, [facility] CPT-4: 56651 10/31/2015 ([id number]) 53974 EST. PATIENT, LEVEL III Diagnosis: Biceps tendonitis[ICD9: 726.12] Abril Sheridan MD, [facility] CPT- 4: 44339 12/12/2014 ([id number]) 83588 EST. 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 PATIENT, LEVEL IV Diagnosis: Sleep-disordered breathing[ICD9: 780.59] Diagnosis: Fatigue[ICD9: 780.79] Diagnosis: Diaphoresis[ICD9: 780.8] Diagnosis: Tinea corporis[ICD9: 110.5] Abril Sheridan MD, [facility] CPT- 4: 17673 07/03/2014 ([id number]) 91822 EST. PATIENT, LEVEL IV Diagnosis: HYPERLIPIDEMIA[ICD9: 272.4] Diagnosis: DEPRESSIVE DISORDER NEC[ICD9: 311] Diagnosis: Rash[ICD9: 782.1] Diagnosis: Sciatica[ICD9: 724.3] Abril Sheridan MD, [facility] CPT-4: 81958 12/04/2013 ([id number]) 94968 EST. PATIENT, LEVEL III Diagnosis: Tinea corporis[ICD9: 110.5] Ingrid Sheridan MD, [facility] CPT-4: 12758 11/13/2013 ([id number]) 44882 EST. PATIENT, LEVEL III Diagnosis: ESOPHAGEAL REFLUX[ICD9: 530.81] Diagnosis: Post menopausal syndrome[ICD9: V49.81] Abril Sheridan MD, [facility] CPT-4: 87857 07/16/2013 ([id number]) 18189 EST. PATIENT, LEVEL IV Diagnosis: ESOPHAGEAL REFLUX[ICD9: 530.81] Diagnosis: MALAISE AND FATIGUE[ICD9: 780.79] Diagnosis: Abdominal pain[ICD9: 789.00] Diagnosis: B12 DEFIC ANEMIA NEC[ICD9: 281.1] Abril Sheridan MD, [facility] CPT-4: 42723 07/02/2013 ([id number]) 95281 EST. PATIENT, LEVEL III Diagnosis: Acute back pain[ICD9: 724.5] Diagnosis: Chills[ICD9: 780.64] Diagnosis: Acute oral pain[ICD9: 528.9] Abril Sheridan MD, [facility] CPT- 4: 18874 06/18/2013 76143 EST. PATIENT, LEVEL IV Diagnosis: ESOPHAGEAL REFLUX[ICD9: 530.81] Diagnosis: VITAMIN D DEFICIENCY[ICD9: 268.9] Diagnosis: Vitamin B12 deficiency[ICD9: 266.2] Diagnosis: Vitamin B12 deficiency (dietary) anemia[ICD9: 281.1] Diagnosis: DEPRESSIVE DISORDER NEC[ICD9: 311] [facility] CPT-4: 45949 02/15/2013 ([id number] 35751 EST. PATIENT, LEVEL IV Diagnosis: Hyperlipidemia[ICD9: 272.4] Diagnosis: VITAMIN D DEFICIENCY[ICD9: 268.9] Diagnosis: Elevated blood sugar[ICD9: 790.29] Diagnosis: Elevated blood pressure[ICD9: 796.2] Diagnosis: MALAISE AND FATIGUE[ICD9: 780.79] Ingrid Sheridan MD, [facility] CPT-4: 95236 12/15/2012 ([id number] 51951 EST. 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 08/31/2017 Appointment: [phone] [phone] (15 min) Moderate 08/31/2017 Patient Education: Patient [...] patient. 06/21/2017 Appointment: [phone] [phone] (30 min) Complex 06/21/2017 Patient Education: Patient Medication Summary Completed 06/21/2017 Care Plan: Referral Order SNOMED-CT : [id number] Pending 06/19/2017 Visit Plan: Psoriasis - Defer [...] improved. 05/13/2017 Appointment: Ingrid Llanes WPtel: [phone] [phone] [place] (10 min) Simple 05/13/2017 Patient Education: Patient Medication Summary Completed 05/13/2017 Patient Education: Patient Medication Summary Completed 01/13/2017 Appointment: Abril Sheridan WPtel: [phone] [facility] [place] (15 min) Moderate 12/09/2016 Visit Plan: Psoriasis - symptoms have improved from previous appointment - she is wanting to start Otezla - Spoke with Dr. Woods office on the phone, they are OK with prescribing the medication - appointment date and time given to pt. Pt is to notify clinic with any questions or concerns. 11/30/2016 Appointment: Cydney Gilbert WPtel: [phone] [facility] (30 min) Complex 11/30/2016 Patient Education: [...] pruritus. 11/16/2016 Appointment: Cydney Gilbert WPtel: [phone] [facility] (30 min) Complex 11/16/2016 Patient Education: [...] Completed 06/10/2016 Appointment: Ingrid Llanes [facility] [phone] [facility] [phone] (15 min) Moderate 06/04/2016 Visit Plan: Inflammation of multiple joints including wrists, hands and muscles aches of legs-recheck inflammatory markers plus uric acid, elle, rf-kenlaog injection today in the office-start prednisone taper tomorrow Wyhmyvpwri-zhvigzmt-ji change in medication 04/13/2016 Patient Education: Patient [...] 02/26/2016 Care Plan: Referral Order SNOMED-CT : [id number] Pending 02/24/2016 Visit Plan: Right wrist pain [...] patient. 02/23/2016 Appointment: Cydney Gilbert WPtel: [phone] [facility] (15 min) Moderate 02/23/2016 Patient Education: Patient Medication Summary Completed 02/23/2016 Patient Education: Obesity Completed 02/23/2016 Appointment: Ingrid Llanes WPtel: [phone] [phone] [place] (15 min) Moderate 01/29/2016 Visit [...] instructed on use-follow up in 2 weeks Iygobkjvyw-gwgwdksjm-dcn vitamin B12 and folic acid-check labs Hyerlipidemia- check labs 10/31/2015 Appointment: Ingrid Llanesl: [address] [place], [place] [phone] (15 min) Moderate 10/31/2015 Patient Education: Patient Medication Summary Completed 10/31/2015 Visit Plan: Biceps tendinitis - pt to do exercises as directed, ant-inflammatories directed to be taken per RX instructions and pt to call if symptoms are not improved. 12/12/2014 Appointment: Abril Sheridan WPtel: [address] [place], [place] [phone] Follow up 12/12/2014 Patient Education: Patient Medication Summary Completed 12/12/2014 Appointment: Abril Sheridan WPtel: [address] [place], [place] [phone] [place] [address] follow up 12/11/2014 Visit Plan: Hyperlipidemia - [...] for diflucan. 11/11/2014 Appointment: Abril Sheridan WPtel: [address] [place], [place] [phone] Follow up 11/11/2014 Patient Education: Patient Medication Summary Completed 11/11/2014 Care Plan: COMPLETE CBC AUTOMATED LOINC : 61904-7 Ordered 11/11/2014 Appointment: Abril Sheridan WPtel: [address] [place], [place] [phone] Follow up 11/04/2014 Visit Plan: Sleep disordered breathing - recommended appt for sleep apnea evaluation - appt with gallo on 07/16/14 @240pm Tinea - RX sent electronically to the pt's pharmacy. 07/03/2014 Appointment: Abril Sheridan WPtel: [address] [place], [place] [phone] Follow up 07/03/2014 Patient Education: Patient Medication [...] check labs. 12/04/2013 Appointment: Abril Sheridan WPtel: [address] [place], [place] [phone] Other 12/04/2013 Patient Education: Patient Medication Summary Completed 12/04/2013 Visit Plan: Tinea-discussed natural and expected course of this diagnosis and to alert me if symptoms do not follow expected course, or if any worse, RX sent to patient's pharmacy and instructed on use. Patient verbalized understanding of plan. 11/13/2013 Appointment: Ingrid Llanes WPtel: [address] [place], [place] [phone] [place] Other 11/13/2013 Patient Education: Patient Medication Summary Completed 11/13/2013 Appointment: Abril Sheridan WPtel: [address] [place], [place] [phone] [place] Follow up 10/16/2013 Visit Plan: Esophageal [...] not improving. 07/16/2013 Appointment: Abril Sheridan WPtel: [address] [place], [place] [phone] Follow up 07/16/2013 Patient Education: Patient Medication [...] not improve. 07/02/2013 Appointment: Abril Sheridan WPtel: [address] [place] [address] Other 07/02/2013 Patient Education: Patient Medication Summary [...] not improving. 06/18/2013 Appointment: Abril Sheridan WPtel: [phone] Other 06/18/2013 Patient Education: Patient Medication Summary Completed 06/18/2013 Appointment: Abril Sheridan WPtel: [phone] [phone] Follow up 03/01/2013 Visit Plan: Esophageal Reflux [...] daily. 02/15/2013 App[facility]ment[phone] Follow up 02/15/2013 Patient Education: Patient Medication [...] as well. 12/15/2012 Appointment: Ingrid Llanes WPtel[phone] Follow up 12/15/2012 Patient Education: Patient Medication [...] current medications. 11/30/2012 Appointment: Abril Sheridan WPtel: [facility] New Patient 11/30/2012 Patient Education: Patient Medication Summary Completed 11/30/2012 Appointment: Abril Sheridan WPtel: [address] [place], [place] [phone] New Patient 10/24/2012 [facility] Referral: Raghav Perales Referral Initiated Instructions Comment PREDNISONE 10MG 6-5-4-3-2-1 START TOMORROW!! OK TO TAKE HYDROCODONE NEEDED HOLD IBUPROFEN UNTIL YOU ARE FINISHED WITH THE PREDNISONE . Inflammation of multiple joints including wrists, hands and muscles aches of legs-recheck inflammatory markers plus uric acid, elle, rf-kenlaog injection today in the office-start prednisone taper tomorrow Hzebaibgqq-lmnhkrnf-xa change in medication . 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 Vitamin D 5000 units daily [employer] [facility] home - get two old [...]
--- OUTSIDE RECORDS SUMMARY | 2018-06-16 07:41 | XMS REPORT ---
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 Name Role Phone RICHARD HARRIS Unavailable PROBLEMS Unknown Problems ALLERGIES Substance Reaction Event Type Date Status Penicillin G Potassium Unknown Drug Allergy Apr, Active Codeine Phosphate Unknown Drug Allergy Apr, Active ENCOUNTERS Encounter Location Date Diagnosis [facility] [id number] [place] [phone] May, [facility] [id number] [place] [address] [phone] Apr, Dental caries K02.9 [facility] [id number] [place] [address] [phone] Mar, Dental examination Z01.20 [facility] [id number] [place] [address] [phone] Nov, Dental caries K02.9 [facility] [id number] [place] [address] [phone] Nov, Dental examination Z01.20 [facility] [id number] [place] [phone] Aug, Visit for TB skin test Z11.1 and Screening for tuberculosis Z11.1 IMMUNIZATIONS No Known Immunizations SOCIAL HISTORY Never Assessed REASON FOR VISIT te #22 PLAN OF CARE Activity Details Follow Up prn Reason:hygiene VITAL SIGNS Blood pressure systolic 118 mmHg 2018-04-19 Blood pressure diastolic 84 mmHg 2018-04-19 MEDICATIONS Medication Instructions Dosage Frequency Start Date End Date Duration Status Multi Vitamin Active Clindamycin Phosphate Not-Taking Tramadol HCl Not-Taking Hydrocodone-Ibuprofen Not-Taking Cymbalta Active nexium Active Vitamin D Active Fish Oil Active RESULTS No Results PROCEDURES Procedure Date Ordered Result Body Site EXTRAC ERUPTED TOOTH/EXPOSED ROOT April 19, 2018 INSTRUCTIONS MEDICATIONS ADMINISTERED No Known Medications MEDICAL (GENERAL) HISTORY Type Description Date Medical History Angina Medical History 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
--- OUTSIDE RECORDS SUMMARY | 2018-06-16 07:41 | XMS REPORT ---
Author Author RICHARD HARRIS [facility] Address Unknown Care Team Providers Care Whitesmith Name Role Phone STEVEN RICHARD Unavailable PROBLEMS Unknown Problems ALLERGIES Substance Reaction Event Type Date Status Penicillin G Potassium Unknown Drug Allergy Mar, Active Codeine Phosphate Unknown Drug Allergy Mar, Active ENCOUNTERS Encounter Location Date Diagnosis [facility] [id number] [place] [phone] May, [facility] [id number] [place] [phone] Apr, Dental caries K02.9 [facility] [id number] [place] [address] [phone] Mar, Dental examination Z01.20 [facility] [id number] [place] [address] [phone] Nov, Dental caries K02.9 [facility] [id number] [place] [address] [phone] Nov, Dental examination Z01.20 [facility] [id number] [place] [phone] Aug, Visit for TB skin test Z11.1 and Screening for tuberculosis Z11.1 IMMUNIZATIONS No Known Immunizations SOCIAL HISTORY Never Assessed REASON FOR VISIT dennise/broken tooth PLAN OF CARE Activity Details Follow Up prn Reason:TE #22- 45 mins VITAL SIGNS Blood pressure systolic 130 mmHg 2018-03-31 Blood pressure diastolic 66 mmHg 2018-03-31 MEDICATIONS Medication Instructions Dosage Frequency Start Date End Date Duration Status Cymbalta Active Hydrocodone-Ibuprofen Active nexium Active Multi Vitamin Active Tramadol HCl Active Clindamycin Phosphate Active RESULTS No Results PROCEDURES Procedure Date Ordered Result Body Site LTD ORAL EVALUATION - PROBLEM FOCUS March 31, 2018 INTRAORL-PERIAPICAL 1 FILM [id number] March 31, 2018 INSTRUCTIONS MEDICATIONS ADMINISTERED No Known Medications MEDICAL (GENERAL) HISTORY Type Description Date Medical History Angina Medical History 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
--- OUTSIDE RECORDS SUMMARY | 2018-06-16 07:41 | XMS REPORT ---
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 Name Role Phone RICHARD HARRIS Unavailable PROBLEMS Unknown Problems ALLERGIES Substance Reaction Event Type Date Status Penicillin G Potassium Unknown Drug Allergy Nov, Active Codeine Phosphate Unknown Drug Allergy Nov, Active ENCOUNTERS Encounter Location Date Diagnosis [facility] [id number] [place] [phone] Apr, [facility] [id number] [place] [address] [phone] Mar, Dental examination Z01.20 [facility] [id number] [place] [phone] Nov, Dental caries K02.9 [facility] [id number] [place] [phone] Nov, Dental examination Z01.20 [facility] [id number] [phone] Aug, Visit for TB skin test Z11.1 and Screening for tuberculosis Z11.1 IMMUNIZATIONS No Known Immunizations SOCIAL HISTORY Never Assessed REASON FOR VISIT TE PLAN OF CARE Activity Details Follow Up prn Reason:FLAKO VITAL SIGNS Blood pressure systolic 128 mmHg 2017-11-23 Blood pressure diastolic 67 mmHg 2017-11-23 MEDICATIONS Medication Instructions Dosage Frequency Start Date End Date Duration Status Cymbalta Active Clindamycin Phosphate Active Hydrocodone-Ibuprofen Active nexium Active Multi Vitamin Active Tramadol HCl Active RESULTS No Results PROCEDURES Procedure Date Ordered Result Body Site EXTRAC ERUPTED TOOTH/EXPOSED ROOT Nov 23, 2017 INSTRUCTIONS MEDICATIONS ADMINISTERED No Known Medications MEDICAL (GENERAL) HISTORY Type Description Date Medical History Angina Medical History hip replacement 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
--- OUTSIDE RECORDS SUMMARY | 2018-06-16 07:41 | XMS REPORT | Continuity of Care Document ---
Author Author [facility] Organization [facility] Address Unknown Phone Unavailable Care Team Providers Care Mortgage Processing Manager Name Role Phone STAFF, NON PCP Unavailable Insurance Providers Guarantor Olimpia Parish Address [address] [place] [address] Payer Medicare [place]ps Policy Number [id number] Subscriber's Name Olimpia Parish Relationship 18 Self / Same As Patient Payer [email or web address] Policy Number [id number] Subscriber's Name Olimpia Parish Relationship 18 Self / Same As Patient Advance Directives Directive Response Recorded Date/Time Advance Directives No 11/21/17 6:40am Chief Complaint and Reason for Visit Chief Complaint Dental Problem Reason for Visit Dental caries Problems Active ProblemsNo active problem information available. Past Problems Medical Problem Onset Date Status Dental caries Unknown Acute Medications Current Home Medications Medication Dose Units Route Directions Days Qty Instructions Start Date Acetaminophen/Hydrocodone Bitart ([place]) 5 Mg/325 Mg Tablet 1-2 Tablet Oral Every 4-6 Hours As Needed as needed for For Pain 15 Tablet 11/21/17 Cholecalciferol (Vitamin D3) (Vitamin D) 5,000 Unit Capsule 5,000 Mg Oral Daily Clindamycin Hcl 300 Mg Capsule 300 Mg Oral Every 8 Hours 21 Capsule TAKE WITH A FULL GLASS OF WATER. 11/21/17 Duloxetine Hcl (Cymbalta) 60 Mg Capsule. 60 Mg Oral Daily 30 Capsule Esomeprazole Magnesium (Nexium) 40 Mg Capsule.dr 40 Mg Oral Daily 30 Capsule Past Home Medications Medication Directions Ordered Status Apremilast (Otezla) 30 Mg Tablet, 30 Mg Oral Twice A Day Discontinued Social History Social History Problem Response Recorded Date/Time Onset Date Status Marital Status 11/21/2017 6:46am Not Applicable Not Applicable Smoking Status Start Date Stop Date Never smoker Hospital Discharge Instructions No hospital discharge instruction information available. Plan of Care Discharge Date 11/21/17 7:52am Disposition 01 HOME/SELF CARE Condition at Discharge Good Instructions/Education Provided ED Cavity Dental Prescriptions See Medication Section Referrals Your Dentist Order Date: 2-3 days STAFF,NON Note: Functional Status No functional status information available. Allergies, Adverse Reactions, Alerts Allergen Type Severity Reaction Status Last Updated Penicillin Allergy Unknown Hives Active 11/21/17 Codeine Allergy Unknown Hives Active 11/21/17 Immunizations No immunization information available. Vital Signs Acute Vital Signs Vital Response Date/Time Height (Feet) 5 feet 11/21/2017 6:43am Height (Inches) 6.00 inches 11/21/2017 6:43am Height (Calculated Centimeters) 167.914634 cm 11/21/2017 6:43am Weight (Pounds) 173.0 11/21/2017 6:43am Weight (Calculated Kilograms) 78.754757 kg 11/21/2017 6:43am Weight (Calculated Grams) 53259.481 gm 11/21/2017 6:43am Body Mass Index (BMI) 27 11/21/2017 6:43am Body Mass Index (BMI) Classification Overweight 11/21/2017 6:43am Temperature (Fahrenheit) 98.2 degrees F (96.8 - 100.4) 11/21/2017 6:43am Blood Pressure Systolic 139 mm Hg (100 - 140) 11/21/2017 6:43am Blood Pressure Diastolic 95 mm Hg (60 - 100) 11/21/2017 6:43am Pulse Rate (adult) 86 beats per minute (60 - 100) 11/21/2017 6:43am Respirations 20 breaths per minute (12 - 20) 11/21/2017 6:43am O2 Sat by Pulse Oximetry 99 % (90 - 100) 11/21/2017 6:43am Results No relevant diagnostic test, laboratory data and/or discharge summary information available. Procedures No procedure information available. Encounters Encounter Location Arrival/Admit Date Discharge/Depart Date Attending Provider Departed Emergency Room [facility] 11/21/17 6:33am 11/21/17 7:52am HUMBLE BARROS DO Recent Diagnosis
--- OUTSIDE RECORDS SUMMARY | 2018-06-16 07:42 | XMS REPORT | Continuity of Care Document ---
Author Author [facility] Organization [facility] Address Unknown Phone Unavailable Allergies Active Description Code Type Severity Reaction Onset Reported/Identified Relationship to Patient Clinical Status Yes codeine [id number] Drug Allergy Unknown Hives 11/21/2017 Yes Penicillins [id number] Drug Allergy Unknown Hives 11/21/2017 Yes codeine [id number] Drug Allergy Unknown RASH, ITCHING 05/25/2018 Yes Penicillins [id number] Drug Allergy Mild RASH, ITCHING 05/25/2018 Medications There is no data. Problems Date Dx Coded Attending Type Code [...] ALI FACP CCDS Ot 780.79 11/15/2014 KARIN BELLC, ALI FACP CCDS Ot 786.09 11/15/2014 KARIN [...] 11/25/2014 Ot V82.81 11/25/2014 KARIN MUSTAFA FACC, YULIET FACP CCDS Ot 530.81 11/25/2014 KARIN MUSTAFA FACC, ALI FACP CCDS Ot 627.2 11/25/2014 KARIN BELLC, ALI FACP CCDS Ot 780.79 11/25/2014 KARIN BELLC, ALI FACP CCDS Ot 786.09 11/25/2014 KARIN BELLC, ALI FACP CCDS Ot 786.50 11/25/2014 KARIN BELLC, ALI FACP CCDS Ot 530.81 11/25/2014 KARIN [...] 786.50 CHEST PAIN NOS 12/06/2014 Ot V58.69 OTH MED,LT, CURRENT USE 11/06/2015 Ot 173.0 11/06/2015 Ot 173.3 11/06/2015 Ot 780.79 11/06/2015 Ot V72.63 11/06/2015 Ot V72.81 11/06/2015 Ot V74.8 11/06/2015 Ot 530.81 11/06/2015 Ot 553.3 11/06/2015 Ot 723.1 11/06/2015 Ot 787.20 11/06/2015 Ot 433.10 11/06/2015 Ot 268.9 11/06/2015 Ot 733.90 11/06/2015 Ot V82.81 11/06/2015 KARIN MUSTAFA FACC, ALI FACP CCDS Ot 530.81 11/06/2015 KARIN MUSTAFA FACC, ALI FACP CCDS Ot 627.2 11/06/2015 KARIN MUSTAFA FACC, ALI FACP CCDS Ot 780.79 11/06/2015 KARIN BELLC, ALI FACP CCDS Ot 786.09 11/06/2015 KARIN BELLC, ALI FACP CCDS Ot 786.50 11/06/2015 KARIN BELLC, ALI FACP CCDS Ot 530.81 11/06/2015 KARIN BELLC, ALI FACP CCDS Ot 627.2 11/06/2015 KARIN BELLC, ALI FACP CCDS Ot 780.79 11/06/2015 KARIN BELLC, ALI FACP CCDS Ot 786.09 11/06/2015 KARIN BELLC, ALI FACP CCDS Ot 786.50 11/06/2015 GUSTAVO MUSTAFA, JUAN Monterroso Ot 785.9 11/06/2015 Ot 173.0 11/06/2015 Ot 173.3 11/06/2015 Ot 780.79 11/06/2015 Ot V72.63 11/06/2015 Ot V72.81 11/06/2015 Ot V74.8 11/06/2015 Ot 530.81 11/06/2015 Ot 553.3 11/06/2015 Ot 723.1 11/06/2015 Ot 787.20 11/06/2015 Ot 433.10 11/06/2015 Ot 268.9 11/06/2015 Ot 733.90 11/06/2015 Ot V82.81 11/06/2015 KARIN MUSTAFA FACC, ALI FACP CCDS Ot 530.81 11/06/2015 KARIN MUSTAFA FACC, ALI FACP CCDS Ot 627.2 11/06/2015 KARIN MUSTAFA FACC, ALI FACP CCDS Ot 780.79 11/06/2015 KARIN MUSTAFA FACC, ALI FACP CCDS Ot 786.09 11/06/2015 KARIN MUSTAFA FACC, ALI FACP CCDS Ot 786.50 11/06/2015 KARIN MUSTAFA FACC, ALI FACP CCDS Ot 530.81 11/06/2015 KARIN MUSTAFA FACC, ALI FACP CCDS Ot 627.2 11/06/2015 KARIN MUSTAFA FACC, ALI FACP CCDS Ot 780.79 11/06/2015 KARIN MUSTAFA FACC, ALI FACP CCDS Ot 786.09 11/06/2015 KARIN MUSTAFA FACC, ALI FACP CCDS Ot 786.50 11/06/2015 JUAN CHEN MD Ot 785.9 11/11/2015 JUAN CHEN MD Ot 785.9 11/27/2015 BLADIMIR ARCEP Ot I65.23 11/30/2015 BRITT MUSTAFA, SATINDER Parra Ot M79.1 MYALGIA 11/30/2015 BRITT MUSTAFA, SATINDER Parra Ot N28.1 CYST OF KIDNEY, ACQUIRED 11/30/2015 BRITT MUSTAFA, SATINDER Parra Ot R10.11 RIGHT UPPER QUADRANT PAIN 11/30/2015 BRITT MUSTAFA, SATINDER Parra Ot R11.2 NAUSEA WITH VOMITING, UNSPECIFIED 11/30/2015 BRITT MUSTAFA, SATINDER T Ot R19.7 DIARRHEA, UNSPECIFIED 11/30/2015 BRITT MUSTAFA, SATINDER T Ot Z98.1 ARTHRODESIS STATUS 12/12/2015 BLADIMIR ARCE ASSAULT AMPHIBIOUS VEHICLE CREWMAN Ot I65.23 01/12/2016 BLADIMIR ARCE ASSAULT AMPHIBIOUS VEHICLE CREWMAN Ot M19.031 01/15/2016 BLADIMIR ARCE ASSAULT AMPHIBIOUS VEHICLE CREWMAN Ot M19.031 01/16/2016 BRITT MUSTAFA, SATINDER T Ot M79.1 MYALGIA 01/16/2016 BRITT MUSTAFA, SATINDER T Ot N28.1 CYST OF KIDNEY, ACQUIRED 01/16/2016 BRITT MUSTAFA, SATINDER T Ot R10.11 RIGHT UPPER QUADRANT PAIN 01/16/2016 BRITT MUSTAFA, SATINDER T Ot R11.2 NAUSEA WITH VOMITING, UNSPECIFIED 01/16/2016 SATINDER DE LA TORRE MD T Ot R19.7 DIARRHEA, UNSPECIFIED 01/16/2016 BRITT MUSTAFA, SATINDER T Ot Z98.1 ARTHRODESIS STATUS 01/29/2016 BLADIMIR ARCE ASSAULT AMPHIBIOUS VEHICLE CREWMAN Ot M19.031 PRIMARY OSTEOARTHRITIS, RIGHT WRIST 01/30/2016 BRITT MUSTAFA, SATINDER T Ot M79.1 MYALGIA 01/30/2016 BRITT MUSTAFA, SATINDER T Ot N28.1 CYST OF KIDNEY, ACQUIRED 01/30/2016 BRITT MUSTAFA, SATINDER T Ot R10.11 RIGHT UPPER QUADRANT PAIN 01/30/2016 BRITT MUSTAFA, SATINDER T Ot R11.2 NAUSEA WITH VOMITING, UNSPECIFIED 01/30/2016 SATINDER DE LA TORRE MD T Ot R19.7 DIARRHEA, UNSPECIFIED 01/30/2016 BRITT MUSTAFA, SATINDER T Ot Z98.1 ARTHRODESIS STATUS 02/19/2016 BLADIMIR ARCE ASSAULT AMPHIBIOUS VEHICLE CREWMAN Ot M19.031 PRIMARY OSTEOARTHRITIS, RIGHT WRIST 02/20/2016 THALIA HU UPHOLSTERY TECHNICIAN Ot M25.521 PAIN IN RIGHT ELBOW 02/20/2016 THALIA HU UPHOLSTERY TECHNICIAN Ot M79.631 PAIN IN RIGHT FOREARM 03/19/2016 MIGUEL DO, LISA W Ot M25.531 PAIN IN RIGHT WRIST 03/19/2016 MIGUEL DOLISA W Ot M25.531 PAIN IN RIGHT WRIST 04/09/2016 MIGUEL DOLISA W Ot M24.831 OTH SPECIFIC JOINT DERANGEMENTS OF RIGHT 04/09/2016 LISA RIVERA DO W Ot M25.531 PAIN IN RIGHT WRIST 04/09/2016 MIGUELLISA Monterroso DO W Ot M65.841 OTHER SYNOVITIS AND TENOSYNOVITIS, RIGHT 04/21/2016 MIGUEL DOLISA Ot M24.831 OTH SPECIFIC JOINT DERANGEMENTS OF RIGHT 04/21/2016 MIGUEL DOLISA Ot M25.531 PAIN IN RIGHT WRIST 04/21/2016 [...] 785.9 CARDIOVAS SYS SYMP NEC 05/13/2017 BLADIMIR ARCEP Ot I65.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 AND STENOSIS OF BILATERAL BUCK 05/13/2017 BLADIMIR ARCE ASSAULT AMPHIBIOUS VEHICLE CREWMAN Ot M19.031 PRIMARY OSTEOARTHRITIS, RIGHT WRIST 05/13/2017 THALIA HU UPHOLSTERY TECHNICIAN Ot M25.521 PAIN IN RIGHT ELBOW 05/13/2017 THALIA HU Nicholas UPHOLSTERY TECHNICIAN Ot M79.631 PAIN IN RIGHT FOREARM 05/13/2017 MIGUEL DOLISA W Ot M24.831 OTH SPECIFIC JOINT DERANGEMENTS OF RIGHT 05/13/2017 MIGUEL DO LISA W Ot M25.531 PAIN IN RIGHT WRIST 05/13/2017 MIGUEL DOLISA W Ot M65.841 OTHER SYNOVITIS AND TENOSYNOVITIS, RIGHT 05/16/2017 BLADIMIR ARCE ASSAULT AMPHIBIOUS VEHICLE CREWMAN Ot K44.9 DIAPHRAGMATIC HERNIA WITHOUT OBSTRUCTION 05/16/2017 BLADIMIR ARCE ASSAULT AMPHIBIOUS VEHICLE CREWMAN Ot K52.9 NONINFECTIVE GASTROENTERITIS AND COLITIS 05/16/2017 BALDIMIR ARCE ASSAULT AMPHIBIOUS VEHICLE CREWMAN Ot K76.0 FATTY (CHANGE OF) LIVER, NOT ELSEWHERE C 05/16/2017 BLADIMIR ARCE ASSAULT AMPHIBIOUS VEHICLE CREWMAN Ot N28.1 CYST OF KIDNEY, ACQUIRED 05/16/2017 BLADIMIR ARCE ASSAULT AMPHIBIOUS VEHICLE CREWMAN Ot Z90.49 ACQUIRED ABSENCE OF OTHER SPECIFIED PART 05/16/2017 BLADIMIR ARCE ASSAULT AMPHIBIOUS VEHICLE CREWMAN Ot Z96.641 PRESENCE OF RIGHT ARTIFICIAL HIP JOINT 06/07/2017 BLADIMIR ARCE ASSAULT AMPHIBIOUS VEHICLE CREWMAN Ot K44.9 DIAPHRAGMATIC HERNIA WITHOUT OBSTRUCTION 06/07/2017 BLADIMIR ARCE ASSAULT AMPHIBIOUS VEHICLE CREWMAN Ot K52.9 NONINFECTIVE GASTROENTERITIS AND COLITIS 06/07/2017 BLADIMIR ARCE ASSAULT AMPHIBIOUS VEHICLE CREWMAN Ot K76.0 FATTY (CHANGE OF) LIVER, NOT ELSEWHERE C 06/07/2017 BLADIMIR ARCE ASSAULT AMPHIBIOUS VEHICLE CREWMAN Ot N28.1 CYST OF KIDNEY, ACQUIRED 06/07/2017 BLADIMIR ARCE ASSAULT AMPHIBIOUS VEHICLE CREWMAN Ot Z90.49 ACQUIRED ABSENCE OF OTHER SPECIFIED PART 06/07/2017 BLADIMIR ARCE ASSAULT AMPHIBIOUS VEHICLE CREWMAN Ot Z96.641 PRESENCE OF RIGHT ARTIFICIAL HIP JOINT 07/08/2017 BLADIMIR ARCE ASSAULT AMPHIBIOUS VEHICLE CREWMAN Ot K44.9 DIAPHRAGMATIC HERNIA WITHOUT OBSTRUCTION 07/08/2017 BLADIMIR ARCE ASSAULT AMPHIBIOUS VEHICLE CREWMAN Ot K52.9 NONINFECTIVE GASTROENTERITIS AND COLITIS 07/08/2017 BLADIMIR ARCE ASSAULT AMPHIBIOUS VEHICLE CREWMAN Ot K76.0 FATTY (CHANGE OF) LIVER, NOT ELSEWHERE C 07/08/2017 BLADIMIR ARCE ASSAULT AMPHIBIOUS VEHICLE CREWMAN Ot N28.1 CYST OF KIDNEY, ACQUIRED 07/08/2017 BLADIMIR ARCE ASSAULT AMPHIBIOUS VEHICLE CREWMAN Ot Z90.49 ACQUIRED ABSENCE OF OTHER SPECIFIED PART 07/08/2017 BLADIMIR ARCE ASSAULT AMPHIBIOUS VEHICLE CREWMAN Ot Z96.641 PRESENCE OF RIGHT ARTIFICIAL HIP JOINT 07/11/2017 TREVOR BEACH MD Ot K21.9 GASTRO-ESOPHAGEAL REFLUX DISEASE WITHOUT 07/11/2017 TRVEOR BEACH MD Ot Z01.818 ENCOUNTER FOR OTHER PREPROCEDURAL EXAMIN 07/11/2017 TREVOR BEACH MD Ot Z12.11 ENCOUNTER FOR SCREENING FOR MALIGNANT NE 07/11/2017 TREVOR BEACH MD Ot K21.9 GASTRO-ESOPHAGEAL REFLUX DISEASE WITHOUT 07/11/2017 TREVOR BEACH MD Ot Z01.818 ENCOUNTER FOR OTHER PREPROCEDURAL EXAMIN 07/11/2017 TREVOR BEACH MD Ot Z12.11 ENCOUNTER FOR SCREENING FOR MALIGNANT NE 07/21/2017 TREVOR BEACH MD Ot K21.9 GASTRO-ESOPHAGEAL REFLUX DISEASE WITHOUT 07/21/2017 TREVOR BEACH MD Ot Z01.818 ENCOUNTER FOR OTHER PREPROCEDURAL EXAMIN 07/21/2017 TREVOR BEACH MD Ot Z12.11 ENCOUNTER FOR SCREENING FOR MALIGNANT NE 07/21/2017 TREVOR BEACH MD Ot K21.9 GASTRO-ESOPHAGEAL REFLUX DISEASE WITHOUT 07/21/2017 TREVOR BEACH MD Ot Z01.818 ENCOUNTER FOR OTHER PREPROCEDURAL EXAMIN 07/21/2017 TREVOR BEACH MD Ot Z12.11 ENCOUNTER FOR SCREENING FOR MALIGNANT NE 07/25/2017 TREVOR BEACH MD Ot E78.00 PURE HYPERCHOLESTEROLEMIA, UNSPECIFIED 07/25/2017 TREVOR BEACH MD Ot F32.9 MAJOR DEPRESSIVE DISORDER, SINGLE EPISOD 07/25/2017 TREVOR BEACH MD Ot F41.9 ANXIETY DISORDER, UNSPECIFIED 07/25/2017 TREVOR BEACH MD Ot K25.9 GASTRIC ULCER, UNSP ACUTE OR CHRONIC, 07/25/2017 KENDRICK BEACH MDVIER M Ot K29.70 GASTRITIS, UNSPECIFIED, WITHOUT BLEEDING 07/25/2017 TREVOR BEACH MD Ot K44.9 DIAPHRAGMATIC HERNIA WITHOUT OBSTRUCTION 07/25/2017 TREVOR BEACH MD Ot K63.5 POLYP OF COLON 07/25/2017 TREVOR BEACH MD Ot Z86.010 PERSONAL HISTORY OF COLONIC POLYPS 07/25/2017 TREVOR BEACH MD Ot Z87.891 PERSONAL HISTORY OF NICOTINE DEPENDENCE 11/21/2017 ROVENSTINE DO, HUMBLE L Other K02.9 DENTAL CARIES, UNSPECIFIED 11/21/2017 ROVENSTINE DO, HUMBLE L Other K08.89 OTHER SPECIFIED DISORDERS OF TEETH AND SUPPORTING STRUCTURES 04/13/2018 Ot 268.9 VITAMIN D DEFICIENCY NOS 04/13/2018 Ot 733.90 BONE CARTILAGE DIS NOS 04/13/2018 Ot V82.81 SCREENING FOR OSTEOPOROSIS 04/13/2018 KARIN MUSTAFA FACC, ALI FACP CCDS Ot 530.81 ESOPHAGEAL REFLUX 04/13/2018 KARIN MUSTAFA FACC, ALI FACP CCDS Ot 627.2 SYMPT MENOPAUSE OR FEMALE CLIMACTERIC ST 04/13/2018 KARIN MUSTAFA FACC, ALI FACP CCDS Ot 780.79 OTH MALAISE FATIGUE 04/13/2018 KARIN MUSTAFA FACC, ALI FACP CCDS Ot 786.09 RESPIRATORY ABNORM NEC 04/13/2018 KARIN MUSTAFA FACC, ALI FACP CCDS Ot 786.50 CHEST PAIN NOS 04/13/2018 KARIN MUSTAFA FACC, ALI FACP CCDS Ot 530.81 ESOPHAGEAL REFLUX 04/13/2018 KARIN MUSTAFA FACC, ALI FACP CCDS Ot 627.2 SYMPT MENOPAUSE OR FEMALE CLIMACTERIC ST 04/13/2018 KARIN MUSTAFA FACC, ALI FACP CCDS Ot 780.79 OTH MALAISE FATIGUE 04/13/2018 KARIN MUSTAFA FACC, ALI FACP CCDS Ot 786.09 RESPIRATORY ABNORM NEC 04/13/2018 KARIN MUSTAFA FACC, ALI FACP CCDS Ot 786.50 CHEST PAIN NOS 04/13/2018 GUSTAVO MUSTAFA, JUAN Monterroso Ot 785.9 CARDIOVAS SYS SYMP NEC 04/13/2018 BLADIMIR ARCE ASSAULT AMPHIBIOUS VEHICLE CREWMAN Ot I65.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 AND STENOSIS OF BILATERAL BUCK 04/13/2018 BLADIMIR ARCE ASSAULT AMPHIBIOUS VEHICLE CREWMAN Ot M19.031 PRIMARY OSTEOARTHRITIS, RIGHT WRIST 04/13/2018 THALIA HU UPHOLSTERY TECHNICIAN Ot M25.521 PAIN IN RIGHT ELBOW 04/13/2018 THALIA HU UPHOLSTERY TECHNICIAN Ot M79.631 PAIN IN RIGHT FOREARM 04/13/2018 MIGUEL CASTROLISA Ot M24.831 OTH SPECIFIC JOINT DERANGEMENTS OF RIGHT 04/13/2018 MIGUELLoc CASTRO LISA Alexander Ot M25.531 PAIN IN RIGHT WRIST 04/13/2018 MIGUEL DOLISA Ot M65.841 OTHER SYNOVITIS AND TENOSYNOVITIS, RIGHT 04/13/2018 BLADIMIR ARCE ASSAULT AMPHIBIOUS VEHICLE CREWMAN Ot K44.9 DIAPHRAGMATIC HERNIA WITHOUT OBSTRUCTION 04/13/2018 BLADIMIR ARCE ASSAULT AMPHIBIOUS VEHICLE CREWMAN Ot K52.9 NONINFECTIVE GASTROENTERITIS AND COLITIS 04/13/2018 BLADIMIR ARCE ASSAULT AMPHIBIOUS VEHICLE CREWMAN Ot K76.0 FATTY (CHANGE OF) LIVER, NOT ELSEWHERE C 04/13/2018 BLADIMIR ARCE ASSAULT AMPHIBIOUS VEHICLE CREWMAN Ot N28.1 CYST OF KIDNEY, ACQUIRED 04/13/2018 BLADIMIR ARCE ASSAULT AMPHIBIOUS VEHICLE CREWMAN Ot Z90.49 ACQUIRED ABSENCE OF OTHER SPECIFIED PART 04/13/2018 BLADIMIR ARCE ASSAULT AMPHIBIOUS VEHICLE CREWMAN Ot Z96.641 PRESENCE OF RIGHT ARTIFICIAL HIP JOINT 04/13/2018 TREVOR BEACH MD Ot K21.9 GASTRO-ESOPHAGEAL REFLUX DISEASE WITHOUT 04/13/2018 TREVOR BEACH MD Ot Z01.818 ENCOUNTER FOR OTHER PREPROCEDURAL EXAMIN 04/13/2018 TREVOR BEACH MD Ot Z12.11 ENCOUNTER FOR SCREENING FOR MALIGNANT NE 04/13/2018 TORRES GREENE APRN Ot I65.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 AND STENOSIS OF BILATERAL BUCK 04/17/2018 TORRES GREENE APRN Ot R09.89 OTH SYMPTOMS AND SIGNS INVOLVING THE CIR 05/25/2018 MIGUEL BARBOZA MD Ot Z01.818 ENCOUNTER FOR OTHER PREPROCEDURAL EXAMIN 05/29/2018 TORRES GREENE APRN Ot M25.551 PAIN IN RIGHT HIP 05/29/2018 TORRES GREENE APRN Ot M79.651 PAIN IN RIGHT THIGH 05/29/2018 TORRES GREENE APRN Ot R20.0 ANESTHESIA OF SKIN 05/29/2018 TORRES GREENE APRN Ot R53.1 WEAKNESS 05/29/2018 TORRES GREENE APRN Ot Z90.710 ACQUIRED ABSENCE OF BOTH CERVIX AND UTER 05/29/2018 TORRES GREENE APRN Ot Z96.641 PRESENCE OF RIGHT ARTIFICIAL HIP JOINT 05/30/2018 MIGUEL BARBOZA MD Ot H25.811 COMBINED FORMS OF AGE-RELATED CATARACT, 05/30/2018 MIGUEL BARBOZA MD Ot K21.9 GASTRO-ESOPHAGEAL REFLUX DISEASE WITHOUT 06/01/2018 MIGUEL BARBOZA MD Ot H25.811 COMBINED FORMS OF AGE-RELATED CATARACT, 06/01/2018 MIGUEL BARBOZA MD Ot K21.9 GASTRO-ESOPHAGEAL REFLUX DISEASE WITHOUT 06/02/2018 TORRES GREENE APRN Ot M25.551 PAIN IN RIGHT HIP 06/02/2018 TORRES GREENE APRN Ot M79.651 PAIN IN RIGHT THIGH 06/02/2018 TORRES GREENE APRN Ot R20.0 ANESTHESIA OF SKIN 06/02/2018 TORRES GREENE APRN Ot R53.1 WEAKNESS 06/02/2018 TORRES GREENE APRN Ot Z90.710 ACQUIRED ABSENCE OF BOTH CERVIX AND UTER 06/02/2018 TORRES GREENE APRN Ot Z96.641 PRESENCE OF RIGHT ARTIFICIAL HIP JOINT 06/15/2018 MIGUEL BARBOZA MD Ot Z01.818 ENCOUNTER FOR OTHER PREPROCEDURAL EXAMIN 06/15/2018 TORRES GREENE APRN Ot R09.89 OTH SYMPTOMS AND SIGNS INVOLVING THE CIR Procedures There is no data. Results Test Result Range Automated blood complete blood count (hemogram) panel - 05/13/17 14:12 Blood leukocytes automated count (number/volume) 9.7 10*3/uL 4.3-11.0 Blood erythrocytes automated count (number/volume) 5.46 10*6/uL 4.35-5.85 Venous blood hemoglobin measurement (mass/volume) 16.4 [...] Automated blood platelet mean volume measurement 10.0 [foz_us] 7.4-10.4 Comprehensive metabolic panel - 05/13/17 14:12 Serum or plasma sodium measurement (moles/volume) 142 mmol/L 135-145 Serum or plasma potassium measurement (moles/volume) 4.2 mmol/L 3.6-5.0 Serum or plasma chloride measurement (moles/volume) 106 mmol/L 98-107 Carbon dioxide 25 mmol/L 21-32 Serum or plasma anion gap determination (moles/volume) 11 mmol/L 5-14 Serum or plasma urea nitrogen measurement (mass/volume) 7 mg/dL 7-18 Serum or plasma creatinine measurement (mass/volume) 0.94 mg/dL 0.60-1.30 Serum or plasma urea nitrogen/creatinine mass ratio 7 NRG Serum or plasma creatinine measurement with calculation of estimated glomerular filtration rate 58 NRG Serum or plasma glucose measurement (mass/volume) 116 mg/dL 70-105 Serum or plasma calcium measurement (mass/volume) 10.2 mg/dL 8.5-10.1 Serum or plasma total bilirubin measurement [...] Status Pt. Type Provider Facility Loc./Unit Complaint [id number] 06/14/2018 05:57:00 06/14/2018 13:26:00 DIS Outpatient MIGUEL BARBOZA MD [facility] PREOP CATARACT LEFT EYE [id number] 05/30/2018 07:19:00 05/30/2018 08:54:00 DIS Outpatient MIGUEL BARBOZA MD [facility] SDC CATARACT RIGHT EYE [id number] 05/27/2018 10:06:00 05/27/2018 23:59:59 CLS Outpatient TORRES GREENE APRN [facility] RAD RT HIP PAIN [id number] 05/25/2018 06:22:00 05/25/2018 14:00:00 DIS Outpatient MIGUEL BARBOZA MD [facility] PREOP CATARACT RIGHT EYE [id number] 05/23/2018 14:37:00 05/23/2018 23:59:59 CLS Outpatient TORRES GREENE APRN [facility] RAD RIGHT HIP PAIN [id number] 04/14/2018 14:05:00 04/14/2018 23:59:59 CLS Outpatient TORRES GREENE APRN [facility] RAD BRUIT [id number] 07/25/2017 07:30:00 07/25/2017 11:20:00 DIS Outpatient TREVOR BEACH MD [facility] ENDO SCREENING/CHRONIC GERD [id number] 07/21/2017 05:37:00 07/21/2017 11:08:00 DIS Outpatient TREVOR BEACH MD [facility] PREOP COLONOSCOPY, EGD [id number] 07/08/2017 05:20:00 07/08/2017 23:59:59 CLS Outpatient TREVOR BEACH MD [facility] PREOP SCREENING/CHRONIC GERD [id number] 05/13/2017 13:57:00 05/13/2017 23:59:59 CLS Outpatient BLADIMIR ARCE [facility] RAD ABD PAIN [id number] 03/19/2016 17:02:00 03/19/2016 23:59:59 CLS Outpatient LISA RIVERA DO [facility] RAD RT WRIST PAIN [id number] 02/19/2016 09:38:00 02/19/2016 23:59:59 CLS Outpatient THALIA HU UPHOLSTERY TECHNICIAN [facility] RAD RT ELBOW AND FOREARM PAIN SEVERE [id number] 01/09/2016 14:34:00 01/09/2016 23:59:59 CLS Outpatient BLADIMIR ARCE [facility] RAD RT WRIST PAIN [id number] 11/30/2015 09:03:00 11/30/2015 13:12:00 DIS Emergency BRITT MUSTAFA, SATINDER Parra [facility] ER BODY ACHES,VOMITING, DIARRHEA [id number] 11/06/2015 12:33:00 11/06/2015 23:59:59 CLS Outpatient BLADIMIR ARCE [facility] RAD STENOSIS [id number] 11/18/2014 11:00:00 11/18/2014 23:59:59 CLS Outpatient GUSTAVO MUSTAFA, JUAN Monterroso [facility] RAD CAROTID BRUIT [id number] 07/30/2013 10:59:00 07/30/2013 23:59:59 CLS Outpatient KARIN MUSTAFA FACC, ALI FACP CCDS [facility] RAD CP,DYSPNEA, WEAKNESS [id number] 07/25/2013 07:44:00 07/25/2013 23:59:59 CLS Outpatient KARIN MUSTAFA FACC, ALI FACP CCDS [facility] CARD CP,DYSPNEA, WEAKNESS [id number] 06/16/2018 07:22:00 ACT Outpatient MIGUEL BARBOZA MD [facility] SDC CATARACT LEFT EYE [id number] 12/06/2014 06:47:00 Document Registration [id number] 01/05/2013 08:43:00 Document Registration [id number] 02/11/2012 10:40:00 Document Registration [id number] 10/22/2011 06:11:00 Document Registration [id number] 04/22/2011 08:29:00 Document Registration [id number] 04/06/2011 07:26:00 Document Registration [id number] 03/08/2011 06:38:00 Document Registration [id number] 02/14/2011 16:13:00 Document Registration [id number] 12/10/2010 05:38:00 Document Registration [id number] 12/03/2010 11:01:00 Document Registration [id number] 10/28/2010 12:35:00 Document Registration [id number] 10/17/2010 12:21:00 Document Registration [id number] 03/30/2010 09:50:00 Document Registration 0000 08/18/2017 09:45:23 08/18/2017 23:59:59 CLS Outpatient [id number] 11/21/2017 06:33:00 11/21/2017 07:52:00 DIS Emergency HUMBLE BARROS DO [facility] [place] ER [place] [id number] 05/10/2018 15:20:00 05/10/2018 23:59:59 CLS Outpatient KIRSTY PRETTYCHARIS [facility] [id number] 11/21/2017 06:32:00 11/21/2017 23:59:59 CLS Preadmit [facility] [place] ER [place]
[2018-06-16 07:45] VITALS: BP 151/78
[2018-06-16] MEDS: CYCLOPENTOLATE 1% (CYCLOGYL) 2 ML DROPS OP SCH ×3 (07:46→07:57)
[2018-06-16] MEDS: PHENYLEPHRINE 10% OPHTH (NEO-SYN) 5 ML BTL OU SCH ×3 (07:46→07:57)
[2018-06-16] MEDS ORDERED: MIDAZOLAM 2 MG/2 ML (VERSED) VIAL ONE (07:51)
--- NOTE | 2018-06-16 08:19 | Ophthalmologist Pre-Op Note ---
Pre-Operative Progress Note H&P Reviewed The H&P was reviewed, patient examined and no changes noted. Date H&P Reviewed: Jun 16, 2018 Time H&P Reviewed: 08:18 Pre-Op Dx Cataract, Left Eye MIGUEL BARBOZA MD Jun 16, 2018 08:19
--- NOTE | 2018-06-16 08:43 | Ophthalmology Operative Report ---
Cataract removal/placement IOL PREOPERATIVE DIAGNOSIS: Cataract Left Eye POSTOPERATIVE DIAGNOSIS: Cataract Left Eye PROCEDURE: Cataract removal and placement of posterior chamber implant, left eye SURGEON: Nabil Barboza ANESTHESIA: Topical with sedation COMPLICATIONS: None ESTIMATED BLOOD LOSS: Minimal DESCRIPTION OF PROCEDURE: After proper informed consent was obtained, the patient, a 77 female, was taken to the Operating Room and the left eye was anesthetized with tetracaine. The left eye was then prepped and draped in the usual manner. A wire lid speculum was placed. A paracentesis was made at the left hand position. Preservative free lidocaine was injected into the anterior chamber followed by viscoelastic. A clear corneal incision was made in the temporal position. A capsulorrhexis was preformed and the central nuclear and cortical material were removed. The posterior capsule was polished and an Osman 20.5 [id number] IOL was placed into the capsular bag. The residual viscoelastic was aspirated and balanced saline solution was injected into the anterior chamber. Vancomycin was injected into the anterior chamber. The wound was checked and found to be water tight. The patient tolerated the procedure well without complications. NABIL BARBOZA MD Jun 16, 2018 08:42
[2018-06-16 08:55] VITALS: BP 149/80
--- NOTE | 2018-06-16 13:15 | Anesthesia-General Post-Op ---
MAC Patient Condition Mental Status/LOC: Same as Preop Cardiovascular: Satisfactory Nausea/Vomiting: Absent Respiratory: Satisfactory Pain: Controlled Complications: Absent Post Op Complications Complications None Follow Up Care/Instructions Patient Instructions None needed. Anesthesiology Discharge Order Discharge Order Patient is doing well, no complaints, stable vital signs, no apparent adverse anesthesia problems. No complications reported per nursing. TEJINDER WALSH CRNA Jun 16, 2018 13:15
== END 2018-06-16 08:55 | disposition home or self-care (01) ==
LOC: SDC 07:22
PROVIDERS: ATTEND Specialist
DX: H25.12 Age-related nuclear cataract, left eye (principal); F41.9 Anxiety disorder, unspecified; F32.9 Major depressive disorder, single episode, unspecified; Z79.899 Other long term (current) drug therapy

== ENCOUNTER → 2018-07-14 | Outpatient (CLI) | payer MEDICARE, OTHER ==
--- NOTE | 2018-07-14 09:09 | Diagnostic Imaging Report ---
EXAM: LUMBAR SPINE - 2-3 VIEWS INDICATION: LOW BACK PAIN COMPARISON: MRI lumbar spine without and with IV contrast 05/20/2008. FINDINGS: There are 5 lumbar type vertebral bodies. Grade 1 retrolisthesis of L4 on L5 and anterolisthesis of L5 on S1 appears new since prior exams. There is moderate to advanced diffuse degenerative endplate changes, greatest at L4-S1. Advanced lower lumbar facet arthropathy is also greatest at L4-S1. Vertebral body heights preserved in the lumbar spine. No acute fractures. Right KUSHAL is partially visualized. Cholecystectomy clips. Mild atherosclerotic calcifications. 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 No acute radiographic findings. Dictated by: Dictated on workstation # [id number]
== END ==
LOC: RAD 08:22
PROVIDERS: ATTEND Nurse Practitioner Family
DX: M47.817 Spondylosis without myelopathy or radiculopathy, lumbosacral region (principal)
CPT/HCPCS: 72100

== ENCOUNTER → 2018-08-04 | Outpatient (CLI) | payer MEDICARE, OTHER ==
--- NOTE | 2018-08-04 14:47 | Diagnostic Imaging Report ---
PROCEDURE: MRI lumbar spine. TECHNIQUE: Multiplanar, multisequence MRI of the lumbar spine was performed without contrast. INDICATION: Back pain. Comparison is made with prior MRI of the lumbar spine from 05/20/2008. Curvature of the lumbar spine is normal. There is minimal retrolisthesis of L4 on L5. The vertebral body heights are maintained. No acute compression fracture is detected. There is generalized degenerative disc disease, greatest at L4-L5 level where there is complete loss of the disc space as well as desiccation and endplate osteophyte formation. This has progressed since MRI from 2007. The conus is unremarkable at the L2 level. T12-L1: No central canal or neural foraminal stenosis is identified. L1-L2: Unremarkable. L2-L3: There are degenerative facet changes and ligamentous thickening with mild trefoil configuration of the thecal sac. Central canal remains patent. No significant neural foraminal narrowing is seen. L3-L4: Hypertrophic facet changes and ligamentous thickening is seen with broad-based disc/osteophyte complex. This results in moderate trefoil stenosis to the central canal. Narrowing of bilateral lateral recesses. No significant neural foraminal stenosis is seen. L4-L5: There is broad-based disc/osteophyte complex. In addition, there is a focal midline disc/osteophyte protrusion indenting the ventral thecal sac. This does result in [id number] narrowing of the canal. There is significant narrowing of bilateral lateral recesses as well as moderate bilateral neural foraminal stenosis. L5-S1: Facet changes are seen. There is a broad-based disc/osteophyte complex, asymmetric to the right. This does result in severe right lateral recess stenosis. There is moderate left lateral recess stenosis. There is also moderate right and mild left neural foraminal stenosis. Paraspinous tissues demonstrates T2 hyperintense mass arising from the right kidney. This is barely visible on prior study and is most likely a renal cyst. IMPRESSION: Progression of lumbar spondylosis and facet arthropathy since exam 10 years earlier. There is multilevel central canal, lateral recess and neural foraminal stenosis described level by level above. No acute compression fracture is detected. Dictated by: Dictated on workstation # [id number]
== END ==
LOC: RAD 13:41
PROVIDERS: ATTEND Physician Assistant
DX: M48.07 Spinal stenosis, lumbosacral region (principal); M99.73 Connective tissue and disc stenosis of intervertebral foramina of lumbar region; M47.816 Spondylosis without myelopathy or radiculopathy, lumbar region; M43.16 Spondylolisthesis, lumbar region; M51.36 Other intervertebral disc degeneration, lumbar region; M25.78 Osteophyte, vertebrae
CPT/HCPCS: 72148

== ENCOUNTER 2018-09-04 14:15 | Outpatient (RCR) | payer MEDICARE, OTHER | END 2018-10-17 15:33 | disposition home or self-care (01) | PROVIDERS: ATTEND Physician Assistant | DX: M54.16 Radiculopathy, lumbar region (principal) ==

== ENCOUNTER 2018-09-19 15:02 | Emergency (ER) | payer MEDICARE, OTHER ==
[~2018-09-19] VITALS: Ht 165.1 cm; Wt 83.9 kg
[2018-09-19 15:10] LABS: BASOPHILS % (AUTO) 0 % (0-10); EOSINOPHILS # (AUTO) 0.2 10^3/uL (0.0-0.3); EOSINOPHILS % (AUTO) 2 % (0-10); HEMATOCRIT 44 % (35-52); HEMOGLOBIN 15.3 G/DL (11.5-16.0); LYMPHOCYTES # (AUTO) 3.4 X 10^3 (1.0-4.0); LYMPHOCYTES % (AUTO) 36 % (12-44); MEAN CORPUSCULAR HEMOGLOBIN 31 PG (25-34); MEAN CORPUSCULAR HGB CONC 35 G/DL (32-36); MEAN CORPUSCULAR VOLUME 90 FL (80-99); MEAN PLATELET VOLUME 9.2 FL (7.4-10.4); MONOCYTES # (AUTO) 1.2 X 10^3 (0.0-1.0); MONOCYTES % (AUTO) 12 % (0-12); NEUTROPHILS # (AUTO) 4.8 X 10^3 (1.8-7.8); NEUTROPHILS % (AUTO) 50 % (42-75); PLATELET COUNT 241 10^3/uL (130-400); RED BLOOD COUNT 4.91 10^6/uL (4.35-5.85); RED CELL DISTRIBUTION WIDTH 13.6 % (10.0-14.5); WHITE BLOOD COUNT 9.5 10^3/uL (4.3-11.0)
--- NOTE | 2018-09-19 15:19 | ED General ---
General Chief Complaint: Dizziness/Syncope Stated Complaint: SYNCOPE Nursing Triage Note: pt brought in by ems from [facility] with complaint of sycopable episode. pt states she was sitting in the chair having her vitals taken whenever she become flush and thought that she was going to pass out. pt was assisted to the floor by staff at office. Nursing Sepsis Screen: No Definite Risk Source of Information: Patient, EMS Exam Limitations: No Limitations History of Present Illness Date Seen by Provider: Sep 19, 2018 Time Seen by Provider: 15:16 Initial Comments ER per EMS from Dr. Engel's office where she had a syncopal event. She presented there to have vision checked to get glasses. The nurse attempted to get blood pressure several times while there with the machine and was unable to get a blood pressure. Patient states she was then lowered to the floor due to syncope. EMS was able to get a blood pressure of 118 over 70s on their arrival however the patient was very diaphoretic. To me, the patient states that she felt generally weak and poor this morning upon awakening and even when she first got to Dr. Brambila's office. She states that while she was there she did have a heavy sensation in her epigastric region with some discomfort in her left ear and left jaw. She attributes the jaw/ear pain to some bad teeth that she knows she has. No nausea. That sensation is now entirely gone. However, she still doesn't feel quite right. Timing/Duration: 4-6 Hours Severity: Moderate Associated Systoms: Syncope, Weakness Allergies and Home Medications Allergies Coded Allergies: Penicillins (Verified Allergy, Mild, RASH, ITCHING, 05/25/18) codeine (Unverified Allergy, Unknown, RASH, ITCHING, 05/25/18) Home Medications Cyanocobalamin (Vitamin B-12) 1,000 Mcg Tablet.er, 1,000 MCG PO DAILY, (Reported ) Duloxetine HCl 60 Mg Capsule.dr, 60 MG PO DAILY, (Reported) Esomeprazole Magnesium 40 Mg Cap, 40 MG PO DAILY, (Reported) Multivitamin 1 Each Tablet, 1 EACH PO DAILY, (Reported) Patient Home Medication List Home Medication List Reviewed: Yes Review of Systems Review of Systems Constitutional: see HPI, diaphoresis EENTM: see HPI Respiratory: no symptoms reported Cardiovascular: see HPI, syncope Genitourinary: no symptoms reported Musculoskeletal: no symptoms reported Skin: no symptoms reported Psychiatric/Neurological: No Symptoms Reported Hematologic/Lymphatic: No Symptoms Reported Immunological/Allergic: no symptoms reported Past Wiwnumz-Yjszcr-Okcppy Hx Patient Social History Alcohol Use: Denies Use Recreational Drug Use: No Smoking Status: Never a Smoker Recent Foreign Travel: No Contact w/Someone Who Travel: No Recent Infectious Disease Expo: No Recent Hopitalizations: No Immunizations Up To Date Date of Pneumonia Vaccine: Jul 03, 2013 Date of Influenza Vaccine: Jul 03, 2016 Seasonal Allergies Seasonal Allergies: No Past Medical History Surgeries: Yes Section, Hysterectomy, Joint Replacement, Orthopedic Respiratory: No Cardiac: Yes High Cholesterol Neurological: No Reproductive Disorders: No 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 0.0oz. 83.468511lx; 27.8 BMI Method:Stated General Appearance: No Apparent Distress, WD/WN Eyes: Bilateral Eye Normal Inspection, Bilateral Eye PERRL HEENT: PERRL/EOMI, TMs Normal Neck: Full Range of Motion, Normal Inspection Respiratory: Normal Breath Sounds, No Accessory Muscle Use, No Respiratory Distress Cardiovascular: Regular Rate, Rhythm Gastrointestinal: Normal Bowel Sounds, Non Tender, Soft; No Tenderness Extremity: Normal Capillary Refill, Normal Inspection Neurologic/Psychiatric: Alert, Oriented x3 Skin: Normal Color, Warm/Dry Progress/Results/Core Measures Suspected Sepsis Recent Fever Within 48 Hours: No Infection Criteria Present: None New/Unexplained Altered Menta: No Sepsis Screen: No Definite Risk SIRS Temperature:98.4 Pulse: 74 Respiratory Rate: 17 Laboratory Tests 09/19/18 15:00: White Blood Count 9.5 Blood Pressure 116 /47 Mean: 70 Laboratory Tests 09/19/18 15:00: Creatinine 0.87, Platelet Count 241, Total Bilirubin 0.5 Results/Orders Lab Results Laboratory Tests Test 09/19/18 15:00 09/19/18 16:10 12/18/18 18:29 Range/Units White Blood Count 9.5 4.3-11.0 10^3/uL Red Blood Count 4.91 4.35-5.85 10^6/uL Hemoglobin 15.3 11.5-16.0 G/DL Hematocrit 44 35-52 % Mean Corpuscular Volume 90 80-99 FL Mean Corpuscular Hemoglobin 31 25-34 PG Mean Corpuscular Hemoglobin Concent 35 32-36 G/DL Red Cell Distribution Width 13.6 10.0-14.5 % Platelet Count 241 130-400 10^3/uL Mean Platelet Volume 9.2 7.4-10.4 FL Neutrophils (%) (Auto) 50 42-75 % Lymphocytes (%) (Auto) 36 12-44 % Monocytes (%) (Auto) 12 0-12 % Eosinophils (%) (Auto) 2 0-10 % Basophils (%) (Auto) 0 0-10 % Neutrophils # (Auto) 4.8 1.8-7.8 X 10^3 Lymphocytes # (Auto) 3.4 1.0-4.0 X 10^3 Monocytes # (Auto) 1.2 H 0.0-1.0 X 10^3 Eosinophils # (Auto) 0.2 0.0-0.3 10^3/uL Basophils # (Auto) 0.0 0.0-0.1 10^3/uL Sodium Level 139 135-145 MMOL/L Potassium Level 4.3 3.6-5.0 MMOL/L Chloride Level 106 98-107 MMOL/L Carbon Dioxide Level 22 21-32 MMOL/L Anion Gap 11 5-14 MMOL/L Blood Urea Nitrogen 13 7-18 MG/DL Creatinine 0.87 0.60-1.30 MG/DL Estimat Glomerular Filtration Rate > 60 BUN/Creatinine Ratio 15 Glucose Level 98 70-105 MG/DL Calcium Level 9.4 8.5-10.1 MG/DL Corrected Calcium 9.3 8.5-10.1 MG/DL Total Bilirubin 0.5 0.1-1.0 MG/DL Aspartate Amino Transf (AST/SGOT) 34 5-34 U/L Alanine Aminotransferase (ALT/SGPT) 35 0-55 U/L Alkaline Phosphatase 121 40-136 U/L Troponin I < 0.30 < 0.30 <0.30 NG/ML Total Protein 7.9 6.4-8.2 GM/DL Albumin 4.1 3.2-4.5 GM/DL Lipase 17 8-78 U/L Urine Color YELLOW Urine Clarity CLEAR Urine pH 7 5-9 Urine Specific Council 1.010 L 1.016-1.022 Urine Protein NEGATIVE NEGATIVE Urine Glucose (UA) NEGATIVE NEGATIVE Urine Ketones NEGATIVE NEGATIVE Urine Nitrite NEGATIVE NEGATIVE Urine Bilirubin NEGATIVE NEGATIVE Urine Urobilinogen NORMAL NORMAL MG/DL Urine Leukocyte Esterase 1+ H NEGATIVE Urine RBC (Auto) NEGATIVE NEGATIVE Urine RBC NONE /HPF Urine WBC 2-5 /HPF Urine Crystals NONE /LPF Urine Bacteria TRACE /HPF Urine Casts NONE /LPF Urine Mucus SMALL H /LPF Urine Culture Indicated NO My Orders Orders - FRANK DEUTSCH APRN Chest 1 View, Ap/Pa Only (09/19/18 15:04) Ua Culture If Indicated (09/19/18 15:04) Cbc With Automated Diff (09/19/18 15:04) Comprehensive Metabolic Panel (09/19/18 15:04) Troponin I (09/19/18 15:04) Iv Heplock-Insert (Order) (09/19/18 15:04) Lipase (09/19/18 15:00) Ekg Tracing (09/19/18 16:06) Ondansetron Injection (Zofran Injectio (09/19/18 16:30) Acetaminophen Tablet (Tylenol Tablet) (09/19/18 16:30) Ns Iv 500 Ml (Sodium Chloride 0.9%) (09/19/18 16:45) Troponin I (09/19/18 17:37) Ekg Tracing (09/19/18 17:37) Ns Iv 500 Ml (Sodium Chloride 0.9%) (09/19/18 18:15) Medications Given in ED Current Medications Medications Dose Ordered Sig/Anson Route Start Time Stop Time Status Last Admin Dose Admin Acetaminophen 1,000 mg ONCE ONCE PO 09/19/18 16:30 1218 16:31 DC 09/19/18 16:34 1,000 MG Ondansetron HCl 4 mg ONCE ONCE IVP 1218 16:30 1218 16:31 DC 09/19/18 16:34 4 MG Vital Signs/I&O 12/18/18 15:02 Temp 98.4 Pulse 74 Resp 17 B/P (MAP) 116/47 (70) Pulse Ox 94 O2 Delivery Room Air Capillary Refill : Less Than 3 Seconds Blood Pressure Mean: 70 Departure Communication (Admissions) 1626-I discussed the case with Dr. Sheridan. She agrees with the plan to repeat troponin and EKG at 3 hour lamont. Patient states that aside from a headache and nausea she is feeling overall better at this time. Her EKG is unremarkable. 1910- patient states she is feeling "much better". Discussed plan to discharge with patient and her daughters were at the bedside. She agrees to return for any symptoms. Impression Primary Impression: Weakness Additional Impression: Syncope Disposition: 01 HOME, SELF-CARE Condition: Stable Departure-Patient Inst. Decision time for Depature: 19:08 Referrals: IRIS WATERS DO (PCP/Family) Primary Care Physician Patient Instructions: Syncope (Fainting) (DC) Add. Discharge Instructions: 1. Return to ER for any chest pain shortness of breath nausea or other concerns. Call Dr. Sheridan tomorrow to make an appointment to be seen for follow-up this week. All discharge instructions reviewed with patient and/or family. Voiced understanding. FRANK DEUTSCH JUVENILE CORRECTIONS OFFICER Sep 19, 2018 15:18
--- OUTSIDE RECORDS SUMMARY | 2018-09-19 15:26 | XMS REPORT ---
Author Author ISMAEL VELASCO Organization [facility] Address [address] [place] [address] Care Team Providers Care Junior Recruiter Name Role Phone ISMAEL VELASCO Unavailable PROBLEMS Unknown Problems ALLERGIES No Information ENCOUNTERS Encounter Location Date Diagnosis [facility] [id number] [place] [phone] May, [facility] [id number] [place] [id number] Apr, Dental caries K02.9 [facility] [id number] [place] [id number] Mar, Dental examination Z01.20 [facility] [id number] [place] [address] [id number] Nov, Dental caries K02.9 [facility] [id number] [place] [id number] Nov, Dental examination Z01.20 [facility] [id number] [place] [phone] Aug, Visit for TB skin test Z11.1 and Screening for tuberculosis Z11.1 IMMUNIZATIONS No Known Immunizations SOCIAL HISTORY Never Assessed REASON FOR VISIT Eye Exam PLAN OF CARE VITAL SIGNS MEDICATIONS Unknown Medications RESULTS No Results PROCEDURES No Known procedures INSTRUCTIONS MEDICATIONS ADMINISTERED No Known Medications MEDICAL (GENERAL) HISTORY Type Description Date Medical History Angina Medical History hip replacement 1988 Medical History predisone Medical History cancer of the lip Medical History arthritis Medical History neck injuries Surgical History hip replacement 1988 Surgical History neck surgery 2009 Surgical History 1960 Surgical History 1967 Hospitalization History above surg Hospitalization History [facility] [place] [place] 11/21/2017
--- OUTSIDE RECORDS SUMMARY | 2018-09-19 15:27 | XMS REPORT | Continuity of Care Document ---
Author Author [facility] Organization [facility] Address Unknown Phone Unavailable Allergies Active Description Code Type Severity Reaction Onset Reported/Identified Relationship to Patient Clinical Status Yes codeine [id number] Drug Allergy Unknown Hives 11/21/2017 Yes Penicillins [id number] Drug Allergy Unknown Hives 11/21/2017 Yes codeine [id number] Drug Allergy Unknown RASH, ITCHING 05/25/2018 Yes Penicillins [id number] Drug Allergy Mild RASH, ITCHING 05/25/2018 Medications [...] Ot Z98.1 ARTHRODESIS STATUS 12/12/2015 BLADIMIR ARCE MECHANICAL SERVICE TECHNICIAN Ot I65.23 01/12/2016 BLADIMIR ARCE MECHANICAL SERVICE TECHNICIAN Ot M19.031 01/15/2016 BLADIMIR ARCE MECHANICAL SERVICE TECHNICIAN Ot M19.031 01/16/2016 BRITT MUSTAFA, SATINDER [...] Ot Z98.1 ARTHRODESIS STATUS 01/29/2016 BLADIMIR ARCE MECHANICAL SERVICE TECHNICIAN Ot M19.031 PRIMARY OSTEOARTHRITIS, RIGHT WRIST [...] Ot Z98.1 ARTHRODESIS STATUS 02/19/2016 BLADIMIR ARCE MECHANICAL SERVICE TECHNICIAN Ot M19.031 PRIMARY OSTEOARTHRITIS, RIGHT WRIST 02/20/2016 THALIA HU [employer] Ot M25.521 PAIN IN RIGHT ELBOW 02/20/2016 THALIA HU [employer] Ot M79.631 PAIN IN RIGHT FOREARM 03/19/2016 [...] STENOSIS OF BILATERAL BUCK 05/13/2017 BLADIMIR ARCE MECHANICAL SERVICE TECHNICIAN Ot M19.031 PRIMARY OSTEOARTHRITIS, RIGHT WRIST 05/13/2017 THALIA HU [employer] Ot M25.521 PAIN IN RIGHT ELBOW 05/13/2017 THALIA HU Nicholas [employer] Ot M79.631 PAIN IN RIGHT FOREARM 05/13/2017 MIGUEL DOLISA W Ot M24.831 OTH SPECIFIC JOINT DERANGEMENTS OF RIGHT 05/13/2017 MIGUEL DO LISA W Ot M25.531 PAIN IN RIGHT WRIST 05/13/2017 MIGUEL DOLISA W Ot M65.841 OTHER SYNOVITIS AND TENOSYNOVITIS, RIGHT 05/16/2017 BLADIMIR ARCE MECHANICAL SERVICE TECHNICIAN Ot K44.9 DIAPHRAGMATIC HERNIA WITHOUT OBSTRUCTION 05/16/2017 BLADIMIR ARCE MECHANICAL SERVICE TECHNICIAN Ot K52.9 NONINFECTIVE GASTROENTERITIS AND COLITIS 05/16/2017 BLADIMIR ARCE MECHANICAL SERVICE TECHNICIAN Ot K76.0 FATTY (CHANGE OF) LIVER, NOT ELSEWHERE C 05/16/2017 BLADIMIR ARCE MECHANICAL SERVICE TECHNICIAN Ot N28.1 CYST OF KIDNEY, ACQUIRED 05/16/2017 BLADIMIR ARCE MECHANICAL SERVICE TECHNICIAN Ot Z90.49 ACQUIRED ABSENCE OF OTHER SPECIFIED PART 05/16/2017 BLADIMIR ARCE MECHANICAL SERVICE TECHNICIAN Ot Z96.641 PRESENCE OF RIGHT ARTIFICIAL HIP JOINT 06/07/2017 BLADIMIR ARCE MECHANICAL SERVICE TECHNICIAN Ot K44.9 DIAPHRAGMATIC HERNIA WITHOUT OBSTRUCTION 06/07/2017 BLADIMIR ARCE MECHANICAL SERVICE TECHNICIAN Ot K52.9 NONINFECTIVE GASTROENTERITIS AND COLITIS 06/07/2017 BLADIMIR ARCE MECHANICAL SERVICE TECHNICIAN Ot K76.0 FATTY (CHANGE OF) LIVER, NOT ELSEWHERE C 06/07/2017 BLADIMIR ARCE MECHANICAL SERVICE TECHNICIAN Ot N28.1 CYST OF KIDNEY, ACQUIRED 06/07/2017 BLADIMIR ARCE MECHANICAL SERVICE TECHNICIAN Ot Z90.49 ACQUIRED ABSENCE OF OTHER SPECIFIED PART 06/07/2017 BLADIMIR ARCE MECHANICAL SERVICE TECHNICIAN Ot Z96.641 PRESENCE OF RIGHT ARTIFICIAL HIP JOINT 07/08/2017 BLADIMIR ARCE MECHANICAL SERVICE TECHNICIAN Ot K44.9 DIAPHRAGMATIC HERNIA WITHOUT OBSTRUCTION 07/08/2017 BLADIMIR ARCE MECHANICAL SERVICE TECHNICIAN Ot K52.9 NONINFECTIVE GASTROENTERITIS AND COLITIS 07/08/2017 BLADIMIR ARCE MECHANICAL SERVICE TECHNICIAN Ot K76.0 FATTY (CHANGE OF) LIVER, NOT ELSEWHERE C 07/08/2017 BLADIMIR ARCE MECHANICAL SERVICE TECHNICIAN Ot N28.1 CYST OF KIDNEY, ACQUIRED 07/08/2017 BLADIMIR ARCE MECHANICAL SERVICE TECHNICIAN Ot Z90.49 ACQUIRED ABSENCE OF OTHER SPECIFIED PART 07/08/2017 BLADIMIR ARCE MECHANICAL SERVICE TECHNICIAN Ot Z96.641 PRESENCE OF RIGHT ARTIFICIAL [...] CARDIOVAS SYS SYMP NEC 04/13/2018 BLADIMIR ARCE MECHANICAL SERVICE TECHNICIAN Ot I65.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 AND STENOSIS OF BILATERAL BUCK 04/13/2018 BLADIMIR ARCE MECHANICAL SERVICE TECHNICIAN Ot M19.031 PRIMARY OSTEOARTHRITIS, RIGHT WRIST 04/13/2018 THALIA HU [employer] Ot M25.521 PAIN IN RIGHT ELBOW 04/13/2018 THALIA HU [employer] Ot M79.631 PAIN IN RIGHT FOREARM 04/13/2018 MIGUEL CASTROLISA Ot M24.831 OTH SPECIFIC JOINT DERANGEMENTS OF RIGHT 04/13/2018 MIGUELLoc CASTRO LISA Alexander Ot M25.531 PAIN IN RIGHT WRIST 04/13/2018 MIGUEL DOLISA Ot M65.841 OTHER SYNOVITIS AND TENOSYNOVITIS, RIGHT 04/13/2018 BLADIMIR ARCE MECHANICAL SERVICE TECHNICIAN Ot K44.9 DIAPHRAGMATIC HERNIA WITHOUT OBSTRUCTION 04/13/2018 BLADIMIR ARCE MECHANICAL SERVICE TECHNICIAN Ot K52.9 NONINFECTIVE GASTROENTERITIS AND COLITIS 04/13/2018 BLADIMIR ARCE MECHANICAL SERVICE TECHNICIAN Ot K76.0 FATTY (CHANGE OF) LIVER, NOT ELSEWHERE C 04/13/2018 BLADIMIR ARCE MECHANICAL SERVICE TECHNICIAN Ot N28.1 CYST OF KIDNEY, ACQUIRED 04/13/2018 BLADIMIR ARCE MECHANICAL SERVICE TECHNICIAN Ot Z90.49 ACQUIRED ABSENCE OF OTHER SPECIFIED PART 04/13/2018 BLADIMIR ARCE MECHANICAL SERVICE TECHNICIAN Ot Z96.641 PRESENCE OF RIGHT ARTIFICIAL [...] R20.0 ANESTHESIA OF SKIN 05/29/2018 TORRES GREENE [employer] Ot R53.1 WEAKNESS 05/29/2018 TORRES GREENE [employer] Ot Z90.710 ACQUIRED ABSENCE OF BOTH CERVIX AND UTER 05/29/2018 TORRES GREENE [employer] Ot Z96.641 PRESENCE OF RIGHT ARTIFICIAL HIP JOINT 05/30/2018 MIGUEL BARBOZA MD Ot H25.811 COMBINED FORMS OF AGE-RELATED CATARACT, 05/30/2018 MIGUEL BARBOZA MD Ot K21.9 GASTRO-ESOPHAGEAL REFLUX DISEASE WITHOUT 06/01/2018 MIGUEL BARBOZA MD Ot H25.811 COMBINED FORMS OF AGE-RELATED CATARACT, 06/01/2018 MIGUEL BARBOZA MD Ot K21.9 GASTRO-ESOPHAGEAL REFLUX DISEASE WITHOUT 06/02/2018 TORRES GREENE [employer] Ot M25.551 PAIN IN RIGHT HIP 06/02/2018 TORRES GREENE APRN Ot M79.651 PAIN IN RIGHT THIGH 06/02/2018 TORRES GREENE APRN Ot R20.0 ANESTHESIA OF SKIN 06/02/2018 TORRES GREENE [employer] Ot R53.1 WEAKNESS 06/02/2018 TORRES GREENE [employer] Ot Z90.710 ACQUIRED ABSENCE OF BOTH CERVIX AND UTER 06/02/2018 TORRES GREENE [employer] Ot Z96.641 PRESENCE OF RIGHT ARTIFICIAL HIP JOINT 06/14/2018 MIGUEL BARBOZA MD Ot Z01.818 ENCOUNTER FOR OTHER PREPROCEDURAL EXAMIN 06/15/2018 MIGUEL BARBOZA MD Ot Z01.818 ENCOUNTER FOR OTHER PREPROCEDURAL EXAMIN 06/15/2018 TORRES GREENE APRN Ot R09.89 OTH SYMPTOMS AND SIGNS INVOLVING THE CIR 06/16/2018 MIGUEL BARBOZA MD Ot F32.9 MAJOR DEPRESSIVE DISORDER, SINGLE EPISOD 06/16/2018 MIGUEL BARBOZA MD Ot F41.9 ANXIETY DISORDER, UNSPECIFIED 06/16/2018 MIGUEL BARBOZA MD Ot H25.12 AGE-RELATED NUCLEAR CATARACT, LEFT EYE 06/16/2018 MIGUEL BARBOZA MD Ot Z79.899 OTHER GROUP HOME (CURRENT) DRUG THERAPY 06/20/2018 MIGUEL BARBOZA MD Ot F32.9 MAJOR DEPRESSIVE DISORDER, SINGLE EPISOD 06/20/2018 TAMRA MUSTAFA, MIGUEL L Ot F41.9 ANXIETY DISORDER, UNSPECIFIED 06/20/2018 TAMRA MUSTAFA, MIGUEL L Ot H25.12 AGE-RELATED NUCLEAR CATARACT, LEFT EYE 06/20/2018 TAMRA MUSTAFA, MIGUEL L Ot Z79.899 OTHER FINANCE VICE PRESIDENT (CURRENT) DRUG THERAPY 06/21/2018 TAMRA MUSTAFA, MIGUEL L Ot F32.9 MAJOR DEPRESSIVE DISORDER, SINGLE EPISOD 06/21/2018 TAMRA MUSTAFA, MIGUEL L Ot F41.9 ANXIETY DISORDER, UNSPECIFIED 06/21/2018 TAMRA MUSTAFA, MIGUEL L Ot H25.12 AGE-RELATED NUCLEAR CATARACT, LEFT EYE 06/21/2018 TAMRA MUSTAFA, MIGUEL L Ot Z79.899 OTHER FINANCE VICE PRESIDENT (CURRENT) DRUG THERAPY 06/22/2018 ENRRIQUE BARBOZA MDNE L Ot F32.9 MAJOR DEPRESSIVE DISORDER, SINGLE EPISOD 06/22/2018 TAMRA MUSTAFA, MIGUEL L Ot F41.9 ANXIETY DISORDER, UNSPECIFIED 06/22/2018 TAMRA MUSTAFA, MIGUEL L Ot H25.12 AGE-RELATED NUCLEAR CATARACT, LEFT EYE 06/22/2018 TAMRA MUSTAFA, MIGUEL L Ot Z79.899 OTHER GROUP HOME (CURRENT) DRUG THERAPY 06/22/2018 TORRES GREENE [employer] Ot M25.551 PAIN IN RIGHT HIP 06/22/2018 TORRES GREENE [employer] Ot Z96.643 PRESENCE OF ARTIFICIAL HIP JOINT, BILATE 06/23/2018 TORRES GREENE [employer] Ot M25.551 PAIN IN RIGHT HIP 06/23/2018 TORRES GREENE [employer] Ot M79.651 PAIN IN RIGHT THIGH 06/23/2018 TORRES GREENE [employer] Ot R20.0 ANESTHESIA OF SKIN 06/23/2018 TORRES GREENE [employer] Ot R53.1 WEAKNESS 06/23/2018 TORRES GREENE [employer] Ot Z90.710 ACQUIRED ABSENCE OF BOTH CERVIX AND UTER 06/23/2018 TORRES GREENE [employer] Ot Z96.641 PRESENCE OF RIGHT ARTIFICIAL HIP JOINT 07/07/2018 TORRES GREENE ARCH[employer] Ot M25.551 PAIN IN RIGHT HIP 07/07/2018 TORRES GREENE AR[employer] Ot Z96.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 PRESENCE OF ARTIFICIAL HIP JOINT, BILATE 07/07/2018 TORRES GREENE [employer] Ot M25.551 PAIN IN RIGHT HIP 07/07/2018 JC TORRES M [employer] Ot M79.651 PAIN IN RIGHT THIGH 07/07/2018 TORRES GREENE [employer] Ot R20.0 ANESTHESIA OF SKIN 07/07/2018 JC TORRES M [employer] Ot R53.1 WEAKNESS 07/07/2018 JC TORRES M [employer] Ot Z90.710 ACQUIRED ABSENCE OF BOTH CERVIX AND UTER 07/07/2018 JC TORRES Alisa [employer] Ot Z96.641 PRESENCE OF RIGHT ARTIFICIAL HIP JOINT 08/02/2018 KARIN BELLC, ALI FACP CCDS Ot 530.81 ESOPHAGEAL REFLUX 08/02/2018 KARIN MUSTAFA FACC, ALI FACP CCDS Ot 627.2 SYMPT MENOPAUSE OR FEMALE CLIMACTERIC ST 08/02/2018 KARIN MUSTAFA FACC, ALI FACP CCDS Ot 780.79 OTH MALAISE FATIGUE 08/02/2018 KARIN MUSTAFA FACC, ALI FACP CCDS Ot 786.09 RESPIRATORY ABNORM NEC 08/02/2018 KARIN MUSTAFA FACC, ALI FACP CCDS Ot 786.50 CHEST PAIN NOS 08/02/2018 KARIN MUSTAFA FACC, ALI FACP CCDS Ot 530.81 ESOPHAGEAL REFLUX 08/02/2018 KARIN MUSTAFA FACC, ALI FACP CCDS Ot 627.2 SYMPT MENOPAUSE OR FEMALE CLIMACTERIC ST 08/02/2018 KARIN MUSTAFA FACC, ALI FACP CCDS Ot 780.79 OTH MALAISE FATIGUE 08/02/2018 KARIN MUSTAFA FACC, ALI FACP CCDS Ot 786.09 RESPIRATORY ABNORM NEC 08/02/2018 KARIN MUSTAFA FACC, ALI FACP CCDS Ot 786.50 CHEST PAIN NOS 08/02/2018 GUSTAVO MUSTAFA, JUAN Monterroso Ot 785.9 CARDIOVAS SYS SYMP NEC 08/02/2018 BLADIMIR ARCE MECHANICAL SERVICE TECHNICIAN Ot I65.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 AND STENOSIS OF BILATERAL BUCK 08/02/2018 BLADIMIR ARCE MECHANICAL SERVICE TECHNICIAN Ot M19.031 PRIMARY OSTEOARTHRITIS, RIGHT WRIST 08/02/2018 THALIA HU [employer] Ot M25.521 PAIN IN RIGHT ELBOW 08/02/2018 THALIA HU [employer] Ot M79.631 PAIN IN RIGHT FOREARM 08/02/2018 LISA RIVERA DO W Ot M24.831 OTH SPECIFIC JOINT DERANGEMENTS OF RIGHT 08/02/2018 MIGUEL CASTRO LISA Alexander Ot M25.531 PAIN IN RIGHT WRIST 08/02/2018 MIGUEL CASTROLISA Ot M65.841 OTHER SYNOVITIS AND TENOSYNOVITIS, RIGHT 08/02/2018 BLADIMIR ARCEP Ot K44.9 DIAPHRAGMATIC HERNIA WITHOUT OBSTRUCTION 08/02/2018 BLADIMIR ARCEP Ot K52.9 NONINFECTIVE GASTROENTERITIS AND COLITIS 08/02/2018 BLADIMIR ARCE MECHANICAL SERVICE TECHNICIAN Ot K76.0 FATTY (CHANGE OF) LIVER, NOT ELSEWHERE C 08/02/2018 BLADIMIR ARCE MECHANICAL SERVICE TECHNICIAN Ot N28.1 CYST OF KIDNEY, ACQUIRED 08/02/2018 BLADIMIR ARCEP Ot Z90.49 ACQUIRED ABSENCE OF OTHER SPECIFIED PART 08/02/2018 BLADIMIR ARCEP Ot Z96.641 PRESENCE OF RIGHT ARTIFICIAL HIP JOINT 08/02/2018 BAYLEE MUSTAFA, TREVOR Cuellar Ot K21.9 GASTRO-ESOPHAGEAL REFLUX DISEASE WITHOUT 08/02/2018 BAYLEE MUSTAFA, TREVOR Cuellar Ot Z01.818 ENCOUNTER FOR OTHER PREPROCEDURAL EXAMIN 08/02/2018 BAYLEE MUSTAFA, TREVOR Cuellar Ot Z12.11 ENCOUNTER FOR SCREENING FOR MALIGNANT NE 08/02/2018 TORRES GREENE APRN Ot R09.89 OT SYMPTOMS AND SIGNS INVOLVING THE CIR 08/02/2018 TORRES GREENE APRN Ot M25.551 PAIN IN RIGHT HIP 08/02/2018 TORRES GREENE APRN Ot Z96.643 PRESENCE OF ARTIFICIAL HIP JOINT, BILATE 08/02/2018 TORRES GREENE APRN Ot M25.551 PAIN IN RIGHT HIP 08/02/2018 TORRES GREENE APRN Ot M79.651 PAIN IN RIGHT THIGH 08/02/2018 TORRES GREENE APRN Ot R20.0 ANESTHESIA OF SKIN 08/02/2018 TORRES GREENE APRN Ot R53.1 WEAKNESS 08/02/2018 TORRES GREENE APRN Ot Z90.710 ACQUIRED ABSENCE OF BOTH CERVIX AND UTER 08/02/2018 TORRES GREENE APRN Ot Z96.641 PRESENCE OF RIGHT ARTIFICIAL HIP JOINT 08/02/2018 TORRES GREENE APRN Ot M47.817 SPONDYLS W/O MYELOPATHY OR RADICULOPATHY 08/07/2018 CAITIE AYERSUA R Ot 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 Results Test [...] Status Pt. Type Provider Facility Loc./Unit Complaint [id number] 09/04/2018 14:15:00 09/04/2018 23:59:59 CLS Outpatient SATINDER AYERS [facility] REHAB L4-L5 BACK PAIN [id number] 08/04/2018 13:41:00 08/04/2018 23:59:59 CLS Outpatient SATINDER AYERS [facility] RAD BACK PAIN [id number] 07/14/2018 08:22:00 07/14/2018 23:59:59 CLS Outpatient TORRES GREENE APRN [facility] RAD LOW BACK PAIN [id number] 07/07/2018 15:02:00 07/07/2018 23:59:59 CLS Preadmit BLADIMIR ARCE [facility] RAD DYSPHAGIA [id number] 06/16/2018 07:22:00 06/16/2018 08:55:00 DIS Outpatient MIGUEL BARBOZA MD [facility] CATARACT LEFT EYE [id number] 06/14/2018 05:57:00 06/14/2018 13:26:00 DIS Outpatient MIGUEL BARBOZA MD [facility] PREOP CATARACT LEFT EYE [id number] 05/30/2018 07:19:00 05/30/2018 08:54:00 DIS Outpatient MIGUEL BARBOZA MD [facility] CATARACT RIGHT EYE [id number] 05/27/2018 10:06:00 05/27/2018 23:59:59 CLS Outpatient TORRES GREENE APRN [facility] RAD RT HIP PAIN [id number] 05/25/2018 06:22:00 05/25/2018 14:00:00 DIS Outpatient MIGUEL BARBOZA MD [facility] PREOP CATARACT RIGHT EYE [id number] 05/23/2018 14:37:00 05/23/2018 23:59:59 CLS Outpatient TORRES GREENE APRN [facility] RAD RIGHT HIP PAIN [id number] 04/14/2018 14:05:00 04/14/2018 23:59:59 CLS Outpatient TORRES GREENE APRN [facility] RAD BRUIT [id number] 07/25/2017 07:30:00 07/25/2017 11:20:00 DIS Outpatient TREVOR BEACH MD [facility] ENDO SCREENING/CHRONIC GERD [id number] 07/21/2017 05:37:00 07/21/2017 11:08:00 DIS Outpatient TREVOR BEACH MD [facility] PREOP COLONOSCOPY, EGD [id number] 07/08/2017 05:20:00 07/08/2017 23:59:59 CLS Outpatient TREVOR BEACH MD [facility] PREOP SCREENING/CHRONIC GERD [id number] 05/13/2017 13:57:00 05/13/2017 23:59:59 CLS Outpatient BLADIMIR ARCE [facility] RAD ABD PAIN [id number] 03/19/2016 17:02:00 03/19/2016 23:59:59 CLS Outpatient LISA RIVERA DO [facility] RAD RT WRIST PAIN [id number] 02/19/2016 09:38:00 02/19/2016 23:59:59 CLS Outpatient THALIA HU [employer] [facility] RAD RT ELBOW AND FOREARM PAIN SEVERE [id number] 01/09/2016 14:34:00 01/09/2016 23:59:59 CLS Outpatient BLADIMIR ARCE MECHANICAL SERVICE TECHNICIAN [facility] RAD RT WRIST PAIN [id number] 11/30/2015 09:03:00 11/30/2015 13:12:00 DIS Arvind DE LA TORRE MD, SATINDER Parra [facility] ER BODY ACHES,VOMITING, DIARRHEA [id number] 11/06/2015 12:33:00 11/06/2015 23:59:59 CLS Outpatient BLADIMIR ARCE MECHANICAL SERVICE TECHNICIAN [facility] RAD STENOSIS [id number] 11/18/2014 11:00:00 11/18/2014 23:59:59 CLS Outpatient JUAN CHEN MD [facility] RAD CAROTID BRUIT [id number] 07/30/2013 10:59:00 07/30/2013 23:59:59 CLS Outpatient YULIET FRAZIER MD, FACC, FACP CCDS [facility] RAD CP,DYSPNEA, WEAKNESS [id number] 07/25/2013 07:44:00 07/25/2013 23:59:59 CLS Outpatient YULIET FRAZIER MD, FACC, FACP CCDS [facility] CARD CP,DYSPNEA, WEAKNESS [id number] 12/06/2014 06:47:00 Document Registration [id number] 01/05/2013 08:43:00 Document Registration [id number] 02/11/2012 10:40:00 Document Registration [id number] 10/22/2011 06:11:00 Document Registration [id number] 04/22/2011 08:29:00 Document Registration [id number] 04/06/2011 07:26:00 Document Registration [id number] 03/08/2011 06:38:00 Document Registration [id number] 02/14/2011 16:13:00 Document Registration [id number] 12/10/2010 05:38:00 Document Registration [id number] 12/03/2010 11:01:00 Document Registration [id number] 10/28/2010 12:35:00 Document Registration [id number] 10/17/2010 12:21:00 Document Registration [id number] 03/30/2010 09:50:00 Document Registration 0000 08/18/2017 09:45:23 08/18/2017 23:59:59 CLS Outpatient [id number] 11/21/2017 06:33:00 11/21/2017 07:52:00 DIS Emergency HUMBLE BARROS DO [facility] [place] [facility] ER [place] [id number] 05/10/2018 15:20:00 05/10/2018 23:59:59 CLS Outpatient CHARIS LOFTON [facility] [id number] 11/21/2017 06:32:00 11/21/2017 23:59:59 CLS Preadmit [facility] [place] ER [place]
[2018-09-19 15:34] LABS: ALANINE AMINOTRANSFERASE 35 U/L (0-55); ALBUMIN 4.1 GM/DL (3.2-4.5); ALKALINE PHOSPHATASE 121 U/L (40-136); BILIRUBIN,TOTAL 0.5 MG/DL (0.1-1.0); BUN/CREATININE RATIO 15; CALCIUM 9.4 MG/DL (8.5-10.1); CARBON DIOXIDE 22 MMOL/L (21-32); CHLORIDE 106 MMOL/L (98-107); CREATININE SERUM 0.87 MG/DL (0.60-1.30); GFR ESTIMATED > 60; GLUCOSE 98 MG/DL (70-105); LIPASE 17 U/L (8-78); POTASSIUM 4.3 MMOL/L (3.6-5.0); SODIUM 139 MMOL/L (135-145); TOTAL PROTEIN 7.9 GM/DL (6.4-8.2)
--- NOTE | 2018-09-19 15:54 | Diagnostic Imaging Report ---
INDICATION: Syncope. FINDINGS: The lungs are clear. The heart size and vascularity are normal. There is no effusion or pneumothorax. IMPRESSION: No acute appearing abnormality. Dictated by: Dictated on workstation # [id number]
[2018-09-19] MEDS ORDERED: ONDANSETRON 4 MG/2 ML (SDV) Z0FRAN IVP ONE (16:30)
[2018-09-19] MEDS ORDERED: ACETAMINOPHEN 500 MG TAB (TYLENOL) PO ONE (16:30)
[2018-09-19] MEDS ORDERED: NS IV 500 ML 500 ML IV SCH ×2 (16:45→18:15)
[2018-09-19 18:37] LABS: BILIRUBIN,URINE NEGATIVE (NEGATIVE); CLARITY,URINE CLEAR; COLOR,URINE YELLOW; GLUCOSE, URINE (UA) NEGATIVE (NEGATIVE); KETONES,URINE NEGATIVE (NEGATIVE); LEUKOCYTE ESTERASE ,URINE 1+ (NEGATIVE); NITRITE,URINE NEGATIVE (NEGATIVE); PH,URINE 7 (5-9); PROTEIN,URINE NEGATIVE (NEGATIVE); UROBILINOGEN,URINE NORMAL (NORMAL)
[2018-09-19 18:49] LABS: BACTERIA,URINE TRACE /HPF
[2018-09-19 19:18] VITALS: BP 118/63
== END 2018-09-19 19:19 | disposition home or self-care (01) ==
LOC: EDUNIT# 15:02 → ER 15:03
DX: R53.1 Weakness (principal); R55 Syncope and collapse; E78.00 Pure hypercholesterolemia, unspecified; K21.9 Gastro-esophageal reflux disease without esophagitis; F41.9 Anxiety disorder, unspecified; F32.9 Major depressive disorder, single episode, unspecified; Z85.828 Personal history of other malignant neoplasm of skin; Z88.0 Allergy status to penicillin; Z88.5 Allergy status to narcotic agent; Z90.710 Acquired absence of both cervix and uterus; Z98.890 Other specified postprocedural states
CPT/HCPCS: 36415; 71045; 80053; 81000; 83690; 84484; 85025; 93005

== ENCOUNTER 2018-12-23 17:20 | Observation (INO) | payer MEDICARE, OTHER ==
[~2018-12-23] VITALS: Ht 160 cm; Wt 83.0 kg
[~2018-12-23 17:20] MED LIST changes: +CHOL200014 PO; -CHOL200085 PO; -NAPR220C46 PO; +NAPR220C61 PO
--- OUTSIDE RECORDS SUMMARY | 2018-12-23 17:29 | XMS REPORT | CCD ---
Author Author Abril Sheridan Organization Abril Sheridan MD, [facility] Address [address] [place] [address] Phone Care Team Providers Care Donor Technician Name Role Phone PP Unavailable CCM Unavailable Summary Purpose Interface Exchange Insurance Providers Payer name Policy type / Coverage type Covered republican ID Effective Begin Date Effective End Date WPS Medicare Part B Medicare Part B [id number] Unknown Unknown [employer] Medicare Part B [id number] Unknown Unknown Family history Sister Diagnosis Age [...] Description Effective Dates Tobacco history SNOMED CT: 683553131 Never smoker 11/30/[address]: 037003668 Never drinks alcohol 11/30/2012 Has the patient ever used illegal drugs? Unknown Has never used illegal drugs 11/30/2012 Has the patient used marijuana? Unknown No 11/30/2012 Has the patient used cocaine? Unknown No 11/30/2012 Allergies, Adverse Reactions, Alerts Substance Reaction Codes Entered Date Inactivated Date Status * NO KNOWN ENVIRONMENTAL ALLERGIES Unknown 11/30/2012 No Inactive Date Active * NO KNOWN FOOD ALLERGIES Unknown 11/30/2012 No Inactive Date Active CODEINE rash, RxNorm: 2670 11/30/2012 No Inactive Date Active Penicillin Unknown 11/30/2012 No Inactive Date Active Past Medical History Illness Codes Condition Status Onset Date Resolved Date Cramp and spasm ICD-9 : 729.82 ICD-10: R25.2 Active 07/14/2018 Unknown Palpitations ICD-9: 785.1 ICD-10: R00.2 Active 07/14/2018 Unknown Dysphonia ICD-9: 784.42 ICD-10: R49.0 Active 07/06/2018 Unknown Low back pain ICD-9: 724.2 ICD-10: M54.5 Active 06/07/2018 Unknown Other fatigue ICD-9: 780.79 ICD-10: R53.83 Active 01/13/2017 Unknown Pain in right leg ICD- 9: 729.5 ICD-10: M79.604 Active 06/07/2018 Unknown Paresthesia of skin ICD-9: 782.0 ICD-10: R20.2 Active 06/07/2018 Unknown Trochanteric bursitis, right hip ICD-9: 726.5 ICD-10: M70.61 Active 04/28/2018 Unknown Dizziness and giddiness ICD-9: 780.4 ICD-10: R42 Active 04/03/2018 Unknown Localized edema ICD-9 : 782.3 ICD-10: R60.0 Active 04/03/2018 Unknown Other psoriasis ICD-9 : 696.1 ICD-10: L40.8 Active 11/16/2016 Unknown Generalized anxiety disorder ICD-9: 300.00 ICD-10: F41.1 Active 06/21/2017 Unknown Major depressive disorder, single episode, moderate ICD-9: 296.22 ICD-10: F32.1 Active 06/21/2017 Unknown Periapical abscess without sinus ICD-9: 522.4 [...] ICD-9: 787.02 ICD-10: R11.0 Active 12/08/2015 Unknown Vitamin B12 deficiency anemia, unspecified ICD-9: [...] Problems Condition Codes Effective Dates Condition Status Cramp and spasm ICD-9 : 729.82 ICD-10: R25.2 07/14/2018 Active Palpitations ICD-9: 785.1 ICD-10: R00.2 07/14/2018 Active Dysphonia ICD-9: 784.42 ICD-10: R49.0 07/06/2018 Active Low back pain ICD-9: 724.2 ICD-10: M54.5 06/07/2018 Active Other fatigue ICD-9: 780.79 ICD-10: R53.83 01/13/2017 Active Pain in right leg ICD- 9: 729.5 ICD-10: M79.604 06/07/2018 Active Paresthesia of skin ICD-9: 782.0 ICD-10: R20.2 06/07/2018 Active Trochanteric bursitis, right hip ICD-9: 726.5 ICD-10: M70.61 04/28/2018 Active Dizziness and giddiness ICD-9: 780.4 ICD-10: R42 04/03/2018 Active Localized edema ICD-9 : 782.3 ICD-10: R60.0 04/03/2018 Active Other psoriasis ICD-9 : 696.1 ICD-10: L40.8 11/16/2016 Active Generalized anxiety disorder ICD-9: 300.00 ICD-10: F41.1 06/21/2017 Active Major depressive disorder, single episode, moderate ICD-9: 296.22 ICD-10: F32.1 06/21/2017 Active Periapical abscess without sinus ICD-9: 522.4 [...] Nausea ICD-9: 787.02 ICD-10: R11.0 12/08/2015 Active Vitamin B12 deficiency anemia, unspecified ICD-9: [...] Instructions Nexium 40 mg capsule,delayed release RxNorm: 639521 Capsule(s) TAKE ONE CAPSULE BY MOUTH ONCE DAILY 11/08/2018 No Stop Date Active Nexium 40 mg capsule,delayed release RxNorm: 072318 Capsule(s) TAKE ONE CAPSULE BY MOUTH ONCE DAILY 11/06/2018 11/07/2018 Inactive Nexium 40 mg capsule,delayed release RxNorm: 334338 Capsule(s) TAKE ONE CAPSULE BY MOUTH ONCE DAILY 10/31/2018 11/05/2018 Inactive Cymbalta 30 mg capsule,delayed release RxNorm: 784200 TAKE ONE CAPSULE BY MOUTH ONCE DAILY 07/11/2018 No Stop Date Active Nexium 40 mg capsule,delayed release RxNorm: 917412 TAKE ONE CAPSULE BY MOUTH ONCE DAILY 07/11/2018 10/30/2018 Inactive gabapentin 100 mg capsule RxNorm: 299256 1 Capsule(s) PO TID 08/04/2018 Inactive prednisone 20 mg tablet RxNorm: 993798 2 Tablet(s) PO daily 01/201806/11/2018 Inactive betamethasone dipropionate 0.05 % topical cream RxNorm: 600736 1 Application TOP BID 06/06/2018 No Stop Date Active Voltaren 1 % topical gel RxNorm: 101225 1 Application TOP BID 04/28/2018 No Stop Date Active naproxen 500 mg tablet RxNorm: 139625 1 Tablet(s) PO BID 201705/02/2018 Inactive betamethasone dipropionate 0.05 % topical cream RxNorm: 343790 1 Application TOP BID 04/03/2018 06/05/2018 Inactive Nexium 40 mg capsule,delayed release RxNorm: 530056 TAKE ONE CAPSULE BY MOUTH ONCE DAILY 10/31/2017 07/10/2018 Inactive Cymbalta 30 mg capsule,delayed release RxNorm: 334062 1 Capsule(s) PO daily 10/18/2017 04/15/2018 Inactive clindamycin HCl 300 mg capsule RxNorm: 637843 1 Capsule(s) PO TID 10/18/2017 10/27/2017 Inactive tramadol 50 mg tablet RxNorm: 410232 1 Tablet(s) PO TID as needed 10/18/2017 07/03/2018 Inactive Cymbalta 30 mg capsule,delayed release RxNorm: 824822 1 Capsule(s) PO daily 10/04/2017 10/17/2017 Inactive Cymbalta 30 mg capsule,delayed release RxNorm: 562722 1 Capsule(s) PO daily 10/04/2017 10/03/2017 Inactive prednisone 20 mg tablet RxNorm: 204408 2 Tablet(s) PO daily 09/04/2017 Inactive betamethasone dipropionate 0.05 % topical cream RxNorm: 360637 1 Application TOP BID 08/31/2017 04/02/2018 Inactive Wellbutrin XL 150 mg 24 hr tablet, extended release RxNorm: 314912 1 Tablet(s) PO daily 07/26/2017 10/17/2017 Inactive Wellbutrin XL 150 mg 24 hr tablet, extended release RxNorm: 158885 1 Tablet(s) PO daily 06/21/2017 07/20/2017 Inactive Pepcid 20 mg tablet RxNorm: 751288 1 Tablet(s) PO BID 201606/23/2017 Inactive hydroxyzine HCl 25 mg tablet RxNorm: 750009 1 Tablet(s) PO TID as needed 06/14/2017 07/03/2018 Inactive itching/insomnia Flagyl 500 mg tablet RxNorm: 445967 1 Tablet(s) PO TID 201605/22/2017 Inactive Cipro 500 mg tablet RxNorm: 138367 1 Tablet(s) PO BID 201605/22/2017 Inactive Lexapro 20 mg tablet RxNorm: 931795 Tablet(s) TAKE ONE TABLET BY MOUTH ONCE DAILY 03/04/2017 08/15/2017 Inactive Nexium 40 mg capsule,delayed release RxNorm: 534423 TAKE ONE CAPSULE BY MOUTH ONCE DAILY 02/14/2017 08/15/2017 Inactive Vitamin D2 50,000 unit capsule RxNorm: 226944 1 Capsule(s) PO QW 01/19/2017 04/12/2017 Inactive one weekly for 12 weeks then 2000 units daily thereafter Lexapro 20 mg tablet RxNorm: 073910 TAKE ONE TABLET BY MOUTH ONCE DAILY 01/14/2017 03/03/2017 Inactive betamethasone dipropionate 0.05 % topical ointment RxNorm: 616036 1 Application TOP BID in between gentamycin applications 11/16/2016 No Stop Date Active prednisone 10 mg tablet RxNorm: 741872 Tablet(s) PO UD 201610/17/2017 Inactive 6,6,5,5,4,4,3,3,2,2,1,1, then 1/2 every other day x 2 doses Lexapro 20 mg tablet RxNorm: 517530 Tablet(s) 1 Tablet(s) PO daily 08/27/2016 03/03/2017 Inactive Lexapro 20 mg tablet RxNorm: 719321 1 Tablet(s) PO daily 201508/26/2016 Inactive Lexapro 20 mg tablet RxNorm: 409893 1 Tablet(s) PO daily 201508/24/2016 Inactive Lexapro 20 mg tablet RxNorm: 566885 1 Tablet(s) PO daily 201507/21/2016 Inactive hydrocodone 5 mg-acetaminophen 325 mg tablet RxNorm: 419799 1 Tablet(s) PO Q6 PRN 06/10/2016 07/03/2018 Inactive hydroxyzine HCl 25 mg tablet RxNorm: 187459 1 Tablet(s) PO HS PRN 06/10/2016 07/09/2016 Inactive itching/anxiety/insomnia meloxicam 7.5 mg tablet RxNorm: 865071 2 Tablet(s) PO daily 05/201608/16/2017 Inactive Lexapro 20 mg tablet RxNorm: 630465 1 Tablet(s) PO daily 201506/10/2016 Inactive prednisone 10 mg tablets in a dose pack RxNorm: 873819 1 Tablet(s) PO UD 04/13/2016 04/18/2016 Inactive 6-5-4-3-2-1 Kenalog 40 mg/mL suspension for injection RxNorm: 7301760 Milliliter(s) Inj 04/13/2016 04/13/2016 Inactive Lexapro 20 mg tablet RxNorm: 486620 1 Tablet(s) PO daily 201504/29/2016 Inactive Vitamin D3 5,000 unit tablet RxNorm: 873388 2 Tablet(s) PO daily 03/22/2016 No Stop Date Active gentamicin 0.1 % topical ointment RxNorm: 121594 1 Application TOP QID to affected skin tissue 03/22/20162015 Inactive folic acid 1 mg tablet RxNorm: 782967 1 Tablet(s) PO daily 10/17/2017 Inactive betamethasone dipropionate 0.05 % topical ointment RxNorm: 750128 1 Application TOP BID in between gentamycin applications 03/15/2016 11/15/2016 Inactive gentamicin 0.1 % topical ointment RxNorm: 313809 1 Application TOP QID to affected skin tissue 03/02/20162015 Inactive ciprofloxacin 500 mg tablet RxNorm: 058375 1 Tablet(s) PO BID 03/02/2016 03/11/2016 Inactive nystatin 100,000 unit/gram topical cream RxNorm: 605150 1 Application TOP BID 02/23/2016 No Stop Date Active Lexapro 20 mg tablet RxNorm: 317689 1 Tablet(s) PO daily 201503/23/2016 Inactive prednisone 20 mg tablet RxNorm: 739450 2 Tablet(s) PO daily 02/27/2016 Inactive Ultram 50 mg tablet RxNorm: 737079 1 Tablet(s) PO Q6 PRN as needed 02/19/2016 03/01/2016 Inactive duloxetine 60 mg capsule,delayed release RxNorm: 136531 1 Capsule(s) PO daily 01/26/2016 03/01/2016 Inactive [SAVINGS FOR UNINSURED PATIENTS -- BIN:[id number], PCN: ASPROD1, Group: AME08, ID# [id number], Process claim through NaHere, for questions: . THIS IS NOT INSURANCE.] Nexium 40 mg capsule,delayed release RxNorm: 955329 1 Tablet(s) PO daily 01/09/2016 04/02/2017 Inactive [SAVINGS FOR NON-COVERED DRUGS -- BIN:030696, PCN: ASPROD1, Group: XXXXX, ID# [id number], Questions: . THIS IS NOT INSURANCE.] ketoconazole 2 % topical cream RxNorm: 203760 1 Application TOP BID 01/09/2016 01/22/2016 Inactive triamcinolone acetonide 0.1 % topical cream RxNorm: 4432508 1 Application TOP BID 01/09/2016 01/22/2016 Inactive Nexium 40 mg capsule,delayed release RxNorm: 949019 1 Tablet(s) PO daily 01/09/2016 01/08/2016 Inactive [SAVINGS FOR NON-COVERED DRUGS -- BIN:309490, PCN: ASPROD1, Group: XXXXX, ID# [id number], Questions: . THIS IS NOT INSURANCE.] Diflucan 150 mg tablet RxNorm: 006831 1 Tablet(s) PO daily 05/201602/06/2016 Inactive daily x 7 days then weekly x 4 weeks clotrimazole 1 % topical cream RxNorm: 811779 1 Application TOP BID 12/09/2015 12/22/2015 Inactive hydroxyzine HCl 25 mg tablet RxNorm: 066452 1 Tablet(s) PO HS PRN 11/14/2015 06/13/2017 Inactive itching/insomnia Levaquin 500 mg tablet RxNorm: 854927 1 Tablet(s) PO daily 09/201611/23/2015 Inactive Vitamin D2 50,000 unit capsule RxNorm: 766458 1 Capsule(s) PO QW 11/05/2015 01/27/2016 Inactive one weekly for 12 weeks then 2000 units daily thereafter duloxetine 60 mg capsule,delayed release RxNorm: 113764 1 Capsule(s) PO daily 11/04/2015 01/25/2016 Inactive [SAVINGS FOR UNINSURED PATIENTS -- BIN:943167, PCN: ASPROD1, Group: AME08, ID# [id number], Process claim through NaHere, for questions: . THIS IS NOT INSURANCE.] Levaquin 500 mg tablet RxNorm: 597755 1 Tablet(s) PO daily hold diflucan while on the ABX then resume diflucan once completed 11/03/2015 11/09/2015 Inactive Levaquin 500 mg tablet RxNorm: 076651 1 Tablet(s) PO daily 10/201511/02/2015 Inactive nystatin 100,000 unit/gram topical powder RxNorm: 931982 1 Application TOP QID apply to breast tissue, and abdominal folds 10/31/2015 12/29/2015 Inactive dispense quantity sufficient Diflucan 150 mg tablet RxNorm: 756976 1 Tablet(s) PO daily 11/13/2015 Inactive daily x 10 days then weekly x 4 weeks Diflucan 150 mg tablet RxNorm: 485732 1 Tablet(s) PO every other day 10/08/2015 11/18/2015 Inactive [SAVINGS FOR UNINSURED PATIENTS -- BIN:422147, PCN: ASPROD1, Group: AME08, ID# [id number], Process claim through NaHere, for questions: . THIS IS NOT INSURANCE.] nystatin 100,000 unit/gram topical powder RxNorm: 641351 1 Application TOP QID apply to breast tissue, and abdominal folds 07/28/2015 08/24/2015 Inactive dispense quantity sufficient mupirocin 2 % topical ointment RxNorm: 723709 1 Application TOP TID apply under breast tissue and abdominal folds 07/24/2015 03/01/2016 Inactive dispense qs x 14 days nystatin 100,000 unit/gram topical powder RxNorm: 782328 1 Application TOP QID apply to breast tissue, and abdominal folds 07/24/2015 07/27/2015 Inactive dispense quantity sufficient pravastatin 20 mg tablet RxNorm: 427880 1 Tablet(s) PO daily 03/01/2016 Inactive [SAVINGS FOR UNINSURED PATIENTS -- BIN:462326, PCN: ASPROD1, Group: [id number] , ID# [id number], Process claim through MedImpact, for questions: . THIS IS NOT INSURANCE.] Nexium 40 mg capsule,delayed release RxNorm: 775611 TAKE ONE CAPSULE BY MOUTH ONCE DAILY 12/30/2014 06/27/2015 Inactive Nexium 40 mg capsule,delayed release RxNorm: 441744 1 Tablet(s) PO daily 12/30/2014 01/08/2016 Inactive [SAVINGS FOR NON-COVERED DRUGS -- BIN:773029, PCN: ASPROD1, Group: XXXXX, ID# [id number], Questions: . THIS IS NOT INSURANCE.] prednisone 20 mg tablet RxNorm: 554861 3 Tablet(s) PO daily 09/201512/16/2014 Inactive [SAVINGS FOR NON-COVERED DRUGS -- BIN:527124, PCN: ASPROD1, Group: XXXXX, ID# [id number], Questions: . THIS IS NOT INSURANCE.] Kenalog 40 mg/mL suspension for injection RxNorm: 9397973 Milliliter(s) Inj 12/12/2014 12/12/2014 Inactive [SAVINGS FOR NON-COVERED DRUGS -- BIN:438266, PCN: ASPROD1, Group: XXXXX, ID# [id number], Questions: . THIS IS NOT INSURANCE.] pravastatin 10 mg tablet RxNorm: 909962 1 Tablet(s) PO daily 11/17/2014 Inactive pravastatin 10 mg tablet RxNorm: 915023 1 Tablet(s) PO daily 11/17/2014 Inactive [SAVINGS FOR UNINSURED PATIENTS -- BIN:879409, PCN: ASPROD1, Group: AME08 , ID# [id number], Process claim through MedImpact, for questions: . THIS IS NOT INSURANCE.] pravastatin 10 mg tablet RxNorm: 421667 1 Tablet(s) PO daily 06/15/2015 Inactive pravastatin 10 mg tablet RxNorm: 214819 1 Tablet(s) PO daily 03/02/2015 Inactive [SAVINGS FOR UNINSURED PATIENTS -- BIN:713019, PCN: ASPROD1, Group: AME08 , ID# [id number], Process claim through MedImpact, for questions: . THIS IS NOT INSURANCE.] duloxetine 60 mg capsule,delayed release RxNorm: 883253 1 Capsule(s) PO daily 11/11/2014 06/08/2015 Inactive [SAVINGS FOR UNINSURED PATIENTS -- BIN:063257, PCN: ASPROD1, Group: AME08, ID# [id number], Process claim through MedImpact, for questions: . THIS IS NOT INSURANCE.] Brisdelle 7.5 mg capsule RxNorm: 8970204 1 Capsule(s) PO daily 11/11/2014 01/09/2015 Inactive [SAVINGS FOR UNINSURED PATIENTS -- BIN:200833, PCN: ASPROD1, Group: AME08, ID# [id number], Process claim through MedImpact, for questions: [phone]. THIS IS NOT INSURANCE.] Diflucan 150 mg tablet RxNorm: 732552 1 Tablet(s) PO every other day 11/11/2014 12/22/2014 Inactive [SAVINGS FOR UNINSURED PATIENTS -- BIN:943240, PCN: ASPROD1, Group: AME08, ID# [id number], Process claim through MedImpact, for questions: . THIS IS NOT INSURANCE.] nystatin 100,000 unit/gram topical powder RxNorm: 883774 1 Application TOP QID apply to breast tissue, and abdominal folds 07/15/2014 07/28/2014 Inactive dispense quantity sufficient Diflucan 150 mg tablet RxNorm: 792217 1 Tablet(s) PO daily 10/201307/07/2014 Inactive mupirocin 2 % topical ointment RxNorm: 637854 1 Application TOP TID apply under breast tissue and abdominal folds 05/17/2014 06/13/2014 Inactive dispense qs x 14 days gemfibrozil 600 mg tablet RxNorm: 311930 1 Tablet(s) PO BID 08/201412/10/2013 Inactive gemfibrozil 600 mg tablet RxNorm: 284978 1 Tablet(s) PO BID 08/201403/02/2015 Inactive Medrol ([place]) 4 mg tablets in a dose pack RxNorm: 362675 Tablet(s) PO as directed 12/05/2013 06/03/2014 Inactive Ultram 50 mg tablet RxNorm: 591647 1 Tablet(s) PO Q6 PRN 12/0502/18/2016 Inactive nystatin 100,000 unit/gram topical powder RxNorm: 938487 1 Application TOP QID apply to breast tissue, and abdominal folds 12/04/2013 07/02/2014 Inactive dispense quantity sufficient Nexium 40 mg capsule,delayed release RxNorm: 650081 1 Tablet(s) PO daily 12/04/2013 12/29/2014 Inactive Kenalog 40 mg/mL suspension for injection RxNorm: 2443568 Milliliter(s) Inj 12/04/2013 12/04/2013 Inactive mupirocin 2 % topical ointment RxNorm: 918380 1 Application TOP TID apply under breast tissue and abdominal folds 12/04/2013 12/17/2013 Inactive dispense qs x 14 days Cymbalta 60 mg capsule,delayed release RxNorm: 763540 1 Capsule(s) PO daily 12/04/2013 11/10/2014 Inactive Diflucan 150 mg tablet RxNorm: 769399 1 Tablet(s) PO daily 11/28/2013 Inactive Cymbalta 60 mg capsule,delayed release RxNorm: 769204 1 Capsule(s) PO daily 11/13/2013 12/03/2013 Inactive Diflucan 150 mg tablet RxNorm: 659149 1 Tablet(s) PO daily 08/201411/19/2013 Inactive nystatin 100,000 unit/gram topical powder RxNorm: 304767 1 Gram(s) TOP BID 11/13/2013 11/22/2013 Inactive Vitamin D2 50,000 unit capsule RxNorm: 668684 1 Capsule(s) PO QW 07/03/2013 No Stop Date Active one weekly for 12 weeks then 2000 units daily thereafter sucralfate 100 mg/mL Oral Susp RxNorm: 172475 10 Milliliter(s) PO QID 07/02/2013 10/29/2013 Inactive estradiol 0.5 mg tablet RxNorm: 880266 1 Tablet(s) PO daily 07/02/2014 Inactive promethazine 25 mg/mL Injection RxNorm: 973969 Milliliter(s) Inj 07/02/2013 07/02/2013 Inactive Kenalog 40 mg/mL Susp for Injection RxNorm: 4121005 Milliliter(s) Inj 06/18/2013 06/18/2013 Inactive clindamycin 300 mg capsule RxNorm: 130728 1 Capsule(s) PO TID 06/18/2013 06/24/2013 Inactive meloxicam 7.5 mg tablet RxNorm: 534318 1 Tablet(s) PO daily 07/01/2013 Inactive Cymbalta 60 mg capsule,delayed release RxNorm: 678964 1 Capsule(s) PO daily 05/07/2013 11/02/2013 Inactive Nexium 40 mg capsule,delayed release RxNorm: 028053 1 Tablet(s) PO daily 02/15/2013 09/12/2013 Inactive Vitamin D2 50,000 unit capsule RxNorm: 494947 1 Capsule(s) PO QW 12/07/2012 03/06/2013 Inactive one weekly for 12 weeks then 2000 units daily thereafter Vitamin D2 50,000 unit capsule RxNorm: 555998 1 Capsule(s) PO QW 12/07/2012 12/06/2012 Inactive one weekly for 12 weeks then 2000 units daily thereafter pantoprazole 40 mg tablet,delayed release RxNorm: 826876 1 Tablet(s) PO QPM 11/30/2012 02/14/2013 Inactive sucralfate 100 mg/mL Oral Susp RxNorm: 180957 10 Milliliter(s) PO QID 10 ML by mouth before meals and before bed 11/30/2012 02/15/2013 Inactive multivitamin tablet RxNorm: 1 Tablet(s) PO daily No Start Date Active jonny Red [place] 3 Krill Oil RxNorm: 1 PO BID No Start Date Active Xanax 0.5 mg tablet RxNorm: 320618 1/2 to 1 Tablet(s) PO Q6 PRN No Start Date 03/01/2016 Inactive Cymbalta 60 mg capsule,delayed release RxNorm: 333404 1 Capsule(s) PO daily No Start Date 05/06/2013 Inactive betamethasone dipropionate 0.05 % topical ointment RxNorm: 194087 1 Application TOP BID in between gentamycin applications No Start Date 03/14/2016 Inactive Aleve 220 mg tablet RxNorm: 567262 2 Tablet(s) PO daily No Start Date 03/21/2016 Inactive Vitamin B-12 1,000 mcg tablet RxNorm: 776868 1 Tablet(s) PO daily No Start Date 10/17/2017 Inactive Vitamin D3 2,000 unit capsule RxNorm: 389893 1 Capsule(s) PO daily No Start Date 12/12/2013 Inactive omeprazole 20 mg capsule,delayed release RxNorm: 833384 1 Capsule(s) PO daily No Start Date 11/30/2012 Inactive Ultram 50 mg tablet RxNorm: 826728 1 Tablet(s) PO Q6 PRN No Start Date 12/04/2013 Inactive folic acid oral RxNorm : oral No Start Date 03/21/2016 Inactive Vitamin D3 5,000 unit tablet RxNorm: 170720 1 Tablet(s) PO daily No Start Date 03/21/2016 Inactive Calcium 500 + D (D3) 500 mg-125 unit tablet RxNorm: 774271 1 Tablet(s) PO daily No Start Date 03/21/2016 Inactive Medrol ([place]) 4 mg tablets in a dose pack RxNorm: 998232 Tablet(s) PO as doctor directed No Start Date 12/04/2013 Inactive Medication Administered Medication Codes Instructions Start Date Status Kenalog 40 mg/mL suspension for injection RxNorm: 3714437 Milliliter 04/13/2016 No longer Active Kenalog 40 mg/mL suspension for injection RxNorm: 4560541 Milliliter 12/12/2014 No longer Active Kenalog 40 mg/mL suspension for injection RxNorm: 7258400 Milliliter 12/04/2013 No longer Active promethazine 25 mg/mL Injection RxNorm: 302511 Milliliter 07/02/2013 No longer Active Kenalog 40 mg/mL Susp for Injection RxNorm: 1229721 Milliliter 06/18/2013 No longer Active Immunizations Vaccine Codes Date Status Influenza CVX: 141 07/03/2014 completed Influenza CVX: 141 10/02/2012 completed Assessments Condition Codes Effective Dates Cramp and spasm ICD-10: R25.2 ICD-9: 729.82 07/14/2018 Palpitations ICD-10: R00.2 ICD-9: 785.1 07/14/2018 Pain in right leg ICD-10: M79.604 ICD-9: 729.5 07/06/2018 Dysphonia ICD-10: R49.0 ICD-9: 784.42 07/06/2018 Other fatigue ICD-10: R53.83 ICD-9: 780.79 07/06/2018 Paresthesia of skin ICD-10: R20.2 ICD-9: 782.0 07/06/2018 Low back pain ICD-10: M54.5 ICD-9: 724.2 06/07/2018 Trochanteric bursitis, right hip ICD-10: M70.61 ICD-9: 726.5 04/28/2018 Dizziness and giddiness ICD-10: R42 ICD-9: 780.4 04/03/2018 Localized edema ICD-10: R60.0 ICD-9: 782.3 04/03/2018 Other psoriasis ICD-10: L40.8 ICD-9: 696.1 04/03/2018 Generalized anxiety disorder ICD-10: F41.1 ICD-9: 300.00 10/18/2017 Periapical abscess without sinus ICD-10: K04.7 ICD-9: 522.4 10/18/2017 Major depressive disorder, single episode, moderate ICD-10: F32.1 ICD-9: 296.22 10/18/2017 Gastro-esophageal reflux disease without esophagitis ICD-10 [...] anemia, unspecified ICD-10: D51.9 ICD-9: 266.2 01/13/2017 Primary generalized (osteo)arthritis ICD-10: M15.0 ICD-9: [...] Visit Reason For Visit Effective Dates Notes low back and leg pain 07/06/2018 hip pain 06/07/2018 hip pain 04/28/2018 edema 04/03/2018 anxiety 10/18/2017 medication follow up 08/31/2017 medication [...] Observation Code Item Item Code Result Date Magnesium Ord90 Mag 1.9 mg/dL 07/14/2018 Free T4 Bxw640 FREE T4 0.71 ng/dL 07/14/2018 Tsh Ord6 TSH (3rd IS) 1.73 uIU/mL 07/14/2018 Tsh Ord6 TSH (3rd IS) 1.50 uIU/mL 04/03/2018 Comp Metabolic Eba201 NA 137 mEq/L 04/03/2018 Comp Metabolic Uhs896 K 4.4 mEq/L 04/03/2018 Comp Metabolic Xoh392 CL 99 mEq/L 04/03/2018 Comp Metabolic Oqi864 CO2 29.0 mEq/L 04/03/2018 Comp Metabolic Sul076 ANION GAP 13 04/03/2018 Comp Metabolic Qxv600 GLUCOSE 88 mg/dL 04/03/2018 Comp Metabolic Xui048 Creat 0.9 mg/dL 04/03/2018 Comp Metabolic Wqm328 eGFR 64 ml/min/1.73m2 04/03/2018 Comp Metabolic Muk008 BUN 21 mg/dL 04/03/2018 Comp Metabolic Vkm094 B/C Ratio 23.1 Ratio 04/03/2018 Comp Metabolic Zlt987 CALCIUM 10.0 mg/dL 04/03/2018 Comp Metabolic Epg640 ALK PHOS 112 U/L 04/03/2018 Comp Metabolic Xlc846 AST(SGOT) 24 U/L 04/03/2018 Comp Metabolic Ugq889 ALT(SGPT) 20 U/L 04/03/2018 Comp Metabolic Wau144 BILI T 0.3 mg/dL 04/03/2018 Comp Metabolic Geq667 ALBUMIN 4.4 g/dL 04/03/2018 Comp Metabolic Kuw168 TPRO 7.0 g/dL 04/03/2018 Comp Metabolic Dff798 GLOB 2.6 g/dL 04/03/2018 Comp Metabolic Qcy605 A/G Ratio 1.7 Ratio 04/03/2018 Comp Metabolic Nqm524 Osmo 276 mOsmo 04/03/2018 Cbc With Differential Ord2 WBC 11.05 K/ul 04/03/2018 Cbc With Differential Ord2 RBC 4.83 M/ul 04/03/2018 Cbc With Differential Ord2 HGB 15.3 g/dl 04/03/2018 Cbc With Differential Ord2 HCT 45.3 % 04/03/2018 Cbc With Differential Ord2 Neut% 47.8 % 04/03/2018 Cbc With Differential Ord2 MCV 93.8 fl 04/03/2018 Cbc With Differential Ord2 Lymph% 42.3 % 04/03/2018 Cbc With Differential Ord2 [place]% 8.6 % 04/03/2018 Cbc With Differential Ord2 MCH 31.7 pg 04/03/2018 Cbc With Differential Ord2 MCHC 33.8 pg 04/03/2018 Cbc With Differential Ord2 Eos% 1.0 % 04/03/2018 Cbc With Differential Ord2 PLT 281 K/ul 04/03/2018 Cbc With Differential Ord2 Baso% 0.3 % 04/03/2018 Cbc With Differential Ord2 RDW 13.5 % 04/03/2018 Cbc With Differential Ord2 Neut ABS# 5.29 K/ul 04/03/2018 Cbc With Differential Ord2 Lymph ABS# 4.67 K/ul 04/03/2018 Cbc With Differential Ord2 [place] ABS# 1.0 K/ul 04/03/2018 Cbc With Differential Ord2 Eos ABS# 0.1 K/ul 04/03/2018 Cbc With Differential Ord2 Baso ABS# 0.0 K/ul 04/03/2018 Vitamin D 25 Oh [id number] VITAMIN D, 25 HYDROXY 34.42 ng/mL Cbc With Differential Ord2 WBC 8.06 K/ul 01/13/2017 Cbc With Differential Ord2 RBC 4.68 M/ul 01/13/2017 Cbc With Differential Ord2 HGB 14.9 g/dl 01/13/2017 Cbc With Differential Ord2 Neut% 54.2 % 01/13/2017 Cbc With Differential Ord2 HCT 44.4 % 01/13/2017 Cbc With Differential Ord2 Lymph% 36.7 % 01/13/2017 Cbc With Differential Ord2 MCV 94.9 fl 01/13/2017 Cbc With Differential Ord2 [place]% 6.7 % 01/13/2017 Cbc With Differential Ord2 MCH 31.8 pg 01/13/2017 Cbc With Differential Ord2 MCHC 33.6 pg 01/13/2017 Cbc With Differential Ord2 Eos% 1.9 % 01/13/2017 Cbc With Differential Ord2 Baso% 0.5 % 01/13/2017 Cbc With Differential Ord2 PLT 271 K/ul 01/13/2017 Cbc With Differential Ord2 Neut ABS# 4.37 K/ul 01/13/2017 Cbc With Differential Ord2 RDW 13.3 % 01/13/2017 Cbc With Differential Ord2 Lymph ABS# 2.96 K/ul 01/13/2017 Cbc With Differential Ord2 [place] ABS# 0.5 K/ul 01/13/2017 Cbc With Differential Ord2 Eos ABS# 0.2 K/ul 01/13/2017 Cbc With Differential Ord2 Baso ABS# 0.0 K/ul 01/13/2017 B12 [id number] B12 562.00 pg/ml 01/13/2017 Elle Reflex Profile [id number] [place] (ARVIND) SCREEN NONE DETECTED 04/17/2016 Cbc With Differential Ord2 WBC 9.07 K/ul 04/13/2016 Cbc With Differential Ord2 RBC 4.38 M/ul 04/13/2016 Cbc With Differential Ord2 HGB 13.5 g/dl 04/13/2016 Cbc With Differential Ord2 HCT 40.0 % 04/13/2016 Cbc With Differential Ord2 Neut% 49.1 % 04/13/2016 Cbc With Differential Ord2 MCV 91.3 fl 04/13/2016 Cbc With Differential Ord2 Lymph% 42.6 % 04/13/2016 Cbc With Differential Ord2 [place]% 6.7 % 04/13/2016 Cbc With Differential Ord2 MCH 30.8 pg 04/13/2016 Cbc With Differential Ord2 Eos% 1.3 % 04/13/2016 Cbc With Differential Ord2 MCHC 33.8 pg 04/13/2016 Cbc With Differential Ord2 PLT 270 K/ul 04/13/2016 Cbc With Differential Ord2 Baso% 0.3 % 04/13/2016 Cbc With Differential Ord2 RDW 13.7 % 04/13/2016 Cbc With Differential Ord2 Neut ABS# 4.45 K/ul 04/13/2016 Cbc With Differential Ord2 Lymph ABS# 3.86 K/ul 04/13/2016 Cbc With Differential Ord2 [place] ABS# 0.6 K/ul 04/13/2016 Cbc With Differential Ord2 Eos ABS# 0.1 K/ul 04/13/2016 Cbc With Differential Ord2 Baso ABS# 0.0 K/ul 04/13/2016 Ra Factor Urn548 RA FACTOR <10 IU/ml 04/13/2016 Comp Metabolic Nbr013 NA 138 mEq/L 04/13/2016 Comp Metabolic Haq790 K 3.7 mEq/L 04/13/2016 Comp Metabolic Nuu633 CL 104 mEq/L 04/13/2016 Comp Metabolic Zta608 CO2 25.0 mEq/L 04/13/2016 Comp Metabolic Mlo367 ANION GAP 13 04/13/2016 Comp Metabolic Efz224 GLUCOSE 146 mg/dL 04/13/2016 Comp Metabolic Zjl567 Creat 0.9 mg/dL 04/13/2016 Comp Metabolic Vpw004 eGFR 69 ml/min/1.73m2 04/13/2016 Comp Metabolic Qqw715 BUN 14 mg/dL 04/13/2016 Comp Metabolic Ddk972 B/C Ratio 16.5 Ratio 04/13/2016 Comp Metabolic Vxb422 CALCIUM 9.5 mg/dL 04/13/2016 Comp Metabolic Bol443 ALK PHOS 107 U/L 04/13/2016 Comp Metabolic Nru742 AST(SGOT) 16 U/L 04/13/2016 Comp Metabolic Unr584 ALT(SGPT) 17 U/L 04/13/2016 Comp Metabolic Rwa489 BILI T 0.2 mg/dL 04/13/2016 Comp Metabolic Fwe214 ALBUMIN 4.0 g/dL 04/13/2016 Comp Metabolic Rja800 TPRO 6.6 g/dL 04/13/2016 Comp Metabolic Qwg033 GLOB 2.6 g/dL 04/13/2016 Comp Metabolic Rvg875 A/G Ratio 1.5 Ratio 04/13/2016 Comp Metabolic Smr425 Osmo 279 mOsmo 04/13/2016 Sed Rate Ord21 ESR 36 mm/hr 04/13/2016 Uric Acid Ord77 Uric A 6.7 mg/dL 04/13/2016 C-Reactive Protein Qnt Crqnt CRP 1.3 mg/dl 04/13/2016 Vitamin D 25 Oh Rge7881 VITAMIN D, 25 HYDROXY 49.37 ng/mL Comp Metabolic Yxr687 NA 136 mEq/L 02/24/2016 Comp Metabolic Eti894 K 4.2 mEq/L 02/24/2016 Comp Metabolic Hji888 CL 98 mEq/L 02/24/2016 Comp Metabolic Yrx255 CO2 30.0 mEq/L 02/24/2016 Comp Metabolic Qsv444 ANION GAP 12 02/24/2016 Comp Metabolic Ybv105 GLUCOSE 115 mg/dL 02/24/2016 Comp Metabolic Xcw855 Creat 0.9 mg/dL 02/24/2016 Comp Metabolic Eaz974 eGFR 67 ml/min/1.73m2 02/24/2016 Comp Metabolic Gwp049 BUN 22 mg/dL 02/24/2016 Comp Metabolic Eoa322 B/C Ratio 25.3 Ratio 02/24/2016 Comp Metabolic Wnh741 CALCIUM 9.8 mg/dL 02/24/2016 Comp Metabolic Xmd504 ALK PHOS 124 U/L 02/24/2016 Comp Metabolic Gmj523 AST(SGOT) 19 U/L 02/24/2016 Comp Metabolic Iov062 ALT(SGPT) 18 U/L 02/24/2016 Comp Metabolic Srl666 BILI T 0.4 mg/dL 02/24/2016 Comp Metabolic Gbi661 ALBUMIN 4.6 g/dL 02/24/2016 Comp Metabolic Rio751 TPRO 7.8 g/dL 02/24/2016 Comp Metabolic Ndy760 GLOB 3.3 g/dL 02/24/2016 Comp Metabolic Wuy761 A/G Ratio 1.4 Ratio 02/24/2016 Comp Metabolic Guv176 Osmo 276 mOsmo 02/24/2016 Sed Rate Ord21 ESR 37 mm/hr 02/24/2016 C-Reactive Protein Qnt Crqnt CRP 1.8 mg/dl 02/24/2016 Cbc With Differential Ord2 WBC 10.59 K/ul 02/24/2016 Cbc With Differential Ord2 RBC 5.13 M/ul 02/24/2016 Cbc With Differential Ord2 HGB 15.6 g/dl 02/24/2016 Cbc With Differential Ord2 Neut% 48.7 % 02/24/2016 Cbc With Differential Ord2 HCT 47.2 % 02/24/2016 Cbc With Differential Ord2 Lymph% 42.8 % 02/24/2016 Cbc With Differential Ord2 MCV 92.0 fl 02/24/2016 Cbc With Differential Ord2 [place]% 6.8 % 02/24/2016 Cbc With Differential Ord2 MCH 30.4 pg 02/24/2016 Cbc With Differential Ord2 Eos% 1.4 % 02/24/2016 Cbc With Differential Ord2 MCHC 33.1 pg 02/24/2016 Cbc With Differential Ord2 PLT 361 K/ul 02/24/2016 Cbc With Differential Ord2 Baso% 0.3 % 02/24/2016 Cbc With Differential Ord2 Neut ABS# 5.16 K/ul 02/24/2016 Cbc With Differential Ord2 RDW 13.6 % 02/24/2016 Cbc With Differential Ord2 Lymph ABS# 4.53 K/ul 02/24/2016 Cbc With Differential Ord2 [place] ABS# 0.7 K/ul 02/24/2016 Cbc With Differential Ord2 Eos ABS# 0.2 K/ul 02/24/2016 Cbc With Differential Ord2 Baso ABS# 0.0 K/ul 02/24/2016 Cbc With Differential Ord2 WBC 7.04 K/ul 10/31/2015 Cbc With Differential Ord2 RBC 4.76 M/ul 10/31/2015 Cbc With Differential Ord2 HGB 14.9 g/dl 10/31/2015 Cbc With Differential Ord2 HCT 43.4 % 10/31/2015 Cbc With Differential Ord2 Neut% 41.7 % 10/31/2015 Cbc With Differential Ord2 MCV 91.2 fl 10/31/2015 Cbc With Differential Ord2 Lymph% 48.4 % 10/31/2015 Cbc With Differential Ord2 [place]% 7.2 % 10/31/2015 Cbc With Differential Ord2 [...] 3.41 K/ul 10/31/2015 Cbc With Differential Ord2 [place] ABS# 0.5 K/ul 10/31/2015 Cbc With Differential Ord2 Eos ABS# 0.2 K/ul 10/31/2015 Cbc With Differential Ord2 Baso ABS# 0.0 K/ul 10/31/2015 Cbc With Differential Ord2 New Analyzer Notice Please note new ref ranges starting 10-15-2015 due to implemntation of new five part differential hematolgy analyzer. 10/31/2015 Vitamin D 25 Oh [id number] VITAMIN D, 25 HYDROXY 33.87 ng/mL Tsh Ord6 hTSH II 4.37 uIU/mL 10/31/2015 Lipid Ord30 CHOL 168 mg/dL 10/31/2015 Lipid Ord30 HDL 30.0 mg/dl 10/31/2015 Lipid Ord30 TRIG 293 mg/dL 10/31/2015 Lipid Ord30 LDL 79 mg/dL 10/31/2015 Lipid Ord30 C/HDL 5.6 Ratio 10/31/2015 B12 Cee797 B12 327.00 pg/ml 10/31/2015 Comp Metabolic Tdx125 NA 140 mEq/L 10/31/2015 Comp Metabolic Bcv988 K 4.0 mEq/L 10/31/2015 Comp Metabolic Nmo237 CL 103 mEq/L 10/31/2015 Comp Metabolic Bjv911 CO2 29.0 mEq/L 10/31/2015 Comp Metabolic Yrr831 ANION GAP 12 10/31/2015 Comp Metabolic Pzo386 GLUCOSE 104 mg/dL 10/31/2015 Comp Metabolic Myi747 Creat 0.9 mg/dL 10/31/2015 Comp Metabolic Dvl813 eGFR 62 ml/min/1.73m2 10/31/2015 Comp Metabolic Ntv636 BUN 13 mg/dL 10/31/2015 Comp Metabolic Ebt827 B/C Ratio 13.8 Ratio 10/31/2015 Comp Metabolic Ego237 CALCIUM 9.5 mg/dL 10/31/2015 Comp Metabolic Stl057 ALK PHOS 102 U/L 10/31/2015 Comp Metabolic Xrx100 AST(SGOT) 19 U/L 10/31/2015 Comp Metabolic Kcx944 ALT(SGPT) 17 U/L 10/31/2015 Comp Metabolic Gxl795 BILI T 0.3 mg/dL 10/31/2015 Comp Metabolic Agf710 ALBUMIN 4.1 g/dL 10/31/2015 Comp Metabolic Chv376 TPRO 6.8 g/dL 10/31/2015 Comp Metabolic Ipq596 GLOB 2.7 g/dL 10/31/2015 Comp Metabolic Ajj022 A/G Ratio 1.5 Ratio 10/31/2015 Comp Metabolic Ckq349 Osmo 280 mOsmo 10/31/2015 GFR CALC 5451014 GFR AA 59.0L ML/MIN 02/28/2015 GFR CALC 8873537 GFR NON-AA 49.0L ML/MIN 02/28/2015 CHEM 14 20280406 AST 19 U/L 02/28/2015 CHEM 14 20280406 ALT 15 IU/L 02/28/2015 CHEM 14 20280406 BUN 16 MG/DL 02/28/2015 CHEM 14 20280406 ALBUMIN 4.7 GM/DL 02/28/2015 CHEM 14 20280406 CHLORIDE 99 MMOL/L 02/28/2015 CHEM 14 20280406 BILI TOT 0.5 MG/DL 02/28/2015 CHEM 14 20280406 ALK PHOS 111 U/L 02/28/2015 CHEM 14 3647990 SODIUM 135 MMOL/L 02/28/2015 CHEM 14 4604198 CREATININE 1.10 MG/DL 02/28/2015 CHEM 14 4335667 CALCIUM 10.1 MG/DL 02/28/2015 CHEM 14 2691091 POTASSIUM 4.0 MMOL/L 02/28/2015 CHEM 14 6553046 PROT TOT 8.2 GM/DL 02/28/2015 CHEM 14 1193587 GLUCOSE 123 MG/DL 02/28/2015 CHEM 14 7837972 BICARB 29 MMOL/L 02/28/2015 CHEM 14 6171021 ANION GAP 7 MEQ/L 02/28/2015 LIPID GRP 7483834 HDL TEST 38 MG/DL 02/28/2015 LIPID GRP 0354839 TRIG 312 MG/DL 02/28/2015 LIPID GRP TEST LDL 148 MG/DL 02/28/2015 LIPID GRP 4660055 CHOL 248 MG/DL 02/28/2015 LIPID GRP 6037846 RCHOL/HDL 6.53 RATIO 02/28/2015 LIPID GRP NON-HDL CH 210 MG/DL 02/28/2015 LIPID GRP HDL TEST 34 MG/DL 11/11/2014 LIPID GRP 7251972 TRIG 173 MG/DL 11/11/2014 LIPID GRP 1897547 TEST LDL 140 MG/DL 11/11/2014 LIPID GRP 3103891 CHOL 209 MG/DL 11/11/2014 LIPID GRP 1704694 RCHOL/HDL 6.15 RATIO 11/11/2014 LIPID GRP 1689359 NON-HDL CH 175 MG/DL 11/11/2014 CBC 2345020 WBC 6.6 10e9/L 11/11/2014 CBC 0354675 RBC 4.89 10e12/L 11/11/2014 CBC 9940752 HGB 15.2 g/dL 11/11/2014 CBC 2232432 HCT DET 45.2 % 11/11/2014 CBC 0897666 MCV 92.4 fL 11/11/2014 CBC 1026329 MCH 31.1 pg 11/11/2014 CBC 4421167 MCHC 33.6 g/dL 11/11/2014 CBC 6609148 PLT 275 10e9/L 11/11/2014 CBC 7181395 MPV 10.1 fL 11/11/2014 CBC 5916746 RC % 43.7 % 11/11/2014 CBC 8724238 LY % 46.5 % 11/11/2014 CBC 1587399 MON % 7.2 % 11/11/2014 CBC 2392527 EOS % 2.0 % 11/11/2014 CBC 6259398 BASO % 0.6 % 11/11/2014 CBC 1968115 RDW 13.3 % 11/11/2014 CBC 6272248 ABS RC 2.88 10e9/L 11/11/2014 CBC 6655485 ABS LYMPH 3.07 10e9/L 11/11/2014 CBC 7772585 ABS MONO 0.48 10e9/L 11/11/2014 CBC 0362450 ABS EOS 0.13 10e9/L 11/11/2014 CBC 9138395 ABS BASO 0.04 10e9/L 11/11/2014 CBC 2140993 RDW-SD 44.1 fL 11/11/2014 CHEM 14 9507530 AST 20 U/L 11/11/2014 CHEM 14 7434345 ALT 14 IU/L 11/11/2014 CHEM 14 1809825 BUN 13 MG/DL 11/11/2014 CHEM 14 0556620 ALBUMIN 4.4 GM/DL 11/11/2014 CHEM 14 8430260 CHLORIDE 104 MMOL/L 11/11/2014 CHEM 14 8336990 BILI TOT 0.3 MG/DL 11/11/2014 CHEM 14 6661200 ALK PHOS 113 U/L 11/11/2014 CHEM 14 9877720 SODIUM 140 MMOL/L 11/11/2014 CHEM 14 2169030 CREATININE 0.98 MG/DL 11/11/2014 CHEM 14 9393641 CALCIUM 9.6 MG/DL 11/11/2014 CHEM 14 3588568 POTASSIUM 3.9 MMOL/L 11/11/2014 CHEM 14 1478934 PROT TOT 7.5 GM/DL 11/11/2014 CHEM 14 4666864 GLUCOSE 102 MG/DL 11/11/2014 CHEM 14 3594313 BICARB 28 MMOL/L 11/11/2014 CHEM 14 0367331 ANION GAP 8 MEQ/L 11/11/2014 GFR CALC 1658618 GFR AA >60 ML/MIN 11/11/2014 GFR CALC 7049687 GFR NON-AA 55.0L ML/MIN 11/11/2014 TSH 4981364 TSH 2.055 uIU/ML 11/11/2014 TSH 7928262 TSH 2.956 uIU/ML 12/04/2013 A1C HPLC 0237800 A1C HPLC 44211-9 5.4 % 12/04/2013 GFR CALC 8196612 GFR AA >60 ML/MIN 12/04/2013 GFR CALC 6444301 GFR NON-AA 57.0L ML/MIN 12/04/2013 CBC 0715575 WBC 7.2 10e9/L 12/04/2013 CBC 8922537 RBC 4.98 10e12/L 12/04/2013 CBC 6045879 HGB 15.8 g/dL 12/04/2013 CBC 9606891 HCT DET 46.0 % 12/04/2013 CBC 0938147 MCV 92.4 fL 12/04/2013 CBC 0921828 MCH 31.7 pg 12/04/2013 CBC 5056694 MCHC 34.3 g/dL 12/04/2013 CBC 0745668 PLT 266 10e9/L 12/04/2013 CBC 1371958 MPV 9.9 fL 12/04/2013 CBC 9538136 RC % 49.1 % 12/04/2013 CBC 6421338 LY % 41.9 % 12/04/2013 CBC 6473400 MON % 6.5 % 12/04/2013 CBC 3966424 EOS % 1.8 % 12/04/2013 CBC 5865387 BASO % 0.7 % 12/04/2013 CBC 5751429 RDW 13.3 % 12/04/2013 CBC 9631908 ABS RC 3.54 10e9/L 12/04/2013 CBC 8348559 ABS LYMPH 3.02 10e9/L 12/04/2013 CBC 9902266 ABS MONO 0.47 10e9/L 12/04/2013 CBC 3687720 ABS EOS 0.13 10e9/L 12/04/2013 CBC 8047591 ABS BASO 0.05 10e9/L 12/04/2013 CBC 8279414 RDW-SD 44.0 fL 12/04/2013 VIT D TOTL 5101733 VIT D TOTL 29 NG/ML 12/04/2013 LIPID GRP HDL TEST 33 MG/DL 12/04/2013 LIPID GRP TRIG 291 MG/DL 12/04/2013 LIPID GRP TEST LDL 124 MG/DL 12/04/2013 LIPID GRP CHOL 215 MG/DL 12/04/2013 LIPID GRP RCHOL/HDL 6.52 RATIO 12/04/2013 CHEM 14 1323098 AST 20 U/L 12/04/2013 CHEM 14 0546201 ALT 18 IU/L 12/04/2013 CHEM 14 6431454 BUN 13 MG/DL 12/04/2013 CHEM 14 7929435 ALBUMIN 4.5 GM/DL 12/04/2013 CHEM 14 4522755 CHLORIDE 104 MMOL/L 12/04/2013 CHEM 14 8833738 BILI TOT 0.3 MG/DL 12/04/2013 CHEM 14 2470161 ALK PHOS 92 U/L 12/04/2013 CHEM 14 7630980 SODIUM 140 MMOL/L 12/04/2013 CHEM 14 8170759 CREATININE 0.96 MG/DL 12/04/2013 CHEM 14 9055110 CALCIUM 9.8 MG/DL 12/04/2013 CHEM 14 2786850 POTASSIUM 4.2 MMOL/L 12/04/2013 CHEM 14 0469027 PROT TOT 7.1 GM/DL 12/04/2013 CHEM 14 8705667 GLUCOSE 111 MG/DL 12/04/2013 CHEM 14 5000288 BICARB 27 MMOL/L 12/04/2013 CHEM 14 3876249 ANION GAP 9 MEQ/L 12/04/2013 CHEM 14 8701779 AST 19 U/L 07/02/2013 CHEM 14 2628901 ALT 20 IU/L 07/02/2013 CHEM 14 2104796 BUN 17 MG/DL 07/02/2013 CHEM 14 4338896 ALBUMIN 4.9 GM/DL 07/02/2013 CHEM 14 1652992 CHLORIDE 103 MMOL/L 07/02/2013 CHEM 14 8331881 BILI TOT 0.3 MG/DL 07/02/2013 CHEM 14 8707560 ALK PHOS 108 U/L 07/02/2013 CHEM 14 5394446 SODIUM 139 MMOL/L 07/02/2013 CHEM 14 5556924 CREATININE 1.01 MG/DL 07/02/2013 CHEM 14 7483606 CALCIUM 10.1 MG/DL 07/02/2013 CHEM 14 0958030 POTASSIUM 4.2 MMOL/L 07/02/2013 CHEM 14 7392559 PROT TOT 7.5 GM/DL 07/02/2013 CHEM 14 6733959 GLUCOSE 94 MG/DL 07/02/2013 CHEM 14 8723592 BICARB 29 MMOL/L 07/02/2013 CHEM 14 1406733 ANION GAP 7 MEQ/L 07/02/2013 CBC 0707431 WBC 11.1 10e9/L 07/02/2013 CBC 5132912 RBC 5.08 10e12/L 07/02/2013 CBC 5036946 HGB 16.1 g/dL 07/02/2013 CBC 6810023 HCT DET 46.6 % 07/02/2013 CBC 4033114 MCV 91.7 fL 07/02/2013 CBC 8309704 MCH 31.7 pg 07/02/2013 CBC 5109060 MCHC 34.5 g/dL 07/02/2013 CBC 1533898 PLT 287 10e9/L 07/02/2013 CBC 4145941 MPV 9.6 fL 07/02/2013 CBC 2056237 RC % 56.1 % 07/02/2013 CBC 0288605 LY % 35.3 % 07/02/2013 CBC 9483314 MON % 7.1 % 07/02/2013 CBC 9841155 EOS % 1.2 % 07/02/2013 CBC 4579788 BASO % 0.3 % 07/02/2013 CBC 7016442 RDW 14.1 % 07/02/2013 CBC 8392669 ABS RC 6.23 10e9/L 07/02/2013 CBC 1256410 ABS LYMPH 3.92 10e9/L 07/02/2013 CBC 5847901 ABS MONO 0.79 10e9/L 07/02/2013 CBC 7691381 ABS EOS 0.13 10e9/L 07/02/2013 CBC 2352267 ABS BASO 0.03 10e9/L 07/02/2013 CBC 9360485 RDW-SD 46.1 fL 07/02/2013 VIT B 12 8186093 VIT B 12 672 PG/ML 07/02/2013 GFR CALC 3338945 GFR AA >60 ML/MIN 07/02/2013 GFR CALC 4542949 GFR NON-AA 54.0L ML/MIN 07/02/2013 FREE T4 8526751 FREE T4 1.09 NG/DL 07/02/2013 TSH 0738469 TSH 1.599 uIU/ML 07/02/2013 VIT D TOTL 9636359 VIT D TOTL 29 NG/ML 07/02/2013 A1C HPLC 0973819 A1C HPLC 63904-9 5.9 % 12/06/2012 LIPID GRP HDL TEST 28 MG/DL 12/05/2012 LIPID GRP TRIG 237 MG/DL 12/05/2012 LIPID GRP TEST LDL 98 MG/DL 12/05/2012 LIPID GRP CHOL 173 MG/DL 12/05/2012 LIPID GRP RCHOL/HDL 6.18 RATIO 12/05/2012 VIT D TOTL 6814070 VIT D TOTL 16 NG/ML 12/05/2012 CBC 8340605 WBC 8.0 10e9/L 12/05/2012 CBC 4356006 RBC 4.83 10e12/L 12/05/2012 CBC 1541246 HGB 15.1 g/dL 12/05/2012 CBC 6646541 HCT DET 44.0 % 12/05/2012 CBC 2653375 MCV 91.1 fL 12/05/2012 CBC 6428388 MCH 31.3 pg 12/05/2012 CBC 0685572 MCHC 34.3 g/dL 12/05/2012 CBC 3391786 PLT 260 10e9/L 12/05/2012 CBC 8401912 MPV 10.0 fL 12/05/2012 CBC 2122491 RC % 41.9 % 12/05/2012 CBC 7750828 LY % 48.1 % 12/05/2012 CBC 1158764 MON % 7.6 % 12/05/2012 CBC 5278388 EOS % 1.9 % 12/05/2012 CBC 3033654 BASO % 0.5 % 12/05/2012 CBC 6802369 RDW 13.4 % 12/05/2012 CBC 1374651 ABS RC 3.35 10e9/L 12/05/2012 CBC 6378613 ABS LYMPH 3.85 10e9/L 12/05/2012 CBC 8192336 ABS MONO 0.61 10e9/L 12/05/2012 CBC 3197485 ABS EOS 0.15 10e9/L 12/05/2012 CBC 2191120 ABS BASO 0.04 10e9/L 12/05/2012 CBC 0759861 RDW-SD 43.4 fL 12/05/2012 CHEM 14 9548139 AST 21 U/L 12/05/2012 CHEM 14 4841549 ALT 24 IU/L 12/05/2012 CHEM 14 7960759 BUN 14 MG/DL 12/05/2012 CHEM 14 6999233 ALBUMIN 4.3 GM/DL 12/05/2012 CHEM 14 4302668 CHLORIDE 106 MMOL/L 12/05/2012 CHEM 14 5054885 BILI TOT 0.4 MG/DL 12/05/2012 CHEM 14 2289037 ALK PHOS 102 U/L 12/05/2012 CHEM 14 3316427 SODIUM 141 MMOL/L 12/05/2012 CHEM 14 8450532 CREATININE 0.96 MG/DL 12/05/2012 CHEM 14 1013081 CALCIUM 9.8 MG/DL 12/05/2012 CHEM 14 0980929 POTASSIUM 4.1 MMOL/L 12/05/2012 CHEM 14 3836634 PROT TOT 6.8 GM/DL 12/05/2012 CHEM 14 5987094 GLUCOSE 107 MG/DL 12/05/2012 CHEM 14 4781331 BICARB 28 MMOL/L 12/05/2012 CHEM 14 6083141 ANION GAP 7 MEQ/L 12/05/2012 FERRITIN 9620422 FERRITIN 151 NG/ML 12/05/2012 MAGNESIUM 5068272 MAGNESIUM 1.6 MEQ/L 12/05/2012 CRP 3413386 CRP 0.6 MG/DL 12/05/2012 FOLIC ACID 7361287 FOLIC ACID 12.2 NG/ML 12/05/2012 VIT B 12 3352708 VIT B 12 389 PG/ML 12/05/2012 TSH 0043138 TSH 3.097 uIU/ML 12/05/2012 GFR CALC 1989368 GFR AA >60 ML/MIN 12/05/2012 GFR CALC 4725815 GFR NON-AA 57.0L ML/MIN 12/05/2012 %SAT/TIBC 8322305 TIBC 305 UG/DL 12/05/2012 %SAT/TIBC 2759434 % SATURAT 25 % 12/05/2012 %SAT/TIBC 5942718 UIBC 229 MCG/DL 12/05/2012 ESR 8528796 ESR 14 MM/HR 12/05/2012 IRON TEST [id number] IRON TEST 76 UG/DL 12/05/2012 UA 66261 Specific [place] 1.030 DateTime(Free Text in ) UA 15120 PH 5.0 DateTime(Free Text in ) UA 20532 GLUCOSE neg DateTime(Free Text in ) UA 09337 Protein neg DateTime(Free Text in [facility]) UA 45652 Blood neg DateTime(Free Text in [facility]) UA 31734 Bilirubin neg DateTime(Free Text in [facility]) UA 82757 Ketones neg DateTime(Free Text in [facility]) UA 91691 Urobilinogen neg DateTime(Free Text in ) UA 43811 Nitrite neg DateTime(Free Text in ) UA 17616 Leukocytes trace DateTime(Free Text in ) Review of Systems System Result Effective Dates Constitutional No recent illness 2017 Constitutional No chills 07/06/2018 Constitutional No fever 07/06/2018 Eyes No eye erythema 07/06/2018 Ears/Nose/Throat/Neck No nasal discharge 07/06/2018 Cardiovascular No chest pain/pressure 01/2018 Cardiovascular No dyspnea 07/06/2018 Respiratory No cough 07/06/2018 Respiratory No dyspnea 07/06/2018 Musculoskeletal joint complaint 2017 Neurologic No alteration of consciousness 07/06/2018 Neurologic No mental status change 2017 Constitutional fatigue 07/06/2018 Constitutional diaphoresis 07/06/2018 Dermatologic rash 07/06/2018 Endocrine flushing 07/06/2018 Endocrine hair loss 07/06/2018 Endocrine dry or coarse skin 07/06/2018 Endocrine cold sensitivity 07/06/2018 Ears/Nose/Throat/Neck dysphagia 2017 Ears/Nose/Throat/Neck hoarseness 2017 Constitutional No recent illness 2017 Constitutional No chills 06/07/2018 Constitutional No fever 06/07/2018 Eyes No eye erythema 06/07/2018 Ears/Nose/Throat/Neck No nasal discharge 06/07/2018 Cardiovascular No chest pain/pressure 01/2018 Cardiovascular No dyspnea 06/07/2018 Respiratory No cough 06/07/2018 Respiratory No dyspnea 06/07/2018 Musculoskeletal joint complaint 2017 Neurologic No alteration of consciousness 06/07/2018 Neurologic No mental status change 2017 Constitutional No recent illness 2017 Constitutional No chills 04/28/2018 Constitutional No fever 04/28/2018 Eyes No eye erythema 04/28/2018 Ears/Nose/Throat/Neck No nasal discharge 04/28/2018 Cardiovascular No chest pain/pressure Cardiovascular No dyspnea 04/28/2018 Respiratory No cough 04/28/2018 Respiratory No dyspnea 04/28/2018 Musculoskeletal joint complaint 2017 Neurologic No alteration of consciousness 04/28/2018 Neurologic No mental status change 2017 Constitutional No recent illness 2017 Constitutional No chills 04/03/2018 Constitutional No diaphoresis 04/03/2018 Constitutional No fever 04/03/2018 Eyes No eye erythema 04/03/2018 Ears/Nose/Throat/Neck No nasal discharge 04/03/2018 Cardiovascular No chest pain/pressure 11/2017 Respiratory No cough 04/03/2018 Respiratory No chest congestion 2017 Gastrointestinal No abdominal pain 2017 Musculoskeletal joint complaint 2017 Dermatologic rash 04/03/2018 Neurologic No alteration of consciousness 04/03/2018 Neurologic No mental status change 2017 Constitutional No recent illness 2017 Constitutional No [...] Result Effective Dates Notes Full Exam - Orthopedics Constitutional general appearance Overall: well nourished 07/06/2018 None Full Exam - Orthopedics Constitutional general appearance Overall: well developed 07/06/2018 None Full Exam - Orthopedics Constitutional general appearance Overall: in no acute distress 07/06/2018 None Full Exam - Orthopedics Eyes conjunctiva/ eyelids Overall: conjunctiva clear 07/06/2018 None Full Exam - Orthopedics Eyes conjunctiva/ eyelids Overall: eyelids normal 07/06/2018 None Full Exam - Orthopedics Ears/Nose/Throat lips/teeth/gingiva Overall: benign lips 07/06/2018 None Full Exam - Orthopedics Ears/Nose/Throat oral cavity/pharynx/larynx Overall: oral mucosa clear 07/06/2018 None Full Exam - Orthopedics Respiratory respiratory effort/rhythm Overall: no retractions 07/06/2018 None Full Exam - Orthopedics Respiratory respiratory effort/rhythm Overall: normal rate 07/06/2018 None Full Exam - Orthopedics MS: head/neck insp & palp - H/N Overall: head atraumatic 07/06/2018 None Full Exam - Orthopedics MS: spine/rib/pelvis insp & palp - S/R/P Sacroiliac palpation: right sacroiliac joint tenderness 07/06/2018 None Full Exam - Orthopedics MS: spine/rib/pelvis insp & palp - S/R/P Hip palpation: tender at the proximal tip of the right trochanter 2017 None Full Exam - Orthopedics Psychiatric orientation/consciousness Overall: oriented to person, place and time 07/06/2018 None Full Exam - Orthopedics Psychiatric mood and affect Overall: normal mood and affect 07/06/2018 None Full Exam - Orthopedics Psychiatric appearance Overall: well-groomed, good eye contact 07/06/2018 None Full Exam - Orthopedics Neck thyroid Overall: nontender 2017 None Full Exam - Orthopedics Constitutional general appearance Overall: well nourished 06/07/2018 None Full Exam - Orthopedics Constitutional general appearance Overall: well developed 06/07/2018 None Full Exam - Orthopedics Constitutional general appearance Overall: in no acute distress 06/07/2018 None Full Exam - Orthopedics Eyes conjunctiva/ eyelids Overall: conjunctiva clear 06/07/2018 None Full Exam - Orthopedics Eyes conjunctiva/ eyelids Overall: eyelids normal 06/07/2018 None Full Exam - Orthopedics Ears/Nose/Throat lips/teeth/gingiva Overall: benign lips 06/07/2018 None Full Exam - Orthopedics Ears/Nose/Throat oral cavity/pharynx/larynx Overall: oral mucosa clear 06/07/2018 None Full Exam - Orthopedics Respiratory respiratory effort/rhythm Overall: no retractions 06/07/2018 None Full Exam - Orthopedics Respiratory respiratory effort/rhythm Overall: normal rate 06/07/2018 None Full Exam - Orthopedics MS: head/neck insp & palp - H/N Overall: head atraumatic 06/07/2018 None Full Exam - Orthopedics MS: spine/rib/pelvis insp & palp - S/R/P Hip palpation: tender at the proximal tip of the right trochanter 2017 None Full Exam - Orthopedics Psychiatric orientation/consciousness Overall: oriented to person, place and time 06/07/2018 None Full Exam - Orthopedics Psychiatric mood and affect Overall: normal mood and affect 06/07/2018 None Full Exam - Orthopedics Psychiatric appearance Overall: well-groomed, good eye contact 06/07/2018 None Full Exam - Orthopedics MS: spine/rib/pelvis insp & palp - S/R/P Sacroiliac palpation: right sacroiliac joint tenderness 06/07/2018 None Full Exam - Orthopedics Constitutional general appearance Overall: well nourished 04/28/2018 None Full Exam - Orthopedics Constitutional general appearance Overall: well developed 04/28/2018 None Full Exam - Orthopedics Constitutional general appearance Overall: in no acute distress 04/28/2018 None Full Exam - Orthopedics Eyes conjunctiva/ eyelids Overall: conjunctiva clear 04/28/2018 None Full Exam - Orthopedics Eyes conjunctiva/ eyelids Overall: eyelids normal 04/28/2018 None Full Exam - Orthopedics Ears/Nose/Throat lips/teeth/gingiva Overall: benign lips 04/28/2018 None Full Exam - Orthopedics Ears/Nose/Throat oral cavity/pharynx/larynx Overall: oral mucosa clear 04/28/2018 None Full Exam - Orthopedics Respiratory respiratory effort/rhythm Overall: no retractions 04/28/2018 None Full Exam - Orthopedics Respiratory respiratory effort/rhythm Overall: normal rate 04/28/2018 None Full Exam - Orthopedics Psychiatric orientation/consciousness Overall: oriented to person, place and time 04/28/2018 None Full Exam - Orthopedics Psychiatric mood and affect Overall: normal mood and affect 04/28/2018 None Full Exam - Orthopedics Psychiatric appearance Overall: well-groomed, good eye contact 04/28/2018 None Full Exam - Orthopedics MS: head/neck insp & palp - H/N Overall: head atraumatic 04/28/2018 None Full Exam - Orthopedics MS: spine/rib/pelvis insp & palp - S/R/P Hip palpation: tender at the proximal tip of the right trochanter 2017 None Full Exam - General 1994 Constitutional general appearance Overall: well developed 04/03/2018 None Full Exam - General 1994 Constitutional general appearance Overall: in no acute distress 04/03/2018 None Full Exam - General 1994 Constitutional general appearance Overall: well nourished 04/03/2018 None Full Exam - General 1995 Eyes conjunctiva /eyelids Overall: eyelids normal 04/03/2018 None Full Exam - General 1995 Eyes conjunctiva /eyelids Overall: cornea clear 04/03/2018 None Full Exam - General 1994 Eyes conjunctiva /eyelids Overall: conjunctiva clear 04/03/2018 None Full Exam - General 1995 Ears/Nose/Throat lips/teeth/gingiva Overall: benign lips 04/03/2018 None Full Exam - General 1994 Ears/Nose/Throat oral cavity/pharynx/larynx Overall: oral mucosa clear 04/03/2018 None Full Exam - General 1994 Respiratory respiratory effort/rhythm Overall: no retractions 04/03/2018 None Full Exam - General 1994 Respiratory respiratory effort/rhythm Overall: normal rate 04/03/2018 None Full Exam - General 1994 Respiratory auscultation Overall: breath sounds clear bilaterally 04/03/2018 None Full Exam - General 1994 Cardiovascular auscultation of heart Overall: normal heart sounds 04/03/2018 None Full Exam - General 1994 Cardiovascular auscultation of heart Overall: regular rate 04/03/2018 None Full Exam - General 1994 Musculoskeletal head and neck Overall: head atraumatic 04/03/2018 None Full Exam - General 1994 Musculoskeletal gait and station Overall: normal station 04/03/2018 None Full Exam - General 1994 Musculoskeletal gait and station Overall: normal gait 04/03/2018 None Full Exam - General 1994 Cardiovascular extremities Edema present: pitting 04/03/2018 None Full Exam - General 1994 Cardiovascular extremities Edema present: severity 1+ - 4 +: 1+ 04/03/2018 None Full Exam - General 1994 Cardiovascular extremities Edema present: unilateral 04/03/2018 None Full Exam - General 1994 Cardiovascular extremities Edema present: to leg 04/03/2018 left Full Exam - General 1994 Integument inspection of skin Location: left arm 04/03/2018 None Full Exam - General 1994 Integument inspection of skin Location: right arm 04/03/2018 None Full Exam - General 1994 Integument inspection of skin Rash/Lesions: patch 04/03/2018 None Full Exam - General 1994 Integument inspection of skin Pigmentation: erythematous 04/03/2018 None Full Exam - General 1994 Integument inspection of skin Consistency: thick 04/03/2018 None Full Exam - General 1994 Integument inspection of skin Dermatitis: scaling 04/03/2018 None Full Exam - General 1994 Neurologic cranial nerves Overall: crainial nerves 2 - 12 grossly intact 04/03/2018 None Full Exam - General 1994 Psychiatric orientation/consciousness Overall: oriented to person, place and time 04/03/2018 None Full Exam - General 1994 Psychiatric mood and affect Overall: normal mood and affect 04/03/2018 None Full Exam - General 1994 Psychiatric appearance Overall: well-groomed, good eye contact 04/03/2018 None Full Exam - General 1994 Constitutional [...] dentition 11/11/2014 None Full Exam - General 1995 Ears/Nose/Throat oral cavity/pharynx/larynx Overall: oral mucosa clear 11/11/2014 None Full Exam - General 1995 Ears/Nose/Throat oral cavity/pharynx/larynx Overall: oropharyngeal mucosa clear 11/11/2014 None Full Exam - General 1995 Ears/Nose/Throat oral cavity/pharynx/larynx Overall: hypopharynx benign 11/11/2014 [...] General 1994 Ears/Nose/Throat lips/teeth/gingiva Overall: benign lips 07/16/2013 None Full Exam - General 1995 Ears/Nose/Throat lips/teeth/gingiva Overall: normal dentition 07/16/2013 None Full Exam - General 1995 Ears/Nose/Throat oral cavity/pharynx/larynx Overall: hypopharynx benign 07/16/2013 None Full Exam - General 1994 Ears/Nose/Throat oral cavity/pharynx/larynx Overall: no masses 07/16/2013 None Full Exam - General 1994 [...] tenderness 07/16/2013 None Full Exam - General 1995 Abdomen [...] developed 07/02/2013 None Full Exam - General 1994 Constitutional general appearance Overall: in no acute distress 07/02/2013 None Full Exam - General 1994 Constitutional general appearance Overall: well nourished 07/02/2013 None Full Exam - General 1994 Eyes conjunctiva /eyelids Overall: conjunctiva clear 07/02/2013 None Full Exam - General 1994 Eyes conjunctiva /eyelids Overall: cornea clear 07/02/2013 None Full Exam - General 1994 Eyes conjunctiva /eyelids Overall: eyelids normal 07/02/2013 None Full Exam - General 1994 Eyes pupils and irises Overall: pupils equal, round, reactive to light and accomodation 07/02/2013 None Full Exam - General 1994 Ears/Nose/Throat otoscopic exam Overall: external auditory canals clear 07/02/2013 None Full Exam - General 1995 Ears/Nose/Throat otoscopic exam Overall: tympanic membranes clear 07/02/2013 None Full Exam - General 1994 Ears/Nose/Throat oral cavity/pharynx/larynx Overall: oral mucosa clear 07/02/2013 None Full Exam - General 1995 Ears/Nose/Throat oral cavity/pharynx/larynx Overall: oropharyngeal mucosa clear 07/02/2013 None Full Exam - General 1995 Ears/Nose/Throat oral cavity/pharynx/larynx Overall: no masses 07/02/2013 None Full Exam - General 1994 Respiratory auscultation Overall: breath sounds clear bilaterally 07/02/2013 None Full Exam - General 1995 Respiratory respiratory effort/rhythm Overall: no retractions 07/02/2013 [...] tenderness 07/02/2013 None Full Exam - General 1995 Abdomen [...] tenderness 06/18/2013 None Full Exam - General 1995 Abdomen [...] accomodation 06/18/2013 None Full Exam - General 1994 [...] 1994 Ears/Nose/Throat oral cavity/pharynx/larynx Overall: no masses 02/15/2013 [...] retractions 12/15/2012 None Full Exam - General 1994 Ears/Nose/Throat otoscopic exam Overall: tympanic membranes clear 12/15/2012 None Full Exam - General 1994 Ears/Nose/Throat otoscopic exam Overall: external auditory canals clear 12/15/2012 None Full Exam - General 1994 Ears/Nose/Throat oral cavity/pharynx/larynx Overall: oropharyngeal mucosa clear 12/15/2012 None Full Exam - General 1995 Ears/Nose/Throat oral cavity/pharynx/larynx Overall: no masses 12/15/2012 None Full Exam - General 1994 [...] developed 12/15/2012 None Full Exam - General 1995 Constitutional general appearance Overall: in no acute distress 12/15/2012 None Full Exam - General 1995 Ears/Nose/Throat oral cavity/pharynx/larynx Overall: no masses 11/30/2012 None Full Exam - General 1995 Respiratory auscultation Overall: breath sounds clear bilaterally 11/30/2012 None Full Exam - General 1995 Respiratory respiratory effort/rhythm Overall: no retractions 11/30/2012 None Full Exam - General 1995 Respiratory respiratory effort/rhythm Overall: normal rate 11/30/2012 None Full Exam - General 1995 Cardiovascular extremities Overall: no clubbing 11/30/2012 None Full Exam - General 1995 Cardiovascular auscultation of heart Overall: regular rate 11/30/2012 None Full Exam - General 1995 Cardiovascular auscultation of heart Overall: normal heart [...] 11/30/2012 None Full Exam - General 1995 Eyes conjunctiva /eyelids Overall: eyelids normal 11/30/2012 [...] CPT-4: J3301 12/12/2014 THER/PROPH/DIAG INJ SC/IM CPT-4: 35225 12/12/2014 FLU VACC 4 CECILIA 3 YRS PLUS IM SNOMED CT: [id number] CPT-4: 42912 07/03/2014 ADMIN INFLUENZA VIRUS VAC Assigned to/Lorraine White CPT-4: [id number] 07/03/2014 ROUTINE VENIPUNCTURE CPT-4: 30703 12/04/2013 TRIAMCINOLONE ACET INJ NOS CPT-4: J3301 12/04/2013 THER/PROPH/DIAG INJ SC/IM CPT-4: 81039 12/04/2013 ROUTINE VENIPUNCTURE CPT-4: 19150 07/02/2013 THER/PROPH/DIAG INJ SC/IM CPT-4: 01105 07/02/2013 PROMETHAZINE HCL INJECTION CPT-4: J2550 07/02/2013 PRESCRIP TRANSMIT VIA ERX SY CPT-4: G8553 07/02/2013 TRIAMCINOLONE ACET INJ NOS CPT-4: J3301 06/18/2013 THER/PROPH/DIAG INJ SC/IM CPT-4: 43925 06/18/2013 URINALYSIS NONAUTO W/O SCOPE CPT-4: 20119 06/18/2013 PRESCRIP TRANSMIT VIA ERX SY CPT-4: G8553 06/18/2013 VITAMIN B12 INJECTION CPT-4: J3420 02/15/2013 PRESCRIP TRANSMIT VIA ERX SY CPT-4: G8553 02/15/2013 ROUTINE VENIPUNCTURE CPT-4: 48072 12/05/2012 PRESCRIP TRANSMIT VIA ERX SY CPT-4: G8553 11/30/2012 Vital Signs Date Vital 07/06/2018 Blood Pressure 1: 140/78 Code : 8480-6 BMI: 29.3 Code : 13354-2 Heart Rate 1 : 71 bpm Height: 5'5" SpO2: 97% Weight: 176 lbs 06/07/2018 Blood Pressure 1: 134/64 Code : 8480-6 BMI: 29.3 Code : 75052-3 Heart Rate 1 : 96 bpm Height: 5'5" SpO2: 95% Weight: 176 lbs 04/28/2018 Blood Pressure 1: 128/74 Code : 8480-6 BMI: 29.8 Code : 61774-4 Heart Rate 1 : 70 bpm Height: 5'5" SpO2: 98% Weight: 179 lbs 04/03/2018 Blood Pressure 1: 130/72 Code : 8480-6 Heart Rate 1: 84 bpm Height: SpO2: 98% Weight: 10/18/2017 Blood Pressure 1: 134/84 Code : 8480-6 BMI: 29.0 Code : 65233-5 Heart Rate 1 : 71 bpm Height: 5'5" SpO2: 98% Weight: 174 lbs 08/31/2017 Blood Pressure 1: 134/76 Code : 8480-6 BMI: 29.5 Code : 34931-0 Heart Rate 1 : 78 bpm Height: 5'5" SpO2: 96% Weight: 177 lbs 06/21/2017 Blood Pressure 1: 136/82 Code : 8480-6 BMI: 29.6 Code : 99070-4 Heart Rate 1 : 76 bpm Height: 5'5" SpO2: 98% Weight: 178 lbs 06/14/2017 Blood Pressure 1: 132/74 Code : 8480-6 BMI: 29.0 Code : 33112-3 Heart Rate 1 : 71 bpm Height: 5'5" SpO2: 97% Weight: 174 lbs 05/13/2017 Blood Pressure 1: 122/80 Code : 8480-6 BMI: 29.6 Code : 84311-1 Heart Rate 1 : 88 bpm Height: 5'5" SpO2: 97% Temperature: 37.1 (C) / 98.7 (F) Weight: 178 lbs 11/30/2016 Blood Pressure 1: 136/70 Code : 8480-6 BMI: 31.6 Code : 13079-3 Heart Rate 1 : 74 bpm Height: 5'5" SpO2: 96% Weight: 190 lbs 11/16/2016 Blood Pressure 1: 124/76 Code : 8480-6 BMI: 32.1 Code : 75836-3 Heart Rate 1 : 94 bpm Height: 5'5" SpO2: 97% Weight: 193 lbs 06/10/2016 Blood Pressure 1: 128/86 Code : 8480-6 BMI: 30.3 Code : 12299-9 Heart Rate 1 : 88 bpm Height: 5'5" SpO2: 98% Weight: 182 lbs 04/13/2016 Blood Pressure 1: 102/56 Code : 8480-6 BMI: 30.5 Code : 39922-5 Heart Rate 1 : 63 bpm Height: 5'5" SpO2: 94% Weight: 183 lbs 03/22/2016 Blood Pressure 1: 138/78 Code : 8480-6 BMI: 30.5 Code : 95539-8 Heart Rate 1 : 63 bpm Height: 5'5" SpO2: 97% Weight: 183 lbs 03/02/2016 Blood Pressure 1: 122/72 Code : 8480-6 BMI: 30.8 Code : 87891-2 Heart Rate 1 : 71 bpm Height: 5'5" SpO2: 97% Weight: 185 lbs 02/23/2016 Blood Pressure 1: 146/86 Code : 8480-6 BMI: 30.3 Code : 23158-3 Heart Rate 1 : 100 bpm Height: 5'5" SpO2: 98% Weight: 182 lbs 01/09/2016 Blood Pressure 1: 138/74 Code : 8480-6 BMI: 31.6 Code : 49939-2 Heart Rate 1 : 83 bpm Height: 5'5" SpO2: 95% Weight: 190 lbs 12/09/2015 Blood Pressure 1: 140/70 Code : 8480-6 BMI: 30.5 Code : 68751-4 Heart Rate 1 : 73 bpm Height: 5'5" SpO2: 93% Weight: 183 lbs 11/14/2015 Blood Pressure 1: 174/84 Code : 8480-6 Blood Pressure 1: 156/84 Code: 8480-6 BMI: 31.6 Code: 97866-8 Heart Rate 1: 70 bpm Height: 5'5" SpO2: 97% Weight: 190 lbs 10/31/2015 Blood Pressure 1: 138/80 Code : 8480-6 BMI: 31.5 Code : 44550-5 Heart Rate 1 : 82 bpm Height: 5'5" SpO2: 98% Weight: 189 lbs 12/12/2014 Blood Pressure 1: 150/80 Code : 8480-6 BMI: 30.1 Code : 64132-8 Heart Rate 1 : 68 bpm Height: 5'5" Weight: 181 lbs 11/11/2014 Blood Pressure 1: 132/84 Code : 8480-6 BMI: 31.0 Code : 97420-2 Heart Rate 1 : 72 bpm Height: 5'5" Weight: 186 lbs 07/03/2014 Blood Pressure 1: 128/88 Code : 8480-6 BMI: 31.8 Code : 77384-3 Heart Rate 1 : 84 bpm Height: 5'5" SpO2: 96% Weight: 191 lbs 12/04/2013 Blood Pressure 1: 124/90 Code : 8480-6 BMI: 31.5 Code : 55071-7 Heart Rate 1 : 84 bpm Height: 5'5" Weight: 189 lbs 11/13/2013 Blood Pressure 1: 124/78 Code : 8480-6 BMI: 31.5 Code : 93461-8 Heart Rate 1 : 72 bpm Height: 5'5" Weight: 189 lbs 07/16/2013 Blood Pressure 1: 136/82 Code : 8480-6 BMI: 31.0 Code : 05142-6 Heart Rate 1 : 80 bpm Height: 5'5" Weight: 186 lbs 07/02/2013 Blood Pressure 1: 118/84 Code : 8480-6 BMI: 30.1 Code : 17972-3 Heart Rate 1 : 84 bpm Height: 5'5" SpO2: 98% Temperature: 36.3 (C) / 97.3 (F) Weight: 181 lbs 06/18/2013 Blood Pressure 1: 134/80 Code : 8480-6 BMI: 30.5 Code : 92782-6 Heart Rate 1 : 80 bpm Height: 5'5" Temperature: 36.1 (C) / 97.0 (F) Weight: 183 lbs 02/15/2013 Blood Pressure 1: 136/82 Code : 8480-6 BMI: 30.6 Code : 44880-6 Heart Rate 1 : 84 bpm Height: 5'5" Respiratory Rate: 16 bpm Weight: 184 lbs 12/15/2012 Blood Pressure 1: 140/78 Code : 8480-6 BMI: 31.5 Code : 55201-6 Heart Rate 1 : 68 bpm Height: 5'5" Weight: 189 lbs 11/30/2012 Blood Pressure 1: 132/70 Code : 8480-6 BMI: 31.7 Code : 90896-5 Heart Rate 1 : 84 bpm Height: 5'5" Respiratory Rate: 20 bpm Weight: 190 lbs 5 oz Functional Status No Functional Status data History of Present Illness Symptom Name Status Result Effective Date Notes low back and leg pain Radiating the right lateral thigh 07/06/2018 None low back and leg pain Quality constant 07/06/2018 None fatigue Frequency of Episodes daily 07/06/2018 None hip pain Location on the right 06/07/2018 None hip pain Quality numbness 06/07/2018 None hip pain Onset and Resolution sudden in onset 06/07/2018 None hip pain Onset of Symptom 2 weeks ago 06/07/2018 None low back and leg pain Location on the right 06/07/2018 None low back and leg pain Radiating the right buttock 06/07/2018 None low back and leg pain Radiating the right lateral calf 06/07/2018 None low back and leg pain Radiating the right lateral thigh 06/07/2018 None low back and leg pain Quality sharp pain 06/07/2018 None low back and leg pain Quality throbbing 06/07/2018 None low back and leg pain Quality burning sensation 06/07/2018 None low back and leg pain Quality intermittent 06/07/2018 None low back and leg pain Quality worsening 06/07/2018 None low back and leg pain Onset of Symptom _ months ago 06/07/2018 None hip pain Location on the right 04/28/2018 None hip pain Quality numbness 04/28/2018 None hip pain Onset and Resolution sudden in onset 04/28/2018 None hip pain Onset of Symptom 2 weeks ago 04/28/2018 None edema Onset and Resolution sudden in onset 04/03/2018 None edema Onset of Symptom 2 weeks ago 04/03/2018 None edema Limitation on Activities does not limit activities 04/03/2018 None edema Pertinent Findings Denies dyspnea 04/03/2018 None edema Pertinent Findings Denies dyspnea on exertion 04/03/2018 None edema Pertinent Findings Denies palpitations 04/03/2018 None edema Pertinent Findings Denies near syncope 04/03/2018 None anxiety Onset and Resolution ongoing 10/18/2017 None [...] Codes Date EST. PATIENT, LEVEL III Diagnosis: Pain in right leg[ICD10: M79.604] Diagnosis: Paresthesia of skin[ICD10: R20.2] Diagnosis: Other fatigue[ICD10: R53.83] Diagnosis: Dysphonia[ICD10: R49.0] Cydney Sheridan MD, [facility] CPT-4: 25001 07/06/2018 [id number] EST. PATIENT, LEVEL III Diagnosis: Low back pain[ICD10: M54.5] Diagnosis: Pain in right leg[ICD10: M79.604] Diagnosis: Paresthesia of skin[ICD10: R20.2] [facility] CPT -4: 01264 06/07/2018 52313 EST. PATIENT, LEVEL III Diagnosis: Trochanteric bursitis, right hip[ICD10: M70.61] Cydney Sheridan MD, [facility] CPT-4: 30412 04/28/2018 25512 EST. PATIENT, LEVEL III Diagnosis: Dizziness and giddiness[ICD10: R42] Diagnosis: Localized edema[ICD10: R60.0] Diagnosis: Other psoriasis[ICD10: L40.8] Cydney Sheridan MD, [facility] CPT-4 : 66986 04/03/2018 84527 EST. PATIENT, LEVEL III Diagnosis: Generalized anxiety disorder[ICD10: F41.1] Diagnosis: Major depressive disorder, single episode, moderate[ICD10: F32.1] Diagnosis: Other psoriasis[ICD10: L40.8] Diagnosis: Periapical abscess without sinus[ICD10: K04.7] Cydney Sheridan MD, [facility] CPT-4: 78715 10/18/2017 68263 EST. PATIENT, LEVEL III Diagnosis: Gastro-esophageal reflux disease without esophagitis[ICD10: K21.9] Diagnosis: Generalized anxiety disorder[ICD10: F41.1] Diagnosis: Major depressive disorder, single episode, moderate[ICD10: F32.1] Diagnosis: Other psoriasis[ICD10: L40.8] Cydney Sheridan MD, [facility] CPT-4 : 22521 08/31/2017 80454 EST. PATIENT, LEVEL III Diagnosis: Gastro-esophageal reflux disease without esophagitis[ICD10: K21.9] Diagnosis: Generalized anxiety disorder[ICD10: F41.1] Diagnosis: Major depressive disorder, single episode, moderate[ICD10: F32.1] Cydney Sheridan MD, [facility] CPT-4: 84760 06/21/2017 74813 EST. PATIENT, LEVEL IV Diagnosis: Other psoriasis[ICD10: L40.8] Diagnosis: Major depressive disorder, single episode, unspecified[ICD10: F32.9] Diagnosis: Other pruritus[ICD10: L29.8] Diagnosis: Gastro-esophageal reflux disease without esophagitis[ICD10: K21.9] Cydney Sheridan MD, [facility] CPT-4: 67404 06/14/2017 ([id number]) 08343 EST. PATIENT, LEVEL IV Diagnosis: Generalized abdominal pain[ICD10: R10.84] Diagnosis: Infectious gastroenteritis and colitis, unspecified[ICD10: A09] Diagnosis: Nausea[ICD10: R11.0] Ingrid Sheridan MD, [facility] CPT-4: 49590 05/13/2017 25877 EST. PATIENT, LEVEL III Diagnosis: Other psoriasis[ICD10: L40.8] Cydney Sheridan MD, [facility] CPT-4 : 99636 11/30/2016 59601 EST. PATIENT, LEVEL IV Diagnosis: Other psoriasis[ICD10: L40.8] Cydney Sheridan MD, [facility] CPT-4 : 07819 11/16/2016 ([id number]) 51106 EST. PATIENT, LEVEL III Diagnosis: Primary generalized (osteo)arthritis[ICD10: M15.0] Diagnosis: Other chronic pain[ICD10: G89.29] Ingrid Sheridan MD, [facility] CPT-4: 55559 06/10/2016 ([id number]) 80593 EST. PATIENT, LEVEL IV Diagnosis: Muscle weakness (generalized)[ICD10: M62.81] Diagnosis: Pain in right hand[ICD10: M79.641] Diagnosis: Pain in left hand[ICD10: M79.642] Diagnosis: Major depressive disorder, single episode, unspecified[ICD10: F32.9] Ingrid Sheridan MD, [facility] CPT-4: 61894 04/13/2016 ([id number]) 17489 EST. PATIENT, LEVEL III Diagnosis: Vitamin D deficiency, unspecified[ICD10: E55.9] Diagnosis: Cellulitis of chest wall[ICD10: L03.313] Abril Sheridan MD, [facility] CPT-4: 97960 03/22/2016 ([id number]) 56855 EST. PATIENT, LEVEL IV Diagnosis: Cellulitis of chest wall[ICD10: L03.313] Diagnosis: Pain in right wrist[ICD10: M25.531] Diagnosis: Muscle weakness (generalized)[ICD10: M62.81] Diagnosis: Major depressive disorder, single episode, unspecified[ICD10: F32.9] Abril Sheridan MD, [facility] CPT-4: 63041 03/02/2016 36395 EST. PATIENT, LEVEL IV Diagnosis: Pain in right wrist[ICD10: M25.531] Diagnosis: Tinea corporis[ICD10: B35.4] Diagnosis: Major depressive disorder, single episode, unspecified[ICD10: F32.9] Diagnosis: Vitamin D deficiency, unspecified[ICD10: E55.9] Cydney Sheridan MD, [facility] CPT-4: 89198 02/23/2016 ([id number]) 48518 EST. PATIENT, LEVEL III Diagnosis: Tinea corporis[ICD10: B35.4] Diagnosis: Pain in right wrist[ICD10: M25.531] Ingrid Sheridan MD, [facility] CPT-4: 74130 01/09/2016 ([id number]) 28144 EST. PATIENT, LEVEL III Diagnosis: Tinea corporis[ICD10: B35.4] Diagnosis: Nausea[ICD10: R11.0] Ingrid Sheridan MD, [facility] CPT-4: 40007 12/09/2015 ([id number]) 22717 EST. PATIENT, LEVEL III Diagnosis: Tinea corporis[ICD10: B35.4] Diagnosis: Rash and other nonspecific skin eruption[ICD10: R21] Ingrid Sheridan MD, [facility] CPT-4: 19141 11/14/2015 ([id number]) 15413 EST. PATIENT, LEVEL IV Diagnosis: Tinea corporis[ICD10: B35.4] Diagnosis: Rash and other nonspecific skin eruption[ICD10: R21] Diagnosis: Major depressive disorder, single episode, unspecified[ICD10: F32.9] Diagnosis: Vitamin B12 deficiency anemia, unspecified[ICD10: D51.9] Diagnosis: Vitamin D deficiency, unspecified[ICD10: E55.9] Diagnosis: Mixed hyperlipidemia[ICD10: E78.2] Ingrid Sheridan MD, [facility] CPT-4: 75976 10/31/2015 ([id number]) 08705 EST. PATIENT, LEVEL III Diagnosis: Biceps tendonitis[ICD9: 726.12] Abril Sheridan MD, [facility] CPT- 4: 88095 12/12/2014 ([id number]) 55292 EST. 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 PATIENT, LEVEL IV Diagnosis: Sleep-disordered breathing[ICD9: 780.59] Diagnosis: Fatigue[ICD9: 780.79] Diagnosis: Diaphoresis[ICD9: 780.8] Diagnosis: Tinea corporis[ICD9: 110.5] Abril Sheridan MD, [facility] CPT- 4: 91152 07/03/2014 ([id number]) 33745 EST. PATIENT, LEVEL IV Diagnosis: HYPERLIPIDEMIA[ICD9: 272.4] Diagnosis: DEPRESSIVE DISORDER NEC[ICD9: 311] Diagnosis: Rash[ICD9: 782.1] Diagnosis: Sciatica[ICD9: 724.3] Abril Sheridan MD, [facility] CPT-4: 31323 12/04/2013 ([id number]) 82211 EST. PATIENT, LEVEL III Diagnosis: Tinea corporis[ICD9: 110.5] Ingrid Sheridan MD, [facility] CPT-4: 37527 11/13/2013 ([id number]) 62382 EST. PATIENT, LEVEL III Diagnosis: ESOPHAGEAL REFLUX[ICD9: 530.81] Diagnosis: Post menopausal syndrome[ICD9: V49.81] Abril Sheridan MD, [facility] CPT-4: 14637 07/16/2013 ([id number]) 94956 EST. PATIENT, LEVEL IV Diagnosis: ESOPHAGEAL REFLUX[ICD9: 530.81] Diagnosis: MALAISE AND FATIGUE[ICD9: 780.79] Diagnosis: Abdominal pain[ICD9: 789.00] Diagnosis: B12 DEFIC ANEMIA NEC[ICD9: 281.1] Abril Sheridan MD, [facility] CPT-4: 47004 07/02/2013 ([id number]) 02195 EST. PATIENT, LEVEL III Diagnosis: Acute back pain[ICD9: 724.5] Diagnosis: Chills[ICD9: 780.64] Diagnosis: Acute oral pain[ICD9: 528.9] Abril Sheridan MD, [facility] CPT- 4: 22060 06/18/2013 55852 EST. PATIENT, LEVEL IV Diagnosis: ESOPHAGEAL REFLUX[ICD9: 530.81] Diagnosis: VITAMIN D DEFICIENCY[ICD9: 268.9] Diagnosis: Vitamin B12 deficiency[ICD9: 266.2] Diagnosis: Vitamin B12 deficiency (dietary) anemia[ICD9: 281.1] Diagnosis: DEPRESSIVE DISORDER NEC[ICD9: 311] [facility] CPT-4: 54842 02/15/2013 ([id number]) 48961 EST. PATIENT, LEVEL IV Diagnosis: Hyperlipidemia[ICD9: 272.4] Diagnosis: VITAMIN D DEFICIENCY[ICD9: 268.9] Diagnosis: Elevated blood sugar[ICD9: 790.29] Diagnosis: Elevated blood pressure[ICD9: 796.2] Diagnosis: MALAISE AND FATIGUE[ICD9: 780.79] [facility] CPT-4: 26574 12/15/2012 [id number] 71767 EST. PATIENT, LEVEL III Diagnosis: ESOPHAGEAL REFLUX[ICD9: 530.81] Diagnosis: DEPRESSIVE DISORDER NEC[ICD9: 311] Abril Sheridan MD, [facility] CPT-4: 39224 11/30/2012 Plan of Care Planned Activity Notes Codes Status Date Patient Education: Patient Medication Summary Completed 07/14/2018 Visit Plan: Low back pain- pt to consider referral to ortho or PT - the patient was instructed in appropriate posture, need for weight loss to alleviate abdominal obesity that is worsening the patient's back pain.. The pt is to use prn antiinflammatories to manage acute pain. The patient is to call the office if the pain is worsening or does not improve. right leg pain - ongoing - will start gabapentin - pt is to consider referral to ortho or PT Dysphagia, dysphonia, fatigue, sweating - will order thyroid US and treat or refer as indicated. 07/06/2018 Appointment: Cydney Gilbert WPtel: [address] [place], [place] [id number] [place] (15 min) Moderate 07/06/2018 Patient Education: Patient Medication Summary Completed 07/06/2018 Visit Plan: Low back pain- pt to consider referral to ortho or PT - the patient was instructed in appropriate posture, need for weight loss to alleviate abdominal obesity that is worsening the patient's back pain.. The pt is to use prn antiinflammatories to manage acute pain. The patient is to call the office if the pain is worsening or does not improve. right leg pain - will send RX - if no improvement will try gabapentin 06/07/2018 Appointment: Cydney Gilbert WPtel: [facility][note 3]9 [facility] [place] (15 min) Moderate 06/07/2018 Patient Education: Patient Medication Summary Completed 06/07/2018 Visit Plan: Bursitis - pt to do exercises as directed - stretching, anti-inflammatories to be started after 24 hours, and pt to use heat to the affected sites, pt to call if not improving. 04/28/2018 Appointment: Cydney Gilbert WPtel: [facility][note 3]7 [facility] [place] (15 min) Moderate 04/28/2018 Patient Education: Patient Medication Summary Completed 04/28/2018 Visit Plan: Edema - pt has been advised to elevate legs to prevent dependent edema, compression has been recommended to help to naturally decrease peripheral edema. Diuretic use has been discussed and pt has been instructed in appropriate use of such medication as necessary to further attempt to reduce peripheral edema. Psoriasis flare - The patient was instructed to use the ointment as per RX. The patient is to call for any change in symptoms, increase in size of the lesion, increase in pain, worsening redness , warmth, discharge. 04/03/2018 Appointment: Cydney Gilbert WPtel: [facility][note 3]7 [facility] [place] (15 min) Moderate 04/03/2018 Patient Education: Patient Medication Summary Completed 04/03/2018 Visit Plan: Chronic Depression and anxiety - the pt has symptoms of chronic anxiety and depression that have been fairly well controlled since the last office visit. The pt has expected periods of exacerbation with abatement of the symptoms with change in situational exposure. No change in current medications. Psoriasis - improving - Pt is to follow up with her public health microbiologist Dental infection - will send RX - pt is to follow up with her Dentist PURNIMA 10/18/2017 Appointment: Cydney Gilbert WPtel: [phone] [facility] [place] (30 min) Complex 10/18/2017 Patient Education: Patient Medication Summary Completed [...] discharge. 08/31/2017 App[facility]ment: [phone] (15 min) Moderate 08/31/2017 Patient Education: Patient [...] this patient. 06/21/2017 Appointment: [facility]yd[facility] Gilbert [facility]el[phone] [facility] (30 min) Complex 06/21/2017 Patient Education: Patient Medication Summary Completed 06/21/2017 Care Plan: Referral Order SNOMED-CT : 370908746 Pending 06/19/2017 Visit Plan: Psoriasis - Defer [...] not improved. 05/13/2017 Appointment: Ingrid Llanes WPtel: [facility][note 3]4 [facility] (10 min) Simple 05/13/2017 Patient Education: Patient Medication Summary Completed 05/13/2017 Patient Education: Patient Medication Summary Completed 01/13/2017 Appointment: Abril Sheridan WPtel: [facility][note 3]8 [facility] (15 min) Moderate 12/09/2016 Visit Plan: Psoriasis - symptoms have improved from previous appointment - she is wanting to start Otezla - Spoke with Dr. Woods office on the phone, they are OK with prescribing the medication - appointment date and time given to pt. Pt is to notify clinic with any questions or concerns. 11/30/2016 Appointment: Cydney Gilbert WPtel: [facility][note 3][address] (30 min) Complex 11/30/2016 Patient Education: Patient [...] pruritus. 11/16/2016 Appointment: Cydney Gilbert [facility]Ptel: [phone] [facility] [place] (30 min) Complex 11/16/2016 Patient Education: Patient [...] Obesity Completed 06/10/2016 Appointment: Ingrid Llanes WPtel: [facility]note 3]5 [facility] [place] (15 min) Moderate 06/04/2016 Visit Plan: Inflammation of multiple joints including wrists, hands and muscles aches of legs-recheck inflammatory markers plus uric acid, elle, rf-kenlaog injection today in the office-start prednisone taper tomorrow Erlmrowmux-qyvmicbe-kj change in medication 04/13/2016 Patient Education: Patient [...] Patient Education: Obesity Completed 03/02/2016 [facility] Completed 02/26/2016 Care Plan: Referral Order SNOMED-CT : [id number] Pending 02/24/2016 Visit Plan: Right wrist pain [...] this patient. 02/23/2016 Appointment: Cydney Gilbert WPtel: [address] [place], [place] [phone] (15 min) Moderate 02/23/2016 Patient Education: Patient Medication Summary Completed 02/23/2016 Patient Education: Obesity Completed 02/23/2016 Appointment: Ingrid Llanes WPtel: [address] [place], [place] [phone] [address] (15 min) Moderate 01/29/2016 Visit Plan: Tinea-start [...] instructed on use-follow up in 2 weeks Txuurxweww-tzajenrju-laq vitamin B12 and folic acid-check labs Hyerlipidemia- check labs 10/31/2015 Appointment: Ingrid Llanes WPtel: [address] [place] [address] (15 min) Moderate 10/31/2015 Patient Education: Patient Medication Summary Completed 10/31/2015 Visit Plan: Biceps tendinitis - pt to do exercises as directed, ant-inflammatories directed to be taken per RX instructions and pt to call if symptoms are not improved. 12/12/2014 Appointment: Abril Sheridan WPtel: [address] [place] [address] Follow up 12/12/2014 Patient Education: Patient Medication Summary Completed 12/12/2014 Appointment: Abril hSeridan WPtel: [address] [place] [phone] follow up 12/11/2014 Visit Plan: Hyperlipidemia - [...] for diflucan. 11/11/2014 Appointment: Abril Sheridan WPtel: [facility]note 3]3 [facility] [place] Follow up 11/11/2014 Patient Education: Patient Medication Summary Completed 11/11/2014 Care Plan: COMPLETE CBC AUTOMATED LOINC : 49619-6 Ordered 11/11/2014 Appointment: Abril Sheridan WPtel: [address] [place], [place] [address] [place] Follow up 11/04/2014 Visit Plan: Sleep disordered breathing - recommended appt for sleep apnea evaluation - appt with gallo on 07/16/14 @240pm Tinea - RX sent electronically to the pt's pharmacy. 07/03/2014 Appointment: Abril Sheridan WPtel: [address] [place], [place] [phone] Follow up 07/03/2014 Patient Education: Patient Medication [...] check labs. 12/04/2013 Appointment: Abril Sheridan WPtel: [facility]note 3]5 [facility] [place] Other 12/04/2013 Patient Education: Patient Medication Summary Completed 12/04/2013 Visit Plan: Tinea-discussed natural and expected course of this diagnosis and to alert me if symptoms do not follow expected course, or if any worse, RX sent to patient's pharmacy and instructed on use. Patient verbalized understanding of plan. 11/13/2013 Appointment: Ingrid Llanes WPtel: [address] [place] [id number] Other 11/13/2013 Patient Education: Patient Medication Summary Completed 11/13/2013 Appointment: Abril Sheridan WPtel: [phone] [facility] Follow up 10/16/2013 Visit Plan: Esophageal Reflux [...] not improving. 07/16/2013 Appointment: Abril Sheridan WPtel: [phone] [facility] Follow up 07/16/2013 Patient Education: Patient Medication [...] not improve. 07/02/2013 Appointment: Abril Sheridan [facility]Ptel[phone] Other 07/02/2013 Patient Education: Patient Medication Summary [...] and call if not improving. 06/18/2013 Appointment: Arvin Abril WPtel: [facility][note 3]5 [facility] Other 06/18/2013 Patient Education: Patient Medication Summary Completed 06/18/2013 Appointment: Abril Sheridan WPtel: [facility][note 3]5 [facility] Follow up 03/01/2013 Visit Plan: Esophageal Reflux [...] vitamin D 2000 units daily. 02/15/2013 Appointment: [place] WPtel: [address] [place], [place] [phone] Follow up 02/15/2013 Patient Education: Patient Medication [...] as well. 12/15/2012 Appointment: Ingrid Llanes WPtel: [facility][note 3]5 [facility] Follow up 12/15/2012 Patient Education: Patient Medication [...] current medications. 11/30/2012 Appointment: Abril Sheridan WPtel: [facility][note 3]5 [facility] New Patient 11/30/2012 Patient Education: Patient Medication Summary Completed 11/30/2012 Appointment: Abril Sheridan WPtel: [facility][note 3]5 [facility] New Patient 10/24/2012 Referral: [facility] Referral Initiated Referral: Raghav Perales Referral Initiated Instructions Comment pt to start on carafate four times [...] instructed on use-follow up in 2 weeks Yatssseqph-kuakxamiq-fut vitamin B12 and folic acid-check labs Hyerlipidemia-check labs decrease lexapro to 1/2 pill x 2 [...] been appropriately prescribed for this patient. . Low back pain- pt to consider referral to ortho or PT - the patient was instructed in appropriate posture, need for weight loss to alleviate abdominal obesity that is worsening the patient's back pain.. The pt is to use prn antiinflammatories to manage acute pain. The patient is to call the office if the pain is worsening or does not improve. right leg pain - will send RX - if no improvement will try gabapentin cbc, cmp CT ABD/PELVIS Clear liquid diet-advance [...] clean/dry. Follow up in 10 days . Low back pain- pt to consider referral to ortho or PT - the patient was instructed in appropriate posture, need for weight loss to alleviate abdominal obesity that is worsening the patient's back pain.. The pt is to use prn antiinflammatories to manage acute pain. The patient is to call the office if the pain is worsening or does not improve. right leg pain - ongoing - will start gabapentin - pt is to consider referral to ortho or PT Dysphagia, dysphonia, fatigue, sweating - will order thyroid US and treat or refer as indicated. . Cellulitis of chest wall - improving [...] today in the office-start prednisone taper tomorrow Axeybkuvsz-jxqfkbmt-gi change in medication . Bursitis - pt to do exercises as directed - stretching, anti-inflammatories to be started after 24 hours, and pt to use heat to the affected sites, pt to call if not improving. 1. will send hydroxyzine to take as [...] if the symptoms are not improving. . Psoriasis Flare - Pt states that she has been seeing Dr. Woods, who wants to start her on Humira - she states that she does not want to start Humira, but has seen commercials for Otezla and she would like to try that - Will discuss with Dr. Sheridan - will send RX for acute flare and pruritus. . Esophageal Reflux - the patient has been counseled against excessive intake of caffiene, spicy foods, peppermint, and cinnamon - all of which can exacerbate esophageal reflux. The patient is to take medications as prescribed and call the office if the symptoms are not improving. Post menopausal - pt to continue with estradiol, monitor symptoms, call if not improving. . Chronic Depression and anxiety - the [...] increase in pain, worsening redness, warmth, discharge. Vitamin D 5000 units daily [employer] and home - get two old goats [...] days ago CALL TUESDAY WITH UPDATE . Tinea-discussed natural [...] repeat in 3 months as well. . Biceps tendinitis - pt to do exercises as directed, ant- inflammatories directed to be taken per RX instructions and pt to call if symptoms are not improved. carotid us on a tuesday compression stockings - let me know if it is not getting better and we will order an ultra sound - if you get short of breath or chest pain go to the ER will refill the cream for your elbows. . Edema - pt has been advised to elevate legs to prevent dependent edema, compression has been recommended to help to naturally decrease peripheral edema. Diuretic use has been discussed and pt has been instructed in appropriate use of such medication as necessary to further attempt to reduce peripheral edema. Psoriasis flare - The patient was instructed to use the ointment as per RX. The patient is to call for any change in symptoms, increase in size of the lesion, increase in pain, worsening redness, warmth, discharge. . Chronic Depression and anxiety - the pt has symptoms of chronic anxiety and depression that have been fairly well controlled since the last office visit. The pt has expected periods of exacerbation with abatement of the symptoms with change in situational exposure. No change in current medications. Psoriasis - improving - Pt is to follow up with her public health microbiologist Dental infection - will send RX - pt is to follow up with her Dentist PURNIMA Will change from Cymbalta to Lexapro - [...] been appropriately prescribed for this patient. . Hyperlipidemia - pt has been counseled [...]
[2018-12-23] MEDS ORDERED: LORazepam INJ 2 MG/ML (ATIVAN) VIAL IVP PRN (17:30)
[2018-12-23] MEDS ORDERED: ONDANSETRON 4 MG/2 ML (SDV) Z0FRAN IVP ONE (17:30)
--- NOTE | 2018-12-23 17:34 | ED GI ---
General Chief Complaint: Abdominal/GI Problems Stated Complaint: STOMACH PAIN/NAUSEA Source of Information: Patient Exam Limitations: No Limitations History of Present Illness Date Seen by Provider: Dec 23, 2018 Time Seen by Provider: 17:32 Initial Comments To ER with midline low back pain that radiates up to her cervical spine that started last night. She has some diffuse abdominal pain and intense nausea. She also feels very anxious. She denies chest pain. Timing/Duration: 1-2 Days Severity/Quality: Cramping Location: Generalized Abdomen Radiation: Back Activities at Onset: None Associated Symptoms: Nausea/Vomiting Allergies and Home Medications Allergies Coded Allergies: Penicillins (Verified Allergy, Mild, RASH, ITCHING, 05/25/18) codeine (Unverified Allergy, Unknown, RASH, ITCHING, 05/25/18) Home Medications Cyanocobalamin (Vitamin B-12) 1,000 Mcg Tablet.er, 1,000 MCG PO DAILY, (Reported ) Duloxetine HCl 60 Mg Capsule.dr, 60 MG PO DAILY, (Reported) Esomeprazole Magnesium 40 Mg Cap, 40 MG PO DAILY, (Reported) Multivitamin 1 Each Tablet, 1 EACH PO DAILY, (Reported) Patient Home Medication List Home Medication List Reviewed: Yes Review of Systems Review of Systems Constitutional: see HPI; No chills, No fever, No malaise EENTM: No Symptoms Reported Respiratory: No Symptoms Reported Cardiovascular: See HPI; Denies Chest Pain Gastrointestinal: See HPI, Abdominal Pain; Denies Constipated, Denies Diarrhea ; Nausea; Denies Vomiting Genitourinary: No Symptoms Reported Musculoskeletal: no symptoms reported Skin: no symptoms reported Psychiatric/Neurological: No Symptoms Reported Endocrine: No Symptoms Reported Hematologic/Lymphatic: No Symptoms Reported Past Sapoyek-Pxccrk-Egtbvu Hx Patient Social History Recent Foreign Travel: No Contact w/Someone Who Travel: No Recent Hopitalizations: No Immunizations Up To Date Date of Pneumonia Vaccine: Jul 03, 2013 Date of Influenza Vaccine: Jul 03, 2016 Seasonal Allergies Seasonal Allergies: No Past Medical History Surgeries: Yes Section, Hysterectomy, Joint Replacement, Orthopedic Respiratory: No Cardiac: Yes High Cholesterol Neurological: No Reproductive Disorders: No [employer] History: Hysterectomy Sexually Transmitted Disease: No Gastrointestinal: Yes Gastroesophageal Reflux Musculoskeletal: Yes Arthritis, Chronic Back Pain Endocrine: No Cancer: Yes Skin Psychosocial: Yes Anxiety, Depression Integumentary: Yes Psoriasis Blood Disorders: No Adverse Reaction/Blood Tranf: No Physical Exam Vital Signs Vital Signs - First Documented 12/23/18 17:20 Temp 96.0 Pulse 86 Resp 28 B/P (MAP) 150/88 (108) Pulse Ox 99 O2 Delivery Room Air Capillary Refill : Height/Weight/BMI Height: 5'5.00" Weight: 185lbs. 0.0oz. 83.855758wq; 27.8 BMI Method:Stated General Appearance: WD/WN, mild distress HEENT: PERRL/EOMI, normal ENT inspection Respiratory: no respiratory distress, no accessory muscle use, other (very anxious appearing and tachypneic. States that she "can't get myself calmed down ") Cardiovascular: regular rate, rhythm, no murmur Gastrointestinal: normal bowel sounds, soft, tenderness Neurologic/Psychiatric: alert, normal mood/affect, oriented x 3 Skin: normal color, warm/dry Focused Exam Lactate Level 12/23/18 17:45: Lactic Acid Level 2.06*H Lactic Acid Level Laboratory Tests Test 12/23/18 17:45 Lactic Acid Level 2.06 MMOL/L (0.50-2.00) *H Progress/Results/Core Measures Results/Orders Lab Results Laboratory Tests Test 12/23/18 17:45 Range/Units White Blood Count 11.8 H 4.3-11.0 10^3/uL Red Blood Count 5.13 4.35-5.85 10^6/uL Hemoglobin 16.1 H 11.5-16.0 G/DL Hematocrit 46 35-52 % Mean Corpuscular Volume 89 80-99 FL Mean Corpuscular Hemoglobin 31 25-34 PG Mean Corpuscular Hemoglobin Concent 35 32-36 G/DL Red Cell Distribution Width 13.0 10.0-14.5 % Platelet Count 256 130-400 10^3/uL Mean Platelet Volume 9.4 7.4-10.4 FL Neutrophils (%) (Auto) 60 42-75 % Lymphocytes (%) (Auto) 31 12-44 % Monocytes (%) (Auto) 7 0-12 % Eosinophils (%) (Auto) 1 0-10 % Basophils (%) (Auto) 0 0-10 % Neutrophils # (Auto) 7.1 1.8-7.8 X 10^3 Lymphocytes # (Auto) 3.7 1.0-4.0 X 10^3 Monocytes # (Auto) 0.9 0.0-1.0 X 10^3 Eosinophils # (Auto) 0.1 0.0-0.3 10^3/uL Basophils # (Auto) 0.0 0.0-0.1 10^3/uL Sodium Level 139 135-145 MMOL/L Potassium Level 3.7 3.6-5.0 MMOL/L Chloride Level 107 98-107 MMOL/L Carbon Dioxide Level 18 L 21-32 MMOL/L Anion Gap 14 5-14 MMOL/L Blood Urea Nitrogen 10 7-18 MG/DL Creatinine 0.89 0.60-1.30 MG/DL Estimat Glomerular Filtration Rate > 60 BUN/Creatinine Ratio 11 Glucose Level 115 H 70-105 MG/DL Lactic Acid Level 2.06 *H 0.50-2.00 MMOL/L Calcium Level 10.4 H 8.5-10.1 MG/DL Corrected Calcium 10.1 8.5-10.1 MG/DL Total Bilirubin 0.5 0.1-1.0 MG/DL Aspartate Amino Transf (AST/SGOT) 29 5-34 U/L Alanine Aminotransferase (ALT/SGPT) 27 0-55 U/L Alkaline Phosphatase 104 40-136 U/L Troponin I < 0.028 <0.028 NG/ML Total Protein 7.6 6.4-8.2 GM/DL Albumin 4.4 3.2-4.5 GM/DL Lipase 16 8-78 U/L My Orders Orders - FRANK DEUTSCH APRN Ua Culture If Indicated (12/23/18 17:29) Troponin I (12/23/18 17:29) Ekg Tracing (12/23/18 17:29) Continuous Ekg Monitoring (12/23/18 17:29) Cbc With Automated Diff (12/23/18 17:29) Comprehensive Metabolic Panel (12/23/18 17:29) Lipase (12/23/18 17:29) Chest 1 View, Ap/Pa Only (12/23/18 17:29) Iv Heplock-Insert (Order) (12/23/18 17:29) Lorazepam Injection (Ativan Injection) (12/23/18 17:30) Ondansetron Injection (Zofran Injectio (12/23/18 17:30) Fentanyl Injection (Sublimaze Injection (12/23/18 17:57) Ct Abdomen/Pelvis W (12/23/18 18:06) Fentanyl Injection (Sublimaze Injection (12/23/18 19:15) Lactic Acid Analyzer (12/23/18 19:16) Benzocaine Extension Tube (Hurricaine Ex (12/23/18 19:30) Medications Given in ED Current Medications Medications Dose Ordered Sig/Anson Route Start Time Stop Time Status Last Admin Dose Admin Fentanyl Citrate 50 mcg ONCE ONCE IVP 12/23/18 19:15 12/23/18 19:16 DC 12/23/18 19:30 50 MCG Fentanyl Citrate 100 mcg STK-MED ONCE .ROUTE 12/23/18 17:57 12/23/18 17:59 DC 12/23/18 18:00 100 MCG Lorazepam 0.5 mg Q4H PRN IVP 12/23/18 17:30 12/23/18 17:44 0.5 MG Ondansetron HCl 8 mg ONCE ONCE IVP 12/23/18 17:30 12/23/18 17:31 DC 12/23/18 17:44 8 MG Vital Signs/I&O 12/23/18 17:20 Temp 96.0 Pulse 86 Resp 28 B/P (MAP) 150/88 (108) Pulse Ox 99 O2 Delivery Room Air Departure Communication (Admissions) Time/Spoke to Admitting Phy: 20:[address] Kidd, we'll admit. We'll consult surgery. I then spoke with Dr. Perales. Agrees to consult. We did initiate nasogastric tube 16 Brazilian left nostril by me at this time. Despite not having anything to eat or drink since noon today we were able immediately to suction 750 mL of material . This was sufficient to confirm tube placement in the gastrointestinal tract Impression Primary Impression: Small bowel obstruction Disposition: 09 ADMITTED INPATIENT Condition: Stable Admissions Decision to Admit Reason: Admit from ER (General) Decision to Admit/Date: Dec 23, 2018 Time/Decision to Admit Time: 20:15 Departure-Patient Inst. Referrals: JUAN CHEN MD (PCP/Family) Primary Care Physician FRANK DEUTSCH APRN Dec 23, 2018 17:34
--- OUTSIDE RECORDS SUMMARY | 2018-12-23 17:34 | XMS REPORT | CCD ---
Author Author Abril Sheridan Organization Abril Sheridan MD, [facility] Address [address] [place] [address] Phone Care Team Providers Care [employer] Officer Name Role Phone PP Unavailable CCM Unavailable Summary Purpose Interface Exchange Insurance Providers Payer name Policy type / Coverage type Covered green party ID Effective Begin Date Effective End Date WPS Medicare Part B Medicare Part B [id number] Unknown Unknown [employer] Medicare Part B [id number] Unknown Unknown Family history Sister Diagnosis Age [...] Description Effective Dates Tobacco history SNOMED CT: 671576642 Never smoker 11/30/[address]: 466298134 Never drinks alcohol 11/30/2012 Has the patient [...] Instructions Nexium 40 mg capsule,delayed release RxNorm: 774194 Capsule(s) TAKE ONE CAPSULE BY MOUTH ONCE DAILY 11/06/2018 No Stop Date Active Nexium 40 mg capsule,delayed release RxNorm: 430286 Capsule(s) TAKE ONE CAPSULE BY MOUTH ONCE DAILY 10/31/2018 11/05/2018 Inactive Cymbalta 30 mg capsule,delayed release RxNorm: 482089 TAKE ONE CAPSULE BY MOUTH ONCE DAILY 07/11/2018 No Stop Date Active Nexium 40 mg capsule,delayed release RxNorm: 350998 TAKE ONE CAPSULE BY MOUTH ONCE DAILY 07/11/2018 10/30/2018 Inactive gabapentin 100 mg capsule RxNorm: 962429 1 Capsule(s) PO TID 08/04/2018 Inactive prednisone 20 mg tablet RxNorm: 520045 2 Tablet(s) PO daily 01/201806/11/2018 Inactive betamethasone dipropionate 0.05 % topical cream RxNorm: 772207 1 Application TOP BID 06/06/2018 No Stop Date Active Voltaren 1 % topical gel RxNorm: 426329 1 Application TOP BID 04/28/2018 No Stop Date Active naproxen 500 mg tablet RxNorm: 316907 1 Tablet(s) PO BID 201705/02/2018 Inactive betamethasone dipropionate 0.05 % topical cream RxNorm: 810643 1 Application TOP BID 04/03/2018 06/05/2018 Inactive Nexium 40 mg capsule,delayed release RxNorm: 601804 TAKE ONE CAPSULE BY MOUTH ONCE DAILY 10/31/2017 07/10/2018 Inactive Cymbalta 30 mg capsule,delayed release RxNorm: 608000 1 Capsule(s) PO daily 10/18/2017 04/15/2018 Inactive clindamycin HCl 300 mg capsule RxNorm: 773127 1 Capsule(s) PO TID 10/18/2017 10/27/2017 Inactive tramadol 50 mg tablet RxNorm: 755283 1 Tablet(s) PO TID as needed 10/18/2017 07/03/2018 Inactive Cymbalta 30 mg capsule,delayed release RxNorm: 939980 1 Capsule(s) PO daily 10/04/2017 10/17/2017 Inactive Cymbalta 30 mg capsule,delayed release RxNorm: 138247 1 Capsule(s) PO daily 10/04/2017 10/03/2017 Inactive prednisone 20 mg tablet RxNorm: 166389 2 Tablet(s) PO daily 09/04/2017 Inactive betamethasone dipropionate 0.05 % topical cream RxNorm: 420836 1 Application TOP BID 08/31/2017 04/02/2018 Inactive Wellbutrin XL 150 mg 24 hr tablet, extended release RxNorm: 065517 1 Tablet(s) PO daily 07/26/2017 10/17/2017 Inactive Wellbutrin XL 150 mg 24 hr tablet, extended release RxNorm: 954305 1 Tablet(s) PO daily 06/21/2017 07/20/2017 Inactive Pepcid 20 mg tablet RxNorm: 083812 1 Tablet(s) PO BID 201606/23/2017 Inactive hydroxyzine HCl 25 mg tablet RxNorm: 749106 1 Tablet(s) PO TID as needed 06/14/2017 07/03/2018 Inactive itching/insomnia Flagyl 500 mg tablet RxNorm: 258989 1 Tablet(s) PO TID 201605/22/2017 Inactive Cipro 500 mg tablet RxNorm: 912097 1 Tablet(s) PO BID 201605/22/2017 Inactive Lexapro 20 mg tablet RxNorm: 502023 Tablet(s) TAKE ONE TABLET BY MOUTH ONCE DAILY 03/04/2017 08/15/2017 Inactive Nexium 40 mg capsule,delayed release RxNorm: 711694 TAKE ONE CAPSULE BY MOUTH ONCE DAILY 02/14/2017 08/15/2017 Inactive Vitamin D2 50,000 unit capsule RxNorm: 302184 1 Capsule(s) PO QW 01/19/2017 04/12/2017 Inactive one weekly for 12 weeks then 2000 units daily thereafter Lexapro 20 mg tablet RxNorm: 011273 TAKE ONE TABLET BY MOUTH ONCE DAILY 01/14/2017 03/03/2017 Inactive betamethasone dipropionate 0.05 % topical ointment RxNorm: 752098 1 Application TOP BID in between gentamycin applications 11/16/2016 No Stop Date Active prednisone 10 mg tablet RxNorm: 975753 Tablet(s) PO UD 201610/17/2017 Inactive 6,6,5,5,4,4,3,3,2,2,1,1, then 1/2 every other day x 2 doses Lexapro 20 mg tablet RxNorm: 208888 Tablet(s) 1 Tablet(s) PO daily 08/27/2016 03/03/2017 Inactive Lexapro 20 mg tablet RxNorm: 712409 1 Tablet(s) PO daily 201508/26/2016 Inactive Lexapro 20 mg tablet RxNorm: 196882 1 Tablet(s) PO daily 201508/24/2016 Inactive Lexapro 20 mg tablet RxNorm: 353865 1 Tablet(s) PO daily 201507/21/2016 Inactive hydrocodone 5 mg-acetaminophen 325 mg tablet RxNorm: 525694 1 Tablet(s) PO Q6 PRN 06/10/2016 07/03/2018 Inactive hydroxyzine HCl 25 mg tablet RxNorm: 153324 1 Tablet(s) PO HS PRN 06/10/2016 07/09/2016 Inactive itching/anxiety/insomnia meloxicam 7.5 mg tablet RxNorm: 931821 2 Tablet(s) PO daily 05/201608/16/2017 Inactive Lexapro 20 mg tablet RxNorm: 353455 1 Tablet(s) PO daily 201506/10/2016 Inactive prednisone 10 mg tablets in a dose pack RxNorm: 327127 1 Tablet(s) PO UD 04/13/2016 04/18/2016 Inactive 6-5-4-3-2-1 Kenalog 40 mg/mL suspension for injection RxNorm: 2993185 Milliliter(s) Inj 04/13/2016 04/13/2016 Inactive Lexapro 20 mg tablet RxNorm: 644195 1 Tablet(s) PO daily 201504/29/2016 Inactive Vitamin D3 5,000 unit tablet RxNorm: 306089 2 Tablet(s) PO daily 03/22/2016 No Stop Date Active gentamicin 0.1 % topical ointment RxNorm: 623150 1 Application TOP QID to affected skin tissue 03/22/20162015 Inactive folic acid 1 mg tablet RxNorm: 255546 1 Tablet(s) PO daily 10/17/2017 Inactive betamethasone dipropionate 0.05 % topical ointment RxNorm: 649745 1 Application TOP BID in between gentamycin applications 03/15/2016 11/15/2016 Inactive gentamicin 0.1 % topical ointment RxNorm: 716239 1 Application TOP QID to affected skin tissue 03/02/20162015 Inactive ciprofloxacin 500 mg tablet RxNorm: 062351 1 Tablet(s) PO BID 03/02/2016 03/11/2016 Inactive nystatin 100,000 unit/gram topical cream RxNorm: 163279 1 Application TOP BID 02/23/2016 No Stop Date Active Lexapro 20 mg tablet RxNorm: 461923 1 Tablet(s) PO daily 201503/23/2016 Inactive prednisone 20 mg tablet RxNorm: 374806 2 Tablet(s) PO daily 02/27/2016 Inactive Ultram 50 mg tablet RxNorm: 733849 1 Tablet(s) PO Q6 PRN as needed 02/19/2016 03/01/2016 Inactive duloxetine 60 mg capsule,delayed release RxNorm: 820128 1 Capsule(s) PO daily 01/26/2016 03/01/2016 Inactive [SAVINGS FOR UNINSURED PATIENTS -- BIN:538539, PCN: ASPROD1, Group: AME08, ID# [id number], Process claim through [employer], for questions: . THIS IS NOT INSURANCE.] Nexium 40 mg capsule,delayed release RxNorm: 439097 1 Tablet(s) PO daily 01/09/2016 04/02/2017 Inactive [SAVINGS FOR NON-COVERED DRUGS -- BIN:718763, PCN: ASPROD1, Group: XXXXX, ID# [id number], Questions: . THIS IS NOT INSURANCE.] ketoconazole 2 % topical cream RxNorm: 595680 1 Application TOP BID 01/09/2016 01/22/2016 Inactive triamcinolone acetonide 0.1 % topical cream RxNorm: 2186743 1 Application TOP BID 01/09/2016 01/22/2016 Inactive Nexium 40 mg capsule,delayed release RxNorm: 788989 1 Tablet(s) PO daily 01/09/2016 01/08/2016 Inactive [SAVINGS FOR NON-COVERED DRUGS -- BIN:445040, PCN: ASPROD1, Group: XXXXX, ID# [id number], Questions: . THIS IS NOT INSURANCE.] Diflucan 150 mg tablet RxNorm: 605548 1 Tablet(s) PO daily 05/201602/06/2016 Inactive daily x 7 days then weekly x 4 weeks clotrimazole 1 % topical cream RxNorm: 491081 1 Application TOP BID 12/09/2015 12/22/2015 Inactive hydroxyzine HCl 25 mg tablet RxNorm: 527390 1 Tablet(s) PO HS PRN 11/14/2015 06/13/2017 Inactive itching/insomnia Levaquin 500 mg tablet RxNorm: 099583 1 Tablet(s) PO daily 09/201611/23/2015 Inactive Vitamin D2 50,000 unit capsule RxNorm: 982711 1 Capsule(s) PO QW 11/05/2015 01/27/2016 Inactive one weekly for 12 weeks then 2000 units daily thereafter duloxetine 60 mg capsule,delayed release RxNorm: 083888 1 Capsule(s) PO daily 11/04/2015 01/25/2016 Inactive [SAVINGS FOR UNINSURED PATIENTS -- BIN:217574, PCN: ASPROD1, Group: AME08, ID# [id number], Process claim through [employer], for questions: . THIS IS NOT INSURANCE.] Levaquin 500 mg tablet RxNorm: 797665 1 Tablet(s) PO daily hold diflucan while on the ABX then resume diflucan once completed 11/03/2015 11/09/2015 Inactive Levaquin 500 mg tablet RxNorm: 149191 1 Tablet(s) PO daily 10/201511/02/2015 Inactive nystatin 100,000 unit/gram topical powder RxNorm: 860296 1 Application TOP QID apply to breast tissue, and abdominal folds 10/31/2015 12/29/2015 Inactive dispense quantity sufficient Diflucan 150 mg tablet RxNorm: 809623 1 Tablet(s) PO daily 11/13/2015 Inactive daily x 10 days then weekly x 4 weeks Diflucan 150 mg tablet RxNorm: 452488 1 Tablet(s) PO every other day 10/08/2015 11/18/2015 Inactive [SAVINGS FOR UNINSURED PATIENTS -- BIN:702331, PCN: [id number], Group: AME08, ID# [id number], Process claim through [employer], for questions: [phone]. THIS IS NOT INSURANCE.] nystatin 100,000 unit/gram topical powder RxNorm: 771763 1 Application TOP QID apply to breast tissue, and abdominal folds 07/28/2015 08/24/2015 Inactive dispense quantity sufficient mupirocin 2 % topical ointment RxNorm: 023546 1 Application TOP TID apply under breast tissue and abdominal folds 07/24/2015 03/01/2016 Inactive dispense qs x 14 days nystatin 100,000 unit/gram topical powder RxNorm: 167729 1 Application TOP QID apply to breast tissue, and abdominal folds 07/24/2015 07/27/2015 Inactive dispense quantity sufficient pravastatin 20 mg tablet RxNorm: 734779 1 Tablet(s) PO daily 03/01/2016 Inactive [SAVINGS FOR UNINSURED PATIENTS -- BIN:557914, PCN: ASPROD1, Group: AME08 , ID# [id number], Process claim through [employer], for questions: . THIS IS NOT INSURANCE.] Nexium 40 mg capsule,delayed release RxNorm: 807197 TAKE ONE CAPSULE BY MOUTH ONCE DAILY 12/30/2014 06/27/2015 Inactive Nexium 40 mg capsule,delayed release RxNorm: 063690 1 Tablet(s) PO daily 12/30/2014 01/08/2016 Inactive [SAVINGS FOR NON-COVERED DRUGS -- BIN:057681, PCN: ASPROD1, Group: XXXXX, ID# [id number], Questions: . THIS IS NOT INSURANCE.] prednisone 20 mg tablet RxNorm: 978622 3 Tablet(s) PO daily 09/201512/16/2014 Inactive [SAVINGS FOR NON-COVERED DRUGS -- BIN:006775, PCN: ASPROD1, Group: XXXXX, ID# [id number], Questions: . THIS IS NOT INSURANCE.] Kenalog 40 mg/mL suspension for injection RxNorm: 9734680 Milliliter(s) Inj 12/12/2014 12/12/2014 Inactive [SAVINGS FOR NON-COVERED DRUGS -- BIN:090853, PCN: ASPROD1, Group: XXXXX, ID# [id number], Questions: . THIS IS NOT INSURANCE.] pravastatin 10 mg tablet RxNorm: 433440 1 Tablet(s) PO daily 11/17/2014 Inactive pravastatin 10 mg tablet RxNorm: 858492 1 Tablet(s) PO daily 11/17/2014 Inactive [SAVINGS FOR UNINSURED PATIENTS -- BIN:313179, PCN: ASPROD1, Group: AME08 , ID# [id number], Process claim through [employer], for questions: . THIS IS NOT INSURANCE.] pravastatin 10 mg tablet RxNorm: 554187 1 Tablet(s) PO daily 06/15/2015 Inactive pravastatin 10 mg tablet RxNorm: 720456 1 Tablet(s) PO daily 03/02/2015 Inactive [SAVINGS FOR UNINSURED PATIENTS -- BIN:930999, PCN: ASPROD1, Group: AME08 , ID# [id number], Process claim through [employer], for questions: . THIS IS NOT INSURANCE.] duloxetine 60 mg capsule,delayed release RxNorm: 116700 1 Capsule(s) PO daily 11/11/2014 06/08/2015 Inactive [SAVINGS FOR UNINSURED PATIENTS -- BIN:980204, PCN: ASPROD1, Group: AME08, ID# [id number], Process claim through [employer], for questions: . THIS IS NOT INSURANCE.] Brisdelle 7.5 mg capsule RxNorm: 3206948 1 Capsule(s) PO daily 11/11/2014 01/09/2015 Inactive [SAVINGS FOR UNINSURED PATIENTS -- BIN:694234, PCN: ASPROD1, Group: AME08, ID# [id number], Process claim through [employer], for questions: [phone]. THIS IS NOT INSURANCE.] Diflucan 150 mg tablet RxNorm: 227895 1 Tablet(s) PO every other day 11/11/2014 12/22/2014 Inactive [SAVINGS FOR UNINSURED PATIENTS -- BIN:968926, PCN: ASPROD1, Group: AME08, ID# [id number], Process claim through [employer], for questions: [phone]. THIS IS NOT INSURANCE.] nystatin 100,000 unit/gram topical powder RxNorm: 858662 1 Application TOP QID apply to breast tissue, and abdominal folds 07/15/2014 07/28/2014 Inactive dispense quantity sufficient Diflucan 150 mg tablet RxNorm: 018065 1 Tablet(s) PO daily 10/201307/07/2014 Inactive mupirocin 2 % topical ointment RxNorm: 342562 1 Application TOP TID apply under breast tissue and abdominal folds 05/17/2014 06/13/2014 Inactive dispense qs x 14 days gemfibrozil 600 mg tablet RxNorm: 440139 1 Tablet(s) PO BID 08/201412/10/2013 Inactive gemfibrozil 600 mg tablet RxNorm: 593098 1 Tablet(s) PO BID 08/201403/02/2015 Inactive Medrol ([place]arm[place]) 4 mg tablets in a dose pack RxNorm: 243279 Tablet(s) PO as directed 12/05/2013 06/03/2014 Inactive Ultram 50 mg tablet RxNorm: 116518 1 Tablet(s) PO Q6 PRN 12/0502/18/2016 Inactive nystatin 100,000 unit/gram topical powder RxNorm: 664842 1 Application TOP QID apply to breast tissue, and abdominal folds 12/04/2013 07/02/2014 Inactive dispense quantity sufficient Nexium 40 mg capsule,delayed release RxNorm: 827298 1 Tablet(s) PO daily 12/04/2013 12/29/2014 Inactive Kenalog 40 mg/mL suspension for injection RxNorm: 2835998 Milliliter(s) Inj 12/04/2013 12/04/2013 Inactive mupirocin 2 % topical ointment RxNorm: 731923 1 Application TOP TID apply under breast tissue and abdominal folds 12/04/2013 12/17/2013 Inactive dispense qs x 14 days Cymbalta 60 mg capsule,delayed release RxNorm: 185525 1 Capsule(s) PO daily 12/04/2013 11/10/2014 Inactive Diflucan 150 mg tablet RxNorm: 989314 1 Tablet(s) PO daily 11/28/2013 Inactive Cymbalta 60 mg capsule,delayed release RxNorm: 165356 1 Capsule(s) PO daily 11/13/2013 12/03/2013 Inactive Diflucan 150 mg tablet RxNorm: 554123 1 Tablet(s) PO daily 08/201411/19/2013 Inactive nystatin 100,000 unit/gram topical powder RxNorm: 554081 1 Gram(s) TOP BID 11/13/2013 11/22/2013 Inactive Vitamin D2 50,000 unit capsule RxNorm: 075007 1 Capsule(s) PO QW 07/03/2013 No Stop Date Active one weekly for 12 weeks then 2000 units daily thereafter sucralfate 100 mg/mL Oral Susp RxNorm: 499123 10 Milliliter(s) PO QID 07/02/2013 10/29/2013 Inactive estradiol 0.5 mg tablet RxNorm: 504930 1 Tablet(s) PO daily 07/02/2014 Inactive promethazine 25 mg/mL Injection RxNorm: 163403 Milliliter(s) Inj 07/02/2013 07/02/2013 Inactive Kenalog 40 mg/mL Susp for Injection RxNorm: 7731108 Milliliter(s) Inj 06/18/2013 06/18/2013 Inactive clindamycin 300 mg capsule RxNorm: 122491 1 Capsule(s) PO TID 06/18/2013 06/24/2013 Inactive meloxicam 7.5 mg tablet RxNorm: 550206 1 Tablet(s) PO daily 07/01/2013 Inactive Cymbalta 60 mg capsule,delayed release RxNorm: 433119 1 Capsule(s) PO daily 05/07/2013 11/02/2013 Inactive Nexium 40 mg capsule,delayed release RxNorm: 648010 1 Tablet(s) PO daily 02/15/2013 09/12/2013 Inactive Vitamin D2 50,000 unit capsule RxNorm: 148015 1 Capsule(s) PO QW 12/07/2012 03/06/2013 Inactive one weekly for 12 weeks then 2000 units daily thereafter Vitamin D2 50,000 unit capsule RxNorm: 812509 1 Capsule(s) PO QW 12/07/2012 12/06/2012 Inactive one weekly for 12 weeks then 2000 units daily thereafter pantoprazole 40 mg tablet,delayed release RxNorm: 152943 1 Tablet(s) PO QPM 11/30/2012 02/14/2013 Inactive sucralfate 100 mg/mL Oral Susp RxNorm: 608863 10 Milliliter(s) PO QID 10 ML by mouth before meals and before bed 11/30/2012 02/15/2013 Inactive multivitamin tablet RxNorm: 1 Tablet(s) PO daily No Start Date Active jonny Red [place] 3 Krill Oil RxNorm: 1 PO BID No Start Date Active Xanax 0.5 mg tablet RxNorm: 447739 1/2 to 1 Tablet(s) PO Q6 PRN No Start Date 03/01/2016 Inactive Cymbalta 60 mg capsule,delayed release RxNorm: 775216 1 Capsule(s) PO daily No Start Date 05/06/2013 Inactive betamethasone dipropionate 0.05 % topical ointment RxNorm: 737963 1 Application TOP BID in between gentamycin applications No Start Date 03/14/2016 Inactive Aleve 220 mg tablet RxNorm: 066362 2 Tablet(s) PO daily No Start Date 03/21/2016 Inactive Vitamin B-12 1,000 mcg tablet RxNorm: 619001 1 Tablet(s) PO daily No Start Date 10/17/2017 Inactive Vitamin D3 2,000 unit capsule RxNorm: 778890 1 Capsule(s) PO daily No Start Date 12/12/2013 Inactive omeprazole 20 mg capsule,delayed release RxNorm: 319632 1 Capsule(s) PO daily No Start Date 11/30/2012 Inactive Ultram 50 mg tablet RxNorm: 645293 1 Tablet(s) PO Q6 PRN No Start Date 12/04/2013 Inactive folic acid oral RxNorm : oral No Start Date 03/21/2016 Inactive Vitamin D3 5,000 unit tablet RxNorm: 183310 1 Tablet(s) PO daily No Start Date 03/21/2016 Inactive Calcium 500 + D (D3) 500 mg-125 unit tablet RxNorm: 917746 1 Tablet(s) PO daily No Start Date 03/21/2016 Inactive Medrol (Carmine) 4 mg tablets in a dose pack RxNorm: 976829 Tablet(s) PO as doctor directed No Start Date 12/04/2013 Inactive Medication Administered Medication Codes Instructions Start Date Status Kenalog 40 mg/mL suspension for injection RxNorm: 6546950 Milliliter 04/13/2016 No longer Active Kenalog 40 mg/mL suspension for injection RxNorm: 2105203 Milliliter 12/12/2014 No longer Active Kenalog 40 mg/mL suspension for injection RxNorm: 3985333 Milliliter 12/04/2013 No longer Active promethazine 25 mg/mL Injection RxNorm: 358588 Milliliter 07/02/2013 No longer Active Kenalog 40 mg/mL Susp for Injection RxNorm: 6724188 Milliliter 06/18/2013 No longer Active Immunizations Vaccine [...] Ord90 Mag 1.9 mg/dL 07/14/2018 Free T4 Ovs423 FREE T4 0.71 ng/dL 07/14/2018 Tsh Ord6 TSH (3rd IS) 1.73 uIU/mL 07/14/2018 Tsh Ord6 TSH (3rd IS) 1.50 uIU/mL 04/03/2018 Comp Metabolic Sfz843 NA 137 mEq/L 04/03/2018 Comp Metabolic Hdg753 K 4.4 mEq/L 04/03/2018 Comp Metabolic Ayn706 CL 99 mEq/L 04/03/2018 Comp Metabolic Wrr436 CO2 29.0 mEq/L 04/03/2018 Comp Metabolic Iwl831 ANION GAP 13 04/03/2018 Comp Metabolic Bja156 GLUCOSE 88 mg/dL 04/03/2018 Comp Metabolic Acs583 Creat 0.9 mg/dL 04/03/2018 Comp Metabolic Zdr792 eGFR 64 ml/min/1.73m2 04/03/2018 Comp Metabolic Lyq744 BUN 21 mg/dL 04/03/2018 Comp Metabolic Jkp542 B/C Ratio 23.1 Ratio 04/03/2018 Comp Metabolic Dyf129 CALCIUM 10.0 mg/dL 04/03/2018 Comp Metabolic Nlc957 ALK PHOS 112 U/L 04/03/2018 Comp Metabolic Buw538 AST(SGOT) 24 U/L 04/03/2018 Comp Metabolic Lnv337 ALT(SGPT) 20 U/L 04/03/2018 Comp Metabolic Nwr898 BILI T 0.3 mg/dL 04/03/2018 Comp Metabolic Vqo199 ALBUMIN 4.4 g/dL 04/03/2018 Comp Metabolic Ubf318 TPRO 7.0 g/dL 04/03/2018 Comp Metabolic Uav943 GLOB 2.6 g/dL 04/03/2018 Comp Metabolic Yju481 A/G Ratio 1.7 Ratio 04/03/2018 Comp Metabolic Wdk064 Osmo 276 mOsmo 04/03/2018 Cbc With Differential [...] 42.3 % 04/03/2018 Cbc With Differential Ord2 [place]% 8.6 % 04/03/2018 Cbc With Differential Ord2 [...] 4.67 K/ul 04/03/2018 Cbc With Differential Ord2 [place] ABS# 1.0 K/ul 04/03/2018 Cbc With Differential Ord2 Eos ABS# 0.1 K/ul 04/03/2018 Cbc With Differential Ord2 Baso ABS# 0.0 K/ul 04/03/2018 Vitamin D 25 Oh Luv1653 VITAMIN D, 25 HYDROXY 34.42 ng/mL Cbc [...] 94.9 fl 01/13/2017 Cbc With Differential Ord2 [place]% 6.7 % 01/13/2017 Cbc With Differential Ord2 [...] 2.96 K/ul 01/13/2017 Cbc With Differential Ord2 [place] ABS# 0.5 K/ul 01/13/2017 Cbc With Differential Ord2 Eos ABS# 0.2 K/ul 01/13/2017 Cbc With Differential Ord2 Baso ABS# 0.0 K/ul 01/13/2017 B12 Jye114 B12 562.00 pg/ml 01/13/2017 Elle Reflex Profile [id number] ELLE (ARVIND) SCREEN NONE DETECTED 04/17/2016 Cbc [...] 30.8 pg 04/13/2016 Cbc With Differential Ord2 [place]% 6.7 % 04/13/2016 Cbc With Differential Ord2 [...] 3.86 K/ul 04/13/2016 Cbc With Differential Ord2 [place] ABS# 0.6 K/ul 04/13/2016 Cbc With Differential Ord2 Eos ABS# 0.1 K/ul 04/13/2016 Cbc With Differential Ord2 Baso ABS# 0.0 K/ul 04/13/2016 Ra Factor Esx210 RA FACTOR <10 IU/ml 04/13/2016 Comp Metabolic Woz670 NA 138 mEq/L 04/13/2016 Comp Metabolic Yis645 K 3.7 mEq/L 04/13/2016 Comp Metabolic Wqu738 CL 104 mEq/L 04/13/2016 Comp Metabolic Emm795 CO2 25.0 mEq/L 04/13/2016 Comp Metabolic Iys702 ANION GAP 13 04/13/2016 Comp Metabolic Vxt632 GLUCOSE 146 mg/dL 04/13/2016 Comp Metabolic Zpz411 Creat 0.9 mg/dL 04/13/2016 Comp Metabolic Kll349 eGFR 69 ml/min/1.73m2 04/13/2016 Comp Metabolic Cje950 BUN 14 mg/dL 04/13/2016 Comp Metabolic Cvk599 B/C Ratio 16.5 Ratio 04/13/2016 Comp Metabolic Ksc352 CALCIUM 9.5 mg/dL 04/13/2016 Comp Metabolic Ncf461 ALK PHOS 107 U/L 04/13/2016 Comp Metabolic Wej476 AST(SGOT) 16 U/L 04/13/2016 Comp Metabolic Git517 ALT(SGPT) 17 U/L 04/13/2016 Comp Metabolic Cmq116 BILI T 0.2 mg/dL 04/13/2016 Comp Metabolic Smh209 ALBUMIN 4.0 g/dL 04/13/2016 Comp Metabolic Lrf055 TPRO 6.6 g/dL 04/13/2016 Comp Metabolic Uij910 GLOB 2.6 g/dL 04/13/2016 Comp Metabolic Uit030 A/G Ratio 1.5 Ratio 04/13/2016 Comp Metabolic Zss344 Osmo 279 mOsmo 04/13/2016 Sed Rate Ord21 ESR 36 mm/hr 04/13/2016 Uric Acid Ord77 Uric A 6.7 mg/dL 04/13/2016 C-Reactive Protein Qnt Crqnt CRP 1.3 mg/dl 04/13/2016 Vitamin D 25 Oh Lky6053 VITAMIN D, 25 HYDROXY 49.37 ng/mL Comp Metabolic Kiy360 NA 136 mEq/L 02/24/2016 Comp Metabolic Qog103 K 4.2 mEq/L 02/24/2016 Comp Metabolic Xji663 CL 98 mEq/L 02/24/2016 Comp Metabolic Dqa832 CO2 30.0 mEq/L 02/24/2016 Comp Metabolic Muf235 ANION GAP 12 02/24/2016 Comp Metabolic Iac505 GLUCOSE 115 mg/dL 02/24/2016 Comp Metabolic Vne343 Creat 0.9 mg/dL 02/24/2016 Comp Metabolic Sly157 eGFR 67 ml/min/1.73m2 02/24/2016 Comp Metabolic Kko480 BUN 22 mg/dL 02/24/2016 Comp Metabolic Pwd109 B/C Ratio 25.3 Ratio 02/24/2016 Comp Metabolic Ehr505 CALCIUM 9.8 mg/dL 02/24/2016 Comp Metabolic Bjv695 ALK PHOS 124 U/L 02/24/2016 Comp Metabolic Hfc797 AST(SGOT) 19 U/L 02/24/2016 Comp Metabolic Jhr043 ALT(SGPT) 18 U/L 02/24/2016 Comp Metabolic Iwy092 BILI T 0.4 mg/dL 02/24/2016 Comp Metabolic Jwm732 ALBUMIN 4.6 g/dL 02/24/2016 Comp Metabolic Dzn225 TPRO 7.8 g/dL 02/24/2016 Comp Metabolic Rgl772 GLOB 3.3 g/dL 02/24/2016 Comp Metabolic Ard808 A/G Ratio 1.4 Ratio 02/24/2016 Comp Metabolic Ukg602 Osmo 276 mOsmo 02/24/2016 Sed Rate Ord21 [...] 92.0 fl 02/24/2016 Cbc With Differential Ord2 [place]% 6.8 % 02/24/2016 Cbc With Differential Ord2 [...] 4.53 K/ul 02/24/2016 Cbc With Differential Ord2 [place] ABS# 0.7 K/ul 02/24/2016 Cbc With Differential [...] 48.4 % 10/31/2015 Cbc With Differential Ord2 [place]% 7.2 % 10/31/2015 Cbc With Differential Ord2 [...] 3.41 K/ul 10/31/2015 Cbc With Differential Ord2 [place] ABS# 0.5 K/ul 10/31/2015 Cbc With Differential Ord2 Eos ABS# 0.2 K/ul 10/31/2015 Cbc With Differential Ord2 Baso ABS# 0.0 K/ul 10/31/2015 Cbc With Differential Ord2 New Analyzer Notice Please note new ref ranges starting 10-15-2015 due to implemntation of new five part differential hematolgy analyzer. 10/31/2015 Vitamin D 25 Oh Qbr5534 VITAMIN D, 25 HYDROXY 33.87 ng/mL Tsh Ord6 hTSH II 4.37 uIU/mL 10/31/2015 Lipid Ord30 CHOL 168 mg/dL 10/31/2015 Lipid Ord30 HDL 30.0 mg/dl 10/31/2015 Lipid Ord30 TRIG 293 mg/dL 10/31/2015 Lipid Ord30 LDL 79 mg/dL 10/31/2015 Lipid Ord30 C/HDL 5.6 Ratio 10/31/2015 B12 Tny942 B12 327.00 pg/ml 10/31/2015 Comp Metabolic Suz834 NA 140 mEq/L 10/31/2015 Comp Metabolic Gsw942 K 4.0 mEq/L 10/31/2015 Comp Metabolic Bxm339 CL 103 mEq/L 10/31/2015 Comp Metabolic Tiw273 CO2 29.0 mEq/L 10/31/2015 Comp Metabolic Cqe716 ANION GAP 12 10/31/2015 Comp Metabolic Doj158 GLUCOSE 104 mg/dL 10/31/2015 Comp Metabolic Thc542 Creat 0.9 mg/dL 10/31/2015 Comp Metabolic Qcf010 eGFR 62 ml/min/1.73m2 10/31/2015 Comp Metabolic Uwk556 BUN 13 mg/dL 10/31/2015 Comp Metabolic Wwv732 B/C Ratio 13.8 Ratio 10/31/2015 Comp Metabolic Saf162 CALCIUM 9.5 mg/dL 10/31/2015 Comp Metabolic Dmp679 ALK PHOS 102 U/L 10/31/2015 Comp Metabolic Suj953 AST(SGOT) 19 U/L 10/31/2015 Comp Metabolic Fqx042 ALT(SGPT) 17 U/L 10/31/2015 Comp Metabolic Oto764 BILI T 0.3 mg/dL 10/31/2015 Comp Metabolic Dup579 ALBUMIN 4.1 g/dL 10/31/2015 Comp Metabolic Rbd227 TPRO 6.8 g/dL 10/31/2015 Comp Metabolic Ukq686 GLOB 2.7 g/dL 10/31/2015 Comp Metabolic Eej122 A/G Ratio 1.5 Ratio 10/31/2015 Comp Metabolic Qsl945 Osmo 280 mOsmo 10/31/2015 GFR CALC 3779898 GFR AA 59.0L ML/MIN 02/28/2015 GFR CALC 3530199 GFR NON-AA 49.0L ML/MIN 02/28/2015 CHEM 14 20280406 AST 19 U/L 02/28/2015 CHEM 14 20280406 ALT 15 IU/L 02/28/2015 CHEM 14 20280406 BUN 16 MG/DL 02/28/2015 CHEM 14 20280406 ALBUMIN 4.7 GM/DL 02/28/2015 CHEM 14 20280406 CHLORIDE 99 MMOL/L 02/28/2015 CHEM 14 20280406 BILI TOT 0.5 MG/DL 02/28/2015 CHEM 14 [id number] ALK PHOS 111 U/L 02/28/2015 CHEM 14 20280406 SODIUM 135 MMOL/L 02/28/2015 CHEM 14 1850162 CREATININE 1.10 MG/DL 02/28/2015 CHEM 14 7638120 CALCIUM 10.1 MG/DL 02/28/2015 CHEM 14 4159493 POTASSIUM 4.0 MMOL/L 02/28/2015 CHEM 14 3794261 PROT TOT 8.2 GM/DL 02/28/2015 CHEM 14 7239769 GLUCOSE 123 MG/DL 02/28/2015 CHEM 14 0777153 BICARB 29 MMOL/L 02/28/2015 CHEM 14 6401063 ANION GAP 7 MEQ/L 02/28/2015 LIPID GRP [...] TEST LDL 140 MG/DL 11/11/2014 LIPID GRP [id number] CHOL 209 MG/DL 11/11/2014 LIPID GRP RCHOL/HDL 6.15 RATIO 11/11/2014 LIPID GRP NON-HDL CH 175 MG/DL 11/11/2014 CBC 2558818 WBC 6.6 10e9/L 11/11/2014 CBC 0047058 RBC 4.89 10e12/L 11/11/2014 CBC 8484908 HGB 15.2 g/dL 11/11/2014 CBC 2305354 HCT DET 45.2 % 11/11/2014 CBC 6739770 MCV 92.4 fL 11/11/2014 CBC 0153868 MCH 31.1 pg 11/11/2014 CBC 9427155 MCHC 33.6 g/dL 11/11/2014 CBC 4296758 PLT 275 10e9/L 11/11/2014 CBC 8853302 MPV 10.1 fL 11/11/2014 CBC 2980436 RC % 43.7 % 11/11/2014 CBC 5787774 LY % 46.5 % 11/11/2014 CBC 8365832 MON % 7.2 % 11/11/2014 CBC 9321684 EOS % 2.0 % 11/11/2014 CBC 7396822 BASO % 0.6 % 11/11/2014 CBC 0526169 RDW 13.3 % 11/11/2014 CBC 0575968 ABS RC 2.88 10e9/L 11/11/2014 CBC 9934473 ABS LYMPH 3.07 10e9/L 11/11/2014 CBC 4254979 ABS MONO 0.48 10e9/L 11/11/2014 CBC 5149778 ABS EOS 0.13 10e9/L 11/11/2014 CBC 3419603 ABS BASO 0.04 10e9/L 11/11/2014 CBC 9310515 RDW-SD 44.1 fL 11/11/2014 CHEM 14 5529996 AST 20 U/L 11/11/2014 CHEM 14 0711322 ALT 14 IU/L 11/11/2014 CHEM 14 4734192 BUN 13 MG/DL 11/11/2014 CHEM 14 1951362 ALBUMIN 4.4 GM/DL 11/11/2014 CHEM 14 5595810 CHLORIDE 104 MMOL/L 11/11/2014 CHEM 14 8796383 BILI TOT 0.3 MG/DL 11/11/2014 CHEM 14 7950901 ALK PHOS 113 U/L 11/11/2014 CHEM 14 9574098 SODIUM 140 MMOL/L 11/11/2014 CHEM 14 1520684 CREATININE 0.98 MG/DL 11/11/2014 CHEM 14 1858614 CALCIUM 9.6 MG/DL 11/11/2014 CHEM 14 5098965 POTASSIUM 3.9 MMOL/L 11/11/2014 CHEM 14 2875389 PROT TOT 7.5 GM/DL 11/11/2014 CHEM 14 4829904 GLUCOSE 102 MG/DL 11/11/2014 CHEM 14 7071843 BICARB 28 MMOL/L 11/11/2014 CHEM 14 4857010 ANION GAP 8 MEQ/L 11/11/2014 GFR CALC 8717321 GFR AA >60 ML/MIN 11/11/2014 GFR CALC 5518763 GFR NON-AA 55.0L ML/MIN 11/11/2014 TSH 2885788 TSH 2.055 uIU/ML 11/11/2014 TSH 8283262 TSH 2.956 uIU/ML 12/04/2013 A1C HPLC 5626774 A1C HPLC 89012-4 5.4 % 12/04/2013 GFR CALC 5107931 GFR AA >60 ML/MIN 12/04/2013 GFR CALC 9413639 GFR NON-AA 57.0L ML/MIN 12/04/2013 CBC 2853273 WBC 7.2 10e9/L 12/04/2013 CBC 0154458 RBC 4.98 10e12/L 12/04/2013 CBC 0468437 HGB 15.8 g/dL 12/04/2013 CBC 3179670 HCT DET 46.0 % 12/04/2013 CBC 5375141 MCV 92.4 fL 12/04/2013 CBC 1357577 MCH 31.7 pg 12/04/2013 CBC 5728763 MCHC 34.3 g/dL 12/04/2013 CBC 7406107 PLT 266 10e9/L 12/04/2013 CBC 2384822 MPV 9.9 fL 12/04/2013 CBC 2625336 RC % 49.1 % 12/04/2013 CBC 0966611 LY % 41.9 % 12/04/2013 CBC 1480891 MON % 6.5 % 12/04/2013 CBC 6677156 EOS % 1.8 % 12/04/2013 CBC 4440962 BASO % 0.7 % 12/04/2013 CBC 3896947 RDW 13.3 % 12/04/2013 CBC 8496674 ABS RC 3.54 10e9/L 12/04/2013 CBC 2683813 ABS LYMPH 3.02 10e9/L 12/04/2013 CBC 8235684 ABS MONO 0.47 10e9/L 12/04/2013 CBC 9058603 ABS EOS 0.13 10e9/L 12/04/2013 CBC 5895423 ABS BASO 0.05 10e9/L 12/04/2013 CBC 6027522 RDW-SD 44.0 fL 12/04/2013 VIT D TOTL 4639247 VIT D TOTL 29 NG/ML 12/04/2013 LIPID GRP HDL TEST 33 MG/DL 12/04/2013 LIPID GRP TRIG 291 MG/DL 12/04/2013 LIPID GRP TEST LDL 124 MG/DL 12/04/2013 LIPID GRP CHOL 215 MG/DL 12/04/2013 LIPID GRP RCHOL/HDL 6.52 RATIO 12/04/2013 CHEM 14 4569097 AST 20 U/L 12/04/2013 CHEM 14 5583482 ALT 18 IU/L 12/04/2013 CHEM 14 7730402 BUN 13 MG/DL 12/04/2013 CHEM 14 8031512 ALBUMIN 4.5 GM/DL 12/04/2013 CHEM 14 2596667 CHLORIDE 104 MMOL/L 12/04/2013 CHEM 14 4336762 BILI TOT 0.3 MG/DL 12/04/2013 CHEM 14 8325303 ALK PHOS 92 U/L 12/04/2013 CHEM 14 3799194 SODIUM 140 MMOL/L 12/04/2013 CHEM 14 2332483 CREATININE 0.96 MG/DL 12/04/2013 CHEM 14 1158850 CALCIUM 9.8 MG/DL 12/04/2013 CHEM 14 1706400 POTASSIUM 4.2 MMOL/L 12/04/2013 CHEM 14 1382912 PROT TOT 7.1 GM/DL 12/04/2013 CHEM 14 6620133 GLUCOSE 111 MG/DL 12/04/2013 CHEM 14 4463791 BICARB 27 MMOL/L 12/04/2013 CHEM 14 2459155 ANION GAP 9 MEQ/L 12/04/2013 CHEM 14 6272074 AST 19 U/L 07/02/2013 CHEM 14 1838565 ALT 20 IU/L 07/02/2013 CHEM 14 5902924 BUN 17 MG/DL 07/02/2013 CHEM 14 2728821 ALBUMIN 4.9 GM/DL 07/02/2013 CHEM 14 0519269 CHLORIDE 103 MMOL/L 07/02/2013 CHEM 14 5475219 BILI TOT 0.3 MG/DL 07/02/2013 CHEM 14 5704524 ALK PHOS 108 U/L 07/02/2013 CHEM 14 7211015 SODIUM 139 MMOL/L 07/02/2013 CHEM 14 8040078 CREATININE 1.01 MG/DL 07/02/2013 CHEM 14 6265182 CALCIUM 10.1 MG/DL 07/02/2013 CHEM 14 2469137 POTASSIUM 4.2 MMOL/L 07/02/2013 CHEM 14 7525514 PROT TOT 7.5 GM/DL 07/02/2013 CHEM 14 2153897 GLUCOSE 94 MG/DL 07/02/2013 CHEM 14 3339229 BICARB 29 MMOL/L 07/02/2013 CHEM 14 5294884 ANION GAP 7 MEQ/L 07/02/2013 CBC 3561824 WBC 11.1 10e9/L 07/02/2013 CBC 2027072 RBC 5.08 10e12/L 07/02/2013 CBC 4519186 HGB 16.1 g/dL 07/02/2013 CBC 0900980 HCT DET 46.6 % 07/02/2013 CBC 4870325 MCV 91.7 fL 07/02/2013 CBC 3433603 MCH 31.7 pg 07/02/2013 CBC 8015299 MCHC 34.5 g/dL 07/02/2013 CBC 8156019 PLT 287 10e9/L 07/02/2013 CBC 7255307 MPV 9.6 fL 07/02/2013 CBC 2073240 RC % 56.1 % 07/02/2013 CBC 5445837 LY % 35.3 % 07/02/2013 CBC 8065837 MON % 7.1 % 07/02/2013 CBC 8706961 EOS % 1.2 % 07/02/2013 CBC 8158913 BASO % 0.3 % 07/02/2013 CBC 3990766 RDW 14.1 % 07/02/2013 CBC 4118433 ABS RC 6.23 10e9/L 07/02/2013 CBC 8830459 ABS LYMPH 3.92 10e9/L 07/02/2013 CBC 1584475 ABS MONO 0.79 10e9/L 07/02/2013 CBC 7835012 ABS EOS 0.13 10e9/L 07/02/2013 CBC 0247383 ABS BASO 0.03 10e9/L 07/02/2013 CBC 6808307 RDW-SD 46.1 fL 07/02/2013 VIT B 12 7150551 VIT B 12 672 PG/ML 07/02/2013 GFR CALC 7718437 GFR AA >60 ML/MIN 07/02/2013 GFR CALC 5794396 GFR NON-AA 54.0L ML/MIN 07/02/2013 FREE T4 6163003 FREE T4 1.09 NG/DL 07/02/2013 TSH 3644311 TSH 1.599 uIU/ML 07/02/2013 VIT D TOTL 0287045 VIT D TOTL 29 NG/ML 07/02/2013 A1C HPLC 3656479 A1C HPLC 50417-1 5.9 % 12/06/2012 LIPID GRP HDL TEST 28 MG/DL 12/05/2012 LIPID GRP 4412754 TRIG 237 MG/DL 12/05/2012 LIPID GRP TEST LDL 98 MG/DL 12/05/2012 LIPID GRP CHOL 173 MG/DL 12/05/2012 LIPID GRP RCHOL/HDL 6.18 RATIO 12/05/2012 VIT D TOTL 1568580 VIT D TOTL 16 NG/ML 12/05/2012 CBC 3235354 WBC 8.0 10e9/L 12/05/2012 CBC 4777081 RBC 4.83 10e12/L 12/05/2012 CBC 6212102 HGB 15.1 g/dL 12/05/2012 CBC 4268915 HCT DET 44.0 % 12/05/2012 CBC 1645247 MCV 91.1 fL 12/05/2012 CBC 2790310 MCH 31.3 pg 12/05/2012 CBC 8131088 MCHC 34.3 g/dL 12/05/2012 CBC 1675223 PLT 260 10e9/L 12/05/2012 CBC 7896271 MPV 10.0 fL 12/05/2012 CBC 9470756 RC % 41.9 % 12/05/2012 CBC 8986314 LY % 48.1 % 12/05/2012 CBC 5607536 MON % 7.6 % 12/05/2012 CBC 0632549 EOS % 1.9 % 12/05/2012 CBC 5216794 BASO % 0.5 % 12/05/2012 CBC 5557072 RDW 13.4 % 12/05/2012 CBC 6511496 ABS RC 3.35 10e9/L 12/05/2012 CBC 3386330 ABS LYMPH 3.85 10e9/L 12/05/2012 CBC 0917933 ABS MONO 0.61 10e9/L 12/05/2012 CBC 4995491 ABS EOS 0.15 10e9/L 12/05/2012 CBC 9455849 ABS BASO 0.04 10e9/L 12/05/2012 CBC 5815427 RDW-SD 43.4 fL 12/05/2012 CHEM 14 8394423 AST 21 U/L 12/05/2012 CHEM 14 8484754 ALT 24 IU/L 12/05/2012 CHEM 14 5751999 BUN 14 MG/DL 12/05/2012 CHEM 14 8076323 ALBUMIN 4.3 GM/DL 12/05/2012 CHEM 14 2708738 CHLORIDE 106 MMOL/L 12/05/2012 CHEM 14 2640353 BILI TOT 0.4 MG/DL 12/05/2012 CHEM 14 5301321 ALK PHOS 102 U/L 12/05/2012 CHEM 14 4809121 SODIUM 141 MMOL/L 12/05/2012 CHEM 14 6907954 CREATININE 0.96 MG/DL 12/05/2012 CHEM 14 2953606 CALCIUM 9.8 MG/DL 12/05/2012 CHEM 14 1834419 POTASSIUM 4.1 MMOL/L 12/05/2012 CHEM 14 20280406 PROT TOT 6.8 GM/DL 12/05/2012 CHEM 14 5591167 GLUCOSE 107 MG/DL 12/05/2012 CHEM 14 3056560 BICARB 28 MMOL/L 12/05/2012 CHEM 14 0589698 ANION GAP 7 MEQ/L 12/05/2012 FERRITIN 4796658 FERRITIN 151 NG/ML 12/05/2012 MAGNESIUM 0916608 MAGNESIUM 1.6 MEQ/L 12/05/2012 CRP 3403267 CRP 0.6 MG/DL 12/05/2012 FOLIC ACID 7342137 FOLIC ACID 12.2 NG/ML 12/05/2012 VIT B 12 3934853 VIT B 12 389 PG/ML 12/05/2012 TSH 1707111 TSH 3.097 uIU/ML 12/05/2012 GFR CALC 6005924 GFR AA >60 ML/MIN 12/05/2012 GFR CALC 7256158 GFR NON-AA 57.0L ML/MIN 12/05/2012 %SAT/TIBC 1366725 TIBC 305 UG/DL 12/05/2012 %SAT/TIBC 1745516 % SATURAT 25 % 12/05/2012 %SAT/TIBC 9503878 UIBC 229 MCG/DL 12/05/2012 ESR 3050309 ESR 14 MM/HR 12/05/2012 IRON TEST 4797057 IRON TEST 76 UG/DL 12/05/2012 UA 54887 Specific [place] 1.030 DateTime(Free Text in ) UA 26050 PH 5.0 DateTime(Free Text in ) UA 51025 GLUCOSE neg DateTime(Free Text in Aprima) UA 36369 Protein neg DateTime(Free Text in Janima) UA 58709 Blood neg DateTime(Free Text in Janima) UA 40335 Bilirubin neg DateTime(Free Text in Janima) UA 49429 Ketones neg DateTime(Free Text in Janima) UA 45026 Urobilinogen neg DateTime(Free Text in Aprima) UA 07878 Nitrite neg DateTime(Free Text in Janima) UA 30741 Leukocytes trace DateTime(Free Text in ) Review [...] nourished 04/03/2018 None Full Exam - General 1994 Eyes conjunctiva /eyelids Overall: eyelids normal 04/03/2018 None Full Exam - General 1994 Eyes conjunctiva /eyelids Overall: cornea clear 04/03/2018 None Full Exam - General 1995 Eyes conjunctiva /eyelids Overall: conjunctiva clear 04/03/2018 None Full Exam - General 1995 Ears/Nose/Throat lips/teeth/gingiva Overall: benign lips 04/03/2018 None Full Exam - General 1995 [...] 1995 Ears/Nose/Throat oral cavity/pharynx/larynx Overall: hypopharynx benign 12/04/2013 [...] age 1007/16/2013 None Full Exam - General 1995 Constitutional general appearance Development: well developed 07/16/2013 None Full Exam - General 1994 Constitutional general appearance Hygiene/Attention to Grooming: good hygiene 07/16/2013 None Full Exam - General 1995 Eyes conjunctiva /eyelids Overall: conjunctiva clear 07/16/2013 None Full Exam - General 1995 Eyes conjunctiva /eyelids Overall: cornea clear 07/16/2013 [...] abnormalities 07/16/2013 None Full Exam - General 1995 Neurologic deep tendon reflexes Overall: deep tendon reflexes intact 07/16/2013 None Full Exam - General 1994 Neurologic cranial nerves Overall: crainial nerves 2 - 12 grossly intact 07/16/2013 None Full Exam - General 1994 Psychiatric orientation/consciousness Overall: oriented to person, place and time 07/16/2013 None Full Exam - General 1995 Psychiatric mood and affect Overall: normal mood [...] rate 07/02/2013 None Full Exam - General 1995 Cardiovascular extremities Overall: no clubbing 07/02/2013 None [...] sounds 07/02/2013 None Full Exam - General 1995 Lymphatic [...] General 1995 Cardiovascular auscultation of heart Overall: no murmurs 11/30/2012 None Full Exam - General 1995 Abdomen abdominal exam Overall: no tenderness 11/30/2012 None Full Exam - General 1995 Abdomen [...] accomodation 11/30/2012 None Full Exam - General 1995 [...] CPT-4: J3301 12/12/2014 THER/PROPH/DIAG INJ SC/IM CPT-4: 91883 12/12/2014 FLU VACC 4 CECILIA 3 YRS PLUS IM SNOMED CT: 91367839 CPT-4: 72885 07/03/2014 ADMIN INFLUENZA VIRUS VAC Assigned to/Lorraine White CPT-4: [id number] 07/03/2014 ROUTINE VENIPUNCTURE CPT-4: 00170 12/04/2013 TRIAMCINOLONE ACET INJ NOS CPT-4: J3301 12/04/2013 THER/PROPH/DIAG INJ SC/IM CPT-4: 72764 12/04/2013 ROUTINE VENIPUNCTURE CPT-4: 34531 07/02/2013 THER/PROPH/DIAG INJ SC/IM CPT-4: 97533 07/02/2013 PROMETHAZINE HCL INJECTION CPT-4: J2550 07/02/2013 PRESCRIP TRANSMIT VIA ERX SY CPT-4: G8553 07/02/2013 TRIAMCINOLONE ACET INJ NOS CPT-4: J3301 06/18/2013 THER/PROPH/DIAG INJ SC/IM CPT-4: 64440 06/18/2013 URINALYSIS NONAUTO W/O SCOPE CPT-4: 06414 06/18/2013 PRESCRIP TRANSMIT VIA ERX SY CPT-4: G8553 06/18/2013 VITAMIN B12 INJECTION CPT-4: J3420 02/15/2013 PRESCRIP TRANSMIT VIA ERX SY CPT-4: G8553 02/15/2013 ROUTINE VENIPUNCTURE CPT-4: 14668 12/05/2012 PRESCRIP TRANSMIT VIA ERX SY CPT-4: G8553 11/30/2012 Vital Signs Date Vital 07/06/2018 Blood Pressure 1: 140/78 Code : 8480-6 BMI: 29.3 Code : 63393-0 Heart Rate 1 : 71 bpm Height: 5'5" SpO2: 97% Weight: 176 lbs 06/07/2018 Blood Pressure 1: 134/64 Code : 8480-6 BMI: 29.3 Code : 40647-1 Heart Rate 1 : 96 bpm Height: 5'5" SpO2: 95% Weight: 176 lbs 04/28/2018 Blood Pressure 1: 128/74 Code : 8480-6 BMI: 29.8 Code : 30060-4 Heart Rate 1 : 70 bpm Height: 5'5" SpO2: 98% Weight: 179 lbs 04/03/2018 Blood Pressure 1: 130/72 Code : 8480-6 Heart Rate 1: 84 bpm Height: SpO2: 98% Weight: 10/18/2017 Blood Pressure 1: 134/84 Code : 8480-6 BMI: 29.0 Code : 80567-5 Heart Rate 1 : 71 bpm Height: 5'5" SpO2: 98% Weight: 174 lbs 08/31/2017 Blood Pressure 1: 134/76 Code : 8480-6 BMI: 29.5 Code : 07381-9 Heart Rate 1 : 78 bpm Height: 5'5" SpO2: 96% Weight: 177 lbs 06/21/2017 Blood Pressure 1: 136/82 Code : 8480-6 BMI: 29.6 Code : 83913-2 Heart Rate 1 : 76 bpm Height: 5'5" SpO2: 98% Weight: 178 lbs 06/14/2017 Blood Pressure 1: 132/74 Code : 8480-6 BMI: 29.0 Code : 33091-4 Heart Rate 1 : 71 bpm Height: 5'5" SpO2: 97% Weight: 174 lbs 05/13/2017 Blood Pressure 1: 122/80 Code : 8480-6 BMI: 29.6 Code : 59545-7 Heart Rate 1 : 88 bpm Height: 5'5" SpO2: 97% Temperature: 37.1 (C) / 98.7 (F) Weight: 178 lbs 11/30/2016 Blood Pressure 1: 136/70 Code : 8480-6 BMI: 31.6 Code : 24758-2 Heart Rate 1 : 74 bpm Height: 5'5" SpO2: 96% Weight: 190 lbs 11/16/2016 Blood Pressure 1: 124/76 Code : 8480-6 BMI: 32.1 Code : 86888-4 Heart Rate 1 : 94 bpm Height: 5'5" SpO2: 97% Weight: 193 lbs 06/10/2016 Blood Pressure 1: 128/86 Code : 8480-6 BMI: 30.3 Code : 22989-2 Heart Rate 1 : 88 bpm Height: 5'5" SpO2: 98% Weight: 182 lbs 04/13/2016 Blood Pressure 1: 102/56 Code : 8480-6 BMI: 30.5 Code : 88678-0 Heart Rate 1 : 63 bpm Height: 5'5" SpO2: 94% Weight: 183 lbs 03/22/2016 Blood Pressure 1: 138/78 Code : 8480-6 BMI: 30.5 Code : 50342-2 Heart Rate 1 : 63 bpm Height: 5'5" SpO2: 97% Weight: 183 lbs 03/02/2016 Blood Pressure 1: 122/72 Code : 8480-6 BMI: 30.8 Code : 78221-4 Heart Rate 1 : 71 bpm Height: 5'5" SpO2: 97% Weight: 185 lbs 02/23/2016 Blood Pressure 1: 146/86 Code : 8480-6 BMI: 30.3 Code : 40537-1 Heart Rate 1 : 100 bpm Height: 5'5" SpO2: 98% Weight: 182 lbs 01/09/2016 Blood Pressure 1: 138/74 Code : 8480-6 BMI: 31.6 Code : 69901-1 Heart Rate 1 : 83 bpm Height: 5'5" SpO2: 95% Weight: 190 lbs 12/09/2015 Blood Pressure 1: 140/70 Code : 8480-6 BMI: 30.5 Code : 08658-3 Heart Rate 1 : 73 bpm Height: 5'5" SpO2: 93% Weight: 183 lbs 11/14/2015 Blood Pressure 1: 174/84 Code : 8480-6 Blood Pressure 1: 156/84 Code: 8480-6 BMI: 31.6 Code: 61320-4 Heart Rate 1: 70 bpm Height: 5'5" SpO2: 97% Weight: 190 lbs 10/31/2015 Blood Pressure 1: 138/80 Code : 8480-6 BMI: 31.5 Code : 24699-9 Heart Rate 1 : 82 bpm Height: 5'5" SpO2: 98% Weight: 189 lbs 12/12/2014 Blood Pressure 1: 150/80 Code : 8480-6 BMI: 30.1 Code : 00651-2 Heart Rate 1 : 68 bpm Height: 5'5" Weight: 181 lbs 11/11/2014 Blood Pressure 1: 132/84 Code : 8480-6 BMI: 31.0 Code : 62450-0 Heart Rate 1 : 72 bpm Height: 5'5" Weight: 186 lbs 07/03/2014 Blood Pressure 1: 128/88 Code : 8480-6 BMI: 31.8 Code : 73022-7 Heart Rate 1 : 84 bpm Height: 5'5" SpO2: 96% Weight: 191 lbs 12/04/2013 Blood Pressure 1: 124/90 Code : 8480-6 BMI: 31.5 Code : 84443-2 Heart Rate 1 : 84 bpm Height: 5'5" Weight: 189 lbs 11/13/2013 Blood Pressure 1: 124/78 Code : 8480-6 BMI: 31.5 Code : 99930-5 Heart Rate 1 : 72 bpm Height: 5'5" Weight: 189 lbs 07/16/2013 Blood Pressure 1: 136/82 Code : 8480-6 BMI: 31.0 Code : 75055-2 Heart Rate 1 : 80 bpm Height: 5'5" Weight: 186 lbs 07/02/2013 Blood Pressure 1: 118/84 Code : 8480-6 BMI: 30.1 Code : 52129-7 Heart Rate 1 : 84 bpm Height: 5'5" SpO2: 98% Temperature: 36.3 (C) / 97.3 (F) Weight: 181 lbs 06/18/2013 Blood Pressure 1: 134/80 Code : 8480-6 BMI: 30.5 Code : 96137-8 Heart Rate 1 : 80 bpm Height: 5'5" Temperature: 36.1 (C) / 97.0 (F) Weight: 183 lbs 02/15/2013 Blood Pressure 1: 136/82 Code : 8480-6 BMI: 30.6 Code : 07301-1 Heart Rate 1 : 84 bpm Height: 5'5" Respiratory Rate: 16 bpm Weight: 184 lbs 12/15/2012 Blood Pressure 1: 140/78 Code : 8480-6 BMI: 31.5 Code : 50391-9 Heart Rate 1 : 68 bpm Height: 5'5" Weight: 189 lbs 11/30/2012 Blood Pressure 1: 132/70 Code : 8480-6 BMI: 31.7 Code : 11619-4 Heart Rate 1 : 84 bpm Height: [...] 02/15/2013 None depression Quality worsening 02/15/2013 thinks sofiya isn't working dyspepsia Severity severe 02/15/2013 None [...] R53.83] Diagnosis: Dysphonia[ICD10: R49.0] Cydney Sheridan MD, [facility] CPT-4: 90508 07/06/2018 76204 EST. PATIENT, LEVEL III Diagnosis: Low back pain[ICD10: M54.5] Diagnosis: Pain in right leg[ICD10: M79.604] Diagnosis: Paresthesia of skin[ICD10: R20.2] Cydney Sheridan MD, [facility] CPT -4: 57738 06/07/2018 01123 EST. PATIENT, LEVEL III Diagnosis: Trochanteric bursitis, right hip[ICD10: M70.61] Cydney Sheridan MD, [facility] CPT-4: 54361 04/28/2018 20887 EST. PATIENT, LEVEL III Diagnosis: Dizziness and giddiness[ICD10: R42] Diagnosis: Localized edema[ICD10: R60.0] Diagnosis: Other psoriasis[ICD10: L40.8] Cydney Sheridan MD, [facility] CPT-4 : 38017 04/03/2018 20845 EST. PATIENT, LEVEL III Diagnosis: Generalized anxiety disorder[ICD10: F41.1] Diagnosis: Major depressive disorder, single episode, moderate[ICD10: F32.1] Diagnosis: Other psoriasis[ICD10: L40.8] Diagnosis: Periapical abscess without sinus[ICD10: K04.7] Cydney Sheridan MD, [facility] CPT-4: 47023 10/18/2017 94805 EST. PATIENT, LEVEL III Diagnosis: Gastro-esophageal reflux disease without esophagitis[ICD10: K21.9] Diagnosis: Generalized anxiety disorder[ICD10: F41.1] Diagnosis: Major depressive disorder, single episode, moderate[ICD10: F32.1] Diagnosis: Other psoriasis[ICD10: L40.8] Cydney Sheridan MD, [facility] CPT-4 : 43474 08/31/2017 12579 EST. PATIENT, LEVEL III Diagnosis: Gastro-esophageal reflux disease without esophagitis[ICD10: K21.9] Diagnosis: Generalized anxiety disorder[ICD10: F41.1] Diagnosis: Major depressive disorder, single episode, moderate[ICD10: F32.1] Cydney Sheridan MD, [facility] CPT-4: 22386 06/21/2017 91500 EST. PATIENT, LEVEL IV Diagnosis: Other psoriasis[ICD10: L40.8] Diagnosis: Major depressive disorder, single episode, unspecified[ICD10: F32.9] Diagnosis: Other pruritus[ICD10: L29.8] Diagnosis: Gastro-esophageal reflux disease without esophagitis[ICD10: K21.9] Cydney Sheridan MD, [facility] CPT-4: 39883 06/14/2017 ([id number]) 08649 EST. PATIENT, LEVEL IV Diagnosis: Generalized abdominal pain[ICD10: R10.84] Diagnosis: Infectious gastroenteritis and colitis, unspecified[ICD10: A09] Diagnosis: Nausea[ICD10: R11.0] Ingrid Sheridan MD, [facility] CPT-4: 19677 05/13/2017 28538 EST. PATIENT, LEVEL III Diagnosis: Other psoriasis[ICD10: L40.8] Cydney Sheridan MD, [facility] CPT-4 : 44995 11/30/2016 55622 EST. PATIENT, LEVEL IV Diagnosis: Other psoriasis[ICD10: L40.8] Cydney Sheridan MD, [facility] CPT-4 : 16898 11/16/2016 ([id number]) 43724 EST. PATIENT, LEVEL III Diagnosis: Primary generalized (osteo)arthritis[ICD10: M15.0] Diagnosis: Other chronic pain[ICD10: G89.29] Ingrid Sheridan MD, [facility] CPT-4: 44733 06/10/2016 ([id number]) 46881 EST. PATIENT, LEVEL IV Diagnosis: Muscle weakness (generalized)[ICD10: M62.81] Diagnosis: Pain in right hand[ICD10: M79.641] Diagnosis: Pain in left hand[ICD10: M79.642] Diagnosis: Major depressive disorder, single episode, unspecified[ICD10: F32.9] Ingrid Sheridan MD, [facility] CPT-4: 63328 04/13/2016 ([id number]) 16494 EST. PATIENT, LEVEL III Diagnosis: Vitamin D deficiency, unspecified[ICD10: E55.9] Diagnosis: Cellulitis of chest wall[ICD10: L03.313] Abril Sheridan MD, [facility] CPT-4: 30131 03/22/2016 ([id number]) 28364 EST. PATIENT, LEVEL IV Diagnosis: Cellulitis of chest wall[ICD10: L03.313] Diagnosis: Pain in right wrist[ICD10: M25.531] Diagnosis: Muscle weakness (generalized)[ICD10: M62.81] Diagnosis: Major depressive disorder, single episode, unspecified[ICD10: F32.9] Abril Sheridan MD, [facility] CPT-4: 48436 03/02/2016 30268 EST. PATIENT, LEVEL IV Diagnosis: Pain in right wrist[ICD10: M25.531] Diagnosis: Tinea corporis[ICD10: B35.4] Diagnosis: Major depressive disorder, single episode, unspecified[ICD10: F32.9] Diagnosis: Vitamin D deficiency, unspecified[ICD10: E55.9] Cydney Sheridan MD, [facility] CPT-4: 22678 02/23/2016 ([id number]) 63238 EST. PATIENT, LEVEL III Diagnosis: Tinea corporis[ICD10: B35.4] Diagnosis: Pain in right wrist[ICD10: M25.531] Ingrid Sheridan MD, [facility] CPT-4: 87222 01/09/2016 ([id number]) 71602 EST. PATIENT, LEVEL III Diagnosis: Tinea corporis[ICD10: B35.4] Diagnosis: Nausea[ICD10: R11.0] Ingrid Sheridan MD, [facility] CPT-4: 60660 12/09/2015 ([id number]) 88667 EST. PATIENT, LEVEL III Diagnosis: Tinea corporis[ICD10: B35.4] Diagnosis: Rash and other nonspecific skin eruption[ICD10: R21] Ingrid Sheridan MD, [facility] CPT-4: 79100 11/14/2015 ([id number]) 50988 EST. PATIENT, LEVEL IV Diagnosis: Tinea corporis[ICD10: B35.4] Diagnosis: Rash and other nonspecific skin eruption[ICD10: R21] Diagnosis: Major depressive disorder, single episode, unspecified[ICD10: F32.9] Diagnosis: Vitamin B12 deficiency anemia, unspecified[ICD10: D51.9] Diagnosis: Vitamin D deficiency, unspecified[ICD10: E55.9] Diagnosis: Mixed hyperlipidemia[ICD10: E78.2] Ingrid Sheridan MD, [facility] CPT-4: 65720 10/31/2015 ([id number]) 53970 EST. PATIENT, LEVEL III Diagnosis: Biceps tendonitis[ICD9: 726.12] Abril Sheridan MD, [facility] CPT- 4: 32589 12/12/2014 ([id number]) 71742 EST. 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 PATIENT, LEVEL IV Diagnosis: Sleep-disordered breathing[ICD9: 780.59] Diagnosis: Fatigue[ICD9: 780.79] Diagnosis: Diaphoresis[ICD9: 780.8] Diagnosis: Tinea corporis[ICD9: 110.5] Abril Sheridan MD, [facility] CPT- 4: 81915 07/03/2014 ([id number]) 26253 EST. PATIENT, LEVEL IV Diagnosis: HYPERLIPIDEMIA[ICD9: 272.4] Diagnosis: DEPRESSIVE DISORDER NEC[ICD9: 311] Diagnosis: Rash[ICD9: 782.1] Diagnosis: Sciatica[ICD9: 724.3] Abril Sheridan MD, [facility] CPT-4: 85275 12/04/2013 ([id number]) 49573 EST. PATIENT, LEVEL III Diagnosis: Tinea corporis[ICD9: 110.5] Ingrid Sheridan MD, [facility] CPT-4: 67499 11/13/2013 ([id number]) 76961 EST. PATIENT, LEVEL III Diagnosis: ESOPHAGEAL REFLUX[ICD9: 530.81] Diagnosis: Post menopausal syndrome[ICD9: V49.81] Abril Sheridan MD, [facility] CPT-4: 11305 07/16/2013 ([id number]) 81656 EST. PATIENT, LEVEL IV Diagnosis: ESOPHAGEAL REFLUX[ICD9: 530.81] Diagnosis: MALAISE AND FATIGUE[ICD9: 780.79] Diagnosis: Abdominal pain[ICD9: 789.00] Diagnosis: B12 DEFIC ANEMIA NEC[ICD9: 281.1] Abril Sheridan MD, [facility] CPT-4: 97849 07/02/2013 ([id number]) 94196 EST. PATIENT, LEVEL III Diagnosis: Acute back pain[ICD9: 724.5] Diagnosis: Chills[ICD9: 780.64] Diagnosis: Acute oral pain[ICD9: 528.9] Abril Sheridan MD, [facility] CPT- 4: 53088 06/18/2013 [id number] EST. PATIENT, LEVEL IV Diagnosis: ESOPHAGEAL REFLUX[ICD9: 530.81] Diagnosis: VITAMIN D DEFICIENCY[ICD9: 268.9] Diagnosis: Vitamin B12 deficiency[ICD9: 266.2] Diagnosis: Vitamin B12 deficiency (dietary) anemia[ICD9: 281.1] Diagnosis: DEPRESSIVE DISORDER NEC[ICD9: 311] [facility] CPT-4: 10849 02/15/2013 ([id number]) 57716 EST. PATIENT, LEVEL IV Diagnosis: Hyperlipidemia[ICD9: 272.4] Diagnosis: VITAMIN D DEFICIENCY[ICD9: 268.9] Diagnosis: Elevated blood sugar[ICD9: 790.29] Diagnosis: Elevated blood pressure[ICD9: 796.2] Diagnosis: MALAISE AND FATIGUE[ICD9: 780.79] [facility] CPT-4: 82876 12/15/2012 ([id number] 09540 EST. PATIENT, LEVEL III Diagnosis: ESOPHAGEAL REFLUX[ICD9: 530.81] Diagnosis: DEPRESSIVE DISORDER NEC[ICD9: 311] Abril Sheridan MD, [facility] CPT-4: 22427 11/30/2012 Plan of Care Planned Activity Notes [...] as indicated. 07/06/2018 Appointment: Cydney Gilbert WPtel: [address] [place], [place] [id number] [place] (15 min) Moderate 07/06/2018 Patient Education: [...] try [email or web address] 06/07/2018 Appointment: Cydney Gilbert WPtel: [facility] [id number] (15 min) Moderate 06/07/2018 Patient Education: Patient Medication Summary Completed 06/07/2018 Visit Plan: Bursitis - pt to do exercises as directed - stretching, anti-inflammatories to be started after 24 hours, and pt to use heat to the affected sites, pt to call if not improving. 04/28/2018 Appointment: Cydney Gilbert WPtel: [facility] (15 min) Moderate 04/28/2018 Patient Education: Patient [...] warmth, discharge. 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 08/31/2017 App[facility]ment: [phone] (15 min) Moderate 08/31/2017 Patient Education: Patient [...] patient. 06/21/2017 Appointment: Cyd[facility] Gilbert [facility]el[phone] (30 min) Complex 06/21/2017 Patient Education: Patient Medication Summary Completed 06/21/2017 Care Plan: Referral Order SNOMED-CT : [id number] Pending 06/19/2017 Visit Plan: Psoriasis - Defer [...] not improved. 05/13/2017 Appointment: Ingrid Llanes WPtel: [phone] (10 min) Simple 05/13/2017 Patient Education: Patient Medication Summary Completed 05/13/2017 Patient Education: Patient Medication Summary Completed 01/13/2017 Appointment: Abril Sheridan WPtel: [phone] [phone] (15 min) Moderate 12/09/2016 Visit Plan: Psoriasis - symptoms have improved from previous appointment - she is wanting to start Otezla - Spoke with Dr. Woods office on the phone, they are OK with prescribing the medication - appointment date and time given to pt. Pt is to notify clinic with any questions or concerns. 11/30/2016 Appointment: Cydney Gilbert WPtel: [phone] (30 min) Complex 11/30/2016 Patient Education: Patient [...] and pruritus. 11/16/2016 Appointment: Cydney Gilbert [facility]Ptel: [phone] (30 min) Complex 11/16/2016 Patient Education: Patient [...] Obesity Completed 06/10/2016 Appointment: Ingrid Llanes [facility]Ptel[phone] (15 min) Moderate 06/04/2016 Visit Plan: Inflammation of multiple joints including wrists, hands and muscles aches of legs-recheck inflammatory markers plus uric acid, elle, rf-kenlaog injection today in the office-start prednisone taper tomorrow Atbylfhqda-swsdowmc-gr change in medication 04/13/2016 Patient Education: Patient [...] 02/26/2016 Care Plan: Referral Order SNOMED-CT : 176658304 Pending 02/24/2016 Visit Plan: Right wrist pain [...] this patient. 02/23/2016 Appointment: Cydney Gilbert WPtel: [facility] (15 min) Moderate 02/23/2016 Patient Education: Patient Medication Summary Completed 02/23/2016 Patient Education: Obesity Completed 02/23/2016 Appointment: Ingrid Llanes WPtel: [phone] [place] (15 min) Moderate 01/29/2016 Visit Plan: [...] instructed on use-follow up in 2 weeks Njpdcbyxbg-eqxtmazhq-qzt vitamin B12 and folic acid-check labs Hyerlipidemia- check labs 10/31/2015 Appointment: Ingrid Llanes WPtel: [address] [place] [address] (15 min) Moderate 10/31/2015 Patient Education: Patient Medication Summary Completed 10/31/2015 Visit Plan: Biceps tendinitis - pt to do exercises as directed, ant-inflammatories directed to be taken per RX instructions and pt to call if symptoms are not improved. 12/12/2014 Appointment: Abril Sheridan WPtel: [address] [place] [address] Follow up 12/12/2014 Patient Education: Patient Medication Summary Completed 12/12/2014 Appointment: Abril Sheridan WPtel: [address] [place] [address] follow up 12/11/2014 Visit Plan: Hyperlipidemia - [...] for diflucan. 11/11/2014 Appointment: Abril Sheridan WPtel: [facility] [address] Follow up 11/11/2014 Patient Education: Patient Medication Summary Completed 11/11/2014 Care Plan: COMPLETE CBC AUTOMATED LOINC : 23475-0 Ordered 11/11/2014 Appointment: Abril Sheridan WPtel: [address] [place], [place] [phone] [place] Follow up 11/04/2014 Visit Plan: Sleep disordered breathing - recommended appt for sleep apnea evaluation - appt with gallo on 07/16/14 @240pm Tinea - RX sent electronically to the pt's pharmacy. 07/03/2014 Appointment: Abril Sheridan WPtel: [address] [place], [place] [phone] Follow up 07/03/2014 Patient Education: Patient Medication [...] check labs. 12/04/2013 Appointment: Abril Sheridan WPtel: [address] [place], [place] [phone] Other 12/04/2013 Patient Education: Patient Medication Summary Completed 12/04/2013 Visit Plan: Tinea-discussed natural and expected course of this diagnosis and to alert me if symptoms do not follow expected course, or if any worse, RX sent to patient's pharmacy and instructed on use. Patient verbalized understanding of plan. 11/13/2013 Appointment: Ingrid Llanes WPtel: [phone] Other 11/13/2013 Patient Education: Patient Medication Summary Completed 11/13/2013 Appointment: Abril Sheridan WPtel: [address] [place], [place] [phone] Follow up 10/16/2013 Visit Plan: Esophageal Reflux [...] improving. 07/16/2013 Appointment: Abril Sheridan WPtel: [phone] [phone] Follow up 07/16/2013 Patient Education: Patient Medication [...] improve. 07/02/2013 Appointment: Abril Sheridan WPtel: [phone] [phone] Other 07/02/2013 Patient Education: Patient Medication Summary [...] not improving. 06/18/2013 Appointment: Abril Sheridan [facility]Ptel[phone] [place] Other 06/18/2013 Patient Education: Patient Medication Summary Completed 06/18/2013 Appointment: Abril Sheridan WPtel: [phone] [phone] Follow up 03/01/2013 Visit Plan: Esophageal Reflux [...] daily. 02/15/2013 Appointment: Abril Sheridan WPtel: [phone] Follow up 02/15/2013 Patient Education: Patient Medication [...] as well. 12/15/2012 Appointment: Ingrid Llanes WPtel: [phone] Follow up 12/15/2012 Patient Education: Patient Medication [...] current medications. 11/30/2012 Appointment: Abril Sheridan WPtel: [facility]5 [place] [phone] New Patient 11/30/2012 Patient Education: Patient Medication Summary Completed 11/30/2012 Appointment: Abril Sheridan WPtel: [address] [place] [address] New Patient 10/24/2012 [facility] Referral: Raghav Perales Referral Initiated Instructions Comment . Psoriasis Flare - Pt states that she has been seeing Dr. Woods, who wants to start her on Humira - she states that she does not want to start Humira, but has seen commercials for Otezla and she would like to try that - Will discuss with Dr. Sheridan - will send RX for acute flare and pruritus. 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 recommended pt to increase the nystatin powder [...] vitamin d supplementation. Hyperlipidemia - check labs. DIFLUCAN 150MG DAILY X 10 DAYS THEN WEEKLY X 4 WEEKS KEEP GROIN AND BREASTS DRY USE NYSTATIN POWDER 4 TIMES DAILY VITAMIN B12 2000MCG DAILY FOLIC ACID 1MG DAILY . Rash-cultured today in the office-Rx for diflucan and nystatin provided and instructed on use-follow up in 2 weeks Yxathhwher-qngzzpese-mhs vitamin B12 and folic acid-check labs Hyerlipidemia-check labs . Low back pain- pt to consider [...] - if no improvement will try gabapentin . Sleep disordered breathing - recommended appt for sleep apnea evaluation - appt with gallo on 07/16/14 @240pm Tinea - RX sent electronically to the pt's pharmacy. . Low back pain- pt to consider [...] and treat or refer as indicated. . Tinea-continue Diflucan-start clotrimazole as directed Gastroenteritis-symptoms [...] today in the office-start prednisone taper tomorrow Cophfzmfwn-kwpxdffd-sk change in medication . Bursitis - pt [...] if the symptoms are not improving. . Esophageal Reflux - the patient has [...] increase in pain, worsening redness, warmth, discharge. CALL TUESDAY WITH UPDATE . Tinea-discussed natural and expected course of this diagnosis and to alert me if symptoms do not follow expected course, or if any worse, RX sent to patient's pharmacy and instructed on use. Patient verbalized understanding of plan. . Hyperlipidemia - pt has been counseled [...] notify clinic with any questions or concerns. carotid us on a tuesday compression stockings [...] in pain, worsening redness, warmth, discharge. . Back pain - uncertain eitiology - [...] oral infection and call if not improving. pt to start on carafate four times [...] pain is worsening or does not improve. decrease lexapro to 1/2 pill x 2 [...] been appropriately prescribed for this patient. . Arthritis- occasionally uncontrolled symptoms- recommend pt to take antiinflammatory as directed for pain control. Use tylenol for break through pain symptoms. Chronic Pain Syndrome - pt has chronic pain - has been maintained on current medications, has not sought out other medications, only uses PRN pain medications as directed, and understands the consequences of over-medication. cbc, cmp CT ABD/PELVIS Clear liquid diet-advance as tolerated . Infectious enteritis - discussed need to stay away from milk products while acutely ill with diarrhea and nausea and emesis as it may worsen the symptoms. Liquids initially until the nausea improves, then recommend to advance to bland diet for 1 day, then advance as tolerated. Call if symptoms not improved. . Tinea-start triamcinolone/ketoconazole cream twice daily Right wrist pain-xray wrist LEVAQUIN 500MG DAILY X 10 DAYS KEEP [...] with specialist for treatment of wrist derrangement. b12 liquid start on vitamin D 2000mg [...]
--- OUTSIDE RECORDS SUMMARY | 2018-12-23 17:40 | XMS REPORT | CCD ---
Author Author Abril Sheridan Organization Abril Sheridan MD, [facility] Address [address] [place] [address] Phone Care Team Providers Care [employer] Name Role Phone PP Unavailable CCM Unavailable Summary Purpose Interface Exchange Insurance Providers Payer name Policy type / Coverage type Covered libertarian ID Effective Begin Date Effective End Date WPS Medicare Part B Medicare Part B [id number] Unknown Unknown [employer] Medicare Part B [id number] Unknown Unknown Family history Sister Diagnosis Age [...] Description Effective Dates Tobacco history SNOMED CT: 090968418 Never smoker 11/30/[address]: 191192750 Never drinks alcohol 11/30/2012 Has the patient [...] Instructions Nexium 40 mg capsule,delayed release RxNorm: 187237 Capsule(s) TAKE ONE CAPSULE BY MOUTH ONCE DAILY 10/31/2018 No Stop Date Active Cymbalta 30 mg capsule,delayed release RxNorm: 812843 TAKE ONE CAPSULE BY MOUTH ONCE DAILY 07/11/2018 No Stop Date Active Nexium 40 mg capsule,delayed release RxNorm: 008243 TAKE ONE CAPSULE BY MOUTH ONCE DAILY 07/11/2018 10/30/2018 Inactive gabapentin 100 mg capsule RxNorm: 041449 1 Capsule(s) PO TID 08/04/2018 Inactive prednisone 20 mg tablet RxNorm: 458366 2 Tablet(s) PO daily 01/201806/11/2018 Inactive betamethasone dipropionate 0.05 % topical cream RxNorm: 070509 1 Application TOP BID 06/06/2018 No Stop Date Active Voltaren 1 % topical gel RxNorm: 715237 1 Application TOP BID 04/28/2018 No Stop Date Active naproxen 500 mg tablet RxNorm: 748879 1 Tablet(s) PO BID 201705/02/2018 Inactive betamethasone dipropionate 0.05 % topical cream RxNorm: 613442 1 Application TOP BID 04/03/2018 06/05/2018 Inactive Nexium 40 mg capsule,delayed release RxNorm: 914241 TAKE ONE CAPSULE BY MOUTH ONCE DAILY 10/31/2017 07/10/2018 Inactive Cymbalta 30 mg capsule,delayed release RxNorm: 731950 1 Capsule(s) PO daily 10/18/2017 04/15/2018 Inactive clindamycin HCl 300 mg capsule RxNorm: 767424 1 Capsule(s) PO TID 10/18/2017 10/27/2017 Inactive tramadol 50 mg tablet RxNorm: 106713 1 Tablet(s) PO TID as needed 10/18/2017 07/03/2018 Inactive Cymbalta 30 mg capsule,delayed release RxNorm: 352329 1 Capsule(s) PO daily 10/04/2017 10/17/2017 Inactive Cymbalta 30 mg capsule,delayed release RxNorm: 325552 1 Capsule(s) PO daily 10/04/2017 10/03/2017 Inactive prednisone 20 mg tablet RxNorm: 813466 2 Tablet(s) PO daily 09/04/2017 Inactive betamethasone dipropionate 0.05 % topical cream RxNorm: 395374 1 Application TOP BID 08/31/2017 04/02/2018 Inactive Wellbutrin XL 150 mg 24 hr tablet, extended release RxNorm: 507886 1 Tablet(s) PO daily 07/26/2017 10/17/2017 Inactive Wellbutrin XL 150 mg 24 hr tablet, extended release RxNorm: 412675 1 Tablet(s) PO daily 06/21/2017 07/20/2017 Inactive Pepcid 20 mg tablet RxNorm: 361240 1 Tablet(s) PO BID 201606/23/2017 Inactive hydroxyzine HCl 25 mg tablet RxNorm: 171220 1 Tablet(s) PO TID as needed 06/14/2017 07/03/2018 Inactive itching/insomnia Flagyl 500 mg tablet RxNorm: 995419 1 Tablet(s) PO TID 201605/22/2017 Inactive Cipro 500 mg tablet RxNorm: 005655 1 Tablet(s) PO BID 201605/22/2017 Inactive Lexapro 20 mg tablet RxNorm: 618648 Tablet(s) TAKE ONE TABLET BY MOUTH ONCE DAILY 03/04/2017 08/15/2017 Inactive Nexium 40 mg capsule,delayed release RxNorm: 826906 TAKE ONE CAPSULE BY MOUTH ONCE DAILY 02/14/2017 08/15/2017 Inactive Vitamin D2 50,000 unit capsule RxNorm: 367055 1 Capsule(s) PO QW 01/19/2017 04/12/2017 Inactive one weekly for 12 weeks then 2000 units daily thereafter Lexapro 20 mg tablet RxNorm: 968183 TAKE ONE TABLET BY MOUTH ONCE DAILY 01/14/2017 03/03/2017 Inactive betamethasone dipropionate 0.05 % topical ointment RxNorm: 269189 1 Application TOP BID in between gentamycin applications 11/16/2016 No Stop Date Active prednisone 10 mg tablet RxNorm: 057093 Tablet(s) PO UD 201610/17/2017 Inactive 6,6,5,5,4,4,3,3,2,2,1,1, then 1/2 every other day x 2 doses Lexapro 20 mg tablet RxNorm: 953032 Tablet(s) 1 Tablet(s) PO daily 08/27/2016 03/03/2017 Inactive Lexapro 20 mg tablet RxNorm: 839999 1 Tablet(s) PO daily 201508/26/2016 Inactive Lexapro 20 mg tablet RxNorm: 061405 1 Tablet(s) PO daily 201508/24/2016 Inactive Lexapro 20 mg tablet RxNorm: 759440 1 Tablet(s) PO daily 201507/21/2016 Inactive hydrocodone 5 mg-acetaminophen 325 mg tablet RxNorm: 586182 1 Tablet(s) PO Q6 PRN 06/10/2016 07/03/2018 Inactive hydroxyzine HCl 25 mg tablet RxNorm: 972597 1 Tablet(s) PO HS PRN 06/10/2016 07/09/2016 Inactive itching/anxiety/insomnia meloxicam 7.5 mg tablet RxNorm: 520047 2 Tablet(s) PO daily 05/201608/16/2017 Inactive Lexapro 20 mg tablet RxNorm: 269631 1 Tablet(s) PO daily 201506/10/2016 Inactive prednisone 10 mg tablets in a dose pack RxNorm: 854689 1 Tablet(s) PO UD 04/13/2016 04/18/2016 Inactive 6-5-4-3-2-1 Kenalog 40 mg/mL suspension for injection RxNorm: 0120426 Milliliter(s) Inj 04/13/2016 04/13/2016 Inactive Lexapro 20 mg tablet RxNorm: 246675 1 Tablet(s) PO daily 201504/29/2016 Inactive Vitamin D3 5,000 unit tablet RxNorm: 033503 2 Tablet(s) PO daily 03/22/2016 No Stop Date Active gentamicin 0.1 % topical ointment RxNorm: 596666 1 Application TOP QID to affected skin tissue 03/22/20162015 Inactive folic acid 1 mg tablet RxNorm: 856550 1 Tablet(s) PO daily 10/17/2017 Inactive betamethasone dipropionate 0.05 % topical ointment RxNorm: 206306 1 Application TOP BID in between gentamycin applications 03/15/2016 11/15/2016 Inactive gentamicin 0.1 % topical ointment RxNorm: 880584 1 Application TOP QID to affected skin tissue 03/02/20162015 Inactive ciprofloxacin 500 mg tablet RxNorm: 375463 1 Tablet(s) PO BID 03/02/2016 03/11/2016 Inactive nystatin 100,000 unit/gram topical cream RxNorm: 250091 1 Application TOP BID 02/23/2016 No Stop Date Active Lexapro 20 mg tablet RxNorm: 950209 1 Tablet(s) PO daily 201503/23/2016 Inactive prednisone 20 mg tablet RxNorm: 096204 2 Tablet(s) PO daily 02/27/2016 Inactive Ultram 50 mg tablet RxNorm: 559933 1 Tablet(s) PO Q6 PRN as needed 02/19/2016 03/01/2016 Inactive duloxetine 60 mg capsule,delayed release RxNorm: 837059 1 Capsule(s) PO daily 01/26/2016 03/01/2016 Inactive [SAVINGS FOR UNINSURED PATIENTS -- BIN:539479, PCN: ASPROD1, Group: AME08, ID# [id number], Process claim through [employer], for questions: . THIS IS NOT INSURANCE.] Nexium 40 mg capsule,delayed release RxNorm: 316533 1 Tablet(s) PO daily 01/09/2016 04/02/2017 Inactive [SAVINGS FOR NON-COVERED DRUGS -- BIN:102634, PCN: ASPROD1, Group: XXXXX, ID# [id number], Questions: . THIS IS NOT INSURANCE.] ketoconazole 2 % topical cream RxNorm: 307797 1 Application TOP BID 01/09/2016 01/22/2016 Inactive triamcinolone acetonide 0.1 % topical cream RxNorm: 9290241 1 Application TOP BID 01/09/2016 01/22/2016 Inactive Nexium 40 mg capsule,delayed release RxNorm: 967418 1 Tablet(s) PO daily 01/09/2016 01/08/2016 Inactive [SAVINGS FOR NON-COVERED DRUGS -- BIN:614311, PCN: ASPROD1, Group: XXXXX, ID# [id number], Questions: . THIS IS NOT INSURANCE.] Diflucan 150 mg tablet RxNorm: 485930 1 Tablet(s) PO daily 05/201602/06/2016 Inactive daily x 7 days then weekly x 4 weeks clotrimazole 1 % topical cream RxNorm: 997441 1 Application TOP BID 12/09/2015 12/22/2015 Inactive hydroxyzine HCl 25 mg tablet RxNorm: 650562 1 Tablet(s) PO HS PRN 11/14/2015 06/13/2017 Inactive itching/insomnia Levaquin 500 mg tablet RxNorm: 481595 1 Tablet(s) PO daily 09/201611/23/2015 Inactive Vitamin D2 50,000 unit capsule RxNorm: 173053 1 Capsule(s) PO QW 11/05/2015 01/27/2016 Inactive one weekly for 12 weeks then 2000 units daily thereafter duloxetine 60 mg capsule,delayed release RxNorm: 791711 1 Capsule(s) PO daily 11/04/2015 01/25/2016 Inactive [SAVINGS FOR UNINSURED PATIENTS -- BIN:167705, PCN: ASPROD1, Group: AME08, ID# [id number], Process claim through [employer], for questions: . THIS IS NOT INSURANCE.] Levaquin 500 mg tablet RxNorm: 110779 1 Tablet(s) PO daily hold diflucan while on the ABX then resume diflucan once completed 11/03/2015 11/09/2015 Inactive Levaquin 500 mg tablet RxNorm: 104669 1 Tablet(s) PO daily 10/201511/02/2015 Inactive nystatin 100,000 unit/gram topical powder RxNorm: 116360 1 Application TOP QID apply to breast tissue, and abdominal folds 10/31/2015 12/29/2015 Inactive dispense quantity sufficient Diflucan 150 mg tablet RxNorm: 758681 1 Tablet(s) PO daily 11/13/2015 Inactive daily x 10 days then weekly x 4 weeks Diflucan 150 mg tablet RxNorm: 837161 1 Tablet(s) PO every other day 10/08/2015 11/18/2015 Inactive [SAVINGS FOR UNINSURED PATIENTS -- BIN:168980, PCN: ASPROD1, Group: AME08, ID# [id number], Process claim through [employer], for questions: [phone]. THIS IS NOT INSURANCE.] nystatin 100,000 unit/gram topical powder RxNorm: 970165 1 Application TOP QID apply to breast tissue, and abdominal folds 07/28/2015 08/24/2015 Inactive dispense quantity sufficient mupirocin 2 % topical ointment RxNorm: 441806 1 Application TOP TID apply under breast tissue and abdominal folds 07/24/2015 03/01/2016 Inactive dispense qs x 14 days nystatin 100,000 unit/gram topical powder RxNorm: 555000 1 Application TOP QID apply to breast tissue, and abdominal folds 07/24/2015 07/27/2015 Inactive dispense quantity sufficient pravastatin 20 mg tablet RxNorm: 015607 1 Tablet(s) PO daily 03/01/2016 Inactive [SAVINGS FOR UNINSURED PATIENTS -- BIN:236580, PCN: ASPROD1, Group: AME08 , ID# [id number], Process claim through [employer], for questions: . THIS IS NOT INSURANCE.] Nexium 40 mg capsule,delayed release RxNorm: 761061 TAKE ONE CAPSULE BY MOUTH ONCE DAILY 12/30/2014 06/27/2015 Inactive Nexium 40 mg capsule,delayed release RxNorm: 059833 1 Tablet(s) PO daily 12/30/2014 01/08/2016 Inactive [SAVINGS FOR NON-COVERED DRUGS -- BIN:867980, PCN: ASPROD1, Group: XXXXX, ID# [id number], Questions: . THIS IS NOT INSURANCE.] prednisone 20 mg tablet RxNorm: 023304 3 Tablet(s) PO daily 09/201512/16/2014 Inactive [SAVINGS FOR NON-COVERED DRUGS -- BIN:123323, PCN: ASPROD1, Group: XXXXX, ID# [id number], Questions: . THIS IS NOT INSURANCE.] Kenalog 40 mg/mL suspension for injection RxNorm: 6022885 Milliliter(s) Inj 12/12/2014 12/12/2014 Inactive [SAVINGS FOR NON-COVERED DRUGS -- BIN:377589, PCN: ASPROD1, Group: XXXXX, ID# [id number], Questions: . THIS IS NOT INSURANCE.] pravastatin 10 mg tablet RxNorm: 244019 1 Tablet(s) PO daily 11/17/2014 Inactive pravastatin 10 mg tablet RxNorm: 950888 1 Tablet(s) PO daily 11/17/2014 Inactive [SAVINGS FOR UNINSURED PATIENTS -- BIN:820195, PCN: ASPROD1, Group: AME08 , ID# [id number], Process claim through [employer], for questions: . THIS IS NOT INSURANCE.] pravastatin 10 mg tablet RxNorm: 979812 1 Tablet(s) PO daily 06/15/2015 Inactive pravastatin 10 mg tablet RxNorm: 677518 1 Tablet(s) PO daily 03/02/2015 Inactive [SAVINGS FOR UNINSURED PATIENTS -- BIN:601886, PCN: ASPROD1, Group: AME08 , ID# [id number], Process claim through [employer], for questions: . THIS IS NOT INSURANCE.] duloxetine 60 mg capsule,delayed release RxNorm: 526151 1 Capsule(s) PO daily 11/11/2014 06/08/2015 Inactive [SAVINGS FOR UNINSURED PATIENTS -- BIN:392055, PCN: ASPROD1, Group: AME08, ID# [id number], Process claim through [employer], for questions: . THIS IS NOT INSURANCE.] Brisdelle 7.5 mg capsule RxNorm: 5485601 1 Capsule(s) PO daily 11/11/2014 01/09/2015 Inactive [SAVINGS FOR UNINSURED PATIENTS -- BIN:487994, PCN: ASPROD1, Group: AME08, ID# [id number], Process claim through [employer], for questions: [phone]. THIS IS NOT INSURANCE.] Diflucan 150 mg tablet RxNorm: 791094 1 Tablet(s) PO every other day 11/11/2014 12/22/2014 Inactive [SAVINGS FOR UNINSURED PATIENTS -- BIN:395725, PCN: ASPROD1, Group: AME08, ID# [id number], Process claim through [employer], for questions: [phone]. THIS IS NOT INSURANCE.] nystatin 100,000 unit/gram topical powder RxNorm: 865576 1 Application TOP QID apply to breast tissue, and abdominal folds 07/15/2014 07/28/2014 Inactive dispense quantity sufficient Diflucan 150 mg tablet RxNorm: 647517 1 Tablet(s) PO daily 10/201307/07/2014 Inactive mupirocin 2 % topical ointment RxNorm: 752622 1 Application TOP TID apply under breast tissue and abdominal folds 05/17/2014 06/13/2014 Inactive dispense qs x 14 days gemfibrozil 600 mg tablet RxNorm: 520809 1 Tablet(s) PO BID 08/201412/10/2013 Inactive gemfibrozil 600 mg tablet RxNorm: 295058 1 Tablet(s) PO BID 08/201403/02/2015 Inactive Medrol ([place]) 4 mg tablets in a dose pack RxNorm: 952632 Tablet(s) PO as directed 12/05/2013 06/03/2014 Inactive Ultram 50 mg tablet RxNorm: 633208 1 Tablet(s) PO Q6 PRN 12/0502/18/2016 Inactive nystatin 100,000 unit/gram topical powder RxNorm: 945547 1 Application TOP QID apply to breast tissue, and abdominal folds 12/04/2013 07/02/2014 Inactive dispense quantity sufficient Nexium 40 mg capsule,delayed release RxNorm: 950469 1 Tablet(s) PO daily 12/04/2013 12/29/2014 Inactive Kenalog 40 mg/mL suspension for injection RxNorm: 0353252 Milliliter(s) Inj 12/04/2013 12/04/2013 Inactive mupirocin 2 % topical ointment RxNorm: 276640 1 Application TOP TID apply under breast tissue and abdominal folds 12/04/2013 12/17/2013 Inactive dispense qs x 14 days Cymbalta 60 mg capsule,delayed release RxNorm: 141349 1 Capsule(s) PO daily 12/04/2013 11/10/2014 Inactive Diflucan 150 mg tablet RxNorm: 045349 1 Tablet(s) PO daily 11/28/2013 Inactive Cymbalta 60 mg capsule,delayed release RxNorm: 677226 1 Capsule(s) PO daily 11/13/2013 12/03/2013 Inactive Diflucan 150 mg tablet RxNorm: 349450 1 Tablet(s) PO daily 08/201411/19/2013 Inactive nystatin 100,000 unit/gram topical powder RxNorm: 751409 1 Gram(s) TOP BID 11/13/2013 11/22/2013 Inactive Vitamin D2 50,000 unit capsule RxNorm: 311153 1 Capsule(s) PO QW 07/03/2013 No Stop Date Active one weekly for 12 weeks then 2000 units daily thereafter sucralfate 100 mg/mL Oral Susp RxNorm: 461775 10 Milliliter(s) PO QID 07/02/2013 10/29/2013 Inactive estradiol 0.5 mg tablet RxNorm: 442134 1 Tablet(s) PO daily 07/02/2014 Inactive promethazine 25 mg/mL Injection RxNorm: 078639 Milliliter(s) Inj 07/02/2013 07/02/2013 Inactive Kenalog 40 mg/mL Susp for Injection RxNorm: 0627635 Milliliter(s) Inj 06/18/2013 06/18/2013 Inactive clindamycin 300 mg capsule RxNorm: 147848 1 Capsule(s) PO TID 06/18/2013 06/24/2013 Inactive meloxicam 7.5 mg tablet RxNorm: 633464 1 Tablet(s) PO daily 07/01/2013 Inactive Cymbalta 60 mg capsule,delayed release RxNorm: 309873 1 Capsule(s) PO daily 05/07/2013 11/02/2013 Inactive Nexium 40 mg capsule,delayed release RxNorm: 706945 1 Tablet(s) PO daily 02/15/2013 09/12/2013 Inactive Vitamin D2 50,000 unit capsule RxNorm: 681154 1 Capsule(s) PO QW 12/07/2012 03/06/2013 Inactive one weekly for 12 weeks then 2000 units daily thereafter Vitamin D2 50,000 unit capsule RxNorm: 499753 1 Capsule(s) PO QW 12/07/2012 12/06/2012 Inactive one weekly for 12 weeks then 2000 units daily thereafter pantoprazole 40 mg tablet,delayed release RxNorm: 034981 1 Tablet(s) PO QPM 11/30/2012 02/14/2013 Inactive sucralfate 100 mg/mL Oral Susp RxNorm: 957425 10 Milliliter(s) PO QID 10 ML by mouth before meals and before bed 11/30/2012 02/15/2013 Inactive multivitamin tablet RxNorm: 1 Tablet(s) PO daily No Start Date Active jonny Red [place] 3 Krill Oil RxNorm: 1 PO BID No Start Date Active Xanax 0.5 mg tablet RxNorm: 283315 1/2 to 1 Tablet(s) PO Q6 PRN No Start Date 03/01/2016 Inactive Cymbalta 60 mg capsule,delayed release RxNorm: 771140 1 Capsule(s) PO daily No Start Date 05/06/2013 Inactive betamethasone dipropionate 0.05 % topical ointment RxNorm: 387834 1 Application TOP BID in between gentamycin applications No Start Date 03/14/2016 Inactive Aleve 220 mg tablet RxNorm: 661671 2 Tablet(s) PO daily No Start Date 03/21/2016 Inactive Vitamin B-12 1,000 mcg tablet RxNorm: 852193 1 Tablet(s) PO daily No Start Date 10/17/2017 Inactive Vitamin D3 2,000 unit capsule RxNorm: 939173 1 Capsule(s) PO daily No Start Date 12/12/2013 Inactive omeprazole 20 mg capsule,delayed release RxNorm: 677520 1 Capsule(s) PO daily No Start Date 11/30/2012 Inactive Ultram 50 mg tablet RxNorm: 830847 1 Tablet(s) PO Q6 PRN No Start Date 12/04/2013 Inactive folic acid oral RxNorm : oral No Start Date 03/21/2016 Inactive Vitamin D3 5,000 unit tablet RxNorm: 856973 1 Tablet(s) PO daily No Start Date 03/21/2016 Inactive Calcium 500 + D (D3) 500 mg-125 unit tablet RxNorm: 434509 1 Tablet(s) PO daily No Start Date 03/21/2016 Inactive Medrol (Carmine) 4 mg tablets in a dose pack RxNorm: 741091 Tablet(s) PO as doctor directed No Start Date 12/04/2013 Inactive Medication Administered Medication Codes Instructions Start Date Status Kenalog 40 mg/mL suspension for injection RxNorm: 3727739 Milliliter 04/13/2016 No longer Active Kenalog 40 mg/mL suspension for injection RxNorm: 0406104 Milliliter 12/12/2014 No longer Active Kenalog 40 mg/mL suspension for injection RxNorm: 2601223 Milliliter 12/04/2013 No longer Active promethazine 25 mg/mL Injection RxNorm: 726932 Milliliter 07/02/2013 No longer Active Kenalog 40 mg/mL Susp for Injection RxNorm: 0269003 Milliliter 06/18/2013 No longer Active Immunizations Vaccine [...] Ord90 Mag 1.9 mg/dL 07/14/2018 Free T4 Mhr940 FREE T4 0.71 ng/dL 07/14/2018 Tsh Ord6 TSH (3rd IS) 1.73 uIU/mL 07/14/2018 Tsh Ord6 TSH (3rd IS) 1.50 uIU/mL 04/03/2018 Comp Metabolic Yag464 NA 137 mEq/L 04/03/2018 Comp Metabolic Ubt260 K 4.4 mEq/L 04/03/2018 Comp Metabolic Tdk375 CL 99 mEq/L 04/03/2018 Comp Metabolic Ynw533 CO2 29.0 mEq/L 04/03/2018 Comp Metabolic Pym739 ANION GAP 13 04/03/2018 Comp Metabolic Wks352 GLUCOSE 88 mg/dL 04/03/2018 Comp Metabolic Sgh923 Creat 0.9 mg/dL 04/03/2018 Comp Metabolic Kgj020 eGFR 64 ml/min/1.73m2 04/03/2018 Comp Metabolic Scb378 BUN 21 mg/dL 04/03/2018 Comp Metabolic Npp048 B/C Ratio 23.1 Ratio 04/03/2018 Comp Metabolic Qhl824 CALCIUM 10.0 mg/dL 04/03/2018 Comp Metabolic Hdy925 ALK PHOS 112 U/L 04/03/2018 Comp Metabolic Ofk248 AST(SGOT) 24 U/L 04/03/2018 Comp Metabolic Qjv744 ALT(SGPT) 20 U/L 04/03/2018 Comp Metabolic Vxa598 BILI T 0.3 mg/dL 04/03/2018 Comp Metabolic Mgs118 ALBUMIN 4.4 g/dL 04/03/2018 Comp Metabolic Qcr274 TPRO 7.0 g/dL 04/03/2018 Comp Metabolic Ups711 GLOB 2.6 g/dL 04/03/2018 Comp Metabolic Oiu610 A/G Ratio 1.7 Ratio 04/03/2018 Comp Metabolic Dkz097 Osmo 276 mOsmo 04/03/2018 Cbc With Differential [...] 42.3 % 04/03/2018 Cbc With Differential Ord2 [place]% 8.6 % 04/03/2018 Cbc With Differential Ord2 [...] 4.67 K/ul 04/03/2018 Cbc With Differential Ord2 [place] ABS# 1.0 K/ul 04/03/2018 Cbc With Differential Ord2 Eos ABS# 0.1 K/ul 04/03/2018 Cbc With Differential Ord2 Baso ABS# 0.0 K/ul 04/03/2018 Vitamin D 25 Oh [id number] VITAMIN D, 25 HYDROXY 34.42 ng/mL Cbc [...] 94.9 fl 01/13/2017 Cbc With Differential Ord2 [place]% 6.7 % 01/13/2017 Cbc With Differential Ord2 [...] 2.96 K/ul 01/13/2017 Cbc With Differential Ord2 [place] ABS# 0.5 K/ul 01/13/2017 Cbc With Differential Ord2 Eos ABS# 0.2 K/ul 01/13/2017 Cbc With Differential Ord2 Baso ABS# 0.0 K/ul 01/13/2017 B12 Rvp424 B12 562.00 pg/ml 01/13/2017 Elle Reflex Profile [id number] ELLE (ARVIND) SCREEN NONE DETECTED 04/17/2016 Cbc [...] 30.8 pg 04/13/2016 Cbc With Differential Ord2 [place]% 6.7 % 04/13/2016 Cbc With Differential Ord2 [...] 3.86 K/ul 04/13/2016 Cbc With Differential Ord2 [place] ABS# 0.6 K/ul 04/13/2016 Cbc With Differential Ord2 Eos ABS# 0.1 K/ul 04/13/2016 Cbc With Differential Ord2 Baso ABS# 0.0 K/ul 04/13/2016 Ra Factor Gkx141 RA FACTOR <10 IU/ml 04/13/2016 Comp Metabolic Uyl762 NA 138 mEq/L 04/13/2016 Comp Metabolic Vuu734 K 3.7 mEq/L 04/13/2016 Comp Metabolic Evk818 CL 104 mEq/L 04/13/2016 Comp Metabolic Zim133 CO2 25.0 mEq/L 04/13/2016 Comp Metabolic Ofy848 ANION GAP 13 04/13/2016 Comp Metabolic Nxc792 GLUCOSE 146 mg/dL 04/13/2016 Comp Metabolic Bcl563 Creat 0.9 mg/dL 04/13/2016 Comp Metabolic Dqa029 eGFR 69 ml/min/1.73m2 04/13/2016 Comp Metabolic Zvz135 BUN 14 mg/dL 04/13/2016 Comp Metabolic Ect535 B/C Ratio 16.5 Ratio 04/13/2016 Comp Metabolic Jdw134 CALCIUM 9.5 mg/dL 04/13/2016 Comp Metabolic Air920 ALK PHOS 107 U/L 04/13/2016 Comp Metabolic Aqg170 AST(SGOT) 16 U/L 04/13/2016 Comp Metabolic Izi732 ALT(SGPT) 17 U/L 04/13/2016 Comp Metabolic Fns186 BILI T 0.2 mg/dL 04/13/2016 Comp Metabolic Hwx104 ALBUMIN 4.0 g/dL 04/13/2016 Comp Metabolic Dsp012 TPRO 6.6 g/dL 04/13/2016 Comp Metabolic Tgn235 GLOB 2.6 g/dL 04/13/2016 Comp Metabolic Ndy738 A/G Ratio 1.5 Ratio 04/13/2016 Comp Metabolic Muh016 Osmo 279 mOsmo 04/13/2016 Sed Rate Ord21 ESR 36 mm/hr 04/13/2016 Uric Acid Ord77 Uric A 6.7 mg/dL 04/13/2016 C-Reactive Protein Qnt Crqnt CRP 1.3 mg/dl 04/13/2016 Vitamin D 25 Oh Bsc0694 VITAMIN D, 25 HYDROXY 49.37 ng/mL Comp Metabolic Ibd776 NA 136 mEq/L 02/24/2016 Comp Metabolic Wtf461 K 4.2 mEq/L 02/24/2016 Comp Metabolic Vsg650 CL 98 mEq/L 02/24/2016 Comp Metabolic Whr594 CO2 30.0 mEq/L 02/24/2016 Comp Metabolic Atu867 ANION GAP 12 02/24/2016 Comp Metabolic Btx700 GLUCOSE 115 mg/dL 02/24/2016 Comp Metabolic Jwh015 Creat 0.9 mg/dL 02/24/2016 Comp Metabolic Cpx150 eGFR 67 ml/min/1.73m2 02/24/2016 Comp Metabolic Xsn238 BUN 22 mg/dL 02/24/2016 Comp Metabolic Cww298 B/C Ratio 25.3 Ratio 02/24/2016 Comp Metabolic Ayb334 CALCIUM 9.8 mg/dL 02/24/2016 Comp Metabolic Nec743 ALK PHOS 124 U/L 02/24/2016 Comp Metabolic Rtm134 AST(SGOT) 19 U/L 02/24/2016 Comp Metabolic Zqq523 ALT(SGPT) 18 U/L 02/24/2016 Comp Metabolic Yev930 BILI T 0.4 mg/dL 02/24/2016 Comp Metabolic Ndc144 ALBUMIN 4.6 g/dL 02/24/2016 Comp Metabolic Ouq738 TPRO 7.8 g/dL 02/24/2016 Comp Metabolic Tav163 GLOB 3.3 g/dL 02/24/2016 Comp Metabolic Giq448 A/G Ratio 1.4 Ratio 02/24/2016 Comp Metabolic Jhz090 Osmo 276 mOsmo 02/24/2016 Sed Rate Ord21 [...] 92.0 fl 02/24/2016 Cbc With Differential Ord2 [place]% 6.8 % 02/24/2016 Cbc With Differential Ord2 [...] 4.53 K/ul 02/24/2016 Cbc With Differential Ord2 [place] ABS# 0.7 K/ul 02/24/2016 Cbc With Differential [...] 48.4 % 10/31/2015 Cbc With Differential Ord2 [place]% 7.2 % 10/31/2015 Cbc With Differential Ord2 [...] 3.41 K/ul 10/31/2015 Cbc With Differential Ord2 [place] ABS# 0.5 K/ul 10/31/2015 Cbc With Differential Ord2 Eos ABS# 0.2 K/ul 10/31/2015 Cbc With Differential Ord2 Baso ABS# 0.0 K/ul 10/31/2015 Cbc With Differential Ord2 New Analyzer Notice Please note new ref ranges starting 10-15-2015 due to implemntation of new five part differential hematolgy analyzer. 10/31/2015 Vitamin D 25 Oh Otu7024 VITAMIN D, 25 HYDROXY 33.87 ng/mL Tsh Ord6 hTSH II 4.37 uIU/mL 10/31/2015 Lipid Ord30 CHOL 168 mg/dL 10/31/2015 Lipid Ord30 HDL 30.0 mg/dl 10/31/2015 Lipid Ord30 TRIG 293 mg/dL 10/31/2015 Lipid Ord30 LDL 79 mg/dL 10/31/2015 Lipid Ord30 C/HDL 5.6 Ratio 10/31/2015 B12 Fdo272 B12 327.00 pg/ml 10/31/2015 Comp Metabolic Zgf382 NA 140 mEq/L 10/31/2015 Comp Metabolic Pss558 K 4.0 mEq/L 10/31/2015 Comp Metabolic Drj391 CL 103 mEq/L 10/31/2015 Comp Metabolic Bgo771 CO2 29.0 mEq/L 10/31/2015 Comp Metabolic Aac629 ANION GAP 12 10/31/2015 Comp Metabolic Pln163 GLUCOSE 104 mg/dL 10/31/2015 Comp Metabolic Lqg194 Creat 0.9 mg/dL 10/31/2015 Comp Metabolic Etd649 eGFR 62 ml/min/1.73m2 10/31/2015 Comp Metabolic Zux848 BUN 13 mg/dL 10/31/2015 Comp Metabolic Prs911 B/C Ratio 13.8 Ratio 10/31/2015 Comp Metabolic Wvv645 CALCIUM 9.5 mg/dL 10/31/2015 Comp Metabolic Qfi063 ALK PHOS 102 U/L 10/31/2015 Comp Metabolic Hpo452 AST(SGOT) 19 U/L 10/31/2015 Comp Metabolic Ude718 ALT(SGPT) 17 U/L 10/31/2015 Comp Metabolic Syn779 BILI T 0.3 mg/dL 10/31/2015 Comp Metabolic Cxe239 ALBUMIN 4.1 g/dL 10/31/2015 Comp Metabolic Zia376 TPRO 6.8 g/dL 10/31/2015 Comp Metabolic Nng789 GLOB 2.7 g/dL 10/31/2015 Comp Metabolic Oqe568 A/G Ratio 1.5 Ratio 10/31/2015 Comp Metabolic Clf729 Osmo 280 mOsmo 10/31/2015 GFR CALC 2572414 GFR AA 59.0L ML/MIN 02/28/2015 GFR CALC 6953436 GFR NON-AA 49.0L ML/MIN 02/28/2015 CHEM 14 6141916 AST 19 U/L 02/28/2015 CHEM 14 5881292 ALT 15 IU/L 02/28/2015 CHEM 14 [id number] BUN 16 MG/DL 02/28/2015 CHEM 14 9774840 ALBUMIN 4.7 GM/DL 02/28/2015 CHEM 14 0616254 CHLORIDE 99 MMOL/L 02/28/2015 CHEM 14 4675955 BILI TOT 0.5 MG/DL 02/28/2015 CHEM 14 0399338 ALK PHOS 111 U/L 02/28/2015 CHEM 14 8221103 SODIUM 135 MMOL/L 02/28/2015 CHEM 14 9085632 CREATININE 1.10 MG/DL 02/28/2015 CHEM 14 3896425 CALCIUM 10.1 MG/DL 02/28/2015 CHEM 14 [id number] POTASSIUM 4.0 MMOL/L 02/28/2015 CHEM 14 2070742 PROT TOT 8.2 GM/DL 02/28/2015 CHEM 14 0893854 GLUCOSE 123 MG/DL 02/28/2015 CHEM 14 9032391 BICARB 29 MMOL/L 02/28/2015 CHEM 14 3565145 ANION GAP 7 MEQ/L 02/28/2015 LIPID GRP [...] GRP NON-HDL CH 175 MG/DL 11/11/2014 CBC 2565690 WBC 6.6 10e9/L 11/11/2014 CBC 1744691 RBC 4.89 10e12/L 11/11/2014 CBC 8335465 HGB 15.2 g/dL 11/11/2014 CBC 8212353 HCT DET 45.2 % 11/11/2014 CBC 2233299 MCV 92.4 fL 11/11/2014 CBC 7561803 MCH 31.1 pg 11/11/2014 CBC 8037984 MCHC 33.6 g/dL 11/11/2014 CBC 0757942 PLT 275 10e9/L 11/11/2014 CBC 9191650 MPV 10.1 fL 11/11/2014 CBC 0517757 RC % 43.7 % 11/11/2014 CBC 0082147 LY % 46.5 % 11/11/2014 CBC 9910360 MON % 7.2 % 11/11/2014 CBC 6186128 EOS % 2.0 % 11/11/2014 CBC 9673082 BASO % 0.6 % 11/11/2014 CBC 7491701 RDW 13.3 % 11/11/2014 CBC 1790844 ABS RC 2.88 10e9/L 11/11/2014 CBC 1109497 ABS LYMPH 3.07 10e9/L 11/11/2014 CBC 5432618 ABS MONO 0.48 10e9/L 11/11/2014 CBC 8093445 ABS EOS 0.13 10e9/L 11/11/2014 CBC 9312610 ABS BASO 0.04 10e9/L 11/11/2014 CBC 3410837 RDW-SD 44.1 fL 11/11/2014 CHEM 14 4642834 AST 20 U/L 11/11/2014 CHEM 14 5468776 ALT 14 IU/L 11/11/2014 CHEM 14 4011042 BUN 13 MG/DL 11/11/2014 CHEM 14 6496509 ALBUMIN 4.4 GM/DL 11/11/2014 CHEM 14 4049213 CHLORIDE 104 MMOL/L 11/11/2014 CHEM 14 6590272 BILI TOT 0.3 MG/DL 11/11/2014 CHEM 14 3446038 ALK PHOS 113 U/L 11/11/2014 CHEM 14 7856358 SODIUM 140 MMOL/L 11/11/2014 CHEM 14 6926365 CREATININE 0.98 MG/DL 11/11/2014 CHEM 14 9112905 CALCIUM 9.6 MG/DL 11/11/2014 CHEM 14 0989515 POTASSIUM 3.9 MMOL/L 11/11/2014 CHEM 14 2022251 PROT TOT 7.5 GM/DL 11/11/2014 CHEM 14 4332104 GLUCOSE 102 MG/DL 11/11/2014 CHEM 14 9321182 BICARB 28 MMOL/L 11/11/2014 CHEM 14 8582714 ANION GAP 8 MEQ/L 11/11/2014 GFR CALC 8855035 GFR AA >60 ML/MIN 11/11/2014 GFR CALC 4621149 GFR NON-AA 55.0L ML/MIN 11/11/2014 TSH 1195508 TSH 2.055 uIU/ML 11/11/2014 TSH 2787005 TSH 2.956 uIU/ML 12/04/2013 A1C HPLC 3474687 A1C HPLC 43284-0 5.4 % 12/04/2013 GFR CALC 6965130 GFR AA >60 ML/MIN 12/04/2013 GFR CALC 4447907 GFR NON-AA 57.0L ML/MIN 12/04/2013 CBC 8696747 WBC 7.2 10e9/L 12/04/2013 CBC 8815275 RBC 4.98 10e12/L 12/04/2013 CBC 2385892 HGB 15.8 g/dL 12/04/2013 CBC 9432824 HCT DET 46.0 % 12/04/2013 CBC 2150703 MCV 92.4 fL 12/04/2013 CBC 8727334 MCH 31.7 pg 12/04/2013 CBC 7534795 MCHC 34.3 g/dL 12/04/2013 CBC 5014505 PLT 266 10e9/L 12/04/2013 CBC 4787344 MPV 9.9 fL 12/04/2013 CBC 3217704 RC % 49.1 % 12/04/2013 CBC 4058270 LY % 41.9 % 12/04/2013 CBC 2563886 MON % 6.5 % 12/04/2013 CBC 8765658 EOS % 1.8 % 12/04/2013 CBC 5981582 BASO % 0.7 % 12/04/2013 CBC 6085679 RDW 13.3 % 12/04/2013 CBC 3044065 ABS RC 3.54 10e9/L 12/04/2013 CBC 2459271 ABS LYMPH 3.02 10e9/L 12/04/2013 CBC 0769319 ABS MONO 0.47 10e9/L 12/04/2013 CBC 3076848 ABS EOS 0.13 10e9/L 12/04/2013 CBC 5466634 ABS BASO 0.05 10e9/L 12/04/2013 CBC 3000758 RDW-SD 44.0 fL 12/04/2013 VIT D TOTL 9494617 VIT D TOTL 29 NG/ML 12/04/2013 LIPID GRP HDL TEST 33 MG/DL 12/04/2013 LIPID GRP TRIG 291 MG/DL 12/04/2013 LIPID GRP TEST LDL 124 MG/DL 12/04/2013 LIPID GRP CHOL 215 MG/DL 12/04/2013 LIPID GRP RCHOL/HDL 6.52 RATIO 12/04/2013 CHEM 14 0326620 AST 20 U/L 12/04/2013 CHEM 14 6885236 ALT 18 IU/L 12/04/2013 CHEM 14 6536817 BUN 13 MG/DL 12/04/2013 CHEM 14 5820590 ALBUMIN 4.5 GM/DL 12/04/2013 CHEM 14 5749619 CHLORIDE 104 MMOL/L 12/04/2013 CHEM 14 9673887 BILI TOT 0.3 MG/DL 12/04/2013 CHEM 14 6025820 ALK PHOS 92 U/L 12/04/2013 CHEM 14 4501366 SODIUM 140 MMOL/L 12/04/2013 CHEM 14 9496018 CREATININE 0.96 MG/DL 12/04/2013 CHEM 14 4384988 CALCIUM 9.8 MG/DL 12/04/2013 CHEM 14 8017127 POTASSIUM 4.2 MMOL/L 12/04/2013 CHEM 14 3068702 PROT TOT 7.1 GM/DL 12/04/2013 CHEM 14 4421871 GLUCOSE 111 MG/DL 12/04/2013 CHEM 14 4142612 BICARB 27 MMOL/L 12/04/2013 CHEM 14 5911340 ANION GAP 9 MEQ/L 12/04/2013 CHEM 14 3076811 AST 19 U/L 07/02/2013 CHEM 14 2592070 ALT 20 IU/L 07/02/2013 CHEM 14 8673684 BUN 17 MG/DL 07/02/2013 CHEM 14 0551112 ALBUMIN 4.9 GM/DL 07/02/2013 CHEM 14 9766509 CHLORIDE 103 MMOL/L 07/02/2013 CHEM 14 7636790 BILI TOT 0.3 MG/DL 07/02/2013 CHEM 14 8142587 ALK PHOS 108 U/L 07/02/2013 CHEM 14 7619823 SODIUM 139 MMOL/L 07/02/2013 CHEM 14 8127759 CREATININE 1.01 MG/DL 07/02/2013 CHEM 14 7135577 CALCIUM 10.1 MG/DL 07/02/2013 CHEM 14 3602568 POTASSIUM 4.2 MMOL/L 07/02/2013 CHEM 14 6995149 PROT TOT 7.5 GM/DL 07/02/2013 CHEM 14 1439022 GLUCOSE 94 MG/DL 07/02/2013 CHEM 14 6792597 BICARB 29 MMOL/L 07/02/2013 CHEM 14 9969644 ANION GAP 7 MEQ/L 07/02/2013 CBC 2648134 WBC 11.1 10e9/L 07/02/2013 CBC 8528356 RBC 5.08 10e12/L 07/02/2013 CBC 8968646 HGB 16.1 g/dL 07/02/2013 CBC 3476781 HCT DET 46.6 % 07/02/2013 CBC 2313506 MCV 91.7 fL 07/02/2013 CBC 1171156 MCH 31.7 pg 07/02/2013 CBC 5939396 MCHC 34.5 g/dL 07/02/2013 CBC 1559478 PLT 287 10e9/L 07/02/2013 CBC 4587315 MPV 9.6 fL 07/02/2013 CBC 2729821 RC % 56.1 % 07/02/2013 CBC 4644481 LY % 35.3 % 07/02/2013 CBC 7909510 MON % 7.1 % 07/02/2013 CBC 3643270 EOS % 1.2 % 07/02/2013 CBC 6445338 BASO % 0.3 % 07/02/2013 CBC 1634970 RDW 14.1 % 07/02/2013 CBC 9276177 ABS RC 6.23 10e9/L 07/02/2013 CBC 2429989 ABS LYMPH 3.92 10e9/L 07/02/2013 CBC 5343628 ABS MONO 0.79 10e9/L 07/02/2013 CBC 1901990 ABS EOS 0.13 10e9/L 07/02/2013 CBC 4093844 ABS BASO 0.03 10e9/L 07/02/2013 CBC 3604843 RDW-SD 46.1 fL 07/02/2013 VIT B 12 1897604 VIT B 12 672 PG/ML 07/02/2013 GFR CALC 7395114 GFR AA >60 ML/MIN 07/02/2013 GFR CALC 8208171 GFR NON-AA 54.0L ML/MIN 07/02/2013 FREE T4 8054506 FREE T4 1.09 NG/DL 07/02/2013 TSH 6945551 TSH 1.599 uIU/ML 07/02/2013 VIT D TOTL 4964008 VIT D TOTL 29 NG/ML 07/02/2013 A1C HPLC 7837081 A1C HPLC 75829-2 5.9 % 12/06/2012 LIPID GRP HDL TEST 28 MG/DL 12/05/2012 LIPID GRP TRIG 237 MG/DL 12/05/2012 LIPID GRP TEST LDL 98 MG/DL 12/05/2012 LIPID GRP CHOL 173 MG/DL 12/05/2012 LIPID GRP RCHOL/HDL 6.18 RATIO 12/05/2012 VIT D TOTL 8249666 VIT D TOTL 16 NG/ML 12/05/2012 CBC 6200765 WBC 8.0 10e9/L 12/05/2012 CBC 2374527 RBC 4.83 10e12/L 12/05/2012 CBC 6570576 HGB 15.1 g/dL 12/05/2012 CBC 2934228 HCT DET 44.0 % 12/05/2012 CBC 4220211 MCV 91.1 fL 12/05/2012 CBC 5185118 MCH 31.3 pg 12/05/2012 CBC 1313955 MCHC 34.3 g/dL 12/05/2012 CBC 0984626 PLT 260 10e9/L 12/05/2012 CBC 4869175 MPV 10.0 fL 12/05/2012 CBC 8081500 RC % 41.9 % 12/05/2012 CBC 0356243 LY % 48.1 % 12/05/2012 CBC 4427825 MON % 7.6 % 12/05/2012 CBC 8989630 EOS % 1.9 % 12/05/2012 CBC 5031383 BASO % 0.5 % 12/05/2012 CBC 3419436 RDW 13.4 % 12/05/2012 CBC 0006548 ABS RC 3.35 10e9/L 12/05/2012 CBC 1998578 ABS LYMPH 3.85 10e9/L 12/05/2012 CBC 6233052 ABS MONO 0.61 10e9/L 12/05/2012 CBC 8805866 ABS EOS 0.15 10e9/L 12/05/2012 CBC 2446879 ABS BASO 0.04 10e9/L 12/05/2012 CBC 3657375 RDW-SD 43.4 fL 12/05/2012 CHEM 14 1676402 AST 21 U/L 12/05/2012 CHEM 14 0785950 ALT 24 IU/L 12/05/2012 CHEM 14 1766429 BUN 14 MG/DL 12/05/2012 CHEM 14 1143060 ALBUMIN 4.3 GM/DL 12/05/2012 CHEM 14 0457048 CHLORIDE 106 MMOL/L 12/05/2012 CHEM 14 5320572 BILI TOT 0.4 MG/DL 12/05/2012 CHEM 14 9740119 ALK PHOS 102 U/L 12/05/2012 CHEM 14 6576505 SODIUM 141 MMOL/L 12/05/2012 CHEM 14 3144615 CREATININE 0.96 MG/DL 12/05/2012 CHEM 14 3193542 CALCIUM 9.8 MG/DL 12/05/2012 CHEM 14 2408445 POTASSIUM 4.1 MMOL/L 12/05/2012 CHEM 14 0646708 PROT TOT 6.8 GM/DL 12/05/2012 CHEM 14 6167236 GLUCOSE 107 MG/DL 12/05/2012 CHEM 14 2857519 BICARB 28 MMOL/L 12/05/2012 CHEM 14 2908341 ANION GAP 7 MEQ/L 12/05/2012 FERRITIN 1590952 FERRITIN 151 NG/ML 12/05/2012 MAGNESIUM 4317438 MAGNESIUM 1.6 MEQ/L 12/05/2012 CRP 8950559 CRP 0.6 MG/DL 12/05/2012 FOLIC ACID 3342447 FOLIC ACID 12.2 NG/ML 12/05/2012 VIT B 12 0571710 VIT B 12 389 PG/ML 12/05/2012 TSH 4581910 TSH 3.097 uIU/ML 12/05/2012 GFR CALC 5538772 GFR AA >60 ML/MIN 12/05/2012 GFR CALC 3319541 GFR NON-AA 57.0L ML/MIN 12/05/2012 %SAT/TIBC 3152433 TIBC 305 UG/DL 12/05/2012 %SAT/TIBC 3882764 % SATURAT 25 % 12/05/2012 %SAT/TIBC 7338016 UIBC 229 MCG/DL 12/05/2012 ESR 7864466 ESR 14 MM/HR 12/05/2012 IRON TEST 6168370 IRON TEST 76 UG/DL 12/05/2012 UA 25021 Specific Model 1.030 DateTime(Free Text in ) UA 27756 PH 5.0 DateTime(Free Text in ) UA 40904 GLUCOSE neg DateTime(Free Text in Janima) UA 76476 Protein neg DateTime(Free Text in Aprima) UA 22352 Blood neg DateTime(Free Text in Aprima) UA 61967 Bilirubin neg DateTime(Free Text in Aprima) UA 15914 Ketones neg DateTime(Free Text in Aprima) UA 74538 Urobilinogen neg DateTime(Free Text in Aprima) UA 77131 Nitrite neg DateTime(Free Text in Aprima) UA 52634 Leukocytes trace DateTime(Free Text in Aprima) Review of Systems System Result Effective Dates [...] nourished 10/18/2017 None Full Exam - General 1995 Eyes conjunctiva /eyelids Overall: conjunctiva clear 10/18/2017 [...] dentition 07/16/2013 None Full Exam - General 1994 Ears/Nose/Throat oral cavity/pharynx/larynx Overall: hypopharynx benign 07/16/2013 [...] murmurs 07/02/2013 None Full Exam - General 1995 Abdomen abdominal exam Overall: no tenderness 07/02/2013 None Full Exam - General 1995 Abdomen abdominal exam Overall: normal bowel sounds 07/02/2013 None Full Exam - General 1995 Lymphatic neck nodes Overall: anterior cervical chain benign 07/02/2013 None Full Exam - General 1995 Lymphatic neck nodes Overall: posterior cervical chain benign 07/02/2013 None Full Exam - General 1995 Neurologic cranial nerves Overall: crainial nerves 2 [...] sounds 12/15/2012 None Full Exam - General 1995 Cardiovascular extremities Overall: no clubbing 12/15/2012 None [...] benign 11/30/2012 None Full Exam - General 1995 Lymphatic neck nodes Overall: posterior cervical chain [...] CPT-4: J3301 12/12/2014 THER/PROPH/DIAG INJ SC/IM CPT-4: 94036 12/12/2014 FLU VACC 4 CECILIA 3 YRS PLUS IM SNOMED CT: 84270876 CPT-4: 95600 07/03/2014 ADMIN INFLUENZA VIRUS VAC Assigned to/Christopher Lorraine CPT-4: [id number] 07/03/2014 ROUTINE VENIPUNCTURE CPT-4: 75949 12/04/2013 TRIAMCINOLONE ACET INJ NOS CPT-4: J3301 12/04/2013 THER/PROPH/DIAG INJ SC/IM CPT-4: 24021 12/04/2013 ROUTINE VENIPUNCTURE CPT-4: 26772 07/02/2013 THER/PROPH/DIAG INJ SC/IM CPT-4: 30728 07/02/2013 PROMETHAZINE HCL INJECTION CPT-4: J2550 07/02/2013 PRESCRIP TRANSMIT VIA ERX SY CPT-4: G8553 07/02/2013 TRIAMCINOLONE ACET INJ NOS CPT-4: J3301 06/18/2013 THER/PROPH/DIAG INJ SC/IM CPT-4: 41203 06/18/2013 URINALYSIS NONAUTO W/O SCOPE CPT-4: 80868 06/18/2013 PRESCRIP TRANSMIT VIA ERX SY CPT-4: G8553 06/18/2013 VITAMIN B12 INJECTION CPT-4: J3420 02/15/2013 PRESCRIP TRANSMIT VIA ERX SY CPT-4: G8553 02/15/2013 ROUTINE VENIPUNCTURE CPT-4: 67774 12/05/2012 PRESCRIP TRANSMIT VIA ERX SY CPT-4: G8553 11/30/2012 Vital Signs Date Vital 07/06/2018 Blood Pressure 1: 140/78 Code : 8480-6 BMI: 29.3 Code : 94382-6 Heart Rate 1 : 71 bpm Height: 5'5" SpO2: 97% Weight: 176 lbs 06/07/2018 Blood Pressure 1: 134/64 Code : 8480-6 BMI: 29.3 Code : 07095-1 Heart Rate 1 : 96 bpm Height: 5'5" SpO2: 95% Weight: 176 lbs 04/28/2018 Blood Pressure 1: 128/74 Code : 8480-6 BMI: 29.8 Code : 10179-2 Heart Rate 1 : 70 bpm Height: 5'5" SpO2: 98% Weight: 179 lbs 04/03/2018 Blood Pressure 1: 130/72 Code : 8480-6 Heart Rate 1: 84 bpm Height: SpO2: 98% Weight: 10/18/2017 Blood Pressure 1: 134/84 Code : 8480-6 BMI: 29.0 Code : 33596-8 Heart Rate 1 : 71 bpm Height: 5'5" SpO2: 98% Weight: 174 lbs 08/31/2017 Blood Pressure 1: 134/76 Code : 8480-6 BMI: 29.5 Code : 75331-9 Heart Rate 1 : 78 bpm Height: 5'5" SpO2: 96% Weight: 177 lbs 06/21/2017 Blood Pressure 1: 136/82 Code : 8480-6 BMI: 29.6 Code : 43365-0 Heart Rate 1 : 76 bpm Height: 5'5" SpO2: 98% Weight: 178 lbs 06/14/2017 Blood Pressure 1: 132/74 Code : 8480-6 BMI: 29.0 Code : 25898-3 Heart Rate 1 : 71 bpm Height: 5'5" SpO2: 97% Weight: 174 lbs 05/13/2017 Blood Pressure 1: 122/80 Code : 8480-6 BMI: 29.6 Code : 46251-1 Heart Rate 1 : 88 bpm Height: 5'5" SpO2: 97% Temperature: 37.1 (C) / 98.7 (F) Weight: 178 lbs 11/30/2016 Blood Pressure 1: 136/70 Code : 8480-6 BMI: 31.6 Code : 28402-8 Heart Rate 1 : 74 bpm Height: 5'5" SpO2: 96% Weight: 190 lbs 11/16/2016 Blood Pressure 1: 124/76 Code : 8480-6 BMI: 32.1 Code : 08882-7 Heart Rate 1 : 94 bpm Height: 5'5" SpO2: 97% Weight: 193 lbs 06/10/2016 Blood Pressure 1: 128/86 Code : 8480-6 BMI: 30.3 Code : 52415-3 Heart Rate 1 : 88 bpm Height: 5'5" SpO2: 98% Weight: 182 lbs 04/13/2016 Blood Pressure 1: 102/56 Code : 8480-6 BMI: 30.5 Code : 19340-8 Heart Rate 1 : 63 bpm Height: 5'5" SpO2: 94% Weight: 183 lbs 03/22/2016 Blood Pressure 1: 138/78 Code : 8480-6 BMI: 30.5 Code : 10693-4 Heart Rate 1 : 63 bpm Height: 5'5" SpO2: 97% Weight: 183 lbs 03/02/2016 Blood Pressure 1: 122/72 Code : 8480-6 BMI: 30.8 Code : 96985-5 Heart Rate 1 : 71 bpm Height: 5'5" SpO2: 97% Weight: 185 lbs 02/23/2016 Blood Pressure 1: 146/86 Code : 8480-6 BMI: 30.3 Code : 54455-0 Heart Rate 1 : 100 bpm Height: 5'5" SpO2: 98% Weight: 182 lbs 01/09/2016 Blood Pressure 1: 138/74 Code : 8480-6 BMI: 31.6 Code : 65979-6 Heart Rate 1 : 83 bpm Height: 5'5" SpO2: 95% Weight: 190 lbs 12/09/2015 Blood Pressure 1: 140/70 Code : 8480-6 BMI: 30.5 Code : 54785-2 Heart Rate 1 : 73 bpm Height: 5'5" SpO2: 93% Weight: 183 lbs 11/14/2015 Blood Pressure 1: 174/84 Code : 8480-6 Blood Pressure 1: 156/84 Code: 8480-6 BMI: 31.6 Code: 38905-8 Heart Rate 1: 70 bpm Height: 5'5" SpO2: 97% Weight: 190 lbs 10/31/2015 Blood Pressure 1: 138/80 Code : 8480-6 BMI: 31.5 Code : 19210-9 Heart Rate 1 : 82 bpm Height: 5'5" SpO2: 98% Weight: 189 lbs 12/12/2014 Blood Pressure 1: 150/80 Code : 8480-6 BMI: 30.1 Code : 64060-4 Heart Rate 1 : 68 bpm Height: 5'5" Weight: 181 lbs 11/11/2014 Blood Pressure 1: 132/84 Code : 8480-6 BMI: 31.0 Code : 94503-0 Heart Rate 1 : 72 bpm Height: 5'5" Weight: 186 lbs 07/03/2014 Blood Pressure 1: 128/88 Code : 8480-6 BMI: 31.8 Code : 92366-3 Heart Rate 1 : 84 bpm Height: 5'5" SpO2: 96% Weight: 191 lbs 12/04/2013 Blood Pressure 1: 124/90 Code : 8480-6 BMI: 31.5 Code : 55620-2 Heart Rate 1 : 84 bpm Height: 5'5" Weight: 189 lbs 11/13/2013 Blood Pressure 1: 124/78 Code : 8480-6 BMI: 31.5 Code : 48016-1 Heart Rate 1 : 72 bpm Height: 5'5" Weight: 189 lbs 07/16/2013 Blood Pressure 1: 136/82 Code : 8480-6 BMI: 31.0 Code : 77194-2 Heart Rate 1 : 80 bpm Height: 5'5" Weight: 186 lbs 07/02/2013 Blood Pressure 1: 118/84 Code : 8480-6 BMI: 30.1 Code : 06087-7 Heart Rate 1 : 84 bpm Height: 5'5" SpO2: 98% Temperature: 36.3 (C) / 97.3 (F) Weight: 181 lbs 06/18/2013 Blood Pressure 1: 134/80 Code : 8480-6 BMI: 30.5 Code : 87919-0 Heart Rate 1 : 80 bpm Height: 5'5" Temperature: 36.1 (C) / 97.0 (F) Weight: 183 lbs 02/15/2013 Blood Pressure 1: 136/82 Code : 8480-6 BMI: 30.6 Code : 25195-3 Heart Rate 1 : 84 bpm Height: 5'5" Respiratory Rate: 16 bpm Weight: 184 lbs 12/15/2012 Blood Pressure 1: 140/78 Code : 8480-6 BMI: 31.5 Code : 99808-1 Heart Rate 1 : 68 bpm Height: 5'5" Weight: 189 lbs 11/30/2012 Blood Pressure 1: 132/70 Code : 8480-6 BMI: 31.7 Code : 27996-7 Heart Rate 1 : 84 bpm Height: [...] 02/15/2013 None depression Quality worsening 02/15/2013 thinks cyxiomyalta isn't working dyspepsia Severity severe 02/15/2013 None [...] R53.83] Diagnosis: Dysphonia[ICD10: R49.0] Cydney Sheridan MD, [facility] CPT-4: 09697 07/06/2018 66569 EST. PATIENT, LEVEL III Diagnosis: Low back pain[ICD10: M54.5] Diagnosis: Pain in right leg[ICD10: M79.604] Diagnosis: Paresthesia of skin[ICD10: R20.2] Cydney Sheridan MD, [facility] CPT -4: 26590 06/07/2018 44597 EST. PATIENT, LEVEL III Diagnosis: Trochanteric bursitis, right hip[ICD10: M70.61] Cydney Sheridan MD, [facility] CPT-4: 35387 04/28/2018 69348 EST. PATIENT, LEVEL III Diagnosis: Dizziness and giddiness[ICD10: R42] Diagnosis: Localized edema[ICD10: R60.0] Diagnosis: Other psoriasis[ICD10: L40.8] Cydney Sheridan MD, [facility] CPT-4 : 76054 04/03/2018 38228 EST. PATIENT, LEVEL III Diagnosis: Generalized anxiety disorder[ICD10: F41.1] Diagnosis: Major depressive disorder, single episode, moderate[ICD10: F32.1] Diagnosis: Other psoriasis[ICD10: L40.8] Diagnosis: Periapical abscess without sinus[ICD10: K04.7] Cydney Sheridan MD, [facility] CPT-4: 69209 10/18/2017 41725 EST. PATIENT, LEVEL III Diagnosis: Gastro-esophageal reflux disease without esophagitis[ICD10: K21.9] Diagnosis: Generalized anxiety disorder[ICD10: F41.1] Diagnosis: Major depressive disorder, single episode, moderate[ICD10: F32.1] Diagnosis: Other psoriasis[ICD10: L40.8] Cydney Sheridan MD, [facility] CPT-4 : 23838 08/31/2017 49002 EST. PATIENT, LEVEL III Diagnosis: Gastro-esophageal reflux disease without esophagitis[ICD10: K21.9] Diagnosis: Generalized anxiety disorder[ICD10: F41.1] Diagnosis: Major depressive disorder, single episode, moderate[ICD10: F32.1] Cydney Sheridan MD, [facility] CPT-4: 94479 06/21/2017 20039 EST. PATIENT, LEVEL IV Diagnosis: Other psoriasis[ICD10: L40.8] Diagnosis: Major depressive disorder, single episode, unspecified[ICD10: F32.9] Diagnosis: Other pruritus[ICD10: L29.8] Diagnosis: Gastro-esophageal reflux disease without esophagitis[ICD10: K21.9] Cydney Sheridan MD, [facility] CPT-4: 92519 06/14/2017 ([id number]) 01903 EST. PATIENT, LEVEL IV Diagnosis: Generalized abdominal pain[ICD10: R10.84] Diagnosis: Infectious gastroenteritis and colitis, unspecified[ICD10: A09] Diagnosis: Nausea[ICD10: R11.0] Ingrid Sheridan MD, [facility] CPT-4: 42087 05/13/2017 75261 EST. PATIENT, LEVEL III Diagnosis: Other psoriasis[ICD10: L40.8] Cydney Sheridan MD, [facility] CPT-4 : 67231 11/30/2016 28140 EST. PATIENT, LEVEL IV Diagnosis: Other psoriasis[ICD10: L40.8] Cydney Sherdian MD, [facility] CPT-4 : 72398 11/16/2016 ([id number]) 93165 EST. PATIENT, LEVEL III Diagnosis: Primary generalized (osteo)arthritis[ICD10: M15.0] Diagnosis: Other chronic pain[ICD10: G89.29] Ingrid Sheridan MD, [facility] CPT-4: 47289 06/10/2016 ([id number]) 74847 EST. PATIENT, LEVEL IV Diagnosis: Muscle weakness (generalized)[ICD10: M62.81] Diagnosis: Pain in right hand[ICD10: M79.641] Diagnosis: Pain in left hand[ICD10: M79.642] Diagnosis: Major depressive disorder, single episode, unspecified[ICD10: F32.9] Ingrid Sheridan MD, [facility] CPT-4: 87657 04/13/2016 ([id number]) 24101 EST. PATIENT, LEVEL III Diagnosis: Vitamin D deficiency, unspecified[ICD10: E55.9] Diagnosis: Cellulitis of chest wall[ICD10: L03.313] Abril Sheridan MD, [facility] CPT-4: 38863 03/22/2016 ([id number]) 80249 EST. PATIENT, LEVEL IV Diagnosis: Cellulitis of chest wall[ICD10: L03.313] Diagnosis: Pain in right wrist[ICD10: M25.531] Diagnosis: Muscle weakness (generalized)[ICD10: M62.81] Diagnosis: Major depressive disorder, single episode, unspecified[ICD10: F32.9] Abril Sheridan MD, [facility] CPT-4: 98485 03/02/2016 37475 EST. PATIENT, LEVEL IV Diagnosis: Pain in right wrist[ICD10: M25.531] Diagnosis: Tinea corporis[ICD10: B35.4] Diagnosis: Major depressive disorder, single episode, unspecified[ICD10: F32.9] Diagnosis: Vitamin D deficiency, unspecified[ICD10: E55.9] Cydney Sheridan MD, [facility] CPT-4: 26298 02/23/2016 ([id number]) 75444 EST. PATIENT, LEVEL III Diagnosis: Tinea corporis[ICD10: B35.4] Diagnosis: Pain in right wrist[ICD10: M25.531] Ingrid Sheridan MD, [facility] CPT-4: 43201 01/09/2016 ([id number]) 84937 EST. PATIENT, LEVEL III Diagnosis: Tinea corporis[ICD10: B35.4] Diagnosis: Nausea[ICD10: R11.0] Ingrid Sheridan MD, [facility] CPT-4: 23707 12/09/2015 ([id number]) 11698 EST. PATIENT, LEVEL III Diagnosis: Tinea corporis[ICD10: B35.4] Diagnosis: Rash and other nonspecific skin eruption[ICD10: R21] Ingrid Sheridan MD, [facility] CPT-4: 59895 11/14/2015 ([id number]) 21733 EST. PATIENT, LEVEL IV Diagnosis: Tinea corporis[ICD10: B35.4] Diagnosis: Rash and other nonspecific skin eruption[ICD10: R21] Diagnosis: Major depressive disorder, single episode, unspecified[ICD10: F32.9] Diagnosis: Vitamin B12 deficiency anemia, unspecified[ICD10: D51.9] Diagnosis: Vitamin D deficiency, unspecified[ICD10: E55.9] Diagnosis: Mixed hyperlipidemia[ICD10: E78.2] Ingrid Sheridan MD, [facility] CPT-4: 07366 10/31/2015 ([id number]) 24189 EST. PATIENT, LEVEL III Diagnosis: Biceps tendonitis[ICD9: 726.12] Abril Sheridan MD, [facility] CPT- 4: 78169 12/12/2014 ([id number]) 32635 EST. 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 PATIENT, LEVEL IV Diagnosis: Sleep-disordered breathing[ICD9: 780.59] Diagnosis: Fatigue[ICD9: 780.79] Diagnosis: Diaphoresis[ICD9: 780.8] Diagnosis: Tinea corporis[ICD9: 110.5] Abril Sheridan MD, [facility] CPT- 4: 53198 07/03/2014 ([id number]) 73905 EST. PATIENT, LEVEL IV Diagnosis: HYPERLIPIDEMIA[ICD9: 272.4] Diagnosis: DEPRESSIVE DISORDER NEC[ICD9: 311] Diagnosis: Rash[ICD9: 782.1] Diagnosis: Sciatica[ICD9: 724.3] Abril Sheridan MD, [facility] CPT-4: 07826 12/04/2013 ([id number]) 58031 EST. PATIENT, LEVEL III Diagnosis: Tinea corporis[ICD9: 110.5] Ingrid Mario Alberto Sheridan MD, [facility] CPT-4: 39306 11/13/2013 ([id number]) 49390 EST. PATIENT, LEVEL III Diagnosis: ESOPHAGEAL REFLUX[ICD9: 530.81] Diagnosis: Post menopausal syndrome[ICD9: V49.81] Abril Sheridan MD, [facility] CPT-4: 63150 07/16/2013 ([id number]) 60498 EST. PATIENT, LEVEL IV Diagnosis: ESOPHAGEAL REFLUX[ICD9: 530.81] Diagnosis: MALAISE AND FATIGUE[ICD9: 780.79] Diagnosis: Abdominal pain[ICD9: 789.00] Diagnosis: B12 DEFIC ANEMIA NEC[ICD9: 281.1] Abril Sheridan MD, [facility] CPT-4: 49589 07/02/2013 ([id number]) 74965 EST. PATIENT, LEVEL III Diagnosis: Acute back pain[ICD9: 724.5] Diagnosis: Chills[ICD9: 780.64] Diagnosis: Acute oral pain[ICD9: 528.9] Abril Sheridan MD, [facility] CPT- 4: 00031 06/18/2013 [id number] EST. PATIENT, LEVEL IV Diagnosis: ESOPHAGEAL REFLUX[ICD9: 530.81] Diagnosis: VITAMIN D DEFICIENCY[ICD9: 268.9] Diagnosis: Vitamin B12 deficiency[ICD9: 266.2] Diagnosis: Vitamin B12 deficiency (dietary) anemia[ICD9: 281.1] Diagnosis: DEPRESSIVE DISORDER NEC[ICD9: 311] Abril Sheridan MD, [facility] CPT-4: 96103 02/15/2013 ([id number]) 25579 EST. PATIENT, LEVEL IV Diagnosis: Hyperlipidemia[ICD9: 272.4] Diagnosis: VITAMIN D DEFICIENCY[ICD9: 268.9] Diagnosis: Elevated blood sugar[ICD9: 790.29] Diagnosis: Elevated blood pressure[ICD9: 796.2] Diagnosis: MALAISE AND FATIGUE[ICD9: 780.79] [facility] CPT-4: 60101 12/15/2012 ([id number]) 66784 EST. PATIENT, LEVEL III Diagnosis: ESOPHAGEAL REFLUX[ICD9: 530.81] Diagnosis: DEPRESSIVE DISORDER NEC[ICD9: 311] [facility] CPT-4: 51126 11/30/2012 Plan of Care Planned Activity Notes [...] as indicated. 07/06/2018 Appointment[facility]yd[id number] [place] ([facility] min) Moderate 07/06/2018 Patient Education: [...] try gabapentin 06/07/2018 App[facility]ment: [facility]yd[phone] [facility] [place] (15 min) Moderate 06/07/2018 Patient Education: Patient Medication Summary Completed 06/07/2018 Visit Plan: Bursitis - pt to do exercises as directed - stretching, anti-inflammatories to be started after 24 hours, and pt to use heat to the affected sites, pt to call if not improving. 04/28/2018 Appointment: Cydney Gilbert WPtel: [phone] [facility] (15 min) Moderate 04/28/2018 Patient Education: Patient [...] warmth, discharge. 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 08/31/2017 App[facility]ment: [facility] [phone] [facility] ([facility] min) Moderate 08/31/2017 Patient Education: [...] this patient. 06/21/2017 Appointment: Cydney Gilbert [id number] ([facility] min) Complex 06/21/2017 Patient Education: Patient Medication Summary Completed 06/21/2017 Care Plan: Referral Order SNOMED-CT : [id number] Pending 06/19/2017 Visit Plan: Psoriasis - Defer [...] not improved. 05/13/2017 Appointment: Ingrid Llanes WPtel: [id number] (10 min) Simple 05/13/2017 Patient Education: Patient Medication Summary Completed 05/13/2017 Patient Education: Patient Medication Summary Completed 01/13/2017 Appointment: Abril Sheridan WPtel: [facility] (15 min) Moderate 12/09/2016 Visit Plan: Psoriasis - symptoms have improved from previous appointment - she is wanting to start Otezla - Spoke with Dr. Woods office on the phone, they are OK with prescribing the medication - appointment date and time given to pt. Pt is to notify clinic with any questions or concerns. 11/30/2016 Appointment: Cydney Gilbert WPtel: [facility]66[facility] (30 min) Complex 11/30/2016 Patient Education: Patient [...] pruritus. 11/16/2016 Appointment: [phone] ([facility]) Complex 11/16/2016 Patient Education: Patient [...] Completed 06/10/2016 Appointment: Ingrid Llanes [facility]el[phone] (15 min) Moderate 06/04/2016 Visit Plan: Inflammation of multiple joints including wrists, hands and muscles aches of legs-recheck inflammatory markers plus uric acid, elle, rf-kenlaog injection today in the office-start prednisone taper tomorrow Njjwmxwsvv-cugktkvf-ig change in medication 04/13/2016 Patient Education: Patient [...] 02/26/2016 Care Plan: Referral Order SNOMED-CT : [id number] Pending 02/24/2016 Visit Plan: Right wrist pain [...] this patient. 02/23/2016 Appointment: Cydney Gilbert WPtel: [facility] (15 min) Moderate 02/23/2016 Patient Education: Patient Medication Summary Completed 02/23/2016 Patient Education: Obesity Completed 02/23/2016 Appointment: Ingrid Llanes WPtel: [address] [place], [place] [id number] (15 min) Moderate 01/29/2016 Visit Plan: Tinea-start [...] instructed on use-follow up in 2 weeks Dxjdrlfccg-vjnripkkn-mfl vitamin B12 and folic acid-check labs Hyerlipidemia- check labs 10/31/2015 Appointment: Ingrid Llanes WPtel: [address] [place], [place] [phone] (15 min) Moderate 10/31/2015 Patient Education: Patient Medication Summary Completed 10/31/2015 Visit Plan: Biceps tendinitis - pt to do exercises as directed, ant-inflammatories directed to be taken per RX instructions and pt to call if symptoms are not improved. 12/12/2014 Appointment: Abril Sheridan WPtel: [address] [place], [place] [phone] Follow up 12/12/2014 Patient Education: Patient Medication Summary Completed 12/12/2014 Appointment: Abril Sheridan WPtel: [address] [place], [place] [phone] [place] [address] follow up 12/11/2014 Visit Plan: Hyperlipidemia - [...] diflucan. 11/11/2014 Appointment: Abril Sheridan WPtel: [address] [place], [place] [phone] Follow up 11/11/2014 Patient Education: Patient Medication Summary Completed 11/11/2014 Care Plan: COMPLETE CBC AUTOMATED LOINC : 62770-1 Ordered 11/11/2014 Appointment: Abril Sheridan WPtel: [address] [place], [place] [address] [place] Follow up 11/04/2014 Visit Plan: Sleep disordered breathing - recommended appt for sleep apnea evaluation - appt with gallo on 07/16/14 @240pm Tinea - RX sent electronically to the pt's pharmacy. 07/03/2014 Appointment: Abril Sheridan WPtel: [address] [place], [place] [phone] Follow up 07/03/2014 Patient Education: Patient Medication [...] check labs. 12/04/2013 Appointment: Abril Sheridan WPtel: [address] [place], [place] [phone] [place] Other 12/04/2013 Patient Education: Patient Medication Summary Completed 12/04/2013 Visit Plan: Tinea-discussed natural and expected course of this diagnosis and to alert me if symptoms do not follow expected course, or if any worse, RX sent to patient's pharmacy and instructed on use. Patient verbalized understanding of plan. 11/13/2013 Appointment: Ingrid Llanes WPtel: [address] [place] [id number] [place] Other 11/13/2013 Patient Education: Patient Medication Summary Completed 11/13/2013 Appointment: Abril Sheridan WPtel: [address] [place], [place] [address] [place] Follow up 10/16/2013 Visit Plan: Esophageal [...] improving. 07/16/2013 Appointment: Abril Sheridan WPtel: [phone] [facility] Follow up 07/16/2013 Patient Education: Patient Medication [...] not improve. 07/02/2013 Appointment: Abril Sheridan WPtel: [facility] Other 07/02/2013 Patient Education: Patient Medication Summary [...] not improving. 06/18/2013 Appointment: Abril Sheridan WPtel: [facility] Other 06/18/2013 Patient Education: Patient Medication Summary Completed 06/18/2013 Appointment: [phone] Follow up 03/01/2013 Visit Plan: Esophageal Reflux [...] units daily. 02/15/2013 Appointment: Abril Sheridan [facility]el[phone] Follow up 02/15/2013 Patient Education: Patient Medication [...] as well. 12/15/2012 Appointment: In[facility] Llanes [facility]Ptel[phone] Follow up 12/15/2012 Patient Education: Patient Medication [...] current medications. 11/30/2012 Appointment: Abril Sheridan WPtel: [facility] New Patient 11/30/2012 Patient Education: Patient Medication Summary Completed 11/30/2012 Appointment: Abril Sheridan WPtel: [facility] New Patient 10/24/2012 [facility] Referral: Raghav Perales Referral Initiated [...] warmth, discharge. Vitamin D 5000 units daily [employer] home - get two old [...] at appt a few days ago . 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 cbc, cmp CT ABD/PELVIS Clear liquid diet-advance as tolerated . Infectious enteritis - discussed need to stay away from milk products while acutely ill with diarrhea and nausea and emesis as it may worsen the symptoms. Liquids initially until the nausea improves, then recommend to advance to bland diet for 1 day, then advance as tolerated. Call if symptoms not improved. LEVAQUIN 500MG DAILY X 10 DAYS KEEP CLEAN AND DRY STOP USING MUPIROCIN OINTMENT-USE ONLY THE NYSTATIN POWDER LET AIR OUT WHEN ABLE FOLLOW UP IN 10 DAYS PRESCRIPTION FOR HYDROXYZINE TO USE NEEDED AT BEDTIME FOR ITCHING . Rash- culture grew pseudomonas-recommend repeat course of levaquin-continue nystatin powder and keep clean/dry. Follow up in 10 days . Tinea-continue Diflucan-start clotrimazole as directed Gastroenteritis-symptoms [...] today in the office-start prednisone taper tomorrow Tirroffvab-piwpvmmm-ep change in medication . Bursitis - pt [...] notify clinic with any questions or concerns. CALL TUESDAY WITH UPDATE . Son-discussed natural [...] repeat in 3 months as well. . Back pain - uncertain eitiology - [...] vitamin d supplementation. Hyperlipidemia - check labs. Will change from Cymbalta to Lexapro - [...] instructed on use-follow up in 2 weeks Cqevrykbfd-ozjbpqtjz-agh vitamin B12 and folic acid-check labs Hyerlipidemia-check [...] and understands the consequences of over-medication. . Low back pain- pt to consider [...] if no improvement will try gabapentin . Tinea-start triamcinolone/ketoconazole cream twice daily Right wrist pain-xray wrist . Sleep disordered breathing - recommended appt [...]
--- NOTE | 2018-12-23 17:48 | NUR ---
PT STARTED TO GET VERY ANXIOUS, DIAPHORETIC, AND HYPERVENTILATING. PT STATES SHE FEELS LIKE SHE IS GOING TO PASS OUT. TALKED PT THROUGH DEEP SLOW BREATHING. PT IS SCARED
--- OUTSIDE RECORDS SUMMARY | 2018-12-23 17:54 | XMS REPORT | Continuity of Care Document ---
Author Author [facility] Organization [facility] Address Unknown Phone Unavailable Allergies Active Description Code Type Severity Reaction Onset Reported/Identified Relationship to Patient Clinical Status Yes codeine [id number] Drug Allergy Unknown Hives 11/21/2017 Yes Penicillins [id number] Drug Allergy Unknown Hives 11/21/2017 Yes codeine [id number] Drug Allergy Unknown RASH, ITCHING 05/25/2018 Yes Penicillins [id number] Drug Allergy Mild RASH, ITCHING 05/25/2018 Medications There is no data. Problems Date Dx Coded Attending Type Code Diagnosis Diagnosed By 09/01/1532 SATINDER AYERS Ot M54.16 RADICULOPATHY, LUMBAR REGION 10/17/2010 Ot 446.5 10/17/2010 Ot 780.4 10/28/2010 [...] Ot 733.90 11/15/2014 Ot V82.81 11/15/2014 KARIN BELLC, ALI FACP CCDS Ot 530.81 11/15/2014 KARIN MUSTAFA FACC, ALI FACP CCDS Ot 627.2 11/15/2014 KARIN MUSTAFA FACC, ALI FACP CCDS Ot 780.79 11/15/2014 KARIN MUSTAFA FACC, ALI FACP CCDS Ot 786.09 11/15/2014 KARIN MUSTAFA FACC, ALI FACP CCDS Ot 786.50 11/15/2014 KARIN MUSTAFA FACC, ALI FACP CCDS Ot 530.81 11/15/2014 KARIN BELLC, ALI FACP CCDS Ot 627.2 11/15/2014 KARIN BELLC, ALI FACP CCDS Ot 780.79 11/15/2014 KARIN [...] Ot 733.90 11/25/2014 Ot V82.81 11/25/2014 KARIN MUSTAAF FACC, ALI FACP CCDS Ot 530.81 11/25/2014 [...] Ot 733.90 11/06/2015 Ot V82.81 11/06/2015 KARIN BELLC, ALI FACP CCDS Ot [...] ALI FACP CCDS Ot 786.09 11/06/2015 KARIN BELL, ALI FACP CCDS Ot 786.50 11/06/2015 GUSTAVO MUSTAFA, JUAN A Ot 785.9 11/06/2015 Ot 173.0 11/06/2015 Ot 173.3 11/06/2015 Ot 780.79 11/06/2015 Ot V72.63 11/06/2015 Ot V72.81 11/06/2015 Ot V74.8 11/06/2015 Ot 530.81 11/06/2015 Ot 553.3 11/06/2015 Ot 723.1 11/06/2015 Ot 787.20 11/06/2015 Ot 433.10 11/06/2015 Ot 268.9 11/06/2015 Ot 733.90 11/06/2015 Ot V82.81 11/06/2015 KARIN MUSTAFA [facility], ALI FACP CCDS Ot 530.81 11/06/2015 KARIN MUSTAFA [facility], ALI FACP CCDS Ot 627.2 11/06/2015 KARIN MUSTAFA [facility], ALI FACP CCDS Ot 780.79 11/06/2015 KARIN MUSTAFA [facility], ALI FACP CCDS Ot 786.09 11/06/2015 KARIN MUSTAFA [facility], ALI FACP CCDS Ot 786.50 11/06/2015 KARIN MUSTAFA [facility], ALI FACP CCDS Ot 530.81 11/06/2015 KARIN MUSTAFA [facility], ALI FACP CCDS Ot 627.2 11/06/2015 KARIN MUSTAFA [facility], ALI FACP CCDS Ot 780.79 11/06/2015 KARIN MUSTAFA [facility], ALI FACP CCDS Ot 786.09 11/06/2015 KARIN MUSTAFA [facility], ALI FACP CCDS Ot 786.50 11/06/2015 GUSTAVO MUSTAFA, JUAN Monterroso Ot 785.9 11/11/2015 GUSTAVO MUSTAFA, JUAN A Ot 785.9 11/27/2015 BLADIMIR ARCE Ot I65.23 11/30/2015 BRITT MUSTAFA, SATINDER Parra Ot M79.1 MYALGIA 11/30/2015 BRITT MUSTAFA, SATINDER Parra Ot N28.1 CYST OF KIDNEY, ACQUIRED 11/30/2015 BRITT MUSTAFA, SATINDER Parra Ot R10.11 RIGHT UPPER QUADRANT PAIN 11/30/2015 BRITT MUSTAFA, SATINDER T Ot R11.2 NAUSEA WITH VOMITING, UNSPECIFIED 11/30/2015 BRITT MUSTAFA, SATINDER T Ot R19.7 DIARRHEA, UNSPECIFIED 11/30/2015 BRITT MUSTAFA, SATINDER T Ot Z98.1 ARTHRODESIS STATUS 12/12/[address] RADIO TECHNICIAN Ot I65.23 01/12/[address] RADIO TECHNICIAN Ot M19.031 01/15/[address] RADIO TECHNICIAN Ot M19.031 01/16/2016 BRITT MUSTAFA, SATINDER T Ot M79.1 MYALGIA 01/16/2016 BRITT MUSTAFA, SATINDER T Ot N28.1 CYST OF KIDNEY, ACQUIRED 01/16/2016 BRITT MUSTAFA, SATINDER T Ot R10.11 RIGHT UPPER QUADRANT PAIN 01/16/2016 BRITT MUSTAFA, SATINDER T Ot R11.2 NAUSEA WITH VOMITING, UNSPECIFIED 01/16/2016 BRITT MUSTAFA, SATINDER T Ot R19.7 DIARRHEA, UNSPECIFIED 01/16/2016 BRITT MUSTAFA, SATINDER T Ot Z98.1 ARTHRODESIS STATUS 01/29/[address] RADIO TECHNICIAN Ot M19.031 PRIMARY OSTEOARTHRITIS, RIGHT WRIST [...] Ot Z98.1 ARTHRODESIS STATUS 02/19/[address] RADIO TECHNICIAN Ot M19.031 PRIMARY OSTEOARTHRITIS, RIGHT WRIST 02/20/2016 THALIA HU BUDGET MANAGER Ot M25.521 PAIN IN RIGHT ELBOW 02/20/2016 THALIA HU APRN Ot M79.631 PAIN IN RIGHT FOREARM 03/19/2016 MIGUEL DO, LISA W Ot M25.531 PAIN IN RIGHT WRIST 03/19/2016 MIGUEL DO, LISA W Ot M25.531 PAIN IN RIGHT WRIST 04/09/2016 MIGUEL DO, LISA W Ot M24.831 OTH SPECIFIC JOINT DERANGEMENTS OF RIGHT 04/09/2016 MIGUEL DO, LISA W Ot M25.531 PAIN IN RIGHT WRIST 04/09/2016 MIGUEL DO, LISA W Ot M65.841 OTHER SYNOVITIS AND TENOSYNOVITIS, RIGHT 04/21/2016 MIGUEL DO, LISA W Ot M24.831 OTH SPECIFIC JOINT DERANGEMENTS OF RIGHT 04/21/2016 MIGUEL DO, LISA W Ot M25.531 PAIN IN RIGHT WRIST 04/21/2016 MIGUEL DO, LISA W Ot M65.841 OTHER SYNOVITIS AND TENOSYNOVITIS, RIGHT 05/13/2017 Ot 433.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 W O CEREBRAL IN 05/13/2017 Ot 268.9 VITAMIN D DEFICIENCY NOS 05/13/2017 Ot 733.90 BONE CARTILAGE DIS NOS 05/13/2017 Ot V82.81 SCREENING FOR OSTEOPOROSIS 05/13/2017 KARIN MUSTAFA FACC, YULIET FACP CCDS Ot 530.81 ESOPHAGEAL REFLUX 05/13/2017 KARIN MUSTAFA FACC, YULIET FACP CCDS Ot 627.2 SYMPT MENOPAUSE OR FEMALE CLIMACTERIC ST 05/13/2017 KARIN MUSTAFA FACC, ALI FACP CCDS Ot 780.79 OTH MALAISE FATIGUE 05/13/2017 KARIN MUSTAFA FACC, ALI FACP CCDS Ot 786.09 RESPIRATORY ABNORM NEC 05/13/2017 KARIN MUSTAFA FACC, ALI FACP CCDS Ot 786.50 CHEST PAIN NOS 05/13/2017 KARIN MUSTAFA FACC, ALI FACP CCDS Ot 530.81 ESOPHAGEAL REFLUX 05/13/2017 KARIN MUSTAFA FACC, YULIET FACP CCDS Ot 627.2 SYMPT MENOPAUSE OR FEMALE CLIMACTERIC ST 05/13/2017 KARIN MUSTAFA FACC, ALI FACP CCDS Ot 780.79 OTH MALAISE FATIGUE 05/13/2017 KARIN MUSTAFA FACC, ALI FACP CCDS Ot 786.09 RESPIRATORY ABNORM NEC 05/13/2017 KARIN MUSTAFA FACC, ALI FACP CCDS Ot 786.50 CHEST PAIN NOS 05/13/2017 GUSTAVO MUSTAFA, JUAN Monterroso Ot 785.9 CARDIOVAS SYS SYMP NEC 05/13/[address] RADIO TECHNICIAN Ot I65.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 AND STENOSIS OF BILATERAL BUCK 05/13/[address] RADIO TECHNICIAN Ot M19.031 PRIMARY OSTEOARTHRITIS, RIGHT WRIST 05/13/2017 THALIA HU BUDGET MANAGER Ot M25.521 PAIN IN RIGHT ELBOW 05/13/2017 THALIA HU BUDGET MANAGER Ot M79.631 PAIN IN RIGHT FOREARM 05/13/2017 MIGUEL DOLISA W Ot M24.831 OTH SPECIFIC JOINT DERANGEMENTS OF RIGHT 05/13/2017 MIGUEL DO LISA W Ot M25.531 PAIN IN RIGHT WRIST 05/13/2017 MIGUEL DOLISA W Ot M65.841 OTHER SYNOVITIS AND TENOSYNOVITIS, RIGHT 05/16/[address] RADIO TECHNICIAN Ot K44.9 DIAPHRAGMATIC HERNIA WITHOUT OBSTRUCTION 05/16/[address] RADIO TECHNICIAN Ot K52.9 NONINFECTIVE GASTROENTERITIS AND COLITIS 05/16/[address] RADIO TECHNICIAN Ot K76.0 FATTY (CHANGE OF) LIVER, NOT ELSEWHERE C 05/16/[address] RADIO TECHNICIAN Ot N28.1 CYST OF KIDNEY, ACQUIRED 05/16/[address] RADIO TECHNICIAN Ot Z90.49 ACQUIRED ABSENCE OF OTHER SPECIFIED PART 05/16/[address] RADIO TECHNICIAN Ot Z96.641 PRESENCE OF RIGHT ARTIFICIAL HIP JOINT 06/07/[address] RADIO TECHNICIAN Ot K44.9 DIAPHRAGMATIC HERNIA WITHOUT OBSTRUCTION 06/07/[address] RADIO TECHNICIAN Ot K52.9 NONINFECTIVE GASTROENTERITIS AND COLITIS 06/07/[address] RADIO TECHNICIAN Ot K76.0 FATTY (CHANGE OF) LIVER, NOT ELSEWHERE C 06/07/[address] RADIO TECHNICIAN Ot N28.1 CYST OF KIDNEY, ACQUIRED 06/07/[address] RADIO TECHNICIAN Ot Z90.49 ACQUIRED ABSENCE OF OTHER SPECIFIED PART 06/07/[address] RADIO TECHNICIAN Ot Z96.641 PRESENCE OF RIGHT ARTIFICIAL HIP JOINT 07/08/[address] RADIO TECHNICIAN Ot K44.9 DIAPHRAGMATIC HERNIA WITHOUT OBSTRUCTION 07/08/[address] RADIO TECHNICIAN Ot K52.9 NONINFECTIVE GASTROENTERITIS AND COLITIS 07/08/[address] RADIO TECHNICIAN Ot K76.0 FATTY (CHANGE OF) LIVER, NOT ELSEWHERE C 07/08/[address] RADIO TECHNICIAN Ot N28.1 CYST OF KIDNEY, ACQUIRED 07/08/[address] RADIO TECHNICIAN Ot Z90.49 ACQUIRED ABSENCE OF OTHER SPECIFIED PART 07/08/[address] RADIO TECHNICIAN Ot Z96.641 PRESENCE OF RIGHT ARTIFICIAL HIP JOINT 07/11/2017 BAYLEE MUSTAFA, TREVOR Cuellar Ot K21.9 GASTRO-ESOPHAGEAL REFLUX DISEASE WITHOUT 07/11/2017 [...] OTHER PREPROCEDURAL EXAMIN 07/21/2017 TREVOR BEACH MD M Ot Z12.11 ENCOUNTER FOR SCREENING FOR MALIGNANT NE 07/25/2017 TREVOR [place] MD Ot E78.00 PURE HYPERCHOLESTEROLEMIA, UNSPECIFIED 07/25/2017 T[place]OR [place] MD Ot F32.9 MAJOR DEPRESSIVE DISORDER, SINGLE EPISOD 07/25/2017 T[place]OR [place] MD Ot F41.9 ANXIETY DISORDER, UNSPECIFIED 07/25/2017 T[place]OR [place] MD M Ot K25.9 GASTRIC ULCER, UNSP ACUTE OR CHRONIC, 07/25/2017 BAYLEE MUSTAFA, TREVOR Cuellar Ot K29.70 GASTRITIS, UNSPECIFIED, WITHOUT BLEEDING 07/25/2017 BAYLEE MUSTAFA, TREVOR Cuellar Ot K44.9 DIAPHRAGMATIC HERNIA WITHOUT OBSTRUCTION 07/25/2017 BAYLEE MUSTAFA, TERVOR Cuellar Ot K63.5 POLYP OF COLON 07/25/2017 BAYLEE MUSTAFA, TREVOR Cuellar Ot Z86.010 PERSONAL HISTORY OF COLONIC POLYPS 07/25/2017 BAYLEE MUSTAFA, TREVOR Cuellar Ot Z87.891 PERSONAL HISTORY OF NICOTINE DEPENDENCE 11/21/2017 ROVENSTINE HUMBLE CASTRO Other K02.9 DENTAL CARIES, UNSPECIFIED 11/21/2017 ROVENSTINE HUMBLE CASTRO Other K08.89 OTHER SPECIFIED DISORDERS OF TEETH [...] 786.09 RESPIRATORY ABNORM NEC 04/13/2018 KARIN MUSTAFA FACCarmita, ALI FACP CCDS Ot 786.50 CHEST PAIN [...] Ot 785.9 CARDIOVAS SYS SYMP NEC 04/13/2018 ARCE, BLADIMIR M TWO WAY RADIO TECHNICIAN Ot I65.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 AND STENOSIS OF BILATERAL BUCK 04/13/[address] RADIO TECHNICIAN Ot M19.031 PRIMARY OSTEOARTHRITIS, RIGHT WRIST 04/13/2018 THALIA HU BUDGET MANAGER Ot M25.521 PAIN IN RIGHT ELBOW 04/13/2018 THALIA HU BUDGET MANAGER Ot M79.631 PAIN IN RIGHT FOREARM 04/13/2018 MIGUEL DO ILSA W Ot M24.831 OTH SPECIFIC JOINT DERANGEMENTS OF RIGHT 04/13/2018 MIGUEL DO, LISA W Ot M25.531 PAIN IN RIGHT WRIST 04/13/2018 MIGUEL DO LISA W Ot M65.841 OTHER SYNOVITIS AND TENOSYNOVITIS, RIGHT 04/13/[address] RADIO TECHNICIAN Ot K44.9 DIAPHRAGMATIC HERNIA WITHOUT OBSTRUCTION 04/13/[address] RADIO TECHNICIAN Ot K52.9 NONINFECTIVE GASTROENTERITIS AND COLITIS 04/13/[address] RADIO TECHNICIAN Ot K76.0 FATTY (CHANGE OF) LIVER, NOT ELSEWHERE C 04/13/[address] RADIO TECHNICIAN Ot N28.1 CYST OF KIDNEY, ACQUIRED 04/13/[address] RADIO TECHNICIAN Ot Z90.49 ACQUIRED ABSENCE OF OTHER SPECIFIED PART 04/13/[address] RADIO TECHNICIAN Ot Z96.641 PRESENCE OF RIGHT ARTIFICIAL HIP JOINT 04/13/2018 BAYLEE MUSTAFA, TREVOR Cuellar Ot K21.9 GASTRO-ESOPHAGEAL REFLUX DISEASE WITHOUT 04/13/2018 BAYLEE MUSTAFA, TREVOR Cuellar Ot Z01.818 ENCOUNTER FOR OTHER PREPROCEDURAL EXAMIN 04/13/2018 TREVOR BEACH MD Ot Z12.11 ENCOUNTER FOR SCREENING FOR MALIGNANT NE 04/13/2018 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 Ot I65.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 AND STENOSIS OF BILATERAL BUCK 04/17/2018 TORRES GREENE APRN Ot R09.89 OTH SYMPTOMS AND SIGNS INVOLVING THE CIR 05/25/2018 MIGUEL BARBOZA MD Ot Z01.818 ENCOUNTER FOR OTHER PREPROCEDURAL EXAMIN 05/29/2018 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 Ot M25.551 PAIN IN RIGHT HIP 05/29/2018 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 Ot M79.651 PAIN IN RIGHT THIGH 05/29/2018 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 Ot R20.0 ANESTHESIA OF SKIN 05/29/2018 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 Ot R53.1 WEAKNESS 05/29/2018 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 Ot Z90.710 ACQUIRED ABSENCE OF BOTH CERVIX AND UTER 05/29/2018 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 Ot Z96.641 PRESENCE OF RIGHT ARTIFICIAL HIP JOINT 05/30/2018 MIGUEL BARBOZA MD Ot H25.811 COMBINED FORMS OF AGE-RELATED CATARACT, 05/30/2018 MIGUEL BARBOZA MD Ot K21.9 GASTRO-ESOPHAGEAL REFLUX DISEASE WITHOUT 06/01/2018 MIGUEL BARBOZA MD Ot H25.811 COMBINED FORMS OF AGE-RELATED CATARACT, 06/01/2018 MIGUEL BARBOZA MD Ot K21.9 GASTRO-ESOPHAGEAL REFLUX DISEASE WITHOUT 06/02/2018 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 Ot M25.551 PAIN IN RIGHT HIP 06/02/2018 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 Ot M79.651 PAIN IN RIGHT THIGH 06/02/2018 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 Ot R20.0 ANESTHESIA OF SKIN 06/02/2018 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 Ot R53.1 WEAKNESS 06/02/2018 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 Ot Z90.710 ACQUIRED ABSENCE OF BOTH CERVIX AND UTER 06/02/2018 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 Ot Z96.641 PRESENCE OF RIGHT ARTIFICIAL HIP JOINT 06/14/2018 MIGUEL BARBOZA MD Ot Z01.818 ENCOUNTER FOR OTHER PREPROCEDURAL EXAMIN 06/15/2018 MIGUEL BARBOZA MD Ot Z01.818 ENCOUNTER FOR OTHER PREPROCEDURAL EXAMIN 06/15/2018 TORERS GREENE APRN Ot R09.89 OTH SYMPTOMS AND SIGNS INVOLVING THE CIR 06/16/2018 MIGUEL BARBOZA MD Ot F32.9 MAJOR DEPRESSIVE DISORDER, SINGLE EPISOD 06/16/2018 MIGUEL BARBOZA MD Ot F41.9 ANXIETY DISORDER, UNSPECIFIED 06/16/2018 MIGUEL BARBOZA MD Ot H25.12 AGE-RELATED NUCLEAR CATARACT, LEFT EYE 06/16/2018 MIGUEL BARBOZA MD Ot Z79.899 OTHER ALF (CURRENT) DRUG THERAPY 06/20/2018 TAMRA MUSTAFA, MIGUEL L Ot F32.9 MAJOR DEPRESSIVE DISORDER, SINGLE EPISOD 06/20/2018 TAMRA MUSTAFA, MIGUEL L Ot F41.9 ANXIETY DISORDER, UNSPECIFIED 06/20/2018 TAMRA MUSTAFA, MIGUEL L Ot H25.12 AGE-RELATED NUCLEAR CATARACT, LEFT EYE 06/20/2018 TAMRA MUSTAFA, MIGUEL L Ot Z79.899 OTHER ALF (CURRENT) DRUG THERAPY 06/21/2018 TAMRA MUSTAFA, MIGUEL L Ot F32.9 MAJOR DEPRESSIVE DISORDER, SINGLE EPISOD 06/21/2018 TAMRA MUSTAFA, MIGUEL L Ot F41.9 ANXIETY DISORDER, UNSPECIFIED 06/21/2018 TAMRA MUSTAFA, MIGUEL L Ot H25.12 AGE-RELATED NUCLEAR CATARACT, LEFT EYE 06/21/2018 TAMRA MUSTAFA, MIGUEL L Ot Z79.899 OTHER DIRECTOR UTILIZATION MANAGEMENT (CURRENT) DRUG THERAPY 06/22/2018 MIGUEL BARBOZA MD Ot F32.9 MAJOR DEPRESSIVE DISORDER, SINGLE EPISOD 06/22/2018 TAMRA MUSTAFA, MIGUEL L Ot F41.9 ANXIETY DISORDER, UNSPECIFIED 06/22/2018 TAMRA MUSTAFA, MIGUEL L Ot H25.12 AGE-RELATED NUCLEAR CATARACT, LEFT EYE 06/22/2018 TAMRA MUSTAFA, MIGUEL L Ot Z79.899 OTHER ALF (CURRENT) DRUG THERAPY 06/22/2018 TORRES GREENE APRN Ot M25.551 PAIN IN RIGHT HIP 06/22/2018 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 Ot Z96.643 PRESENCE OF ARTIFICIAL HIP JOINT, BILATE 06/23/2018 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 Ot M25.551 PAIN IN RIGHT HIP 06/23/2018 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 Ot M79.651 PAIN IN RIGHT THIGH 06/23/2018 TORRES GREENE APRN Ot R20.0 ANESTHESIA OF SKIN 06/23/2018 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 Ot R53.1 WEAKNESS 06/23/2018 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 Ot Z90.710 ACQUIRED ABSENCE OF BOTH CERVIX AND UTER 06/23/2018 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 Ot Z96.641 PRESENCE OF RIGHT ARTIFICIAL HIP JOINT 07/07/2018 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 Ot M25.551 PAIN IN RIGHT HIP 07/07/2018 TORRES GREENE Alisa BUDGET MANAGER Ot Z96.643 PRESENCE OF ARTIFICIAL HIP JOINT, BILATE 07/07/2018 JCTORRES BUDGET MANAGER Ot M25.551 PAIN IN RIGHT HIP 07/07/2018 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 Ot M79.651 PAIN IN RIGHT THIGH 07/07/2018 TORRES GREENE Alisa BUDGET MANAGER Ot R20.0 ANESTHESIA OF SKIN 07/07/2018 JCTORRES Alisa BUDGET MANAGER Ot R53.1 WEAKNESS 07/07/2018 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 Ot Z90.710 ACQUIRED ABSENCE OF BOTH CERVIX AND UTER 07/07/2018 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 Ot Z96.641 PRESENCE OF RIGHT ARTIFICIAL HIP JOINT 08/02/2018 KARIN MUSTAFA FACC, ALI FACP CCDS [...] CARDIOVAS SYS SYMP NEC 08/02/[address] RADIO TECHNICIAN Ot I65.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 AND STENOSIS OF BILATERAL BUCK 08/02/[address] RADIO TECHNICIAN Ot M19.031 PRIMARY OSTEOARTHRITIS, RIGHT WRIST 08/02/2018 THALIA HU BUDGET MANAGER Ot M25.521 PAIN IN RIGHT ELBOW 08/02/2018 THALIA HU BUDGET MANAGER Ot M79.631 PAIN IN RIGHT FOREARM 08/02/2018 MIGUEL CASTRO LISA Alexander Ot M24.831 OTH SPECIFIC JOINT DERANGEMENTS OF RIGHT 08/02/2018 MIGUEL CASTRO LISA Alexander Ot M25.531 PAIN IN RIGHT WRIST 08/02/2018 MIGUEL CASTRO LISA Alexander Ot M65.841 OTHER SYNOVITIS AND TENOSYNOVITIS, RIGHT 08/02/[address] RADIO TECHNICIAN Ot K44.9 DIAPHRAGMATIC HERNIA WITHOUT OBSTRUCTION 08/02/[address] RADIO TECHNICIAN Ot K52.9 NONINFECTIVE GASTROENTERITIS AND COLITIS 08/02/[address] RADIO TECHNICIAN Ot K76.0 FATTY (CHANGE OF) LIVER, NOT ELSEWHERE C 08/02/[address] RADIO TECHNICIAN Ot N28.1 CYST OF KIDNEY, ACQUIRED 08/02/[address] RADIO TECHNICIAN Ot Z90.49 ACQUIRED ABSENCE OF OTHER SPECIFIED PART 08/02/[address] RADIO TECHNICIAN Ot Z96.641 PRESENCE OF RIGHT ARTIFICIAL [...] PAIN IN RIGHT HIP 08/02/2018 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 Ot Z96.643 PRESENCE OF ARTIFICIAL HIP JOINT, BILATE 08/02/2018 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 Ot M25.551 PAIN IN RIGHT HIP 08/02/2018 TORRES GREENE APRN Ot M79.651 PAIN IN RIGHT THIGH 08/02/2018 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 Ot R20.0 ANESTHESIA OF SKIN 08/02/2018 TORRES GREENE APRN Ot R53.1 WEAKNESS 08/02/2018 TORRES GREENE APRN Ot Z90.710 ACQUIRED ABSENCE OF BOTH CERVIX AND UTER 08/02/2018 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 Ot Z96.641 PRESENCE OF RIGHT ARTIFICIAL HIP JOINT 08/02/2018 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 Ot M47.817 SPONDYLS W/O MYELOPATHY OR RADICULOPATHY 08/07/2018 SWEET PA, SATINDER R Ot 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, VERTEBRAE 08/07/2018 SWEET PA, SATINDER R Ot M43.16 SPONDYLOLISTHESIS, LUMBAR REGION 08/07/2018 SWEET PA, SATINDER R Ot M47.816 SPONDYLOSIS W/O MYELOPATHY OR RADICULOPA 08/07/2018 SWEET PA, SATINDER R Ot M48.07 SPINAL STENOSIS, LUMBOSACRAL REGION 08/07/2018 SWEET PA, SATINDER R Ot M51.36 OTHER INTERVERTEBRAL DISC DEGENERATION, 08/07/2018 SWEET PA, SATINDER R Ot M99.73 CONN TISS AND DISC STENOS OF INTVRT FORA 08/07/2018 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 Ot M47.817 SPONDYLS W/O MYELOPATHY OR RADICULOPATHY 09/06/2018 SWEET PA, SATINDER R Ot M54.16 RADICULOPATHY, LUMBAR REGION 09/19/2018 FRANK DEUTSCH BUDGET MANAGER Ot E78.00 PURE HYPERCHOLESTEROLEMIA, UNSPECIFIED 09/19/2018 FRANK DEUTSCH BUDGET MANAGER Ot F32.9 MAJOR DEPRESSIVE DISORDER, SINGLE EPISOD 09/19/2018 FRANK DEUTSCH BUDGET MANAGER Ot F41.9 ANXIETY DISORDER, UNSPECIFIED 09/19/2018 FRANK DEUTSCH BUDGET MANAGER Ot K21.9 GASTRO-ESOPHAGEAL REFLUX DISEASE WITHOUT 09/19/2018 FRANK DEUTSCH APRN Ot R53.1 WEAKNESS 09/19/2018 FRANK DEUTSCH BUDGET MANAGER Ot R55 SYNCOPE AND COLLAPSE 09/19/2018 FRANK DEUTSCH APRN Ot Z85.828 PERSONAL HISTORY OF OTHER MALIGNANT NEOP 09/19/2018 FRANK DEUTSCH BUDGET MANAGER Ot Z88.0 ALLERGY STATUS TO PENICILLIN 09/19/2018 FRANK DEUTSCH BUDGET MANAGER Ot Z88.5 ALLERGY STATUS TO NARCOTIC AGENT STATUS 09/19/2018 FRANK DEUTSCH BUDGET MANAGER Ot Z90.710 ACQUIRED ABSENCE OF BOTH CERVIX AND UTER 09/19/2018 FRANK DEUTSCH BUDGET MANAGER Ot Z98.890 OTHER SPECIFIED POSTPROCEDURAL STATES 09/21/2018 FRANK DEUTSCH APRN Ot E78.00 PURE HYPERCHOLESTEROLEMIA, UNSPECIFIED 09/21/2018 FRANK DEUTSCH APRN Ot F32.9 MAJOR DEPRESSIVE DISORDER, SINGLE EPISOD 09/21/2018 FRANK DEUTSCH APRN Ot F41.9 ANXIETY DISORDER, UNSPECIFIED 09/21/2018 FRANK DEUTSCH APRN Ot K21.9 GASTRO-ESOPHAGEAL REFLUX DISEASE WITHOUT 09/21/2018 FRANK DEUTSCH APRN Ot R53.1 WEAKNESS 09/21/2018 FRANK DEUTSCH APRN Ot R55 SYNCOPE AND COLLAPSE 09/21/2018 FRANK DEUTSCH APRN Ot Z85.828 PERSONAL HISTORY OF OTHER MALIGNANT NEOP 09/21/2018 FRANK DEUTSCH APRN Ot Z88.0 ALLERGY STATUS TO PENICILLIN 09/21/2018 FRANK DEUTSCH APRN Ot Z88.5 ALLERGY STATUS TO NARCOTIC AGENT STATUS 09/21/2018 FRANK DEUTSCH APRN Ot Z90.710 ACQUIRED ABSENCE OF BOTH CERVIX AND UTER 09/21/2018 FRANK DEUTSCH APRN Ot Z98.890 OTHER SPECIFIED POSTPROCEDURAL STATES 09/29/2018 SATINDER AYERS Ot M54.16 RADICULOPATHY, LUMBAR REGION Procedures There [...] plasma albumin measurement (mass/volume) 4.4 g/dL 3.2-4.5 Complete blood count (CBC) with automated white blood cell (WBC) differential - 09/19/18 15:00 Blood leukocytes automated count (number/volume) 9.5 10*3/uL 4.3-11.0 Blood erythrocytes automated count (number/volume) 4.91 10*6/uL 4.35-5.85 Venous blood hemoglobin measurement (mass/volume) 15.3 g/dL 11.5-16.0 Blood hematocrit (volume fraction) 44 % 35-52 Automated erythrocyte mean corpuscular volume 90 [foz_us] 80-99 Automated erythrocyte mean corpuscular hemoglobin (mass per erythrocyte) 31 pg 25-34 Automated erythrocyte mean corpuscular hemoglobin concentration measurement ( mass/volume) 35 g/dL 32-36 Automated erythrocyte distribution width ratio 13.6 % 10.0-14.5 Automated blood platelet count (count/volume) 241 10*3/uL 130-400 Automated blood platelet mean volume measurement 9.2 [foz_us] 7.4-10.4 Automated blood neutrophils/100 leukocytes 50 % 42-75 Automated blood lymphocytes/100 leukocytes 36 % 12-44 Blood monocytes/100 leukocytes 12 % 0-12 Automated blood eosinophils/100 leukocytes 2 % 0-10 Automated blood basophils/100 leukocytes 0 % 0-10 Blood neutrophils automated count (number/volume) 4.8 10*3 1.8-7.8 Blood lymphocytes automated count (number/volume) 3.4 10*3 1.0-4.0 Blood monocytes automated count (number/volume) 1.2 10*3 0.0-1.0 Automated eosinophil count 0.2 10*3/uL 0.0-0.3 Automated blood basophil count (count/volume) 0.0 10*3/uL 0.0-0.1 Comprehensive metabolic panel - 09/19/18 15:00 Serum or plasma sodium measurement (moles/volume) 139 mmol/L 135-145 Serum or plasma potassium measurement (moles/volume) 4.3 mmol/L 3.6-5.0 Serum or plasma chloride measurement (moles/volume) 106 mmol/L 98-107 Carbon dioxide 22 mmol/L 21-32 Serum or plasma anion gap determination (moles/volume) 11 mmol/L 5-14 Serum or plasma urea nitrogen measurement (mass/volume) 13 mg/dL 7-18 Serum or plasma creatinine measurement (mass/volume) 0.87 mg/dL 0.60-1.30 Serum or plasma urea nitrogen/creatinine mass ratio 15 NRG Serum or plasma creatinine measurement with calculation of estimated glomerular filtration rate > NRG Serum or plasma glucose measurement (mass/volume) 98 mg/dL 70-105 Serum or plasma calcium measurement (mass/volume) 9.4 mg/dL 8.5-10.1 Serum or plasma total bilirubin measurement (mass/volume) 0.5 mg/dL 0.1-1.0 Serum or plasma alkaline phosphatase measurement (enzymatic activity/volume) 121 U/L 40-136 Serum or plasma aspartate aminotransferase measurement (enzymatic activity/ volume) 34 U/L 5-34 Serum or plasma alanine aminotransferase measurement (enzymatic activity/volume ) 35 U/L 0-55 Serum or plasma protein measurement (mass/volume) 7.9 g/dL 6.4-8.2 Serum or plasma albumin measurement (mass/volume) 4.1 g/dL 3.2-4.5 CALCIUM CORRECTED 9.3 mg/dL 8.5-10.1 Serum or plasma troponin i.cardiac measurement (mass/volume) - 09/19/18 15:00 Serum or plasma troponin i.cardiac measurement (mass/volume) < ng/ mL <0.30 Lipase - 09/19/18 15:00 Lipase 17 U/L 8-78 Serum or plasma troponin i.cardiac measurement (mass/volume) - 09/19/18 16:10 Serum or plasma troponin i.cardiac measurement (mass/volume) < ng/ mL <0.30 Complete urinalysis with reflex to culture - 09/19/18 18:29 Urine color determination YELLOW NRG Urine clarity determination CLEAR NRG Urine pH measurement by test strip 7 5-9 Specific gravity of urine by test strip 1.010 1.016- 1.022 Urine protein assay by test strip, semi-quantitative NEGATIVE NEGATIVE Urine glucose detection by automated test strip NEGATIVE NEGATIVE Erythrocytes detection in urine sediment by light microscopy NEGATIVE NEGATIVE Urine ketones detection by automated test strip NEGATIVE NEGATIVE Urine nitrite detection by test strip NEGATIVE NEGATIVE Urine total bilirubin detection by test strip NEGATIVE NEGATIVE Urine urobilinogen measurement by automated test strip (mass/volume) NORMAL NORMAL Urine leukocyte esterase detection by dipstick 1+ NEGATIVE Automated urine sediment erythrocyte count by microscopy (number/high power field) NONE NRG Automated urine sediment leukocyte count by microscopy (number/high power field ) [HPF] NRG Bacteria detection in urine sediment by light microscopy TRACE NRG Crystals detection in urine sediment by light microscopy NONE NRG Casts detection in urine sediment by light microscopy NONE NRG Mucus detection in urine sediment by light microscopy SMALL NRG Complete urinalysis with reflex to culture NO NRG Encounters ACCT No. Visit Date/Time Discharge Status Pt. 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 Via [facility] RAD LOW BACK PAIN [id number] 07/07/2018 15:02:00 07/07/2018 23:59:59 CLS Preadmit BLADIMIR ARCE TWO 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 Via [facility] RAD DYSPHAGIA [id number] 06/16/2018 07:22:00 06/16/2018 08:55:00 DIS Outpatient MIGUEL BARBOZA MD Via [facility] CATARACT LEFT EYE [id number] 06/14/2018 05:57:00 06/14/2018 13:26:00 DIS Outpatient MIGUEL BARBOZA MD Via [facility] PREOP CATARACT LEFT EYE [id number] 05/30/2018 07:19:00 05/30/2018 08:54:00 DIS Outpatient MIGUEL BARBOZA MD Via [facility] CATARACT RIGHT EYE [id number] 05/27/2018 10:06:00 05/27/2018 23:59:59 CLS Outpatient TORRES GREENE APRN Via [facility] RAD RT HIP PAIN [id number] 05/25/2018 06:22:00 05/25/2018 14:00:00 DIS Outpatient MIGUEL BARBOZA MD Via [facility] PREOP CATARACT RIGHT EYE [id number] 05/23/2018 14:37:00 05/23/2018 23:59:59 CLS Outpatient 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 Via [facility] RAD RIGHT HIP PAIN [id number] 04/14/2018 14:05:00 04/14/2018 23:59:59 CLS Outpatient TORRES GREENE APRN Via [facility] RAD BRUIT [id number] 07/25/2017 07:30:00 07/25/2017 11:20:00 DIS Outpatient TREVOR BEACH MD Via [facility] ENDO SCREENING/CHRONIC GERD [id number] 07/21/2017 05:37:00 07/21/2017 11:08:00 DIS Outpatient TREVOR BEACH MD Via [facility] PREOP COLONOSCOPY, EGD [id number] 07/08/2017 05:20:00 07/08/2017 23:59:59 CLS Outpatient TREVOR BEACH MD Via [facility] PREOP SCREENING/CHRONIC GERD [id number] 05/13/2017 13:57:00 05/13/2017 23:59:59 CLS Outpatient BLADIMIR ARCEP [facility] RAD ABD PAIN [id number] 03/19/2016 17:02:00 03/19/2016 23:59:59 CLS Outpatient LISA RIVERA DO Via [facility] RAD RT WRIST PAIN [id number] 02/19/2016 09:38:00 02/19/2016 23:59:59 CLS Outpatient THALIA HU APRN Via [facility] RAD RT ELBOW AND FOREARM PAIN SEVERE [id number] 01/09/2016 14:34:00 01/09/2016 23:59:59 CLS Outpatient BLADIMIR ARCE Via [facility] RAD RT WRIST PAIN [id number] 11/30/2015 09:03:00 11/30/2015 13:12:00 DIS Emergency BRITT MUSTAFA, SATINDER Parra [facility] ER BODY ACHES,VOMITING, DIARRHEA [id number] 11/06/2015 12:33:00 11/06/2015 23:59:59 CLS Outpatient BLADIMIR ARCEP [facility] RAD STENOSIS [id number] 11/18/2014 11:00:00 11/18/2014 23:59:59 CLS Outpatient JUAN CHEN MD Via [facility] RAD CAROTID BRUIT [id number] 07/30/2013 10:59:00 07/30/2013 23:59:59 CLS Outpatient KARIN MUSTAFA FACC, YULIET BERRIOS CCDS Via [facility] RAD CP,DYSPNEA, WEAKNESS [id number] 07/25/2013 07:44:00 07/25/2013 23:59:59 CLS Outpatient KARIN MUSTAFA FACC, YULIET BERRIOS CCDS Via [facility] CARD CP,DYSPNEA, WEAKNESS [id number] 12/06/2014 06:47:00 Document Registration [id number] 01/05/2013 08:43:00 Document Registration [id number] 02/11/2012 10:40:00 Document Registration [id number] 10/22/2011 06:11:00 Document Registration [id number] 04/22/2011 08:29:00 Document Registration [id number] 04/06/2011 07:26:00 Document Registration [id number] 03/08/2011 06:38:00 Document Registration [id number] 02/14/2011 16:13:00 Document Registration [id number] 12/10/2010 05:38:00 Document Registration [id number] 12/03/2010 11:01:00 Document Registration [id number] 10/28/2010 12:35:00 Document Registration [id number] 10/17/2010 12:21:00 Document Registration [id number] 03/30/2010 09:50:00 Document Registration 0000 08/18/2017 09:45:23 08/18/2017 23:59:59 CLS Outpatient [id number] 11/21/2017 06:33:00 11/21/2017 07:52:00 DIS Emergency HUMBLE BARROS DO [facility] [place] [facility] ER [place] [id number] 05/10/2018 15:20:00 05/10/2018 23:59:59 CLS Outpatient CHARIS LOFTON [facility] [id number] 11/21/2017 06:32:00 11/21/2017 23:59:[address] [facility] [place] ER [place]
[2018-12-23 17:55] LABS: BASOPHILS % (AUTO) 0 % (0-10); EOSINOPHILS # (AUTO) 0.1 10^3/uL (0.0-0.3); EOSINOPHILS % (AUTO) 1 % (0-10); HEMATOCRIT 46 % (35-52); HEMOGLOBIN 16.1 G/DL (11.5-16.0); LYMPHOCYTES # (AUTO) 3.7 X 10^3 (1.0-4.0); LYMPHOCYTES % (AUTO) 31 % (12-44); MEAN CORPUSCULAR HEMOGLOBIN 31 PG (25-34); MEAN CORPUSCULAR HGB CONC 35 G/DL (32-36); MEAN CORPUSCULAR VOLUME 89 FL (80-99); MEAN PLATELET VOLUME 9.4 FL (7.4-10.4); MONOCYTES # (AUTO) 0.9 X 10^3 (0.0-1.0); MONOCYTES % (AUTO) 7 % (0-12); NEUTROPHILS # (AUTO) 7.1 X 10^3 (1.8-7.8); NEUTROPHILS % (AUTO) 60 % (42-75); PLATELET COUNT 256 10^3/uL (130-400); WHITE BLOOD COUNT 11.8 10^3/uL (4.3-11.0)
--- NOTE | 2018-12-23 17:55 | NUR ---
PT CALLING OUT FOR HELP, PROVIDER AND RN IN ROOM IMMEDIATELY. STATES SHE CAN NOT TAKE THE PAIN IN HER ABD. PROVIDER TALKED TO PT. DECIDED TO GIVE PAIN MEDICATION. PT IS STATING PAIN IS UNBEARABLE, PT IN TEARS. WASHRAG TO HEAD TO CLEAN UP SWEAT. MOUTH SWAB PROVIDED TO MOISTEN MOUTH
[2018-12-23] MEDS ORDERED: fentaNYL INJECTION 100 MCG/2 ML AMP ONE (17:57)
[2018-12-23 18:17] LABS: ALANINE AMINOTRANSFERASE 27 U/L (0-55); ALBUMIN 4.4 GM/DL (3.2-4.5); ALKALINE PHOSPHATASE 104 U/L (40-136); BILIRUBIN,TOTAL 0.5 MG/DL (0.1-1.0); BUN/CREATININE RATIO 11; CALCIUM 10.4 MG/DL (8.5-10.1); CARBON DIOXIDE 18 MMOL/L (21-32); CHLORIDE 107 MMOL/L (98-107); CREATININE SERUM 0.89 MG/DL (0.60-1.30); GFR ESTIMATED > 60; GLUCOSE 115 MG/DL (70-105); LIPASE 16 U/L (8-78); POTASSIUM 3.7 MMOL/L (3.6-5.0); SODIUM 139 MMOL/L (135-145); TOTAL PROTEIN 7.6 GM/DL (6.4-8.2)
--- NOTE | 2018-12-23 18:24 | Diagnostic Imaging Report ---
INDICATION: Back pain. Weakness. COMPARISON: 09/19/2018. FINDINGS: Portable chest shows the lungs to be well aerated and clear. Heart is at the upper limits of normal. No pneumothorax or pleural effusions. No bony abnormalities. IMPRESSION: Normal portable chest unchanged. Dictated by: Dictated on workstation # [id number]
--- NOTE | 2018-12-23 18:40 | NUR ---
DAUGHTER AT BEDSIDE, UPDATED HER ABOUT PT CONDITION. DAUGHTER STATES PATIENT HAS DONE THIS IN THE PAST AND HAS A TENDENCY TO BECOME ANXIOUS AND DIAPHORETIC.
--- NOTE | 2018-12-23 18:49 | Diagnostic Imaging Report ---
PROCEDURE: CT abdomen and pelvis with contrast. TECHNIQUE: Multiple contiguous axial images were obtained through the abdomen and pelvis after administration of intravenous contrast. Auto Exposure Controls were utilized during the CT exam to meet ALARA standards for radiation dose reduction. INDICATION: Stomach pain and cramping. COMPARISON: 05/13/2017. FINDINGS: The lung bases are clear. There is hepatic steatosis with hepatomegaly. Gallbladder is absent. Bile ducts are not dilated. Pancreas is atrophic. Spleen appears normal. The adrenal glands are normal. Kidneys show a large cyst off the right kidney measuring approximately 8.5 cm which is unchanged. There are no solid masses. There is normal enhancement of the abdominal organs and vessels following IV contrast. Aorta is atherosclerotic without aneurysm. There are mildly dilated fluid-filled loops of small bowel in the mid and left lower abdomen. The proximal duodenum is not dilated. The terminal ileum is not dilated. The dilated loops of bowel measure approximately 2.8 cm. There is no evidence of bowel wall thickening. Terminal ileum is normal. The appendix is not dilated. There is considerable spasm of the colon from the mid ascending colon throughout the transverse colon and descending colon to the rectum. There are diverticuli present without diverticulitis. There is no evidence of free air or free fluid. No mesenteric edema is noted. No intra-abdominal adenopathy of pathologic size. No bony lesions have developed. IMPRESSION: 1. Dilated loops of small bowel in the mid and left lower abdomen suggesting a partial small bowel obstruction. 2. Long segment spasm of the colon from the descending colon to the rectum which can be seen with colitis, especially ischemic colitis. There are diverticuli without evidence of acute diverticulitis. 3. No evidence of pneumatosis. No free air or free fluid. 4. Comparison with 05/13/2017 shows similar spasm of the colon on today's exam when compared with previous study. The diffuse thickened small bowel loops in the right lower quadrant on previous exam are not present today; however, the partial small bowel obstruction has occurred in the interim. Dictated by: Dictated on workstation # [id number]
--- NOTE | 2018-12-23 19:14 | NUR ---
PT C/O INCREASING PAIN AT THIS TIME. PBATES TO BEDSIDE.
[2018-12-23] MEDS ORDERED: fentaNYL INJECTION 100 MCG/2 ML AMP IVP ONE (19:15)
[2018-12-23] MEDS ORDERED: HURRICAINE EXT TUBE (BENZOCAINE) XX ONE (19:30)
[2018-12-23 19:56] LABS: BILIRUBIN,URINE NEGATIVE (NEGATIVE); CLARITY,URINE SLIGHTLY CLOUDY; COLOR,URINE YELLOW; GLUCOSE, URINE (UA) NEGATIVE (NEGATIVE); KETONES,URINE 1+ (NEGATIVE); LEUKOCYTE ESTERASE ,URINE 1+ (NEGATIVE); NITRITE,URINE NEGATIVE (NEGATIVE); PH,URINE 7 (5-9); PROTEIN,URINE NEGATIVE (NEGATIVE); UROBILINOGEN,URINE NORMAL (NORMAL)
[2018-12-23] MEDS ORDERED: LIDOCAINE PF 2% 5 ML (XYLOCAINE) VIAL ONE (20:03)
[2018-12-23 20:07] LABS: BACTERIA,URINE NEGATIVE /HPF
[2018-12-23] MEDS ORDERED: LIDOCAINE PF 2% 10 ML (XYLOCAINE) AMP INJ ONE (20:15)
--- NOTE | 2018-12-23 20:18 | NUR ---
750ML BROWN GASTRIC CONTENTS IN SUCTION CANISTER AT THIS TIME
--- NOTE | 2018-12-23 20:29 | NUR ---
THIS RN TO ROOM TO TRANSPORT PT TO ICU. PT STATING SHE WOULD LIKE NG TUBE REMOVED AT THIS TIME STATING "I JUST CAN'T DO IT". BENEFITS OF NG TUBE STAYING IN DISCUSSED W/ PATIENT, PT INSISTING TO HAVE NG TUBE REMOVED. PBATES TO BEDSIDE TO DISCUSS REMOVAL OF NG TUBE W/ PT. PT OFFERED ATIVAN FOR COMFORT, PT REFUSED. PT CONTINUES TO INSIST ON NG TUBE REMOVAL. NG TUBE REMOVED AT THIS TIME. MARQUITA, SUPERVISOR SOAKERS UPDATED ON NG TUBE REMOVAL
[2018-12-23] MEDS ORDERED: LACTATED RINGERS 1,000 ML IV ONE (20:49)
[2018-12-23] MEDS ORDERED: ONDANSETRON 4 MG/2 ML (SDV) Z0FRAN ONE (20:51)
[2018-12-23 21:00] VITALS: BP 164/66
[2018-12-23] MEDS: LACTATED RINGERS 1,000 ML IV SCH (21:18)
[2018-12-23] MEDS: fentaNYL INJECTION 100 MCG/2 ML AMP IV PRN ×2 (21:19→22:54)
[2018-12-23] MEDS: ONDANSETRON 4 MG/2 ML (SDV) Z0FRAN IV PRN (21:19)
--- NOTE | 2018-12-23 22:30 | NUR ---
This RN notified Dr. Perales that patient continues to have emesis and zofran given in last hour. Orders recieved to give 10mg reglan q 8 prn.
[2018-12-23] MEDS: METOCLOPRAMIDE INJ 10 MG/2 ML (REGLAN) IVP PRN (22:45)
[2018-12-24] VITALS: BP 139/67
[2018-12-24] MEDS: ONDANSETRON 4 MG/2 ML (SDV) Z0FRAN IV PRN ×2 (02:40→14:15)
[2018-12-24] MEDS: fentaNYL INJECTION 100 MCG/2 ML AMP IV PRN ×4 (02:40→20:26)
[2018-12-24 03:46] LABS: BASOPHILS % (AUTO) 0 % (0-10); EOSINOPHILS % (AUTO) 0 % (0-10); HEMATOCRIT 45 % (35-52); HEMOGLOBIN 15.5 G/DL (11.5-16.0); LYMPHOCYTES # (AUTO) 1.7 X 10^3 (1.0-4.0); LYMPHOCYTES % (AUTO) 17 % (12-44); MEAN CORPUSCULAR HEMOGLOBIN 31 PG (25-34); MEAN CORPUSCULAR HGB CONC 34 G/DL (32-36); MEAN CORPUSCULAR VOLUME 91 FL (80-99); MEAN PLATELET VOLUME 9.6 FL (7.4-10.4); MONOCYTES # (AUTO) 0.4 X 10^3 (0.0-1.0); MONOCYTES % (AUTO) 4 % (0-12); NEUTROPHILS # (AUTO) 8.3 X 10^3 (1.8-7.8); NEUTROPHILS % (AUTO) 80 % (42-75); PLATELET COUNT 259 10^3/uL (130-400); RED CELL DISTRIBUTION WIDTH 13.1 % (10.0-14.5); WHITE BLOOD COUNT 10.4 10^3/uL (4.3-11.0)
[2018-12-24] MEDS: METOCLOPRAMIDE INJ 10 MG/2 ML (REGLAN) IVP PRN ×2 (03:55→19:51)
[2018-12-24 04:00] VITALS: BP 156/94
[2018-12-24 04:15] LABS: ALANINE AMINOTRANSFERASE 29 U/L (0-55); ALBUMIN 4.3 GM/DL (3.2-4.5); ALKALINE PHOSPHATASE 96 U/L (40-136); BILIRUBIN,TOTAL 0.4 MG/DL (0.1-1.0); BUN/CREATININE RATIO 13; CARBON DIOXIDE 24 MMOL/L (21-32); CHLORIDE 106 MMOL/L (98-107); CREATININE SERUM 0.83 MG/DL (0.60-1.30); GFR ESTIMATED > 60; GLUCOSE 142 MG/DL (70-105); SODIUM 140 MMOL/L (135-145); TOTAL PROTEIN 7.3 GM/DL (6.4-8.2)
[2018-12-24] MEDS: LACTATED RINGERS 1,000 ML IV SCH (04:45)
[2018-12-24] MEDS ORDERED: FLU QUADRIvalent (5+ YOA) 2018-2019 (AFLURIA) 0.5 ML IM ONE ×2 (07:15→11:11)
[2018-12-24 08:00] VITALS: BP 126/54
[2018-12-24] MEDS: PANTOPRAZOLE 40 MG (PROTONIX) VIAL IV SCH ×2 (09:16→20:25)
--- NOTE | 2018-12-24 11:03 | History & Physicial ---
History of Present Illness History of Present Illness Reason for visit/HPI acute onset of diffuse abdominal pain of 2 hours duration. Evaluation in the ER shows features of early partial small bowel obstruction with no definitive transition point Date of Admission Dec 23, 2018 at 19:36 Date Seen by a Provider: Dec 24, 2018 Time Seen by a Provider: 10:10 I consulted on this patient on 12/24/18 11:00 Attending Physician Abril Sheridan MD Admitting Physician Abril Sheridan MD Consult Allergies and Home Medications Allergies Coded Allergies: Penicillins (Verified Allergy, Mild, RASH, ITCHING, 05/25/18) codeine (Unverified Allergy, Unknown, RASH, ITCHING, 05/25/18) Home Medications Cyanocobalamin (Vitamin B-12) 1,000 Mcg Tablet.er, 1,000 MCG PO DAILY, (Reported ) Duloxetine HCl 60 Mg Capsule.dr, 60 MG PO DAILY, (Reported) Esomeprazole Magnesium 40 Mg Cap, 40 MG PO DAILY, (Reported) Multivitamin 1 Each Tablet, 1 EACH PO DAILY, (Reported) Patient Home Medication List Home Medication List Reviewed: Yes Past Fcxcpnp-Uemozm-Oibffg Hx Patient Social History Marrital Status: single, Employed/Student: unemployed, retired Recent Foreign Travel: No Contact w/other who traveled: No Recent Hopitalizations: No Recent Infectious Disease Expo: No Immunizations Up To Date Date of Pneumonia Vaccine: Dec 23, 2016 Date of Influenza Vaccine: Jul 03, 2016 Seasonal Allergies Seasonal Allergies: No Surgeries Yes Section, Hysterectomy, Joint Replacement, Orthopedic Respiratory No Cardiovascular Yes High Cholesterol Neurological No Reproductive System Hx Reproductive Disorders: No Sexually Transmitted Disease: No 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 Gastrointestinal Yes Gastroesophageal Reflux Musculoskeletal Yes Arthritis, Chronic Back Pain Endocrine History of Endocrine Disorders: No Cancer Yes Skin Psychosocial History of Psychiatric Problem: Yes Behavioral Health Disorders: Anxiety, Depression Integumentary History of Skin or Integumenta: Yes Skin/Integumentary Disorders: Psoriasis Blood Transfusions History of Blood Disorders: No Adverse Reaction to a Blood Tr: No Review of Systems Constitutional: no symptoms reported EENTM: no symptoms reported Respiratory: no symptoms reported Cardiovascular: no symptoms reported Gastrointestinal: see HPI Genitourinary: no symptoms reported Musculoskeletal: no symptoms reported Skin: no symptoms reported Psychiatric/Neurological: No Symptoms Reported Physical Exam Vital Signs Vital Signs - First Documented 12/23/18 12/23/18 17:20 21:00 Temp 96.0 Pulse 86 Resp 28 B/P (MAP) 150/88 (108) Pulse Ox 99 O2 Delivery Room Air O2 Flow Rate 2.00 Capillary Refill : Less Than 3 Seconds Height, Weight, BMI Height: 5'3.00" Weight: 185lbs. 0.0oz. 83.904440dp; 32.2 BMI Method:Stated General Appearance: No Apparent Distress Neck: Normal Inspection Gastrointestinal: Non Tender, Soft, Other Rectal: Deferred Extremity: Normal Inspection Neurologic/Psychiatric: Alert, Oriented x3 Skin: Warm/Dry Comments long midline scar resulting from trauma laparotomy when she was stepped on by a horse. No incisional hernia. No tenderness Assessment/Plan Assessment and Plan lady with radiologic features of partial small bowel obstruction, currently symptoms and clinical features resolved. Reasonable to initiate liquid diet and observe her. Admission Diagnosis Admission Status: Observation Clinical Quality Measures DVT/VTE Risk/Contraindication: Risk Factor Score Per Nursin RFS Level Per Nursing on Admit: 2=Moderate TREVOR BEACH MD Dec 24, 2018 11:03
[2018-12-24] MEDS ORDERED: DULO60CA6 PO (11:07)
--- NOTE | 2018-12-24 11:31 | Consultation-Hospitalist ---
HPI History of Present Illness: HPI/Chief Complaint CC: SBO HPI: This is a 78-year-old white female who is normally very healthy has a history of depression and GERD who presented to the ER with nausea for 4 hours and started having abdominal pain and presented to the ER and found to have partial small bowel obstruction. She has never had this sort of thing before. Dr. Perales saw her in consultation placed her on clear liquids and observation and transfer to [facility] with ambulation. Patient denies any nausea or abdominal pain currently. Her daughter is at the bedside. Source: patient Exam Limitations: no limitations Date Seen 12/24/18 Attending Physician Abril Sheridan MD PCP Abril Sheridan MD Referring Physician Date of Admission Dec 23, 2018 at 19:36 Home Medications & Allergies Home Medications Reviewed patient Home Medication Reconciliation performed by pharmacy medication reconciliations process controls technician and/or nursing. Patients Allergies have been reviewed. Allergies Allergies Coded Allergies Penicillins (Verified Allergy, Mild, RASH, ITCHING, 05/25/18) codeine (Unverified Allergy, Unknown, RASH, ITCHING, 05/25/18) Past Bnamwyp-Tpuact-Ogrdpb Hx Past Med/Social Hx: Reviewed Nursing Past Med/Soc Hx, Reviewed and Corrections made Patient Social History Marrital Status: single, Employed/Student: unemployed, retired ([employer]) Alcohol Use: Denies Use Smoking Status: Never a Smoker Recent Foreign Travel: No Contact w/other who traveled: No Recent Hopitalizations: No Recent Infectious Disease Expo: No Immunizations Up To Date Date of Pneumonia Vaccine: Dec 23, 2016 Date of Influenza Vaccine: Jul 03, 2016 Seasonal Allergies Seasonal Allergies: No Past Medical History Surgeries: Section, Hysterectomy, Joint Replacement, Orthopedic Cardiac: High Cholesterol Reproductive: No Sexually Transmitted Disease: No Hysterectomy Gastrointestinal: Gastroesophageal Reflux Musculoskeletal: Arthritis, Chronic Back Pain Cancer: Skin Psychosocial: Anxiety, Depression Skin/Integumentary: Psoriasis History of Blood Disorders: No Adverse Reaction to Blood Lopez: No Review of Systems Constitutional: see HPI EENTM: no symptoms reported Respiratory: no symptoms reported Cardiovascular: no symptoms reported Gastrointestinal: abdominal pain, loss of appetite, nausea, vomiting Genitourinary: no symptoms reported Musculoskeletal: no symptoms reported Skin: no symptoms reported Psychiatric/Neurological: No Symptoms Reported All Other Systems Reviewed Negative Unless Noted: Yes Physical Exam Physical Exam Vital Signs Vital Signs - First Documented 12/23/18 12/23/18 17:20 21:00 Temp 96.0 Pulse 86 Resp 28 B/P (MAP) 150/88 (108) Pulse Ox 99 O2 Delivery Room Air O2 Flow Rate 2.00 Capillary Refill : Less Than 3 Seconds Height, Weight, BMI Height: 5'3.00" Weight: 185lbs. 0.0oz. 83.028693zg; 32.2 BMI Method:Stated General Appearance: No Apparent Distress, WD/WN Neck: Normal Inspection Respiratory: Chest Non Tender, Lungs Clear, Normal Breath Sounds, No Accessory Muscle Use, No Respiratory Distress Cardiovascular: Regular Rate, Rhythm, No Edema, No Gallop, No JVD, No Murmur, Normal Peripheral Pulses Gastrointestinal: Non Tender, Soft, Other (hypoactive BS) Rectal: Deferred Extremity: Normal Inspection Neurologic/Psychiatric: Alert, Oriented x3 Skin: Warm/Dry Results Results/Procedures Labs Laboratory Tests 12/23/18 17:45 12/24/18 02:55 Patient resulted labs reviewed. Assessment/Plan Assessment and Plan Assess & Plan/Chief Complaint Assessment: Partial small bowel obstruction GERD Depression Plan: Clear liquid diet Ambulate Transfer to fourth floor Diagnosis/Problems Diagnosis/Problems (1) Small bowel obstruction Status: Acute (2) GERD (gastroesophageal reflux disease) Status: Chronic Qualifiers: Esophagitis presence: without esophagitis Qualified Codes: K21.9 - Gastro- esophageal reflux disease without esophagitis (3) Depression Status: Chronic Qualifiers: Depression Type: unspecified Qualified Codes: F32.9 - Major depressive disorder, single episode, unspecified (4) Hyperlipemia Status: Chronic Qualifiers: Hyperlipidemia type: mixed hyperlipidemia Qualified Codes: E78.2 - Mixed hyperlipidemia Clinical Quality Measures DVT/VTE Risk/Contraindication: Risk Factor Score Per Nursin RFS Level Per Nursing on Admit: 2=Moderate MORE SHREIFF DO Dec 24, 2018 11:31
[2018-12-24 15:47] VITALS: BP 139/57
[2018-12-24 20:00] VITALS: BP 147/65
[2018-12-25 00:20] VITALS: BP 156/77
[2018-12-25 04:45] VITALS: BP 130/65
[2018-12-25] MEDS: PANTOPRAZOLE 40 MG (PROTONIX) VIAL IV SCH (08:27)
[2018-12-25] MEDS ORDERED: DULoxetine 30 MG (CYMBALTA) CAP PO SCH (09:00)
[2018-12-25] MEDS ORDERED: NON-FORMULARY MEDICATION 1 EA EA (Esomeprazole Magnesium (Nexium) 40 MG) PO SCH (09:00)
--- NOTE | 2018-12-25 09:29 | Discharge Summary ---
Diagnosis/Chief Complaint Date of Admission Dec 23, 2018 at 19:36 Date of Discharge Discharge Summary Discharge Physical Examination Allergies: Coded Allergies: Penicillins (Verified Allergy, Mild, RASH, ITCHING, 05/25/18) codeine (Unverified Allergy, Unknown, RASH, ITCHING, 05/25/18) Vitals & I&Os Vital Signs Date Time Temp Pulse Resp B/P (MAP) Pulse Ox O2 Delivery O2 Flow Rate FiO2 12/25/18 04:45 97.9 63 16 130/65 (86) 93 Room Air 12/25/18 00:20 2.00 Discharge Instructions to patient/family Please see electronic discharge instructions given to patient. Discharge Medications Reviewed and agree with Discharge Medication list on patient's Discharge Instruction sheet Clinical Quality Measures DVT/VTE Risk/Contraindication: Risk Factor Score Per Nursin RFS Level Per Nursing on Admit: 2=Moderate JUAN CHEN MD Dec 25, 2018 09:29
--- NOTE | 2018-12-25 09:33 | Discharge Inst-Complex ---
PDI Med Rec & Follow Up Appt. Continued Medications: Cyanocobalamin (Vitamin B-12) (Vitamin B-12) 1,000 Mcg Tablet.er 1000 MCG PO DAILY, TAB Duloxetine HCl (Cymbalta) 60 Mg Capsule.dr 30 MG PO DAILY for 30 Days, #1 CAP Esomeprazole Magnesium (Nexium) 40 Mg Cap 40 MG PO DAILY, CAP Multivitamin (Daily Multiple Vitamin) 1 Each Tablet 1 EACH PO DAILY, TAB Activity, Diet and PDI Resume Normal Activity: Yes Discharge Diet: Soft Diet Diet for 24 Hours: No Alcohol, No [place] Foods, No Spicy Foods Diet After 24 Hours: Clear Liquid if Nauseous Drink 6-8 Glasses of Fluid/Day: Yes Driving Instructions: You May Drive Return to The Hospital For: return to hospital for any lifethreatening illness or injury Symptoms to Reoprt to .: Appetite Changes, Fever Over 101 Degrees F, Pain/ Pressure in Chest, Cough Up/Vomit Blood, Nausea/Vomiting For Problems or Questions: Contact Your Physician, Go to Emergency Room JUAN CHEN MD Dec 25, 2018 09:32
--- OUTSIDE RECORDS SUMMARY | 2018-12-29 15:48 | XMS REPORT | Continuity of Care Document ---
Author Author [facility] Organization [facility] Address Unknown Phone Unavailable Allergies Active Description Code Type Severity Reaction Onset Reported/Identified Relationship to Patient Clinical Status Yes codeine [id number] Drug Allergy Unknown Hives 11/21/2017 Yes Penicillins [id number] Drug Allergy Unknown Hives 11/21/2017 Yes codeine [id number] Drug Allergy Unknown RASH, ITCHING 05/25/2018 Yes Penicillins [id number] Drug Allergy Mild RASH, ITCHING 05/25/2018 Medications [...] 733.90 11/06/2015 Ot V82.81 11/06/2015 KARIN MUSTAFA [facility], ALI FACP CCDS Ot 530.81 11/06/2015 KARIN MUSTAFA [facility], ALI FACP CCDS Ot 627.2 11/06/2015 KARIN MUSTAFA [facility], ALI FACP CCDS Ot 780.79 11/06/2015 KARIN MUSTAFA [facility], ALI FACP CCDS Ot 786.09 11/06/2015 KARIN MUSTAFA [facility], ALI FACP CCDS Ot 786.50 11/06/2015 KARIN MUSTAFA [facility], ALI FACP CCDS Ot 530.81 11/06/2015 KARIN MUSTAFA [facility], ALI FACP CCDS Ot 627.2 11/06/2015 KARIN MUSTAFA [facility], ALI FACP CCDS Ot 780.79 11/06/2015 KARIN MUSTAFA [facility], ALI FACP CCDS Ot 786.09 11/06/2015 KARIN MUSTAFA [facility], ALI FACP CCDS Ot 786.50 11/06/2015 GUSTAVO [...] Ot Z98.1 ARTHRODESIS STATUS 12/12/2015 BLADIMIR ARCE BRICK DROPPER Ot I65.23 01/12/2016 BLADIMIR ARCE BRICK DROPPER Ot M19.031 01/15/2016 BLADIMIR ARCE BRICK DROPPER Ot M19.031 01/16/2016 BRITT MUSTAFA, SATINDER T [...] Ot Z98.1 ARTHRODESIS STATUS 01/29/2016 BLADIMIR ARCE BRICK DROPPER Ot M19.031 PRIMARY OSTEOARTHRITIS, RIGHT WRIST 01/30/2016 [...] Ot Z98.1 ARTHRODESIS STATUS 02/19/2016 BLADIMIR ARCE BRICK DROPPER Ot M19.031 PRIMARY OSTEOARTHRITIS, RIGHT WRIST 02/20/2016 THALIA HU COMBUSTION ANALYST Ot M25.521 PAIN IN RIGHT ELBOW 02/20/2016 [...] CARDIOVAS SYS SYMP NEC 05/13/2017 BLADIMIR ARCE BRICK DROPPER Ot I65.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 AND STENOSIS OF BILATERAL BUCK 05/13/2017 BLADIMIR ARCE BRICK DROPPER Ot M19.031 PRIMARY OSTEOARTHRITIS, RIGHT WRIST 05/13/2017 THALIA HU COMBUSTION ANALYST Ot M25.521 PAIN IN RIGHT ELBOW 05/13/2017 THALIA HU COMBUSTION ANALYST Ot M79.631 PAIN IN RIGHT FOREARM 05/13/2017 MIGUEL DOLISA W Ot M24.831 OTH SPECIFIC JOINT DERANGEMENTS OF RIGHT 05/13/2017 MIGUEL DO LISA W Ot M25.531 PAIN IN RIGHT WRIST 05/13/2017 MIGUEL DOLISA W Ot M65.841 OTHER SYNOVITIS AND TENOSYNOVITIS, RIGHT 05/16/2017 BLADIMIR ARCE BRICK DROPPER Ot K44.9 DIAPHRAGMATIC HERNIA WITHOUT OBSTRUCTION 05/16/2017 BLADIMIR ARCE BRICK DROPPER Ot K52.9 NONINFECTIVE GASTROENTERITIS AND COLITIS 05/16/2017 BLADIMIR ARCE BRICK DROPPER Ot K76.0 FATTY (CHANGE OF) LIVER, NOT ELSEWHERE C 05/16/2017 BLADIMIR ARCE BRICK DROPPER Ot N28.1 CYST OF KIDNEY, ACQUIRED 05/16/2017 BLADIMIR ARCE BRICK DROPPER Ot Z90.49 ACQUIRED ABSENCE OF OTHER SPECIFIED PART 05/16/2017 BLADIMIR ARCE BRICK DROPPER Ot Z96.641 PRESENCE OF RIGHT ARTIFICIAL HIP JOINT 06/07/2017 BLADIMIR ARCE BRICK DROPPER Ot K44.9 DIAPHRAGMATIC HERNIA WITHOUT OBSTRUCTION 06/07/2017 BLADIMIR ARCE BRICK DROPPER Ot K52.9 NONINFECTIVE GASTROENTERITIS AND COLITIS 06/07/2017 BLADIMIR ARCE BRICK DROPPER Ot K76.0 FATTY (CHANGE OF) LIVER, NOT ELSEWHERE C 06/07/2017 BLADIMIR ARCE BRICK DROPPER Ot N28.1 CYST OF KIDNEY, ACQUIRED 06/07/2017 BLADIMIR ARCE BRICK DROPPER Ot Z90.49 ACQUIRED ABSENCE OF OTHER SPECIFIED PART 06/07/2017 BLADIMIR ARCE BRICK DROPPER Ot Z96.641 PRESENCE OF RIGHT ARTIFICIAL HIP JOINT 07/08/2017 BLADIMIR ARCE BRICK DROPPER Ot K44.9 DIAPHRAGMATIC HERNIA WITHOUT OBSTRUCTION 07/08/2017 BLADIMIR ARCE BRICK DROPPER Ot K52.9 NONINFECTIVE GASTROENTERITIS AND COLITIS 07/08/2017 BLADIMIR ARCE BRICK DROPPER Ot K76.0 FATTY (CHANGE OF) LIVER, NOT ELSEWHERE C 07/08/2017 BLADIMIR ARCE BRICK DROPPER Ot N28.1 CYST OF KIDNEY, ACQUIRED 07/08/2017 BLADIMIR ARCE BRICK DROPPER Ot Z90.49 ACQUIRED ABSENCE OF OTHER SPECIFIED PART 07/08/2017 BLADIMIR ARCE BRICK DROPPER Ot Z96.641 PRESENCE OF RIGHT ARTIFICIAL HIP [...] DIAPHRAGMATIC HERNIA WITHOUT OBSTRUCTION 07/25/2017 BAYLEE MUSTAFA, TREVOR Cuellar Ot K63.5 POLYP OF COLON 07/25/2017 [...] SYS SYMP NEC 04/13/2018 ARCE, BLADIMIR M BRICK DROPPER Ot I65.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 AND STENOSIS OF BILATERAL BUCK 04/13/2018 BLADIMIR ARCE BRICK DROPPER Ot M19.031 PRIMARY OSTEOARTHRITIS, RIGHT WRIST 04/13/2018 THALIA HU COMBUSTION ANALYST Ot M25.521 PAIN IN RIGHT ELBOW 04/13/2018 THALIA HU COMBUSTION ANALYST Ot M79.631 PAIN IN RIGHT FOREARM 04/13/2018 MIGUEL DO LISA W Ot M24.831 OTH SPECIFIC JOINT DERANGEMENTS OF RIGHT 04/13/2018 MIGUEL DO, LISA W Ot M25.531 PAIN IN RIGHT WRIST 04/13/2018 MIGUEL DO LISA W Ot M65.841 OTHER SYNOVITIS AND TENOSYNOVITIS, RIGHT 04/13/2018 BLADIMIR ARCE BRICK DROPPER Ot K44.9 DIAPHRAGMATIC HERNIA WITHOUT OBSTRUCTION 04/13/2018 BLADIMIR ARCE BRICK DROPPER Ot K52.9 NONINFECTIVE GASTROENTERITIS AND COLITIS 04/13/2018 BLADIMIR ARCE BRICK DROPPER Ot K76.0 FATTY (CHANGE OF) LIVER, NOT ELSEWHERE C 04/13/2018 BLADIMIR ARCE BRICK DROPPER Ot N28.1 CYST OF KIDNEY, ACQUIRED 04/13/2018 BLADIMIR ARCE BRICK DROPPER Ot Z90.49 ACQUIRED ABSENCE OF OTHER SPECIFIED PART 04/13/2018 BLADIMIR ARCE BRICK DROPPER Ot Z96.641 PRESENCE OF RIGHT ARTIFICIAL HIP JOINT 04/13/2018 BAYLEE MUSTAFA, TREVOR Cuellar Ot K21.9 GASTRO-ESOPHAGEAL REFLUX DISEASE WITHOUT 04/13/2018 BAYLEE MUSTAFA, TREVOR Cuellar Ot Z01.818 ENCOUNTER FOR OTHER PREPROCEDURAL EXAMIN 04/13/2018 TREVOR [place] MD Ot Z12.11 ENCOUNTER FOR SCREENING FOR MALIGNANT NE 04/13/2018 TORRES GREENE COMBUSTION ANALYST Ot I65.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 AND STENOSIS OF BILATERAL BUCK 04/17/2018 TORRES GREENE APRN Ot R09.89 OTH SYMPTOMS AND SIGNS INVOLVING THE CIR 05/25/2018 MIGUEL BARBOZA MD Ot Z01.818 ENCOUNTER FOR OTHER PREPROCEDURAL EXAMIN 05/29/2018 TORRES GREENE COMBUSTION ANALYST Ot M25.551 PAIN IN RIGHT HIP 05/29/2018 TORRES GREENE COMBUSTION ANALYST Ot M79.651 PAIN IN RIGHT THIGH 05/29/2018 TORRES GREENE COMBUSTION ANALYST Ot R20.0 ANESTHESIA OF SKIN 05/29/2018 TORRES GREENE COMBUSTION ANALYST Ot R53.1 WEAKNESS 05/29/2018 TORRES GREENE COMBUSTION ANALYST Ot Z90.710 ACQUIRED ABSENCE OF BOTH CERVIX AND UTER 05/29/2018 TORRES GREENE COMBUSTION ANALYST Ot Z96.641 PRESENCE OF RIGHT ARTIFICIAL HIP JOINT 05/30/2018 MIGUEL BARBOZA MD Ot H25.811 COMBINED FORMS OF AGE-RELATED CATARACT, 05/30/2018 MIGUEL BARBOZA MD Ot K21.9 GASTRO-ESOPHAGEAL REFLUX DISEASE WITHOUT 06/01/2018 MIGUEL BARBOZA MD Ot H25.811 COMBINED FORMS OF AGE-RELATED CATARACT, 06/01/2018 MIGUEL BARBOZA MD Ot K21.9 GASTRO-ESOPHAGEAL REFLUX DISEASE WITHOUT 06/02/2018 TORRES GREENE COMBUSTION ANALYST Ot M25.551 PAIN IN RIGHT HIP 06/02/2018 TORRES GREENE COMBUSTION ANALYST Ot M79.651 PAIN IN RIGHT THIGH 06/02/2018 TORRES GREENE COMBUSTION ANALYST Ot R20.0 ANESTHESIA OF SKIN 06/02/2018 TORRES GREENE COMBUSTION ANALYST Ot R53.1 WEAKNESS 06/02/2018 TORRES GREENE COMBUSTION ANALYST Ot Z90.710 ACQUIRED ABSENCE OF BOTH CERVIX AND UTER 06/02/2018 TORRES GREENE COMBUSTION ANALYST Ot Z96.641 PRESENCE OF RIGHT ARTIFICIAL HIP [...] 06/16/2018 MIGUEL BARBOZA MD Ot Z79.899 OTHER RETIREMENT (CURRENT) DRUG THERAPY 06/20/2018 TAMRA MUSTAFA, MIGUEL L Ot F32.9 MAJOR DEPRESSIVE DISORDER, SINGLE EPISOD 06/20/2018 TAMRA MUSTAFA, MIGUEL L Ot F41.9 ANXIETY DISORDER, UNSPECIFIED 06/20/2018 TAMRA MUSTAFA, MIGUEL L Ot H25.12 AGE-RELATED NUCLEAR CATARACT, LEFT EYE 06/20/2018 TAMRA MUSTAFA, MIGUEL L Ot Z79.899 OTHER RETIREMENT (CURRENT) DRUG THERAPY 06/21/2018 TAMRA MUSTAFA, MIGUEL L Ot F32.9 MAJOR DEPRESSIVE DISORDER, SINGLE EPISOD 06/21/2018 TAMRA MUSTAFA, MIGUEL L Ot F41.9 ANXIETY DISORDER, UNSPECIFIED 06/21/2018 TAMRA MUSTAFA, MIGUEL L Ot H25.12 AGE-RELATED NUCLEAR CATARACT, LEFT EYE 06/21/2018 TAMRA MUSTAFA, MIGUEL L Ot 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 06/22/2018 MIGUEL BARBOZA MD Ot F32.9 MAJOR DEPRESSIVE DISORDER, SINGLE EPISOD 06/22/2018 TAMRA MUSTAFA, MIGUEL L Ot F41.9 ANXIETY DISORDER, UNSPECIFIED 06/22/2018 TAMRA MUSTAFA, MIGUEL L Ot H25.12 AGE-RELATED NUCLEAR CATARACT, LEFT EYE 06/22/2018 TAMRA MUSTAFA, MIGUEL L Ot Z79.899 OTHER RETIREMENT (CURRENT) DRUG THERAPY 06/22/2018 TORRES GREENE APRN Ot M25.551 PAIN IN RIGHT HIP 06/22/2018 TORRES GREENE COMBUSTION ANALYST Ot Z96.643 PRESENCE OF ARTIFICIAL HIP JOINT, BILATE 06/23/2018 TORRES GREENE COMBUSTION ANALYST Ot M25.551 PAIN IN RIGHT HIP 06/23/2018 TORRES GREENE COMBUSTION ANALYST Ot M79.651 PAIN IN RIGHT THIGH 06/23/2018 TORRES GREENE APRN Ot R20.0 ANESTHESIA OF SKIN 06/23/2018 TORRES GREENE COMBUSTION ANALYST Ot R53.1 WEAKNESS 06/23/2018 TORRES GREENE COMBUSTION ANALYST Ot Z90.710 ACQUIRED ABSENCE OF BOTH CERVIX AND UTER 06/23/2018 TORRES GREENE COMBUSTION ANALYST Ot Z96.641 PRESENCE OF RIGHT ARTIFICIAL HIP JOINT 07/07/2018 TORRES GREENE COMBUSTION ANALYST Ot M25.551 PAIN IN RIGHT HIP 07/07/2018 TORRES GREENE Alisa COMBUSTION ANALYST Ot Z96.643 PRESENCE OF ARTIFICIAL HIP JOINT, BILATE 07/07/2018 JCTORRES COMBUSTION ANALYST Ot M25.551 PAIN IN RIGHT HIP 07/07/2018 TORRES GREENE COMBUSTION ANALYST Ot M79.651 PAIN IN RIGHT THIGH 07/07/2018 TORRES GREENE Alisa COMBUSTION ANALYST Ot R20.0 ANESTHESIA OF SKIN 07/07/2018 JCTORRES Alisa COMBUSTION ANALYST Ot R53.1 WEAKNESS 07/07/2018 TORRES GREENE COMBUSTION ANALYST Ot Z90.710 ACQUIRED ABSENCE OF BOTH CERVIX AND UTER 07/07/2018 TORRES GREENE COMBUSTION ANALYST Ot Z96.641 PRESENCE OF RIGHT ARTIFICIAL HIP [...] CARDIOVAS SYS SYMP NEC 08/02/2018 BLADIMIR ARCE BRICK DROPPER Ot I65.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 AND STENOSIS OF BILATERAL BUCK 08/02/2018 BLADIMIR ARCE BRICK DROPPER Ot M19.031 PRIMARY OSTEOARTHRITIS, RIGHT WRIST 08/02/2018 THALIA HU COMBUSTION ANALYST Ot M25.521 PAIN IN RIGHT ELBOW 08/02/2018 THALIA HU COMBUSTION ANALYST Ot M79.631 PAIN IN RIGHT FOREARM 08/02/2018 MIGUEL CASTRO LISA Alexander Ot M24.831 OTH SPECIFIC JOINT DERANGEMENTS OF RIGHT 08/02/2018 MIGUEL CASTRO LISA Alexander Ot M25.531 PAIN IN RIGHT WRIST 08/02/2018 MIGUEL CASTRO LISA Alexander Ot M65.841 OTHER SYNOVITIS AND TENOSYNOVITIS, RIGHT 08/02/2018 BLADIMIR ARCE BRICK DROPPER Ot K44.9 DIAPHRAGMATIC HERNIA WITHOUT OBSTRUCTION 08/02/2018 BLADIMIR ARCE BRICK DROPPER Ot K52.9 NONINFECTIVE GASTROENTERITIS AND COLITIS 08/02/2018 BLADIMIR ARCE BRICK DROPPER Ot K76.0 FATTY (CHANGE OF) LIVER, NOT ELSEWHERE C 08/02/2018 BLADIMIR ARCE BRICK DROPPER Ot N28.1 CYST OF KIDNEY, ACQUIRED 08/02/2018 BLADIMIR ARCE BRICK DROPPER Ot Z90.49 ACQUIRED ABSENCE OF OTHER SPECIFIED PART 08/02/2018 BLADIMIR ARCE BRICK DROPPER Ot Z96.641 PRESENCE OF RIGHT ARTIFICIAL HIP [...] PAIN IN RIGHT HIP 08/02/2018 TORRES GREENE COMBUSTION ANALYST Ot Z96.643 PRESENCE OF ARTIFICIAL HIP JOINT, BILATE 08/02/2018 TORRES GREENE COMBUSTION ANALYST Ot M25.551 PAIN IN RIGHT HIP 08/02/2018 TORRES GREENE APRN Ot M79.651 PAIN IN RIGHT THIGH 08/02/2018 TORRES GREENE COMBUSTION ANALYST Ot R20.0 ANESTHESIA OF SKIN 08/02/2018 TORRES GREENE APRN Ot R53.1 WEAKNESS 08/02/2018 TORRES GREENE APRN Ot Z90.710 ACQUIRED ABSENCE OF BOTH CERVIX AND UTER 08/02/2018 TORRES GREENE COMBUSTION ANALYST Ot Z96.641 PRESENCE OF RIGHT ARTIFICIAL HIP JOINT 08/02/2018 TORRES GREENE COMBUSTION ANALYST Ot M47.817 SPONDYLS W/O MYELOPATHY OR RADICULOPATHY [...] STENOS OF INTVRT FORA 08/07/2018 TORRES GREENE COMBUSTION ANALYST Ot M47.817 SPONDYLS W/O MYELOPATHY OR RADICULOPATHY 09/06/2018 SWEET PA, SATINDER R Ot M54.16 RADICULOPATHY, LUMBAR REGION 09/19/2018 FRANK DEUTSCH COMBUSTION ANALYST Ot E78.00 PURE HYPERCHOLESTEROLEMIA, UNSPECIFIED 09/19/2018 FRANK DEUTSCH COMBUSTION ANALYST Ot F32.9 MAJOR DEPRESSIVE DISORDER, SINGLE EPISOD 09/19/2018 FRANK DEUTSCH COMBUSTION ANALYST Ot F41.9 ANXIETY DISORDER, UNSPECIFIED 09/19/2018 FRANK DEUTSCH COMBUSTION ANALYST Ot K21.9 GASTRO-ESOPHAGEAL REFLUX DISEASE WITHOUT 09/19/2018 FRANK DEUTSCH APRN Ot R53.1 WEAKNESS 09/19/2018 FRANK DEUTSCH COMBUSTION ANALYST Ot R55 SYNCOPE AND COLLAPSE 09/19/2018 FRANK DEUTSCH APRN Ot Z85.828 PERSONAL HISTORY OF OTHER MALIGNANT NEOP 09/19/2018 FRANK DEUTSCH COMBUSTION ANALYST Ot Z88.0 ALLERGY STATUS TO PENICILLIN 09/19/2018 FRANK DEUTSCH COMBUSTION ANALYST Ot Z88.5 ALLERGY STATUS TO NARCOTIC AGENT STATUS 09/19/2018 FRANK DEUTSCH COMBUSTION ANALYST Ot Z90.710 ACQUIRED ABSENCE OF BOTH CERVIX AND UTER 09/19/2018 FRANK DEUTSCH COMBUSTION ANALYST Ot Z98.890 OTHER SPECIFIED POSTPROCEDURAL STATES 09/21/2018 FRANK DEUTSCH APRN Ot E78.00 PURE HYPERCHOLESTEROLEMIA, UNSPECIFIED 09/21/2018 FRANK DEUTSCH APRN Ot F32.9 MAJOR DEPRESSIVE DISORDER, SINGLE EPISOD 09/21/2018 FRANK DEUTSCH COMBUSTION ANALYST Ot F41.9 ANXIETY DISORDER, UNSPECIFIED 09/21/2018 FRANK DEUTSCH COMBUSTION ANALYST Ot K21.9 GASTRO-ESOPHAGEAL REFLUX DISEASE WITHOUT 09/21/2018 FRANK DEUTSCH COMBUSTION ANALYST Ot R53.1 WEAKNESS 09/21/2018 FRANK DEUTSCH COMBUSTION ANALYST Ot R55 SYNCOPE AND COLLAPSE 09/21/2018 FRANK DEUTSCH APRN Ot Z85.828 PERSONAL HISTORY OF OTHER MALIGNANT NEOP 09/21/2018 FRANK DEUTSCH APRN Ot Z88.0 ALLERGY STATUS TO PENICILLIN 09/21/2018 FRANK DEUTSCH COMBUSTION ANALYST Ot Z88.5 ALLERGY STATUS TO NARCOTIC AGENT STATUS 09/21/2018 FRANK DEUTSCH APRN Ot Z90.710 ACQUIRED ABSENCE OF BOTH CERVIX AND UTER 09/21/2018 FRANK DEUTSCH APRN Ot Z98.890 OTHER SPECIFIED POSTPROCEDURAL STATES 09/29/2018 SATINDER AYERS Ot M54.16 RADICULOPATHY, LUMBAR REGION 10/17/2018 SATINDER AYERS Ot M54.16 RADICULOPATHY, LUMBAR REGION 12/25/2018 KARIN MUSTAFA FACC, ALI FACP CCDS Ot 530.81 ESOPHAGEAL REFLUX 12/25/2018 KARIN MUSTAFA FACC, ALI FACP CCDS Ot 627.2 SYMPT MENOPAUSE OR FEMALE CLIMACTERIC ST 12/25/2018 KARIN MUSTAFA FACC, ALI FACP CCDS Ot 780.79 OTH MALAISE FATIGUE 12/25/2018 KARIN MUSTAFA FACC, ALI FACP CCDS Ot 786.09 RESPIRATORY ABNORM NEC 12/25/2018 KARIN MUSTAFA FACC, ALI FACP CCDS Ot 786.50 CHEST PAIN NOS 12/25/2018 KARIN MUSTAFA FACC, ALI FACP CCDS Ot 530.81 ESOPHAGEAL REFLUX 12/25/2018 KARIN MUSTAFA FACC, ALI FACP CCDS Ot 627.2 SYMPT MENOPAUSE OR FEMALE CLIMACTERIC ST 12/25/2018 KARIN MUSTAFA FACC, ALI FACP CCDS Ot 780.79 OTH MALAISE FATIGUE 12/25/2018 KARIN MUSTAFA FAC, ALI FACP CCDS Ot 786.09 RESPIRATORY ABNORM NEC 12/25/2018 KARIN MUSTAFA FAC, ALI FACP CCDS Ot 786.50 CHEST PAIN NOS 12/25/2018 GUSTAVO MUSTAFA, JUAN Monterroso Ot 785.9 CARDIOVAS SYS SYMP NEC 12/25/2018 BLADIMIR ARCE BRICK DROPPER Ot I65.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 AND STENOSIS OF BILATERAL BUCK 12/25/2018 BLADIMIR ARCE BRICK DROPPER Ot M19.031 PRIMARY OSTEOARTHRITIS, RIGHT WRIST 12/25/2018 THALIA HU COMBUSTION ANALYST Ot M25.521 PAIN IN RIGHT ELBOW 12/25/2018 THALIA HU COMBUSTION ANALYST Ot M79.631 PAIN IN RIGHT FOREARM 12/25/2018 MIGUELLISA Monterroso DO Ot M24.831 OTH SPECIFIC JOINT DERANGEMENTS OF RIGHT 12/25/2018 MIGUELLISA Monterroso DO Ot M25.531 PAIN IN RIGHT WRIST 12/25/2018 LISA RIVERA DO Ot M65.841 OTHER SYNOVITIS AND TENOSYNOVITIS, RIGHT 12/25/2018 BLADIMIR ARCE BRICK DROPPER Ot K44.9 DIAPHRAGMATIC HERNIA WITHOUT OBSTRUCTION 12/25/2018 BLADIMIR ARCE BRICK DROPPER Ot K52.9 NONINFECTIVE GASTROENTERITIS AND COLITIS 12/25/2018 BLADIMIR ARCE BRICK DROPPER Ot K76.0 FATTY (CHANGE OF) LIVER, NOT ELSEWHERE C 12/25/2018 BLADIMIR ARCE BRICK DROPPER Ot N28.1 CYST OF KIDNEY, ACQUIRED 12/25/2018 BLADIMIR ARCE BRICK DROPPER Ot Z90.49 ACQUIRED ABSENCE OF OTHER SPECIFIED PART 12/25/2018 BLADIMIR ARCE BRICK DROPPER Ot Z96.641 PRESENCE OF RIGHT ARTIFICIAL HIP JOINT 12/25/2018 BAYLEE MUSTAFA, TREVOR Cuellar Ot K21.9 GASTRO-ESOPHAGEAL REFLUX DISEASE WITHOUT 12/25/2018 BAYLEE MUSTAFA, TREVOR Cuellar Ot Z01.818 ENCOUNTER FOR OTHER PREPROCEDURAL EXAMIN 12/25/2018 BAYLEE MUSTAFA, TREVOR Cuellar Ot Z12.11 ENCOUNTER FOR SCREENING FOR MALIGNANT NE 12/25/2018 TORRES GREENE COMBUSTION ANALYST Ot R09.89 OTH SYMPTOMS AND SIGNS INVOLVING THE CIR 12/25/2018 TORRES GREENE COMBUSTION ANALYST Ot M25.551 PAIN IN RIGHT HIP 12/25/2018 TRORES GREENE COMBUSTION ANALYST Ot Z96.643 PRESENCE OF ARTIFICIAL HIP JOINT, BILATE 12/25/2018 TORRES GREENE COMBUSTION ANALYST Ot M25.551 PAIN IN RIGHT HIP 12/25/2018 TORRES GREENE COMBUSTION ANALYST Ot M79.651 PAIN IN RIGHT THIGH 12/25/2018 TORRES GREENE COMBUSTION ANALYST Ot R20.0 ANESTHESIA OF SKIN 12/25/2018 TORRES GREENE COMBUSTION ANALYST Ot R53.1 WEAKNESS 12/25/2018 TORRES GREENE COMBUSTION ANALYST Ot Z90.710 ACQUIRED ABSENCE OF BOTH CERVIX AND UTER 12/25/2018 TORRES GREENE COMBUSTION ANALYST Ot Z96.641 PRESENCE OF RIGHT ARTIFICIAL HIP JOINT 12/25/2018 TORRES GREENE COMBUSTION ANALYST Ot M47.817 SPONDYLS W/O MYELOPATHY OR RADICULOPATHY 12/25/2018 MARCO ANTONIO CLAIRE SATINDER R Ot 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 Results Test [...] urinalysis with reflex to culture NO NRG Complete blood count (CBC) with automated white blood cell (WBC) differential - 12/23/18 17:45 Blood leukocytes automated count (number/volume) 11.8 10*3/uL 4.3-11.0 Blood erythrocytes automated count (number/volume) 5.13 10*6/uL 4.35-5.85 Venous blood hemoglobin measurement (mass/volume) 16.1 g/dL 11.5-16.0 Blood hematocrit (volume fraction) 46 % 35-52 Automated erythrocyte mean corpuscular volume 89 [foz_us] 80-99 Automated erythrocyte mean corpuscular hemoglobin (mass per erythrocyte) 31 pg 25-34 Automated erythrocyte mean corpuscular hemoglobin concentration measurement ( mass/volume) 35 g/dL 32-36 Automated erythrocyte distribution width ratio 13.0 % 10.0-14.5 Automated blood platelet count (count/volume) 256 10*3/uL 130-400 Automated blood platelet mean volume measurement 9.4 [foz_us] 7.4-10.4 Automated blood neutrophils/100 leukocytes 60 % 42-75 Automated blood lymphocytes/100 leukocytes 31 % 12-44 Blood monocytes/100 leukocytes 7 % 0-12 Automated blood eosinophils/100 leukocytes 1 % 0-10 Automated blood basophils/100 leukocytes 0 % 0-10 Blood neutrophils automated count (number/volume) 7.1 10*3 1.8-7.8 Blood lymphocytes automated count (number/volume) 3.7 10*3 1.0-4.0 Blood monocytes automated count (number/volume) 0.9 10*3 0.0-1.0 Automated eosinophil count 0.1 10*3/uL 0.0-0.3 Automated blood basophil count (count/volume) 0.0 10*3/uL 0.0-0.1 Comprehensive metabolic panel - 12/23/18 17:45 Serum or plasma sodium measurement (moles/volume) 139 mmol/L 135-145 Serum or plasma potassium measurement (moles/volume) 3.7 mmol/L 3.6-5.0 Serum or plasma chloride measurement (moles/volume) 107 mmol/L 98-107 Carbon dioxide 18 mmol/L 21-32 Serum or plasma anion gap determination (moles/volume) 14 mmol/L 5-14 Serum or plasma urea nitrogen measurement (mass/volume) 10 mg/dL 7-18 Serum or plasma creatinine measurement (mass/volume) 0.89 mg/dL 0.60-1.30 Serum or plasma urea nitrogen/creatinine mass ratio 11 NRG Serum or plasma creatinine measurement with calculation of estimated glomerular filtration rate > NRG Serum or plasma glucose measurement (mass/volume) 115 mg/dL 70-105 Serum or plasma calcium measurement (mass/volume) 10.4 mg/dL 8.5-10.1 Serum or plasma total bilirubin measurement (mass/volume) 0.5 mg/dL 0.1-1.0 Serum or plasma alkaline phosphatase measurement (enzymatic activity/volume) 104 U/L 40-136 Serum or plasma aspartate aminotransferase measurement (enzymatic activity/ volume) 29 U/L 5-34 Serum or plasma alanine aminotransferase measurement (enzymatic activity/volume ) 27 U/L 0-55 Serum or plasma protein measurement (mass/volume) 7.6 g/dL 6.4-8.2 Serum or plasma albumin measurement (mass/volume) 4.4 g/dL 3.2-4.5 CALCIUM CORRECTED 10.1 mg/dL 8.5-10.1 Serum or plasma troponin i.cardiac measurement (mass/volume) - 12/23/18 17:45 Serum or plasma troponin i.cardiac measurement (mass/volume) < ng/ mL <0.028 Lipase - 12/23/18 17:45 Lipase 16 U/L 8-78 Blood lactic acid measurement (moles/volume) - 12/23/18 17:45 Blood lactic acid measurement (moles/volume) 2.06 mmol/L 0.50-2.00 Serum or plasma lactate measurement (moles/volume) - 12/23/18 19:40 Serum or plasma lactate measurement (moles/volume) 1.17 mmol/L 0.50-2.00 Complete urinalysis with reflex to culture - 12/23/18 19:50 Urine color determination YELLOW NRG Urine clarity determination SLIGHTLY CLOUDY NRG Urine pH measurement by test strip 7 5-9 Specific gravity of urine by test strip 1.010 1.016- 1.022 Urine protein assay by test strip, semi-quantitative NEGATIVE NEGATIVE Urine glucose detection by automated test strip NEGATIVE NEGATIVE Erythrocytes detection in urine sediment by light microscopy NEGATIVE NEGATIVE Urine ketones detection by automated test strip 1+ NEGATIVE Urine nitrite detection by test strip [...] in urine sediment by light microscopy NEGATIVE NRG Crystals detection in urine sediment by light microscopy NONE NRG Casts detection in urine sediment by light microscopy NONE NRG Mucus detection in urine sediment by light microscopy NEGATIVE NRG Complete urinalysis with reflex to culture NO NRG Complete blood count (CBC) with automated white blood cell (WBC) differential - 12/24/18 02:55 Blood leukocytes automated count (number/volume) 10.4 10*3/uL 4.3-11.0 Blood erythrocytes automated count (number/volume) 4.99 10*6/uL 4.35-5.85 Venous blood hemoglobin measurement (mass/volume) 15.5 g/dL 11.5-16.0 Blood hematocrit (volume fraction) 45 % 35-52 Automated erythrocyte mean corpuscular volume 91 [foz_us] 80-99 Automated erythrocyte mean corpuscular hemoglobin (mass per erythrocyte) 31 pg 25-34 Automated erythrocyte mean corpuscular hemoglobin concentration measurement ( mass/volume) 34 g/dL 32-36 Automated erythrocyte distribution width ratio 13.1 % 10.0-14.5 Automated blood platelet count (count/volume) 259 10*3/uL 130-400 Automated blood platelet mean volume measurement 9.6 [foz_us] 7.4-10.4 Automated blood neutrophils/100 leukocytes 80 % 42-75 Automated blood lymphocytes/100 leukocytes 17 % 12-44 Blood monocytes/100 leukocytes 4 % 0-12 Automated blood eosinophils/100 leukocytes 0 % 0-10 Automated blood basophils/100 leukocytes 0 % 0-10 Blood neutrophils automated count (number/volume) 8.3 10*3 1.8-7.8 Blood lymphocytes automated count (number/volume) 1.7 10*3 1.0-4.0 Blood monocytes automated count (number/volume) 0.4 10*3 0.0-1.0 Automated eosinophil count 0.0 10*3/uL 0.0-0.3 Automated blood basophil count (count/volume) 0.0 10*3/uL 0.0-0.1 Comprehensive metabolic panel - 12/24/18 02:55 Serum or plasma sodium measurement (moles/volume) 140 mmol/L 135-145 Serum or plasma potassium measurement (moles/volume) 4.0 mmol/L 3.6-5.0 Serum or plasma chloride measurement (moles/volume) 106 mmol/L 98-107 Carbon dioxide 24 mmol/L 21-32 Serum or plasma anion gap determination (moles/volume) 10 mmol/L 5-14 Serum or plasma urea nitrogen measurement (mass/volume) 11 mg/dL 7-18 Serum or plasma creatinine measurement (mass/volume) 0.83 mg/dL 0.60-1.30 Serum or plasma urea nitrogen/creatinine mass ratio 13 NRG Serum or plasma creatinine measurement with calculation of estimated glomerular filtration rate > NRG Serum or plasma glucose measurement (mass/volume) 142 mg/dL 70-105 Serum or plasma calcium measurement (mass/volume) 10.0 mg/dL 8.5-10.1 Serum or plasma total bilirubin measurement (mass/volume) 0.4 mg/dL 0.1-1.0 Serum or plasma alkaline phosphatase measurement (enzymatic activity/volume) 96 U/L 40-136 Serum or plasma aspartate aminotransferase measurement (enzymatic activity/ volume) 28 U/L 5-34 Serum or plasma alanine aminotransferase measurement (enzymatic activity/volume ) 29 U/L 0-55 Serum or plasma protein measurement (mass/volume) 7.3 g/dL 6.4-8.2 Serum or plasma albumin measurement (mass/volume) 4.3 g/dL 3.2-4.5 CALCIUM CORRECTED 9.8 mg/dL 8.5-10.1 Encounters ACCT No. Visit Date/Time Discharge Status Pt. Type Provider Facility Loc./Unit Complaint [id number] 12/23/2018 19:36:00 12/25/2018 09:50:00 DIS Inpatient JUAN CHEN MD [facility] ICU SBO VS ILEUS [id number] 09/04/2018 14:15:00 10/17/2018 15:33:00 DIS Outpatient SATINDER AYERS [facility] L4-L5 BACK PAIN [id number] 09/19/2018 15:03:00 09/19/2018 19:19:00 DIS Emergency FRANK DEUTSCH APRN [facility] ER SYNCOPE [id number] 08/04/2018 13:41:00 08/04/2018 23:59:59 CLS Outpatient SATINDER AYERS [facility] RAD BACK PAIN [id number] 07/14/2018 08:22:00 07/14/2018 23:59:59 CLS Outpatient TORRES GREENE APRN [facility] RAD LOW BACK PAIN [id number] 07/07/2018 15:02:00 07/07/2018 23:59:59 CLS Preadmit BLADIMIR ARCE BRICK DROPPER [facility] RAD DYSPHAGIA [id number] 06/16/2018 07:22:00 06/16/2018 08:55:00 DIS Outpatient MIGUEL BARBOZA MD [facility] CATARACT LEFT EYE [id number] 06/14/2018 05:57:00 06/14/2018 13:26:00 DIS Outpatient MIGUEL BARBOZA MD [facility] PREOP CATARACT LEFT EYE [id number] 05/30/2018 07:19:00 05/30/2018 08:54:00 DIS Outpatient MIGUEL BARBOZA MD [facility] CATARACT RIGHT EYE [id number] 05/27/2018 10:06:00 05/27/2018 23:59:59 CLS Outpatient TORRES GREENE APRN [facility] RAD RT HIP PAIN [id number] 05/25/2018 06:22:00 05/25/2018 14:00:00 DIS Outpatient MIGUEL BARBOZA MD [facility] PREOP CATARACT RIGHT EYE [id number] 05/23/2018 14:37:00 05/23/2018 23:59:59 CLS Outpatient TORRES GREENE APRN [facility] RAD RIGHT HIP PAIN [id number] 04/14/2018 14:05:00 04/14/2018 23:59:59 CLS Outpatient TORRES GREENE APRN [facility] RAD BRUIT [id number] 07/25/2017 07:30:00 07/25/2017 11:20:00 DIS Outpatient TREVOR BEACH MD [facility] ENDO SCREENING/CHRONIC GERD [id number] 07/21/2017 05:37:00 07/21/2017 11:08:00 DIS Outpatient TREVOR BEACH MD [facility] PREOP COLONOSCOPY, EGD [id number] 07/08/2017 05:20:00 07/08/2017 23:59:59 CLS Outpatient TREVOR BEACH MD [facility] PREOP SCREENING/CHRONIC GERD [id number] 05/13/2017 13:57:00 05/13/2017 23:59:59 CLS Outpatient BLADIMIR ARCE BRICK DROPPER [facility] RAD ABD PAIN [id number] 03/19/2016 17:02:00 03/19/2016 23:59:59 CLS Outpatient LISA RIVERA DO [facility] RAD RT WRIST PAIN [id number] 02/19/2016 09:38:00 02/19/2016 23:59:59 CLS Outpatient THALIA UH APRN [facility] RAD RT ELBOW AND FOREARM PAIN SEVERE [id number] 01/09/2016 14:34:00 01/09/2016 23:59:59 CLS Outpatient BLADIMIR ARCE [facility] RAD RT WRIST PAIN [id number] 11/30/2015 09:03:00 11/30/2015 13:12:00 DIS Emergency BRITT MUSTAFA, SATINDER Parra [facility] ER BODY ACHES,VOMITING, DIARRHEA [id number] 11/06/2015 12:33:00 11/06/2015 23:59:59 CLS Outpatient BLADIMIR ARCE BRICK DROPPER [facility] RAD STENOSIS [id number] 11/18/2014 11:00:00 11/18/2014 23:59:59 CLS Outpatient GUSTAVO MUSTAFA, JUAN Monterroso [facility] RAD CAROTID BRUIT [id number] 07/30/2013 10:59:00 07/30/2013 23:59:59 CLS Outpatient YULIET FRAZIER MD, FACC, FACP CCDS [facility] RAD CP,DYSPNEA, WEAKNESS [id number] 07/25/2013 07:44:00 07/25/2013 23:59:59 CLS Outpatient YULIET FRAZIER MD, FACC, FACP CCDS [facility] CARD CP,DYSPNEA, WEAKNESS [id number] 12/06/2014 06:47:00 Document Registration [id number] 01/05/2013 08:43:00 Document Registration [id number] 02/11/2012 10:40:00 Document Registration [id number] 10/22/2011 06:11:00 Document Registration [id number] 04/22/2011 08:29:00 Document Registration [id number] 04/06/2011 07:26:00 Document Registration [id number] 03/08/2011 06:38:00 Document Registration [id number] 02/14/2011 16:13:00 Document Registration [id number] 12/10/2010 05:38:00 Document Registration [id number] 12/03/2010 11:01:00 Document Registration [id number] 10/28/2010 12:35:00 Document Registration [id number] 10/17/2010 12:21:00 Document Registration [id number] 03/30/2010 09:50:00 Document Registration 0000 08/18/2017 09:45:23 08/18/2017 23:59:59 CLS Outpatient [id number] 11/21/2017 06:33:00 11/21/2017 07:52:00 DIS Emergency HUMBLE BARROS DO [facility] [place] [id number] 05/10/2018 15:20:00 05/10/2018 23:59:59 CLS Outpatient CHARIS LOFTON [facility] [id number] 11/21/2017 06:32:00 11/21/2017 23:59:59 CLS Preadmit [facility] [place]
== END 2018-12-25 09:30 | disposition home or self-care (01) ==
LOC: EDUNIT# 17:20 → ER 17:21 → ICU 19:36 → UNDOADMIN 19:36 → ICU 20:45 → UNDODISIN 12-25 09:50
PROVIDERS: ADMIT Internal Medicine; ATTEND Family Medicine
DX: K56.600 Partial intestinal obstruction, unspecified as to cause (principal); E78.2 Mixed hyperlipidemia; K21.9 Gastro-esophageal reflux disease without esophagitis; F41.9 Anxiety disorder, unspecified; F32.9 Major depressive disorder, single episode, unspecified; M19.91 Primary osteoarthritis, unspecified site; L40.9 Psoriasis, unspecified; Z79.899 Other long term (current) drug therapy
CPT/HCPCS: 36415; 71045; 74177; 80053; 81000; 83605; 83690; 84484; 85025; 90686; 93005; 96374; 96375; 96376

== ENCOUNTER → 2019-06-05 | Outpatient (CLI) | payer MEDICARE, OTHER ==
--- NOTE | 2019-06-05 17:09 | Diagnostic Imaging Report ---
INDICATION: Routine screening. Comparison is made with prior mammogram from 03/30/2010. 2-D and 3-D bilateral screening mammography was performed. The current study was also evaluated with a Computer Aided Detection (CAD) system. 3-D tomosynthesis was also performed and reviewed. FINDINGS: Scattered fibroglandular densities are identified bilaterally. A density in the central right breast on the CC view at the nipple line is noted and appears slightly more prominent than prior exam. Additional views are recommended. No definite corresponding density on the MLO view is seen. There are benign parenchymal and vascular calcifications bilaterally. The axillae are unremarkable. IMPRESSION: Right breast density. Additional views are recommended for further evaluation. ACR BI-RADS Category 0: Incomplete. (Needs additional imaging evaluation). Result letter will be mailed to the patient. Note: At least 10% of breast cancer is not imaged by mammography. Dictated by: Dictated on workstation # [id number]
== END ==
LOC: RAD 11:06
PROVIDERS: ATTEND Nurse Practitioner Family
DX: Z12.31 Encounter for screening mammogram for malignant neoplasm of breast (principal)
CPT/HCPCS: 77067

== ENCOUNTER → 2019-06-14 | Outpatient (CLI) | payer MEDICARE ==
--- NOTE | 2019-06-14 19:24 | Diagnostic Imaging Report ---
INDICATION: Right breast density. Patient presents for additional views. Correlation is made with prior mammogram from 03/30/2010. Unilateral right 2-D and 3-D diagnostic mammography was performed including spot compression CC, rolled CC, and conventional 90-degree lateral views. The current study was also evaluated with a Computer Aided Detection (CAD) system. 3-D tomosynthesis was also performed and reviewed. FINDINGS: There are scattered densities in the right breast. Additional views fail to demonstrate a discrete mass. Area of density noted on screening study may have represented superimposed fibroglandular tissue. There is no mass or malignant-appearing microcalcification. IMPRESSION: Additional views fail to demonstrate a discrete mass. The patient may return to routine annual screening mammography. ACR BI-RADS Category 1: Negative. Result letter will be mailed to the patient. Note: At least 10% of breast cancer is not imaged by mammography. Dictated by: Dictated on workstation # [id number]
== END ==
LOC: RAD 13:45
PROVIDERS: ATTEND Nurse Practitioner Family
DX: R92.2 Inconclusive mammogram (principal)

== ENCOUNTER 2019-11-07 10:39 | Emergency (ER) | payer MEDICARE ==
[~2019-11-07] VITALS: Ht 167.7 cm; Wt 84.1 kg
[2019-11-07] MEDS ORDERED: MECLIZINE 25 MG (ANTIVERT) TAB PO ONE (10:45)
[2019-11-07] MEDS ORDERED: ONDANSETRON 4 MG/2 ML (SDV) Z0FRAN IVP ONE (10:45)
--- NOTE | 2019-11-07 11:01 | ED Neurological Problem ---
General Stated Complaint: DIZZINESS;NAUSEA Source: patient Exam Limitations: no limitations History of Present Illness Date Seen by Provider: Nov 07, 2019 Time Seen by Provider: 10:58 Initial Comments To ER complaint by daughter with reports of dizziness. She first noticed this at about 2 AM when she turned over in bed. He's been unable to ambulate on her own due to the dizziness since then and also developed some nausea. She feels dizzy even at rest history of vertigo "20-30 years ago". Timing/Duration: 1 week Severity: moderate Associated Symptoms: trouble walking Allergies and Home Medications Allergies Coded Allergies: Penicillins (Verified Allergy, Mild, RASH, ITCHING, 05/25/18) codeine (Unverified Allergy, Unknown, RASH, ITCHING, 05/25/18) Home Medications Cyanocobalamin (Vitamin B-12) 1,000 Mcg Tablet.er, 1,000 MCG PO DAILY, (Reported) Duloxetine HCl 60 Mg Capsule.dr, 30 MG PO DAILY Prescribed by: JUAN SHERIDAN on 12/25/18 0848 Esomeprazole Magnesium 40 Mg Cap, 40 MG PO DAILY, (Reported) Meclizine HCl 25 Mg Tablet, 25 MG PO TID PRN for DIZZINESS Prescribed by: FRANK DEUTSCH on 11/07/19 1240 Multivitamin 1 Each Tablet, 1 EACH PO DAILY, (Reported) Patient Home Medication List Home Medication List Reviewed: Yes Review of Systems Review of Systems Constitutional: see HPI Eyes: No Symptoms Reported Ears, Nose, Mouth, Throat: no symptoms reported Respiratory: no symptoms reported Cardiovascular: no symptoms reported Genitourinary: no symptoms reported Musculoskeletal: no symptoms reported Skin: no symptoms reported Psychiatric/Neurological: No Symptoms Reported Endocrine: No Symptoms Reported Hematologic/Lymphatic: No Symptoms Reported Past Mgbvwys-Kykhuf-Gqigda Hx Patient Social History Recent Hopitalizations: No Immunizations Up To Date Date of Pneumonia Vaccine: Dec 23, 2016 Date of Influenza Vaccine: Jul 03, 2016 Seasonal Allergies Seasonal Allergies: No Past Medical History Surgeries: Yes Section, Hysterectomy, Joint Replacement, Orthopedic Respiratory: No Cardiac: Yes High Cholesterol Neurological: No Reproductive Disorders: No 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 0.0oz. 83.598559cc; 32.2 BMI Method:Stated General Appearance: WD/WN, no apparent distress HEENT: PERRL/EOMI, normal ENT inspection, other (no nystagmus) Respiratory: no respiratory distress, no accessory muscle use Gastrointestinal: normal bowel sounds, non tender, soft Extremities: normal range of motion, non-tender Neurologic/Psychiatric: alert, normal mood/affect, oriented x 3 Crainal Nerves: normal hearing, normal speech, PERRL Skin: normal color, warm/dry Progress/Results/Core Measures Results/Orders Lab Results Laboratory Tests Test 11/07/19 11:00 11/07/19 11:25 Range/Units White Blood Count 5.9 4.3-11.0 10^3/uL Red Blood Count 5.06 4.35-5.85 10^6/uL Hemoglobin 15.8 11.5-16.0 G/DL Hematocrit 47 35-52 % Mean Corpuscular Volume 92 80-99 FL Mean Corpuscular Hemoglobin 31 25-34 PG Mean Corpuscular Hemoglobin Concent 34 32-36 G/DL Red Cell Distribution Width 13.4 10.0-14.5 % Platelet Count 238 130-400 10^3/uL Mean Platelet Volume 9.6 7.4-10.4 FL Neutrophils (%) (Auto) 54 42-75 % Lymphocytes (%) (Auto) 38 12-44 % Monocytes (%) (Auto) 6 0-12 % Eosinophils (%) (Auto) 2 0-10 % Basophils (%) (Auto) 1 0-10 % Neutrophils # (Auto) 3.2 1.8-7.8 X 10^3 Lymphocytes # (Auto) 2.3 1.0-4.0 X 10^3 Monocytes # (Auto) 0.3 0.0-1.0 X 10^3 Eosinophils # (Auto) 0.1 0.0-0.3 10^3/uL Basophils # (Auto) 0.0 0.0-0.1 10^3/uL Sodium Level 140 135-145 MMOL/L Potassium Level 4.2 3.6-5.0 MMOL/L Chloride Level 107 98-107 MMOL/L Carbon Dioxide Level 24 21-32 MMOL/L Anion Gap 9 5-14 MMOL/L Blood Urea Nitrogen 13 7-18 MG/DL Creatinine 0.96 0.60-1.30 MG/DL Estimat Glomerular Filtration Rate 56 BUN/Creatinine Ratio 14 Glucose Level 114 H 70-105 MG/DL Calcium Level 9.8 8.5-10.1 MG/DL Corrected Calcium 9.5 8.5-10.1 MG/DL Total Bilirubin 0.4 0.1-1.0 MG/DL Aspartate Amino Transf (AST/SGOT) 38 H 5-34 U/L Alanine Aminotransferase (ALT/SGPT) 38 0-55 U/L Alkaline Phosphatase 122 40-136 U/L Total Protein 7.7 6.4-8.2 GM/DL Albumin 4.4 3.2-4.5 GM/DL Urine Color YELLOW Urine Clarity CLEAR Urine pH 6.0 5-9 Urine Specific [place] 1.020 1.016-1.022 Urine Protein NEGATIVE NEGATIVE Urine Glucose (UA) NEGATIVE NEGATIVE Urine Ketones NEGATIVE NEGATIVE Urine Nitrite NEGATIVE NEGATIVE Urine Bilirubin NEGATIVE NEGATIVE Urine Urobilinogen 0.2 < = 1.0 MG/DL Urine Leukocyte Esterase TRACE H NEGATIVE Urine RBC (Auto) NEGATIVE NEGATIVE Urine RBC NONE /HPF Urine WBC 2-5 /HPF Urine Squamous Epithelial Cells 0-2 /HPF Urine Crystals NONE /LPF Urine Bacteria NEGATIVE /HPF Urine Casts NONE /LPF Urine Mucus NEGATIVE /LPF Urine Culture Indicated NO My Orders Orders - FRANK DEUTSCH APRN Cbc With Automated Diff (11/07/19 10:44) Comprehensive Metabolic Panel (11/07/19 10:44) Ua Culture If Indicated (11/07/19 10:44) Ed Iv/Invasive Line Start (11/07/19 10:44) Meclizine Tablet (Antivert Tablet) (11/07/19 10:45) Ondansetron Injection (Zofran Injectio (11/07/19 10:45) Ct Angio Head/Neck (11/07/19 10:58) Iohexol Injection (Omnipaque 350 Mg/Ml 1 (11/07/19 12:00) Received Contrast (Hold Metformin- Contr (11/07/19 12:00) Ns (Ivpb) (Sodium Chloride 0.9% Ivpb Bag (11/07/19 12:00) Medications Given in ED Current Medications Medications Dose Ordered Sig/[place] Route Start Time Stop Time Status Last Admin Dose Admin Iohexol 75 ml ONCE ONCE IV 11/07/19 12:00 11/07/19 12:01 DC 11/07/19 11:59 75 ML Meclizine HCl 25 mg ONCE ONCE PO 11/07/19 10:45 11/07/19 10:46 DC 11/07/19 11:13 25 MG Ondansetron HCl 4 mg ONCE ONCE IVP 11/07/19 10:45 11/07/19 10:46 DC 11/07/19 11:10 4 MG Sodium Chloride 100 ml ONCE ONCE IV 11/07/19 12:00 11/07/19 12:01 DC 11/07/19 11:59 80 ML Vital Signs/I&O 11/07/19 10:55 Temp 36.8 Pulse 63 Resp 15 B/P (MAP) 132/84 (100) Pulse Ox 94 O2 Delivery Room Air Departure Communication (Admissions) NAME: SOFIA [facility] REC#: [id number] PT STATUS: REG ER : 1940 PHYSICIAN: FRANK DEUTSCH APRN ADMIT DATE: 11/07/19/ER Draft Date of Exam:11/07/19 CT ANGIO HEAD/NECK Clinical indication: Patient with nausea and dizziness. Exams: 1: Head CT with and without IV contrast. Auto Exposure Controls were utilized during the CT exam to meet ALARA standards for radiation dose reduction. 2: CT angiogram of the head and neck performed with 100 cc of Omnipaque 350 IV contrast. Sagittal and coronal MIP reformations were created for better visualization of vascular anatomy. Comparison: CT scan of the neck with and without contrast dated 04/22/2011. Head CT without contrast dated 10/17/2010. Findings: HEAD CT: There is no evidence of acute cerebral infarct, intracranial hemorrhage, or gross mass effect. There is no abnormal IV contrast enhancement. The brain parenchymal volume appears appropriate for patient's age. There are subtle patchy areas of low attenuation white matter changes involving both cervical hemispheres, likely representing chronic small vessel ischemic disease. There is normal patel-white matter distinction. There is no significant midline shift or herniation. There is no evidence of hydrocephalus. The basal cisterns are unremarkable. The skull, extracranial soft tissue, and orbits are unremarkable. The paranasal sinuses are unremarkable. Temporal bones show no significant abnormality. CT ANGIOGRAM: There is dense contrast bolus seen within the left subclavian vein, innominate vein, superior vena cava with streak artifact obscuring adjacent regions. The visualized portions of the bilateral subclavian artery, bilateral CCA, bilateral cervical ICA, and bilateral ECA are patent. The petrous and cavernous portions of bilateral ICA show no significant stenosis. There is a short segment area of mild narrowing involving the left cervical vertebral artery seen at the C3 vertebral body level. The bilateral cervical vertebral arteries are otherwise patent. Intradural bilateral vertebral arteries, basilar artery, bilateral superior cerebellar arteries, and bilateral SOLUTIONS OPERATOR are patent. The bilateral A2 ACAs and their distal branches, and bilateral MCAs and their distal branches are patent. The dural venous sinuses are patent. The neck soft tissue structures are unremarkable. Cervical spine degenerative disease is seen with hypertrophic spurs and diffuse disc bulges. There is at least severe bilateral neural foramen narrowing involving the C4-C5 level and left C3-C4 neural foramen region. There is moderate neural foramen narrowing involving the other neural foramen at the C3 through C7 levels. There is an 8 mm x 9 mm x 24 mm (AP x Trans x CC) prominent area of calcification seen posterior to the C3 and C4 vertebra. This appears to be extradural in location. Considerations may include a hypertrophic area of ossification of the posterior longitudinal ligament versus meningioma versus calcified disc. There is concern for moderate to severe central canal narrowing. IMPRESSION: 1: There is no evidence of acute intracranial process. There is no abnormal IV contrast enhancement. 2: CT angiogram of the head and neck shows no significant stenosis, vascular malformation, aneurysm, or dissection. 3: There is an extradural appearing area of prominent calcification posterior to the C3-C4 level with concern for at least [id number] central canal narrowing. MRI of the cervical spine with and without contrast is suggested for further evaluation. 4: Severe cervical spine degenerative disease. Dictated on workstation # [id number] Dict: 11/07/19 1215 Trans: 11/07/19 1235 [facility] [id number] Interpreted by: NGOZI MATTA MD Electronically signed by: Impression Primary Impression: Vertigo Additional Impression: Cervical stenosis of spinal canal Disposition: 01 HOME, SELF-CARE Condition: Stable Departure-Patient Inst. Decision time for Depature: 12:39 Referrals: JUAN SHERIDAN MD (PCP/Family) Primary Care Physician Patient Instructions: Vertigo (a Type of Dizziness) (DC) Add. Discharge Instructions: 1. Take the dizziness medication as directed 2. Follow-up with Dr. Sheridan later this week or next week for recheck. You did have some abnormal narrowing of the upper part of your spinal canal on CT, this warrants MRI follow-up. Dr. Sheridan's office can help order this. Scripts Ondansetron (Ondansetron Odt) 8 Mg Tab.rapdis 8 MG PO Q6H PRN for NAUSEA/VOMITING, #10 TAB Prov: FRANK DEUTSCH APRN 11/07/19 Meclizine HCl (Meclizine HCl) 25 Mg Tablet 25 MG PO TID PRN for DIZZINESS, #14 TAB Prov: FRANK DEUTSCH CREAMERY WORKER 11/07/19 Copy Copies To 1: JUAN SHERIDAN MD, PETER J APRN Nov 07, 2019 11:01
[2019-11-07 11:13] LABS: BASOPHILS % (AUTO) 1 % (0-10); EOSINOPHILS # (AUTO) 0.1 10^3/uL (0.0-0.3); EOSINOPHILS % (AUTO) 2 % (0-10); HEMATOCRIT 47 % (35-52); HEMOGLOBIN 15.8 G/DL (11.5-16.0); LYMPHOCYTES # (AUTO) 2.3 X 10^3 (1.0-4.0); LYMPHOCYTES % (AUTO) 38 % (12-44); MEAN CORPUSCULAR HEMOGLOBIN 31 PG (25-34); MEAN CORPUSCULAR HGB CONC 34 G/DL (32-36); MEAN CORPUSCULAR VOLUME 92 FL (80-99); MEAN PLATELET VOLUME 9.6 FL (7.4-10.4); MONOCYTES # (AUTO) 0.3 X 10^3 (0.0-1.0); MONOCYTES % (AUTO) 6 % (0-12); NEUTROPHILS # (AUTO) 3.2 X 10^3 (1.8-7.8); NEUTROPHILS % (AUTO) 54 % (42-75); PLATELET COUNT 238 10^3/uL (130-400); RED CELL DISTRIBUTION WIDTH 13.4 % (10.0-14.5); WHITE BLOOD COUNT 5.9 10^3/uL (4.3-11.0)
[2019-11-07 11:38] LABS: ALBUMIN 4.4 GM/DL (3.2-4.5); BILIRUBIN,TOTAL 0.4 MG/DL (0.1-1.0); CALCIUM 9.8 MG/DL (8.5-10.1); CREATININE SERUM 0.96 MG/DL (0.60-1.30); POTASSIUM 4.2 MMOL/L (3.6-5.0); TOTAL PROTEIN 7.7 GM/DL (6.4-8.2)
[2019-11-07 11:45] LABS: BILIRUBIN,URINE NEGATIVE (NEGATIVE); CLARITY,URINE CLEAR; COLOR,URINE YELLOW; GLUCOSE, URINE (UA) NEGATIVE (NEGATIVE); KETONES,URINE NEGATIVE (NEGATIVE); LEUKOCYTE ESTERASE ,URINE TRACE (NEGATIVE); NITRITE,URINE NEGATIVE (NEGATIVE); PROTEIN,URINE NEGATIVE (NEGATIVE)
[2019-11-07 11:56] LABS: BACTERIA,URINE NEGATIVE /HPF; SQUAMOUS EPITHELIAL CELL,UR 0-2 /HPF
[2019-11-07] MEDS ORDERED: NS 100 ML (IVPB) BAG IV ONE (12:00)
[2019-11-07] MEDS ORDERED: HOLD METFORMIN - RECEIVED CONTRAST 20 ML VIAL IV SCH (12:00)
[2019-11-07] MEDS ORDERED: IOHEXOL 350 MG/ML 100 ML (OMNIPAQUE 350) VIAL IV ONE (12:00)
--- NOTE | 2019-11-07 12:10 | NUR ---
Pt reports feeling better; denies needs at this time.
--- NOTE | 2019-11-07 12:35 | Diagnostic Imaging Report ---
Clinical indication: Patient with nausea and dizziness. Exams: 1: Head CT with and without IV contrast. Auto Exposure Controls were utilized during the CT exam to meet ALARA standards for radiation dose reduction. 2: CT angiogram of the head and neck performed with 100 cc of Omnipaque 350 IV contrast. Sagittal and coronal MIP reformations were created for better visualization of vascular anatomy. Comparison: CT scan of the neck with and without contrast dated 04/22/2011. Head CT without contrast dated 10/17/2010. Findings: HEAD CT: There is no evidence of acute cerebral infarct, intracranial hemorrhage, or gross mass effect. There is no abnormal IV contrast enhancement. The brain parenchymal volume appears appropriate for patient's age. There are subtle patchy areas of low attenuation white matter changes involving both cervical hemispheres, likely representing chronic small vessel ischemic disease. There is normal patel-white matter distinction. There is no significant midline shift or herniation. There is no evidence of hydrocephalus. The basal cisterns are unremarkable. The skull, extracranial soft tissue, and orbits are unremarkable. The paranasal sinuses are unremarkable. Temporal bones show no significant abnormality. CT ANGIOGRAM: There is dense contrast bolus seen within the left subclavian vein, innominate vein, superior vena cava with streak artifact obscuring adjacent regions. The visualized portions of the bilateral subclavian artery, bilateral CCA, bilateral cervical ICA, and bilateral ECA are patent. The petrous and cavernous portions of bilateral ICA show no significant stenosis. There is a short segment area of mild narrowing involving the left cervical vertebral artery seen at the C3 vertebral body level. The bilateral cervical vertebral arteries are otherwise patent. Intradural bilateral vertebral arteries, basilar artery, bilateral superior cerebellar arteries, and bilateral DRUG ROOM CLERK are patent. The bilateral A2 ACAs and their distal branches, and bilateral MCAs and their distal branches are patent. The dural venous sinuses are patent. The neck soft tissue structures are unremarkable. Cervical spine degenerative disease is seen with hypertrophic spurs and diffuse disc bulges. There is at least severe bilateral neural foramen narrowing involving the C4-C5 level and left C3-C4 neural foramen region. There is moderate neural foramen narrowing involving the other neural foramen at the C3 through C7 levels. There is an 8 mm x 9 mm x 24 mm (AP x Trans x CC) prominent area of calcification seen posterior to the C3 and C4 vertebra. This appears to be extradural in location. Considerations may include a hypertrophic area of ossification of the posterior longitudinal ligament versus meningioma versus calcified disc. There is concern for moderate to severe central canal narrowing. IMPRESSION: 1: There is no evidence of acute intracranial process. There is no abnormal IV contrast enhancement. 2: CT angiogram of the head and neck shows no significant stenosis, vascular malformation, aneurysm, or dissection. 3: There is an extradural appearing area of prominent calcification posterior to the C3-C4 level with concern for at least mprvqtuo-zq-glpwze central canal narrowing. MRI of the cervical spine with and without contrast is suggested for further evaluation. 4: Severe cervical spine degenerative disease. Dictated by: Dictated on workstation # [id number]
[2019-11-07] MEDS ORDERED: MECL-106 PO (12:40)
[2019-11-07 12:49] VITALS: BP 125/51
[2019-11-07] MEDS ORDERED: ONDA8TAB13 PO (12:49)
== END 2019-11-07 12:49 | disposition home or self-care (01) ==
LOC: EDUNIT# 10:39 → ER 10:40
DX: R42 Dizziness and giddiness (principal); M48.02 Spinal stenosis, cervical region; K21.9 Gastro-esophageal reflux disease without esophagitis; F41.9 Anxiety disorder, unspecified; F32.9 Major depressive disorder, single episode, unspecified; Z85.828 Personal history of other malignant neoplasm of skin; Z88.0 Allergy status to penicillin; Z88.5 Allergy status to narcotic agent
CPT/HCPCS: 36415; 70496; 70498; 80053; 81000; 85025

== ENCOUNTER 2020-12-21 20:33 | Emergency (ER) | payer MEDICARE ==
[~2020-12-21] VITALS: Ht 162 cm; Wt 80.0 kg
[~2020-12-21 20:33] MED LIST changes: -FOLI1TAB24 PO; +FOLI1TAB33 PO; +MECL-149 PO; +ONDA8TAB13 PO
[2020-12-21 21:09] LABS: BILIRUBIN,URINE NEGATIVE (NEGATIVE); CLARITY,URINE SL CLOUDY; COLOR,URINE YELLOW; GLUCOSE, URINE (UA) NEGATIVE (NEGATIVE); KETONES,URINE NEGATIVE (NEGATIVE); LEUKOCYTE ESTERASE ,URINE TRACE (NEGATIVE); NITRITE,URINE NEGATIVE (NEGATIVE); PROTEIN,URINE NEGATIVE (NEGATIVE)
[2020-12-21 21:15] LABS: BACTERIA,URINE NEGATIVE /HPF; WBC,URINE 0-2 /HPF
[2020-12-21] MEDS ORDERED: MECLIZINE 25 MG (ANTIVERT) TAB PO ONE (21:15)
[2020-12-21] MEDS ORDERED: ONDANSETRON 4 MG (ZOFRAN) ORAL DISSOLVE TAB PO ONE (21:15)
--- NOTE | 2020-12-21 21:22 | ED Syncope ---
General Chief Complaint: Dizziness/Syncope Stated Complaint: CHILLS, NAUSEA, DIZZY, JO Nursing Triage Note: Pt here with dizziness x 3 days; reports a hx of vertigo. States she nearly got so dizzy she fell after waking from a nap. Source of Information: Patient Exam Limitations: No Limitations History of Present Illness Date Seen by Provider: Dec 21, 2020 Time Seen by Provider: 20:59 Initial Comments The patient presents to the ER by private conveyance from home with chief complaint that for the past couple days she has been having recurrence of her vertigo with feeling like her balance is off and the world was spinning. She says it is worse when she turns her head briskly to the left. She has had this several times in the past usually for several years apart. She was doing her Jovan maneuvers at home however did not feel like she was getting good relief this time and she says she got vertigo so bad just prior to coming in and that it made her fall down into the chair. She denies striking her head. She is not on blood thinners. She is not having any pain anywhere. She is not having chest pain palpitations or rapid heart rate. No shortness of air or fever. She does feel like her ears both are full and itching. She is not on meclizine. Allergies and Home Medications Allergies Coded Allergies: Penicillins (Verified Allergy, Mild, RASH, ITCHING, 05/25/18) codeine (Unverified Allergy, Unknown, RASH, ITCHING, 05/25/18) Home Medications Cyanocobalamin (Vitamin B-12) 1,000 Mcg Tablet.er, 1,000 MCG PO DAILY, (Reported) Duloxetine HCl 60 Mg Capsule.dr, 30 MG PO DAILY Prescribed by: JUAN CHEN on 12/25/18 0848 Esomeprazole Magnesium 40 Mg Cap, 40 MG PO DAILY, (Reported) Meclizine HCl 25 Mg Tablet, 25 MG PO TID PRN for DIZZINESS Prescribed by: FRANK DEUTSCH on 11/07/19 1240 Meclizine HCl 25 Mg Tablet, 25 MG PO Q6H PRN for VERTIGO Prescribed by: BRIDGER POST on 12/21/20 2316 Multivitamin 1 Each Tablet, 1 EACH PO DAILY, (Reported) Ondansetron 8 Mg Tab.rapdis, 8 MG PO Q6H PRN for NAUSEA/VOMITING Prescribed by: FRANK DEUTSCH on 11/07/19 1249 Ondansetron 4 Mg Tab.rapdis, 4 MG PO Q6H PRN for NAUSEA/VOMITING Prescribed by: BRIDGER POST on 12/21/20 2316 Patient Home Medication List Home Medication List Reviewed: Yes Review of Systems Constitutional: No chills, No diaphoresis EENTM: No ear discharge, No ear pain Respiratory: No cough, No short of breath Cardiovascular: No edema, No palpitations Gastrointestinal: No abdominal pain, No nausea, No vomiting Genitourinary: No discharge, No dysuria Control/STD Prophylaxis: None Musculoskeletal: No back pain, No joint pain All Other Systems Reviewed Negative Unless Noted: Yes Past Mgmjbrw-Eodidh-Sdsfqk Hx Patient Social History Alcohol Use: Denies Use Smoking Status: Never a Smoker 2nd Hand Smoke Exposure: No Recent Infectious Disease Expo: No Recent Hopitalizations: No Immunizations Up To Date Date of Pneumonia Vaccine: Dec 23, 2016 Date of Influenza Vaccine: Jul 03, 2016 Seasonal Allergies Seasonal Allergies: No Past Medical History Surgeries: Yes Section, Hysterectomy, Joint Replacement, Orthopedic Respiratory: No Cardiac: Yes High Cholesterol Neurological: No Reproductive Disorders: No 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 0.0oz. [id number]; 30.00 BMI Method:Stated General Appearance: No Apparent Distress, WD/WN HEENT: PERRL/EOMI, Pharynx Normal, Moist Mucous Membranes, TM Abnormal (L) (Scant amount of bilateral injection with opacified mucus and mild retraction bi lateral but no erythema and nonpainful on manipulation), TM Abnormal (R) Neck: Full Range of Motion, Normal Inspection, Non Tender, Supple Cardiovascular: Regular Rate, Rhythm, No Edema, Normal Peripheral Pulses Respiratory: Lungs Clear, Normal Breath Sounds, No Accessory Muscle Use, No Respiratory Distress Gastrointestinal: Normal Bowel Sounds, No Organomegaly, Non Tender, Soft Neurologic/Psychiatric: Alert, Oriented x3 Cranial Nerves: Normal Hearing, Normal Speech, PERRL, Other (Negative for head impulse test, nystagmus, test of skew findings) Coordination/Gait: Normal Finger to Nose, Normal Gait Motor/Sensory: No Motor Deficit, No Sensory Deficit, No Pronator Drift, Negative Babinski's Sign Skin: Normal Color, Warm/Dry Progress/Results/Core Measures Results/Orders Lab Results Laboratory Tests Test 12/21/20 21:00 12/21/20 21:22 Range/Units Urine Color YELLOW Urine Clarity SL CLOUDY Urine pH 6.0 5-9 Urine Specific [place] <=1.005 1.016-1.022 Urine Protein NEGATIVE NEGATIVE Urine Glucose (UA) NEGATIVE NEGATIVE Urine Ketones NEGATIVE NEGATIVE Urine Nitrite NEGATIVE NEGATIVE Urine Bilirubin NEGATIVE NEGATIVE Urine Urobilinogen 0.2 < = 1.0 MG/DL Urine Leukocyte Esterase TRACE H NEGATIVE Urine RBC (Auto) NEGATIVE NEGATIVE Urine RBC NONE /HPF Urine WBC 0-2 /HPF Urine Squamous Epithelial Cells 2-5 /HPF Urine Crystals NONE /LPF Urine Bacteria NEGATIVE /HPF Urine Casts NONE /LPF Urine Mucus SMALL H /LPF Urine Culture Indicated NO White Blood Count 9.2 4.3-11.0 10^3/uL Red Blood Count 4.53 3.80-5.11 10^6/uL Hemoglobin 14.4 11.5-16.0 g/dL Hematocrit 43 35-52 % Mean Corpuscular Volume 95 80-99 fL Mean Corpuscular Hemoglobin 32 25-34 pg Mean Corpuscular Hemoglobin Concent 34 32-36 g/dL Red Cell Distribution Width 13.1 10.0-14.5 % Platelet Count 237 130-400 10^3/uL Mean Platelet Volume 9.2 9.0-12.2 fL Immature Granulocyte % (Auto) 0 % Neutrophils (%) (Auto) 39 L 42-75 % Lymphocytes (%) (Auto) 52 H 12-44 % Monocytes (%) (Auto) 7 0-12 % Eosinophils (%) (Auto) 2 0-10 % Basophils (%) (Auto) 1 0-10 % Neutrophils # (Auto) 3.5 1.8-7.8 10^3/uL Lymphocytes # (Auto) 4.8 H 1.0-4.0 10^3/uL Monocytes # (Auto) 0.6 0.0-1.0 10^3/uL Eosinophils # (Auto) 0.2 0.0-0.3 10^3/uL Basophils # (Auto) 0.1 0.0-0.1 10^3/uL Immature Granulocyte # (Auto) 0.0 0.0-0.1 10^3/uL Sodium Level 141 135-145 MMOL/L Potassium Level 3.8 3.6-5.0 MMOL/L Chloride Level 107 98-107 MMOL/L Carbon Dioxide Level 23 21-32 MMOL/L Anion Gap 11 5-14 MMOL/L Blood Urea Nitrogen 15 7-18 MG/DL Creatinine 0.82 0.60-1.30 MG/DL Estimat Glomerular Filtration Rate > 60 BUN/Creatinine Ratio 18 Glucose Level 149 H 70-105 MG/DL Calcium Level 9.1 8.5-10.1 MG/DL Corrected Calcium 9.3 8.5-10.1 MG/DL Total Bilirubin 0.2 0.1-1.0 MG/DL Aspartate Amino Transf (AST/SGOT) 20 5-34 U/L Alanine Aminotransferase (ALT/SGPT) 26 0-55 U/L Alkaline Phosphatase 98 40-136 U/L Troponin I < 0.028 <0.028 NG/ML B-Type Natriuretic Peptide 18.6 <100.0 PG/ML Total Protein 6.8 6.4-8.2 GM/DL Albumin 3.8 3.2-4.5 GM/DL My Orders Orders - BRIDGER POST Ekg Tracing (12/21/20 21:04) Continuous Ekg Monitoring (12/21/20 21:04) Cbc With Automated Diff (12/21/20 21:04) Comprehensive Metabolic Panel (12/21/20 21:04) Troponin I (12/21/20 21:04) BNP (12/21/20 21:04) Meclizine Tablet (Antivert Tablet) (12/21/20 21:15) Ondansetron Oral Dissolve Tab (Zofran (12/21/20 21:15) Medications Given in ED Current Medications Medications Dose Ordered Sig/Anson Route Start Time Stop Time Status Last Admin Dose Admin Meclizine HCl 25 mg ONCE ONCE PO 12/21/20 21:15 12/21/20 21:17 DC 12/21/20 21:51 25 MG Ondansetron HCl 4 mg ONCE ONCE PO 12/21/20 21:15 12/21/20 21:17 DC 12/21/20 21:51 4 MG Vital Signs/I&O 12/21/20 20:51 Temp 36.5 Pulse 76 Resp 18 B/P (MAP) 104/80 (88) Pulse Ox 97 O2 Delivery Room Air 2 Blood Pressure Mean: 88 Progress Progress Note #1: Time: 21:19 Progress Note The patient appears to be having a vertiginous episode likely related to her history of chronic BPPV. Plan to get some labs and urine since she did have an episode where she had near syncope. She says she did not fully lose consciousness and did not strike her head. We discussed observation versus imaging and she is going to observe her head for now. She is not having any neurologic findings and has a negative HINTS testing so if her labs are okay then we will give her meclizine, ondansetron and do some Lanny-Hallpike maneuvers to confirm and some Jovan's maneuvers. Progress Note #2: Time: 23:14 Progress Note After the medications the patient symptoms went away. Were going to give her some to go home and she is going to continue doing Jovan maneuvers. If this continues to be a problem she can follow-up with ENT who she is already established with, physical therapy, primary care or return to the ER. Initial ECG Impression Date: Dec 21, 2020 Initial ECG Impression Time: 20:54 Initial ECG Rate: 70 Initial ECG Rhythm: Normal Sinus Initial ECG Intervals: Normal Initial ECG Impression: Normal, Nonspecific Changes Comment Sinus rhythm without clinically relevant ST changes. Departure Impression Primary Impression: BPPV (benign paroxysmal positional vertigo) Qualified Codes: H81.13 - Benign paroxysmal vertigo, bilateral Additional Impression: Bilateral otitis media with effusion Disposition: 01 HOME, SELF-CARE Condition: Stable Departure-Patient Inst. Decision time for Depature: 23:14 Referrals: TANIA CATES MD, HOLLY A MD (PCP/Family) Primary Care Physician Patient Instructions: Vertigo (a Type of Dizziness) (DC) Add. Discharge Instructions: Flonase 2 puffs each nostril daily for the next 1 to 2 weeks until symptoms improve. Drink plenty of fluids. Return to the ER for worsening symptoms. Continue doing your Jovan's maneuvers per the handout if symptoms recur. Meclizine 1 tablet every 6 hours as necessary for vertigo. Ondansetron 1 tablet every 6 hours as necessary for nausea or vomiting. If you cannot get good control of your symptoms despite these interventions then you need to follow-up with your primary care doctor, ear nose and throat surgeon or call physical therapy to be evaluated at [phone]. All discharge instructions reviewed with patient and/or family. Voiced understanding. Scripts Ondansetron (Ondansetron Odt) 4 Mg Tab.rapdis 4 MG PO Q6H PRN for NAUSEA/VOMITING, #10 TAB 0 Refills Prov: BRIDGER POST 12/21/20 Meclizine HCl (Meclizine HCl) 25 Mg Tablet 25 MG PO Q6H PRN for VERTIGO, #20 TAB 0 Refills Prov: BRIDGER POST 12/21/20 BRIDGER POST Dec 21, 2020 21:21
[2020-12-21 21:38] LABS: BASOPHILS # (AUTO) 0.1 10^3/uL (0.0-0.1); BASOPHILS % (AUTO) 1 % (0-10); EOSINOPHILS # (AUTO) 0.2 10^3/uL (0.0-0.3); EOSINOPHILS % (AUTO) 2 % (0-10); HEMATOCRIT 43 % (35-52); HEMOGLOBIN 14.4 g/dL (11.5-16.0); LYMPHOCYTES # (AUTO) 4.8 10^3/uL (1.0-4.0); LYMPHOCYTES % (AUTO) 52 % (12-44); MEAN CORPUSCULAR HEMOGLOBIN 32 pg (25-34); MEAN CORPUSCULAR HGB CONC 34 g/dL (32-36); MEAN CORPUSCULAR VOLUME 95 fL (80-99); MEAN PLATELET VOLUME 9.2 fL (9.0-12.2); MONOCYTES # (AUTO) 0.6 10^3/uL (0.0-1.0); MONOCYTES % (AUTO) 7 % (0-12); NEUTROPHILS # (AUTO) 3.5 10^3/uL (1.8-7.8); NEUTROPHILS % (AUTO) 39 % (42-75); PLATELET COUNT 237 10^3/uL (130-400); WHITE BLOOD COUNT 9.2 10^3/uL (4.3-11.0)
[2020-12-21 21:43] LABS: ALBUMIN 3.8 GM/DL (3.2-4.5); CHLORIDE 107 MMOL/L (98-107); POTASSIUM 3.8 MMOL/L (3.6-5.0); SODIUM 141 MMOL/L (135-145)
[2020-12-21 21:44] LABS: CALCIUM 9.1 MG/DL (8.5-10.1)
[2020-12-21 21:45] LABS: GLUCOSE 149 MG/DL (70-105); TOTAL PROTEIN 6.8 GM/DL (6.4-8.2)
[2020-12-21 21:46] LABS: CARBON DIOXIDE 23 MMOL/L (21-32)
[2020-12-21 21:47] LABS: BILIRUBIN,TOTAL 0.2 MG/DL (0.1-1.0)
[2020-12-21 21:49] LABS: ALKALINE PHOSPHATASE 98 U/L (40-136); CREATININE SERUM 0.82 MG/DL (0.60-1.30); GFR ESTIMATED > 60
[2020-12-21 21:50] LABS: BUN/CREATININE RATIO 18
[2020-12-21 21:52] LABS: ALANINE AMINOTRANSFERASE 26 U/L (0-55)
[2020-12-21] MEDS ORDERED: ONDA4TAB11 PO (23:16)
[2020-12-21] MEDS ORDERED: MECL-149 PO (23:16)
[2020-12-21 23:39] VITALS: BP 146/80
== END 2020-12-21 23:40 | disposition home or self-care (01) ==
LOC: EDUNIT# 20:33 → ER 20:35
DX: H81.13 Benign paroxysmal vertigo, bilateral (principal); H65.93 Unspecified nonsuppurative otitis media, bilateral; K21.9 Gastro-esophageal reflux disease without esophagitis; F41.9 Anxiety disorder, unspecified; F32.9 Major depressive disorder, single episode, unspecified; Z88.0 Allergy status to penicillin; Z88.5 Allergy status to narcotic agent; Z85.828 Personal history of other malignant neoplasm of skin
CPT/HCPCS: 36415; 80053; 81000; 83880; 84484; 85025; 93005

== ENCOUNTER → 2022-10-26 | Outpatient (CLI) | payer MEDICARE ==
[~2022-10-26] MED LIST changes: +DULO60CA7 PO; +ONDA4TAB11 PO
[2022-10-26 10:01] LABS: ABSOLUTE RETIC # 72 10e9/uL (24-90); BASOPHILS # (AUTO) 0.1 10^3/uL (0.0-0.1); BASOPHILS % (AUTO) 1 % (0-10); EOSINOPHILS # (AUTO) 0.3 10^3/uL (0.0-0.3); EOSINOPHILS % (AUTO) 3 % (0-10); HEMATOCRIT 47 % (35-52); HEMOGLOBIN 15.6 g/dL (11.5-16.0); LYMPHOCYTES # (AUTO) 4.7 10^3/uL (1.0-4.0); LYMPHOCYTES % (AUTO) 51 % (12-44); MEAN CORPUSCULAR HEMOGLOBIN 31 pg (25-34); MEAN CORPUSCULAR HGB CONC 34 g/dL (32-36); MEAN CORPUSCULAR VOLUME 92 fL (80-99); MEAN PLATELET VOLUME 9.1 fL (9.0-12.2); MONOCYTES # (AUTO) 0.7 10^3/uL (0.0-1.0); MONOCYTES % (AUTO) 8 % (0-12); NEUTROPHILS # (AUTO) 3.5 10^3/uL (1.8-7.8); NEUTROPHILS % (AUTO) 37 % (42-75); PLATELET COUNT 312 10^3/uL (130-400); RETICULOCYTE % 1.42 % (0.50-2.40); WHITE BLOOD COUNT 9.4 10^3/uL (4.3-11.0)
[2022-10-26 10:34] LABS: BAND NEUTROPHILS 0 %; BASOPHILS % (MANUAL) 0 %; EOSINOPHILS % (MANUAL) 3 %; LYMPHOCYTES % (MANUAL) 19 %; MONOCYTES % (MANUAL) 4 %; NEUTROPHILS % (MANUAL) 36 %
[2022-10-26 10:35] LABS: RBC MORPH NORMAL; REACTIVE LYMPHOCYTES 38 %
== END ==
LOC: LAB 09:29
PROVIDERS: ATTEND Family Medicine
DX: D72.829 Elevated white blood cell count, unspecified (principal); R71.8 Other abnormality of red blood cells
CPT/HCPCS: 36415; 85007; 85027; 85045; 85055

== ENCOUNTER → 2022-11-08 | Outpatient (CLI) | payer MEDICARE | LOC: LAB 11:01 | PROVIDERS: ATTEND Nurse Practitioner Family | DX: D72.820 Lymphocytosis (symptomatic) (principal) | CPT/HCPCS: 36415 ==

== ENCOUNTER → 2022-11-30 | Outpatient (RCR) | payer MEDICARE ==
[2022-11-30 14:34] LABS: BASOPHILS # (AUTO) 0.1 10^3/uL (0.0-0.1); BASOPHILS % (AUTO) 1 % (0-10); EOSINOPHILS # (AUTO) 0.2 10^3/uL (0.0-0.3); EOSINOPHILS % (AUTO) 1 % (0-10); HEMATOCRIT 44 % (35-52); LYMPHOCYTES # (AUTO) 6.1 10^3/uL (1.0-4.0); LYMPHOCYTES % (AUTO) 49 % (12-44); MEAN CORPUSCULAR HEMOGLOBIN 31 pg (25-34); MEAN CORPUSCULAR HGB CONC 34 g/dL (32-36); MEAN CORPUSCULAR VOLUME 92 fL (80-99); MEAN PLATELET VOLUME 9.4 fL (9.0-12.2); MONOCYTES # (AUTO) 0.9 10^3/uL (0.0-1.0); MONOCYTES % (AUTO) 8 % (0-12); NEUTROPHILS % (AUTO) 40 % (42-75); PLATELET COUNT 307 10^3/uL (130-400); WHITE BLOOD COUNT 12.3 10^3/uL (4.3-11.0)
[2022-11-30 14:48] LABS: BILIRUBIN,TOTAL 0.4 MG/DL (0.1-1.0); CALCIUM 10.1 MG/DL (8.5-10.1); CREATININE SERUM 0.97 MG/DL (0.60-1.30); POTASSIUM 4.1 MMOL/L (3.6-5.0); TOTAL PROTEIN 7.5 GM/DL (6.4-8.2)
== END ==
LOC: ONC 13:24
PROVIDERS: ATTEND Internal Medicine Hematology & Oncology
DX: D72.820 Lymphocytosis (symptomatic) (principal)
CPT/HCPCS: 80053; 85025

== ENCOUNTER 2023-03-01 14:30 | Outpatient (RCR) | payer MEDICARE ==
[2023-03-01 14:45] LABS: BASOPHILS # (AUTO) 0.1 10^3/uL (0.0-0.1); BASOPHILS % (AUTO) 1 % (0-10); EOSINOPHILS # (AUTO) 0.1 10^3/uL (0.0-0.3); EOSINOPHILS % (AUTO) 2 % (0-10); HEMATOCRIT 44 % (35-52); HEMOGLOBIN 15.1 g/dL (11.5-16.0); LYMPHOCYTES # (AUTO) 3.8 10^3/uL (1.0-4.0); LYMPHOCYTES % (AUTO) 54 % (12-44); MEAN CORPUSCULAR HEMOGLOBIN 32 pg (25-34); MEAN CORPUSCULAR HGB CONC 34 g/dL (32-36); MEAN CORPUSCULAR VOLUME 92 fL (80-99); MEAN PLATELET VOLUME 9.2 fL (9.0-12.2); MONOCYTES # (AUTO) 0.6 10^3/uL (0.0-1.0); MONOCYTES % (AUTO) 8 % (0-12); NEUTROPHILS # (AUTO) 2.5 10^3/uL (1.8-7.8); NEUTROPHILS % (AUTO) 35 % (42-75); PLATELET COUNT 216 10^3/uL (130-400); WHITE BLOOD COUNT 7.1 10^3/uL (4.3-11.0)
== END 2023-03-02 | disposition home or self-care (01) ==
LOC: ONC 14:30
PROVIDERS: ATTEND Internal Medicine Hematology & Oncology
DX: C91.Z0 Other lymphoid leukemia not having achieved remission (principal)
CPT/HCPCS: 36415; 85025

== ENCOUNTER 2023-05-24 12:52 | Outpatient (RCR) | payer MEDICARE ==
[2023-05-24 13:17] LABS: BASOPHILS # (AUTO) 0.1 10^3/uL (0.0-0.1); BASOPHILS % (AUTO) 1 % (0-10); EOSINOPHILS # (AUTO) 0.3 10^3/uL (0.0-0.3); EOSINOPHILS % (AUTO) 4 % (0-10); HEMATOCRIT 45 % (35-52); LYMPHOCYTES # (AUTO) 3.5 10^3/uL (1.0-4.0); LYMPHOCYTES % (AUTO) 50 % (12-44); MEAN CORPUSCULAR HEMOGLOBIN 31 pg (25-34); MEAN CORPUSCULAR HGB CONC 33 g/dL (32-36); MEAN CORPUSCULAR VOLUME 92 fL (80-99); MEAN PLATELET VOLUME 9.6 fL (9.0-12.2); MONOCYTES # (AUTO) 0.5 10^3/uL (0.0-1.0); MONOCYTES % (AUTO) 6 % (0-12); NEUTROPHILS # (AUTO) 2.7 10^3/uL (1.8-7.8); NEUTROPHILS % (AUTO) 39 % (42-75); PLATELET COUNT 228 10^3/uL (130-400)
== END 2023-06-02 | disposition home or self-care (01) ==
LOC: ONC 12:52
PROVIDERS: ATTEND Internal Medicine Hematology & Oncology
DX: C91.Z0 Other lymphoid leukemia not having achieved remission (principal)
CPT/HCPCS: 85025; G0463; 99214

== ENCOUNTER 2023-06-19 12:07 | Emergency (ER) | payer MEDICARE ==
[~2023-06-19] VITALS: Ht 167 cm; Wt 72.5 kg
[2023-06-19] MEDS ORDERED: ONDANSETRON INJECTION 4 MG/2 ML (SDV) IVP ONE (12:30)
[2023-06-19] MEDS ORDERED: NS IV 500 ML 500 ML IV SCH (12:30)
--- NOTE | 2023-06-19 12:30 | ED General ---
General Stated Complaint: BODY PAIN/VOMITING/DIARRHEA Source of Information: Patient Exam Limitations: No Limitations History of Present Illness Date Seen by Provider: Jun 19, 2023 Time Seen by Provider: 12:16 Initial Comments 82-year-old female presents emerged department today for body aches, nausea vomiting and headache. Symptoms started yesterday morning and have been progressive. No fevers or chills. No sick contacts. She has no abdominal pain just "queasiness." She has had some loose stools as well. Emesis is nonbloody nonbilious. Stools are nonbloody. All other systems reviewed and negative except documented per HPI. Voice recognition software was used to help create this chart Allergies and Home Medications Allergies Coded Allergies: Penicillins (Verified Allergy, Mild, RASH, ITCHING, 05/25/18) codeine (Unverified Allergy, Unknown, RASH, ITCHING, 05/25/18) Patient Home Medication List Home Medication List Reviewed: Yes Cephalexin (Cephalexin) 500 Mg Tablet, 500 MG PO BID Prescribed by: ISAURA WHITTINGTON MD on 06/19/23 1350 Cyanocobalamin (Vitamin B-12) (Vitamin B-12) 1,000 Mcg Tablet.er, 1,000 MCG PO DAILY, (Reported) Entered as Reported by: MARLO FINNEGAN on 05/25/18 1358 Duloxetine HCl (Cymbalta) 60 Mg Capsule.dr, 30 MG PO DAILY Prescribed by: JUAN CHEN on 12/25/18 0848 Esomeprazole Magnesium (Nexium) 40 Mg Cap, 40 MG PO DAILY, (Reported) Entered as Reported by: MARLO FINNEGAN on 05/25/18 1358 Meclizine HCl (Meclizine HCl) 25 Mg Tablet, 25 MG PO TID PRN for DIZZINESS Prescribed by: FRANK DEUTSCH on 11/07/19 1240 Meclizine HCl (Meclizine HCl) 25 Mg Tablet, 25 MG PO Q6H PRN for VERTIGO Prescribed by: BRIDGER POST on 12/21/20 2316 Multivitamin (Daily Multiple Vitamin) 1 Each Tablet, 1 EACH PO DAILY, (Reported) Entered as Reported by: MARLO FINNEGAN on 05/25/18 1358 Ondansetron (Ondansetron Odt) 8 Mg Tab.rapdis, 8 MG PO Q6H PRN for NAUSEA/VOMITING Prescribed by: FRANK DEUTSCH on 11/07/19 1249 Ondansetron (Ondansetron Odt) 4 Mg Tab.rapdis, 4 MG PO Q6H PRN for NAUSEA/VOMITING Prescribed by: BRIDGER POST on 12/21/20 9176 Review of Systems Review of Systems Constitutional: see HPI Past Lbuighz-Qquasg-Ajlmbc Hx Patient Social History Tobacco Use?: No Use of E-Cig and/or Vaping dev: No Substance use?: No Alcohol Use?: No Seasonal Allergies Seasonal Allergies: No Past Medical History Surgeries: Yes Section, Hysterectomy, Joint Replacement, Orthopedic Respiratory: No Cardiac: Yes High Cholesterol Neurological: No 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 0.0oz. 83.339161uc; 30.00 BMI Method:Stated General Appearance: No Apparent Distress, WD/WN HEENT: Normal ENT Inspection, Pharynx Normal Neck: Normal Inspection, Supple Respiratory: Chest Non Tender, Lungs Clear, Normal Breath Sounds Cardiovascular: Regular Rate, Rhythm, No Murmur, Normal Peripheral Pulses Gastrointestinal: Normal Bowel Sounds, No Organomegaly, Non Tender, Soft Extremity: Normal Capillary Refill Neurologic/Psychiatric: Alert, No Motor/Sensory Deficits Skin: Normal Color, Warm/Dry Progress/Results/Core Measures Suspected Sepsis SIRS Temperature: Pulse: Respiratory Rate: Laboratory Tests 06/19/23 12:28: White Blood Count 7.4 Blood Pressure / Mean: Laboratory Tests 06/19/23 12:28: Creatinine 0.94, Platelet Count 221, Total Bilirubin 0.6 Results/Orders Lab Results Laboratory Tests Test 06/19/23 12:28 06/19/23 13:15 Range/Units White Blood Count 7.4 4.3-11.0 10^3/uL Red Blood Count 5.26 H 3.80-5.11 10^6/uL Hemoglobin 16.1 H 11.5-16.0 g/dL Hematocrit 48 35-52 % Mean Corpuscular Volume 91 80-99 fL Mean Corpuscular Hemoglobin 31 25-34 pg Mean Corpuscular Hemoglobin Concent 34 32-36 g/dL Red Cell Distribution Width 13.4 10.0-14.5 % Platelet Count 221 130-400 10^3/uL Mean Platelet Volume 9.1 9.0-12.2 fL Immature Granulocyte % (Auto) 0 % Neutrophils (%) (Auto) 73 42-75 % Lymphocytes (%) (Auto) 19 12-44 % Monocytes (%) (Auto) 5 0-12 % Eosinophils (%) (Auto) 3 0-10 % Basophils (%) (Auto) 0 0-10 % Neutrophils # (Auto) 5.4 1.8-7.8 10^3/uL Lymphocytes # (Auto) 1.4 1.0-4.0 10^3/uL Monocytes # (Auto) 0.4 0.0-1.0 10^3/uL Eosinophils # (Auto) 0.2 0.0-0.3 10^3/uL Basophils # (Auto) 0.0 0.0-0.1 10^3/uL Immature Granulocyte # (Auto) 0.0 0.0-0.1 10^3/uL Sodium Level 140 135-145 MMOL/L Potassium Level 4.1 3.6-5.0 MMOL/L Chloride Level 103 98-107 MMOL/L Carbon Dioxide Level 25 21-32 MMOL/L Anion Gap 12 5-14 MMOL/L Blood Urea Nitrogen 14 7-18 MG/DL Creatinine 0.94 0.60-1.30 MG/DL Estimat Glomerular Filtration Rate 61 BUN/Creatinine Ratio 15 Glucose Level 120 H 70-105 MG/DL Calcium Level 9.7 8.5-10.1 MG/DL Corrected Calcium 9.5 8.5-10.1 MG/DL Total Bilirubin 0.6 0.1-1.0 MG/DL Aspartate Amino Transf (AST/SGOT) 38 H 5-34 U/L Alanine Aminotransferase (ALT/SGPT) 28 0-55 U/L Alkaline Phosphatase 111 40-136 U/L Total Protein 8.0 6.4-8.2 GM/DL Albumin 4.3 3.2-4.5 GM/DL Influenza Type A (RT-PCR) Not Detected Not Detecte Influenza Type B (RT-PCR) Not Detected Not Detecte SARS-CoV-2 RNA (RT-PCR) Not Detected Not Detecte Urine Color YELLOW Urine Clarity CLEAR Urine pH 6.0 5-9 Urine Specific [place] 1.020 1.016-1.022 Urine Protein TRACE H NEGATIVE Urine Glucose (UA) NEGATIVE NEGATIVE Urine Ketones TRACE H NEGATIVE Urine Nitrite NEGATIVE NEGATIVE Urine Bilirubin NEGATIVE NEGATIVE Urine Urobilinogen 0.2 < = 1.0 MG/DL Urine Leukocyte Esterase 1+ H NEGATIVE Urine RBC (Auto) NEGATIVE NEGATIVE Urine RBC NONE /HPF Urine WBC 10-25 H /HPF Urine Squamous Epithelial Cells 0-2 /HPF Urine Crystals NONE /LPF Urine Bacteria MODERATE H /HPF Urine Casts NONE /LPF Urine Mucus SMALL H /LPF Urine Culture Indicated YES My Orders Orders - ISAURA WHITTINGTON DO Comprehensive Metabolic Panel (06/19/23 12:26) Cbc With Automated Diff (06/19/23 12:26) Ondansetron Injection (Ondansetron Inj (06/19/23 12:30) Ns Iv 500 Ml (Ns Iv 500 Ml) (06/19/23 12:30) Ua Culture If Indicated (06/19/23 12:26) Covid 19 Inhouse Test (06/19/23 12:28) Influenza A And B By Pcr (06/19/23 12:28) Urine Culture (06/19/23 13:15) Medications Given in ED Current Medications Medications Dose Ordered Sig/Anson Route Start Time Stop Time Status Last Admin Dose Admin Ondansetron HCl 4 mg ONCE ONCE IVP 06/19/23 12:30 06/19/23 12:31 DC 06/19/23 12:39 4 MG Vital Signs/I&O 06/19/23 12:20 Temp 37.6 Pulse 91 Resp 18 B/P (MAP) 114/72 (86) Pulse Ox 96 O2 Delivery Room Air Capillary Refill : Departure Communication (Admissions) Patient is hemodynamically stable with normal vital signs and reassuring exam. Labs are unremarkable outside of a UA with urinary tract infection indicated by white blood cells, bacteria and positive leuk esterase. Her kidney function is normal. COVID and flu testing are negative. She be discharged home with antibiotics in stable condition. Impression Primary Impression: UTI (urinary tract infection) Qualified Codes: N30.00 - Acute cystitis without hematuria Additional Impression: Body aches Disposition: HOME, SELF-CARE Condition: Stable Departure-Patient Inst. Referrals: JUAN CHEN MD (PCP/Family) Primary Care Physician Patient Instructions: Urinary Tract Infection, Adult ED Add. Discharge Instructions: You are seen in the emergency department today for body aches and generally feeling unwell. You have a urinary tract infection. Please take antibiotics as prescribed until they are gone. Your labs are reassuring as is your vital signs and your exam. You may also have a viral illness on top of this which could be causing some of your symptoms. Your COVID and flu test are negative. Follow-up with your primary doctor for any nonemergent needs. Return to the emergency department for any severe concerns. Scripts Cephalexin (Cephalexin) 500 Mg Tablet 500 MG PO BID for 5 Days, #10 TAB Prov: ISAURA WHITTINGTON DO 06/19/23 ISAURA WHITTINGTON DO Jun 19, 2023 12:30
[2023-06-19 12:38] LABS: BASOPHILS % (AUTO) 0 % (0-10); EOSINOPHILS # (AUTO) 0.2 10^3/uL (0.0-0.3); EOSINOPHILS % (AUTO) 3 % (0-10); HEMATOCRIT 48 % (35-52); HEMOGLOBIN 16.1 g/dL (11.5-16.0); LYMPHOCYTES # (AUTO) 1.4 10^3/uL (1.0-4.0); LYMPHOCYTES % (AUTO) 19 % (12-44); MEAN CORPUSCULAR HEMOGLOBIN 31 pg (25-34); MEAN CORPUSCULAR HGB CONC 34 g/dL (32-36); MEAN CORPUSCULAR VOLUME 91 fL (80-99); MEAN PLATELET VOLUME 9.1 fL (9.0-12.2); MONOCYTES # (AUTO) 0.4 10^3/uL (0.0-1.0); MONOCYTES % (AUTO) 5 % (0-12); NEUTROPHILS # (AUTO) 5.4 10^3/uL (1.8-7.8); NEUTROPHILS % (AUTO) 73 % (42-75); PLATELET COUNT 221 10^3/uL (130-400); WHITE BLOOD COUNT 7.4 10^3/uL (4.3-11.0)
[2023-06-19 12:48] LABS: ALBUMIN 4.3 GM/DL (3.2-4.5); POTASSIUM 4.1 MMOL/L (3.6-5.0)
[2023-06-19 12:49] LABS: CALCIUM 9.7 MG/DL (8.5-10.1)
[2023-06-19 12:52] LABS: BILIRUBIN,TOTAL 0.6 MG/DL (0.1-1.0)
[2023-06-19 12:54] LABS: CREATININE SERUM 0.94 MG/DL (0.60-1.30)
[2023-06-19 13:36] LABS: BILIRUBIN,URINE NEGATIVE (NEGATIVE); CLARITY,URINE CLEAR; COLOR,URINE YELLOW; GLUCOSE, URINE (UA) NEGATIVE (NEGATIVE); KETONES,URINE TRACE (NEGATIVE); NITRITE,URINE NEGATIVE (NEGATIVE); PROTEIN,URINE TRACE (NEGATIVE)
[2023-06-19 13:37] LABS: BACTERIA,URINE MODERATE /HPF; LEUKOCYTE ESTERASE ,URINE 1+ (NEGATIVE); SQUAMOUS EPITHELIAL CELL,UR 0-2 /HPF
[2023-06-19] MEDS ORDERED: CEPH500T PO (13:50)
[2023-06-19] MEDS ORDERED: ACETAMINOPHEN 500 MG TABLET PO ONE (14:00)
[2023-06-19 14:12] VITALS: BP 127/57
== END 2023-06-19 14:13 | disposition home or self-care (01) ==
LOC: EDUNIT# 12:07 → ER 12:09
DX: N39.0 Urinary tract infection, site not specified (principal); R51.9 Headache, unspecified; Z20.822 Contact with and (suspected) exposure to COVID-19
CPT/HCPCS: 36415; 80053; 81000; 85025; 87088; 87636

== ENCOUNTER 2023-08-23 13:42 | Outpatient (RCR) | payer MEDICARE ==
[~2023-08-23 13:42] MED LIST changes: +CEPH500T PO; -MECL-149 PO; +MECL-291 PO
[2023-08-23 14:00] LABS: BASOPHILS # (AUTO) 0.1 10^3/uL (0.0-0.1); BASOPHILS % (AUTO) 1 % (0-10); EOSINOPHILS # (AUTO) 0.2 10^3/uL (0.0-0.3); EOSINOPHILS % (AUTO) 3 % (0-10); HEMATOCRIT 46 % (35-52); HEMOGLOBIN 15.3 g/dL (11.5-16.0); LYMPHOCYTES # (AUTO) 3.6 10^3/uL (1.0-4.0); LYMPHOCYTES % (AUTO) 48 % (12-44); MEAN CORPUSCULAR HEMOGLOBIN 31 pg (25-34); MEAN CORPUSCULAR HGB CONC 33 g/dL (32-36); MEAN CORPUSCULAR VOLUME 93 fL (80-99); MONOCYTES # (AUTO) 0.6 10^3/uL (0.0-1.0); MONOCYTES % (AUTO) 8 % (0-12); NEUTROPHILS % (AUTO) 40 % (42-75); PLATELET COUNT 246 10^3/uL (130-400); WHITE BLOOD COUNT 7.5 10^3/uL (4.3-11.0)
== END 2023-09-01 | disposition home or self-care (01) ==
LOC: ONC 13:42
PROVIDERS: ATTEND Internal Medicine Hematology & Oncology
DX: C91.90 Lymphoid leukemia, unspecified not having achieved remission (principal)
CPT/HCPCS: 85025; G0463; 36415; 99214